=== PATIENT | male | born 1935 | race Caucasian/White ===

== ENCOUNTER 2016-05-09 17:47 | Inpatient (IN) | payer OTHER ==
[~2016-05-09] VITALS: Ht 172.7 cm; Wt 80.0 kg
[~2016-05-09 17:47] MED LIST: CHOL1TAB42 PO; FERR325T51 PO
[2016-05-09] MEDS ORDERED: LEVO50TA6 PO (18:29)
--- NOTE | 2016-05-09 18:38 | DIAGNOSTIC IMAGING REPORT ---
CHEST ONE VIEW PORTABLE CLINICAL HISTORY: Gastrointestinal hemorrhage COMPARISON STUDY: 04/21/2015 FINDINGS: The heart is enlarged. There is aortic tortuosity. There is no failure. There is no focal pulmonary consolidation. There is minor basilar atelectasis/consolidation.[ IMPRESSION: Mild cardiomegaly. No acute findings. Electronically signed by: Umang Roberson M.D. 05/09/2016 6:36 PM Dictated Date/Time: 05/09/2016 6:36 PM
[2016-05-09 19:14] LABS: INR 1.1 (0.9-1.1); PARTIAL THROMBOPLASTIN RATIO 1.2
[2016-05-09 19:20] LABS: BLOOD UREA NITROGEN 20 mg/dl (7-18); GLUCOSE 109 mg/dl (70-99)
[2016-05-09 19:21] LABS: ALT/SGPT 39 U/L (12-78); BUN/CREATININE RATIO 10.5 (10-20); CARBON DIOXIDE 23 mmol/L (21-32); CHLORIDE 111 mmol/L (98-107); POTASSIUM 3.7 mmol/L (3.5-5.1); SODIUM 146 mmol/L (136-145)
[2016-05-09 19:26] LABS: ALKALINE PHOSPHATASE 176 U/L (45-117); AST/SGOT 65 U/L (15-37)
[2016-05-09 19:52] LABS: BASO % 0.3 %; BASO ABS # 0.01 K/uL (0-0.2); COMPLETE YES; EOS % 5.4 %; HEMATOCRIT 23.1 % (42-52); IG% 0.3 %; LYMPH % 18.6 %; LYMPH ABS # 0.55 K/uL (1.2-3.4); MEAN CELL VOLUME 89.5 fL (80-100); MEAN CORPUSCULAR HEMOGLOBIN 28.7 pg (25-34); MEAN PLATELET VOLUME 11.5 fL (7.4-10.4); MONO % 6.8 %; NEUT % 68.6 %; PLATELET COUNT 68 K/uL (130-400); PLT ESTIMATE DECREASED; POLYCHROMASIA 1+; RED BLOOD COUNT 2.58 M/uL (4.7-6.1); WHITE BLOOD COUNT 2.95 K/uL (4.8-10.8)
[2016-05-09 20:49] VITALS: BP 155/80; PULSE 67; TEMP 36.7; O2SAT 96
[2016-05-09 21:10] VITALS: BP 184/103; PULSE 69; TEMP 36.9; O2SAT 96
[2016-05-09] MEDS ORDERED: SODIUM CHLORIDE 0.9% 1000ML 1,000 ML IV SCH (21:30)
[2016-05-09] MEDS ORDERED: ONDANSETRON INJ 2 MG/ML 2 ML VIAL IV PRN (21:30)
[2016-05-09] MEDS ORDERED: ACETAMINOPHEN 325 MG TAB PO PRN (21:30)
--- NOTE | 2016-05-09 21:38 | EMERGENCY ROOM VISIT NOTE ---
History Report prepared by Meghan: Mary Ho Under the Supervision of: Dr. Zhao Woo M.D. First contact with patient: 18:04 Chief Complaint: ABNORMAL LABS Stated Complaint: BLOOD LEVEL IS LOW History of Present Illness The patient is a 81 year old male who presents to the Emergency Room with complaints of sudden abnormal labs that were drawn today prior to arrival. The patient states that he had labs drawn today [facility] and was found to be anemic with a hemoglobin of 7. Per records, the patient has a history of an upper GI bleed in March of 2015, hypertension and hypothyroidism. Records indicate that the patient is normally runs chronically low. The patient states that he has been increasingly short of breath with exertion and fatigued. He additionally notes trouble urinating. The patient states that he has noticed his shortness of breath that began about two months ago. The patient's family notes that the patient last was seen by gastroenterology in November and had a colonoscopy. The family notes that the patient also has back pain due to his sciatica. Pt denies LOC, headache, fevers, chills, diaphoresis, hematemesis, visual changes, neck pain, chest pain, nausea, vomiting, abdominal pain, melena , hematochezia, urinary symptoms, numbness, weakness, lymphadenopathy, rash, or other complaints. Source of History: patient Onset: prior to arrival Position: other (global) Quality: other (abnormal labs) Timing: other (sudden) Associated Symptoms: + SOB (with exertion), + fatigue, + urinary symptoms ( trouble urinating) Review of Systems See HPI for pertinent positives and negatives. A total of ten systems were reviewed and were otherwise negative. Past Medical & Surgical Medical Problems: (1) Gastro-esophageal reflux disease without esophagitis (2) Hyperlipidemia (3) Hypertension (4) Liver disease (5) Symptomatic anemia Family History Patient reports no known family medical history. Social History Smoking Status: Former Smoker Alcohol Use: none Marital Status: Occupation Status: retired Current/Historical Medications Scheduled Allopurinol (Zyloprim), 100 MG PO DAILY Amlodipine (Norvasc), 2.5 MG PO DAILY Atorvastatin (Lipitor), 80 MG PO DAILY Carvedilol (Coreg), 0.5 TAB PO BID Ferrous Sulfate (Iron Supplement), 1 TAB PO BID Levothyroxine Sodium (Levothyroxine Sodium), 50 MCG PO QAM Magnesium Oxide (Mg Supplement (Magnesium Oxide), 1 TAB PO BID Omeprazole (Prilosec), 20 MG PO DAILY Sodium Bicarbonate (Sodium Bicarbonate), 1 TAB PO BID Tamsulosin Hcl (Flomax), 0.4 MG PO DAILY Allergies Coded Allergies: Lisinopril (Unverified Allergy, Unknown, UNKNOWN, 05/09/16) Physical Exam Vital Signs Date Time Temp Pulse Resp B/P Pulse Ox O2 Delivery O2 Flow Rate FiO2 05/09/16 21:10 36.9 69 18 184/103 96 05/09/16 20:49 36.7 67 18 155/80 96 05/09/16 20:01 94 18 143/83 97 Room Air 05/09/16 19:20 64 05/09/16 19:00 98 Room Air 05/09/16 17:59 37.0 70 20 117/72 96 Room Air Physical Exam GENERAL: Awake, alert, tired-appearing, in no distress. Mildly short of breath HENT: Normocephalic, atraumatic. Oropharynx unremarkable. EYES: Pale conjunctiva. Sclera non-icteric. NECK: Supple. No nuchal rigidity. FROM. No JVD. RESPIRATORY: Clear to auscultation. CARDIAC: Regular rate, normal rhythm. Extremities warm and well perfused. Pulses equal. ABDOMEN: Soft, non-distended. No tenderness to palpation. No rebound or guarding. No masses. RECTAL: Brown stool, heme positive. MUSCULOSKELETAL: Chest examination reveals no tenderness. The back is symmetrical on inspection without obvious abnormality. There is no CVA tenderness to palpation. No joint edema. LOWER EXTREMITIES: Calves are equal size bilaterally and non-tender. No edema. No discoloration. NEURO: Normal sensorium. No sensory or motor deficits noted. SKIN: No rash or jaundice noted. Medical Decision & Procedures ER Provider Diagnostic Interpretation: X-ray: Per my interpretation, radiologist review. CHEST ONE VIEW PORTABLE CLINICAL HISTORY: Gastrointestinal hemorrhage COMPARISON STUDY: 04/21/2015 FINDINGS: The heart is enlarged. There is aortic tortuosity. There is no failure. There is no focal pulmonary consolidation. There is minor basilar atelectasis/consolidation.[ IMPRESSION: Mild cardiomegaly. No acute findings. Electronically signed by: Umang Roberson M.D. 05/09/2016 6:36 PM Dictated Date/Time: 05/09/2016 6:36 PM Laboratory Results 05/09/16 18:50 Red Blood Count 2.58, Mean Corpuscular Volume 89.5, Mean Corpuscular Hemoglobin 28.7, Mean Corpuscular Hemoglobin Concent 32.0, Mean Platelet Volume 11.5, Neutrophils (%) (Auto) 68.6, Lymphocytes (%) (Auto) 18.6, Monocytes (%) (Auto) 6.8, Eosinophils (%) (Auto) 5.4, Basophils (%) (Auto) 0.3, Neutrophils # (Auto) 2.02, Lymphocytes # (Auto) 0.55, Monocytes # (Auto) 0.20, Eosinophils # (Auto) 0.16, Basophils # (Auto) 0.01 05/09/16 18:50 Test 05/09/16 18:50 White Blood Count 2.95 K/uL (4.8-10.8) Red Blood Count 2.58 M/uL (4.7-6.1) Hemoglobin 7.4 g/dL (14.0-18.0) Hematocrit 23.1 % (42-52) Mean Corpuscular Volume 89.5 fL (80-100) Mean Corpuscular Hemoglobin 28.7 pg (25-34) Mean Corpuscular Hemoglobin Concent 32.0 g/dl (32-36) Platelet Count 68 K/uL (130-400) Mean Platelet Volume 11.5 fL (7.4-10.4) Neutrophils (%) (Auto) 68.6 % Lymphocytes (%) (Auto) 18.6 % Monocytes (%) (Auto) 6.8 % Eosinophils (%) (Auto) 5.4 % Basophils (%) (Auto) 0.3 % Neutrophils # (Auto) 2.02 K/uL (1.4-6.5) Lymphocytes # (Auto) 0.55 K/uL (1.2-3.4) Monocytes # (Auto) 0.20 K/uL (0.11-0.59) Eosinophils # (Auto) 0.16 K/uL (0-0.5) Basophils # (Auto) 0.01 K/uL (0-0.2) RDW Standard Deviation 52.8 fL (36.4-46.3) RDW Coefficient of Variation 16.2 % (11.5-14.5) Immature Granulocyte % (Auto) 0.3 % Immature Granulocyte # (Auto) 0.01 K/uL (0.00-0.02) Platelet Estimate DECREASED Polychromasia 1+ Prothrombin Time 12.0 SECONDS (9.0-12.0) Prothromb Time International Ratio 1.1 (0.9-1.1) Activated Partial Thromboplast Time 31.6 SECONDS (21.0-31.0) Partial Thromboplastin Ratio 1.2 Anion Gap 12.0 mmol/L (3-11) Est Creatinine Clear Calc Drug Dose 33.7 ml/min Estimated GFR () 38.0 Estimated GFR (Non- 32.8 BUN/Creatinine Ratio 10.5 (10-20) Calcium Level 8.0 mg/dl (8.5-10.1) Total Bilirubin 0.7 mg/dl (0.2-1) Direct Bilirubin 0.2 mg/dl (0-0.2) Aspartate Amino Transf (AST/SGOT) 65 U/L (15-37) Alanine Aminotransferase (ALT/SGPT) 39 U/L (12-78) Alkaline Phosphatase 176 U/L (45-117) Troponin I < 0.015 ng/ml (0-0.045) Total Protein 6.9 gm/dl (6.4-8.2) Albumin 3.0 gm/dl (3.4-5.0) Lipase 202 U/L (73-393) Laboratory results reviewed by me ECG Indication: other (abnormal labs) Rate (beats per minute): 67 Rhythm: sinus rhythm Findings: 1st degree AV block, no acute ischemic change, prolonged QT, other ( LVH) ED Course 1803: The patient was evaluated in room A12B. A complete history and physical exam was performed by the medical student. 1849: The patient was evaluated in room A12B. A complete history and physical exam was performed. 2034: I reevaluated the patient and he is resting comfortably. I discussed the exam findings with him and his family and I discussed the treatment plan. He verbalized complete understanding and agreement. The patient will receive a unit of blood and will be evaluated for further treatment. 2041: I discussed the patients case with Devin Cortez. He is going to evaluate the patient for further treatment. Medical Decision Triage Nursing notes reviewed. The patient's presentation and history were concerning for symptomatic anemia with history of GI bleeding. Etiologies such as anemia, diverticulosis, AVM, coagulopathy, colitis, inflammatory bowel disease, malignancy,Mari-Green tear, esophagitis, peptic ulcer disease, variceal bleed, gastritis, as well as others were entertained. Patient was evaluated. He had no specific complaints other than feeling tired and short of breath with exertion. He had pale conjunctiva. The patient's rectal examination had brown stool that was Hemoccult positive. Record review indicates a long history of GI bleeding issues. The patient was typed and crossed. His CBC was done and confirmed his significant anemia with a hemoglobin of 7.4. Chemistry panel was unremarkable. The patient was consented for blood transfusion. The patient was given 2 units of packed red blood cells. Family was in agreement.I gave my usual and customary discussion regarding this issue. [facility] The patient was evaluated in the Emergency Room for further treatment. The chart was completed utilizing [employer] Speech voice recognition software. Grammatical errors, random word insertions, pronoun errors, and incomplete sentences are an occasional consequence of this system due to software limitations, ambient noise, and hardware issues. Any formal questions or concerns about the content, text, or information contained within the body of this dictation should be directly addressed to the physician for clarification. Consults Time Called: 2034 Consulting Physician: Devin Cortez Returned Call: 2041 I discussed the patients case with Devin Cortez. He is going to evaluate the patient for further treatment. Impression Primary Impression: Symptomatic anemia Additional Impression: GI bleed Critical Care I have personally spent greater than 30 minutes of critical care time in the direct management of this patient. This includes bedside care, interpretation of diagnostic studies, and testing, discussion with consultants, patient, and family members, and other required patient management activities. This 30 minutes is in excess of all separately billable procedures. Scribe Attestation The scribe's documentation has been prepared under my direction and personally reviewed by me in its entirety. I confirm that the note above accurately reflects all work, treatment, procedures, and medical decision making performed by me. Departure Information Dispostion Being Evaluated By Hospitalist Referrals Vilma Gooden M.D. (PCP)
[2016-05-09 21:40] VITALS: BP 171/86; PULSE 72; TEMP 36.8; O2SAT 96
[2016-05-09] MEDS ORDERED: PANTOprazole INJ 40 MG in SYRINGE 0 ML IV ONE (21:45)
[2016-05-09 21:58] LABS: URINE APPEARANCE CLEAR (CLEAR); URINE BILIRUBIN NEG (NEG); URINE COLOR YELLOW; URINE NITRITE NEG (NEG); URINE PH 6.5 (4.5-7.5); URINE SPECIFIC GRAVITY 1.013 (1.000-1.030); UROBILINOGEN NEG (NEG)
[2016-05-09 22:00] VITALS: BP 171/90; PULSE 68; TEMP 36.7; O2SAT 97
[2016-05-09 22:00] LABS: MANUAL MICROSCOPIC REQUIRED? NO; REVIEW REQ? NO
--- NOTE | 2016-05-09 22:24 | History and Physical ---
History & Physical Date & Time of Service: May 09, 2016 at 21:40 Chief Complaint: Blood Level Is Low Primary Care Physician: Vilma Gooden M.D. 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 Pt sees Dr. Gooden for primary care and Dr. Milian for GI. Pt had labs done at the [facility] today which showed Hg of 7 and was instructed to come to ER. Pt states lately he has felt dizzy while ambulating, POWELL, and fatigued, similar to when he was anemic in the past. No dizziness or SOB while at rest. Last week he was ill with vomiting and diarrhea which resolved over the weekend. He did not notice any hematemesis or coffee ground emesis. Now having BM once a day. Stools are black in color "for a long time." Family notes he is on an iron pill. No BPRPR. No fevers, chills, URI symptoms, cough, chest pain, abdominal pain, bloating, jaundice, confusion, urinary change, hematuria, epistaxis, gum bleeding. Daughter states last transfusion was in summer of 2015. Last colonoscopy 12/01/15 showed polyp, AVMs s/p thermal therapy and clipped, diverticulosis, and hemorrhoids. Past Medical/Surgical History Medical Problems: (1) Anemia Status: Chronic (2) BPH (benign prostatic hypertrophy) Status: Chronic (3) Cirrhosis Status: Chronic (4) CKD (chronic kidney disease), stage III Status: Chronic (5) Dyslipidemia Status: Chronic (6) Esophageal varices Permanent Comment: Mar 2015- small varices, mild erosive antral gastritis Status: Chronic (7) GERD (gastroesophageal reflux disease) Status: Chronic (8) History of non-ST elevation myocardial infarction (NSTEMI) Permanent Comment: in October 2010 secondary to severe anemia Status: Chronic (9) Hypertension Status: Chronic (10) Hypothyroidism Status: Chronic (11) Liver disease Status: Chronic (12) NAFLD (nonalcoholic fatty liver disease) Status: Chronic (13) Paroxysmal atrial fibrillation Status: Chronic (14) Thrombocytopenia Status: Chronic Surgical Problems: (1) H/O colonoscopy Permanent Comment: 2010- adenomatous polyps; 11/2016- polyp, AVM's treated with thermal therapy and clipped, diverticulosis, hemorrhoids Status: Chronic (2) H/O esophagogastroduodenoscopy Permanent Comment: Mar 2015- small varices, mild erosive antral gastritis Status: Chronic Family History FH: CAD (coronary artery disease) FATHER Social History Smoking Status: Former Smoker Marital Status: Housing status: lives alone Occupational Status: retired Immunizations History of Influenza Vaccine: No History of Tetanus Vaccine?: Unknown History of Pneumococcal: No History of Hepatitis B Vaccine: No Allergies Coded Allergies: Lisinopril (Unverified Allergy, Unknown, UNKNOWN, 05/09/16) Home Medications Scheduled Allopurinol (Zyloprim), 100 MG PO Q2D Amlodipine (Norvasc), 2.5 MG PO DAILY Atorvastatin (Lipitor), 40 MG PO HS Carvedilol (Coreg), 12.5 MG PO BID Ferrous Sulfate (Iron Supplement), 1 TAB PO BID Levothyroxine Sodium (Levothyroxine Sodium), 50 MCG PO QAM Magnesium Oxide (Mg Supplement (Magnesium Oxide), 1 TAB PO BID Omeprazole (Prilosec), 20 MG PO BID Sodium Bicarbonate (Sodium Bicarbonate), 1 TAB PO BID Tamsulosin Hcl (Flomax), 0.4 MG PO DAILY Review of Systems Ten point review of systems performed with pertinent positives and negatives noted in HPI. All other systems negative. Physical Exam Vital Signs Date Time Temp Pulse Resp B/P Pulse Ox O2 Delivery O2 Flow Rate FiO2 05/09/16 20:49 36.7 67 18 155/80 96 05/09/16 20:01 94 18 143/83 97 Room Air 05/09/16 19:20 64 05/09/16 19:00 98 Room Air 05/09/16 17:59 37.0 70 20 117/72 96 Room Air General Appearance: WD/WN, no apparent distress, + pertinent finding (alert cooperative elderly male, appears fatigued but comfortable, blood transfusing, daughters at bedside) Head: normocephalic, atraumatic Eyes: normal inspection, PERRL, EOMI ENT: hearing grossly normal, pharynx normal Neck: supple, trachea midline Respiratory/Chest: lungs clear, normal breath sounds, no respiratory distress, no accessory muscle use Cardiovascular: regular rate, rhythm, no murmur Abdomen/GI: normal bowel sounds, non tender, soft Extremities/Musculoskelatal: normal inspection, no calf tenderness, no pedal edema Neurologic/Psych: alert, normal mood/affect, oriented x 3, + pertinent finding (no gross focal deficit) Skin: normal color, warm/dry Diagnostics Laboratory Results Results Past 24 Hours Test 05/09/16 18:50 Range/Units White Blood Count 2.95 4.8-10.8 K/uL Red Blood Count 2.58 4.7-6.1 M/uL Hemoglobin 7.4 14.0-18.0 g/dL Hematocrit 23.1 42-52 % Mean Corpuscular Volume 89.5 80-100 fL Mean Corpuscular Hemoglobin 28.7 25-34 pg Mean Corpuscular Hemoglobin Concent 32.0 32-36 g/dl Platelet Count 68 130-400 K/uL Mean Platelet Volume 11.5 7.4-10.4 fL Neutrophils (%) (Auto) 68.6 % Lymphocytes (%) (Auto) 18.6 % Monocytes (%) (Auto) 6.8 % Eosinophils (%) (Auto) 5.4 % Basophils (%) (Auto) 0.3 % Neutrophils # (Auto) 2.02 1.4-6.5 K/uL Lymphocytes # (Auto) 0.55 1.2-3.4 K/uL Monocytes # (Auto) 0.20 0.11-0.59 K/uL Eosinophils # (Auto) 0.16 0-0.5 K/uL Basophils # (Auto) 0.01 0-0.2 K/uL RDW Standard Deviation 52.8 36.4-46.3 fL RDW Coefficient of Variation 16.2 11.5-14.5 % Immature Granulocyte % (Auto) 0.3 % Immature Granulocyte # (Auto) 0.01 0.00-0.02 K/uL Platelet Estimate DECREASED Polychromasia 1+ Prothrombin Time 12.0 9.0-12.0 SECONDS Prothromb Time International Ratio 1.1 0.9-1.1 Activated Partial Thromboplast Time 31.6 21.0-31.0 SECONDS Partial Thromboplastin Ratio 1.2 Sodium Level 146 136-145 mmol/L Potassium Level 3.7 3.5-5.1 mmol/L Chloride Level 111 98-107 mmol/L Carbon Dioxide Level 23 21-32 mmol/L Anion Gap 12.0 3-11 mmol/L Blood Urea Nitrogen 20 7-18 mg/dl Creatinine 1.90 0.60-1.40 mg/dl Est Creatinine Clear Calc Drug Dose 33.7 ml/min Estimated GFR () 38.0 Estimated GFR (Non- 32.8 BUN/Creatinine Ratio 10.5 10-20 Random Glucose 109 70-99 mg/dl Calcium Level 8.0 8.5-10.1 mg/dl Total Bilirubin 0.7 0.2-1 mg/dl Direct Bilirubin 0.2 0-0.2 mg/dl Aspartate Amino Transf (AST/SGOT) 65 15-37 U/L Alanine Aminotransferase (ALT/SGPT) 39 12-78 U/L Alkaline Phosphatase 176 45-117 U/L Troponin I < 0.015 0-0.045 ng/ml Total Protein 6.9 6.4-8.2 gm/dl Albumin 3.0 3.4-5.0 gm/dl Lipase 202 73-393 U/L Diagnostic Radiology CHEST ONE VIEW PORTABLE CLINICAL HISTORY: Gastrointestinal hemorrhage COMPARISON STUDY: 04/21/2015 FINDINGS: The heart is enlarged. There is aortic tortuosity. There is no failure. There is no focal pulmonary consolidation. There is minor basilar atelectasis/consolidation.[ IMPRESSION: Mild cardiomegaly. No acute findings. EKG sinus rhythm with 1st degree AV block, poor R wave progression, nonspecific T wave abnormality in anterior leads, in comparison to prior EKG the T wave inversion in anterior leads is new Impression Assessment and Plan SYMPTOMATIC ANEMIA Secondary to GI bleed Hemodynamically stable Transfuse 2 units pRBC Recheck H/H 4 hours after transfusion and CBC in am GI BLEED Heme positive brown stool per ER provider's exam History of esophageal varices, gastritis, intestinal AVM's Ice chips and sips -> NPO past midnight IV fluids at 100 mL/hour IV Protonix BID Consult GI CIRRHOSIS Due to NAFLD Complicated by varices CAD History of NSTEMI in October 2010 secondary to anemia Denies chest pain EKG- nonspecific abnormalities Initial troponin negative Trend serial cardiac enzymes Continue BB and statin Aspirin contraindicated HYPOTHYROIDISM On levothyroxine 50 mcg daily- family states TSH was high at [facility] today and they planned to increase to 75 mcg/ daily Check TSH in am and adjust as indicated CKD STAGE III Cr is 1.9 (baseline 1.7-1.8) Monitor renal function and avoid nephrotoxins PAROXYSMAL ATRIAL FIBRILLATION Rate controlled Continue beta nohemi Not on anticoagulation due to hx GIB/ anemia BPH Continue Flomax DVT PROPHYLAXIS SCD's due to GIB/ anemia/ thrombocytopenia CODE STATUS DNR per my discussion with patient and family DISPOSITION Admitted to telemetry Lives independently at home Follows with Dr. Gooden for primary care Patient seen in collaboration with Dr. Mckeon. Please see his addendum. ADDENDUM: This is a 81 year old male with PMH of liver cirrhosis secondary to GALEANO, anemia secondary to GI bleeding, including esophageal varices, gastritis, duodenal AVM, hx. of NSTEMI secondary to anemia, paroxysmal atrial fibrillation presents with dizziness/weakness/shortness of breath - was told to come to the ER by PCP due to his Hgb being down to 7.0 on outpatient labwork - he presented here and was receiving transfusion when I saw him and he was doing well. No acute distress, +weakness CTA b/l, no wheezing +S1, S2, RRR Symptomatic Anemia -->likely due to GI bleeding -->PPI BID -->transfuse 2 units PRBCs - check H/H four hours post-transfusion -->GI consultation for further input Hypothyroidism -->check TSH in AM -->adjust synthroid dose in AM after TSH drawn VTE Prophylaxis VTE Risk Assessment Done? Y/N: Yes Risk Level: Moderate
[2016-05-09 23:00] VITALS: BP 172/81; PULSE 61; TEMP 36.7; O2SAT 96
[2016-05-09 23:50] VITALS: BP 152/74; PULSE 67; TEMP 36.7; O2SAT 96
[2016-05-10] VITALS (13 sets, daily range): BP systolic 138–188; BP diastolic 73–88; PULSE 58–72; TEMP 36.3–36.9; O2SAT 94–98; Ht 172.7 cm; Wt 80.0 kg
[2016-05-10 03:11] LABS: HEMATOCRIT 27.1 % (42-52); MEAN CELL VOLUME 87.1 fL (80-100); MEAN CORPUSCULAR HEMOGLOBIN 28.3 pg (25-34); MEAN CORPUSCULAR HGB CONC 32.5 g/dl (32-36); MEAN PLATELET VOLUME 11.4 fL (7.4-10.4); PLATELET COUNT 65 K/uL (130-400); RED BLOOD COUNT 3.11 M/uL (4.7-6.1); WHITE BLOOD COUNT 3.27 K/uL (4.8-10.8)
[2016-05-10 03:30] LABS: BLOOD UREA NITROGEN 19 mg/dl (7-18); BUN/CREATININE RATIO 11.4 (10-20); CALCIUM 8.2 mg/dl (8.5-10.1); CARBON DIOXIDE 25 mmol/L (21-32); CHLORIDE 111 mmol/L (98-107); GLUCOSE 123 mg/dl (70-99); MAGNESIUM 1.8 mg/dl (1.8-2.4); POTASSIUM 3.7 mmol/L (3.5-5.1); SODIUM 145 mmol/L (136-145)
[2016-05-10 03:40] LABS: CKMB/CK RATIO 0.9 (0-3.0)
[2016-05-10] MEDS ORDERED: PNEUMOCOCCAL POLYSACCHARIDES 25 MCG/0.5 ML VIAL/SYR IM. ONE (04:00)
[2016-05-10] MEDS ORDERED: INFLUENZA ADMINISTRATION CHARGE ONE (04:00)
[2016-05-10] MEDS ORDERED: INFLUENZA VIRUS QUAD VACCINE 0.5 ML SYR IM. ONE (04:00)
[2016-05-10] MEDS ORDERED: PNEUMOCOCCAL ADMINISTRATION CHARGE ONE (04:00)
[2016-05-10] MEDS ORDERED: AMLODIPINE BESYLATE 5 MG TAB PO ONE (04:30)
[2016-05-10] MEDS ORDERED: LEVOTHYROXINE 50 MCG TAB PO SCH (07:00)
[2016-05-10] MEDS: AMLODIPINE BESYLATE 5 MG TAB PO SCH (07:16)
[2016-05-10] MEDS: CARVEDILOL 12.5 MG TAB PO SCH ×2 (07:17→20:41)
[2016-05-10] MEDS: SODIUM BICARBONATE 650 MG TAB PO SCH ×2 (07:17→20:42)
[2016-05-10] MEDS: PANTOprazole INJ 40 MG in SYRINGE 0 ML IV SCH ×2 (07:17→20:41)
[2016-05-10] MEDS: TAMSULOSIN HCL 0.4 MG CAP PO SCH (07:18)
[2016-05-10] MEDS: FERROUS SULFATE 325 MG TAB PO SCH ×2 (07:18→21:30)
--- NOTE | 2016-05-10 08:53 | Gastrointestinal Consultation ---
Gastrointestinal Consultation Date of Consultation: May 10, 2016 Consulting Physician: Dr. 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 He was symptomatic at the time, reporting fatigue, dizziness and POWELL. He reports intermittent dark stools, normally semi formed, occurring anywhere between 2-3 times daily for the past 3-4 months. He denies any abdominal cramping and any other associated symptoms with stooling. He denies fevers, chills, URI symptoms, chest pain, abdominal pain, bloating, jaundice, confusion, urinary change, BRBPR, bloody/coffee ground emesis. Patient states that he has been taking iron tablets since _ EGD 03/16/15: Grade I esophageal varices.Erosive gastropathy most likely from NSAID/ASA use. Normal examined duodenum. Colonoscopy 11/28/15: polyps, AVM, diverticulosis, hemorrhoid Past Medical/Surgical History Medical Problems: (1) Acute renal failure Status: Acute (2) GI bleed Status: Acute Family History FH: CAD (coronary artery disease) FATHER Social History Smoking Status: Former Smoker Alcohol Use: none Marital Status: Occupation Status: retired Allergies Coded Allergies: Lisinopril (Unverified Allergy, Unknown, UNKNOWN, 05/09/16) Current Medications Home Meds and Scripts Medications Dose Route/Sig Max Daily Dose Days Date Category Levothyroxine Sodium 50 Mcg Tab 50 Mcg PO QAM 90 05/09/16 Reported Norvasc (Amlodipine Besylate) 2.5 Mg Tab 2.5 Mg PO DAILY 05/09/16 Reported Prilosec (Omeprazole) 20 Mg Capcr 20 Mg PO BID 11/22/15 Reported Coreg (Carvedilol) 25 Mg Tab 12.5 Mg PO BID 11/22/15 Reported Lipitor (Atorvastatin Calcium) 80 Mg Tab 40 Mg PO HS 11/22/15 Reported Flomax (Tamsulosin Hcl) 0.4 Mg Cap 0.4 Mg PO DAILY 11/22/15 Reported Zyloprim (Allopurinol) 100 Mg Tab 100 Mg PO Q2D 11/22/15 Reported Magnesium Oxide (Magnesium Oxide (Mg Supplement) 400 Mg Tab 1 Tab PO BID 11/22/15 Reported Sodium Bicarbonate 650 Mg Tab 1 Tab PO BID 11/22/15 Reported Iron Supplement (Ferrous Sulfate) 325 Mg Tab 1 Tab PO BID 30 11/22/15 Reported Review of Systems Constitutional: No chills, No fever Respiratory: + shortness of breath, No cough Cardiac: No chest pain, No edema Abdomen: + GI bleeding (numerous dark stools x 3 months), No constipation, No diarrhea, No nausea, No pain, No vomiting Physical Exam Date Time Temp Pulse Resp B/P Pulse Ox O2 Delivery O2 Flow Rate FiO2 05/10/16 07:13 36.7 63 18 154/81 97 Room Air 05/10/16 04:00 Room Air 05/10/16 03:51 36.7 05/10/16 03:32 36.7 71 22 176/88 98 Room Air 05/10/16 03:13 Room Air 05/10/16 01:34 36.7 68 18 178/84 97 05/10/16 00:30 36.7 72 20 171/88 94 05/10/16 00:00 36.8 68 16 180/85 96 05/09/16 23:50 36.7 67 20 152/74 96 05/09/16 23:35 72 05/09/16 23:00 36.7 61 20 172/81 96 05/09/16 22:10 36.7 68 20 171/90 97 05/09/16 22:00 36.7 68 20 171/90 97 05/09/16 21:40 36.8 72 18 171/86 96 05/09/16 21:10 36.9 69 18 184/103 96 05/09/16 20:49 36.7 67 18 155/80 96 05/09/16 20:01 94 18 143/83 97 Room Air 05/09/16 19:20 64 05/09/16 19:00 98 Room Air 05/09/16 17:59 37.0 70 20 117/72 96 Room Air General Appearance: no apparent distress Eyes: PERRL ENT: hearing grossly normal Neck: supple, trachea midline Respiratory/Chest: chest non-tender, lungs clear, normal breath sounds, no respiratory distress, no accessory muscle use Cardiovascular: regular rate, rhythm, no edema, no gallop, no JVD, no murmur Abdomen: normal bowel sounds, non tender, soft, no organomegaly Neurologic/Psych: alert, normal mood/affect, oriented x 3 Skin: normal color, no jaundice, warm/dry, no rash Laboratory Results Last 24 Hours Test 05/09/16 18:50 05/09/16 21:51 05/10/16 02:52 05/10/16 06:00 White Blood Count 2.95 K/uL 3.27 K/uL Red Blood Count 2.58 M/uL 3.11 M/uL Hemoglobin 7.4 g/dL 8.8 g/dL Hematocrit 23.1 % 27.1 % Mean Corpuscular Volume 89.5 fL 87.1 fL Mean Corpuscular Hemoglobin 28.7 pg 28.3 pg Mean Corpuscular Hemoglobin Concent 32.0 g/dl 32.5 g/dl Platelet Count 68 K/uL 65 K/uL Mean Platelet Volume 11.5 fL 11.4 fL Neutrophils (%) (Auto) 68.6 % Lymphocytes (%) (Auto) 18.6 % Monocytes (%) (Auto) 6.8 % Eosinophils (%) (Auto) 5.4 % Basophils (%) (Auto) 0.3 % Neutrophils # (Auto) 2.02 K/uL Lymphocytes # (Auto) 0.55 K/uL Monocytes # (Auto) 0.20 K/uL Eosinophils # (Auto) 0.16 K/uL Basophils # (Auto) 0.01 K/uL RDW Standard Deviation 52.8 fL 51.8 fL RDW Coefficient of Variation 16.2 % 16.2 % Immature Granulocyte % (Auto) 0.3 % Immature Granulocyte # (Auto) 0.01 K/uL Platelet Estimate DECREASED Polychromasia 1+ Prothrombin Time 12.0 SECONDS Prothromb Time International Ratio 1.1 Activated Partial Thromboplast Time 31.6 SECONDS Partial Thromboplastin Ratio 1.2 Sodium Level 146 mmol/L 145 mmol/L Potassium Level 3.7 mmol/L 3.7 mmol/L Chloride Level 111 mmol/L 111 mmol/L Carbon Dioxide Level 23 mmol/L 25 mmol/L Anion Gap 12.0 mmol/L 9.0 mmol/L Blood Urea Nitrogen 20 mg/dl 19 mg/dl Creatinine 1.90 mg/dl 1.70 mg/dl Est Creatinine Clear Calc Drug Dose 33.7 ml/min 37.6 ml/min Estimated GFR () 38.0 43.5 Estimated GFR (Non- 32.8 37.5 BUN/Creatinine Ratio 10.5 11.4 Random Glucose 109 mg/dl 123 mg/dl Calcium Level 8.0 mg/dl 8.2 mg/dl Total Bilirubin 0.7 mg/dl Direct Bilirubin 0.2 mg/dl Aspartate Amino Transf (AST/SGOT) 65 U/L Alanine Aminotransferase (ALT/SGPT) 39 U/L Alkaline Phosphatase 176 U/L Troponin I < 0.015 ng/ml < 0.015 ng/ml Total Protein 6.9 gm/dl Albumin 3.0 gm/dl Lipase 202 U/L Urine Color YELLOW Urine Appearance CLEAR Urine pH 6.5 Urine Specific [place] 1.013 Urine Protein NEG Urine Glucose (UA) NEG Urine Ketones NEG Urine Occult Blood NEG Urine Nitrite NEG Urine Bilirubin NEG Urine Urobilinogen NEG Urine Leukocyte Esterase NEG Magnesium Level 1.8 mg/dl Total Creatine Kinase 105 U/L Creatine Kinase MB 0.9 ng/ml Creatine Kinase MB Ratio 0.9 Thyroid Stimulating Hormone (TSH) 6.020 uIu/ml Impression Patient is a 81 year old male who was admitted with symptomatic anemia and intermittent dark stools x 3 months. He has a hx of GI bleed and diagnosed varices on EGD. Rule out GI bleed Plan NPO EGD with [facility]
[2016-05-10] MEDS ORDERED: NON-FORMULARY MEDICATION (Omeprazole (Prilosec) 20 MG) PO SCH (09:00)
[2016-05-10 11:19] LABS: CKMB/CK RATIO 0.8 (0-3.0)
--- NOTE | 2016-05-10 12:59 | Anesthesiology Progress Note ---
Anesthesia Post Op Note Date & Time May 10, 2016 at 12:58 Vital Signs Pain Intensity: 0.0 Vital Signs Past 12 Hours Date Time Temp Pulse Resp B/P Pulse Ox O2 Delivery O2 Flow Rate FiO2 05/10/16 12:45 83 18 150/63 98 Room Air 05/10/16 12:30 83 18 106/54 97 Room Air 05/10/16 11:41 36.8 63 18 173/87 98 Room Air 05/10/16 11:13 36.8 68 18 138/78 98 Room Air 05/10/16 09:50 58 18 160/83 96 05/10/16 08:00 96 Room Air 05/10/16 07:13 36.7 63 18 154/81 97 Room Air 05/10/16 04:00 Room Air 05/10/16 03:51 36.7 05/10/16 03:32 36.7 71 22 176/88 98 Room Air 05/10/16 03:13 Room Air 05/10/16 01:34 36.7 68 18 178/84 97 Notes Mental Status: alert / awake / arousable, participated in evaluation Pt Amnestic to Procedure: Yes Nausea / Vomiting: adequately controlled Pain: adequately controlled Airway Patency, RR, SpO2: stable & adequate BP & HR: stable & adequate Hydration State: stable & adequate Anesthetic Complications: no major complications apparent
--- NOTE | 2016-05-10 13:31 | GI REPORT ---
Procedure Date: 05/10/2016 12:05 PM Procedure: Upper GI endoscopy Indications: Iron deficiency anemia Medicines: See the Anesthesia note for documentation of the administered medications Complications: No immediate complications. Estimated Blood Loss: Estimated blood loss: none. Procedure: Pre-Anesthesia Assessment: - ASA Grade Assessment: III - A patient with severe systemic disease. After obtaining informed consent, the endoscope was passed under direct vision. Throughout the procedure, the patient's blood pressure, pulse, and oxygen saturations were monitored continuously. The scope was introduced through the mouth, and advanced to the proximal jejunum. The upper GI endoscopy was accomplished without difficulty. The patient tolerated the procedure well. Findings: Grade II-III varices were found in the middle third of the esophagus and in the lower third of the esophagus,. No stigmata of recent bleeding were evident and red leroy signs were present. There was evidence of prior banding. There were no gastric varices. There was mild portal gastropathy in the body and fundus. There were mild stripes of erythema in the antrum, with a few nodular erosions. 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 A few lymphoceles were seen in the second portion of the duodenum. The duodenum was otherwise normal. Impression: - Non-bleeding grade III esophageal varices. Mild portal gastropathy. Mild erythema in antrum - suggestive of GAVE. Recommendation: - Discharge patient to floor. - He is currently on non-selective betablocker with a heart rate in the 50's. I would prefer to avoid the need for multiple procedures, and feel that banding may cause dysphagia and may worsen portal HTN gastropathy --> EVL not done. Wilma Milian M.D. Wilma Milian MD 05/10/2016 1:29:48 PM This report has been signed electronically. Note Initiated On: 05/10/2016 12:05 PM
[2016-05-10] MEDS ORDERED: LIDOCAINE HCL 2% 2 ML VIAL (20MG/ML) ONE (13:43)
[2016-05-10] MEDS ORDERED: PROPOFOL IV EMULSION 10 MG/ML 20 ML VIAL IV ONE (13:43)
[2016-05-10] MEDS ORDERED: D5NSS + 20MEQ KCL 1,000 ML IV SCH (16:00)
[2016-05-10] MEDS: HydrALAZINE HCL 20 MG/ML VIAL IV. PRN (16:05)
--- NOTE | 2016-05-10 18:35 | Progress Note ---
Internal Med Progress Note Date of Service: May 10, 2016. Provider Documentation: SUBJECTIVE: resting comfortably s/p egd no signs of active bleeding ants to eat no nausea or abdominal pain OBJECTIVE: Vital Signs-as noted below Exam: General-alert and oriented x 3 ENT-normal hearing Neck-no neck masses Lungs-cta b/l no wheezing or rhonchi Heart-s1 and s2 heard regular rate and rhythm, no murmurs Abdomen-soft bowel sounds present non tender no distension Extremities-no edema no erythema Neuro-alert and awake moves extremities Lab data as noted below. 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 Complicated by varices f/u as out patinet CAD History of NSTEMI in October 2010 secondary to anemia asymptomatic on BB and statin CE negative Aspirin contraindicated HTN o amlodipine and coreg elevated hydralazine prn HYPOTHYROIDISM On levothyroxine 50 mcg daily- family states TSH was high at [place] today and they planned to increase to 75 mcg/ daily Check TSH in am and adjust as indicated CKD STAGE III Cr is 1.9 (baseline 1.7-1.8) cr 1.7 today at baseline Monitor renal function and avoid nephrotoxins PAROXYSMAL ATRIAL FIBRILLATION Rate controlled on beta nohemi Not on anticoagulation due to hx GIB/ anemia BPH on Flomax DVT PROPHYLAXIS SCD's due to GIB/ anemia/ thrombocytopenia CODE STATUS DNR per h and p DISPOSITION monitor in telemetry ambulate in hallway Lives independently at home possible d/c in am if stable Follows with Dr. Gooden for primary care Vital Signs: Date Time Temp Pulse Resp B/P Pulse Ox O2 Delivery O2 Flow Rate FiO2 05/10/16 16:04 60 180/83 05/10/16 16:00 Room Air 05/10/16 15:12 36.3 60 20 188/81 97 Room Air 05/10/16 13:20 36.7 58 18 166/78 97 Room Air 178/81 05/10/16 13:00 81 18 141/71 98 Room Air 05/10/16 12:45 83 18 150/63 98 Room Air 05/10/16 12:30 83 18 106/54 97 Room Air 05/10/16 11:41 36.8 63 18 173/87 98 Room Air 05/10/16 11:13 36.8 68 18 138/78 98 Room Air 05/10/16 09:50 58 18 160/83 96 05/10/16 08:00 96 Room Air 05/10/16 07:13 36.7 63 18 154/81 97 Room Air 05/10/16 04:00 Room Air 05/10/16 03:51 36.7 05/10/16 03:32 36.7 71 22 176/88 98 Room Air 05/10/16 03:13 Room Air 05/10/16 01:34 36.7 68 18 178/84 97 05/10/16 00:30 36.7 72 20 171/88 94 05/10/16 00:00 36.8 68 16 180/85 96 05/09/16 23:50 36.7 67 20 152/74 96 05/09/16 23:35 72 05/09/16 23:00 36.7 61 20 172/81 96 05/09/16 22:10 36.7 68 20 171/90 97 05/09/16 22:00 36.7 68 20 171/90 97 05/09/16 21:40 36.8 72 18 171/86 96 05/09/16 21:10 36.9 69 18 184/103 96 05/09/16 20:49 36.7 67 18 155/80 96 05/09/16 20:01 94 18 143/83 97 Room Air 05/09/16 19:20 64 05/09/16 19:00 98 Room Air Lab Results: Results Past 24 Hours Test 05/09/16 18:50 05/09/16 21:51 05/10/16 02:52 05/10/16 08:55 Range/Units White Blood Count 2.95 3.27 4.8-10.8 K/uL Red Blood Count 2.58 3.11 4.7-6.1 M/uL Hemoglobin 7.4 8.8 14.0-18.0 g/dL Hematocrit 23.1 27.1 42-52 % Mean Corpuscular Volume 89.5 87.1 80-100 fL Mean Corpuscular Hemoglobin 28.7 28.3 25-34 pg Mean Corpuscular Hemoglobin Concent 32.0 32.5 32-36 g/dl Platelet Count 68 65 130-400 K/uL Mean Platelet Volume 11.5 11.4 7.4-10.4 fL Neutrophils (%) (Auto) 68.6 % Lymphocytes (%) (Auto) 18.6 % Monocytes (%) (Auto) 6.8 % Eosinophils (%) (Auto) 5.4 % Basophils (%) (Auto) 0.3 % Neutrophils # (Auto) 2.02 1.4-6.5 K/uL Lymphocytes # (Auto) 0.55 1.2-3.4 K/uL Monocytes # (Auto) 0.20 0.11-0.59 K/uL Eosinophils # (Auto) 0.16 0-0.5 K/uL Basophils # (Auto) 0.01 0-0.2 K/uL RDW Standard Deviation 52.8 51.8 36.4-46.3 fL RDW Coefficient of Variation 16.2 16.2 11.5-14.5 % Immature Granulocyte % (Auto) 0.3 % Immature Granulocyte # (Auto) 0.01 0.00-0.02 K/uL Platelet Estimate DECREASED Polychromasia 1+ Prothrombin Time 12.0 9.0-12.0 SECONDS Prothromb Time International Ratio 1.1 0.9-1.1 Activated Partial Thromboplast Time 31.6 21.0-31.0 SECONDS Partial Thromboplastin Ratio 1.2 Sodium Level 146 145 136-145 mmol/L Potassium Level 3.7 3.7 3.5-5.1 mmol/L Chloride Level 111 111 98-107 mmol/L Carbon Dioxide Level 23 25 21-32 mmol/L Anion Gap 12.0 9.0 3-11 mmol/L Blood Urea Nitrogen 20 19 7-18 mg/dl Creatinine 1.90 1.70 0.60-1.40 mg/dl Est Creatinine Clear Calc Drug Dose 33.7 37.6 ml/min Estimated GFR () 38.0 43.5 Estimated GFR (Non- 32.8 37.5 BUN/Creatinine Ratio 10.5 11.4 10-20 Random Glucose 109 123 70-99 mg/dl Calcium Level 8.0 8.2 8.5-10.1 mg/dl Total Bilirubin 0.7 0.2-1 mg/dl Direct Bilirubin 0.2 0-0.2 mg/dl Aspartate Amino Transf (AST/SGOT) 65 15-37 U/L Alanine Aminotransferase (ALT/SGPT) 39 12-78 U/L Alkaline Phosphatase 176 45-117 U/L Troponin I < 0.015 < 0.015 < 0.015 0-0.045 ng/ml Total Protein 6.9 6.4-8.2 gm/dl Albumin 3.0 3.4-5.0 gm/dl Lipase 202 73-393 U/L Urine Color YELLOW Urine Appearance CLEAR CLEAR Urine pH 6.5 4.5-7.5 Urine Specific [place] 1.013 1.000-1.030 Urine Protein NEG NEG Urine Glucose (UA) NEG NEG Urine Ketones NEG NEG Urine Occult Blood NEG NEG Urine Nitrite NEG NEG Urine Bilirubin NEG NEG Urine Urobilinogen NEG NEG Urine Leukocyte Esterase NEG NEG Magnesium Level 1.8 1.8-2.4 mg/dl Total Creatine Kinase 105 39-308 U/L Creatine Kinase MB 0.9 1.0 0.5-3.6 ng/ml Creatine Kinase MB Ratio 0.9 0-3.0 Thyroid Stimulating Hormone (TSH) 6.020 0.300-4.500 uIu/ml Test 05/10/16 10:30 05/10/16 14:51 Range/Units Total Creatine Kinase 97 39-308 U/L Creatine Kinase MB 0.8 0.5-3.6 ng/ml Creatine Kinase MB Ratio 0.8 0-3.0 Hemoglobin 8.9 14.0-18.0 g/dL Hematocrit 28.0 42-52 %
[2016-05-10] MEDS: ATORVASTATIN 40 MG TAB PO SCH (20:41)
[2016-05-10] MEDS: MAGNESIUM OXIDE 400 MG TAB PO SCH (21:30)
[2016-05-11] VITALS (15 sets, daily range): BP systolic 130–179; BP diastolic 71–85; PULSE 59–75; TEMP 36.6–37; O2SAT 94–97
[2016-05-11] MEDS: LEVOTHYROXINE 75 MCG TAB PO SCH (06:09)
[2016-05-11 06:21] LABS: HEMATOCRIT 26.2 % (42-52); MEAN CELL VOLUME 86.8 fL (80-100); MEAN CORPUSCULAR HEMOGLOBIN 27.5 pg (25-34); MEAN CORPUSCULAR HGB CONC 31.7 g/dl (32-36); RED BLOOD COUNT 3.02 M/uL (4.7-6.1); WHITE BLOOD COUNT 3.64 K/uL (4.8-10.8)
[2016-05-11 06:24] LABS: MEAN PLATELET VOLUME 11.1 fL (7.4-10.4); PLATELET COUNT 62 K/uL (130-400)
[2016-05-11 06:44] LABS: BASO % 0.5 %; BASO ABS # 0.02 K/uL (0-0.2); COMPLETE YES; IG% 0.3 %; LYMPH % 16.8 %; LYMPH ABS # 0.61 K/uL (1.2-3.4); MONO % 8.8 %; NEUT % 70.6 %; TEAR DROP CELLS 1+
[2016-05-11] MEDS: FERROUS SULFATE 325 MG TAB PO SCH ×2 (07:50→20:36)
[2016-05-11] MEDS: AMLODIPINE BESYLATE 5 MG TAB PO SCH (07:51)
[2016-05-11] MEDS: SODIUM BICARBONATE 650 MG TAB PO SCH ×2 (07:51→20:35)
[2016-05-11] MEDS: MAGNESIUM OXIDE 400 MG TAB PO SCH ×2 (07:51→20:34)
[2016-05-11] MEDS: TAMSULOSIN HCL 0.4 MG CAP PO SCH (07:51)
[2016-05-11] MEDS: CARVEDILOL 12.5 MG TAB PO SCH ×2 (07:52→20:36)
[2016-05-11] MEDS ORDERED: ALLOPURINOL 100 MG TAB PO SCH (09:00)
[2016-05-11] MEDS ORDERED: ACETAMINOPHEN 325 MG TAB PO SCH (11:00)
[2016-05-11] MEDS: PANTOprazole INJ 40 MG in SYRINGE 0 ML IV SCH (11:27)
[2016-05-11] MEDS ORDERED: FUROSEMIDE INJ 40 MG in SYRINGE 0 ML IV SCH (12:00)
[2016-05-11] MEDS: HydrALAZINE HCL 20 MG/ML VIAL IV. PRN (17:21)
--- NOTE | 2016-05-11 19:07 | Progress Note ---
Internal Med Progress Note Date of Service: May 11, 2016. Provider Documentation: SUBJECTIVE: resting comfortably s/p egd yesterday no signs of active bleeding tolerating diet no nausea or abdominal pain had bowel movement yesterday which was brown in color OBJECTIVE: Vital Signs-as noted below Exam: General-alert and oriented x 3 ENT-normal hearing Neck-no neck masses Lungs-cta b/l no wheezing or rhonchi Heart-s1 and s2 heard regular rate and rhythm, no murmurs Abdomen-soft bowel sounds present non tender no distension Extremities-no edema no erythema Neuro-alert and awake moves extremities Lab data as noted below. 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 Complicated by varices f/u as out patient CAD History of NSTEMI in October 2010 secondary to anemia asymptomatic on BB and statin CE negative Aspirin contraindicated HTN o amlodipine and coreg elevated hydralazine prn HYPOTHYROIDISM On levothyroxine 50 mcg daily- family states TSH was high at [place] today and they planned to increase to 75 mcg/ daily Check TSH in am and adjust as indicated CKD STAGE III Cr is 1.9 (baseline 1.7-1.8) cr 1.7 today at baseline Monitor renal function and avoid nephrotoxins PAROXYSMAL ATRIAL FIBRILLATION Rate controlled on beta nohemi Not on anticoagulation due to hx GIB/ anemia BPH on Flomax DVT PROPHYLAXIS SCD's due to GIB/ anemia/ thrombocytopenia CODE STATUS DNR per h and p DISPOSITION monitor in telemetry ambulate in hallway Lives independently at home possible d/c in am if stable Follows with Dr. Gooden for primary care Vital Signs: Date Time Temp Pulse Resp B/P Pulse Ox O2 Delivery O2 Flow Rate FiO2 05/11/16 16:30 166/74 05/11/16 16:00 96 Room Air 05/11/16 15:15 36.8 65 18 179/84 96 05/11/16 14:15 36.8 64 16 175/85 95 05/11/16 13:15 37.0 63 18 166/78 96 05/11/16 13:15 37.0 63 18 166/78 96 05/11/16 12:45 36.8 64 18 160/78 97 05/11/16 12:30 36.9 59 18 157/75 96 05/11/16 12:15 36.6 62 16 152/75 05/11/16 12:14 36.6 62 16 152/75 05/11/16 12:00 97 Room Air 05/11/16 11:39 36.6 66 16 170/80 97 Room Air 05/11/16 08:00 Room Air 05/11/16 07:56 36.6 68 18 161/81 97 Room Air 05/11/16 04:59 36.8 68 18 130/71 94 Room Air 05/11/16 04:00 Room Air 05/11/16 00:01 Room Air 05/10/16 23:05 36.9 66 18 155/74 95 Room Air 05/10/16 20:15 36.8 67 18 167/73 96 Room Air 05/10/16 20:00 Room Air Lab Results: Results Past 24 Hours Test 05/11/16 05:47 Range/Units White Blood Count 3.64 4.8-10.8 K/uL Red Blood Count 3.02 4.7-6.1 M/uL Hemoglobin 8.3 14.0-18.0 g/dL Hematocrit 26.2 42-52 % Mean Corpuscular Volume 86.8 80-100 fL Mean Corpuscular Hemoglobin 27.5 25-34 pg Mean Corpuscular Hemoglobin Concent 31.7 32-36 g/dl Platelet Count 62 130-400 K/uL Mean Platelet Volume 11.1 7.4-10.4 fL Neutrophils (%) (Auto) 70.6 % Lymphocytes (%) (Auto) 16.8 % Monocytes (%) (Auto) 8.8 % Eosinophils (%) (Auto) 3.0 % Basophils (%) (Auto) 0.5 % Neutrophils # (Auto) 2.57 1.4-6.5 K/uL Lymphocytes # (Auto) 0.61 1.2-3.4 K/uL Monocytes # (Auto) 0.32 0.11-0.59 K/uL Eosinophils # (Auto) 0.11 0-0.5 K/uL Basophils # (Auto) 0.02 0-0.2 K/uL RDW Standard Deviation 52.2 36.4-46.3 fL RDW Coefficient of Variation 16.2 11.5-14.5 % Immature Granulocyte % (Auto) 0.3 % Immature Granulocyte # (Auto) 0.01 0.00-0.02 K/uL Tear Drop Cells 1+
[2016-05-11] MEDS: ATORVASTATIN 40 MG TAB PO SCH (20:35)
[2016-05-11] MEDS: PANTOprazole SOD 40 MG TAB PO SCH (20:35)
[2016-05-12 03:56] VITALS: BP 127/70; PULSE 75; TEMP 36.7; O2SAT 97
[2016-05-12] MEDS: LEVOTHYROXINE 75 MCG TAB PO SCH (05:20)
[2016-05-12 06:48] LABS: HEMATOCRIT 31.7 % (42-52); MEAN CELL VOLUME 88.1 fL (80-100); MEAN CORPUSCULAR HEMOGLOBIN 28.3 pg (25-34); MEAN CORPUSCULAR HGB CONC 32.2 g/dl (32-36); WHITE BLOOD COUNT 4.38 K/uL (4.8-10.8)
[2016-05-12 07:22] LABS: BUN/CREATININE RATIO 12.1 (10-20); CALCIUM 8.5 mg/dl (8.5-10.1); CREATININE 1.9 mg/dl (0.60-1.40); POTASSIUM 3.6 mmol/L (3.5-5.1)
[2016-05-12 07:27] LABS: BASO % 0.5 %; BASO ABS # 0.02 K/uL (0-0.2); COMPLETE YES; IG% 0.2 %; LYMPH % 14.6 %; LYMPH ABS # 0.64 K/uL (1.2-3.4); MEAN PLATELET VOLUME 11.2 fL (7.4-10.4); MONO % 10.5 %; NEUT % 71.2 %; PLATELET COUNT 66 K/uL (130-400)
[2016-05-12 07:32] LABS: THYROID STIMULATING HORMONE 6.23 uIu/ml (0.300-4.500)
[2016-05-12 07:34] VITALS: BP 152/79; PULSE 63; TEMP 36.8; O2SAT 96
[2016-05-12] MEDS: TAMSULOSIN HCL 0.4 MG CAP PO SCH (08:34)
[2016-05-12] MEDS: MAGNESIUM OXIDE 400 MG TAB PO SCH (08:34)
[2016-05-12] MEDS: PANTOprazole SOD 40 MG TAB PO SCH (08:34)
[2016-05-12] MEDS: SODIUM BICARBONATE 650 MG TAB PO SCH (08:34)
[2016-05-12] MEDS: AMLODIPINE BESYLATE 5 MG TAB PO SCH (08:35)
[2016-05-12] MEDS: CARVEDILOL 12.5 MG TAB PO SCH (08:35)
[2016-05-12] MEDS: FERROUS SULFATE 325 MG TAB PO SCH (08:35)
--- NOTE | 2016-05-12 09:37 | Discharge Instructions ---
Discharge Instructions Admission Reason for Admission: Symptomatic Anemia Discharge Discharge Diagnosis / Problem: anemia Discharge Goals Goal(s): Decrease discomfort, Improve function Activity Recommendations Activity Limitations: resume your previous activity . Instructions / Follow-Up Instructions / Follow-Up FOLLOWUP WITH FAMILY DOCTOR Vilma Levy ON May AT 8:10AM. FOLLOWUP LABS PER FAMILY DOCTOR. Current Hospital Diet Patient's current hospital diet: Regular Diet, Low Sodium Diet (2gm Na) Discharge Diet Recommended Diet: Low Sodium Diet (2gm Na) Procedures Procedures Performed: EGD Pending Studies Studies pending at discharge: no Medical Emergencies . Who to Call and When: Medical Emergencies: If at any time you feel your situation is an emergency, please call 911 immediately. . Non-Emergent Contact Non-Emergency issues call your: Primary Care Provider . . "Provider Documentation" section prepared by Abhay Palencia. VTE Core Measure Inpt VTE Proph given/why not?: SCD's
[2016-05-12 10:44] VITALS: BP 152/79; PULSE 63; TEMP 36.8; O2SAT 96
--- NOTE | 2016-05-12 19:01 | Progress Note ---
Internal Med Progress Note Date of Service: May 12, 2016. Provider Documentation: SUBJECTIVE: resting comfortably normal bowel movement eating ok no sob or cough no nausea or abdominal pain ok to go home OBJECTIVE: Vital Signs-as noted below Exam: General-alert and oriented x 3 ENT-normal hearing Neck-no neck masses Lungs-cta b/l no wheezing or rhonchi Heart-s1 and s2 heard regular rate and rhythm, no murmurs Abdomen-soft bowel sounds present non tender no distension Extremities-no edema no erythema Neuro-alert and awake moves extremities Lab data as noted below. 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 Complicated by varices f/u as out patient CAD History of NSTEMI in October 2010 secondary to anemia asymptomatic on BB and statin CE negative Aspirin contraindicated HTN o amlodipine and coreg elevated hydralazine prn HYPOTHYROIDISM On levothyroxine 50 mcg daily- family states T[facility] was [facility] today and they planned to increase to 75 mcg/ daily Check TSH in am and adjust as indicated CKD STAGE III Cr is 1.9 (baseline 1.7-1.8) cr 1.9 today at baseline f/u with pcp PAROXYSMAL ATRIAL FIBRILLATION Rate controlled on beta nohemi Not on anticoagulation due to hx GIB/ anemia BPH on Flomax discharged home Vital Signs: Date Time Temp Pulse Resp B/P Pulse Ox O2 Delivery O2 Flow Rate FiO2 05/12/16 10:44 36.8 63 16 96 Room Air 05/12/16 08:00 Room Air 05/12/16 07:34 36.8 63 16 152/79 96 Room Air 05/12/16 04:00 Room Air 05/12/16 03:56 36.7 75 18 127/70 97 Room Air 05/12/16 00:01 Room Air 05/11/16 23:23 36.8 75 20 142/73 97 Room Air 05/11/16 20:00 Room Air 05/11/16 19:47 36.9 72 18 163/73 96 Room Air Lab Results: Results Past 24 Hours Test 05/12/16 06:33 Range/Units White Blood Count 4.38 4.8-10.8 K/uL Red Blood Count 3.60 4.7-6.1 M/uL Hemoglobin 10.2 14.0-18.0 g/dL Hematocrit 31.7 42-52 % Mean Corpuscular Volume 88.1 80-100 fL Mean Corpuscular Hemoglobin 28.3 25-34 pg Mean Corpuscular Hemoglobin Concent 32.2 32-36 g/dl Platelet Count 66 130-400 K/uL Mean Platelet Volume 11.2 7.4-10.4 fL Neutrophils (%) (Auto) 71.2 % Lymphocytes (%) (Auto) 14.6 % Monocytes (%) (Auto) 10.5 % Eosinophils (%) (Auto) 3.0 % Basophils (%) (Auto) 0.5 % Neutrophils # (Auto) 3.12 1.4-6.5 K/uL Lymphocytes # (Auto) 0.64 1.2-3.4 K/uL Monocytes # (Auto) 0.46 0.11-0.59 K/uL Eosinophils # (Auto) 0.13 0-0.5 K/uL Basophils # (Auto) 0.02 0-0.2 K/uL RDW Standard Deviation 51.2 36.4-46.3 fL RDW Coefficient of Variation 15.7 11.5-14.5 % Immature Granulocyte % (Auto) 0.2 % Immature Granulocyte # (Auto) 0.01 0.00-0.02 K/uL Sodium Level 143 136-145 mmol/L Potassium Level 3.6 3.5-5.1 mmol/L Chloride Level 108 98-107 mmol/L Carbon Dioxide Level 25 21-32 mmol/L Anion Gap 10.0 3-11 mmol/L Blood Urea Nitrogen 23 7-18 mg/dl Creatinine 1.90 0.60-1.40 mg/dl Est Creatinine Clear Calc Drug Dose 30.5 ml/min Estimated GFR () 38.0 Estimated GFR (Non- 32.8 BUN/Creatinine Ratio 12.1 10-20 Random Glucose 87 70-99 mg/dl Calcium Level 8.5 8.5-10.1 mg/dl Thyroid Stimulating Hormone (TSH) 6.230 0.300-4.500 uIu/ml Free Thyroxine 1.23 0.80-1.60 ng/dl
--- NOTE | 2016-05-12 19:03 | Discharge Summary ---
Discharge Summary Admission Date: May 09, 2016 at 20:59 Discharge Date: May 12, 2016 Discharge Disposition: Home Principal Diagnosis: anemia gi bleed? Secondary Diagnoses/Problems: (1) Anemia Status: Chronic (2) BPH (benign prostatic hypertrophy) Status: Chronic (3) Cirrhosis Status: Chronic (4) CKD (chronic kidney disease), stage III Status: Chronic (5) Dyslipidemia Status: Chronic (6) Esophageal varices Permanent Comment: Mar 2015- small varices, mild erosive antral gastritis Status: Chronic (7) GERD (gastroesophageal reflux disease) Status: Chronic (8) History of non-ST elevation myocardial infarction (NSTEMI) Permanent Comment: in October 2010 secondary to severe anemia Status: Chronic (9) Hypertension Status: Chronic (10) Hypothyroidism Status: Chronic (11) Liver disease Status: Chronic (12) NAFLD (nonalcoholic fatty liver disease) Status: Chronic (13) Paroxysmal atrial fibrillation Status: Chronic (14) Thrombocytopenia Status: Chronic Procedures: S/P EGD Consultations: GI Medication Reconciliation Continued Medications: Allopurinol (Zyloprim) 100 Mg Tab 100 MG PO Q2D, TAB Amlodipine (Norvasc) 2.5 Mg Tab 2.5 MG PO DAILY, TAB Atorvastatin (Lipitor) 80 Mg Tab 40 MG PO HS, TAB Carvedilol (Coreg) 25 Mg Tab 12.5 MG PO BID, TAB Ferrous Sulfate (Iron Supplement) 325 Mg Tab 1 TAB PO BID for 30 Days, #60 TAB 10 Refills Levothyroxine Sodium (Levothyroxine Sodium) 50 Mcg Tab 50 MCG PO QAM for 90 Days, #90 TAB 3 Refills Magnesium Oxide (Mg Supplement (Magnesium Oxide) 400 Mg Tab 1 TAB PO BID Omeprazole (Prilosec) 20 Mg Capcr 20 MG PO BID, CAP Sodium Bicarbonate (Sodium Bicarbonate) 650 Mg Tab 1 TAB PO BID Tamsulosin Hcl (Flomax) 0.4 Mg Cap 0.4 MG PO DAILY, CAP Admission Information HPI (per Admitting provider): This is a 81 y/o male with PMH of cirrhosis secondary to NAFLD complicated by nonbleeding varices, anemia, hx GI bleed, hx intestinal AVMs, anemia, history of NSTEMI in setting of severe anemia, PAF, and other problems listed below who was sent to the ED for abnormal hemoglobin on outpatient labs. Pt sees Dr. Gooden for primary care and Dr. Milian for GI. [facility] which showed Hg [facility] 7 and was instructed to come to ER. Pt states lately he has felt dizzy while ambulating, POWELL, and fatigued, similar to when he was anemic in the past. No dizziness or SOB while at rest. Last week he was ill with vomiting and diarrhea which resolved over the weekend. He did not notice any hematemesis or coffee ground emesis. Now having BM once a day. Stools are black in color "for a long time." Family notes he is on an iron pill. No BPRPR. No fevers, chills, URI symptoms, cough, chest pain, abdominal pain, bloating, jaundice, confusion, urinary change, hematuria, epistaxis, gum bleeding. Daughter states last transfusion was in summer. Last colonoscopy 12/01/15 showed polyp, AVMs s/p thermal therapy and clipped, diverticulosis, and hemorrhoids. Physical Exam (per Admitting): General Appearance: WD/WN, no apparent distress, + pertinent finding (alert cooperative elderly male, appears fatigued but comfortable, blood transfusing, daughters at bedside) Head: normocephalic, atraumatic Eyes: normal inspection, PERRL, EOMI ENT: hearing grossly normal, pharynx normal Neck: supple, trachea midline Respiratory/Chest: lungs clear, normal breath sounds, no respiratory distress, no accessory muscle use Cardiovascular: regular rate, rhythm, no murmur Abdomen/GI: normal bowel sounds, non tender, soft Extremities/Musculoskelatal: normal inspection, no calf tenderness, no pedal edema Neurologic/Psych: alert, normal mood/affect, oriented x 3, + pertinent finding (no gross focal deficit) Skin: normal color, warm/dry Physical Exam (per Admitting): General Appearance: WD/WN, no apparent distress, + pertinent finding (alert cooperative elderly male, appears fatigued but comfortable, blood transfusing, daughters at bedside) Head: normocephalic, atraumatic Eyes: normal inspection, PERRL, EOMI ENT: hearing grossly normal, pharynx normal Neck: supple, trachea midline Respiratory/Chest: lungs clear, normal breath sounds, no respiratory distress, no accessory muscle use Cardiovascular: regular rate, rhythm, no murmur Abdomen/GI: normal bowel sounds, non tender, soft Extremities/Musculoskelatal: normal inspection, no calf tenderness, no pedal edema Neurologic/Psych: alert, normal mood/affect, oriented x 3, + pertinent finding (no gross focal deficit) Skin: normal color, warm/dry Hospital Course SYMPTOMATIC ANEMIA Secondary to possible slow GI bleed Hemodynamically stable s/p two units of prbc transfusion s/p egd- grade 4 oesophageal varices but no active signs of bleeding continue Protonix started on diet and tolerating fine hb 8.3 05/11/16 s/p one more unit of prbc hb 10.2 today 05/12/16 CIRRHOSIS Due to NAFLD Complicated by varices f/u as out patient CAD History of NSTEMI in October 2010 secondary to anemia asymptomatic on BB and statin CE negative Aspirin contraindicated HTN o amlodipine and coreg elevated hydralazine prn HYPOTHYROIDISM On levothyroxine 50 mcg daily- family states TSH was high at [facility] today and they planned to increase to 75 mcg/ daily Check TSH in am and adjust as indicated CKD STAGE III Cr is 1.9 (baseline 1.7-1.8) cr 1.9 today at baseline f/u with pcp PAROXYSMAL ATRIAL FIBRILLATION Rate controlled on beta nohemi Not on anticoagulation due to hx GIB/ anemia BPH on Flomax discharged home Total time spent on discharge = 35MINUTES This includes examination of the patient, discharge planning, medication reconciliation, and communication with other providers. Discharge Instructions Please take this sheet to every appointment for the next month Discharge Instructions Admission Reason for Admission: Symptomatic Anemia Discharge Discharge Diagnosis / Problem: anemia Discharge Goals Goal(s): Decrease discomfort, Improve function Activity Recommendations Activity Limitations: resume your previous activity . Instructions / Follow-Up Instructions / Follow-Up FOLLOWUP WITH FAMILY DOCTOR Vilma Levy ON May AT 8:10AM. FOLLOWUP LABS PER FAMILY DOCTOR. Current Hospital Diet Patient's current hospital diet: Regular Diet, Low Sodium Diet (2gm Na) Discharge Diet Recommended Diet: Low Sodium Diet (2gm Na) Procedures Procedures Performed: EGD Pending Studies Studies pending at discharge: no Medical Emergencies . Who to Call and When: Medical Emergencies: If at any time you feel your situation is an emergency, please call 911 immediately. . Non-Emergent Contact Non-Emergency issues call your: Primary Care Provider . . "Provider Documentation" section prepared by Abhay P Palepu. VTE Core Measure Inpt VTE Proph given/why not?: SCD's
[2016-09-15] MEDS ORDERED: MAGN1TAB19 PO (11:54)
[2016-09-15] MEDS ORDERED: CARV25TA2 PO (11:54)
[2016-09-15] MEDS ORDERED: ATOR-26 PO (11:54)
[2016-09-15] MEDS ORDERED: ALLO100T PO (11:54)
[2016-09-15] MEDS ORDERED: SODI650T8 PO (11:54)
[2016-09-15] MEDS ORDERED: PRLSR20 PO (11:54)
[2016-09-15] MEDS ORDERED: TAMS0.4C38 PO (11:54)
[2016-09-15] MEDS ORDERED: AMLO2.5T PO (18:29)
[2016-09-23] MEDS ORDERED: TRAM-10 PO (13:53)
[2016-09-23] MEDS ORDERED: NRV5 PO (13:53)
[2016-10-03] MEDS ORDERED: HYDR-5688 PO (12:03)
[2016-10-03] MEDS ORDERED: ALBINS INH (12:03)
[2016-10-03] MEDS ORDERED: XFX550 PO (12:03)
[2017-01-29] MEDS ORDERED: AMLO2.5T PO (10:26)
[2017-01-29] MEDS ORDERED: FURO-85 PO (10:26)
[2017-01-29] MEDS ORDERED: CALC500C3 PO (10:26)
[2017-01-29] MEDS ORDERED: PRLSR20 PO (10:26)
== END 2016-05-12 12:25 | disposition home or self-care (01) | DRG 812 ==
LOC: ENRESERVTM → ENRESERVDT → C.EDB 17:48 → C.EDINP 20:59 → EDBEDREQ 21:46 → C.2T 05-10 13:49
PROVIDERS: ADMIT Family Medicine; ATTEND Internal Medicine
PROC: 0DJ08ZZ Inspection of Upper Intestinal Tract, Via Natural or Artificial Opening Endoscopic (ICD-10-PCS; principal; 2016-05-10 12:00)
DX: D64.9 Anemia, unspecified (principal); I85.00 Esophageal varices without bleeding; I48.0 Paroxysmal atrial fibrillation; N18.3 Chronic kidney disease, stage 3 (moderate); I25.10 Atherosclerotic heart disease of native coronary artery without angina pectoris; E03.9 Hypothyroidism, unspecified; D69.6 Thrombocytopenia, unspecified; N40.0 Benign prostatic hyperplasia without lower urinary tract symptoms; K74.60 Unspecified cirrhosis of liver; I25.2 Old myocardial infarction; Z66 Do not resuscitate; K21.9 Gastro-esophageal reflux disease without esophagitis; I12.9 Hypertensive chronic kidney disease with stage 1 through stage 4 chronic kidney disease, or unspecified chronic kidney disease; E78.5 Hyperlipidemia, unspecified; K29.70 Gastritis, unspecified, without bleeding; I44.0 Atrioventricular block, first degree; Z87.891 Personal history of nicotine dependence

== ENCOUNTER 2016-07-11 19:54 | Inpatient (IN) | payer OTHER ==
[2016-07-11] VITALS (7 sets, daily range): BP systolic 111–169; BP diastolic 63–84; PULSE 60–74; TEMP 36.6–37; O2SAT 96–99; Ht 172.7 cm; Wt 82.6 kg
[~2016-07-11] VITALS: Ht 172.7 cm; Wt 82.6 kg
[~2016-07-11 19:54] MED LIST changes: -CHOL1TAB42 PO; +LEVO50TA6 PO
[2016-07-11] MEDS ORDERED: SODIUM CHLORIDE 0.9% 1000ML 1,000 ML IV STA ×2 (20:17→20:18)
[2016-07-11] MEDS ORDERED: PANTOprazole INJ 80 MG in DEXTROSE 5% 100ML IV SCH (20:45)
[2016-07-11 20:57] LABS: INR 1.2 (0.9-1.1); PARTIAL THROMBOPLASTIN RATIO 1.1; PROTHROMBIN TIME (PATIENT) 12.6 SECONDS (9.0-12.0)
[2016-07-11] MEDS ORDERED: PANTOprazole INJ 40 MG in DEXTROSE 5% 100ML IV SCH (21:00)
[2016-07-11 21:07] LABS: HEMATOCRIT 20.9 % (42-52); MEAN CELL VOLUME 86.4 fL (80-100); MEAN CORPUSCULAR HEMOGLOBIN 28.1 pg (25-34); MEAN CORPUSCULAR HGB CONC 32.5 g/dl (32-36); PLATELET COUNT 84 K/uL (130-400); RED BLOOD COUNT 2.42 M/uL (4.7-6.1); WHITE BLOOD COUNT 5.06 K/uL (4.8-10.8)
[2016-07-11 21:08] LABS: BASO % 0.4 %; BASO ABS # 0.02 K/uL (0-0.2); COMPLETE YES; EOS % 2.6 %; HYPERSEGMENTED POLYS 1+; IG% 0.2 %; LYMPH % 13.4 %; LYMPH ABS # 0.68 K/uL (1.2-3.4); MONO % 6.1 %; NEUT % 77.3 %; POLYCHROMASIA 1+
[2016-07-11 21:10] LABS: BUN/CREATININE RATIO 27.4 (10-20); CALCIUM 8.3 mg/dl (8.5-10.1); CREATININE 1.7 mg/dl (0.60-1.40); POTASSIUM 3.9 mmol/L (3.5-5.1)
[2016-07-11 21:26] LABS: URINE APPEARANCE CLEAR (CLEAR); URINE BILIRUBIN NEG (NEG); URINE COLOR YELLOW; URINE NITRITE NEG (NEG); URINE SPECIFIC GRAVITY 1.016 (1.000-1.030); UROBILINOGEN NEG (NEG)
[2016-07-11 21:33] LABS: MANUAL MICROSCOPIC REQUIRED? NO; REVIEW REQ? NO
[2016-07-11] MEDS ORDERED: OCTREOTIDE IV BOLUS & DRIP IV STA (22:29)
[2016-07-11] MEDS ORDERED: ONDANSETRON INJ 2 MG/ML 2 ML VIAL IV PRN (22:30)
[2016-07-11] MEDS ORDERED: OCTREOTIDE ACETATE INJ 100 MCG in SYRINGE 9 ML IV STA (22:37)
--- NOTE | 2016-07-11 22:44 | History and Physical ---
History & Physical Date & Time of Service: Jul 11, 2016 at 22:25 Chief Complaint: Bright Red Stool Primary Care Physician: Vilma Gooden M.D. History of Present Illness Source: patient, family, clinic records, hospital records Patient seen and examined. 81 year old male with PMHx of GI bleed, AVMs, and esophageal varices, CKD stage 3, hypothyroidism, HTN, PAF, CARRIE, GALEANO cirrhosis and other problems listed below presents to the ED complaining of blood in the stool. x 3 days. History is somewhat unclear d/t forgetfulness but according to the patient's daughter he stated today that he was having 3 days of diarrhea with blood in it. There is inconsistencies of whether it was melena or bright red blood. Patient reports today he also had an episode of vomiting. He feels tired and a little SOB. He denies fevers, chills, URI symptoms, chest pain, nausea, dysuria, calf pain and edema. Patient had knee pain last week and has apparently been taking Advil for this. He is not on any other blood thinner or antiplatelets. He follows closely with Dr. Milian for a chronic GI bleed. workup has revealed esophageal varices and colon AVMs but no active bleeding has ever been seen. He is followed with monthly hgb checks and transfusions as needed. He was recently admitted in 05/21 and required 3 units PRBCs. EGD at that time was without overt bleeding. In the ED VS are stable, stool is heme positive. Hgb is 6.8. He received IVFs a protonix drip and has been typed and crossed for PRBCs. He will be admitted for further workup and treatment. Past Medical/Surgical History Medical Problems: (1) Anemia Status: Chronic (2) BPH (benign prostatic hypertrophy) Status: Chronic (3) Cirrhosis Status: Chronic (4) CKD (chronic kidney disease), stage III Status: Chronic (5) Dyslipidemia Status: Chronic (6) Esophageal varices Permanent Comment: Mar 2015- small varices, mild erosive antral gastritis Status: Chronic (7) GERD (gastroesophageal reflux disease) Status: Chronic (8) History of non-ST elevation myocardial infarction (NSTEMI) Permanent Comment: in October 2010 secondary to severe anemia Status: Chronic (9) Hypertension Status: Chronic (10) Hypothyroidism Status: Chronic (11) Liver disease Status: Chronic (12) NAFLD (nonalcoholic fatty liver disease) Status: Chronic (13) Paroxysmal atrial fibrillation Status: Chronic (14) Thrombocytopenia Status: Chronic Surgical Problems: (1) H/O colonoscopy Permanent Comment: 2010- adenomatous polyps; 11/2016- polyp, AVM's treated with thermal therapy and clipped, diverticulosis, hemorrhoids Status: Chronic (2) H/O esophagogastroduodenoscopy Permanent Comment: Mar 2015- small varices, mild erosive antral gastritis Status: Chronic Family History FH: CAD (coronary artery disease) FATHER Social History Smoking Status: Former Smoker Alcohol Use: none Marital Status: Housing status: lives alone Occupational Status: retired Immunizations History of Influenza Vaccine: No History of Tetanus Vaccine?: Unknown History of Pneumococcal: No History of Hepatitis B Vaccine: No Allergies Coded Allergies: Lisinopril (Verified Allergy, Unknown, UNKNOWN, 07/11/16) Home Medications Scheduled Allopurinol (Zyloprim), 100 MG PO Q2D Amlodipine (Norvasc), 2.5 MG PO DAILY Atorvastatin (Lipitor), 40 MG PO HS Carvedilol (Coreg), 12.5 MG PO DAILY AT NOON Ferrous Sulfate (Kp Ferrous Sulfate), 1 TAB PO BID Levothyroxine Sodium (Levothyroxine Sodium), 1 TAB PO QAM Magnesium Oxide (Mg Supplement (Magnesium Oxide), 1 TAB PO BID Omeprazole (Prilosec), 20 MG PO QAM Sodium Bicarbonate (Sodium Bicarbonate), 1 TAB PO DAILY AT NOON Tamsulosin Hcl (Flomax), 0.4 MG PO HS Review of Systems See above for pertinent positives & negatives. A total of 10 systems reviewed and were otherwise negative. Physical Exam Vital Signs Date Time Temp Pulse Resp B/P Pulse Ox O2 Delivery O2 Flow Rate FiO2 07/11/16 22:17 36.7 64 18 147/71 98 07/11/16 21:25 65 07/11/16 20:42 95 Room Air 07/11/16 19:58 36.5 61 20 91/53 96 Room Air General Appearance: + pertinent finding (Pleasant WD/WNn 81 year old male lying in bed in NAD with family at bedside ) Head: normocephalic, atraumatic Eyes: PERRL, EOMI, sclerae normal ENT: hearing grossly normal, pharynx normal Neck: supple, no JVD Respiratory/Chest: chest non-tender, lungs clear, normal breath sounds, no respiratory distress, no accessory muscle use Cardiovascular: regular rate, rhythm, no edema, no gallop, no JVD, no murmur, normal peripheral pulses Abdomen/GI: normal bowel sounds, non tender, soft Back: normal inspection, no muscle spasm Extremities/Musculoskelatal: no calf tenderness, normal capillary refill, no pedal edema, normal range of motion Neurologic/Psych: alert, oriented x 3, + pertinent finding (no focal deficts noted on gross exam ) Skin: normal color, warm/dry, no rash Lymphatic: no adenopathy Diagnostics Laboratory Results Results Past 24 Hours Test 07/11/16 20:32 07/11/16 21:10 Range/Units White Blood Count 5.06 4.8-10.8 K/uL Red Blood Count 2.42 4.7-6.1 M/uL Hemoglobin 6.8 14.0-18.0 g/dL Hematocrit 20.9 42-52 % Mean Corpuscular Volume 86.4 80-100 fL Mean Corpuscular Hemoglobin 28.1 25-34 pg Mean Corpuscular Hemoglobin Concent 32.5 32-36 g/dl Platelet Count 84 130-400 K/uL Mean Platelet Volume 10.0 7.4-10.4 fL Neutrophils (%) (Auto) 77.3 % Lymphocytes (%) (Auto) 13.4 % Monocytes (%) (Auto) 6.1 % Eosinophils (%) (Auto) 2.6 % Basophils (%) (Auto) 0.4 % Neutrophils # (Auto) 3.91 1.4-6.5 K/uL Lymphocytes # (Auto) 0.68 1.2-3.4 K/uL Monocytes # (Auto) 0.31 0.11-0.59 K/uL Eosinophils # (Auto) 0.13 0-0.5 K/uL Basophils # (Auto) 0.02 0-0.2 K/uL RDW Standard Deviation 56.5 36.4-46.3 fL RDW Coefficient of Variation 18.2 11.5-14.5 % Immature Granulocyte % (Auto) 0.2 % Immature Granulocyte # (Auto) 0.01 0.00-0.02 K/uL Hypersegmented Polys 1+ Polychromasia 1+ Prothrombin Time 12.6 9.0-12.0 SECONDS Prothromb Time International Ratio 1.2 0.9-1.1 Activated Partial Thromboplast Time 29.6 21.0-31.0 SECONDS Partial Thromboplastin Ratio 1.1 Sodium Level 144 136-145 mmol/L Potassium Level 3.9 3.5-5.1 mmol/L Chloride Level 111 98-107 mmol/L Carbon Dioxide Level 24 21-32 mmol/L Anion Gap 9.0 3-11 mmol/L Blood Urea Nitrogen 47 7-18 mg/dl Creatinine 1.70 0.60-1.40 mg/dl Est Creatinine Clear Calc Drug Dose 34.1 ml/min Estimated GFR () 43.5 Estimated GFR (Non- 37.5 BUN/Creatinine Ratio 27.4 10-20 Random Glucose 111 70-99 mg/dl Calcium Level 8.3 8.5-10.1 mg/dl Magnesium Level 2.0 1.8-2.4 mg/dl Total Bilirubin 1.0 0.2-1 mg/dl Direct Bilirubin 0.3 0-0.2 mg/dl Aspartate Amino Transf (AST/SGOT) 52 15-37 U/L Alanine Aminotransferase (ALT/SGPT) 27 12-78 U/L Alkaline Phosphatase 126 45-117 U/L Troponin I < 0.015 0-0.045 ng/ml Total Protein 6.9 6.4-8.2 gm/dl Albumin 2.9 3.4-5.0 gm/dl Lipase 92 73-393 U/L Urine Color YELLOW Urine Appearance CLEAR CLEAR Urine pH 5.0 4.5-7.5 Urine Specific [place] 1.016 1.000-1.030 Urine Protein NEG NEG Urine Glucose (UA) NEG NEG Urine Ketones NEG NEG Urine Occult Blood NEG NEG Urine Nitrite NEG NEG Urine Bilirubin NEG NEG Urine Urobilinogen NEG NEG Urine Leukocyte Esterase NEG NEG EKG 62 BPM Sinus Rhythm with 1st degree AV block, nonspecific ST and t wave changes , prolonged QTc 509 Impression Assessment and Plan 81 year old male with chronic GI bleed presents to the ED complaining of melena and BRBPR x 3 days GI BLEED -Admit to tele -upper versus lower GI bleed, reports melena and BRBPR has known esophageal varices and AVMs -Hgb 6.8 baseline 10, heme positive stool -Transfuse 2units PRBCs - consent on chart -Post transfusion H&H and then q6h, transfuse prn -Case discussed with Dr. Milian input appreciated -Protonix drip -Octreotide drip - Cefepime IV (cannot give CIpro due to prolonged QTc) -IVF hydration -NPO except meds -Check stool culture/c.diff -CBC, PRP, Mg daily PROLONGED QTc -check Mg -monitor in tele PAF -in SR -continue BB -not a candidate for anticoagulation d/t GI bleed CKD STAGE 3 -crea 1.7 which is near baseline -IVF hydration -avoid nephrotoxins -follow PRP HYPOTHYROIDISM -continue Synthroid CARRIE -continue iron supplementation GALEANO CIRRHOSIS CAD -H/O NSTEMI in setting of severe anemia -no chest pain -EKG unchanged, troponin negative -continue BB -monitor in tele HTN -stable -continue BB -hold amlodipine to avoid hypotension HLD -hold statin while npo BPH -continue Flomax DVT PROPHYLAXIS:SCDs RE: GI bleed CODE STATUS: LEVEL 5 DNR per my discussion with the patient DISPO:In my clinical judgment this beneficiary meets acute admission criteria, established by [facility], that includes being hospitalized through two midnights. Discharge planning eval Patient seen in collaboration with Dr. Zaidi ATTENDING ADDENDUM care coordinated with BURKE Tripp please refer to her notes for full details, I agree with her notes patient seen and examined, records reviewed by myself as well on exam, patient seen resting in bed, family at bedside states he feels somewhat improved compared to admission no abdominal pain, nausea on the time of my exam no other symptoms VS noted and reviewed oriented , not in distress, speaks in sentences with no effort nor accessory muscle use normal rate, regular rhythm, no murmurs clear breath sounds bilaterally non distended, soft, nontender no bipedal edema, erythema, warmth no neuro deficits Hg 6.8 Crea 1.7 ASSESSMENT/PLAN> 81 year old male with history of NAFLD with Esophageal Varices presenting with melena and Hg of 6.8 MELENA LIKELY UPPER GI BLEED ESOPHAGEAL VARICES, NAFLD - 2 units PRBC ordered repeat H&H - Protonix and Octreotide drip empiric Cefepime (cannot give Cipro as QTc is prolonged) - NPO until seen by GI DIARRHEA check stool cultures and C diff other diagnoses and plan of care as per BURKE Tripp's notes Manoj Zaidi MD VTE Prophylaxis VTE Risk Assessment Done? Y/N: Yes Risk Level: Moderate
[2016-07-11] MEDS ORDERED: OCTREOTIDE ACETATE INJ 500 MCG in NSS 100ML IV SCH (22:45)
[2016-07-11] MEDS ORDERED: DiphenhydrAMINE HCL 50 MG/ML VIAL ONE (22:53)
[2016-07-11] MEDS ORDERED: DiphenhydrAMINE HCL 50 MG/ML VIAL IV STA (22:58)
[2016-07-11] MEDS ORDERED: CEFEPIME CONSULT ACTIVE PRN ×2 (23:45)
[2016-07-12] VITALS (9 sets, daily range): BP systolic 149–163; BP diastolic 71–81; PULSE 56–67; TEMP 36.3–37; O2SAT 96–97
[2016-07-12] MEDS: SODIUM CHLORIDE 0.9% 1000ML 1,000 ML IV SCH ×2 (00:15→12:59)
--- NOTE | 2016-07-12 00:39 | EMERGENCY ROOM VISIT NOTE ---
History Report prepared by Meghan: Nona Abbasi Under the Supervision of: Dr. Baltazar Retana D.O. First contact with patient: 20:05 Chief Complaint: RECTAL BLEEDING Stated Complaint: BRIGHT RED STOOL Nursing Triage Summary: Patient was having a lot of left knee pain last week; taking advil for the pain. Patient has a history of a slow GI bleed that Dr. Milian is watching. Patient has had dark and bright red diarrhea for the last few days. History of Present Illness The patient is a 81 year old male who presents to the Emergency Room with complaints of persistent rectal bleeding that started two days ago. The patient states that he has been experiencing dark diarrhea with bright red blood throughout for the past two days. He states that he experiences 5 episodes of diarrhea a day. He is also experiencing back pain. The patient's daughter states that the stools looked similar to the stools that people experience from iron pills, which the patient is on. However, he reported bright red blood in the stools this morning. The patient denies any chest pain, shortness of breath , nausea, and vomiting. The patient denies any history of abdominal surgeries. The patient used to be on aspirin daily, but they stopped that. The patient's daughter states that his GI doctor thinks that the patient has AVMs in his intestine. He has received multiple endoscopes and colonoscopies. His most recent colonoscopy was in May. The patient is not on any blood thinners. The patient's daughter adds that the patient complained of an ache in the side of his knee last week that resolved. Source of History: patient, family (daughter) Onset: two days ago Position: other (rectum) Quality: other (rectal bleeding) Timing: other (persistent) Associated Symptoms: + back pain, No SOB, No chest pain, No nausea, No vomiting Review of Systems See HPI for pertinent positives & negatives. A total of 10 systems reviewed and were otherwise negative. Past Medical & Surgical Medical Problems: (1) Anemia (2) BPH (benign prostatic hypertrophy) (3) Cirrhosis (4) CKD (chronic kidney disease), stage III (5) Dyslipidemia (6) Esophageal varices (7) GERD (gastroesophageal reflux disease) (8) GI bleed (9) History of non-ST elevation myocardial infarction (NSTEMI) (10) Hypertension (11) Hypothyroidism (12) Liver disease (13) NAFLD (nonalcoholic fatty liver disease) (14) Paroxysmal atrial fibrillation (15) Symptomatic anemia (16) Thrombocytopenia Surgical Problems: (1) H/O colonoscopy (2) H/O esophagogastroduodenoscopy Family History FH: CAD (coronary artery disease) FATHER Social History Smoking Status: Unknown if Ever Smoked Alcohol Use: none Marital Status: Occupation Status: retired Current/Historical Medications Scheduled Allopurinol (Zyloprim), 100 MG PO Q2D Amlodipine (Norvasc), 2.5 MG PO DAILY Atorvastatin (Lipitor), 40 MG PO HS Carvedilol (Coreg), 12.5 MG PO DAILY AT NOON Ferrous Sulfate (Kp Ferrous Sulfate), 1 TAB PO BID Levothyroxine Sodium (Levothyroxine Sodium), 1 TAB PO QAM Magnesium Oxide (Mg Supplement (Magnesium Oxide), 1 TAB PO BID Omeprazole (Prilosec), 20 MG PO QAM Sodium Bicarbonate (Sodium Bicarbonate), 1 TAB PO DAILY AT NOON Tamsulosin Hcl (Flomax), 0.4 MG PO HS Allergies Coded Allergies: Lisinopril (Verified Allergy, Unknown, UNKNOWN, 07/11/16) Physical Exam Vital Signs Date Time Temp Pulse Resp B/P Pulse Ox O2 Delivery O2 Flow Rate FiO2 07/11/16 22:17 36.7 64 18 147/71 98 07/11/16 22:15 152/69 07/11/16 22:12 148/71 07/11/16 22:00 141/76 07/11/16 21:54 64 13 98 07/11/16 21:46 157/74 07/11/16 21:43 127/73 07/11/16 21:25 65 07/11/16 21:24 65 16 07/11/16 20:54 62 16 96 07/11/16 20:42 95 Room Air 07/11/16 20:39 129/74 07/11/16 19:58 36.5 61 20 91/53 96 Room Air Physical Exam GENERAL: alert, sitting up in bed, ill appearing, pale, lethargic, well nourished, no distress, non-toxic EYE EXAM: normal conjunctiva OROPHARYNX: no exudate, no erythema, lips, buccal mucosa, and tongue normal and mucous membranes are moist NECK: supple, no nuchal rigidity, no adenopathy, non-tender LUNGS: Clear to auscultation. Normal chest wall mechanics HEART: no murmurs, S1 normal and S2 normal ABDOMEN: abdomen soft, non-tender, normo-active bowel sounds, no masses, no rebound or guarding. BACK: Back is symmetrical on inspection and there is no deformity, no midline tenderness, no CVA tenderness. SKIN: no rashes and no bruising UPPER EXTREMITIES: upper extremities are grossly normal. LOWER EXTREMITIES: No pitting edema. RECTAL: No external hemorrhoids, heme positive stool. NEURO EXAM: Normal sensorium, cranial nerves II-XII grossly intact, normal speech, no gross weakness of arms, no gross weakness of legs. Medical Decision & Procedures Laboratory Results 07/11/16 20:32 Red Blood Count 2.42, Mean Corpuscular Volume 86.4, Mean Corpuscular Hemoglobin 28.1, Mean Corpuscular Hemoglobin Concent 32.5, Mean Platelet Volume 10.0, Neutrophils (%) (Auto) 77.3, Lymphocytes (%) (Auto) 13.4, Monocytes (%) (Auto) 6.1, Eosinophils (%) (Auto) 2.6, Basophils (%) (Auto) 0.4, Neutrophils # (Auto) 3.91, Lymphocytes # (Auto) 0.68, Monocytes # (Auto) 0.31, Eosinophils # (Auto) 0.13, Basophils # (Auto) 0.02 07/11/16 20:32 Test 07/11/16 20:32 07/11/16 21:10 White Blood Count 5.06 K/uL (4.8-10.8) Red Blood Count 2.42 M/uL (4.7-6.1) Hemoglobin 6.8 g/dL (14.0-18.0) Hematocrit 20.9 % (42-52) Mean Corpuscular Volume 86.4 fL (80-100) Mean Corpuscular Hemoglobin 28.1 pg (25-34) Mean Corpuscular Hemoglobin Concent 32.5 g/dl (32-36) Platelet Count 84 K/uL (130-400) Mean Platelet Volume 10.0 fL (7.4-10.4) Neutrophils (%) (Auto) 77.3 % Lymphocytes (%) (Auto) 13.4 % Monocytes (%) (Auto) 6.1 % Eosinophils (%) (Auto) 2.6 % Basophils (%) (Auto) 0.4 % Neutrophils # (Auto) 3.91 K/uL (1.4-6.5) Lymphocytes # (Auto) 0.68 K/uL (1.2-3.4) Monocytes # (Auto) 0.31 K/uL (0.11-0.59) Eosinophils # (Auto) 0.13 K/uL (0-0.5) Basophils # (Auto) 0.02 K/uL (0-0.2) RDW Standard Deviation 56.5 fL (36.4-46.3) RDW Coefficient of Variation 18.2 % (11.5-14.5) Immature Granulocyte % (Auto) 0.2 % Immature Granulocyte # (Auto) 0.01 K/uL (0.00-0.02) Hypersegmented Polys 1+ Polychromasia 1+ Prothrombin Time 12.6 SECONDS (9.0-12.0) Prothromb Time International Ratio 1.2 (0.9-1.1) Activated Partial Thromboplast Time 29.6 SECONDS (21.0-31.0) Partial Thromboplastin Ratio 1.1 Anion Gap 9.0 mmol/L (3-11) Est Creatinine Clear Calc Drug Dose 34.1 ml/min Estimated GFR () 43.5 Estimated GFR (Non- 37.5 BUN/Creatinine Ratio 27.4 (10-20) Calcium Level 8.3 mg/dl (8.5-10.1) Magnesium Level 2.0 mg/dl (1.8-2.4) Total Bilirubin 1.0 mg/dl (0.2-1) Direct Bilirubin 0.3 mg/dl (0-0.2) Aspartate Amino Transf (AST/SGOT) 52 U/L (15-37) Alanine Aminotransferase (ALT/SGPT) 27 U/L (12-78) Alkaline Phosphatase 126 U/L (45-117) Troponin I < 0.015 ng/ml (0-0.045) Total Protein 6.9 gm/dl (6.4-8.2) Albumin 2.9 gm/dl (3.4-5.0) Lipase 92 U/L (73-393) Urine Color YELLOW Urine Appearance CLEAR (CLEAR) Urine pH 5.0 (4.5-7.5) Urine Specific [place] 1.016 (1.000-1.030) Urine Protein NEG (NEG) Urine Glucose (UA) NEG (NEG) Urine Ketones NEG (NEG) Urine Nitrite NEG (NEG) Urine Bilirubin NEG (NEG) Urine Urobilinogen NEG (NEG) Urine Leukocyte Esterase NEG (NEG) Laboratory results per my review. Medications Administered Medications (Trade) Dose Ordered Sig/Med Route Start Time Stop Time Status Last Admin Dose Admin Sodium Chloride 1,000 ml @ 999 mls/hr Q1H1M STAT IV 07/11/16 20:17 07/11/16 21:17 DC 07/11/16 20:48 999 MLS/HR Pantoprazole Sodium 80 mg/ Dextrose 120 ml @ 480 mls/hr 2045 IV 07/11/16 20:45 07/11/16 20:59 DC 07/11/16 20:48 480 MLS/HR Pantoprazole Sodium/Dextrose (Protonix Inj/D5 100ml) 100 ml @ 20 mls/hr Q5H IV 07/11/16 21:00 07/12/16 01:59 07/11/16 20:48 20 MLS/HR ECG Indication: back/shoulder pain Rate (beats per minute): 62 Rhythm: sinus rhythm Findings: nonspecific-ST abn (Inferior), Q waves (Inferior), T-wave inversion ( Anterior) ED Course ED COURSE: Vital signs were reviewed and showed hypotension. The patients medical record was reviewed The above diagnostic studies were performed and reviewed. ED treatments and interventions as stated above. 2009: The patient was evaluated in room A2. A complete history and physical examination was performed. 2017: Ordered Sodium Chloride 1000 ml @ 999 mls/hr IV 2044: Ordered Pantoprazole Sodium 80 mg/Dextrose 120 ml @ 480 mls/hr IV 2054: I reassessed the patient. His blood pressure has come up into the 110s. 2099: Ordered Pantoprazole Sodium 40 mg/Dextrose 100 ml @ 20 mls/hr IV 2124: Upon reevaluation, the patient is resting comfortably. I discussed my findings with the patient and he understands and agrees with the treatment plan. Based on the patients age, coexisting illnesses, exam and lab findings the decision to treat as an inpatient was made. The patient remained stable while under my care. The patient will be evaluated for further management. 2133: I reviewed the patient's case with Unique Beltran. She will evaluate the patient for further management. 2257: The patient was receiving blood when his upper extremities became pruritic and erythematous. The patient has no respiratory complaints. The blood was stopped and Benadryl was given. Ordered Benadryl Inj 50 mg IV Medical Decision Differential diagnosis includes etiologies such as diverticulosis, AVM, coagulopathy, colitis, inflammatory bowel disease, malignancy, [place] tear, esophagitis, peptic ulcer disease, variceal bleed, gastritis, epistaxis, fissure, hemorrhoids, as well as others were entertained. Patient is a 81-year-old male who presents the ER for dark tarry stools which has been present for the past couple days. He does note feeling of diffuse weakness. He is pale and ill-appearing. Rectal is heme positive with melanotic stools. Hemoglobin was 6.8 down from 10. He was slightly tachycardic upon presentation. BMP shows creatinine 1.7. Lipase is unremarkable. IV was established and patient was given a bolus normal saline. Systolic blood pressure trended up from the 90s to 130s following a liter normal saline. Patient was typed and crossed initially. Following the result of his hemoglobin he was transfused. He is also given Protonix drip and bolus. Following the initiation of his initial transfusion he became itchy. He has mild erythema on his hands coming up to his arms. He had no respiratory or chest complaints. He was given 50 mg of Benadryl and blood was stopped. At this time he was are admitted to internal medicine but was still in the ER. He remained stable and shortly thereafter was taken to the floor. Consults Time Called: 2129 Consulting Physician: Unique Beltran Returned Call: 2133 I reviewed the patient's case with Unique Beltran. She will evaluate the patient for further management. Impression Primary Impression: GI bleed Additional Impression: Symptomatic anemia Scribe Attestation The scribe's documentation has been prepared under my direction and personally reviewed by me in its entirety. I confirm that the note above accurately reflects all work, treatment, procedures, and medical decision making performed by me. Departure Information Dispostion Being Evaluated By Hospitalist Referrals Vilma Gooden M.D. (PCP) Patient Instructions My [facility] Problem Qualifiers Primary Impression: GI bleed GI bleed type/associated pathology: unspecified gastrointestinal hemorrhage type Qualified Codes: K92.2 - Gastrointestinal hemorrhage, unspecified
[2016-07-12] MEDS ORDERED: CEFEPIME IV 2000 MG in DEXTROSE 5% 100ML IV SCH (01:00)
[2016-07-12] MEDS: PANTOprazole INJ 40 MG in DEXTROSE 5% 100ML IV SCH ×3 (01:22→10:47)
[2016-07-12 02:44] LABS: HEMATOCRIT 19.9 % (42-52)
[2016-07-12] MEDS: OCTREOTIDE ACETATE INJ 500 MCG in DEXTROSE 5% 100ML 100 ML IV SCH ×2 (04:20→14:38)
[2016-07-12] MEDS: LEVOTHYROXINE 75 MCG TAB PO SCH (06:12)
[2016-07-12] MEDS: MAGNESIUM OXIDE 400 MG TAB PO SCH ×2 (07:38→19:19)
[2016-07-12] MEDS: FERROUS SULFATE 325 MG TAB PO SCH ×2 (07:38→16:07)
[2016-07-12 08:21] LABS: HEMATOCRIT 23.1 % (42-52); MEAN CELL VOLUME 87.2 fL (80-100); MEAN CORPUSCULAR HEMOGLOBIN 28.7 pg (25-34); MEAN CORPUSCULAR HGB CONC 32.9 g/dl (32-36); RED BLOOD COUNT 2.65 M/uL (4.7-6.1); WHITE BLOOD COUNT 4.35 K/uL (4.8-10.8)
[2016-07-12 08:29] LABS: MEAN PLATELET VOLUME 9.6 fL (7.4-10.4); PLATELET COUNT 71 K/uL (130-400)
[2016-07-12 08:49] LABS: BUN/CREATININE RATIO 19.9 (10-20); CALCIUM 8.1 mg/dl (8.5-10.1); CREATININE 1.8 mg/dl (0.60-1.40); MAGNESIUM 2.1 mg/dl (1.8-2.4); POTASSIUM 3.9 mmol/L (3.5-5.1)
--- NOTE | 2016-07-12 10:59 | Gastrointestinal Consultation ---
Gastrointestinal Consultation Date of Consultation: Jul 12, 2016 Attending Physician: Gregory Vaughn Consulting Physician: Jeremías Shoemaker Reason for Consultation: Anemia History of Present Illness Patient is a 81 year old male w PMHx of NAFLD cirrhosis complicated by bleeding esophageal varices, GAVE, AVMs, CKD III, hypothyroidism, HTN, PAF, CARRIE, BPH, Dyslipidemia, hx of NSTEMI, hypothyroidism who presented to ED w c/o blood in stools. He is a poor historian, and confused, mostly oriented to self and time. Most of his hx was obtained from admission H&P and his daughter, Soila. Pt reports feeling tired and slightly SOB, also nausea, vomiting w dark emesis a few days ago. Soila also noted pt to be more confused/forgetful. She notes that pt had dark colored stools, somewhat like blood, not bright red. He denies any abd pain but stools are loose. He's been taking Advil at least 2 a day for knee pain. Upon eval in the ED, he was noted to be anemic w Hgb around 6.8 (baseline close to 10). His stools tested positive for heme. He had been transfused w 2U PRBC overnight w this AM's Hgb being 7.6. He's also been started on PPI bolus and gtt , Octreotide for possible esophageal varices bleed and Cefepime for SBP. He hasn 't had any more signs of GI bleed overnight. He's had a recent EGD on 05/10/[address] Milian during his recent admission for anemia - Grade II - III esophageal varices, GAVE. Varices not banded due to him being on beta nohemi w HR already in 50s, also the banding might possibly worsen his dysphagia. Last colonoscopy on 11/22/15 - TA polyp, AVM, diverticulosis, hemorrhoids. Past Medical/Surgical History Medical Problems: (1) Acute renal failure Status: Acute (2) GI bleed Status: Acute Past Medical History: See above Past Surgical History: None noted Family History FH: CAD (coronary artery disease) FATHER Social History Smoking Status: Unknown if Ever Smoked Alcohol Use: none Marital Status: Occupation Status: retired Allergies Coded Allergies: Lisinopril (Verified Allergy, Unknown, UNKNOWN, 07/11/16) Current Medications Home Meds and Scripts Medications Dose Route/Sig Max Daily Dose Days Date Category Levothyroxine Sodium 75 Mcg Tab 1 Tab PO QAM 90 07/11/16 Reported Kp Ferrous Sulfate (Ferrous Sulfate) 325 Mg Tab 1 Tab PO BID 30 07/11/16 Reported Norvasc (Amlodipine Besylate) 2.5 Mg Tab 2.5 Mg PO DAILY 05/09/16 Reported Prilosec (Omeprazole) 20 Mg Capcr 20 Mg PO QAM 11/22/15 Reported Coreg (Carvedilol) 25 Mg Tab 12.5 Mg PO DAILY AT NOON 11/22/15 Reported Lipitor (Atorvastatin Calcium) 80 Mg Tab 40 Mg PO HS 11/22/15 Reported Flomax (Tamsulosin Hcl) 0.4 Mg Cap 0.4 Mg PO HS 11/22/15 Reported Zyloprim (Allopurinol) 100 Mg Tab 100 Mg PO Q2D 11/22/15 Reported Magnesium Oxide (Magnesium Oxide (Mg Supplement) 400 Mg Tab 1 Tab PO BID 11/22/15 Reported Sodium Bicarbonate 650 Mg Tab 1 Tab PO DAILY AT NOON 11/22/15 Reported Review of Systems Constitutional: + fatigue, No chills, No fever Respiratory: + shortness of breath, No cough Cardiac: No chest pain Abdomen: + GI bleeding, + diarrhea, + nausea, + see HPI, + vomiting, No pain Physical Exam Date Time Temp Pulse Resp B/P Pulse Ox O2 Delivery O2 Flow Rate FiO2 07/12/16 08:00 Room Air 07/12/16 07:34 37.0 63 24 157/81 96 Room Air 07/12/16 06:15 36.7 56 20 163/71 96 07/12/16 05:14 36.7 63 20 158/80 96 07/12/16 04:14 37.0 62 20 162/76 96 07/12/16 04:00 Room Air 07/12/16 03:59 36.7 67 22 162/78 96 07/11/16 23:45 36.6 60 20 169/84 96 Room Air 07/11/16 23:30 74 16 146/96 99 07/11/16 22:54 36.6 74 20 111/82 98 07/11/16 22:45 36.6 67 16 134/63 97 07/11/16 22:30 144/77 07/11/16 22:30 37.0 70 16 144/77 99 07/11/16 22:28 139/68 07/11/16 22:26 139/68 07/11/16 22:25 37.0 62 16 139/68 99 07/11/16 22:24 64 18 98 07/11/16 22:20 37.0 64 16 152/69 99 07/11/16 22:17 36.7 64 18 147/71 98 07/11/16 22:15 152/69 07/11/16 22:12 148/71 07/11/16 22:00 141/76 07/11/16 21:54 64 13 98 07/11/16 21:46 157/74 07/11/16 21:43 127/73 07/11/16 21:25 65 07/11/16 21:24 65 16 07/11/16 20:54 62 16 96 07/11/16 20:42 95 Room Air 07/11/16 20:39 129/74 07/11/16 19:58 36.5 61 20 91/53 96 Room Air General Appearance: WD/WN, no apparent distress Eyes: normal inspection, PERRL, EOMI Neck: supple, no JVD, trachea midline Respiratory/Chest: no respiratory distress, no accessory muscle use, + decreased breath sounds Cardiovascular: regular rate, rhythm, no gallop, no murmur Abdomen: non tender, soft, + abnormal bowel sounds (hypoactive) Extremities: normal inspection, no pedal edema, no calf tenderness Neurologic/Psych: alert, normal mood/affect, + disoriented Skin: normal color, no jaundice, no rash Laboratory Results Last 24 Hours Test 07/11/16 20:32 07/11/16 21:10 07/12/16 01:30 07/12/16 02:20 White Blood Count 5.06 K/uL Red Blood Count 2.42 M/uL Hemoglobin 6.8 g/dL 6.5 g/dL Hematocrit 20.9 % 19.9 % Mean Corpuscular Volume 86.4 fL Mean Corpuscular Hemoglobin 28.1 pg Mean Corpuscular Hemoglobin Concent 32.5 g/dl Platelet Count 84 K/uL Mean Platelet Volume 10.0 fL Neutrophils (%) (Auto) 77.3 % Lymphocytes (%) (Auto) 13.4 % Monocytes (%) (Auto) 6.1 % Eosinophils (%) (Auto) 2.6 % Basophils (%) (Auto) 0.4 % Neutrophils # (Auto) 3.91 K/uL Lymphocytes # (Auto) 0.68 K/uL Monocytes # (Auto) 0.31 K/uL Eosinophils # (Auto) 0.13 K/uL Basophils # (Auto) 0.02 K/uL RDW Standard Deviation 56.5 fL RDW Coefficient of Variation 18.2 % Immature Granulocyte % (Auto) 0.2 % Immature Granulocyte # (Auto) 0.01 K/uL Hypersegmented Polys 1+ Polychromasia 1+ Prothrombin Time 12.6 SECONDS Prothromb Time International Ratio 1.2 Activated Partial Thromboplast Time 29.6 SECONDS Partial Thromboplastin Ratio 1.1 Sodium Level 144 mmol/L Potassium Level 3.9 mmol/L Chloride Level 111 mmol/L Carbon Dioxide Level 24 mmol/L Anion Gap 9.0 mmol/L Blood Urea Nitrogen 47 mg/dl Creatinine 1.70 mg/dl Est Creatinine Clear Calc Drug Dose 34.1 ml/min Estimated GFR () 43.5 Estimated GFR (Non- 37.5 BUN/Creatinine Ratio 27.4 Random Glucose 111 mg/dl Calcium Level 8.3 mg/dl Magnesium Level 2.0 mg/dl Total Bilirubin 1.0 mg/dl Direct Bilirubin 0.3 mg/dl Aspartate Amino Transf (AST/SGOT) 52 U/L Alanine Aminotransferase (ALT/SGPT) 27 U/L Alkaline Phosphatase 126 U/L Troponin I < 0.015 ng/ml Total Protein 6.9 gm/dl Albumin 2.9 gm/dl Lipase 92 U/L Urine Color YELLOW Urine Appearance CLEAR Urine pH 5.0 Urine Specific [place] 1.016 Urine Protein NEG Urine Glucose (UA) NEG Urine Ketones NEG Urine Occult Blood NEG NEG Urine Nitrite NEG Urine Bilirubin NEG Urine Urobilinogen NEG Urine Leukocyte Esterase NEG Test 07/12/16 08:10 White Blood Count 4.35 K/uL Red Blood Count 2.65 M/uL Hemoglobin 7.6 g/dL Hematocrit 23.1 % Mean Corpuscular Volume 87.2 fL Mean Corpuscular Hemoglobin 28.7 pg Mean Corpuscular Hemoglobin Concent 32.9 g/dl RDW Standard Deviation 57.2 fL RDW Coefficient of Variation 18.3 % Platelet Count 71 K/uL Mean Platelet Volume 9.6 fL Sodium Level 145 mmol/L Potassium Level 3.9 mmol/L Chloride Level 112 mmol/L Carbon Dioxide Level 19 mmol/L Anion Gap 14.0 mmol/L Blood Urea Nitrogen 36 mg/dl Creatinine 1.80 mg/dl Est Creatinine Clear Calc Drug Dose 32.2 ml/min Estimated GFR () 40.6 Estimated GFR (Non- 35.0 BUN/Creatinine Ratio 19.9 Random Glucose 96 mg/dl Calcium Level 8.1 mg/dl Magnesium Level 2.1 mg/dl Impression Patient is a 81 year old male w symptomatic anemia, reported to have loose dark stools which are heme positive, dark emesis. Hgb initially 6.8, treated w 2U PRBC transfusion, now 7.6. He has hx of NAFLD cirrhosis, w hx of esophageal varices bleeding s/p banding. Last EGD May 2016, GAVE, Grade II-III non bleeding esophageal varices. Last colonoscopy 11/2015 - AVM, polyps, diverticulosis, hemorrhoids. He's been taking Advil for knee pain for last few days. Plan - Keep NPO for EGD evaluation by Dr. Shoemaker this AM - Less likely has esophageal varices bleeding, if none can DC Octreotide, Cefepime - Keep PPI gtt, until EGD done. - Monitor H/H and transfuse prn - Avoid NSAIDs - Check stool cx and Cdiff for loose stools. ATTESTATION: I have performed a history and physical examination of this patient and reviewed the electronic record. Specifically, his EGD demonstrated gastric erosions that are the likely source of bleeding. Esophageal varices were also present. I have discussed the case with PHYLLIS Dumas. The above note reflects my findings, conclusions, and recommendations. Jeremías Shoemaker MD
--- NOTE | 2016-07-12 12:21 | GI REPORT ---
Procedure Date: 07/12/2016 11:44 AM Procedure: Upper GI endoscopy Indications: Acute post hemorrhagic anemia, Heme positive stool Medicines: Monitored Anesthesia Care Complications: No immediate complications. Estimated blood loss: None. Estimated Blood Loss: Estimated blood loss: none. Procedure: Pre-Anesthesia Assessment: - Prior to the procedure, a History and Physical was performed, and patient medications, allergies and sensitivities were reviewed. The patient's tolerance of previous anesthesia was reviewed. - ASA Grade Assessment: IV - A patient with severe systemic disease that is a constant threat to life. After obtaining informed consent, the endoscope was passed under direct vision. Throughout the procedure, the patient's blood pressure, pulse, and oxygen saturations were monitored continuously. The scope was introduced through the mouth, and advanced to the third part of duodenum. The upper GI endoscopy was accomplished with ease. The patient tolerated the procedure well. Findings: Grade II varices were found in the middle third of the esophagus and in the lower third of the esophagus. Multiple localized, small non-bleeding erosions were found in the gastric antrum. There were adherent fresh heme. The examined duodenum was normal. Impression: - Grade II esophageal varices. - Non-bleeding erosive gastropathy. - Normal examined duodenum. - No specimens collected. Recommendation: - Return patient to hospital st for ongoing care. Jeremías Shoemaker M.D. Jeremías Shoemaker MD 07/12/2016 12:20:27 PM This report has been signed electronically. Note Initiated On: 07/12/2016 11:44 AM I attest to the content of the Intraoperative Record and orders documented therein, exceptions below
--- NOTE | 2016-07-12 12:46 | Anesthesiology Progress Note ---
Anesthesia Post Op Note Date & Time Jul 12, 2016 at 12:47 Vital Signs Pain Intensity: 0 Vital Signs Past 12 Hours Date Time Temp Pulse Resp B/P Pulse Ox O2 Delivery O2 Flow Rate FiO2 07/12/16 12:45 67 16 175/81 95 Room Air 07/12/16 12:32 65 16 159/61 95 Room Air 07/12/16 12:17 60 16 121/60 97 Room Air 07/12/16 12:00 Room Air 07/12/16 11:48 36.9 61 20 149/72 96 Room Air 07/12/16 11:28 36.3 63 16 160/77 95 Room Air 07/12/16 11:15 37.0 63 24 157/81 96 Room Air 07/12/16 08:00 Room Air 07/12/16 07:34 37.0 63 24 157/81 96 Room Air 07/12/16 06:15 36.7 56 20 163/71 96 07/12/16 05:14 36.7 63 20 158/80 96 07/12/16 04:14 37.0 62 20 162/76 96 07/12/16 04:00 Room Air 07/12/16 03:59 36.7 67 22 162/78 96 Notes Mental Status: alert / awake / arousable, participated in evaluation Pt Amnestic to Procedure: Yes Nausea / Vomiting: adequately controlled Pain: adequately controlled Airway Patency, RR, SpO2: stable & adequate BP & HR: stable & adequate Hydration State: stable & adequate Anesthetic Complications: no major complications apparent
[2016-07-12] MEDS: SODIUM BICARBONATE 650 MG TAB PO SCH (12:58)
[2016-07-12] MEDS: CARVEDILOL 12.5 MG TAB PO SCH (12:58)
[2016-07-12 14:46] LABS: HEMATOCRIT 22.4 % (42-52)
--- NOTE | 2016-07-12 16:35 | Progress Note ---
Internal Med Progress Note Date of Service: Jul 12, 2016. Provider Documentation: SUBJECTIVE: Patient is lying in his bed in no apparent distress. Recently came back fro EGD. C/O Mild nausea but no vomiting. Denies any chest pain/pressure or SOB. OBJECTIVE: Vital Signs-as noted below Examination: General Appearance: Pleasant WD/WNn 81 year old male lying in bed in NAD with family at bedside. Head: normocephalic, atraumatic Eyes: PERRL, EOMI, sclerae normal ENT: hearing grossly normal, pharynx normal Neck: supple, no JVD Respiratory/Chest: chest non-tender, lungs clear, normal breath sounds, no respiratory distress, no accessory muscle use Cardiovascular: regular rate, rhythm, no edema, no gallop, no JVD, no murmur, normal peripheral pulses Abdomen/GI: normal bowel sounds, non tender, soft Back: normal inspection, no muscle spasm Extremities/Musculoskeletal: no calf tenderness, normal capillary refill, no pedal edema, normal range of motion Neurologic/Psych: alert, oriented x 3, no focal deficits noted on gross exam Skin: normal color, warm/dry, no rash Lymphatic: no adenopathy Lab data as noted below. ASSESSMENT & PLAN: EGD(07/12/2016) Findings: Grade II varices were found in the middle third of the esophagus and in the lower third of the esophagus. Multiple localized, small non-bleeding erosions were found in the gastric antrum. There were adherent fresh heme. The examined duodenum was normal. Impression: - Grade II esophageal varices. - Non-bleeding erosive gastropathy. - Normal examined duodenum. - No specimens collected. Recommendation: - Return patient to hospital st for ongoing care. GI Bleed: Clinically & hemodynamically stable now.has known history of Esophageal varices and AVMs. Admitted with Hgb 6.8 baseline 10, heme positive stool -Transfused 2units PRBCs -Monitoring H/H every 6 hourly -Reviewed GI consult. Thanks for input -Reviewed findings of EGD done today. -Continue Protonix -Started Liquid diet Prolonged QTc: Continue monitoring. -Avoid any agent which can affect QTc. -Check Mg Paroxysmal Atrial Fibrillation: In NSR and rate is controlled. -Continue B-nohemi -Not a candidate for anticoagulation d/t GI bleed CKD Stage III: Creatinine 1.7 which is near baseline -IVF hydration -Avoid nephrotoxins -Follow GFR Hypothyroidism: Continue Synthroid Iron Deficiency Anemia: Continue iron supplementation GALEANO Cirrhosis: Continue Coreg. CAD: History of STEMI. No acute cardiac symptoms now. -Troponin negative Hypertension: Stable. -Continue monitoring Hyperlipidemia: Holding Statin for now. History BPH: Continue Flomax DVT Prophylaxis:SCDs RE: GI bleed Code Status : Level 5 DNR per my discussion held at time of admission. Vital Signs: Date Time Temp Pulse Resp B/P Pulse Ox O2 Delivery O2 Flow Rate FiO2 07/12/16 15:38 Room Air 07/12/16 15:07 36.6 57 16 150/72 96 Room Air 07/12/16 12:45 67 16 175/81 95 Room Air 07/12/16 12:32 65 16 159/61 95 Room Air 07/12/16 12:17 60 16 121/60 97 Room Air 07/12/16 12:00 Room Air 07/12/16 11:48 36.9 61 20 149/72 96 Room Air 07/12/16 11:28 36.3 63 16 160/77 95 Room Air 07/12/16 11:15 37.0 63 24 157/81 96 Room Air 07/12/16 08:00 Room Air 07/12/16 07:34 37.0 63 24 157/81 96 Room Air 07/12/16 06:15 36.7 56 20 163/71 96 07/12/16 05:14 36.7 63 20 158/80 96 07/12/16 04:14 37.0 62 20 162/76 96 07/12/16 04:00 Room Air 07/12/16 03:59 36.7 67 22 162/78 96 07/11/16 23:45 36.6 60 20 169/84 96 Room Air 07/11/16 23:30 74 16 146/96 99 07/11/16 22:54 36.6 74 20 111/82 98 07/11/16 22:45 36.6 67 16 134/63 97 07/11/16 22:30 144/77 07/11/16 22:30 37.0 70 16 144/77 99 07/11/16 22:28 139/68 07/11/16 22:26 139/68 07/11/16 22:25 37.0 62 16 139/68 99 07/11/16 22:24 64 18 98 07/11/16 22:20 37.0 64 16 152/69 99 07/11/16 22:17 36.7 64 18 147/71 98 07/11/16 22:15 152/69 07/11/16 22:12 148/71 07/11/16 22:00 141/76 07/11/16 21:54 64 13 98 07/11/16 21:46 157/74 07/11/16 21:43 127/73 07/11/16 21:25 65 07/11/16 21:24 65 16 07/11/16 20:54 62 16 96 07/11/16 20:42 95 Room Air 07/11/16 20:39 129/74 07/11/16 19:58 36.5 61 20 91/53 96 Room Air Lab Results: Results Past 24 Hours Test 07/11/16 20:32 07/11/16 21:10 07/12/16 01:30 07/12/16 02:20 Range/Units White Blood Count 5.06 4.8-10.8 K/uL Red Blood Count 2.42 4.7-6.1 M/uL Hemoglobin 6.8 6.5 14.0-18.0 g/dL Hematocrit 20.9 19.9 42-52 % Mean Corpuscular Volume 86.4 80-100 fL Mean Corpuscular Hemoglobin 28.1 25-34 pg Mean Corpuscular Hemoglobin Concent 32.5 32-36 g/dl Platelet Count 84 130-400 K/uL Mean Platelet Volume 10.0 7.4-10.4 fL Neutrophils (%) (Auto) 77.3 % Lymphocytes (%) (Auto) 13.4 % Monocytes (%) (Auto) 6.1 % Eosinophils (%) (Auto) 2.6 % Basophils (%) (Auto) 0.4 % Neutrophils # (Auto) 3.91 1.4-6.5 K/uL Lymphocytes # (Auto) 0.68 1.2-3.4 K/uL Monocytes # (Auto) 0.31 0.11-0.59 K/uL Eosinophils # (Auto) 0.13 0-0.5 K/uL Basophils # (Auto) 0.02 0-0.2 K/uL RDW Standard Deviation 56.5 36.4-46.3 fL RDW Coefficient of Variation 18.2 11.5-14.5 % Immature Granulocyte % (Auto) 0.2 % Immature Granulocyte # (Auto) 0.01 0.00-0.02 K/uL Hypersegmented Polys 1+ Polychromasia 1+ Prothrombin Time 12.6 9.0-12.0 SECONDS Prothromb Time International Ratio 1.2 0.9-1.1 Activated Partial Thromboplast Time 29.6 21.0-31.0 SECONDS Partial Thromboplastin Ratio 1.1 Sodium Level 144 136-145 mmol/L Potassium Level 3.9 3.5-5.1 mmol/L Chloride Level 111 98-107 mmol/L Carbon Dioxide Level 24 21-32 mmol/L Anion Gap 9.0 3-11 mmol/L Blood Urea Nitrogen 47 7-18 mg/dl Creatinine 1.70 0.60-1.40 mg/dl Est Creatinine Clear Calc Drug Dose 34.1 ml/min Estimated GFR () 43.5 Estimated GFR (Non- 37.5 BUN/Creatinine Ratio 27.4 10-20 Random Glucose 111 70-99 mg/dl Calcium Level 8.3 8.5-10.1 mg/dl Magnesium Level 2.0 1.8-2.4 mg/dl Total Bilirubin 1.0 0.2-1 mg/dl Direct Bilirubin 0.3 0-0.2 mg/dl Aspartate Amino Transf (AST/SGOT) 52 15-37 U/L Alanine Aminotransferase (ALT/SGPT) 27 12-78 U/L Alkaline Phosphatase 126 45-117 U/L Troponin I < 0.015 0-0.045 ng/ml Total Protein 6.9 6.4-8.2 gm/dl Albumin 2.9 3.4-5.0 gm/dl Lipase 92 73-393 U/L Urine Color YELLOW Urine Appearance CLEAR CLEAR Urine pH 5.0 4.5-7.5 Urine Specific [place] 1.016 1.000-1.030 Urine Protein NEG NEG Urine Glucose (UA) NEG NEG Urine Ketones NEG NEG Urine Occult Blood NEG NEG NEG Urine Nitrite NEG NEG Urine Bilirubin NEG NEG Urine Urobilinogen NEG NEG Urine Leukocyte Esterase NEG NEG Test 07/12/16 08:10 07/12/16 14:34 Range/Units White Blood Count 4.35 4.8-10.8 K/uL Red Blood Count 2.65 4.7-6.1 M/uL Hemoglobin 7.6 7.2 14.0-18.0 g/dL Hematocrit 23.1 22.4 42-52 % Mean Corpuscular Volume 87.2 80-100 fL Mean Corpuscular Hemoglobin 28.7 25-34 pg Mean Corpuscular Hemoglobin Concent 32.9 32-36 g/dl RDW Standard Deviation 57.2 36.4-46.3 fL RDW Coefficient of Variation 18.3 11.5-14.5 % Platelet Count 71 130-400 K/uL Mean Platelet Volume 9.6 7.4-10.4 fL Sodium Level 145 136-145 mmol/L Potassium Level 3.9 3.5-5.1 mmol/L Chloride Level 112 98-107 mmol/L Carbon Dioxide Level 19 21-32 mmol/L Anion Gap 14.0 3-11 mmol/L Blood Urea Nitrogen 36 7-18 mg/dl Creatinine 1.80 0.60-1.40 mg/dl Est Creatinine Clear Calc Drug Dose 32.2 ml/min Estimated GFR () 40.6 Estimated GFR (Non- 35.0 BUN/Creatinine Ratio 19.9 10-20 Random Glucose 96 70-99 mg/dl Calcium Level 8.1 8.5-10.1 mg/dl Magnesium Level 2.1 1.8-2.4 mg/dl
[2016-07-12] MEDS: TAMSULOSIN HCL 0.4 MG CAP PO SCH (19:19)
[2016-07-12] MEDS: PANTOprazole INJ 40 MG in SYRINGE 0 ML IV SCH (19:20)
[2016-07-12 20:05] LABS: HEMATOCRIT 23.3 % (42-52)
[2016-07-13] VITALS (17 sets, daily range): BP systolic 126–175; BP diastolic 69–85; PULSE 61–68; TEMP 36.4–37; O2SAT 95–99
[2016-07-13] MEDS: SODIUM CHLORIDE 0.9% 1000ML 1,000 ML IV SCH (00:44)
[2016-07-13] MEDS: OCTREOTIDE ACETATE INJ 500 MCG in DEXTROSE 5% 100ML 100 ML IV SCH ×3 (00:44→22:38)
[2016-07-13] MEDS: LEVOTHYROXINE 75 MCG TAB PO SCH (06:20)
[2016-07-13 06:41] LABS: HEMATOCRIT 22.2 % (42-52); MEAN CELL VOLUME 85.7 fL (80-100); MEAN CORPUSCULAR HEMOGLOBIN 28.2 pg (25-34); MEAN CORPUSCULAR HGB CONC 32.9 g/dl (32-36); RED BLOOD COUNT 2.59 M/uL (4.7-6.1); WHITE BLOOD COUNT 3.39 K/uL (4.8-10.8)
[2016-07-13 06:43] LABS: MEAN PLATELET VOLUME 9.6 fL (7.4-10.4); PLATELET COUNT 69 K/uL (130-400)
[2016-07-13 06:48] LABS: INR 1.2 (0.9-1.1); PROTHROMBIN TIME (PATIENT) 12.9 SECONDS (9.0-12.0)
[2016-07-13 07:13] LABS: BUN/CREATININE RATIO 15.1 (10-20); CALCIUM 7.7 mg/dl (8.5-10.1); CREATININE 1.9 mg/dl (0.60-1.40); POTASSIUM 3.7 mmol/L (3.5-5.1)
[2016-07-13] MEDS: MAGNESIUM OXIDE 400 MG TAB PO SCH ×2 (07:42→20:26)
[2016-07-13] MEDS: PANTOprazole INJ 40 MG in SYRINGE 0 ML IV SCH ×2 (07:42→21:34)
[2016-07-13] MEDS: FERROUS SULFATE 325 MG TAB PO SCH ×2 (07:42→16:06)
[2016-07-13] MEDS ORDERED: ALLOPURINOL 100 MG TAB PO SCH (09:00)
[2016-07-13] MEDS ORDERED: IRON SUCROSE INJ 100 MG in SODIUM CHLORIDE 0.9% 100ML 100 ML IV SCH (10:00)
[2016-07-13] MEDS: SODIUM BICARBONATE 650 MG TAB PO SCH (12:00)
[2016-07-13] MEDS: CARVEDILOL 12.5 MG TAB PO SCH (12:00)
--- NOTE | 2016-07-13 15:19 | Progress Note ---
Progress Note Date of Service Jul 13, 2016. Progress Note No complaints today, events reviewed. Pt is comfortable. Abd soft. 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 - Would favor transfusion to goal hgb 8-9. D/w Dr. reagan. - D/c octreotide - OK for d/c home post x fusion -- thalia arrange for labs next week, and consider chronic periodic IV iron.
--- NOTE | 2016-07-13 15:53 | Progress Note ---
Internal Med Progress Note Date of Service: Jul 13, 2016. Provider Documentation: SUBJECTIVE: Patient is lying in his bed in no apparent distress. had EGD done on 2016. C/O Mild intermittent nausea but no vomiting. Denies any chest pain/pressure or SOB.Tolerating oral intake well so far. OBJECTIVE: Vital Signs-as noted below Examination: General Appearance: Pleasant WD/WNn 81 year old male lying in bed in NAD with family at bedside. Head: normocephalic, atraumatic Eyes: PERRL, EOMI, sclerae normal ENT: hearing grossly normal, pharynx normal Neck: supple, no JVD Respiratory/Chest: chest non-tender, lungs clear, normal breath sounds, no respiratory distress, no accessory muscle use Cardiovascular: regular rate, rhythm, no edema, no gallop, no JVD, no murmur, normal peripheral pulses Abdomen/GI: normal bowel sounds, non tender, soft Back: normal inspection, no muscle spasm Extremities/Musculoskeletal: no calf tenderness, normal capillary refill, no pedal edema, normal range of motion Neurologic/Psych: alert, oriented x 3, no focal deficits noted on gross exam Skin: normal color, warm/dry, no rash Lymphatic: no adenopathy Lab data as noted below. ASSESSMENT & PLAN: EGD(07/12/2016) Findings: Grade II varices were found in the middle third of the esophagus and in the lower third of the esophagus. Multiple localized, small non-bleeding erosions were found in the gastric antrum. There were adherent fresh heme. The examined duodenum was normal. Impression: - Grade II esophageal varices. - Non-bleeding erosive gastropathy. - Normal examined duodenum. - No specimens collected. Recommendation: - Return patient to hospital st for ongoing care. GI Bleed: Clinically & hemodynamically stable now.has known history of Esophageal varices and AVMs. Admitted with Hgb 6.8 baseline 10, heme positive stool -Will transfused 2units PRBCs -Reviewed GI consult. Thanks for input -Reviewed findings of EGD done on 07/12/2016. -Continue Protonix -Continue ADA diet. Prolonged QTc: Continue monitoring. -Avoid any agent which can affect QTc. -Check Mg Paroxysmal Atrial Fibrillation: In NSR and rate is controlled. -Continue B-nohemi -Not a candidate for anticoagulation d/t GI bleed CKD Stage III: Creatinine 1.7 which is near baseline -IVF hydration -Avoid nephrotoxins -Follow GFR Hypothyroidism: Continue Synthroid Iron Deficiency Anemia: Continue iron supplementation GALEANO Cirrhosis: Continue Coreg. CAD: History of STEMI. No acute cardiac symptoms now. -Troponin negative Hypertension: Stable. -Continue monitoring Hyperlipidemia: Holding Statin for now. History BPH: Continue Flomax DVT Prophylaxis:SCDs RE: GI bleed Code Status : Level 5 DNR per my discussion held at time of admission. Disposition: Potential discharge on 07/14/2016. Vital Signs: Date Time Temp Pulse Resp B/P Pulse Ox O2 Delivery O2 Flow Rate FiO2 07/13/16 15:22 36.4 67 18 126/69 98 Room Air 07/13/16 12:00 Room Air 07/13/16 11:48 37.0 63 16 166/77 96 Room Air 07/13/16 08:19 37.0 63 16 157/72 99 Room Air 07/13/16 08:00 Room Air 07/13/16 04:00 Room Air 07/13/16 03:48 36.7 68 18 152/81 95 Room Air 07/13/16 00:01 Room Air 07/13/16 00:00 36.6 64 18 166/78 95 Room Air 07/12/16 20:00 Room Air 07/12/16 19:18 36.3 57 20 159/71 97 Room Air Lab Results: Results Past 24 Hours Test 07/12/16 20:00 07/13/16 06:22 Range/Units Hemoglobin 7.6 7.3 14.0-18.0 g/dL Hematocrit 23.3 22.2 42-52 % White Blood Count 3.39 4.8-10.8 K/uL Red Blood Count 2.59 4.7-6.1 M/uL Mean Corpuscular Volume 85.7 80-100 fL Mean Corpuscular Hemoglobin 28.2 25-34 pg Mean Corpuscular Hemoglobin Concent 32.9 32-36 g/dl RDW Standard Deviation 55.8 36.4-46.3 fL RDW Coefficient of Variation 18.1 11.5-14.5 % Platelet Count 69 130-400 K/uL Mean Platelet Volume 9.6 7.4-10.4 fL Prothrombin Time 12.9 9.0-12.0 SECONDS Prothromb Time International Ratio 1.2 0.9-1.1 Sodium Level 143 136-145 mmol/L Potassium Level 3.7 3.5-5.1 mmol/L Chloride Level 109 98-107 mmol/L Carbon Dioxide Level 25 21-32 mmol/L Anion Gap 9.0 3-11 mmol/L Blood Urea Nitrogen 29 7-18 mg/dl Creatinine 1.90 0.60-1.40 mg/dl Est Creatinine Clear Calc Drug Dose 33.0 ml/min Estimated GFR () 38.0 Estimated GFR (Non- 32.8 BUN/Creatinine Ratio 15.1 10-20 Random Glucose 81 70-99 mg/dl Calcium Level 7.7 8.5-10.1 mg/dl Magnesium Level 2.0 1.8-2.4 mg/dl
[2016-07-13] MEDS ORDERED: NURSING VERBAL MED ORDER ONE (17:00)
[2016-07-13] MEDS: TAMSULOSIN HCL 0.4 MG CAP PO SCH (22:38)
[2016-07-14] VITALS: BP 174/79; PULSE 65; TEMP 36.8; O2SAT 95
[2016-07-14 00:45] VITALS: BP 178/85; PULSE 62; TEMP 36.7; O2SAT 97
[2016-07-14] MEDS: LEVOTHYROXINE 75 MCG TAB PO SCH (05:45)
[2016-07-14 06:45] LABS: HEMATOCRIT 26.1 % (42-52); MEAN CELL VOLUME 85.3 fL (80-100); MEAN CORPUSCULAR HEMOGLOBIN 28.4 pg (25-34); MEAN CORPUSCULAR HGB CONC 33.3 g/dl (32-36); RED BLOOD COUNT 3.06 M/uL (4.7-6.1); WHITE BLOOD COUNT 3.68 K/uL (4.8-10.8)
[2016-07-14 06:57] LABS: MEAN PLATELET VOLUME 9.2 fL (7.4-10.4); PLATELET COUNT 64 K/uL (130-400)
[2016-07-14 07:05] LABS: BASO % 0.3 %; BASO ABS # 0.01 K/uL (0-0.2); COMPLETE YES; EOS % 4.9 %; IG% 0.3 %; LYMPH % 17.7 %; LYMPH ABS # 0.65 K/uL (1.2-3.4); MONO % 8.2 %; NEUT % 68.6 %; POLYCHROMASIA 1+
[2016-07-14 07:15] LABS: BUN/CREATININE RATIO 15.9 (10-20); CALCIUM 7.7 mg/dl (8.5-10.1); CREATININE 1.6 mg/dl (0.60-1.40); POTASSIUM 3.6 mmol/L (3.5-5.1)
[2016-07-14 07:17] VITALS: BP 176/86; PULSE 60; TEMP 36.7; O2SAT 96
[2016-07-14] MEDS ORDERED: IRON SUCROSE INJ 100 MG in SODIUM CHLORIDE 0.9% 100ML 100 ML IV SCH (08:00)
[2016-07-14] MEDS: OCTREOTIDE ACETATE INJ 500 MCG in DEXTROSE 5% 100ML 100 ML IV SCH (08:21)
[2016-07-14] MEDS: MAGNESIUM OXIDE 400 MG TAB PO SCH (08:21)
[2016-07-14] MEDS: FERROUS SULFATE 325 MG TAB PO SCH (08:21)
[2016-07-14 09:15] VITALS: BP 157/74; PULSE 76; O2SAT 98
[2016-07-14] MEDS: PANTOprazole INJ 40 MG in SYRINGE 0 ML IV SCH (09:15)
--- NOTE | 2016-07-14 09:50 | Progress Note ---
Internal Med Progress Note Date of Service: Jul 14, 2016. Provider Documentation: SUBJECTIVE: Patient is lying in his bed in no apparent distress. had EGD done on 2016. Denies any nausea/vomiting or abdominal pain. Denies any chest pain/pressure or SOB.Tolerating oral intake well so far. OBJECTIVE: Vital Signs-as noted below Examination: General Appearance: Pleasant WD/WNn 81 year old male lying in bed in NAD with family at bedside. Head: normocephalic, atraumatic Eyes: PERRL, EOMI, sclerae normal ENT: hearing grossly normal, pharynx normal Neck: supple, no JVD Respiratory/Chest: chest non-tender, lungs clear, normal breath sounds, no respiratory distress, no accessory muscle use Cardiovascular: regular rate, rhythm, no edema, no gallop, no JVD, no murmur, normal peripheral pulses Abdomen/GI: normal bowel sounds, non tender, soft Back: normal inspection, no muscle spasm Extremities/Musculoskeletal: no calf tenderness, normal capillary refill, no pedal edema, normal range of motion Neurologic/Psych: alert, oriented x 3, no focal deficits noted on gross exam Skin: normal color, warm/dry, no rash Lymphatic: no adenopathy Lab data as noted below. ASSESSMENT & PLAN: EGD(07/12/2016) Findings: Grade II varices were found in the middle third of the esophagus and in the lower third of the esophagus. Multiple localized, small non-bleeding erosions were found in the gastric antrum. There were adherent fresh heme. The examined duodenum was normal. Impression: - Grade II esophageal varices. - Non-bleeding erosive gastropathy. - Normal examined duodenum. - No specimens collected. Recommendation: - Return patient to hospital st for ongoing care. GI Bleed: Clinically & hemodynamically stable now.has known history of Esophageal varices and AVMs. Admitted with Hgb 6.8 baseline 10, heme positive stool -Transfused total 4units PRBCs during hospitalization -Reviewed GI consult. Thanks for input -Reviewed findings of EGD done on 07/12/2016. -Continue Protonix -Continue ADA diet. Prolonged QTc: Continue monitoring. -Avoid any agent which can affect QTc. -Check Mg Paroxysmal Atrial Fibrillation: In NSR and rate is controlled. -Continue B-nohemi -Not a candidate for anticoagulation d/t GI bleed CKD Stage III: Creatinine 1.7 which is near baseline -IVF hydration -Avoid nephrotoxins -Follow GFR Hypothyroidism: Continue Synthroid Iron Deficiency Anemia: Continue iron supplementation GALEANO Cirrhosis: Continue Coreg. CAD: History of STEMI. No acute cardiac symptoms now. -Troponin negative Hypertension: Stable. -Continue monitoring Hyperlipidemia: Holding Statin for now. History BPH: Continue Flomax DVT Prophylaxis:SCDs RE: GI bleed Code Status : Level 5 DNR per my discussion held at time of admission. Disposition: Discharge home later today. Follow up with PCP within one week after discharge. Follow up with GI in 1-2 weeks as per their recommendations. Vital Signs: Date Time Temp Pulse Resp B/P Pulse Ox O2 Delivery O2 Flow Rate FiO2 07/14/16 09:15 76 98 07/14/16 07:17 36.7 60 22 176/86 96 Room Air 07/14/16 00:45 36.7 62 18 178/85 97 07/14/16 00:00 Room Air 07/14/16 00:00 36.8 65 18 174/79 95 07/13/16 23:30 36.6 63 18 172/84 96 07/13/16 23:00 36.8 63 18 175/85 96 07/13/16 22:56 36.8 61 18 165/81 96 Room Air 07/13/16 22:45 36.9 62 18 169/80 96 07/13/16 22:29 36.8 61 18 165/81 07/13/16 21:20 36.7 67 18 174/81 96 07/13/16 20:50 36.7 67 18 167/81 96 07/13/16 20:20 36.6 63 18 152/73 96 07/13/16 20:05 36.8 62 18 157/73 96 07/13/16 19:49 36.8 67 20 136/71 96 07/13/16 18:02 36.4 63 18 143/76 96 07/13/16 17:00 Room Air 07/13/16 16:35 36.4 67 18 98 07/13/16 16:00 Room Air 07/13/16 15:22 36.4 67 18 126/69 98 Room Air 07/13/16 12:00 Room Air 07/13/16 11:48 37.0 63 16 166/77 96 Room Air Lab Results: Results Past 24 Hours Test 07/14/16 06:32 Range/Units White Blood Count 3.68 4.8-10.8 K/uL Red Blood Count 3.06 4.7-6.1 M/uL Hemoglobin 8.7 14.0-18.0 g/dL Hematocrit 26.1 42-52 % Mean Corpuscular Volume 85.3 80-100 fL Mean Corpuscular Hemoglobin 28.4 25-34 pg Mean Corpuscular Hemoglobin Concent 33.3 32-36 g/dl Platelet Count 64 130-400 K/uL Mean Platelet Volume 9.2 7.4-10.4 fL Neutrophils (%) (Auto) 68.6 % Lymphocytes (%) (Auto) 17.7 % Monocytes (%) (Auto) 8.2 % Eosinophils (%) (Auto) 4.9 % Basophils (%) (Auto) 0.3 % Neutrophils # (Auto) 2.53 1.4-6.5 K/uL Lymphocytes # (Auto) 0.65 1.2-3.4 K/uL Monocytes # (Auto) 0.30 0.11-0.59 K/uL Eosinophils # (Auto) 0.18 0-0.5 K/uL Basophils # (Auto) 0.01 0-0.2 K/uL RDW Standard Deviation 52.8 36.4-46.3 fL RDW Coefficient of Variation 17.6 11.5-14.5 % Immature Granulocyte % (Auto) 0.3 % Immature Granulocyte # (Auto) 0.01 0.00-0.02 K/uL Polychromasia 1+ Sodium Level 142 136-145 mmol/L Potassium Level 3.6 3.5-5.1 mmol/L Chloride Level 108 98-107 mmol/L Carbon Dioxide Level 23 21-32 mmol/L Anion Gap 11.0 3-11 mmol/L Blood Urea Nitrogen 25 7-18 mg/dl Creatinine 1.60 0.60-1.40 mg/dl Est Creatinine Clear Calc Drug Dose 39.2 ml/min Estimated GFR () 46.8 Estimated GFR (Non- 40.4 BUN/Creatinine Ratio 15.9 10-20 Random Glucose 92 70-99 mg/dl Calcium Level 7.7 8.5-10.1 mg/dl
--- NOTE | 2016-07-14 09:55 | Discharge Instructions ---
Discharge Instructions Date of Service Jul 14, 2016. Admission Reason for Admission: Gi Bleed, Symptomatic Anemia Discharge Discharge Diagnosis / Problem: GI Bleed Discharge Goals Goal(s): Decrease discomfort, Improve function, Increase independence, Improve disease control, Improve nutritional status, Learn about illness, Diagnostic testing, Therapeutic intervention Activity Recommendations Activity Limitations: resume your previous activity ( Tolerated.) Lifting Limitations: no more than 5 pounds Exercise/Sports Limitations: as tolerated Shower/Bathe: no limitations Driving or Machine Use: No Driving . Instructions / Follow-Up Instructions / Follow-Up 1. Take all the mediations as directed. 2. Follow Salt and Fluid restriction 3. Avoid Fried, Spicy foods and caffeine products. Follow up with PCP within one week after discharge. Follow up with GI in 1-2 weeks as per their recommendations. Current Hospital Diet Patient's current hospital diet: AHA Diet (Heart Healthy) Discharge Diet Recommended Diet: AHA Diet (Heart Healthy) Fluid Restriction: 1800 ml (7 cups) Procedures Procedures Performed: EGD Pending Studies Studies pending at discharge: no Medical Emergencies . Who to Call and When: Medical Emergencies: If at any time you feel your situation is an emergency, please call 911 immediately. . Non-Emergent Contact Non-Emergency issues call your: Primary Care Provider, Cis Coordinator . . "Provider Documentation" section prepared by Gregory Vaughn. VTE Core Measure Inpt VTE Proph given/why not?: SCD's
--- NOTE | 2016-07-14 09:59 | Discharge Summary ---
Discharge Summary Date of Service Jul 14, 2016. Discharge Summary Admission Date: Jul 11, 2016 at 22:18 Discharge Date: Jul 14, 2016 Discharge Disposition: Home Principal Diagnosis: GI Bleed Melena Secondary Diagnoses/Problems: CKD Stage III Paroxysmal Atrial Fibrillation Iron Deficiency Anemia Hypothyroidism GALEANO Cirrhosis Hypertension History CAD Hyperlipidemia Procedures: EGD: Please see the findings below Vaccinations: NONE Consultations: Gastroenterology Pending Studies/Follow-Up: Follow up CBC in 3-5 days Medication Reconciliation Continued Medications: Allopurinol (Zyloprim) 100 Mg Tab 100 MG PO Q2D, TAB Amlodipine (Norvasc) 2.5 Mg Tab 2.5 MG PO DAILY, TAB Atorvastatin (Lipitor) 80 Mg Tab 40 MG PO HS, TAB Carvedilol (Coreg) 25 Mg Tab 12.5 MG PO DAILY AT NOON, TAB Ferrous Sulfate (Kp Ferrous Sulfate) 325 Mg Tab 1 TAB PO BID for 30 Days, #60 TAB 3 Refills Levothyroxine Sodium (Levothyroxine Sodium) 75 Mcg Tab 1 TAB PO QAM for 90 Days, #90 TAB 3 Refills Magnesium Oxide (Mg Supplement (Magnesium Oxide) 400 Mg Tab 1 TAB PO BID Omeprazole (Prilosec) 20 Mg Capcr 20 MG PO QAM, CAP Sodium Bicarbonate (Sodium Bicarbonate) 650 Mg Tab 1 TAB PO DAILY AT NOON Tamsulosin Hcl (Flomax) 0.4 Mg Cap 0.4 MG PO HS, CAP Admission Information HPI (per Admitting provider): Patient seen and examined. 81 year old male with PMHx of GI bleed, AVMs, and esophageal varices, CKD stage 3, hypothyroidism, HTN, PAF, CARRIE, GALEANO cirrhosis and other problems listed below presents to the ED complaining of blood in the stool. x 3 days. History is somewhat unclear d/t forgetfulness but according to the patient's daughter he stated today that he was having 3 days of diarrhea with blood in it. There is inconsistencies of whether it was melena or bright red blood. Patient reports today he also had an episode of vomiting. He feels tired and a little SOB. He denies fevers, chills, URI symptoms, chest pain, nausea, dysuria, calf pain and edema. Patient had knee pain last week and has apparently been taking Advil for this. He is not on any other blood thinner or antiplatelets. He follows closely with Dr. Milian for a chronic GI bleed. workup has revealed esophageal varices and colon AVMs but no active bleeding has ever been seen. He is followed with monthly hgb checks and transfusions as needed. He was recently admitted in 05/21 and required 3 units PRBCs. EGD at that time was without overt bleeding. In the ED VS are stable, stool is heme positive. Hgb is 6.8. He received IVFs a protonix drip and has been typed and crossed for PRBCs. He will be admitted for further workup and treatment. Physical Exam (per Admitting): General Appearance: + pertinent finding (Pleasant WD/WNn 81 year old male lying in bed in NAD with family at bedside ) Head: normocephalic, atraumatic Eyes: PERRL, EOMI, sclerae normal ENT: hearing grossly normal, pharynx normal Neck: supple, no JVD Respiratory/Chest: chest non-tender, lungs clear, normal breath sounds, no respiratory distress, no accessory muscle use Cardiovascular: regular rate, rhythm, no edema, no gallop, no JVD, no murmur , normal peripheral pulses Abdomen/GI: normal bowel sounds, non tender, soft Back: normal inspection, no muscle spasm Extremities/Musculoskelatal: no calf tenderness, normal capillary refill, no pedal edema, normal range of motion Neurologic/Psych: alert, oriented x 3, + pertinent finding (no focal deficts noted on gross exam ) Skin: normal color, warm/dry, no rash Lymphatic: no adenopathy Hospital Course EGD(07/12/2016) Findings: Grade II varices were found in the middle third of the esophagus and in the lower third of the esophagus. Multiple localized, small non-bleeding erosions were found in the gastric antrum. There were adherent fresh heme. The examined duodenum was normal. Impression: - Grade II esophageal varices. - Non-bleeding erosive gastropathy. - Normal examined duodenum. - No specimens collected. Recommendation: - Return patient to hospital st for ongoing care. GI Bleed: Clinically & hemodynamically stable now.has known history of Esophageal varices and AVMs. Admitted with Hgb 6.8 baseline 10, heme positive stool -Transfused total 4units PRBCs during hospitalization -Reviewed GI consult. Thanks for input -Reviewed findings of EGD done on 07/12/2016. -Continue Protonix -Continue ADA diet. Prolonged QTc: Continue monitoring. -Avoid any agent which can affect QTc. -Check Mg Paroxysmal Atrial Fibrillation: In NSR and rate is controlled. -Continue B-nohemi -Not a candidate for anticoagulation d/t GI bleed CKD Stage III: Creatinine 1.7 which is near baseline -IVF hydration -Avoid nephrotoxins -Follow GFR Hypothyroidism: Continue Synthroid Iron Deficiency Anemia: Continue iron supplementation GALEANO Cirrhosis: Continue Coreg. CAD: History of STEMI. No acute cardiac symptoms now. -Troponin negative Hypertension: Stable. -Continue monitoring Hyperlipidemia: Holding Statin for now. History BPH: Continue Flomax DVT Prophylaxis:SCDs RE: GI bleed Code Status : Level 5 DNR per my discussion held at time of admission. Disposition: Discharge home later today. Follow up with PCP within one week after discharge. Follow up with GI in 1-2 weeks as per their recommendations. Total time spent on discharge = 40 minutes. This includes examination of the patient, discharge planning, medication reconciliation, and communication with other providers. Discharge Instructions Discharge Goals Goal(s): Decrease discomfort, Improve function, Increase independence, Improve disease control, Improve nutritional status, Learn about illness, Diagnostic testing, Therapeutic intervention Activity Recommendations Activity Limitations: resume your previous activity ( Tolerated.) Lifting Limitations: no more than 5 pounds Exercise/Sports Limitations: as tolerated Shower/Bathe: no limitations Driving or Machine Use: No Driving . Instructions / Follow-Up Instructions / Follow-Up 1. Take all the mediations as directed. 2. Follow Salt and Fluid restriction 3. Avoid Fried, Spicy foods and caffeine products. Follow up with PCP within one week after discharge. Follow up with GI in 1-2 weeks as per their recommendations. Current Hospital Diet Patient's current hospital diet: AHA Diet (Heart Healthy) Additional Copies To Vilma Gooden M.D. Gaslightwala, Irphan E., M.D.
[2016-07-14 10:14] VITALS: BP 157/74; PULSE 76; TEMP 36.7; O2SAT 98
[2016-07-14] MEDS ORDERED: AMLODIPINE BESYLATE 5 MG TAB PO ONE (10:30)
[2016-07-14] MEDS: CARVEDILOL 12.5 MG TAB PO SCH (11:39)
[2016-07-14] MEDS: SODIUM BICARBONATE 650 MG TAB PO SCH (11:40)
[2016-09-15] MEDS ORDERED: ATOR-26 PO (11:54)
[2016-09-15] MEDS ORDERED: TAMS0.4C38 PO (11:54)
[2016-09-15] MEDS ORDERED: PRLSR20 PO (11:54)
[2016-09-15] MEDS ORDERED: ALLO100T PO (11:54)
[2016-09-15] MEDS ORDERED: SODI650T8 PO (11:54)
[2016-09-15] MEDS ORDERED: MAGN1TAB19 PO (11:54)
[2016-09-15] MEDS ORDERED: CARV25TA2 PO (11:54)
[2016-09-15] MEDS ORDERED: AMLO2.5T PO (18:29)
[2016-09-23] MEDS ORDERED: NRV5 PO (13:53)
[2016-09-23] MEDS ORDERED: TRAM-10 PO (13:53)
[2016-10-03] MEDS ORDERED: ALBINS INH (12:03)
[2016-10-03] MEDS ORDERED: XFX550 PO (12:03)
[2016-10-03] MEDS ORDERED: HYDR-5688 PO (12:03)
[2017-01-29] MEDS ORDERED: AMLO2.5T PO (10:26)
[2017-01-29] MEDS ORDERED: CALC500C3 PO (10:26)
[2017-01-29] MEDS ORDERED: PRLSR20 PO (10:26)
[2017-01-29] MEDS ORDERED: FURO-85 PO (10:26)
== END 2016-07-14 11:45 | disposition home or self-care (01) | DRG 379 ==
LOC: ENRESERVDT → ENRESERVTM → C.EDB 19:56 → C.2T 22:18 → C.MS4W 07-13 17:11
PROVIDERS: ADMIT Internal Medicine; ATTEND Emergency Medicine
PROC: 0DJ08ZZ Inspection of Upper Intestinal Tract, Via Natural or Artificial Opening Endoscopic (ICD-10-PCS; principal; 2016-07-12 11:23)
DX: K92.2 Gastrointestinal hemorrhage, unspecified (principal); I85.00 Esophageal varices without bleeding; N18.3 Chronic kidney disease, stage 3 (moderate); I12.9 Hypertensive chronic kidney disease with stage 1 through stage 4 chronic kidney disease, or unspecified chronic kidney disease; I48.0 Paroxysmal atrial fibrillation; D50.9 Iron deficiency anemia, unspecified; I25.10 Atherosclerotic heart disease of native coronary artery without angina pectoris; E78.5 Hyperlipidemia, unspecified; K74.69 Other cirrhosis of liver; Z66 Do not resuscitate; E03.9 Hypothyroidism, unspecified; I25.2 Old myocardial infarction; N40.0 Benign prostatic hyperplasia without lower urinary tract symptoms; K21.9 Gastro-esophageal reflux disease without esophagitis; K76.0 Fatty (change of) liver, not elsewhere classified; D69.6 Thrombocytopenia, unspecified; Z82.49 Family history of ischemic heart disease and other diseases of the circulatory system; Z79.899 Other long term (current) drug therapy; R19.7 Diarrhea, unspecified; Z87.891 Personal history of nicotine dependence

== ENCOUNTER 2016-08-27 10:06 | Inpatient (IN) | payer OTHER ==
[2016-08-27] VITALS (20 sets, daily range): BP systolic 136–166; BP diastolic 67–99; PULSE 64–98; TEMP 36.4–36.8; O2SAT 94–99; Ht 172.7 cm; Wt 73.3 kg
[~2016-08-27] VITALS: Ht 172.7 cm; Wt 73.3 kg
[2016-08-27] MEDS ORDERED: FAMOTIDINE 20MG/102 ML D5W IV STA (10:37)
[2016-08-27] MEDS ORDERED: PANTOprazole INJ 40 MG in SYRINGE 0 ML IV ONE (10:45)
--- NOTE | 2016-08-27 10:58 | EMERGENCY ROOM VISIT NOTE ---
History Report prepared by Meghan: Wilbert Coe Under the Supervision of: Dr. Jeremías Mcbride D.O. First contact with patient: 10:26 Chief Complaint: ABNORMAL LABS Stated Complaint: HEMOGLOBIN IS 6 History of Present Illness The patient is a 81 year old male who presents to the Emergency Room with complaints of persistent dark stools starting a few days ago. The patient started having persistent generalized weakness about a week ago. As per family member, the patient had diarrhea a few days ago. He had blood work last week which showed a hemoglobin of 8. He had blood work yesterday which showed hemoglobin of 6. His last blood transfusion was in July and he was discharged on July 14. The patient currently denies any pain. The patient denies fevers, chills, chest pain, shortness of breath, nausea, vomiting, abdominal pain, or any other complaints. Source of History: patient Onset: a few days ago Position: other (global) Symptom Intensity: No pain Quality: other (dark stools) Timing: other (persistent) Associated Symptoms: + weakness, No SOB, No abdominal pain, No chest pain, No chills, No fevers, No nausea, No vomiting Review of Systems See HPI for pertinent positives & negatives. A total of 10 systems reviewed and were otherwise negative. Past Medical & Surgical Medical Problems: (1) Anemia (2) BPH (benign prostatic hypertrophy) (3) Cirrhosis (4) CKD (chronic kidney disease), stage III (5) Dyslipidemia (6) Esophageal varices (7) GERD (gastroesophageal reflux disease) (8) History of non-ST elevation myocardial infarction (NSTEMI) (9) Hypertension (10) Hypothyroidism (11) Liver disease (12) NAFLD (nonalcoholic fatty liver disease) (13) Paroxysmal atrial fibrillation (14) Symptomatic anemia (15) Thrombocytopenia Surgical Problems: (1) H/O colonoscopy (2) H/O esophagogastroduodenoscopy Family History FH: CAD (coronary artery disease) FATHER Social History Smoking Status: Former Smoker Alcohol Use: none Marital Status: Occupation Status: retired Current/Historical Medications Scheduled Allopurinol (Zyloprim), 100 MG PO Q2D Amlodipine (Norvasc), 2.5 MG PO DAILY Atorvastatin (Lipitor), 40 MG PO HS Carvedilol (Coreg), 12.5 MG PO BID Ferrous Sulfate (Kp Ferrous Sulfate), 1 TAB PO BID Levothyroxine Sodium (Levothyroxine Sodium), 75 MCG PO QAM Magnesium Oxide (Mg Supplement (Magnesium Oxide), 400 TAB PO BID Omeprazole (Prilosec), 20 MG PO QAM Sodium Bicarbonate (Sodium Bicarbonate), 1 TAB PO DAILY AT NOON Tamsulosin Hcl (Flomax), 0.4 MG PO HS Allergies Coded Allergies: Lisinopril (Verified Allergy, Unknown, UNKNOWN, 07/11/16) Physical Exam Vital Signs Date Time Temp Pulse Resp B/P Pulse Ox O2 Delivery O2 Flow Rate FiO2 08/27/16 10:58 67 08/27/16 10:24 36.6 70 20 105/61 97 Room Air Physical Exam GENERAL: Patient is awake, alert, and in no acute distress. Patient is resting comfortably and showing no signs of anxiety EYES: The conjunctivae are clear. The pupils are round and reactive. EARS, NOSE, MOUTH AND THROAT: The nose is without any evidence of any deformity. Mucous membranes are moist tongue is midline NECK: The neck is nontender and supple. RESPIRATORY: Normal respiratory effort is noted there is no evidence of wheezing rhonchi or rales CARDIOVASCULAR: Regular rate and rhythm noted there no murmurs rubs or gallops normal S1 normal S2 GASTROINTESTINAL: The abdomen is soft. Bowel sounds are present in all quadrants. Abdomen is nontender. Rectal exam revealed melanotic stool which was strongly heme positive. MUSCULOSKELETAL/EXTREMITIES: There is no evidence of gross deformity full range of motion is noted in the hips and shoulders SKIN: There is no obvious evidence of any rash. There are no petechiae, pallor or cyanosis noted. Pedal edema bilaterally. NEUROLOGIC: Patient is awake alert and oriented x3 Medical Decision & Procedures ER Provider Diagnostic Interpretation: X-ray results as stated below per interpretation by me and the radiologist. CHEST ONE VIEW PORTABLE CLINICAL HISTORY: Pain, radiating to the abdomen. COMPARISON STUDY: 05/09/2016 FINDINGS: The heart remains mildly enlarged. There is no failure. There is no focal pulmonary consolidation. There are no pleural effusions.[ There is no free intraperitoneal air. IMPRESSION: Mild cardiomegaly. No acute findings. Electronically signed by: Umang Roberson M.D. 08/27/2016 11:50 AM Dictated Date/Time: 08/27/2016 11:50 AM Laboratory Results 08/27/16 10:58 Red Blood Count 2.24, Mean Corpuscular Volume 90.2, Mean Corpuscular Hemoglobin 28.1, Mean Corpuscular Hemoglobin Concent 31.2, Mean Platelet Volume 11.2, Neutrophils (%) (Auto) 69.2, Lymphocytes (%) (Auto) 20.1, Monocytes (%) (Auto) 6.9, Eosinophils (%) (Auto) 3.5, Basophils (%) (Auto) 0.3, Neutrophils # (Auto) 2.20, Lymphocytes # (Auto) 0.64, Monocytes # (Auto) 0.22, Eosinophils # (Auto) 0.11, Basophils # (Auto) 0.01 08/27/16 11:00 Test 08/27/16 10:58 08/27/16 11:00 08/27/16 11:04 White Blood Count 3.18 K/uL (4.8-10.8) Red Blood Count 2.24 M/uL (4.7-6.1) Hemoglobin 6.3 g/dL (14.0-18.0) Hematocrit 20.2 % (42-52) Mean Corpuscular Volume 90.2 fL (80-100) Mean Corpuscular Hemoglobin 28.1 pg (25-34) Mean Corpuscular Hemoglobin Concent 31.2 g/dl (32-36) Platelet Count 53 K/uL (130-400) Mean Platelet Volume 11.2 fL (7.4-10.4) Neutrophils (%) (Auto) 69.2 % Lymphocytes (%) (Auto) 20.1 % Monocytes (%) (Auto) 6.9 % Eosinophils (%) (Auto) 3.5 % Basophils (%) (Auto) 0.3 % Neutrophils # (Auto) 2.20 K/uL (1.4-6.5) Lymphocytes # (Auto) 0.64 K/uL (1.2-3.4) Monocytes # (Auto) 0.22 K/uL (0.11-0.59) Eosinophils # (Auto) 0.11 K/uL (0-0.5) Basophils # (Auto) 0.01 K/uL (0-0.2) RDW Standard Deviation 61.1 fL (36.4-46.3) RDW Coefficient of Variation 18.4 % (11.5-14.5) Immature Granulocyte % (Auto) 0.0 % Immature Granulocyte # (Auto) 0.00 K/uL (0.00-0.02) Platelet Estimate DECREASED Hypochromasia PRESENT Anisocytosis PRESENT Prothrombin Time 11.3 SECONDS (9.0-12.0) Prothromb Time International Ratio 1.1 (0.9-1.1) Activated Partial Thromboplast Time 28.0 SECONDS (21.0-31.0) Partial Thromboplastin Ratio 1.1 Anion Gap 6.0 mmol/L (3-11) Estimated GFR () 46.8 Estimated GFR (Non- 40.4 BUN/Creatinine Ratio 24.5 (10-20) Calcium Level 7.9 mg/dl (8.5-10.1) Magnesium Level 2.2 mg/dl (1.8-2.4) Total Bilirubin 0.7 mg/dl (0.2-1) Direct Bilirubin 0.2 mg/dl (0-0.2) Aspartate Amino Transf (AST/SGOT) 35 U/L (15-37) Alanine Aminotransferase (ALT/SGPT) 35 U/L (12-78) Alkaline Phosphatase 117 U/L (45-117) Total Protein 5.9 gm/dl (6.4-8.2) Albumin 2.6 gm/dl (3.4-5.0) Lipase 128 U/L (73-393) Urine Color YELLOW Urine Appearance CLEAR (CLEAR) Urine pH 6.0 (4.5-7.5) Urine Specific [place] 1.018 (1.000-1.030) Urine Protein NEG (NEG) Urine Glucose (UA) NEG (NEG) Urine Ketones NEG (NEG) Urine Occult Blood NEG (NEG) Urine Nitrite NEG (NEG) Urine Bilirubin NEG (NEG) Urine Urobilinogen NEG (NEG) Urine Leukocyte Esterase NEG (NEG) Laboratory results per my review. Medications Administered Medications (Trade) Dose Ordered Sig/Med Route Start Time Stop Time Status Last Admin Dose Admin Pantoprazole Sodium/Syringe (Protonix Inj/ Syringe) 10 ml @ 5 mls/min NOW ONCE IV 08/27/16 10:45 08/27/16 10:46 DC 08/27/16 11:25 5 MLS/MIN Famotidine (Pepcid 20mg/100 ml) 20 mg ONE STAT IV 08/27/16 10:37 08/27/16 10:38 DC 08/27/16 11:25 20 MG ED Course 1026: The patient was evaluated in room B08. A complete history and physical examination were performed. 1037: Famotidine 20 mg IV 1045: Pantoprazole Sodium 40 mg/Syringe 10 ml @ 5 mls/min IV 1048: Upon reevaluation, the patient is resting comfortably. I discussed results and treatment plan with the patient and her family. They verbalize agreement and understanding. I spoke with Ruby Monge PA-C of the [facility]. The patient will be evaluated for further management and care. 1059: The patient consented for blood. 1100: Benadryl Inj 25 mg IV Medical Decision Prior records/ancillary studies reviewed. Triage Nursing notes reviewed. Additional history obtained from the family. The patient's history was concerning for possible gastrointestinal bleeding. Differential diagnosis: Etiologies such as diverticulosis, AVM, coagulopathy, colitis, inflammatory bowel disease, malignancy, [place] tear, esophagitis, peptic ulcer disease , variceal bleed, gastritis, epistaxis, fissure, hemorrhoids, as well as others were entertained. The patient is a 81-year-old male who presented to the emergency department for an evaluation of anemia. The patient has a history of cryptic GI bleeding and has received intermittent blood transfusions in the past. He was in our facility recently last month for a similar complaint and at that time had an EGD which did not reveal a source of bleeding. The patient has been noticing generalized weakness. He also tells me today that he's been having melena per rectum. The patient's rectal exam revealed black stool which was strongly heme positive. The patient's had a drop in hemoglobin since the end of July. His hemoglobin today was significantly decreased. I discussed the patient's laboratory and radiographic studies with him and his family. I also discussed his case with the on-call [facility] hospitalist group. I ordered blood for the patient and also given Protonix and Zantac. He was reevaluated multiple times. He was also given Benadryl because his last blood transfusion was complicated with some urticarial reaction. Consults Time Called: 1036 Consulting Physician: Ruby Monge PA-C of the [facility] Returned Call: 1048 I spoke with Ruby Monge PA-C of the [facility] Group. Impression Primary Impression: Upper GI bleed Additional Impression: Severe anemia Scribe Attestation The scribe's documentation has been prepared under my direction and personally reviewed by me in its entirety. I confirm that the note above accurately reflects all work, treatment, procedures, and medical decision making performed by me. Departure Information Dispostion Being Evaluated By Hospitalist Referrals Vilma Gooden M.D. (PCP) Patient Instructions My [facility] Problem Qualifiers
[2016-08-27] MEDS ORDERED: DiphenhydrAMINE HCL 50 MG/ML VIAL IV STA (11:00)
[2016-08-27 11:20] LABS: URINE APPEARANCE CLEAR (CLEAR); URINE BILIRUBIN NEG (NEG); URINE COLOR YELLOW; URINE NITRITE NEG (NEG); URINE SPECIFIC GRAVITY 1.018 (1.000-1.030); UROBILINOGEN NEG (NEG)
[2016-08-27 11:21] LABS: MANUAL MICROSCOPIC REQUIRED? NO; REVIEW REQ? NO
[2016-08-27 11:22] LABS: HEMATOCRIT 20.2 % (42-52); MEAN CELL VOLUME 90.2 fL (80-100); MEAN CORPUSCULAR HEMOGLOBIN 28.1 pg (25-34); MEAN CORPUSCULAR HGB CONC 31.2 g/dl (32-36); MEAN PLATELET VOLUME 11.2 fL (7.4-10.4); PLATELET COUNT 53 K/uL (130-400); RED BLOOD COUNT 2.24 M/uL (4.7-6.1); WHITE BLOOD COUNT 3.18 K/uL (4.8-10.8)
[2016-08-27 11:31] LABS: INR 1.1 (0.9-1.1); PARTIAL THROMBOPLASTIN RATIO 1.1; PROTHROMBIN TIME (PATIENT) 11.3 SECONDS (9.0-12.0)
[2016-08-27 11:39] LABS: ANISOCYTOSIS PRESENT; BASO % 0.3 %; BASO ABS # 0.01 K/uL (0-0.2); COMPLETE YES; EOS % 3.5 %; HYPOCHROMIA PRESENT; LYMPH % 20.1 %; LYMPH ABS # 0.64 K/uL (1.2-3.4); MONO % 6.9 %; NEUT % 69.2 %; PLT ESTIMATE DECREASED
[2016-08-27 11:40] LABS: ALT/SGPT 35 U/L (12-78); AST/SGOT 35 U/L (15-37); BLOOD UREA NITROGEN 39 mg/dl (7-18); BUN/CREATININE RATIO 24.5 (10-20); CALCIUM 7.9 mg/dl (8.5-10.1); CARBON DIOXIDE 26 mmol/L (21-32); CHLORIDE 114 mmol/L (98-107); GLUCOSE 98 mg/dl (70-99); POTASSIUM 3.4 mmol/L (3.5-5.1); SODIUM 146 mmol/L (136-145)
[2016-08-27 11:43] LABS: ALKALINE PHOSPHATASE 117 U/L (45-117)
[2016-08-27] MEDS ORDERED: NITROGLYCERIN 0.4 MG SL PER TAB CHARGE SL PRN (11:45)
[2016-08-27] MEDS ORDERED: ACETAMINOPHEN 325 MG TAB PO PRN (11:45)
[2016-08-27] MEDS ORDERED: ONDANSETRON INJ 2 MG/ML 2 ML VIAL IV PRN (11:45)
--- NOTE | 2016-08-27 11:52 | DIAGNOSTIC IMAGING REPORT ---
CHEST ONE VIEW PORTABLE CLINICAL HISTORY: Pain, radiating to the abdomen. COMPARISON STUDY: 05/09/2016 FINDINGS: The heart remains mildly enlarged. There is no failure. There is no focal pulmonary consolidation. There are no pleural effusions.[ There is no free intraperitoneal air. IMPRESSION: Mild cardiomegaly. No acute findings. Electronically signed by: Umang Roberson M.D. 08/27/2016 11:50 AM Dictated Date/Time: 08/27/2016 11:50 AM
--- NOTE | 2016-08-27 11:59 | Progress Note ---
Progress Note Date of Service Aug 27, 2016. Progress Note Patient was seen and evaluated with GANGA Beltran. Patient comes in with dark tarry stools, generalized weakness. Had diarrhea 2 days ago and now better. No abdominal pain, fever, chills, nausea , vomiting. Chronic right knee pain + No changes in medications recently. Not taking NSAIDS. Exam: AAOX2, No distress, Pale + HEENT- Pallor + Neck- Supple Lungs- Clear, no wheezing, rhonchi, rales Heart-S1, S2 normal Abd- soft, non tender, non distended, bs present Labs Hb 6.3, WBC 3.18, Platelets 53, BMP pending- follow up A/P: 1. ACUTE ON CHRONIC ANEMIA (IRON DEFICIENCY), BLOOD LOSS: Patient is a known case of anemia with chronic GI blood loss with hx of GALEANO cirrhosis, Esophageal varices, Colon AVMs. Has required multiple blood transfusions outpatient and inpatient. Recent admission 07/19 for similar reason- was transfused 4 units PRBCS, Had EGD done=- Gd II varices were found in the middle third of the esophagus and in the lower third of the esophagus. Multiple localized, small non -bleeding erosions were found in the gastric antrum. There were adherent fresh heme. The examined duodenum was normal. -Presented with Hb 6.3, Diarrhea 2 days ago has resolved. FOBT +ve -Will transfuse 2 units PRBCs -Continue with Protonix BID -Consult GI if would want to do a colonoscopy (last one was in 11/2016). However , this is a chronic ongoing issue- need to have a better outpatient system so can get transfusions arranged for outpatient 2. 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 Hx of A fib -Stable, not on any anticoagulation due to GI Bleeding 4. CKD-3 5. Hx of CAD 6. GALEANO Cirrhosis 6. Hypertension 7. Hyperlipidemia 8. DVT prophylaxis- SCDS re gi bleeding 9. BPH- on flomax DNR/DNI per daughter/patient
--- NOTE | 2016-08-27 12:32 | History and Physical ---
History & Physical Date & Time of Service: Aug 27, 2016 at 11:50 Chief Complaint: Hemoglobin Is 6 Primary Care Physician: Vilma Gooden M.D. History of Present Illness Source: patient This is a 81 y/o male with PMHx of GALEANO Cirrhosis, Esophageal Varices, CKD stage 3, PAF, HTN, Dyslipidemia and other problems as outlined below who presents to the ED c/o recurrent melena for 1 week. Pt has a long history of iron deficiency anemia requiring periodic transfusions. Pt was admitted last month with a anemia/melena. EGD showed non-bleeding grade II esophageal varices. He received a total of 4 units pRBCs and was discharged home with GI followup ([facility]). Since discharge, patient was having intermittent black stools however for the past week his stool has been consistently black and tarry. Sxs are assoc with generalized weakness/fatigue and some diarrhea yesterday. Outpatient bloodwork done yesterday showed HgB 6.4 and patient was directed to the ED. Pt is not on any anticoagulation and he does not use NSAIDs. Pt denies fever/chills, diaphoresis, chest pain, palpitations, SOB, abd pain, N/V, bladder issues, LE edema ,calf pain, lightheadedness/dizziness. In the ED, vitals are stable. HgB 6.3. plt count 53. Pt is hemodynamically stable and will be admitted for further evaluation and treatment. Past Medical/Surgical History Medical Problems: (1) Anemia Status: Chronic (2) BPH (benign prostatic hypertrophy) Status: Chronic (3) Cirrhosis Status: Chronic (4) CKD (chronic kidney disease), stage III Status: Chronic (5) Dyslipidemia Status: Chronic (6) Esophageal varices Permanent Comment: Mar 2015- small varices, mild erosive antral gastritis Status: Chronic (7) GERD (gastroesophageal reflux disease) Status: Chronic (8) History of non-ST elevation myocardial infarction (NSTEMI) Permanent Comment: in October 2010 secondary to severe anemia Status: Chronic (9) Hypertension Status: Chronic (10) Hypothyroidism Status: Chronic (11) Liver disease Status: Chronic (12) NAFLD (nonalcoholic fatty liver disease) Status: Chronic (13) Paroxysmal atrial fibrillation Status: Chronic (14) Thrombocytopenia Status: Chronic Surgical Problems: (1) H/O colonoscopy Permanent Comment: 2010- adenomatous polyps; 11/2016- polyp, AVM's treated with thermal therapy and clipped, diverticulosis, hemorrhoids Status: Chronic (2) H/O esophagogastroduodenoscopy Permanent Comment: Mar 2015- small varices, mild erosive antral gastritis Status: Chronic Family History FH: CAD (coronary artery disease) FATHER Social History Smoking Status: Former Smoker Alcohol Use: none Drug Use: none Marital Status: Housing status: lives alone Occupational Status: retired Immunizations History of Influenza Vaccine: No History of Tetanus Vaccine?: Unknown History of Pneumococcal: No History of Hepatitis B Vaccine: No Allergies Coded Allergies: Lisinopril (Verified Allergy, Unknown, UNKNOWN, 07/11/16) Home Medications Scheduled Allopurinol (Zyloprim), 100 MG PO Q2D Amlodipine (Norvasc), 2.5 MG PO DAILY Atorvastatin (Lipitor), 40 MG PO HS Carvedilol (Coreg), 12.5 MG PO BID Ferrous Sulfate (Kp Ferrous Sulfate), 1 TAB PO BID Levothyroxine Sodium (Levothyroxine Sodium), 75 MCG PO QAM Magnesium Oxide (Mg Supplement (Magnesium Oxide), 400 TAB PO BID Omeprazole (Prilosec), 20 MG PO QAM Sodium Bicarbonate (Sodium Bicarbonate), 1 TAB PO DAILY AT NOON Tamsulosin Hcl (Flomax), 0.4 MG PO HS Review of Systems Constitutional: + fatigue, + weakness, No chills, No fever, No sweats Eyes: No worsening of vision ENT: No hearing loss Respiratory: No cough, No shortness of breath Cardiovascular: No chest pain, No claudication, No edema Abdomen: + GI bleeding, + diarrhea, No constipation, No nausea, No pain, No vomiting Musculoskeletal: No calf pain, No swelling Genitourinary - Male: No dysuria Neurologic: + weakness Psychiatric: No depression symptoms Endocrine: + fatigue Hematologic / Lymphatic: + abnormal bleeding/bruising (see above) Integumentary: No new/changing skin lesions Physical Exam Vital Signs Date Time Temp Pulse Resp B/P Pulse Ox O2 Delivery O2 Flow Rate FiO2 08/27/16 10:58 67 08/27/16 10:24 36.6 70 20 105/61 97 Room Air General Appearance: WD/WN, no apparent distress, + pertinent finding (Pt is laying in bed with daughter at bedside) Head: normocephalic, atraumatic Eyes: normal inspection ENT: hearing grossly normal Neck: supple Respiratory/Chest: chest non-tender, lungs clear, normal breath sounds, no respiratory distress Cardiovascular: regular rate, rhythm, no edema, no murmur Abdomen/GI: normal bowel sounds, non tender, soft Back: normal inspection Extremities/Musculoskelatal: normal inspection, no calf tenderness, no pedal edema Neurologic/Psych: alert, normal mood/affect, oriented x 3 Skin: + pallor Diagnostics Laboratory Results Results Past 24 Hours Test 08/27/16 10:58 08/27/16 11:00 08/27/16 11:04 08/27/16 11:46 Range/Units White Blood Count 3.18 4.8-10.8 K/uL Red Blood Count 2.24 4.7-6.1 M/uL Hemoglobin 6.3 14.0-18.0 g/dL Hematocrit 20.2 42-52 % Mean Corpuscular Volume 90.2 80-100 fL Mean Corpuscular Hemoglobin 28.1 25-34 pg Mean Corpuscular Hemoglobin Concent 31.2 32-36 g/dl Platelet Count 53 130-400 K/uL Mean Platelet Volume 11.2 7.4-10.4 fL Neutrophils (%) (Auto) 69.2 % Lymphocytes (%) (Auto) 20.1 % Monocytes (%) (Auto) 6.9 % Eosinophils (%) (Auto) 3.5 % Basophils (%) (Auto) 0.3 % Neutrophils # (Auto) 2.20 1.4-6.5 K/uL Lymphocytes # (Auto) 0.64 1.2-3.4 K/uL Monocytes # (Auto) 0.22 0.11-0.59 K/uL Eosinophils # (Auto) 0.11 0-0.5 K/uL Basophils # (Auto) 0.01 0-0.2 K/uL RDW Standard Deviation 61.1 36.4-46.3 fL RDW Coefficient of Variation 18.4 11.5-14.5 % Immature Granulocyte % (Auto) 0.0 % Immature Granulocyte # (Auto) 0.00 0.00-0.02 K/uL Platelet Estimate DECREASED Hypochromasia PRESENT Anisocytosis PRESENT Prothrombin Time 11.3 9.0-12.0 SECONDS Prothromb Time International Ratio 1.1 0.9-1.1 Activated Partial Thromboplast Time 28.0 21.0-31.0 SECONDS Partial Thromboplastin Ratio 1.1 Sodium Level 146 136-145 mmol/L Potassium Level 3.4 3.5-5.1 mmol/L Chloride Level 114 98-107 mmol/L Carbon Dioxide Level 26 21-32 mmol/L Anion Gap 6.0 3-11 mmol/L Blood Urea Nitrogen 39 7-18 mg/dl Creatinine 1.60 0.60-1.40 mg/dl Estimated GFR () 46.8 Estimated GFR (Non- 40.4 BUN/Creatinine Ratio 24.5 10-20 Random Glucose 98 70-99 mg/dl Calcium Level 7.9 8.5-10.1 mg/dl Total Bilirubin 0.7 0.2-1 mg/dl Direct Bilirubin 0.2 0-0.2 mg/dl Aspartate Amino Transf (AST/SGOT) 35 15-37 U/L Alanine Aminotransferase (ALT/SGPT) 35 12-78 U/L Alkaline Phosphatase 117 45-117 U/L Total Protein 5.9 6.4-8.2 gm/dl Albumin 2.6 3.4-5.0 gm/dl Lipase 128 73-393 U/L Urine Color YELLOW Urine Appearance CLEAR CLEAR Urine pH 6.0 4.5-7.5 Urine Specific [place] 1.018 1.000-1.030 Urine Protein NEG NEG Urine Glucose (UA) NEG NEG Urine Ketones NEG NEG Urine Occult Blood NEG NEG Urine Nitrite NEG NEG Urine Bilirubin NEG NEG Urine Urobilinogen NEG NEG Urine Leukocyte Esterase NEG NEG Impression Assessment and Plan ACUTE ON CHRONIC ANEMIA 2* UPPER GI BLEED pt presented with melena assoc with weakness and fatigue; ongoing issue-follows with GI ([facility]) -admit to telemetry -denies anticoagulation and NSAID use -FOBT is positive in ED -EGD 07/12/16 + non-bleeding grade II esophageal varices -Hgb currently 6.3; transfuse 2 units pRBCs now -continue to monitor with H&H q 8h and transfuse PRN -start Protonix drip -consult GI, Dr. Johnson-pending input -pt appears to be hemodynamically stable -continue to monitor closely PANCYTOPENIA -chronic; secondary to Cirrhosis -monitor HYPOKALEMIA -K+ 3.4; replete -monitor with daily prp CKD STAGE 3 -creatinine 1.6 (bl=1.8-2.0) -monitor with daily prp and avoid nephrotoxic agents when able PAF -NSR on monitor -cont BB -pt not a candidate for anticoagulation due to GI bleed -monitor HYPOTHYROIDISM -cont levothyroxine HTN -BP stable -cont amlodipine and carvedilol -monitor DYSLIPIDEMIA -cont statin DVT PROPHYLAXIS -SCDs only in setting of GI bleed CODE STATUS -DNR per discussion with patient upon admission DISPO Pt seen in collaboration with Dr Sams. Please see her addendum for further details. Thanks! -Of note: patient will be seen by Dr. Palencia starting tomorrow AM. VTE Prophylaxis VTE Risk Assessment Done? Y/N: Yes Risk Level: Moderate
[2016-08-27] MEDS ORDERED: POTASSIUM CHLORIDE 10 MEQ TABCR PO ONE (12:45)
[2016-08-27] MEDS ORDERED: PANTOprazole INJ 40 MG in SYRINGE 0 ML IV SCH (12:45)
[2016-08-27] MEDS ORDERED: PANTOprazole INJ 40 MG in DEXTROSE 5% 100ML IV SCH (13:00)
--- NOTE | 2016-08-27 15:52 | Gastrointestinal Consultation ---
Gastrointestinal Consultation Date of Consultation: Aug 27, 2016 Attending Physician: Dr. Mili Sams Consulting Physician: Dr. 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 Pt received 4u PRBCs during last admission but per daughter, has not required out patient transfusion since hospital discharge mid july. Pt admits to increasing weakness, denies CP/SOB. Daughter notes pt had recent bout of diarrhea over the weekend which was brown and then noted darkening BM yesterday. Bowels move several times per day. He does see intermitted melena as well but is also on oral iron. Denies N/V or hematemesis. Pt currently receiving 1st unit of blood at time of consultation. Pt appears weak, chronically ill, in NAD. Pt currently on protonix drip. 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 hx esophageal varices (grade 2) - currently on beta nohemi hx colonic AVMs, last colonoscopy 11/2015 CKD dyslipidemia GERD hx NSTEMI 2010 secondary to severe anemia HTN hypothyroidism Afib - no longer on anticoagulation Past Surgical History: hx colonoscopy and EGD Family History FH: CAD (coronary artery disease) FATHER Social History Smoking Status: Former Smoker Alcohol Use: none Drug Use: none Marital Status: Occupation Status: retired Allergies Coded Allergies: Lisinopril (Verified Allergy, Unknown, UNKNOWN, 07/11/16) Current Medications Home Meds and Scripts Medications Dose Route/Sig Max Daily Dose Days Date Category Dose Instructions Levothyroxine Sodium 75 Mcg Tab 75 Mcg PO QAM 90 07/11/16 Reported Kp Ferrous Sulfate (Ferrous Sulfate) 325 Mg Tab 1 Tab PO BID 30 07/11/16 Reported Norvasc (Amlodipine Besylate) 2.5 Mg Tab 2.5 Mg PO DAILY 05/09/16 Reported Prilosec (Omeprazole) 20 Mg Capcr 20 Mg PO QAM 11/22/15 Reported Coreg (Carvedilol) 25 Mg Tab 12.5 Mg PO BID 11/22/15 Reported NOON & EVENING Lipitor (Atorvastatin Calcium) 80 Mg Tab 40 Mg PO HS 11/22/15 Reported Flomax (Tamsulosin Hcl) 0.4 Mg Cap 0.4 Mg PO HS 11/22/15 Reported Zyloprim (Allopurinol) 100 Mg Tab 100 Mg PO Q2D 11/22/15 Reported Magnesium Oxide (Magnesium Oxide (Mg Supplement) 400 Mg Tab 400 Tab PO BID 11/22/15 Reported Sodium Bicarbonate 650 Mg Tab 1 Tab PO DAILY AT NOON 11/22/15 Reported Review of Systems Constitutional: + fatigue, + weakness, No chills Eyes: No problem reported ENT: No hearing loss, No problem reported Respiratory: No cough, No shortness of breath, No wheezing Cardiac: No chest pain, No edema Abdomen: + see HPI Musculoskeletal: + problem reported (notes being on allopurinol for hx of gout) Male : No dysuria Neuro: No memory loss Psych: No problem reported Heme: + see HPI Endo: No problem reported Skin: No rash Physical Exam Date Time Temp Pulse Resp B/P Pulse Ox O2 Delivery O2 Flow Rate FiO2 08/27/16 15:00 36.6 66 18 147/76 99 08/27/16 14:30 36.5 75 20 136/67 98 08/27/16 14:15 36.6 66 16 139/67 99 08/27/16 14:00 36.7 93 18 149/82 99 08/27/16 13:45 36.5 70 16 155/79 99 08/27/16 13:45 36.5 78 19 99 08/27/16 13:24 36.6 67 18 136/77 99 08/27/16 12:36 36.4 72 18 166/74 Room Air 99.0 08/27/16 12:33 36.4 72 18 166/74 99 Room Air 08/27/16 12:06 57 18 128/68 95 08/27/16 10:58 67 08/27/16 10:24 36.6 70 20 105/61 97 Room Air General Appearance: no apparent distress (appears weak and chronically ill) Eyes: PERRL ENT: hearing grossly normal Neck: supple Respiratory/Chest: lungs clear, normal breath sounds, no respiratory distress Cardiovascular: regular rate, rhythm Abdomen: normal bowel sounds, non tender, soft, no organomegaly Extremities: no pedal edema Neurologic/Psych: alert, normal mood/affect, oriented x 3 Skin: + pallor Laboratory Results Last 24 Hours Test 08/27/16 10:58 08/27/16 11:00 08/27/16 11:04 White Blood Count 3.18 K/uL Red Blood Count 2.24 M/uL Hemoglobin 6.3 g/dL Hematocrit 20.2 % Mean Corpuscular Volume 90.2 fL Mean Corpuscular Hemoglobin 28.1 pg Mean Corpuscular Hemoglobin Concent 31.2 g/dl Platelet Count 53 K/uL Mean Platelet Volume 11.2 fL Neutrophils (%) (Auto) 69.2 % Lymphocytes (%) (Auto) 20.1 % Monocytes (%) (Auto) 6.9 % Eosinophils (%) (Auto) 3.5 % Basophils (%) (Auto) 0.3 % Neutrophils # (Auto) 2.20 K/uL Lymphocytes # (Auto) 0.64 K/uL Monocytes # (Auto) 0.22 K/uL Eosinophils # (Auto) 0.11 K/uL Basophils # (Auto) 0.01 K/uL RDW Standard Deviation 61.1 fL RDW Coefficient of Variation 18.4 % Immature Granulocyte % (Auto) 0.0 % Immature Granulocyte # (Auto) 0.00 K/uL Platelet Estimate DECREASED Hypochromasia PRESENT Anisocytosis PRESENT Prothrombin Time 11.3 SECONDS Prothromb Time International Ratio 1.1 Activated Partial Thromboplast Time 28.0 SECONDS Partial Thromboplastin Ratio 1.1 Sodium Level 146 mmol/L Potassium Level 3.4 mmol/L Chloride Level 114 mmol/L Carbon Dioxide Level 26 mmol/L Anion Gap 6.0 mmol/L Blood Urea Nitrogen 39 mg/dl Creatinine 1.60 mg/dl Estimated GFR () 46.8 Estimated GFR (Non- 40.4 BUN/Creatinine Ratio 24.5 Random Glucose 98 mg/dl Calcium Level 7.9 mg/dl Magnesium Level 2.2 mg/dl Total Bilirubin 0.7 mg/dl Direct Bilirubin 0.2 mg/dl Aspartate Amino Transf (AST/SGOT) 35 U/L Alanine Aminotransferase (ALT/SGPT) 35 U/L Alkaline Phosphatase 117 U/L Total Protein 5.9 gm/dl Albumin 2.6 gm/dl Lipase 128 U/L Urine Color YELLOW Urine Appearance CLEAR Urine pH 6.0 Urine Specific [place] 1.018 Urine Protein NEG Urine Glucose (UA) NEG Urine Ketones NEG Urine Occult Blood NEG Urine Nitrite NEG Urine Bilirubin NEG Urine Urobilinogen NEG Urine Leukocyte Esterase NEG Impression Patient is a 81 year old male with cryptogenic cirrhosis likely secondary to NAFLD and hx of esophageal varices as well as multiple colonic AVMs admitted with recurrent melena and anemia Plan Pt seen in conjunction with Dr. Johnson. Daughter at bedside, pt's history and current events discussed Pt receiving 1st unit of blood at time of consult Continue protonix drip no stools reported today His recent EGD showed nonbleeding varices - doubt that repeating EGD will be of benefit; He remains on beta nohemi. He has known colonic AVMs with last colon less than one year ago. He will likely continue to have chronic slow blood loss with intermittent melena. GI recommendations are to transfuse PRBCs, follow clinically, consider IV iron infusions at regular intervals in hopes to lessen transfusion dependency he is on chronic allopurinol which is also associated with myelosuppression ( assess risk vs benefit) No NSAIDs will follow I performed a history and physical examination of the patient. I have discussed the patient's case, impression and plan with Audrey An PA-C on 08/27. Her note reflects my findings and plan. Allopurinol is not helping his anemia. Consider another agent. Transfuse as need be and follow H/H more closely as an out patient. Riccardo Johnson MD
[2016-08-27] MEDS: FERROUS SULFATE 325 MG TAB PO SCH (16:50)
[2016-08-27 19:09] LABS: HEMATOCRIT 23.1 % (42-52)
[2016-08-27] MEDS: PANTOprazole INJ 40 MG in SYRINGE 0 ML IV SCH (20:57)
[2016-08-27] MEDS: TAMSULOSIN HCL 0.4 MG CAP PO SCH (20:57)
[2016-08-27] MEDS: CARVEDILOL 12.5 MG TAB PO SCH (20:57)
[2016-08-27] MEDS: ATORVASTATIN 40 MG TAB PO SCH (20:57)
[2016-08-27] MEDS: MAGNESIUM OXIDE 400 MG TAB PO SCH (20:58)
[2016-08-28] VITALS (10 sets, daily range): BP systolic 131–174; BP diastolic 60–90; PULSE 59–70; TEMP 36.4–36.9; O2SAT 96–97
[2016-08-28 03:19] LABS: HEMATOCRIT 24.9 % (42-52); MEAN CELL VOLUME 89.2 fL (80-100); MEAN CORPUSCULAR HEMOGLOBIN 29.7 pg (25-34); MEAN CORPUSCULAR HGB CONC 33.3 g/dl (32-36); RED BLOOD COUNT 2.79 M/uL (4.7-6.1); WHITE BLOOD COUNT 2.57 K/uL (4.8-10.8)
[2016-08-28 03:36] LABS: BUN/CREATININE RATIO 16.6 (10-20); CALCIUM 7.6 mg/dl (8.5-10.1); CREATININE 1.8 mg/dl (0.60-1.40); POTASSIUM 3.9 mmol/L (3.5-5.1)
[2016-08-28 03:44] LABS: PLATELET COUNT 36 K/uL (130-400)
[2016-08-28] MEDS: LEVOTHYROXINE 75 MCG TAB PO SCH (05:29)
[2016-08-28] MEDS: MAGNESIUM OXIDE 400 MG TAB PO SCH ×2 (07:51→20:27)
[2016-08-28] MEDS: PANTOprazole INJ 40 MG in SYRINGE 0 ML IV SCH ×2 (07:51→20:26)
[2016-08-28] MEDS: FERROUS SULFATE 325 MG TAB PO SCH ×2 (07:52→17:12)
[2016-08-28] MEDS: CARVEDILOL 12.5 MG TAB PO SCH ×2 (07:52→20:26)
[2016-08-28] MEDS: AMLODIPINE BESYLATE 5 MG TAB PO SCH (07:52)
[2016-08-28] MEDS: SODIUM BICARBONATE 650 MG TAB PO SCH (07:53)
[2016-08-28] MEDS ORDERED: ALLOPURINOL 100 MG TAB PO SCH (09:00)
--- NOTE | 2016-08-28 12:22 | Gastroenterology Progress Note ---
Progress Note Date of Service: Aug 28, 2016 Subjective Pt evaluation today including: conversation w/ patient, physical exam, chart review, lab review 81yo with cirrhosis, varices and colonic AVMs admitted with worsening anemia and melena. Pt transfused 2u PRBCs, hgb responded accordingly from 6.3 to 8.3. Pt denies GI complaints. Does report one dark BM this morning. Pt on protonix drip, no new GI events overnight. Review of Systems Constitutional: No fever, No problem reported ENT: No hearing loss Respiratory: No cough, No shortness of breath Cardiac: No chest pain Abdomen: + see HPI, No nausea, No pain, No vomiting Neuro: No problem reported Psych: No depression symptoms Heme: + see HPI Skin: No rash Medications Current Inpatient Medications Medications (Trade) Dose Ordered Sig/Med Route Start Time Stop Time Status Last Admin Dose Admin Acetaminophen (Tylenol Tab) 650 mg Q4H PRN PO 08/27/16 11:45 09/26/16 11:44 08/27/16 12:46 650 MG Ondansetron HCl (Zofran Inj) 4 mg Q6H PRN IV 08/27/16 11:45 09/26/16 11:44 Nitroglycerin (Nitrostat Tab) 0.4 mg UD PRN SL 08/27/16 11:45 09/26/16 11:44 Allopurinol (Zyloprim Tab) 100 mg Q2D PO 08/28/16 09:00 09/27/16 08:59 08/28/16 07:51 100 MG Amlodipine Besylate (Norvasc Tab) 2.5 mg DAILY PO 08/28/16 09:00 09/27/16 08:59 08/28/16 07:52 2.5 MG Atorvastatin Calcium (Lipitor Tab) 40 mg HS PO 08/27/16 21:00 09/26/16 20:59 08/27/16 20:57 40 MG Carvedilol (Coreg Tab) 12.5 mg BID PO 08/27/16 21:00 09/26/16 20:59 08/28/16 07:52 12.5 MG Levothyroxine Sodium (Synthroid Tab) 75 mcg DAILYBB PO 08/28/16 06:00 09/27/16 05:59 08/28/16 05:29 75 MCG Sodium Bicarbonate (Sodium Bicarbonate Tab) 650 mg DAILY PO 08/28/16 09:00 09/27/16 08:59 08/28/16 07:53 650 MG Tamsulosin HCl (Flomax Cap) 0.4 mg HS PO 08/27/16 21:00 09/26/16 20:59 08/27/16 20:57 0.4 MG Ferrous Sulfate (Feosol Tab) 325 mg BIDM PO 08/27/16 16:45 09/26/16 16:44 08/28/16 07:52 325 MG Magnesium Oxide 400 mg 400 mg BID PO 08/27/16 21:00 09/26/16 20:59 08/28/16 07:51 400 MG Pantoprazole Sodium/Syringe (Protonix Inj/ Syringe) 10 ml @ 40 mls/min BID@0900,2100 IV 08/27/16 21:00 09/26/16 20:59 08/28/16 07:51 40 MLS/MIN Objective Vital Signs Date Time Temp Pulse Resp B/P Pulse Ox O2 Delivery O2 Flow Rate FiO2 08/28/16 07:45 Room Air 08/28/16 07:37 36.9 68 20 150/86 97 Room Air 174/82 08/28/16 04:02 96 Room Air 08/28/16 04:00 36.4 59 17 155/83 96 Room Air 08/28/16 00:45 36.7 66 20 160/82 96 08/28/16 00:39 36.8 65 18 158/85 96 08/27/16 23:59 95 Room Air 08/27/16 23:39 36.8 67 20 158/99 95 08/27/16 22:39 36.8 71 21 159/79 94 08/27/16 21:39 36.4 65 18 149/79 98 08/27/16 21:09 36.7 64 16 159/81 97 08/27/16 20:54 36.7 71 20 149/77 99 08/27/16 20:00 97 Room Air 08/27/16 18:06 36.6 66 20 148/76 97 08/27/16 17:12 36.4 71 20 146/74 98 Room Air 08/27/16 17:10 71 20 146/74 98 08/27/16 16:50 36.6 98 18 138/71 98 08/27/16 16:00 Room Air 08/27/16 15:48 36.6 66 16 138/71 99 08/27/16 15:00 36.6 66 18 147/76 99 08/27/16 14:30 36.5 75 20 136/67 98 08/27/16 14:15 36.6 66 16 139/67 99 08/27/16 14:00 36.7 93 18 149/82 99 08/27/16 13:45 36.5 70 16 155/79 99 08/27/16 13:45 36.5 78 19 99 08/27/16 13:24 36.6 67 18 136/77 99 08/27/16 12:36 36.4 72 18 166/74 Room Air 99.0 08/27/16 12:33 36.4 72 18 166/74 99 Room Air Physical Exam General Appearance: WD/WN, no apparent distress ENT: hearing grossly normal Neck: supple Respiratory/Chest: lungs clear Cardiovascular: regular rate, rhythm, no edema Abdomen: normal bowel sounds, non tender, soft Extremities: non-tender Neurologic/Psych: alert, normal mood/affect Skin: warm/dry Laboratory Results Last 24 Hours Test 08/27/16 18:55 08/28/16 03:05 Hemoglobin 7.4 g/dL 8.3 g/dL Hematocrit 23.1 % 24.9 % White Blood Count 2.57 K/uL Red Blood Count 2.79 M/uL Mean Corpuscular Volume 89.2 fL Mean Corpuscular Hemoglobin 29.7 pg Mean Corpuscular Hemoglobin Concent 33.3 g/dl RDW Standard Deviation 54.5 fL RDW Coefficient of Variation 16.7 % Platelet Count 36 K/uL Mean Platelet Volume 10.0 fL Sodium Level 145 mmol/L Potassium Level 3.9 mmol/L Chloride Level 114 mmol/L Carbon Dioxide Level 29 mmol/L Anion Gap 2.0 mmol/L Blood Urea Nitrogen 30 mg/dl Creatinine 1.80 mg/dl Est Creatinine Clear Calc Drug Dose 32.2 ml/min Estimated GFR () 40.6 Estimated GFR (Non- 35.0 BUN/Creatinine Ratio 16.6 Random Glucose 101 mg/dl Calcium Level 7.6 mg/dl Assessment and Plan 81yo with cirrhosis, hx of esophageal varices (nonbleeding on recent EGD) and multiple colonic AVMs s/p colonoscopy 11/2015. hgb stable post transfusion continue to monitor H/H, transfuse as necessary consider IV iron BID PPI arrange close out patient f/u for lab monitoring No plans for endoscopic intervention this admission unless sign of active bleeding I performed a history and physical examination of the patient. I have discussed the patient's case, impression and plan with Audrey An PA-C. Her note reflects my findings and plan. H/H stable. No need for endoscopy at this point. Riccardo Johnson MD
--- NOTE | 2016-08-28 16:58 | Progress Note ---
Internal Med Progress Note Date of Service: Aug 28, 2016. Provider Documentation: SUBJECTIVE: resting comfortably feeling fine no blood in stools eating fine no abdominal pain OBJECTIVE: Vital Signs-as noted below Exam: General-Alert and oriented ENT-hard of hearing Neck-no neck masses Lungs-cta b/l no wheezing or crackles Heart-s1 and s2 heard regular rate and rhythm no murmurs Abdomen-soft bowel sounds present non tender no distension Extremities-no edema no erythema Neuro-Alert and oriented moves extremities Lab data as noted below. ASSESSMENT & PLAN: ACUTE ON CHRONIC ANEMIA 2* UPPER GI BLEED pt presented with melena assoc with weakness and fatigue; ongoing issue-follows with GI ([facility]) Stool Hemoccult is positive in ED EGD 07/12/16 + non-bleeding grade II esophageal varices s/p colonoscopy 11/2015 and has multiple AVM's Presented with Hgb 6.3 s/p three units of prbc transfused hb 8.3 today no plan for intervention by GI unless active bleeding plan for iv venofer iv ppi bid f/u labs PANCYTOPENIA chronic; secondary to Cirrhosis will f/u labs HYPOKALEMIA replace. CKD STAGE 3 baseline Cr 1.8-2.0) cr 1.8 today f/u labs. PAF NSR on monitor on BB not a candidate for anticoagulation due to GI bleed will monitor HYPOTHYROIDISM ON levothyroxine HTN ON t amlodipine and carvedilol WILL monitor DYSLIPIDEMIA statin DVT PROPHYLAXIS SCDs only in setting of GI bleed CODE STATUS DNR per h and p DISPO To be determined Vital Signs: Date Time Temp Pulse Resp B/P Pulse Ox O2 Delivery O2 Flow Rate FiO2 08/28/16 15:40 36.4 70 18 148/75 97 Room Air 08/28/16 11:30 Room Air 08/28/16 10:40 36.4 60 20 131/60 97 Room Air 08/28/16 07:45 Room Air 08/28/16 07:37 36.9 68 20 150/86 97 Room Air 174/82 08/28/16 04:02 96 Room Air 08/28/16 04:00 36.4 59 17 155/83 96 Room Air 08/28/16 00:45 36.7 66 20 160/82 96 08/28/16 00:39 36.8 65 18 158/85 96 08/27/16 23:59 95 Room Air 08/27/16 23:39 36.8 67 20 158/99 95 08/27/16 22:39 36.8 71 21 159/79 94 08/27/16 21:39 36.4 65 18 149/79 98 08/27/16 21:09 36.7 64 16 159/81 97 08/27/16 20:54 36.7 71 20 149/77 99 08/27/16 20:00 97 Room Air 08/27/16 18:06 36.6 66 20 148/76 97 08/27/16 17:12 36.4 71 20 146/74 98 Room Air 08/27/16 17:10 71 20 146/74 98 08/27/16 16:50 36.6 98 18 138/71 98 Lab Results: Results Past 24 Hours Test 08/27/16 18:55 08/28/16 03:05 Range/Units Hemoglobin 7.4 8.3 14.0-18.0 g/dL Hematocrit 23.1 24.9 42-52 % White Blood Count 2.57 4.8-10.8 K/uL Red Blood Count 2.79 4.7-6.1 M/uL Mean Corpuscular Volume 89.2 80-100 fL Mean Corpuscular Hemoglobin 29.7 25-34 pg Mean Corpuscular Hemoglobin Concent 33.3 32-36 g/dl RDW Standard Deviation 54.5 36.4-46.3 fL RDW Coefficient of Variation 16.7 11.5-14.5 % Platelet Count 36 130-400 K/uL Mean Platelet Volume 10.0 7.4-10.4 fL Sodium Level 145 136-145 mmol/L Potassium Level 3.9 3.5-5.1 mmol/L Chloride Level 114 98-107 mmol/L Carbon Dioxide Level 29 21-32 mmol/L Anion Gap 2.0 3-11 mmol/L Blood Urea Nitrogen 30 7-18 mg/dl Creatinine 1.80 0.60-1.40 mg/dl Est Creatinine Clear Calc Drug Dose 32.2 ml/min Estimated GFR () 40.6 Estimated GFR (Non- 35.0 BUN/Creatinine Ratio 16.6 10-20 Random Glucose 101 70-99 mg/dl Calcium Level 7.6 8.5-10.1 mg/dl Microbiology Results 08/28/16 C.difficile Toxin B Gene (PCR) - Final, Complete No C. difficile toxin B gene detected 08/28/16 Shiga Toxin Test, Received Pending 08/28/16 Stool Culture, Received Pending
[2016-08-28] MEDS: IRON SUCROSE INJ 100 MG in SODIUM CHLORIDE 0.9% 100ML 100 ML IV SCH (17:11)
[2016-08-28] MEDS: ATORVASTATIN 40 MG TAB PO SCH (20:26)
[2016-08-28] MEDS: TAMSULOSIN HCL 0.4 MG CAP PO SCH (20:27)
[2016-08-29 04:07] VITALS: BP 147/78; PULSE 69; TEMP 36.6; O2SAT 96
[2016-08-29] MEDS: LEVOTHYROXINE 75 MCG TAB PO SCH (06:01)
[2016-08-29 07:49] VITALS: BP 140/83; PULSE 79; TEMP 36.8; O2SAT 95
[2016-08-29] MEDS: CARVEDILOL 12.5 MG TAB PO SCH (08:08)
[2016-08-29] MEDS: FERROUS SULFATE 325 MG TAB PO SCH ×2 (08:08→15:55)
[2016-08-29] MEDS: AMLODIPINE BESYLATE 5 MG TAB PO SCH (08:08)
[2016-08-29] MEDS: MAGNESIUM OXIDE 400 MG TAB PO SCH (08:08)
[2016-08-29] MEDS: PANTOprazole INJ 40 MG in SYRINGE 0 ML IV SCH (08:08)
[2016-08-29] MEDS: SODIUM BICARBONATE 650 MG TAB PO SCH (08:09)
[2016-08-29 08:26] LABS: HEMATOCRIT 28.2 % (42-52); MEAN CELL VOLUME 89.8 fL (80-100); MEAN CORPUSCULAR HEMOGLOBIN 29.3 pg (25-34); MEAN CORPUSCULAR HGB CONC 32.6 g/dl (32-36); RED BLOOD COUNT 3.14 M/uL (4.7-6.1); WHITE BLOOD COUNT 2.85 K/uL (4.8-10.8)
[2016-08-29 08:33] LABS: BASO % 0.7 %; BASO ABS # 0.02 K/uL (0-0.2); COMPLETE YES; EOS % 4.2 %; LYMPH % 24.9 %; LYMPH ABS # 0.71 K/uL (1.2-3.4); MEAN PLATELET VOLUME 10.8 fL (7.4-10.4); MONO % 5.6 %; NEUT % 64.6 %; PLATELET COUNT 44 K/uL (130-400)
[2016-08-29] MEDS: IRON SUCROSE INJ 100 MG in SODIUM CHLORIDE 0.9% 100ML 100 ML IV SCH (09:20)
[2016-08-29 10:36] VITALS: BP_SYST 143; BP_SYST 153; BP_DIAS 80; BP_DIAS 92; PULSE 70; TEMP 36.4; O2SAT 97
[2016-08-29 11:01] LABS: HYPERSEGMENTED POLYS 1+
--- NOTE | 2016-08-29 14:14 | Progress Note ---
Internal Med Progress Note Date of Service: Aug 29, 2016. Provider Documentation: SUBJECTIVE: resting comfortably eating fine no nausea or abdominal pain feeling good 'ok to go home OBJECTIVE: Vital Signs-as noted below Exam: General-Alert and oriented ENT-hard of hearing Neck-no neck masses Lungs-cta b/l no wheezing or crackles Heart-s1 and s2 heard regular rate and rhythm no murmurs Abdomen-soft bowel sounds present non tender no distension Extremities-no edema no erythema Neuro-Alert and oriented moves extremities Lab data as noted below. ASSESSMENT & PLAN: ACUTE ON CHRONIC ANEMIA 2* UPPER GI BLEED pt presented with melena assoc with weakness and fatigue; ongoing issue-follows with GI ([facility]) Stool Hemoccult is positive in ED EGD 07/12/16 + non-bleeding grade II esophageal varices s/p colonoscopy 11/2015 and has multiple AVM's Presented with Hgb 6.3 s/p three units of prbc transfused hb 9.2 today no plan for intervention by GI unless active bleeding plan for iv venofer iv ppi bid pt/ot PANCYTOPENIA chronic; secondary to Cirrhosis will f/u labs stable HYPOKALEMIA replace. CKD STAGE 3 baseline Cr 1.8-2.0) cr 1.8 today f/u labs. PAF NSR on monitor on BB not a candidate for anticoagulation due to GI bleed will monitor HYPOTHYROIDISM ON levothyroxine HTN ON t amlodipine and carvedilol WILL monitor DYSLIPIDEMIA statin DVT PROPHYLAXIS SCDs only in setting of GI bleed CODE STATUS DNR per h and p DISPO pt/ot possible d/c today Vital Signs: Date Time Temp Pulse Resp B/P Pulse Ox O2 Delivery O2 Flow Rate FiO2 08/29/16 12:00 Room Air 08/29/16 10:36 36.4 70 20 153/80 97 Room Air 08/29/16 08:00 Room Air 08/29/16 07:49 36.8 79 20 140/83 95 Room Air 08/29/16 04:07 36.6 69 18 147/78 96 Room Air 08/29/16 04:00 Room Air 08/28/16 23:59 Room Air 08/28/16 23:51 36.6 67 20 146/76 96 Room Air 08/28/16 20:00 Room Air 08/28/16 19:35 36.7 67 18 153/90 97 Room Air 08/28/16 16:00 97 Room Air 08/28/16 15:40 36.4 70 18 148/75 97 Room Air Lab Results: Results Past 24 Hours Test 08/29/16 08:07 Range/Units White Blood Count 2.85 4.8-10.8 K/uL Red Blood Count 3.14 4.7-6.1 M/uL Hemoglobin 9.2 14.0-18.0 g/dL Hematocrit 28.2 42-52 % Mean Corpuscular Volume 89.8 80-100 fL Mean Corpuscular Hemoglobin 29.3 25-34 pg Mean Corpuscular Hemoglobin Concent 32.6 32-36 g/dl Platelet Count 44 130-400 K/uL Mean Platelet Volume 10.8 7.4-10.4 fL Neutrophils (%) (Auto) 64.6 % Lymphocytes (%) (Auto) 24.9 % Monocytes (%) (Auto) 5.6 % Eosinophils (%) (Auto) 4.2 % Basophils (%) (Auto) 0.7 % Neutrophils # (Auto) 1.84 1.4-6.5 K/uL Lymphocytes # (Auto) 0.71 1.2-3.4 K/uL Monocytes # (Auto) 0.16 0.11-0.59 K/uL Eosinophils # (Auto) 0.12 0-0.5 K/uL Basophils # (Auto) 0.02 0-0.2 K/uL RDW Standard Deviation 55.1 36.4-46.3 fL RDW Coefficient of Variation 16.9 11.5-14.5 % Immature Granulocyte % (Auto) 0.0 % Immature Granulocyte # (Auto) 0.00 0.00-0.02 K/uL Hypersegmented Polys 1+
--- NOTE | 2016-08-29 15:00 | Discharge Instructions ---
Discharge Instructions Date of Service Aug 29, 2016. Admission Reason for Admission: Upper Gi Bleed Discharge Discharge Diagnosis / Problem: ANEMIA Discharge Goals Goal(s): Decrease discomfort, Improve function Activity Recommendations Activity Limitations: resume your previous activity . Instructions / Follow-Up Instructions / Follow-Up FOLLOWUP WITH FAMILY DOCTOR ON September AT 2:50PM LAB: CBC WEEKLY AND FOLLOW RESULTS WITH FAMILY DOCTOR. Current Hospital Diet Patient's current hospital diet: Regular Diet Discharge Diet Recommended Diet: AHA Diet (Heart Healthy) Pending Studies Studies pending at discharge: no Medical Emergencies . Who to Call and When: Medical Emergencies: If at any time you feel your situation is an emergency, please call 911 immediately. . Non-Emergent Contact Non-Emergency issues call your: Primary Care Provider . . "Provider Documentation" section prepared by Abhay Palencia. . VTE Core Measure Inpt VTE Proph given/why not?: SCD's
[2016-08-29 15:13] VITALS: BP 153/80; PULSE 70; TEMP 36.4; O2SAT 97
--- NOTE | 2016-08-29 17:58 | Discharge Summary ---
Discharge Summary Date of Service Aug 29, 2016. Discharge Summary Admission Date: Aug 27, 2016 at 11:42 Discharge Date: Aug 29, 2016 Discharge Disposition: Home with services Principal Diagnosis: ANEMIA GI BLEED Secondary Diagnoses/Problems: (1) Anemia Status: Chronic (2) BPH (benign prostatic hypertrophy) Status: Chronic (3) Cirrhosis Status: Chronic (4) CKD (chronic kidney disease), stage III Status: Chronic (5) Dyslipidemia Status: Chronic (6) Esophageal varices Permanent Comment: Mar 2015- small varices, mild erosive antral gastritis Status: Chronic (7) GERD (gastroesophageal reflux disease) Status: Chronic (8) History of non-ST elevation myocardial infarction (NSTEMI) Permanent Comment: in October 2010 secondary to severe anemia Status: Chronic (9) Hypertension Status: Chronic (10) Hypothyroidism Status: Chronic (11) Liver disease Status: Chronic (12) NAFLD (nonalcoholic fatty liver disease) Status: Chronic (13) Paroxysmal atrial fibrillation Status: Chronic (14) Thrombocytopenia Status: Chronic Procedures: CXR: Mild cardiomegaly. No acute findings. Consultations: GI Medication Reconciliation Continued Medications: Allopurinol (Zyloprim) 100 Mg Tab 100 MG PO Q2D, TAB Amlodipine (Norvasc) 2.5 Mg Tab 2.5 MG PO DAILY, TAB Atorvastatin (Lipitor) 80 Mg Tab 40 MG PO HS, TAB Carvedilol (Coreg) 25 Mg Tab 12.5 MG PO BID, TAB NOON & EVENING Ferrous Sulfate (Kp Ferrous Sulfate) 325 Mg Tab 1 TAB PO BID for 30 Days, #60 TAB 3 Refills Levothyroxine Sodium (Levothyroxine Sodium) 75 Mcg Tab 75 MCG PO QAM for 90 Days, #90 TAB 3 Refills Magnesium Oxide (Mg Supplement (Magnesium Oxide) 400 Mg Tab 400 TAB PO BID Omeprazole (Prilosec) 20 Mg Capcr 20 MG PO QAM, CAP Sodium Bicarbonate (Sodium Bicarbonate) 650 Mg Tab 1 TAB PO DAILY AT NOON Tamsulosin Hcl (Flomax) 0.4 Mg Cap 0.4 MG PO HS, CAP Admission Information HPI (per Admitting provider): This is a 81 y/o male with PMHx of GALEANO Cirrhosis, Esophageal Varices, CKD stage 3, PAF, HTN, Dyslipidemia and other problems as outlined below who presents to the ED c/o recurrent melena for 1 week. Pt has a long history of iron deficiency anemia requiring periodic transfusions. Pt was admitted last month with a anemia/melena. EGD showed non-bleeding grade II esophageal varices. He received a total of 4 units pRBCs and was discharged home with GI followup ([facility]). Since discharge, patient was having intermittent black stools however for the past week his stool has been consistently black and tarry. Sxs are assoc with generalized weakness/fatigue and some diarrhea yesterday. Outpatient bloodwork done yesterday showed HgB 6.4 and patient was directed to the ED. Pt is not on any anticoagulation and he does not use NSAIDs. Pt denies fever/chills, diaphoresis, chest pain, palpitations, SOB, abd pain, N/V, bladder issues, LE edema ,calf pain, lightheadedness/dizziness. In the ED, vitals are stable. HgB 6.3. plt count 53. Pt is hemodynamically stable and will be admitted for further evaluation and treatment. Physical Exam (per Admitting): General Appearance: WD/WN, no apparent distress, + pertinent finding (Pt is laying in bed with daughter at bedside) Head: normocephalic, atraumatic Eyes: normal inspection ENT: hearing grossly normal Neck: supple Respiratory/Chest: chest non-tender, lungs clear, normal breath sounds, no respiratory distress Cardiovascular: regular rate, rhythm, no edema, no murmur Abdomen/GI: normal bowel sounds, non tender, soft Back: normal inspection Extremities/Musculoskelatal: normal inspection, no calf tenderness, no pedal edema Neurologic/Psych: alert, normal mood/affect, oriented x 3 Skin: + pallor Hospital Course ACUTE ON CHRONIC ANEMIA 2* UPPER GI BLEED pt presented with melena assoc with weakness and fatigue; ongoing issue-follows with GI ([facility]) Stool Hemoccult is positive in ED EGD 07/12/16 + non-bleeding grade II esophageal varices s/p colonoscopy 11/2015 and has multiple AVM's Presented with Hgb 6.3 s/p three units of prbc transfused hb 9.2 today no plan for intervention by GI unless active bleeding plan for iv venofer iv ppi bid pt/ot PANCYTOPENIA chronic; secondary to Cirrhosis will f/u labs stable HYPOKALEMIA replace. CKD STAGE 3 baseline Cr 1.8-2.0) cr 1.8 today f/u labs. PAF NSR on monitor on BB not a candidate for anticoagulation due to GI bleed will monitor HYPOTHYROIDISM ON levothyroxine HTN ON t amlodipine and carvedilol WILL monitor DYSLIPIDEMIA statin DVT PROPHYLAXIS SCDs only in setting of GI bleed CODE STATUS DNR per h and p DISPO pt/ot possible d/c today Total time spent on discharge = 35MINUTES This includes examination of the patient, discharge planning, medication reconciliation, and communication with other providers. Discharge Instructions Discharge Instructions Date of Service Aug 29, 2016. Admission Reason for Admission: Upper Gi Bleed Discharge Discharge Diagnosis / Problem: ANEMIA Discharge Goals Goal(s): Decrease discomfort, Improve function Activity Recommendations Activity Limitations: resume your previous activity . Instructions / Follow-Up Instructions / Follow-Up FOLLOWUP WITH FAMILY DOCTOR ON September AT 2:50PM LAB: CBC WEEKLY AND FOLLOW RESULTS WITH FAMILY DOCTOR. Current Hospital Diet Patient's current hospital diet: Regular Diet Discharge Diet Recommended Diet: AHA Diet (Heart Healthy) Pending Studies Studies pending at discharge: no Medical Emergencies . Who to Call and When: Medical Emergencies: If at any time you feel your situation is an emergency, please call 911 immediately. . Non-Emergent Contact Non-Emergency issues call your: Primary Care Provider . . "Provider Documentation" section prepared by Abhay Palencia. . VTE Core Measure Inpt VTE Proph given/why not?: SCD's
[2016-09-15] MEDS ORDERED: CARV25TA2 PO (11:54)
[2016-09-15] MEDS ORDERED: SODI650T8 PO (11:54)
[2016-09-15] MEDS ORDERED: ALLO100T PO (11:54)
[2016-09-15] MEDS ORDERED: PRLSR20 PO (11:54)
[2016-09-15] MEDS ORDERED: TAMS0.4C38 PO (11:54)
[2016-09-15] MEDS ORDERED: MAGN1TAB19 PO (11:54)
[2016-09-15] MEDS ORDERED: ATOR-26 PO (11:54)
[2016-09-15] MEDS ORDERED: AMLO2.5T PO (18:29)
[2016-09-23] MEDS ORDERED: TRAM-10 PO (13:53)
[2016-09-23] MEDS ORDERED: NRV5 PO (13:53)
[2016-10-03] MEDS ORDERED: HYDR-5688 PO (12:03)
[2016-10-03] MEDS ORDERED: XFX550 PO (12:03)
[2016-10-03] MEDS ORDERED: ALBINS INH (12:03)
[2017-01-29] MEDS ORDERED: CALC500C3 PO (10:26)
[2017-01-29] MEDS ORDERED: PRLSR20 PO (10:26)
[2017-01-29] MEDS ORDERED: AMLO2.5T PO (10:26)
[2017-01-29] MEDS ORDERED: FURO-85 PO (10:26)
== END 2016-08-29 18:08 | disposition home health service (06) | DRG 378 ==
LOC: ENRESERVDT → ENRESERVTM → C.EDB 10:07 → C.2E 11:42
PROVIDERS: ADMIT Internal Medicine; ATTEND Internal Medicine
DX: K92.2 Gastrointestinal hemorrhage, unspecified (principal); D62 Acute posthemorrhagic anemia; D61.818 Other pancytopenia; I85.00 Esophageal varices without bleeding; Z66 Do not resuscitate; N40.0 Benign prostatic hyperplasia without lower urinary tract symptoms; I12.9 Hypertensive chronic kidney disease with stage 1 through stage 4 chronic kidney disease, or unspecified chronic kidney disease; N18.3 Chronic kidney disease, stage 3 (moderate); E78.5 Hyperlipidemia, unspecified; K21.9 Gastro-esophageal reflux disease without esophagitis; E03.9 Hypothyroidism, unspecified; I48.0 Paroxysmal atrial fibrillation; K75.81 Nonalcoholic steatohepatitis (NASH); E87.6 Hypokalemia; I25.2 Old myocardial infarction; Z87.891 Personal history of nicotine dependence

== ENCOUNTER 2016-09-15 21:15 | Inpatient (IN) | payer OTHER ==
[~2016-09-15] VITALS: Ht 175.3 cm; Wt 81.1 kg
[~2016-09-15 21:15] MED LIST changes: +ALLO100T PO; +AMLO2.5T PO; +ATOR-26 PO; +CARV25TA2 PO; -FERR325T51 PO; -LEVO50TA6 PO; +MAGN1TAB19 PO; +PRLSR20 PO; +SODI650T8 PO; +TAMS0.4C38 PO
[2016-09-15] MEDS ORDERED: LEVO75TA5 PO (21:18)
[2016-09-15] MEDS ORDERED: FERR1TAB13 PO (21:18)
--- NOTE | 2016-09-15 21:32 | EMERGENCY ROOM VISIT NOTE ---
History Report prepared by Meghan: Ej Trejo Under the Supervision of: Dr. Jeremías Mcbride D.O. First contact with patient: 21:16 Stated Complaint: POSS. STROKE History of Present Illness The patient is a 81 year old male who presents to the Emergency Room via emergency medical services with possible stroke symptoms. According to the patient, he fell while using the restroom last night. According to the EMS the family state that they found the patient today at 2000, 1.5 hours prior to arrival behaving unusually. They state that he was last seen well yesterday, but he notes to the family that he fell last night as well. He currently denies any chest pain or trouble breathing, black/bloody stool, abdominal pain, or blood in the urine. The patient has a history fo gastrointestinal bleeding. Source of History: patient, family, EMS Onset: noticed 1.5 hours [employer], last known well yesterday Position: other (Neuro) Quality: other (AMS ) Associated Symptoms: No SOB, No abdominal pain, No chest pain, No melena Review of Systems See HPI for pertinent positives & negatives. A total of 10 systems reviewed and were otherwise negative. Past Medical & Surgical Medical Problems: (1) Anemia (2) BPH (benign prostatic hypertrophy) (3) Cirrhosis (4) CKD (chronic kidney disease), stage III (5) Dyslipidemia (6) Esophageal varices (7) GERD (gastroesophageal reflux disease) (8) History of non-ST elevation myocardial infarction (NSTEMI) (9) Hypertension (10) Hypothyroidism (11) Liver disease (12) NAFLD (nonalcoholic fatty liver disease) (13) Paroxysmal atrial fibrillation (14) Symptomatic anemia (15) Thrombocytopenia Surgical Problems: (1) H/O colonoscopy (2) H/O esophagogastroduodenoscopy Family History FH: CAD (coronary artery disease) FATHER Social History Smoking Status: Former Smoker Alcohol Use: none Drug Use: none Marital Status: Occupation Status: retired Current/Historical Medications Scheduled Allopurinol (Zyloprim), 100 MG PO Q2D Amlodipine (Norvasc), 2.5 MG PO DAILY Atorvastatin (Lipitor), 40 MG PO HS Carvedilol (Coreg), 12.5 MG PO BID@1200,2100 Ferrous Sulfate (Kp Ferrous Sulfate), 1 TAB PO BID Levothyroxine Sodium (Levothyroxine Sodium), 75 MCG PO QAM Magnesium Oxide (Mg Supplement (Magnesium Oxide), 400 TAB PO BID Omeprazole (Prilosec), 20 MG PO QAM Prednisone (Prednisone), 10 MG PO TAPER UD Sodium Bicarbonate (Sodium Bicarbonate), 1 TAB PO DAILY AT NOON Tamsulosin Hcl (Flomax), 0.4 MG PO HS Allergies Coded Allergies: Lisinopril (Verified Allergy, Unknown, UNKNOWN, 07/11/16) Physical Exam Vital Signs Date Time Temp Pulse Resp B/P Pulse Ox O2 Delivery O2 Flow Rate FiO2 09/15/16 23:50 78 17 93 09/15/16 23:30 142/86 09/15/16 23:20 79 14 92 09/15/16 23:00 148/82 09/15/16 22:50 82 16 93 09/15/16 22:45 83 14 92 09/15/16 22:30 127/90 09/15/16 22:15 83 13 92 09/15/16 22:00 147/90 09/15/16 21:45 79 19 09/15/16 21:45 80 20 129/71 93 Room Air 09/15/16 21:25 85 09/15/16 21:15 100 Room Air 09/15/16 21:15 36.6 88 24 158/92 100 Room Air Physical Exam GENERAL: Patient is listless and uncomfortable appearing and in significant pain. EYES: The conjunctivae are clear. The pupils are round and reactive. EARS, NOSE, MOUTH AND THROAT: The nose is without any evidence of any deformity. Mucous membranes are dry, tongue is midline NECK: The neck is nontender and supple. RESPIRATORY: Shallow respirations noted, no tachypnea or conversational dyspnea noted. Normal respiratory effort is noted there is no evidence of wheezing rhonchi or rales CARDIOVASCULAR: Regular rate and rhythm noted there no murmurs rubs or gallops normal S1 normal S2 GASTROINTESTINAL: The abdomen is soft. Bowel sounds are present in all quadrants. Abdomen is nontender PELVIS: The Pelvis is stable. No tenderness to palpation is noted. BACK: No midline tenderness or or step-off noted range of motion in flexion extension as well as rotation no signs of muscle spasm noted. There is low lumbar tenderness to percussion. ROM appears to be significantly diminished secondary to pain. MUSCULOSKELETAL/EXTREMITIES: There is no evidence of gross deformity full range of motion is noted in the hips and shoulders. SKIN: There is no obvious evidence of any rash. There are no petechiae, pallor or cyanosis noted. Pedal edema bilaterally. NEUROLOGIC: Patient is awake alert and oriented to person, place, and situation. Strength is diminished but equal bilaterally. Medical Decision & Procedures ER Provider Diagnostic Interpretation: Radiology results as stated below per my review and radiologist interpretation: LUMBAR SPINE CT CT DOSE: HISTORY: Low back pain. fall TECHNIQUE: Multiaxial CT images of the lumbar spine were performed and reformatted in the sagittal and coronal plane without the use of contrast. COMPARISON: None. FINDINGS: There is a 2 cm gastrohepatic lymph node. Mild central canal narrowing within the lower lumbar spine due to disc bulges and ligamentum and facet hypertrophy. Mild to moderate facet degenerative changes seen within the lower lumbar spine. Moderate disc space narrowing at L2-L3 and severe disc space narrowing at L5-S1. There is mild compression fracture within the L1 vertebral body which involves both the superior and inferior endplates. There is 2 mm of retropulsion of the posterior cortex. No additional fractures within the lumbar spine. IMPRESSION: Age-indeterminate mild compression fracture at L1 which demonstrates 2 mm of retropulsion of the posterior cortex. No significant central canal narrowing. A 2 cm gastrohepatic lymph node which is considered pathologically enlarged. Follow-up nonemergent abdominal CT is recommended for further evaluation. Electronically signed by: Anthony Marcial M.D. 09/15/2016 10:02 PM Dictated Date/Time: 09/15/2016 9:[address]AST CT DOSE: HISTORY: EVALUATE ALTERED MENTAL STATUS/WEAKNESS TECHNIQUE: Multiaxial CT images of the head were performed without the use of intravenous contrast. Automated exposure control was utilized for this study. Comparison: None. Findings: The paranasal sinuses and mastoid air cells are clear. The calvarium and skull base are intact. There is no hematoma, midline shift, acute infarct. White matter hypodensity is nonspecific but suggestive of microvascular ischemic change. The ventricles and sulci demonstrate mild age-related involutional changes. There is a 2.6 cm suprasellar mass. This is slightly hyperdense. No hydrocephalus. Impression: No acute intracranial abnormality. Atrophy and microvascular ischemic changes. A 2.6 cm suprasellar mass. This favors a pituitary macroadenoma. A meningioma or less likely aneurysm could also have a similar appearance. Nonemergent brain/pituitary MRI is recommended for confirmation. Electronically signed by: Anthony Marcial M.D. 09/15/2016 9:48 PM Dictated Date/Time: 09/15/2016 9:43 PM CHEST ONE VIEW PORTABLE HISTORY: EVALUATE ALTERED MENTAL STATUS/WEAKNESS COMPARISON: Chest 08/27/2016. FINDINGS: No focal lung consolidations to suggest pneumonia. No evidence for pulmonary edema. The heart remains mildly enlarged. Tortuous thoracic aorta. No pleural effusions. No pneumothorax. IMPRESSION: Stable mild cardiomegaly. No acute process within the chest. Electronically signed by: Anthony Marcial M.D. 09/15/2016 10:39 PM Dictated Date/Time: 09/15/2016 10:[address] DOSE: 2902.43 mGy.cm HISTORY: Neck pain. fall TECHNIQUE: Multiaxial CT images of the cervical spine were performed and reformatted in the sagittal and coronal plane without the use of contrast. COMPARISON: None. FINDINGS: No fractures. No subluxation. Prevertebral soft tissues and the C1-C2 interval are intact. No pneumothorax. Moderate disc space narrowing at C5-C6 and C6-C7. IMPRESSION: No fractures within the cervical spine. Electronically signed by: Anthony Marcial M.D. 09/15/2016 9:54 PM Dictated Date/Time: 09/15/2016 9:48 PM Laboratory Results Test 09/15/16 20:45 09/15/16 21:50 Hypersegmented Polys 1+ Ovalocytes 2+ Prothrombin Time 12.7 SECONDS (9.0-12.0) Prothromb Time International Ratio 1.2 (0.9-1.1) Activated Partial Thromboplast Time 27.4 SECONDS (21.0-31.0) Partial Thromboplastin Ratio 1.1 Phosphorus Level 3.0 mg/dl (2.5-4.9) Total Bilirubin 3.0 mg/dl (0.2-1) Direct Bilirubin 0.4 mg/dl (0-0.2) Aspartate Amino Transf (AST/SGOT) 45 U/L (15-37) Alanine Aminotransferase (ALT/SGPT) 52 U/L (12-78) Alkaline Phosphatase 130 U/L (45-117) Total Creatine Kinase 68 U/L (39-308) Creatine Kinase MB 1.3 ng/ml (0.5-3.6) Creatine Kinase MB Ratio 1.9 (0-3.0) Troponin I < 0.015 ng/ml (0-0.045) Pro-B-Type Natriuretic Peptide 1896 pg/ml (0-1800) Total Protein 6.7 gm/dl (6.4-8.2) Albumin 3.4 gm/dl (3.4-5.0) Lipase 133 U/L (73-393) Thyroid Stimulating Hormone (TSH) 3.910 uIu/ml (0.300-4.500) Urine Color YELLOW Urine Appearance CLEAR (CLEAR) Urine pH 6.5 (4.5-7.5) Urine Specific Onward 1.018 (1.000-1.030) Urine Protein NEG (NEG) Urine Glucose (UA) NEG (NEG) Urine Ketones NEG (NEG) Urine Occult Blood NEG (NEG) Urine Nitrite NEG (NEG) Urine Bilirubin NEG (NEG) Urine Urobilinogen NEG (NEG) Urine Leukocyte Esterase NEG (NEG) Laboratory results per my review. Medications Administered Medications (Trade) Dose Ordered Sig/Med Route Start Time Stop Time Status Last Admin Dose Admin Morphine Sulfate (MoRPHine SULFATE INJ) 4 mg Q15M PRN IV 09/15/16 22:15 09/16/16 01:05 DC 09/15/16 22:11 4 MG Ondansetron HCl (Zofran Inj) 4 mg NOW STAT IV 09/15/16 22:03 09/15/16 22:05 DC 09/15/16 22:12 4 MG ECG Indication: altered mental status Rate (beats per minute): 86 Rhythm: sinus rhythm Findings: 1st degree AV block, no ectopy, other (LVH by voltage criteria) Comparison ECG Date: 07/27/2016 Change: no significant change ED Course 2116: The patient was evaluated in room B6. A complete history and physical examination were performed. 2202: Ordered Zofran 4 mg IV. 2214: Ordered Morphine Sulfate 4 mg IV. Medical Decision Differential diagnosis: Etiologies such as metabolic, infection, hypoglycemia, electrolyte abnormalities , cardiac sources, intracerebral event, toxicologic, neurologic, as well as others were entertained. Nursing notes reviewed. Additional history is obtained from the prehospital personnel. The patient is a 81-year-old male who presented to the emergency department by EMS. I was contacted by the EMS for a medical command call. They were unsure if the patient was suffering from a stroke however his last known well time was the day before. The patient was in bed when he was found. He related to his family that he had fallen through the night. The patient complained of back pain but his family states he has had chronic back pain in the past. The patient was felt to have a possible facial droop but on my exam the patient had no focal neurologic deficit or unilateral weakness. I discussed the patient's laboratory and radiographic studies with him and his family members. He was treated with IV pain medication in the emergency department. He did have very significant point tenderness on physical exam and on CAT scan had a compression fracture in the lumbar spine. The patient was also found have an abnormality on the CT the head although I do not feel this represents the reason for the patient's presentation today. It will require further radiographic studies however. The patient was reevaluated multiple times. I discussed his case with the on-call [facility] hospitalist group. They've agreed to evaluate the patient in the emergency department for further management and disposition. Consults Time Called: [id number] Consulting Physician: Dr. Slime Bingham Returned Call: [phone] I discussed the case with Dr. Slime Bingham, he will evaluate the patient for further treatment. Impression Primary Impression: Fall Additional Impressions: Lumbar compression fracture Low back pain Weakness Abnormal CT of the head Scribe Attestation The scribe's documentation has been prepared under my direction and personally reviewed by me in its entirety. I confirm that the note above accurately reflects all work, treatment, procedures, and medical decision making performed by me. Departure Information Dispostion Being Evaluated By Hospitalist Referrals Vlima Gooden M.D. (PCP) Problem Qualifiers Primary Impression: Fall Encounter type: initial encounter Qualified Codes: W19.XXXA - Unspecified fall, initial encounter Additional Impressions: Lumbar compression fracture Encounter type: initial encounter Fracture type: closed Qualified Codes: S32.000A - Wedge compression fracture of unspecified lumbar vertebra, initial encounter for closed fracture Low back pain Chronicity: acute Back pain laterality: midline Sciatica presence: without sciatica Qualified Codes: M54.5 - Low back pain
[2016-09-15 21:35] LABS: HEMATOCRIT 36.6 % (42-52); MEAN CELL VOLUME 90.1 fL (80-100); MEAN CORPUSCULAR HEMOGLOBIN 28.6 pg (25-34); MEAN CORPUSCULAR HGB CONC 31.7 g/dl (32-36); RED BLOOD COUNT 4.06 M/uL (4.7-6.1); WHITE BLOOD COUNT 13.93 K/uL (4.8-10.8)
[2016-09-15 21:45] LABS: INR 1.2 (0.9-1.1); PARTIAL THROMBOPLASTIN RATIO 1.1; PROTHROMBIN TIME (PATIENT) 12.7 SECONDS (9.0-12.0)
--- NOTE | 2016-09-15 21:50 | DIAGNOSTIC IMAGING REPORT ---
HEAD CT NONCONTRAST CT DOSE: HISTORY: EVALUATE ALTERED MENTAL STATUS/WEAKNESS TECHNIQUE: Multiaxial CT images of the head were performed without the use of intravenous contrast. Automated exposure control was utilized for this study. Comparison: None. Findings: The paranasal sinuses and mastoid air cells are clear. The calvarium and skull base are intact. There is no hematoma, midline shift, acute infarct. White matter hypodensity is nonspecific but suggestive of microvascular ischemic change. The ventricles and sulci demonstrate mild age-related involutional changes. There is a 2.6 cm suprasellar mass. This is slightly hyperdense. No hydrocephalus. Impression: No acute intracranial abnormality. Atrophy and microvascular ischemic changes. A 2.6 cm suprasellar mass. This favors a pituitary macroadenoma. A meningioma or less likely aneurysm could also have a similar appearance. Nonemergent brain/pituitary MRI is recommended for confirmation. Electronically signed by: Atnhony Marcial M.D. 09/15/2016 9:48 PM Dictated Date/Time: 09/15/2016 9:43 PM
--- NOTE | 2016-09-15 21:55 | DIAGNOSTIC IMAGING REPORT ---
CERVICAL SPINE CT CT DOSE: 2902.43 mGy.cm HISTORY: Neck pain. fall TECHNIQUE: Multiaxial CT images of the cervical spine were performed and reformatted in the sagittal and coronal plane without the use of contrast. COMPARISON: None. FINDINGS: No fractures. No subluxation. Prevertebral soft tissues and the C1-C2 interval are intact. No pneumothorax. Moderate disc space narrowing at C5-C6 and C6-C7. IMPRESSION: No fractures within the cervical spine. Electronically signed by: Anthony Marcial M.D. 09/15/2016 9:54 PM Dictated Date/Time: 09/15/2016 9:48 PM
[2016-09-15 21:58] LABS: ALT/SGPT 52 U/L (12-78); BLOOD UREA NITROGEN 41 mg/dl (7-18); BUN/CREATININE RATIO 31.8 (10-20); CARBON DIOXIDE 28 mmol/L (21-32); CHLORIDE 106 mmol/L (98-107); GLUCOSE 120 mg/dl (70-99); MAGNESIUM 2.2 mg/dl (1.8-2.4); POTASSIUM 3.5 mmol/L (3.5-5.1); SODIUM 143 mmol/L (136-145)
[2016-09-15] MEDS ORDERED: ONDANSETRON INJ 2 MG/ML 2 ML VIAL IV STA (22:03)
--- NOTE | 2016-09-15 22:03 | DIAGNOSTIC IMAGING REPORT ---
LUMBAR SPINE CT CT DOSE: HISTORY: Low back pain. fall TECHNIQUE: Multiaxial CT images of the lumbar spine were performed and reformatted in the sagittal and coronal plane without the use of contrast. COMPARISON: None. FINDINGS: There is a 2 cm gastrohepatic lymph node. Mild central canal narrowing within the lower lumbar spine due to disc bulges and ligamentum and facet hypertrophy. Mild to moderate facet degenerative changes seen within the lower lumbar spine. Moderate disc space narrowing at L2-L3 and severe disc space narrowing at L5-S1. There is mild compression fracture within the L1 vertebral body which involves both the superior and inferior endplates. There is 2 mm of retropulsion of the posterior cortex. No additional fractures within the lumbar spine. IMPRESSION: Age-indeterminate mild compression fracture at L1 which demonstrates 2 mm of retropulsion of the posterior cortex. No significant central canal narrowing. A 2 cm gastrohepatic lymph node which is considered pathologically enlarged. Follow-up nonemergent abdominal CT is recommended for further evaluation. Electronically signed by: Anthony Marcial M.D. 09/15/2016 10:02 PM Dictated Date/Time: 09/15/2016 9:54 PM
[2016-09-15 22:05] LABS: URINE APPEARANCE CLEAR (CLEAR); URINE BILIRUBIN NEG (NEG); URINE COLOR YELLOW; URINE NITRITE NEG (NEG); URINE PH 6.5 (4.5-7.5); URINE SPECIFIC GRAVITY 1.018 (1.000-1.030); UROBILINOGEN NEG (NEG)
[2016-09-15 22:07] LABS: ALKALINE PHOSPHATASE 130 U/L (45-117); AST/SGOT 45 U/L (15-37); CKMB/CK RATIO 1.9 (0-3.0)
[2016-09-15 22:08] LABS: MANUAL MICROSCOPIC REQUIRED? NO; REVIEW REQ? NO
[2016-09-15] MEDS ORDERED: MoRPHine SULFATE 4 MG/ML 1 ML CARP\\VIAL IV PRN (22:15)
[2016-09-15 22:30] LABS: CALCIUM 8.4 mg/dl (8.5-10.1)
--- NOTE | 2016-09-15 22:40 | DIAGNOSTIC IMAGING REPORT ---
CHEST ONE VIEW PORTABLE HISTORY: EVALUATE ALTERED MENTAL STATUS/WEAKNESS COMPARISON: Chest 08/27/2016. FINDINGS: No focal lung consolidations to suggest pneumonia. No evidence for pulmonary edema. The heart remains mildly enlarged. Tortuous thoracic aorta. No pleural effusions. No pneumothorax. IMPRESSION: Stable mild cardiomegaly. No acute process within the chest. Electronically signed by: Anthony Marcial M.D. 09/15/2016 10:39 PM Dictated Date/Time: 09/15/2016 10:38 PM
[2016-09-15] MEDS ORDERED: PRED10TA PO (22:42)
[2016-09-15 23:06] LABS: MEAN PLATELET VOLUME 11.5 fL (7.4-10.4); PLATELET COUNT 64 K/uL (130-400)
[2016-09-15 23:32] LABS: BASO % 0.1 %; BASO ABS # 0.01 K/uL (0-0.2); COMPLETE YES; EOS % 0.9 %; HYPERSEGMENTED POLYS 1+; IG% 0.4 %; LYMPH ABS # 0.84 K/uL (1.2-3.4); MONO % 6.6 %; OVALOCYTES 2+
[2016-09-16] VITALS (8 sets, daily range): BP systolic 147–190; BP diastolic 82–93; PULSE 59–84; TEMP 36.6–36.8; O2SAT 94–97; Ht 175.3 cm; Wt 81.1 kg
[2016-09-16] MEDS ORDERED: ALUMINUM/MAGNESIUM/SIMETH (MAALOX MAX) 30 ML UDC PO PRN
[2016-09-16] MEDS ORDERED: POLYETHYLENE (MIRALAX) 17 GM PACK PO PRN
--- NOTE | 2016-09-16 03:10 | HISTORY & PHYSICAL EXAMINATION ---
DATE OF ADMISSION: 09/15/2016 CHIEF COMPLAINT: Status post fall. HISTORY OF PRESENT ILLNESS: This 81-year-old male with past medical history significant for CAD, 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 The patient lives alone. Daughter is helping. He also has back problem and is following with [facility] and he was on prednisone taper, supposed to finish it in couple of days.He also has a right knee shot for chondrocalcinosis due to pyrophosphate crystals. He walks with the help of a walker and today in the bathroom had a mechanical fall and fell down and was brought to the hospital and was found to have compression fracture.Complaints of back pain. Denies any chest pain, no shortness of breath, no cough, no nausea, no vomiting. Has some dizziness. He has some vision problems. Normal bowel and bladder movements. Appetite is okay. Currently resting comfortably and hemodynamically stable. ALLERGIES: LISINOPRIL. PAST MEDICAL HISTORY: As mentioned above. PAST SURGICAL HISTORY: EGDs and colonoscopies. MEDICATIONS: The patient is on Tylenol 325 mg p.o. q. 6 hours p.r.n., omeprazole 20 mg p.o. daily, sodium bicarbonate 650 mg p.o. daily, levothyroxine 75 mcg p.o. daily, amlodipine 2.5 mg p.o. daily, ferrous sulfate 325 mg p.o. b.i.d., magnesium oxide 400 mg p.o. b.i.d., allopurinol 100 mg p.o. every other day, Flomax 0.4 mg p.o. daily, Coreg 12.5 mg p.o. b.i.d., prednisone taper, Lipitor 40 mg p.o. at bedtime. FAMILY HISTORY: Significant for mother and father had heart disease SOCIAL HISTORY: . Former smoker, quit in 1971. No alcohol use. No drug use. Currently lives alone. REVIEW OF SYSTEMS: As per HPI. Rest of review of systems negative. PHYSICAL EXAMINATION: GENERAL: The patient is old and frail, not in distress. VITAL SIGNS: Temperature 36.6, pulse 83, respiratory rate 14, blood pressure 127/90, oxygen 92% room air. HEENT: No pallor, no icterus. Pupils equal, round, and reactive to light. NECK: No JVD, no neck masses, no carotid bruits. CARDIOVASCULAR: S1, S2 heard, regular rate and rhythm, no murmur, no gallop. RESPIRATORY SYSTEM: Clear to auscultation bilaterally. No wheezing, no crackles. ABDOMEN: Soft. Bowel sounds present. Nontender. No distention. CENTRAL NERVOUS SYSTEM: Cranial nerves II through XII grossly intact. MUSCULOSKELETAL: Some spinal tenderness in the lumbar region. Straight leg raise test negative. LABORATORY DATA: WBC 13.9, hemoglobin 11.6, hematocrit was 36.6, platelets 64. Sodium 143, potassium 3.5, chloride 106, bicarbonate 28, BUN 41, creatinine 1.3, serum glucose 120, calcium 8.4, phosphorus 3, magnesium 2.2, total bilirubin 3, direct bilirubin 0.4, AST 45, ALT 52, alkaline phosphatase 130, total creatine kinase 68, troponin I less than 0.015. BNP 1896. TSH 3.9, lipase 133. PT 12.7, INR 1.2, PTT 27.4. Urinalysis negative. Lumbar spine CT shows age indeterminate mild compression fracture at L1, which demonstrated 2 mm of retropulsion of the posterior cortex, no significant central canal narrowing, a 2 cm gastrohepatic lymph node which is pathologically enlarged, follow up nonemergent abdominal CT is recommended for further evaluation. CT of the head, no acute intracranial abnormality, atrophic microvascular ischemic changes, a 2.6 cm suprasellar mass .This favours pituitary macroadenoma.A meningioma, or less likely aneurysm could have a similar appearance, nonemergent brain pituitary MRI is recommended for confirmation. Chest x-ray stable mild cardiomegaly. No acute process in the chest. Cervical spine CT, no fractures within cervical spine. ASSESSMENT AND PLAN: 1. A 81-year-old male who presents with fall and has a compression fracture in the L1 region. We will admit to medical floor. We will control the pain. PT, OT and orthotics consulted for further recommendations. 2. Gastrohepatic lymph node 2 cm on the lumbar spine CT, will get a CT of the abdomen and pelvis. 3. 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 We will get MRI of the head and follow on the results. 4. Chronic kidney disease, stage 3-IV, his creatinine is 1.3. The patient also has acidosis, on bicarbonate tablets and follows with nephrology as an outpatient. 5. Hypothyroidism. Continue Synthroid. 6. Hypertension, on amlodipine and Coreg. Follow the blood pressure in the hospital. 7. History of hyperlipidemia. Continue statin. 8. Gastroesophageal reflux disease, continue Prilosec. 9. History of liver cirrhosis thought to be secondary to fatty liver and history of portal hypertension and gastro enteropathy, has a history of chronic gastrointestinal bleeding thought from AVMs or enteropathy. Currently, hemoglobin stable on iron tablets, which we will continue. 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 We will follow the labs. 10. Prediabetes. We will follow the HbA1c levels, diabetic diet. 11. Benign prostatic hypertrophy, continue Flomax. 12. Gout, on allopurinol. 13. Deep venous thrombosis prophylaxis heparin subq. DISPOSITION: Monitor on the medical floor. PT, OT and social service to help with discharge planning. Code status DNR. MTDD
[2016-09-16] MEDS: LEVOTHYROXINE 75 MCG TAB PO SCH (05:37)
[2016-09-16 07:26] LABS: HEMATOCRIT 29.9 % (42-52); MEAN CELL VOLUME 89.8 fL (80-100); MEAN CORPUSCULAR HEMOGLOBIN 28.8 pg (25-34); MEAN CORPUSCULAR HGB CONC 32.1 g/dl (32-36); RED BLOOD COUNT 3.33 M/uL (4.7-6.1); WHITE BLOOD COUNT 8.17 K/uL (4.8-10.8)
[2016-09-16 07:47] LABS: MEAN PLATELET VOLUME 10.9 fL (7.4-10.4); PLATELET COUNT 36 K/uL (130-400)
[2016-09-16 08:05] LABS: BUN/CREATININE RATIO 30.2 (10-20); CALCIUM 7.7 mg/dl (8.5-10.1); CREATININE 1.3 mg/dl (0.60-1.40); MAGNESIUM 2.2 mg/dl (1.8-2.4); POTASSIUM 3.6 mmol/L (3.5-5.1)
[2016-09-16 08:57] LABS: COMPLETE YES; EOS % 0.5 %; IG% 0.1 %; LYMPH % 7.7 %; LYMPH ABS # 0.63 K/uL (1.2-3.4); MONO % 7.3 %; NEUT % 84.4 %
[2016-09-16] MEDS ORDERED: HEPARIN SOD 5000 UNIT/0.5 ML CARP SQ SCH ×2 (09:00)
[2016-09-16] MEDS ORDERED: FERROUS SULFATE 325 MG TAB PO SCH (09:00)
[2016-09-16] MEDS: AMLODIPINE BESYLATE 5 MG TAB PO SCH (09:24)
[2016-09-16] MEDS: SODIUM BICARBONATE 650 MG TAB PO SCH (09:25)
[2016-09-16] MEDS: FERROUS SULFATE 325 MG TAB PO SCH ×2 (09:25→18:15)
[2016-09-16] MEDS: PANTOprazole SOD 40 MG TAB PO SCH (09:25)
[2016-09-16] MEDS: MAGNESIUM OXIDE 400 MG TAB PO SCH ×2 (09:25→21:41)
[2016-09-16] MEDS: ALLOPURINOL 100 MG TAB PO SCH (09:25)
[2016-09-16] MEDS: ACETAMINOPHEN 325 MG TAB PO PRN (09:41)
[2016-09-16] MEDS: CARVEDILOL 12.5 MG TAB PO SCH ×2 (12:35→21:39)
--- NOTE | 2016-09-16 14:01 | ORTHOPEDIC CONSULTATION ---
DATE OF CONSULTATION: 09/16/2016 CHIEF COMPLAINT: Back pain. HISTORY OF PRESENT ILLNESS: This is a 81-year-old male who presents with onset of back pain. His significant medical history of includes liver cirrhosis secondary to alcoholic fatty liver. Portal hypertension, aFib, hypothyroidism, thrombocytopenia, chronic kidney disease, etc. He states that he lives with his daughter, but when getting up off the toilet yesterday he fell. He states he struck his back during the fall. Now presents to the hospital with evidence of compression fracture of L1. PHYSICAL EXAMINATION: GENERAL: He is alert and oriented. EXTREMITIES: He demonstrates excellent strength to testing lower extremities. Sensory is symmetric and intact. He is able to roll over for me without significant discomfort. I do not appreciate any abnormal skin markings. IMAGING: CAT scan does demonstrate multilevel spondylosis with a modest compression fracture of L1. ASSESSMENT: L1 compression fracture. PLAN: At this time, clearly he is a very poor surgical candidate, would like to avoid any anesthetic if possible. I will consult orthotics for a TLSO brace to be worn when he is out of bed and begins ambulation. Ultimately, he may be a candidate for [facility].
[2016-09-16] MEDS: MoRPHine SULFATE 4 MG/ML 1 ML CARP\\VIAL IV PRN ×3 (14:10→23:59)
--- NOTE | 2016-09-16 17:13 | DIAGNOSTIC IMAGING REPORT ---
CT SCAN OF THE ABDOMEN AND PELVIS WITHOUT IV CONTRAST CLINICAL HISTORY: Back pain. Lymphadenopathy. COMPARISON STUDY: Abdominal CT dated 10/18/2010. TECHNIQUE: CT scan of the abdomen and pelvis is performed from the lung bases to the proximal femora. Images are reviewed in the axial, sagittal, and coronal planes. IV contrast was not administered for this examination as per the referring clinician. Note that the examination was performed in significantly suboptimal fashion without oral and IV contrast. Automated dose control exposure was utilized. CT DOSE: 427.04 mGy.cm FINDINGS: Lung bases: The heart is enlarged and without pericardial effusion. There are coronary artery calcifications. There are small pleural effusions with bibasilar atelectasis. There is a small hiatal hernia. Paraesophageal varices are noted. Liver: The unenhanced liver is cirrhotic in morphology and heterogeneous in attenuation. There is no intrahepatic biliary ductal dilatation. There has been recanalization of the periumbilical vein. Gallbladder: Unremarkable. Spleen: The spleen is markedly enlarged, measuring 18.1 cm in length. Pancreas: The unenhanced pancreas is atrophic. Mild peripancreatic stranding and fluid is suggested. Adrenal glands: Unremarkable. Kidneys: The unenhanced kidneys are atrophic and without hydronephrosis. There are no renal calculi identified. A 1.6 cm exophytic cyst arises from the upper pole of the right kidney. Abdominal vasculature: The abdominal aorta is normal in course and caliber noting advanced atherosclerotic calcification. Bowel: The small bowel and colon are normal in course and caliber. There is moderate sigmoid diverticulosis without CT evidence of acute diverticulitis. The appendix is well-visualized and normal. Peritoneum: There is trace perihepatic ascites. There is trace free fluid in the pelvis. No intraperitoneal free air is seen. There is a fat and fluid containing umbilical hernia. Lymphadenopathy: None. Pelvic viscera: The prostate gland is enlarged, measuring 5.1 cm in transverse diameter. The bladder is normal as visualized. Skeletal structures: The skeletal structures are osteopenic. There is a severe an age indeterminant compression deformity of L1, new from 2010. Mild paravertebral edema is noted around L1. There is only minimal retropulsion of fragments with no significant acquired compromise of the central canal. Moderate lumbosacral spondylosis is observed. No lytic or blastic lesions are seen. IMPRESSION: 1. Suboptimal examination without oral and IV contrast. 2. Cirrhotic liver morphology with evidence of portal hypertension including marked splenomegaly, esophageal varices, and trace abdominopelvic ascites. 3. There is a severe and age indeterminant but acute appearing compression fracture of L1. Correlate for point tenderness at this site. 4. Mild peripancreatic stranding and trace fluid is suggested. This is nonspecific. Correlate clinically and with lipase levels for evidence of acute pancreatitis. 5. Cardiomegaly and small pleural effusions. 6. Moderate sigmoid diverticulosis without CT evidence of acute diverticulitis. 7. Additional findings as above. Electronically signed by: Edu Box M.D. 09/16/2016 5:12 PM Dictated Date/Time: 09/16/2016 5:01 PM
--- NOTE | 2016-09-16 17:41 | Progress Note ---
Medicine Progress Note Date & Time of Visit: September 16, 2016 at 17:15. Subjective Pt was seen and examined Lying in bed with no acute distress Pt said that he is having pain in his lower back he said that the pain med seems to help Denies any chest pain, palpitation and SOB Objective Last 8 Hrs Date Time Temp Pulse Resp B/P Pulse Ox O2 Delivery O2 Flow Rate FiO2 09/16/16 15:30 Room Air 09/16/16 15:29 36.8 59 18 174/86 97 Room Air 09/16/16 12:34 77 169/91 Physical Exam: General- No acute distress Head- atraumatic Eyes- PERRL, EOMI ENT- oropharynx clear Neck- supple, no JVD Lungs- clear to auscultation Heart- regular rhythm Abdomen- normal bowel sounds, soft Extremities- no calf tenderness Neuro- alert, oriented x 3; PERRL, EOMI Skin- warm & dry Laboratory Results: Last 24 Hours Test 09/15/16 20:45 09/15/16 21:50 09/16/16 06:55 09/16/16 08:05 White Blood Count 13.93 K/uL 8.17 K/uL Red Blood Count 4.06 M/uL 3.33 M/uL Hemoglobin 11.6 g/dL 9.6 g/dL Hematocrit 36.6 % 29.9 % Mean Corpuscular Volume 90.1 fL 89.8 fL Mean Corpuscular Hemoglobin 28.6 pg 28.8 pg Mean Corpuscular Hemoglobin Concent 31.7 g/dl 32.1 g/dl Platelet Count 64 K/uL 36 K/uL Mean Platelet Volume 11.5 fL 10.9 fL Neutrophils (%) (Auto) 86.0 % 84.4 % Lymphocytes (%) (Auto) 6.0 % 7.7 % Monocytes (%) (Auto) 6.6 % 7.3 % Eosinophils (%) (Auto) 0.9 % 0.5 % Basophils (%) (Auto) 0.1 % 0.0 % Neutrophils # (Auto) 11.97 K/uL 6.89 K/uL Lymphocytes # (Auto) 0.84 K/uL 0.63 K/uL Monocytes # (Auto) 0.92 K/uL 0.60 K/uL Eosinophils # (Auto) 0.13 K/uL 0.04 K/uL Basophils # (Auto) 0.01 K/uL 0.00 K/uL RDW Standard Deviation 56.9 fL 57.3 fL RDW Coefficient of Variation 17.4 % 17.4 % Immature Granulocyte % (Auto) 0.4 % 0.1 % Immature Granulocyte # (Auto) 0.06 K/uL 0.01 K/uL Hypersegmented Polys 1+ Ovalocytes 2+ Prothrombin Time 12.7 SECONDS Prothromb Time International Ratio 1.2 Activated Partial Thromboplast Time 27.4 SECONDS Partial Thromboplastin Ratio 1.1 Sodium Level 143 mmol/L 143 mmol/L Potassium Level 3.5 mmol/L 3.6 mmol/L Chloride Level 106 mmol/L 109 mmol/L Carbon Dioxide Level 28 mmol/L 27 mmol/L Anion Gap 9.0 mmol/L 7.0 mmol/L Blood Urea Nitrogen 41 mg/dl 39 mg/dl Creatinine 1.30 mg/dl 1.30 mg/dl Est Creatinine Clear Calc Drug Dose 46.1 ml/min 46.1 ml/min Estimated GFR () 60.1 60.1 Estimated GFR (Non- 51.9 51.9 BUN/Creatinine Ratio 31.8 30.2 Random Glucose 120 mg/dl 99 mg/dl Calcium Level 8.4 mg/dl 7.7 mg/dl Phosphorus Level 3.0 mg/dl Magnesium Level 2.2 mg/dl 2.2 mg/dl Total Bilirubin 3.0 mg/dl Direct Bilirubin 0.4 mg/dl Aspartate Amino Transf (AST/SGOT) 45 U/L Alanine Aminotransferase (ALT/SGPT) 52 U/L Alkaline Phosphatase 130 U/L Total Creatine Kinase 68 U/L Creatine Kinase MB 1.3 ng/ml Creatine Kinase MB Ratio 1.9 Troponin I < 0.015 ng/ml Pro-B-Type Natriuretic Peptide 1896 pg/ml Total Protein 6.7 gm/dl Albumin 3.4 gm/dl Lipase 133 U/L Thyroid Stimulating Hormone (TSH) 3.910 uIu/ml Urine Color YELLOW Urine Appearance CLEAR Urine pH 6.5 Urine Specific Tebbetts 1.018 Urine Protein NEG Urine Glucose (UA) NEG Urine Ketones NEG Urine Occult Blood NEG Urine Nitrite NEG Urine Bilirubin NEG Urine Urobilinogen NEG Urine Leukocyte Esterase NEG Red Blood Cell Morphology Unremarkable Bedside Glucose 96 mg/dl Test 09/16/16 12:54 5/15/17 16:59 Bedside Glucose 100 mg/dl 122 mg/dl Assessment & Plan Back Pain L1 Compression fracture due to fall CT showed Age-indeterminate mild compression fracture at L1 which demonstrates 2 mm of retropulsion of the posterior cortex Continue pain control Orthopedic consulted, No surgical intervention at this time because Pt is not a good surgical candidate Recommended TLSO brace to be worn when he is out of bed and begins ambulation Orthotic consulted pending Consider rehab Gastrohepatic lymph node Lumbar CT showed Gastrohepatic lymph nod [address] abd/pelvis pending Suprasellar Mass CT head showed 2.6 cm suprasellar mass. This favors a pituitary macroadenoma Asymptomatic MRI of the head pending CKD Creatine stable Hypothyroidism. Continue Synthroid Hypertension BP has been high Possible attribute to pain on amlodipine 2.5 mg and Coreg 12.5 mg BID Will increase amlodipine to 5 mg will start hydralazine PRN . Hyperlipidemia. Continue statin. GERD Continue Prilosec. 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 DVT px will d/c heparin subq due to drop on platelet Will do SCDs for now CODE STATUS FULL CODE Consultants: Orthopedic, Orthotic Current Inpatient Medications: Current Inpatient Medications Medications (Trade) Dose Ordered Sig/Med Route Start Time Stop Time Status Last Admin Dose Admin Acetaminophen (Tylenol Tab) 650 mg Q4H PRN PO 09/16/16 00:00 10/16/16 00:00 09/16/16 09:41 650 MG Al Hydrox/Mg Hydrox/Simethicone (Maalox Max Susp) 15 ml Q4H PRN PO 09/16/16 00:00 10/16/16 00:00 Magnesium Hydroxide (Milk Of Magnesia Susp) 30 ml Q6H PRN PO 09/16/16 00:00 10/16/16 00:00 Polyethylene (Miralax Powder Packet) 17 gm DAILY PRN PO 09/16/16 00:00 10/16/16 00:00 Ondansetron HCl (Zofran Inj) 4 mg Q6H PRN IV 09/16/16 00:00 10/16/16 00:00 Allopurinol (Zyloprim Tab) 100 mg Q2D PO 09/16/16 09:00 10/16/16 08:59 09/16/16 09:25 100 MG Amlodipine Besylate (Norvasc Tab) 2.5 mg DAILY PO 09/16/16 09:00 10/16/16 08:59 09/16/16 09:24 2.5 MG Atorvastatin Calcium (Lipitor Tab) 40 mg HS PO 09/16/16 21:00 10/16/16 20:59 Carvedilol (Coreg Tab) 12.5 mg BID@1200,2100 PO 09/16/16 12:00 10/16/16 11:59 09/16/16 12:35 12.5 MG Levothyroxine Sodium (Synthroid Tab) 75 mcg DAILYBB PO 09/16/16 06:00 10/16/16 05:59 09/16/16 05:37 75 MCG Prednisone (PredniSONE TAB) 10 mg Taper DAILY PO 09/16/16 09:00 09/19/16 08:59 09/16/16 09:24 10 MG Sodium Bicarbonate (Sodium Bicarbonate Tab) 650 mg DAILY PO 09/16/16 09:00 10/16/16 08:59 09/16/16 09:25 650 MG Tamsulosin HCl (Flomax Cap) 0.4 mg HS PO 09/16/16 21:00 10/16/16 20:59 Magnesium Oxide (Mag-Ox Tab) 400 mg BID PO 09/16/16 09:00 10/16/16 08:59 09/16/16 09:25 400 MG Pantoprazole Sodium (Protonix Tab) 40 mg QAM PO 09/16/16 09:00 10/16/16 08:59 09/16/16 09:25 40 MG Morphine Sulfate (MoRPHine SULFATE INJ) 3 mg Q3HWA PRN IV 09/16/16 00:00 09/30/16 00:00 09/16/16 14:10 3 MG Heparin Sodium (Porcine) (Heparin Sq 5000 Unit/0.5ml) 5,000 unit Q12 SQ 09/16/16 09:00 10/16/16 08:59 09/16/16 09:34 5,000 UNIT Ferrous Sulfate (Feosol Tab) 325 mg BID17 PO 09/16/16 09:00 10/16/16 08:59 09/16/16 09:25 325 MG
[2016-09-16] MEDS ORDERED: HydrALAZINE HCL 20 MG/ML VIAL IV. PRN (18:00)
[2016-09-16] MEDS: ONDANSETRON INJ 2 MG/ML 2 ML VIAL IV PRN (20:14)
[2016-09-16] MEDS: ATORVASTATIN 40 MG TAB PO SCH (21:40)
[2016-09-16] MEDS: TAMSULOSIN HCL 0.4 MG CAP PO SCH (21:40)
[2016-09-16] MEDS ORDERED: HydrALAZINE HCL 20 MG/ML VIAL IV. STA (22:41)
[2016-09-16] MEDS ORDERED: NURSING VERBAL MED ORDER ONE (22:45)
[2016-09-17] MEDS: ONDANSETRON INJ 2 MG/ML 2 ML VIAL IV PRN (01:45)
[2016-09-17] MEDS: LEVOTHYROXINE 75 MCG TAB PO SCH (05:45)
[2016-09-17] MEDS: MoRPHine SULFATE 4 MG/ML 1 ML CARP\\VIAL IV PRN (06:34)
[2016-09-17 07:09] VITALS: BP 157/79; PULSE 61; TEMP 36.6; O2SAT 94
[2016-09-17 07:14] LABS: HEMATOCRIT 33.1 % (42-52); MEAN CELL VOLUME 89.9 fL (80-100); MEAN CORPUSCULAR HEMOGLOBIN 27.4 pg (25-34); MEAN CORPUSCULAR HGB CONC 30.5 g/dl (32-36); RED BLOOD COUNT 3.68 M/uL (4.7-6.1); WHITE BLOOD COUNT 12.76 K/uL (4.8-10.8)
[2016-09-17 07:27] LABS: MEAN PLATELET VOLUME 10.7 fL (7.4-10.4); PLATELET COUNT 43 K/uL (130-400)
--- NOTE | 2016-09-17 07:34 | DIAGNOSTIC IMAGING REPORT ---
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 COMPARISON STUDY: Head CT 09/15/2016. FINDINGS: There is no hematoma, midline shift, or acute infarct. The paranasal sinuses are clear. The mastoid air cells are clear. The ventricles and sulci demonstrate mild age-related involutional changes. Scattered foci of T2 hyperintensity seen within the periventricular and subcortical white matter are nonspecific but suggestive of moderate microvascular ischemic changes. The major vascular flow voids at the skull base are well-maintained. There are few punctate old lacunar infarcts in the bilateral cerebellar hemispheres. Confirmation of a 2.4 x 2.4 x 2.3 cm suprasellar mass. This is slightly T2 hyperintense and T1 hypointense. This appears to extend into the right cavernous sinus. This abuts and displaces the undersurface of the optic chiasm. No hydrocephalus. No aneurysm. IMPRESSION: 1. No acute intracranial abnormality. 2. Confirmation of a 2.4 x 2.4 x 2.3 cm suprasellar mass. This favors a pituitary macroadenoma. No aneurysm. 3. Atrophy and microvascular ischemic changes are again noted. Electronically signed by: Anthony Marcial M.D. 09/17/2016 7:32 AM Dictated Date/Time: 09/17/2016 7:26 AM
[2016-09-17 07:37] LABS: BASO % 0.1 %; BASO ABS # 0.01 K/uL (0-0.2); COMPLETE YES; EOS % 0.6 %; IG% 0.4 %; LYMPH % 7.8 %; MONO % 4.8 %; NEUT % 86.3 %
[2016-09-17] MEDS: FERROUS SULFATE 325 MG TAB PO SCH ×2 (07:44→18:04)
[2016-09-17 07:45] LABS: BUN/CREATININE RATIO 27.7 (10-20); CALCIUM 8.2 mg/dl (8.5-10.1); CREATININE 1.5 mg/dl (0.60-1.40); MAGNESIUM 2.5 mg/dl (1.8-2.4); POTASSIUM 3.5 mmol/L (3.5-5.1)
[2016-09-17] MEDS: SODIUM BICARBONATE 650 MG TAB PO SCH (07:45)
[2016-09-17] MEDS: AMLODIPINE BESYLATE 5 MG TAB PO SCH (07:45)
[2016-09-17] MEDS: PANTOprazole SOD 40 MG TAB PO SCH (07:45)
[2016-09-17] MEDS: MAGNESIUM OXIDE 400 MG TAB PO SCH ×2 (07:47→21:34)
[2016-09-17 07:50] LABS: ESTIMATED AVERAGE GLUCOSE 94 mg/dl; HA1C FLAG Normal (Normal)
[2016-09-17] MEDS: CARVEDILOL 12.5 MG TAB PO SCH ×2 (12:07→21:33)
[2016-09-17 14:11] LABS: PROLACTIN 13.5 ng/mL
--- NOTE | 2016-09-17 14:41 | Progress Note ---
Internal Med Progress Note Date of Service: September 17, 2016. Provider Documentation: SUBJECTIVE: The patient was seen and examined in presence fo the Daughter OBJECTIVE: Vital Signs-as noted below Exam: General-No distress at rest Eyes-normal ENT-normal Neck-Supple Lungs-decreased breath sound bilaterally Heart-Regular,no murmur Abdomen-benign,no masses,bowel sound present Extremities-Trace edema bilaterally Neuro-AAOx3 Generally weak Lab data as noted below. 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 CKD Creatine stable Hypothyroidism. Continue Synthroid Hypertension BP has been high Possible attribute to pain On amlodipine 2.5 mg and Coreg 12.5 mg BID Increase amlodipine to 5 mg Start hydralazine PRN . Hyperlipidemia. Continue statin. GERD Continue Prilosec. 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 Stable otherwise BPH Continue Flomax labs. DVT px will d/c heparin subq due to drop on platelet Will do SCDs for now CODE STATUS FULL CODE Consultants: Orthopedic, Orthotic And Neurology Vital Signs: Date Time Temp Pulse Resp B/P Pulse Ox O2 Delivery O2 Flow Rate FiO2 09/17/16 16:15 94 Room Air 09/17/16 15:22 36.5 60 17 132/75 94 Room Air 09/17/16 07:40 Room Air 09/17/16 07:09 36.6 61 18 157/79 94 Room Air 09/16/16 23:55 Room Air 09/16/16 23:35 36.7 59 20 171/89 96 Room Air 09/16/16 21:38 63 190/90 09/16/16 21:35 59 187/88 Lab Results: Results Past 24 Hours Test 09/16/16 19:47 09/17/16 06:40 09/17/16 12:30 09/17/16 15:04 Range/Units Bedside Glucose 166 70-99 mg/dl White Blood Count 12.76 4.8-10.8 K/uL Red Blood Count 3.68 4.7-6.1 M/uL Hemoglobin 10.1 14.0-18.0 g/dL Hematocrit 33.1 42-52 % Mean Corpuscular Volume 89.9 80-100 fL Mean Corpuscular Hemoglobin 27.4 25-34 pg Mean Corpuscular Hemoglobin Concent 30.5 32-36 g/dl Platelet Count 43 130-400 K/uL Mean Platelet Volume 10.7 7.4-10.4 fL Neutrophils (%) (Auto) 86.3 % Lymphocytes (%) (Auto) 7.8 % Monocytes (%) (Auto) 4.8 % Eosinophils (%) (Auto) 0.6 % Basophils (%) (Auto) 0.1 % Neutrophils # (Auto) 11.01 1.4-6.5 K/uL Lymphocytes # (Auto) 1.00 1.2-3.4 K/uL Monocytes # (Auto) 0.61 0.11-0.59 K/uL Eosinophils # (Auto) 0.08 0-0.5 K/uL Basophils # (Auto) 0.01 0-0.2 K/uL RDW Standard Deviation 57.2 36.4-46.3 fL RDW Coefficient of Variation 17.5 11.5-14.5 % Immature Granulocyte % (Auto) 0.4 % Immature Granulocyte # (Auto) 0.05 0.00-0.02 K/uL Sodium Level 146 136-145 mmol/L Potassium Level 3.5 3.5-5.1 mmol/L Chloride Level 112 98-107 mmol/L Carbon Dioxide Level 26 21-32 mmol/L Anion Gap 8.0 3-11 mmol/L Blood Urea Nitrogen 42 7-18 mg/dl Creatinine 1.50 0.60-1.40 mg/dl Est Creatinine Clear Calc Drug Dose 40.0 ml/min Estimated GFR () 50.6 Estimated GFR (Non- 43.7 BUN/Creatinine Ratio 27.7 10-20 Random Glucose 96 70-99 mg/dl Estimated Average Glucose 94 mg/dl Hemoglobin A1c 4.9 4.5-5.6 % Calcium Level 8.2 8.5-10.1 mg/dl Magnesium Level 2.5 1.8-2.4 mg/dl Free Thyroxine 1.08 0.80-1.60 ng/dl Follicle Stimulating Hormone 3.26 IU/L Luteinizing Hormone 0.15 IU/L Prolactin 13.50 ng/mL Random Cortisol 27.24 mcg/dl Ammonia 70.0 11-32 umol/L
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
[2016-09-17 15:22] VITALS: BP 132/75; PULSE 60; TEMP 36.5; O2SAT 94
[2016-09-17 16:15] VITALS: O2SAT 94
[2016-09-17 21:31] VITALS: BP 166/86; PULSE 67
[2016-09-17] MEDS: TAMSULOSIN HCL 0.4 MG CAP PO SCH (21:33)
[2016-09-17] MEDS: ATORVASTATIN 40 MG TAB PO SCH (21:33)
[2016-09-17 22:52] VITALS: BP 148/81; PULSE 62; TEMP 36.6; O2SAT 95
[2016-09-18] MEDS: ACETAMINOPHEN 325 MG TAB PO PRN ×2 (05:47→23:28)
[2016-09-18] MEDS: LEVOTHYROXINE 75 MCG TAB PO SCH (05:47)
[2016-09-18 07:48] LABS: HEMATOCRIT 27.6 % (42-52); MEAN CELL VOLUME 90.8 fL (80-100); MEAN CORPUSCULAR HEMOGLOBIN 29.6 pg (25-34); MEAN CORPUSCULAR HGB CONC 32.6 g/dl (32-36); RED BLOOD COUNT 3.04 M/uL (4.7-6.1); WHITE BLOOD COUNT 7.08 K/uL (4.8-10.8)
[2016-09-18 07:56] LABS: MEAN PLATELET VOLUME 11.5 fL (7.4-10.4); PLATELET COUNT 32 K/uL (130-400)
[2016-09-18 07:58] VITALS: BP 163/84; PULSE 70; TEMP 36.6; O2SAT 95
[2016-09-18 08:11] LABS: BASO % 0.1 %; BASO ABS # 0.01 K/uL (0-0.2); COMPLETE YES; EOS % 1.6 %; LYMPH % 10.9 %; LYMPH ABS # 0.77 K/uL (1.2-3.4); MONO % 7.2 %; NEUT % 80.2 %
[2016-09-18 08:18] LABS: BUN/CREATININE RATIO 28.3 (10-20); CREATININE 1.6 mg/dl (0.60-1.40); MAGNESIUM 2.5 mg/dl (1.8-2.4); POTASSIUM 3.5 mmol/L (3.5-5.1)
[2016-09-18 08:34] LABS: CALCIUM 7.9 mg/dl (8.5-10.1)
[2016-09-18] MEDS: MAGNESIUM OXIDE 400 MG TAB PO SCH ×2 (08:41→20:42)
[2016-09-18] MEDS: PANTOprazole SOD 40 MG TAB PO SCH (08:48)
[2016-09-18] MEDS: FERROUS SULFATE 325 MG TAB PO SCH ×2 (08:48→18:12)
[2016-09-18] MEDS: ALLOPURINOL 100 MG TAB PO SCH (08:48)
[2016-09-18] MEDS: AMLODIPINE BESYLATE 5 MG TAB PO SCH (08:48)
[2016-09-18] MEDS: SODIUM BICARBONATE 650 MG TAB PO SCH (08:48)
[2016-09-18] MEDS: CARVEDILOL 12.5 MG TAB PO SCH ×2 (12:00→20:41)
[2016-09-18 12:37] VITALS: BP 136/72; PULSE 55
--- NOTE | 2016-09-18 14:15 | Progress Note ---
Internal Med Progress Note Date of Service: September 18, 2016. Provider Documentation: SUBJECTIVE: The patient was seen and examined in presence fo the Daughter Much better today OOB in a chair Denies any symptoms Going for PT OBJECTIVE: Vital Signs-as noted below Exam: General-No distress at rest Eyes-normal ENT-normal Neck-Supple Lungs-decreased breath sound bilaterally Heart-Regular,no murmur Abdomen-benign,no masses,bowel sound present Extremities-Trace edema bilaterally Neuro-AAOx3 Generally weak Lab data as noted below. ASSESSMENT & PLAN: Back Pain L1 Compression fracture due to fall CT showed Age-indeterminate mild compression fracture at L1 which demonstrates 2 mm of retropulsion of the posterior cortex Orthopedic consulted, No surgical intervention at this time because Pt is not a good surgical candidate Recommended TLSO brace to be worn when he is out of bed and begins ambulation Orthotic consulted pending Continue PT/OT Likely to need Rehab Getting PT with the brace ON and doing good Pituitary Macroadenoma CT head showed 2.6 cm suprasellar mass. This favors a pituitary macroadenoma MRI-confirmatory Asymptomatic -no specific [place] symptoms Neurology consulted Waiting for the test results So far those are negative Will need OP Ophthalmology and probably Neurosurgery appointment Gastrohepatic lymph node Lumbar CT showed Gastrohepatic lymph nod [address] abd/pelvis ::Cirrhotic liver morphology with evidence of portal hypertension including marked splenomegaly, esophageal varices, and trace abdominopelvic ascites. CKD Creatine stable Hypothyroidism. Continue Synthroid Hypertension BP has been high Possible attribute to pain On amlodipine 2.5 mg and Coreg 12.5 mg BID Increase amlodipine to 5 mg Start hydralazine PRN Stable now . Hyperlipidemia. Continue statin. GERD Continue Prilosec. 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 Stable otherwise BPH Continue Flomax labs. DVT px will d/c heparin subq due to drop on platelet Will do SCDs for now CODE STATUS FULL CODE Consultants: Orthopedic, Orthotic And Neurology Likely to discharge to a Rehab Facility Vital Signs: Date Time Temp Pulse Resp B/P Pulse Ox O2 Delivery O2 Flow Rate FiO2 09/18/16 12:37 55 136/72 09/18/16 07:58 36.6 70 16 163/84 95 Room Air 09/18/16 07:25 Room Air 09/17/16 23:20 Room Air 09/17/16 22:52 36.6 62 14 148/81 95 Room Air 09/17/16 21:31 67 166/86 09/17/16 16:15 94 Room Air 09/17/16 15:22 36.5 60 17 132/75 94 Room Air Lab Results: Results Past 24 Hours Test 09/17/16 15:04 09/18/16 07:39 Range/Units Ammonia 70.0 11-32 umol/L White Blood Count 7.08 4.8-10.8 K/uL Red Blood Count 3.04 4.7-6.1 M/uL Hemoglobin 9.0 14.0-18.0 g/dL Hematocrit 27.6 42-52 % Mean Corpuscular Volume 90.8 80-100 fL Mean Corpuscular Hemoglobin 29.6 25-34 pg Mean Corpuscular Hemoglobin Concent 32.6 32-36 g/dl Platelet Count 32 130-400 K/uL Mean Platelet Volume 11.5 7.4-10.4 fL Neutrophils (%) (Auto) 80.2 % Lymphocytes (%) (Auto) 10.9 % Monocytes (%) (Auto) 7.2 % Eosinophils (%) (Auto) 1.6 % Basophils (%) (Auto) 0.1 % Neutrophils # (Auto) 5.68 1.4-6.5 K/uL Lymphocytes # (Auto) 0.77 1.2-3.4 K/uL Monocytes # (Auto) 0.51 0.11-0.59 K/uL Eosinophils # (Auto) 0.11 0-0.5 K/uL Basophils # (Auto) 0.01 0-0.2 K/uL RDW Standard Deviation 58.1 36.4-46.3 fL RDW Coefficient of Variation 17.5 11.5-14.5 % Immature Granulocyte % (Auto) 0.0 % Immature Granulocyte # (Auto) 0.00 0.00-0.02 K/uL Sodium Level 141 136-145 mmol/L Potassium Level 3.5 3.5-5.1 mmol/L Chloride Level 107 98-107 mmol/L Carbon Dioxide Level 28 21-32 mmol/L Anion Gap 6.0 3-11 mmol/L Blood Urea Nitrogen 45 7-18 mg/dl Creatinine 1.60 0.60-1.40 mg/dl Est Creatinine Clear Calc Drug Dose 37.5 ml/min Estimated GFR () 46.8 Estimated GFR (Non- 40.4 BUN/Creatinine Ratio 28.3 10-20 Random Glucose 78 70-99 mg/dl Calcium Level 7.9 8.5-10.1 mg/dl Magnesium Level 2.5 1.8-2.4 mg/dl
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
[2016-09-18 15:18] VITALS: BP 150/81; PULSE 56; TEMP 37; O2SAT 95
[2016-09-18 16:00] VITALS: O2SAT 95
[2016-09-18 20:40] VITALS: BP 126/67; PULSE 63
[2016-09-18] MEDS: TAMSULOSIN HCL 0.4 MG CAP PO SCH (20:41)
[2016-09-18] MEDS: ATORVASTATIN 40 MG TAB PO SCH (20:41)
[2016-09-18 22:55] VITALS: BP 145/73; PULSE 56; TEMP 36.4; O2SAT 95
[2016-09-19] MEDS: LEVOTHYROXINE 75 MCG TAB PO SCH (05:24)
[2016-09-19 07:29] VITALS: BP 150/70; PULSE 57; TEMP 36.4; O2SAT 95
[2016-09-19] MEDS: ACETAMINOPHEN 325 MG TAB PO PRN ×2 (08:39→16:53)
[2016-09-19] MEDS: FERROUS SULFATE 325 MG TAB PO SCH ×2 (08:40→16:46)
[2016-09-19] MEDS: MAGNESIUM OXIDE 400 MG TAB PO SCH ×2 (08:40→21:54)
[2016-09-19] MEDS: PANTOprazole SOD 40 MG TAB PO SCH (08:40)
[2016-09-19] MEDS: SODIUM BICARBONATE 650 MG TAB PO SCH (08:40)
[2016-09-19] MEDS: AMLODIPINE BESYLATE 5 MG TAB PO SCH (08:40)
--- NOTE | 2016-09-19 11:39 | Progress Note ---
Internal Med Progress Note Date of Service: September 19, 2016. Provider Documentation: SUBJECTIVE: The patient was seen and examined in presence fo the Daughter Much better today OOB in a chair Denies any symptoms except some weakness Going for PT and doing reasonably well OBJECTIVE: Vital Signs-as noted below Exam: General-No distress at rest Genarally weak Eyes-normal ENT-normal Neck-Supple Lungs-decreased breath sound bilaterally Heart-Regular,no murmur Abdomen-benign,no masses,bowel sound present Extremities-Trace edema bilaterally Neuro-AAOx3 Generally weak No focal neuro deficit Lab data as noted below. 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 Continue Synthroid Hypertension BP has been high Possible attribute to pain On amlodipine 2.5 mg and Coreg 12.5 mg BID Increase amlodipine to 5 mg Start hydralazine PRN Stable now and improved . Hyperlipidemia. Continue statin. GERD Continue Prilosec. 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 Stable otherwise BPH Continue Flomax labs. DVT px will d/c heparin subq due to drop on platelet Will do SCDs for now CODE STATUS FULL CODE Consultants: Orthopedic, Orthotic And Neurology Likely to discharge to a Rehab Facility when a bed is available Vital Signs: Date Time Temp Pulse Resp B/P Pulse Ox O2 Delivery O2 Flow Rate FiO2 09/19/16 07:30 Room Air 09/19/16 07:29 36.4 57 16 150/70 95 Room Air 09/18/16 23:15 Room Air 09/18/16 22:55 36.4 56 18 145/73 95 Room Air 09/18/16 20:40 63 126/67 09/18/16 16:00 95 Room Air 09/18/16 15:18 37.0 56 16 150/81 95 Room Air 09/18/16 12:37 55 136/72
[2016-09-19] MEDS: CARVEDILOL 12.5 MG TAB PO SCH ×2 (12:00→21:55)
[2016-09-19 12:22] VITALS: BP 148/76; PULSE 63
[2016-09-19 12:23] VITALS: PULSE 59
[2016-09-19 15:13] VITALS: BP 143/70; PULSE 99; TEMP 36.4; O2SAT 98
[2016-09-19] MEDS: ATORVASTATIN 40 MG TAB PO SCH (21:54)
[2016-09-19 21:55] VITALS: BP 146/79; PULSE 102
[2016-09-19] MEDS: TAMSULOSIN HCL 0.4 MG CAP PO SCH (21:55)
[2016-09-19 22:59] VITALS: BP 133/74; PULSE 62; TEMP 36.7; O2SAT 94
[2016-09-20] MEDS: ACETAMINOPHEN 325 MG TAB PO PRN ×4 (00:47→21:38)
[2016-09-20] MEDS: LEVOTHYROXINE 75 MCG TAB PO SCH (05:47)
[2016-09-20 07:23] VITALS: BP_SYST 174; BP_SYST 184; BP_DIAS 85; BP_DIAS 93; PULSE 77; TEMP 36.3; O2SAT 96
[2016-09-20] MEDS: SODIUM BICARBONATE 650 MG TAB PO SCH (07:56)
[2016-09-20] MEDS: ALLOPURINOL 100 MG TAB PO SCH (07:56)
[2016-09-20] MEDS: AMLODIPINE BESYLATE 5 MG TAB PO SCH (07:56)
[2016-09-20] MEDS: PANTOprazole SOD 40 MG TAB PO SCH (07:56)
[2016-09-20] MEDS: MAGNESIUM OXIDE 400 MG TAB PO SCH ×2 (07:56→21:34)
[2016-09-20] MEDS: FERROUS SULFATE 325 MG TAB PO SCH ×2 (07:56→18:31)
[2016-09-20 11:43] VITALS: BP 134/75
[2016-09-20] MEDS: CARVEDILOL 12.5 MG TAB PO SCH ×2 (11:48→21:34)
[2016-09-20 15:11] VITALS: BP 136/73; PULSE 65; TEMP 36.4; O2SAT 94
--- NOTE | 2016-09-20 17:50 | Progress Note ---
Medicine Progress Note Date & Time of Visit: September 20, 2016 at 17:31. Subjective Pt was see and examined sitting in bed comfortable with no distress Pt said that the back brace helps, but it is not comfortable He said that he has been walking with PT denies any chest pain, palpitation and sob Objective Last 8 Hrs Date Time Temp Pulse Resp B/P Pulse Ox O2 Delivery O2 Flow Rate FiO2 09/20/16 16:05 Room Air 09/20/16 15:11 36.4 65 18 136/73 94 Room Air 09/20/16 11:43 134/75 Physical Exam: General- No acute distress Head- atraumatic Eyes- PERRL, EOMI ENT- oropharynx clear Neck- supple, no JVD Lungs- clear to auscultation Heart- regular rhythm Abdomen- normal bowel sounds, soft Extremities- no calf tenderness Neuro- alert, oriented x 3; PERRL, EOMI Skin- warm & dry Assessment & Plan Back Pain L1 Compression fracture due to fall CT showed Age-indeterminate mild compression fracture at L1 which demonstrates 2 mm of retropulsion of the posterior cortex Continue pain control Orthopedic consulted, No surgical intervention at this time because Pt is not a good surgical candidate Recommended TLSO brace to be worn when he is out of bed and begins ambulation Orthotic consulted Has been using the back brace, which helps Waiting for bed to go to [facility] for rehab Gastrohepatic lymph node Lumbar CT showed Gastrohepatic lymph nod [address] abd/pelvis showed 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 This favors a pituitary macroadenoma MRI of the head showed Confirmation of a 2.4 x 2.4 x 2.3 cm suprasellar mass. This favors a pituitary macroadenoma. Workup done for pituitary macroadenoma prolactin negative- no need for bromocriptine. (no need for medical management) Will need formal visual magdaleno by neuroophthalmology-[place] Will need OP Ophthalmology and Neurosurgery appointment Asymptomatic CKD Creatine stable Hypothyroidism. Continue Synthroid Hypertension BP stable Possible attribute to pain on amlodipine 5 mg and Coreg 12.5 mg BID Continue monitor BP Hyperlipidemia. Continue statin. GERD Continue Prilosec. Thrombocytopenia Mostly related to liver cirrhosis No signs of active bleeding continue monitor platelet Hx Liver Cirrhosis Stable BPH Continue Flomax labs. DVT px On SCDs due to thrombocytopenia CODE STATUS FULL CODE DISPOSITION Waiting for bed approval to transfer to [facility] for rehab. Consultants: Orthopedic Orthotic Neurology Current Inpatient Medications: Current Inpatient Medications Medications (Trade) Dose Ordered Sig/Med Route Start Time Stop Time Status Last Admin Dose Admin Acetaminophen (Tylenol Tab) 650 mg Q4H PRN PO 09/16/16 00:00 10/16/16 00:00 09/20/16 11:48 650 MG Al Hydrox/Mg Hydrox/Simethicone (Maalox Max Susp) 15 ml Q4H PRN PO 09/16/16 00:00 10/16/16 00:00 Magnesium Hydroxide (Milk Of Magnesia Susp) 30 ml Q6H PRN PO 09/16/16 00:00 10/16/16 00:00 Polyethylene (Miralax Powder Packet) 17 gm DAILY PRN PO 09/16/16 00:00 10/16/16 00:00 Ondansetron HCl (Zofran Inj) 4 mg Q6H PRN IV 09/16/16 00:00 10/16/16 00:00 09/17/16 01:45 4 MG Allopurinol (Zyloprim Tab) 100 mg Q2D PO 09/16/16 09:00 10/16/16 08:59 09/20/16 07:56 100 MG Atorvastatin Calcium (Lipitor Tab) 40 mg HS PO 09/16/16 21:00 10/16/16 20:59 09/19/16 21:54 40 MG Carvedilol (Coreg Tab) 12.5 mg BID@1200,2100 PO 09/16/16 12:00 10/16/16 11:59 09/20/16 11:48 12.5 MG Levothyroxine Sodium (Synthroid Tab) 75 mcg DAILYBB PO 09/16/16 06:00 10/16/16 05:59 09/20/16 05:47 75 MCG Sodium Bicarbonate (Sodium Bicarbonate Tab) 650 mg DAILY PO 09/16/16 09:00 10/16/16 08:59 09/20/16 07:56 650 MG Tamsulosin HCl (Flomax Cap) 0.4 mg HS PO 09/16/16 21:00 10/16/16 20:59 09/19/16 21:55 0.4 MG Magnesium Oxide (Mag-Ox Tab) 400 mg BID PO 09/16/16 09:00 10/16/16 08:59 09/20/16 07:56 400 MG Pantoprazole Sodium (Protonix Tab) 40 mg QAM PO 09/16/16 09:00 10/16/16 08:59 09/20/16 07:56 40 MG Morphine Sulfate (MoRPHine SULFATE INJ) 3 mg Q3HWA PRN IV 09/16/16 00:00 09/30/16 00:00 09/17/16 06:34 3 MG Ferrous Sulfate (Feosol Tab) 325 mg BID17 PO 09/16/16 09:00 10/16/16 08:59 09/20/16 07:56 325 MG Hydralazine HCl (HydrALAZINE INJ) 5 mg Q6 PRN IV. 09/16/16 18:00 10/16/16 17:59 09/16/16 21:39 5 MG Amlodipine Besylate (Norvasc Tab) 5 mg DAILY PO 09/18/16 09:00 10/18/16 08:59 09/20/16 07:56 5 MG
[2016-09-20] MEDS: TAMSULOSIN HCL 0.4 MG CAP PO SCH (21:34)
[2016-09-20] MEDS: ATORVASTATIN 40 MG TAB PO SCH (21:34)
[2016-09-20 23:05] VITALS: BP 142/79; PULSE 69; TEMP 36.4; O2SAT 93
[2016-09-21] MEDS: ACETAMINOPHEN 325 MG TAB PO PRN ×4 (02:52→21:00)
[2016-09-21] MEDS: LEVOTHYROXINE 75 MCG TAB PO SCH (05:34)
[2016-09-21 07:57] VITALS: BP 166/82; PULSE 62; TEMP 36.6; O2SAT 97
[2016-09-21 08:16] LABS: MEAN CELL VOLUME 89.7 fL (80-100); MEAN CORPUSCULAR HEMOGLOBIN 29.9 pg (25-34); MEAN CORPUSCULAR HGB CONC 33.3 g/dl (32-36); MEAN PLATELET VOLUME 11.5 fL (7.4-10.4); PLATELET COUNT 22 K/uL (130-400); PLT ESTIMATE SIGNIFIC DECREASED; RED BLOOD COUNT 3.01 M/uL (4.7-6.1); WHITE BLOOD COUNT 3.17 K/uL (4.8-10.8)
[2016-09-21 08:19] VITALS: O2SAT 97
[2016-09-21 08:19] LABS: BUN/CREATININE RATIO 21.4 (10-20); CREATININE 1.5 mg/dl (0.60-1.40); POTASSIUM 3.4 mmol/L (3.5-5.1)
[2016-09-21] MEDS: PANTOprazole SOD 40 MG TAB PO SCH (08:23)
[2016-09-21] MEDS: AMLODIPINE BESYLATE 5 MG TAB PO SCH (08:23)
[2016-09-21] MEDS: SODIUM BICARBONATE 650 MG TAB PO SCH (08:23)
[2016-09-21] MEDS: FERROUS SULFATE 325 MG TAB PO SCH ×2 (08:23→17:09)
[2016-09-21] MEDS: MAGNESIUM OXIDE 400 MG TAB PO SCH ×2 (08:24→21:00)
[2016-09-21 08:37] LABS: CALCIUM 7.8 mg/dl (8.5-10.1)
[2016-09-21] MEDS: CARVEDILOL 12.5 MG TAB PO SCH ×2 (11:44→21:00)
[2016-09-21 11:47] VITALS: BP 122/76
[2016-09-21] MEDS ORDERED: POTASSIUM CHLORIDE 20 MEQ TABCR PO ONE (12:00)
--- NOTE | 2016-09-21 14:18 | Progress Note ---
Medicine Progress Note Date & Time of Visit: September 21, 2016 at 14:11. Subjective Pt was seen and examined He just finished working with PT Daughter and other family members present Pt said that he feels fine He said that his only complaint is the back pain denies any chest pain, palpitation, dizziness, bowel or blader loss and SOB Objective Last 8 Hrs Date Time Temp Pulse Resp B/P Pulse Ox O2 Delivery O2 Flow Rate FiO2 09/21/16 11:47 122/76 09/21/16 08:19 97 Room Air 09/21/16 07:57 36.6 62 16 166/82 97 Room Air 09/21/16 07:15 Room Air Physical Exam: General- No acute distress, very pleasant Head- atraumatic Eyes- PERRL, EOMI ENT- oropharynx clear Neck- supple, no JVD Lungs- clear to auscultation Heart- regular rhythm Abdomen- normal bowel sounds, soft Extremities- no calf tenderness Neuro- alert, oriented x 3; PERRL, EOMI Skin- warm & dry Laboratory Results: Last 24 Hours Test 09/21/16 07:36 White Blood Count 3.17 K/uL Red Blood Count 3.01 M/uL Hemoglobin 9.0 g/dL Hematocrit 27.0 % Mean Corpuscular Volume 89.7 fL Mean Corpuscular Hemoglobin 29.9 pg Mean Corpuscular Hemoglobin Concent 33.3 g/dl RDW Standard Deviation 56.4 fL RDW Coefficient of Variation 17.1 % Platelet Count 22 K/uL Mean Platelet Volume 11.5 fL Platelet Estimate SIGNIFIC DECREASED Sodium Level 144 mmol/L Potassium Level 3.4 mmol/L Chloride Level 109 mmol/L Carbon Dioxide Level 27 mmol/L Anion Gap 8.0 mmol/L Blood Urea Nitrogen 32 mg/dl Creatinine 1.50 mg/dl Est Creatinine Clear Calc Drug Dose 40.0 ml/min Estimated GFR () 50.6 Estimated GFR (Non- 43.7 BUN/Creatinine Ratio 21.4 Random Glucose 84 mg/dl Calcium Level 7.8 mg/dl Assessment & Plan Back Pain L1 Compression fracture due to fall CT showed Age-indeterminate mild compression fracture at L1 which demonstrates 2 mm of retropulsion of the posterior cortex Continue pain control Orthopedic consulted, No surgical intervention at this time because Pt is not a good surgical candidate Recommended TLSO brace to be worn when he is out of bed and begins ambulation Orthotic consulted Has been using the back brace, which helps Continue PT with the back brace one Waiting for bed to go to [facility] for rehab Gastrohepatic lymph node Lumbar CT showed Gastrohepatic lymph nod [address] abd/pelvis showed 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 This favors a pituitary macroadenoma MRI of the head showed Confirmation of a 2.4 x 2.4 x 2.3 cm suprasellar mass. This favors a pituitary macroadenoma. Workup done for pituitary macroadenoma prolactin negative- no need for bromocriptine. (no need for medical management) Will need formal visual magdaleno by neuroophthalmology-[place] Will need Neuroendocrine and Neurosurgery appointment Asymptomatic CKD Creatine stable Hypothyroidism. Continue Synthroid Hypertension Possible attribute to pain on amlodipine 5 mg and Coreg 12.5 mg BID Continue monitor BP BP stable Hyperlipidemia. Continue statin. GERD Continue Prilosec. Thrombocytopenia Mostly related to liver cirrhosis No signs of active bleeding platelet 22 today will check peripheral smear, immature platelet continue monitor platelet Hx Liver Cirrhosis Stable BPH Continue Flomax Stable DVT px On SCDs due to thrombocytopenia CODE STATUS FULL CODE DISPOSITION Waiting for bed approval to transfer to [facility] for rehab. Consultants: Orthopedic Orthotic Neurology Current Inpatient Medications: Current Inpatient Medications Medications (Trade) Dose Ordered Sig/Med Route Start Time Stop Time Status Last Admin Dose Admin Acetaminophen (Tylenol Tab) 650 mg Q4H PRN PO 09/16/16 00:00 10/16/16 00:00 09/21/16 08:23 650 MG Al Hydrox/Mg Hydrox/Simethicone (Maalox Max Susp) 15 ml Q4H PRN PO 09/16/16 00:00 10/16/16 00:00 Magnesium Hydroxide (Milk Of Magnesia Susp) 30 ml Q6H PRN PO 09/16/16 00:00 10/16/16 00:00 Polyethylene (Miralax Powder Packet) 17 gm DAILY PRN PO 09/16/16 00:00 10/16/16 00:00 Ondansetron HCl (Zofran Inj) 4 mg Q6H PRN IV 09/16/16 00:00 10/16/16 00:00 09/17/16 01:45 4 MG Allopurinol (Zyloprim Tab) 100 mg Q2D PO 09/16/16 09:00 10/16/16 08:59 09/20/16 07:56 100 MG Atorvastatin Calcium (Lipitor Tab) 40 mg HS PO 09/16/16 21:00 10/16/16 20:59 09/20/16 21:34 40 MG Carvedilol (Coreg Tab) 12.5 mg BID@1200,2100 PO 09/16/16 12:00 10/16/16 11:59 09/21/16 11:44 12.5 MG Levothyroxine Sodium (Synthroid Tab) 75 mcg DAILYBB PO 09/16/16 06:00 10/16/16 05:59 09/21/16 05:34 75 MCG Sodium Bicarbonate (Sodium Bicarbonate Tab) 650 mg DAILY PO 09/16/16 09:00 10/16/16 08:59 09/21/16 08:23 650 MG Tamsulosin HCl (Flomax Cap) 0.4 mg HS PO 09/16/16 21:00 10/16/16 20:59 09/20/16 21:34 0.4 MG Magnesium Oxide (Mag-Ox Tab) 400 mg BID PO 09/16/16 09:00 10/16/16 08:59 09/21/16 08:24 400 MG Pantoprazole Sodium (Protonix Tab) 40 mg QAM PO 09/16/16 09:00 10/16/16 08:59 09/21/16 08:23 40 MG Morphine Sulfate (MoRPHine SULFATE INJ) 3 mg Q3HWA PRN IV 09/16/16 00:00 09/30/16 00:00 09/17/16 06:34 3 MG Ferrous Sulfate (Feosol Tab) 325 mg BID17 PO 09/16/16 09:00 10/16/16 08:59 09/21/16 08:23 325 MG Hydralazine HCl (HydrALAZINE INJ) 5 mg Q6 PRN IV. 09/16/16 18:00 10/16/16 17:59 09/16/16 21:39 5 MG Amlodipine Besylate (Norvasc Tab) 5 mg DAILY PO 09/18/16 09:00 10/18/16 08:59 09/21/16 08:23 5 MG
[2016-09-21 15:38] VITALS: BP 120/78; PULSE 64; TEMP 36.5; O2SAT 95
[2016-09-21] MEDS: ATORVASTATIN 40 MG TAB PO SCH (21:00)
[2016-09-21] MEDS: TAMSULOSIN HCL 0.4 MG CAP PO SCH (21:00)
[2016-09-21 23:00] VITALS: BP 122/75; PULSE 74; TEMP 36.3; O2SAT 96
[2016-09-22] VITALS (7 sets, daily range): BP systolic 131–178; BP diastolic 73–86; PULSE 63–69; TEMP 36.4–36.8; O2SAT 94–97
[2016-09-22] MEDS: ACETAMINOPHEN 325 MG TAB PO PRN ×4 (05:23→20:35)
[2016-09-22] MEDS: LEVOTHYROXINE 75 MCG TAB PO SCH (05:23)
[2016-09-22 06:05] LABS: PLATELET COUNT 23 K/uL (130-400)
[2016-09-22 06:06] LABS: HEMATOCRIT 27.1 % (42-52); MEAN CELL VOLUME 90.3 fL (80-100); MEAN CORPUSCULAR HEMOGLOBIN 29.3 pg (25-34); MEAN CORPUSCULAR HGB CONC 32.5 g/dl (32-36); WHITE BLOOD COUNT 3.43 K/uL (4.8-10.8)
[2016-09-22 06:31] LABS: BUN/CREATININE RATIO 18.7 (10-20); CALCIUM 7.6 mg/dl (8.5-10.1); CREATININE 1.5 mg/dl (0.60-1.40); POTASSIUM 3.6 mmol/L (3.5-5.1)
[2016-09-22] MEDS: FERROUS SULFATE 325 MG TAB PO SCH ×2 (08:46→17:46)
[2016-09-22] MEDS: MAGNESIUM OXIDE 400 MG TAB PO SCH ×2 (08:46→20:36)
[2016-09-22] MEDS: PANTOprazole SOD 40 MG TAB PO SCH (08:47)
[2016-09-22] MEDS: AMLODIPINE BESYLATE 5 MG TAB PO SCH (08:47)
[2016-09-22] MEDS: ALLOPURINOL 100 MG TAB PO SCH (08:48)
[2016-09-22] MEDS: SODIUM BICARBONATE 650 MG TAB PO SCH (08:48)
[2016-09-22] MEDS: MAGNESIUM HYDROXIDE SUSP 30 ML UDC PO PRN (08:52)
[2016-09-22] MEDS: CARVEDILOL 12.5 MG TAB PO SCH ×2 (12:26→20:35)
--- NOTE | 2016-09-22 17:56 | Progress Note ---
Medicine Progress Note Date & Time of Visit: September 22, 2016 at 17:53. Subjective Pt was seen and examined No acute distress continue to have back pain denies any chest pain, palpitation and sob Objective Last 8 Hrs Date Time Temp Pulse Resp B/P Pulse Ox O2 Delivery O2 Flow Rate FiO2 09/22/16 15:45 Room Air 09/22/16 15:12 36.6 63 16 135/73 97 Room Air 09/22/16 12:25 69 132/73 09/22/16 10:05 149/85 Physical Exam: General- No acute distress, very pleasant Head- atraumatic Eyes- PERRL, EOMI ENT- oropharynx clear Neck- supple, no JVD Lungs- clear to auscultation Heart- regular rhythm Abdomen- normal bowel sounds, soft Extremities- no calf tenderness Neuro- alert, oriented x 3; PERRL, EOMI Skin- warm & dry Laboratory Results: Last 24 Hours Test 09/22/16 05:43 White Blood Count 3.43 K/uL Red Blood Count 3.00 M/uL Hemoglobin 8.8 g/dL Hematocrit 27.1 % Mean Corpuscular Volume 90.3 fL Mean Corpuscular Hemoglobin 29.3 pg Mean Corpuscular Hemoglobin Concent 32.5 g/dl RDW Standard Deviation 57.2 fL RDW Coefficient of Variation 17.3 % Platelet Count 23 K/uL Immature Platelet Fraction 7.0 % Sodium Level 146 mmol/L Potassium Level 3.6 mmol/L Chloride Level 112 mmol/L Carbon Dioxide Level 28 mmol/L Anion Gap 6.0 mmol/L Blood Urea Nitrogen 28 mg/dl Creatinine 1.50 mg/dl Est Creatinine Clear Calc Drug Dose 40.0 ml/min Estimated GFR () 50.6 Estimated GFR (Non- 43.7 BUN/Creatinine Ratio 18.7 Random Glucose 83 mg/dl Calcium Level 7.6 mg/dl Assessment & Plan Back Pain L1 Compression fracture due to fall CT showed Age-indeterminate mild compression fracture at L1 which demonstrates 2 mm of retropulsion of the posterior cortex Continue pain control Orthopedic consulted, No surgical intervention at this time because Pt is not a good surgical candidate Recommended TLSO brace to be worn when he is out of bed and begins ambulation Orthotic consulted Has been using the back brace, which helps Continue PT with the back brace one Waiting for bed to go to [facility] for rehab Gastrohepatic lymph node Lumbar CT showed Gastrohepatic lymph nod [address] abd/pelvis showed 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 This favors a pituitary macroadenoma MRI of the head showed Confirmation of a 2.4 x 2.4 x 2.3 cm suprasellar mass. This favors a pituitary macroadenoma. Workup done for pituitary macroadenoma prolactin negative- no need for bromocriptine. (no need for medical management) Will need formal visual magdaleno by neuroophthalmology-[place] Will need Neuroendocrine and Neurosurgery appointment Asymptomatic CKD Creatine stable Hypothyroidism. Continue Synthroid Hypertension Possible attribute to pain on amlodipine 5 mg and Coreg 12.5 mg BID Continue monitor BP BP stable Hyperlipidemia. Continue statin. GERD Continue Prilosec. Thrombocytopenia Mostly related to liver cirrhosis No signs of active bleeding platelet 23 today continue monitor platelet hematology consulted case discussed with Dr. Sams Anemia Hbg 8.8 No active bleeding continue monitor CBC Hx Liver Cirrhosis Stable BPH Continue Flomax Stable DVT px On SCDs due to thrombocytopenia CODE STATUS FULL CODE DISPOSITION Waiting for bed approval to transfer to [facility] for rehab. Consultants: Orthopedic Orthotic Neurology Current Inpatient Medications: Current Inpatient Medications Medications (Trade) Dose Ordered Sig/Med Route Start Time Stop Time Status Last Admin Dose Admin Acetaminophen (Tylenol Tab) 650 mg Q4H PRN PO 09/16/16 00:00 10/16/16 00:00 09/22/16 14:49 650 MG Al Hydrox/Mg Hydrox/Simethicone (Maalox Max Susp) 15 ml Q4H PRN PO 09/16/16 00:00 10/16/16 00:00 Magnesium Hydroxide (Milk Of Magnesia Susp) 30 ml Q6H PRN PO 09/16/16 00:00 10/16/16 00:00 09/22/16 08:52 30 ML Polyethylene (Miralax Powder Packet) 17 gm DAILY PRN PO 09/16/16 00:00 10/16/16 00:00 Ondansetron HCl (Zofran Inj) 4 mg Q6H PRN IV 09/16/16 00:00 10/16/16 00:00 09/17/16 01:45 4 MG Allopurinol (Zyloprim Tab) 100 mg Q2D PO 09/16/16 09:00 10/16/16 08:59 09/22/16 08:48 100 MG Atorvastatin Calcium (Lipitor Tab) 40 mg HS PO 09/16/16 21:00 10/16/16 20:59 09/21/16 21:00 40 MG Carvedilol (Coreg Tab) 12.5 mg BID@1200,2100 PO 09/16/16 12:00 10/16/16 11:59 09/22/16 12:26 12.5 MG Levothyroxine Sodium (Synthroid Tab) 75 mcg DAILYBB PO 09/16/16 06:00 10/16/16 05:59 09/22/16 05:23 75 MCG Sodium Bicarbonate (Sodium Bicarbonate Tab) 650 mg DAILY PO 09/16/16 09:00 10/16/16 08:59 09/22/16 08:48 650 MG Tamsulosin HCl (Flomax Cap) 0.4 mg HS PO 09/16/16 21:00 10/16/16 20:59 09/21/16 21:00 0.4 MG Magnesium Oxide (Mag-Ox Tab) 400 mg BID PO 09/16/16 09:00 10/16/16 08:59 09/22/16 08:46 400 MG Pantoprazole Sodium (Protonix Tab) 40 mg QAM PO 09/16/16 09:00 10/16/16 08:59 09/22/16 08:47 40 MG Morphine Sulfate (MoRPHine SULFATE INJ) 3 mg Q3HWA PRN IV 09/16/16 00:00 09/30/16 00:00 09/17/16 06:34 3 MG Ferrous Sulfate (Feosol Tab) 325 mg BID17 PO 09/16/16 09:00 10/16/16 08:59 09/22/16 17:46 325 MG Hydralazine HCl (HydrALAZINE INJ) 5 mg Q6 PRN IV. 09/16/16 18:00 10/16/16 17:59 09/16/16 21:39 5 MG Amlodipine Besylate (Norvasc Tab) 5 mg DAILY PO 09/18/16 09:00 10/18/16 08:59 09/22/16 08:47 5 MG
[2016-09-22] MEDS: ATORVASTATIN 40 MG TAB PO SCH (20:36)
[2016-09-22] MEDS: TAMSULOSIN HCL 0.4 MG CAP PO SCH (20:36)
[2016-09-23] MEDS: ACETAMINOPHEN 325 MG TAB PO PRN ×3 (00:44→15:13)
[2016-09-23] MEDS: MAGNESIUM HYDROXIDE SUSP 30 ML UDC PO PRN (04:29)
[2016-09-23] MEDS: LEVOTHYROXINE 75 MCG TAB PO SCH (05:35)
[2016-09-23 06:25] LABS: HEMATOCRIT 26.8 % (42-52); MEAN CELL VOLUME 91.5 fL (80-100); MEAN CORPUSCULAR HGB CONC 31.7 g/dl (32-36); MEAN PLATELET VOLUME 12.4 fL (7.4-10.4); PLATELET COUNT 34 K/uL (130-400); RED BLOOD COUNT 2.93 M/uL (4.7-6.1)
[2016-09-23 07:03] VITALS: BP 151/84; PULSE 74; TEMP 36.5; O2SAT 94
[2016-09-23] MEDS: AMLODIPINE BESYLATE 5 MG TAB PO SCH (08:40)
[2016-09-23] MEDS: FERROUS SULFATE 325 MG TAB PO SCH (08:40)
[2016-09-23] MEDS: PANTOprazole SOD 40 MG TAB PO SCH (08:40)
[2016-09-23] MEDS: SODIUM BICARBONATE 650 MG TAB PO SCH (08:40)
[2016-09-23] MEDS: MAGNESIUM OXIDE 400 MG TAB PO SCH (08:40)
--- NOTE | 2016-09-23 13:43 | Progress Note ---
Medicine Progress Note Date & Time of Visit: September 23, 2016 at 13:34. Subjective Pt was seen and examined Lying in bed with no distress Pt said that he feels ok continue to have pain in his back that is improved with pain med denies any chest pain, palpitation and SOB Objective Last 8 Hrs Date Time Temp Pulse Resp B/P Pulse Ox O2 Delivery O2 Flow Rate FiO2 09/23/16 07:30 Room Air 09/23/16 07:03 36.5 74 16 151/84 94 Room Air Physical Exam: General- No acute distress, very pleasant Head- atraumatic Eyes- PERRL, EOMI ENT- oropharynx clear Neck- supple, no JVD Lungs- clear to auscultation Heart- regular rhythm Abdomen- normal bowel sounds, soft Extremities- no calf tenderness Neuro- alert, oriented x 3; PERRL, EOMI Skin- warm & dry Laboratory Results: Last 24 Hours Test 09/23/16 05:56 White Blood Count 6.20 K/uL Red Blood Count 2.93 M/uL Hemoglobin 8.5 g/dL Hematocrit 26.8 % Mean Corpuscular Volume 91.5 fL Mean Corpuscular Hemoglobin 29.0 pg Mean Corpuscular Hemoglobin Concent 31.7 g/dl RDW Standard Deviation 59.2 fL RDW Coefficient of Variation 17.7 % Platelet Count 34 K/uL Mean Platelet Volume 12.4 fL Assessment & Plan Back Pain L1 Compression fracture due to fall CT showed Age-indeterminate mild compression fracture at L1 which demonstrates 2 mm of retropulsion of the posterior cortex Continue pain control Orthopedic consulted, No surgical intervention at this time because Pt is not a good surgical candidate Recommended TLSO brace to be worn when he is out of bed and begins ambulation Orthotic consulted Has been using the back brace, which helps Continue PT with the back brace one Will go to [facility] today for rehab Gastrohepatic lymph node Lumbar CT showed Gastrohepatic lymph nod [address] abd/pelvis showed 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 This favors a pituitary macroadenoma MRI of the head showed Confirmation of a 2.4 x 2.4 x 2.3 cm suprasellar mass. This favors a pituitary macroadenoma. Workup done for pituitary macroadenoma prolactin negative- no need for bromocriptine. (no need for medical management) Will need formal visual magdaleno by neuroophthalmology-[place] Will need Neuroendocrine and Neurosurgery appointment Asymptomatic CKD Creatine stable Hypothyroidism. Continue Synthroid Hypertension Possible attribute to pain on amlodipine 5 mg and Coreg 12.5 mg BID Continue monitor BP BP stable Hyperlipidemia. Continue statin. GERD Continue Prilosec. Thrombocytopenia Mostly related to liver cirrhosis/splenomegaly No signs of active bleeding platelet trending up today 34 continue monitor platelet hematology consulted Case discussed today with Loli sharp PA-C Anemia Hbg 8.5 No active bleeding continue monitor CBC Hx Liver Cirrhosis Stable BPH Continue Flomax Stable DVT px On SCDs due to thrombocytopenia CODE STATUS FULL CODE DISPOSITION Will discharge today to [facility] for rehab. Consultants: Orthopedic Orthotic Neurology Current Inpatient Medications: Current Inpatient Medications Medications (Trade) Dose Ordered Sig/Med Route Start Time Stop Time Status Last Admin Dose Admin Acetaminophen (Tylenol Tab) 650 mg Q4H PRN PO 09/16/16 00:00 10/16/16 00:00 09/23/16 08:43 650 MG Al Hydrox/Mg Hydrox/Simethicone (Maalox Max Susp) 15 ml Q4H PRN PO 09/16/16 00:00 10/16/16 00:00 Magnesium Hydroxide (Milk Of Magnesia Susp) 30 ml Q6H PRN PO 09/16/16 00:00 10/16/16 00:00 09/23/16 04:29 30 ML Polyethylene (Miralax Powder Packet) 17 gm DAILY PRN PO 09/16/16 00:00 10/16/16 00:00 Ondansetron HCl (Zofran Inj) 4 mg Q6H PRN IV 09/16/16 00:00 10/16/16 00:00 09/17/16 01:45 4 MG Allopurinol (Zyloprim Tab) 100 mg Q2D PO 09/16/16 09:00 10/16/16 08:59 09/22/16 08:48 100 MG Atorvastatin Calcium (Lipitor Tab) 40 mg HS PO 09/16/16 21:00 10/16/16 20:59 09/22/16 20:36 40 MG Carvedilol (Coreg Tab) 12.5 mg BID@1200,2100 PO 09/16/16 12:00 10/16/16 11:59 09/22/16 20:35 12.5 MG Levothyroxine Sodium (Synthroid Tab) 75 mcg DAILYBB PO 09/16/16 06:00 10/16/16 05:59 09/23/16 05:35 75 MCG Sodium Bicarbonate (Sodium Bicarbonate Tab) 650 mg DAILY PO 09/16/16 09:00 10/16/16 08:59 09/23/16 08:40 650 MG Tamsulosin HCl (Flomax Cap) 0.4 mg HS PO 09/16/16 21:00 10/16/16 20:59 09/22/16 20:36 0.4 MG Magnesium Oxide (Mag-Ox Tab) 400 mg BID PO 09/16/16 09:00 10/16/16 08:59 09/23/16 08:40 400 MG Pantoprazole Sodium (Protonix Tab) 40 mg QAM PO 09/16/16 09:00 10/16/16 08:59 09/23/16 08:40 40 MG Morphine Sulfate (MoRPHine SULFATE INJ) 3 mg Q3HWA PRN IV 09/16/16 00:00 09/30/16 00:00 09/17/16 06:34 3 MG Ferrous Sulfate (Feosol Tab) 325 mg BID17 PO 09/16/16 09:00 10/16/16 08:59 09/23/16 08:40 325 MG Hydralazine HCl (HydrALAZINE INJ) 5 mg Q6 PRN IV. 09/16/16 18:00 10/16/16 17:59 09/16/16 21:39 5 MG Amlodipine Besylate (Norvasc Tab) 5 mg DAILY PO 09/18/16 09:00 10/18/16 08:59 09/23/16 08:40 5 MG
[2016-09-23] MEDS ORDERED: TRAM-10 PO (13:53)
[2016-09-23] MEDS ORDERED: NRV5 PO (13:53)
[2016-09-23 14:08] VITALS: BP 121/76; PULSE 74
[2016-09-23] MEDS: CARVEDILOL 12.5 MG TAB PO SCH (14:10)
--- NOTE | 2016-09-23 14:10 | Discharge Instructions ---
Discharge Instructions Date of Service September 23, 2016. Admission Reason for Admission: Fall, Lumbar Compression Fracture Discharge Discharge Diagnosis / Problem: L1 Compression fracture, Back Pain, Suprasellar Mass, Thrombocytopenia, CKD Discharge Goals Goal(s): Decrease discomfort, Improve function, Increase independence, Improve disease control Activity Recommendations Activity Limitations: resume your previous activity (gradually as tolerated) . Instructions / Follow-Up Instructions / Follow-Up Please follow up with your primary care provider once discharge from rehab Please schedule a follow up appointment with neurology once discharge from rehab [address], [place] [address] Please follow up with neuroophthalmology and Neurosurgery at [facility] once discharge from rehab (your physician or the neurology will arrange that for you) Check CBC in 1 week to monitor the platelet. Monitor blood pressure and titrate BP medications. TLSO brace to be worn when he is out of bed and begins ambulation Fall precaution Continue PT/OT Current Hospital Diet Patient's current hospital diet: AHA Diet (Heart Healthy), Diabetes Type 2 Diet Discharge Diet Recommended Diet: AHA Diet (Heart Healthy), Diabetes Type 2 Diet Pending Studies Studies pending at discharge: no Laboratory Results Hemoglobin A1c Test 09/17/16 06:40 Range/Units Estimated Average Glucose 94 mg/dl Hemoglobin A1c 4.9 4.5-5.6 % Medical Emergencies . Who to Call and When: Medical Emergencies: If at any time you feel your situation is an emergency, please call 911 immediately. . Non-Emergent Contact Non-Emergency issues call your: Primary Care Provider Call Non-Emergent contact if: you have any medication questions . . "Provider Documentation" section prepared by Nino Brantley. . VTE Core Measure Inpt VTE Proph given/why not?: SCD's [place] Drug Monitoring Program Search Results: patient reviewed within database, no issues identified
[2016-09-23 14:25] VITALS: BP 121/76; PULSE 74; TEMP 36.5; O2SAT 94
--- NOTE | 2016-09-23 16:21 | Medical Consult ---
Consultation Date of Consultation: September 23, 2016. Attending Physician: Nino Brantley M.D. Reason for Consultation: Acute on chronic thrombocytopenia History of Present Illness Mr. Villarreal is new to the consult Hematology service. His daughter came to the bedside toward the end of the visit was able to supplement history. He is admitted currently for compression fracture of his lumbar spine status post a fall. He is being treated conservatively with a brace and p.r.n. Tylenol. He is due to be discharged today to a rehabilitation facility. His thrombocytopenia has been chronic, but is acutely exacerbated during this hospitalization. 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 He follows closely with GI. Per his daughter, he has required a few PRBC transfusions more recently. The patient reports feeling overall fair. His pain is somewhat controlled ; he would like another Tylenol at the time of this visit for his back pain. He has not having chest pain, cough or dyspnea. He reports a good appetite and has not had bowel irregularity. He does have chronic intermittent melena from AVMs per GI, but no bright red blood per rectum. He denies hematuria. He has not had swollen glands or fevers. he has a few bruises on his extremities from this hospitalization, but no spontaneous bruising. He has not had epistaxis or gingival bleeding. Past Medical/Surgical History Medical Problems: (1) Abnormal CT of the head Status: Acute (2) Acute renal failure Status: Acute (3) Fall Status: Acute (4) GI bleed Status: Acute (5) Low back pain Status: Acute (6) Lumbar compression fracture Status: Acute (7) Severe anemia Status: Acute (8) Upper GI bleed Status: Acute (9) Weakness Status: Acute Family History FH: CAD (coronary artery disease) FATHER Social History Smoking Status: Former Smoker Drug Use: none Marital Status: Occupation Status: retired Allergies Coded Allergies: Lisinopril (Verified Allergy, Unknown, UNKNOWN, 09/25/16) Current Inpatient Medications Current Inpatient Medications Medications (Trade) Dose Ordered Sig/Med Route Start Time Stop Time Status Last Admin Dose Admin Acetaminophen (Tylenol Tab) 650 mg Q4H PRN PO 09/16/16 00:00 10/16/16 00:00 09/23/16 15:13 650 MG Al Hydrox/Mg Hydrox/Simethicone (Maalox Max Susp) 15 ml Q4H PRN PO 09/16/16 00:00 10/16/16 00:00 Magnesium Hydroxide (Milk Of Magnesia Susp) 30 ml Q6H PRN PO 09/16/16 00:00 10/16/16 00:00 09/23/16 04:29 30 ML Polyethylene (Miralax Powder Packet) 17 gm DAILY PRN PO 09/16/16 00:00 10/16/16 00:00 Ondansetron HCl (Zofran Inj) 4 mg Q6H PRN IV 09/16/16 00:00 10/16/16 00:00 09/17/16 01:45 4 MG Allopurinol (Zyloprim Tab) 100 mg Q2D PO 09/16/16 09:00 10/16/16 08:59 09/22/16 08:48 100 MG Atorvastatin Calcium (Lipitor Tab) 40 mg HS PO 09/16/16 21:00 10/16/16 20:59 09/22/16 20:36 40 MG Carvedilol (Coreg Tab) 12.5 mg BID@1200,2100 PO 09/16/16 12:00 10/16/16 11:59 09/23/16 14:10 12.5 MG Levothyroxine Sodium (Synthroid Tab) 75 mcg DAILYBB PO 09/16/16 06:00 10/16/16 05:59 09/23/16 05:35 75 MCG Sodium Bicarbonate (Sodium Bicarbonate Tab) 650 mg DAILY PO 09/16/16 09:00 10/16/16 08:59 09/23/16 08:40 650 MG Tamsulosin HCl (Flomax Cap) 0.4 mg HS PO 09/16/16 21:00 10/16/16 20:59 09/22/16 20:36 0.4 MG Magnesium Oxide (Mag-Ox Tab) 400 mg BID PO 09/16/16 09:00 10/16/16 08:59 09/23/16 08:40 400 MG Pantoprazole Sodium (Protonix Tab) 40 mg QAM PO 09/16/16 09:00 10/16/16 08:59 09/23/16 08:40 40 MG Morphine Sulfate (MoRPHine SULFATE INJ) 3 mg Q3HWA PRN IV 09/16/16 00:00 09/30/16 00:00 09/17/16 06:34 3 MG Ferrous Sulfate (Feosol Tab) 325 mg BID17 PO 09/16/16 09:00 10/16/16 08:59 09/23/16 08:40 325 MG Hydralazine HCl (HydrALAZINE INJ) 5 mg Q6 PRN IV. 09/16/16 18:00 10/16/16 17:59 09/16/16 21:39 5 MG Amlodipine Besylate (Norvasc Tab) 5 mg DAILY PO 09/18/16 09:00 10/18/16 08:59 09/23/16 08:40 5 MG Review of Systems Constitutional: No chills, No fever, No sweats ENT: + hearing loss Respiratory: No cough, No shortness of breath, No sputum Cardiovascular: No chest pain Abdomen: + GI bleeding, No constipation, No diarrhea, No nausea, No pain Genitourinary - Male: No hematuria Hematologic / Lymphatic: + abnormal bleeding/bruising, No clotting problems, No night sweats, No swollen lymph nodes Physical Exam Date Time Temp Pulse Resp B/P Pulse Ox O2 Delivery O2 Flow Rate FiO2 09/23/16 14:25 36.5 74 16 94 Room Air 09/23/16 14:08 74 121/76 09/23/16 07:30 Room Air 09/23/16 07:03 36.5 74 16 151/84 94 Room Air 09/22/16 23:10 Room Air 09/22/16 23:06 36.4 64 20 131/74 96 Room Air 09/22/16 20:33 63 143/76 General Appearance: WD/WN, no apparent distress Neck: supple, no adenopathy Respiratory/Chest: lungs clear, no respiratory distress, no accessory muscle use Cardiovascular: regular rate, rhythm, no edema Abdomen/GI: normal bowel sounds, non tender, soft, no organomegaly Extremities/Musculoskelatal: + pertinent finding (SCDs in place) Neurologic/Psych: alert, normal mood/affect, oriented x 3 Skin: normal color, warm/dry Laboratory Results 09/21/16 07:36 09/22/16 05:43 09/23/16 05:56 09/21/16 07:36 09/22/16 05:43 Test 09/21/16 07:36 09/22/16 05:43 09/23/16 05:56 Red Blood Count 3.01 M/uL (4.7-6.1) 3.00 M/uL (4.7-6.1) 2.93 M/uL (4.7-6.1) Mean Corpuscular Volume 89.7 fL (80-100) 90.3 fL (80-100) 91.5 fL (80-100) Mean Corpuscular Hemoglobin 29.9 pg (25-34) 29.3 pg (25-34) 29.0 pg (25-34) Mean Corpuscular Hemoglobin Concent 33.3 g/dl (32-36) 32.5 g/dl (32-36) 31.7 g/dl (32-36) RDW Standard Deviation 56.4 fL (36.4-46.3) 57.2 fL (36.4-46.3) 59.2 fL (36.4-46.3) RDW Coefficient of Variation 17.1 % (11.5-14.5) 17.3 % (11.5-14.5) 17.7 % (11.5-14.5) Mean Platelet Volume 11.5 fL (7.4-10.4) 12.4 fL (7.4-10.4) Platelet Estimate SIGNIFIC DECREASED Anion Gap 8.0 mmol/L (3-11) 6.0 mmol/L (3-11) Est Creatinine Clear Calc Drug Dose 40.0 ml/min 40.0 ml/min Estimated GFR () 50.6 50.6 Estimated GFR (Non- 43.7 43.7 BUN/Creatinine Ratio 21.4 (10-20) 18.7 (10-20) Calcium Level 7.8 mg/dl (8.5-10.1) 7.6 mg/dl (8.5-10.1) Immature Platelet Fraction 7.0 % (0.9-8.3) Peripheral Blood Smear Path Consult All imaging studies from this hospitalization reviewed. Initial lumbar CT noted a 2 cm hepatic gastric lymph node. A follow-up CT scan during this hospitalization is without lymphadenopathy. Cirrhotic liver and splenomegaly measuring 18.1 cm in length noted on unenhanced CT scan of the abdomen. Suprasellar mass in the 2 cm range with mass effect on the optic chiasm noted on brain MRI. Assessment & Plan 1. Acute exacerbation of chronic thrombocytopenia * Improved from yesterday, PLTs now in 30K range * Recommend close follow up of counts in rehab * Discussed with patient/daughter that it is likely from splenic sequestration, chronic liver disease, ?consumptive component from fracture * Discussed with patient/daughter that formal follow up could be arranged with hematology for chronic blood loss anemia, thrombocytopenia, but it was mutually decided that patient has close follow up with GI who has been managing blood loss anemia with PRBC, so at this time they will continue to follow with GI 2. 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 Leukopenia, mild- likely from splenic sequestration, resolved on day of discharge 4. Compression fracture of lumbar spine- management per hospitalist, orthopedics ; going to be discharged to rehab today 5. Suprasellar mass favoring pituitary macroadenoma- f/u with neuroendocrine and neuro ophthalmology I performed history and physical examination of the patient . I have discussed the patient's case, impression and plan with Loli Gloria PA-C. Her note reflects my findings and plan. Dr. Larry Sams Hem/Onc
[2016-09-24 14:22] LABS: ILGF1 Z SCORE MALE -2.6 SD (-2.0 - +2.0)
--- NOTE | 2016-09-25 00:59 | Discharge Summary ---
Discharge Summary Date of Service September 23, 2016. Discharge Summary Admission Date: September 15, 2016 at 23:58 Discharge Disposition: Rehab Principal Diagnosis: L1 Compression fracture Secondary Diagnoses/Problems: S/P FALL Back Pain Suprasellar Mass Thrombocytopenia CKD Gastrohepatic lymph node Hypothyroidism Hypertension Anemia Hx Liver disease BPH Procedures: 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 COMPARISON STUDY: Head CT 09/15/2016. FINDINGS: There is no hematoma, midline shift, or acute infarct. The paranasal sinuses are clear. The mastoid air cells are clear. The ventricles and sulci demonstrate mild age-related involutional changes. Scattered foci of T2 hyperintensity seen within the periventricular and subcortical white matter are nonspecific but suggestive of moderate microvascular ischemic changes. The major vascular flow voids at the skull base are well-maintained. There are few punctate old lacunar infarcts in the bilateral cerebellar hemispheres. Confirmation of a 2.4 x 2.4 x 2.3 cm suprasellar mass. This is slightly T2 hyperintense and T1 hypointense. This appears to extend into the right cavernous sinus. This abuts and displaces the undersurface of the optic chiasm. No hydrocephalus. No aneurysm. IMPRESSION: 1. No acute intracranial abnormality. 2. Confirmation of a 2.4 x 2.4 x 2.3 cm suprasellar mass. This favors a pituitary macroadenoma. No aneurysm. 3. Atrophy and microvascular ischemic changes are again noted. Electronically signed by: Anthony Marcial M.D. 09/17/2016 7:32 AM Dictated Date/Time: 09/17/2016 7:26 AM Patient Name: MARK CATHERINE Unit Number: [id number] Dictated: 09/16/161700 Transcribed: 09/16/161700 EV Printed Date/Time: [~ rep prt dt]/[~ rep prt tm] [~ rep ct labl] - [~ rep ct ivnm] [facility] Radiology [place] [address] Dictated: 09/16/161700 Transcribed: 09/16/161700 EV Printed Date/Time: [~ rep prt dt]/[~ rep prt tm] [~ rep ct labl] - [~ rep ct ivnm] CT SCAN OF THE ABDOMEN AND PELVIS WITHOUT IV CONTRAST CLINICAL HISTORY: Back pain. Lymphadenopathy. COMPARISON STUDY: Abdominal CT dated 10/18/2010. TECHNIQUE: CT scan of the abdomen and pelvis is performed from the lung bases to the proximal femora. Images are reviewed in the axial, sagittal, and coronal planes. IV contrast was not administered for this examination as per the referring clinician. Note that the examination was performed in significantly suboptimal fashion without oral and IV contrast. Automated dose control exposure was utilized. CT DOSE: 427.04 mGy.cm FINDINGS: Lung bases: The heart is enlarged and without pericardial effusion. There are coronary artery calcifications. There are small pleural effusions with bibasilar atelectasis. There is a small hiatal hernia. Paraesophageal varices are noted. Liver: The unenhanced liver is cirrhotic in morphology and heterogeneous in attenuation. There is no intrahepatic biliary ductal dilatation. There has been recanalization of the periumbilical vein. Gallbladder: Unremarkable. Spleen: The spleen is markedly enlarged, measuring 18.1 cm in length. Pancreas: The unenhanced pancreas is atrophic. Mild peripancreatic stranding and fluid is suggested. Adrenal glands: Unremarkable. Kidneys: The unenhanced kidneys are atrophic and without hydronephrosis. There are no renal calculi identified. A 1.6 cm exophytic cyst arises from the upper pole of the right kidney. Abdominal vasculature: The abdominal aorta is normal in course and caliber noting advanced atherosclerotic calcification. Bowel: The small bowel and colon are normal in course and caliber. There is moderate sigmoid diverticulosis without CT evidence of acute diverticulitis. The appendix is well-visualized and normal. Peritoneum: There is trace perihepatic ascites. There is trace free fluid in the pelvis. No intraperitoneal free air is seen. There is a fat and fluid containing umbilical hernia. Lymphadenopathy: None. Pelvic viscera: The prostate gland is enlarged, measuring 5.1 cm in transverse diameter. The bladder is normal as visualized. Skeletal structures: The skeletal structures are osteopenic. There is a severe an age indeterminant compression deformity of L1, new from 2010. Mild paravertebral edema is noted around L1. There is only minimal retropulsion of fragments with no significant acquired compromise of the central canal. Moderate lumbosacral spondylosis is observed. No lytic or blastic lesions are seen. IMPRESSION: 1. Suboptimal examination without oral and IV contrast. 2. Cirrhotic liver morphology with evidence of portal hypertension including marked splenomegaly, esophageal varices, and trace abdominopelvic ascites. 3. There is a severe and age indeterminant but acute appearing compression fracture of L1. Correlate for point tenderness at this site. 4. Mild peripancreatic stranding and trace fluid is suggested. This is nonspecific. Correlate clinically and with lipase levels for evidence of acute pancreatitis. 5. Cardiomegaly and small pleural effusions. 6. Moderate sigmoid diverticulosis without CT evidence of acute diverticulitis. 7. Additional findings as above. Electronically signed by: Edu Box M.D. 09/16/2016 5:12 PM Dictated Date/Time: 09/16/2016 5:01 PM The status of this report is Signed. Draft = Not yet reviewed or approved by Radiologist. Signed = Reviewed and approved by Radiologist. <AttendingPhy>Nino Brantley M.D.</AttendingPhy> <FamilyPhy>Vilma Gooden M.D.</FamilyPhy> <PrimaryPhy>Vilma Gooden M.D.</PrimaryPhy> <UnitNumber> [id number]</UnitNumber> <VisitNumber>[id number]</VisitNumber> <PatientName> MARK CATHERINE Faiza</PatientName> <DateOfBirth>1935</DateOfBirth> <Location> [facility]</Location> <ServiceDate>09/15/16</ServiceDate> <MNE>VANDANA</MNE> < OrderingPhy>Abhay Palencia MD</OrderingPhy> <OrderingPhyMNE>f rep ord dr wise </OrderingPhyMNE> <DictatingPhyMNE>f rep dict dr wise</DictatingPhyMNE> < CCListMNE>f rep ct frandy</CCListMNE> <AdmittingPhyMNE>f pt admit dr wise</ AdmittingPhyMNE> <AttendingPhyMNE>f pt attend dr wise</AttendingPhyMNE> <ConsultingPhyMNE>f pt consult dr wise</ConsultingPhyMNE> <FamilyPhyMNE>f pt fam dr wise</FamilyPhyMNE> <OtherPhyMNE>f pt other dr wise</OtherPhyMNE> < PrimaryPhyMNE>f pt prim care dr wise</PrimaryPhyMNE> <ReferringPhyMNE>f pt referring dr wise</ReferringPhyMNE> Consultations: Orthopedic Orthotic Neurology Medication Reconciliation New Medications: Tramadol (Ultram) 50 Mg Tab 25 MG PO Q12 PRN for Pain for 7 Days, #7 TAB Please hold for lethargy Amlodipine Besylate (Amlodipine Besylate) 5 Mg Tab 5 MG PO DAILY for 30 Days, #30 TAB Continued Medications: Allopurinol (Zyloprim) 100 Mg Tab 100 MG PO Q2D, TAB Atorvastatin (Lipitor) 80 Mg Tab 40 MG PO HS, TAB Carvedilol (Coreg) 25 Mg Tab 12.5 MG PO BID@1200,2100, TAB NOON & EVENING Ferrous Sulfate (Kp Ferrous Sulfate) 325 Mg Tab 1 TAB PO BID for 30 Days, #60 TAB 3 Refills Levothyroxine Sodium (Levothyroxine Sodium) 75 Mcg Tab 75 MCG PO QAM for 90 Days, #90 TAB 3 Refills Magnesium Oxide (Mg Supplement (Magnesium Oxide) 400 Mg Tab 400 TAB PO BID Omeprazole (Prilosec) 20 Mg Capcr 20 MG PO QAM, CAP Sodium Bicarbonate (Sodium Bicarbonate) 650 Mg Tab 1 TAB PO DAILY AT NOON Tamsulosin Hcl (Flomax) 0.4 Mg Cap 0.4 MG PO HS, CAP Discontinued Medications: Amlodipine (Norvasc) 2.5 Mg Tab 2.5 MG PO DAILY, TAB Prednisone (Prednisone) 10 Mg Tab 10 MG PO TAPER UD, TAB Admission Information HPI (per Admitting provider): HISTORY OF PRESENT ILLNESS: This 81-year-old male with past medical history significant for CAD, 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 The patient lives alone. Daughter is helping. He also has back problem and is following with [facility] and he was on prednisone taper, supposed to finish it in couple of days.He also has a right knee shot for chondrocalcinosis due to pyrophosphate crystals. He walks with the help of a walker and today in the bathroom had a mechanical fall and fell down and was brought to the hospital and was found to have compression fracture.Complaints of back pain. Denies any chest pain, no shortness of breath, no cough, no nausea, no vomiting. Has some dizziness. He has some vision problems. Normal bowel and bladder movements. Appetite is okay. Currently resting comfortably and hemodynamically stable. Physical Exam (per Admitting): GENERAL: The patient is old and frail, not in distress. VITAL SIGNS: Temperature 36.6, pulse 83, respiratory rate 14, blood pressure 127/90, oxygen 92% room air. HEENT: No pallor, no icterus. Pupils equal, round, and reactive to light. NECK: No JVD, no neck masses, no carotid bruits. CARDIOVASCULAR: S1, S2 heard, regular rate and rhythm, no murmur, no gallop. RESPIRATORY SYSTEM: Clear to auscultation bilaterally. No wheezing, no crackles. ABDOMEN: Soft. Bowel sounds present. Nontender. No distention. CENTRAL NERVOUS SYSTEM: Cranial nerves II through XII grossly intact. MUSCULOSKELETAL: Some spinal tenderness in the lumbar region. Straight leg raise test negative. Hospital Course Back Pain L1 Compression fracture due to fall CT showed Age-indeterminate mild compression fracture at L1 which demonstrates 2 mm of retropulsion of the posterior cortex Continue pain control Orthopedic consulted, No surgical intervention at this time because Pt is not a good surgical candidate Recommended TLSO brace to be worn when he is out of bed and begins ambulation Orthotic consulted Has been using the back brace, which helps Continue PT with the back brace one Will go to [facility] today for rehab Gastrohepatic lymph node Lumbar CT showed Gastrohepatic lymph nod [address] abd/pelvis showed 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 This favors a pituitary macroadenoma MRI of the head showed Confirmation of a 2.4 x 2.4 x 2.3 cm suprasellar mass. This favors a pituitary macroadenoma. Workup done for pituitary macroadenoma prolactin negative- no need for bromocriptine. (no need for medical management) Will need formal visual magdaleno by neuroophthalmology-[place] Will need Neuroendocrine and Neurosurgery appointment Asymptomatic CKD Creatine stable Hypothyroidism. Continue Synthroid Hypertension Possible attribute to pain on amlodipine 5 mg and Coreg 12.5 mg BID Continue monitor BP BP stable Hyperlipidemia. Continue statin. GERD Continue Prilosec. Thrombocytopenia Mostly related to liver cirrhosis/splenomegaly No signs of active bleeding platelet trending up today 34 continue monitor platelet hematology consulted Case discussed today with Loli sharp PA-C Anemia Hbg 8.5 No active bleeding continue monitor CBC Hx Liver Cirrhosis Stable BPH Continue Flomax Stable DVT px On SCDs due to thrombocytopenia CODE STATUS FULL CODE DISPOSITION Will discharge today to [facility] for rehab. Total time spent on discharge = 35 minutes This includes examination of the patient, discharge planning, medication reconciliation, and communication with other providers. Discharge Instructions Discharge Instructions Date of Service September 23, 2016. Admission Reason for Admission: Fall, Lumbar Compression Fracture Discharge Discharge Diagnosis / Problem: L1 Compression fracture, Back Pain, Suprasellar Mass, Thrombocytopenia, CKD Discharge Goals Goal(s): Decrease discomfort, Improve function, Increase independence, Improve disease control Activity Recommendations Activity Limitations: resume your previous activity (gradually as tolerated) . Instructions / Follow-Up Instructions / Follow-Up Please follow up with your primary care provider once discharge from rehab Please schedule a follow up appointment with neurology once discharge from rehab [address], [place] [address] Please follow up with neuroophthalmology and Neurosurgery at [place] once discharge from rehab (your physician or the neurology will arrange that for you) Check CBC in 1 week to monitor the platelet. Monitor blood pressure and titrate BP medications. TLSO brace to be worn when he is out of bed and begins ambulation Fall precaution Continue PT/OT Current Hospital Diet Patient's current hospital diet: AHA Diet (Heart Healthy), Diabetes Type 2 Diet Discharge Diet Recommended Diet: AHA Diet (Heart Healthy), Diabetes Type 2 Diet Pending Studies Studies pending at discharge: no Laboratory Results Hemoglobin A1c Test 09/17/16 06:40 Range/Units Estimated Average Glucose 94 mg/dl Hemoglobin A1c 4.9 4.5-5.6 % Medical Emergencies . Who to Call and When: Medical Emergencies: If at any time you feel your situation is an emergency, please call 911 immediately. . Non-Emergent Contact Non-Emergency issues call your: Primary Care Provider Call Non-Emergent contact if: you have any medication questions . . "Provider Documentation" section prepared by Nino Brantley. . VTE Core Measure Inpt VTE Proph given/why not?: SCD's [place] Drug Monitoring Program Search Results: patient reviewed within database, no issues identified Additional Copies To Vilma Gooden M.D.
[2016-10-03] MEDS ORDERED: HYDR-5688 PO (12:03)
[2016-10-03] MEDS ORDERED: XFX550 PO (12:03)
[2016-10-03] MEDS ORDERED: ALBINS INH (12:03)
[2017-01-29] MEDS ORDERED: CALC500C3 PO (10:26)
[2017-01-29] MEDS ORDERED: FURO-85 PO (10:26)
[2017-01-29] MEDS ORDERED: PRLSR20 PO (10:26)
[2017-01-29] MEDS ORDERED: AMLO2.5T PO (10:26)
== END 2016-09-23 16:14 | DRG 552 ==
LOC: ENRESERVTM → ENRESERVDT → EDBD 21:15 → C.EDB 21:16 → C.MSN 23:58
PROVIDERS: ADMIT Internal Medicine; ATTEND Internal Medicine
DX: S32.000A Wedge compression fracture of unspecified lumbar vertebra, initial encounter for closed fracture (principal); K76.6 Portal hypertension; N18.4 Chronic kidney disease, stage 4 (severe); R18.8 Other ascites; I85.00 Esophageal varices without bleeding; E87.2 Acidosis; W19.XXXA Unspecified fall, initial encounter; Y92.002 Bathroom of unspecified non-institutional (private) residence as the place of occurrence of the external cause; D69.6 Thrombocytopenia, unspecified; K21.9 Gastro-esophageal reflux disease without esophagitis; E03.9 Hypothyroidism, unspecified; E78.5 Hyperlipidemia, unspecified; K74.60 Unspecified cirrhosis of liver; N40.0 Benign prostatic hyperplasia without lower urinary tract symptoms; I25.2 Old myocardial infarction; I25.10 Atherosclerotic heart disease of native coronary artery without angina pectoris; I48.0 Paroxysmal atrial fibrillation; D50.0 Iron deficiency anemia secondary to blood loss (chronic); D72.819 Decreased white blood cell count, unspecified; R59.0 Localized enlarged lymph nodes; I12.9 Hypertensive chronic kidney disease with stage 1 through stage 4 chronic kidney disease, or unspecified chronic kidney disease; M10.9 Gout, unspecified; H91.90 Unspecified hearing loss, unspecified ear; I73.9 Peripheral vascular disease, unspecified; K70.0 Alcoholic fatty liver; D35.2 Benign neoplasm of pituitary gland; Q27.33 Arteriovenous malformation of digestive system vessel; Z87.891 Personal history of nicotine dependence; Z79.899 Other long term (current) drug therapy; Z79.52 Long term (current) use of systemic steroids

== ENCOUNTER 2016-09-25 14:37 | Inpatient (IN) | payer OTHER ==
[2016-09-25] VITALS (7 sets, daily range): BP systolic 138–152; BP diastolic 73–89; PULSE 62–76; TEMP 36.4–36.7; O2SAT 93–97; Ht 172.7 cm; Wt 81.2 kg
[~2016-09-25] VITALS: Ht 172.7 cm; Wt 81.2 kg
[~2016-09-25 14:37] MED LIST changes: -AMLO2.5T PO; +FERR1TAB13 PO; +LEVO75TA5 PO; +NRV5 PO; +TRAM-10 PO
[2016-09-25] MEDS ORDERED: SODIUM CHLORIDE 0.9% 1000ML 1,000 ML IV STA (15:31)
[2016-09-25 15:57] LABS: BUN/CREATININE RATIO 24.3 (10-20); CALCIUM 7.8 mg/dl (8.5-10.1); CREATININE 1.7 mg/dl (0.60-1.40); POTASSIUM 4.3 mmol/L (3.5-5.1)
--- NOTE | 2016-09-25 15:57 | DIAGNOSTIC IMAGING REPORT ---
SINGLE VIEW CHEST CLINICAL HISTORY: Generalized abdominal pain. FINDINGS: An AP, portable, upright chest radiograph is compared to study dated 09/15/2016. The examination is degraded by portable technique and patient rotation. The heart is enlarged and there is atherosclerotic calcification of the thoracic. There is mild pulmonary vascular congestion. The chronic interstitial thickening similar to previous. No airspace consolidation or large pleural effusion is identified. Atelectasis is noted at the left lung base. No pneumothorax is seen. The skeletal structures are osteopenic. The bony thorax is grossly intact. IMPRESSION: 1. Cardiomegaly with mild pulmonary vascular congestion. 2. No airspace consolidation or large pleural effusion is identified. Electronically signed by: Edu Box M.D. 09/25/2016 3:55 PM Dictated Date/Time: 09/25/2016 3:54 PM
[2016-09-25 15:58] LABS: INR 1.1 (0.9-1.1); PARTIAL THROMBOPLASTIN RATIO 1.1; PROTHROMBIN TIME (PATIENT) 11.5 SECONDS (9.0-12.0)
[2016-09-25] MEDS ORDERED: HYDR-5688 PO (16:00)
[2016-09-25] MEDS ORDERED: PANTOprazole INJ 40 MG in DEXTROSE 5% 100ML 100 ML IV ONE (16:15)
[2016-09-25] MEDS ORDERED: FAMOTIDINE IV INJ 20 MG in DEXTROSE 5% 100ML 100 ML IV ONE (16:15)
[2016-09-25 16:20] LABS: URINE APPEARANCE CLEAR (CLEAR); URINE BILIRUBIN NEG (NEG); URINE COLOR YELLOW; URINE NITRITE NEG (NEG); URINE PH 6.5 (4.5-7.5); URINE SPECIFIC GRAVITY 1.019 (1.000-1.030); UROBILINOGEN NEG (NEG)
[2016-09-25 16:25] LABS: MANUAL MICROSCOPIC REQUIRED? NO; REVIEW REQ? NO
[2016-09-25 16:25] LABS: HEMATOCRIT 25.8 % (42-52); MEAN CELL VOLUME 92.1 fL (80-100); MEAN CORPUSCULAR HEMOGLOBIN 29.6 pg (25-34); MEAN CORPUSCULAR HGB CONC 32.2 g/dl (32-36); MEAN PLATELET VOLUME 12.5 fL (7.4-10.4); PLATELET COUNT 31 K/uL (130-400); WHITE BLOOD COUNT 5.42 K/uL (4.8-10.8)
[2016-09-25 16:33] LABS: ANISOCYTOSIS PRESENT; BASO % 0.4 %; BASO ABS # 0.02 K/uL (0-0.2); COMPLETE YES; EOS % 3.7 %; IG% 0.2 %; LYMPH % 11.8 %; LYMPH ABS # 0.64 K/uL (1.2-3.4); MONO % 4.4 %; NEUT % 79.5 %; OVALOCYTES 1+
--- NOTE | 2016-09-25 16:43 | EMERGENCY ROOM VISIT NOTE ---
ED Visit Note First contact with patient: 15:10 The patient was seen and examined with Zhao Barlow. I agree with the history, physical and findings. Please see the note for disposition and details. Hgb stable. Blood typed and waiting. Internal medicine consulted.
[2016-09-25] MEDS ORDERED: OCTREOTIDE IV BOLUS & DRIP IV STA (20:12)
[2016-09-25] MEDS ORDERED: OCTREOTIDE ACETATE INJ 100 MCG in SYRINGE 9 ML IV ONE (20:45)
--- NOTE | 2016-09-25 20:51 | History and Physical ---
History & Physical Date & Time of Service: September 25, 2016 at ~ 17:45 . Chief Complaint: nausea, vomiting . Primary Care Physician: Vilma Gooden M.D. . History of Present Illness Source: patient, family, clinic records, hospital records 81 [address] male followed by Dr[address] Gooden. 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 Last EGD was performed on 07/12/16 and revealed grade II esophageal varices and nonbleeding erosive gastropathy. Last hospitalized 09/15/16 after a fall with L1 compression fracture. No signs of active GI bleeding during that hospital stay. Transferred to [facility] for skilled care on 09/15/16. 2 episodes of nausea and vomiting today with reported hematemesis. Patient unable to describe nature of emesis. Also had reported melena mixed with fresh blood per rectum. Sent to ED for evaluation. Hemodynamically stable since arrival to ED. No further episodes of nausea, vomiting, diarrhea. Denies abdominal pain. No nausea or vomiting. . Past Medical/Surgical History Chronic and Resolved Medical Problems: (1) Anemia Status: Chronic (2) BPH (benign prostatic hypertrophy) Status: Chronic (3) Cirrhosis Permanent Comment: nonalcoholic fatty liver disease Status: Chronic (4) CKD (chronic kidney disease), stage III Status: Chronic (5) Dyslipidemia Status: Chronic (6) Esophageal varices Permanent Comment: Mar 2015- small varices, mild erosive antral gastritis Status: Chronic (7) GERD (gastroesophageal reflux disease) Status: Chronic (8) History of non-ST elevation myocardial infarction (NSTEMI) Permanent Comment: in October 2010 secondary to severe anemia Status: Chronic (9) Hypertension Status: Chronic (10) Hypothyroidism Status: Chronic (11) Paroxysmal atrial fibrillation Status: Chronic (12) Thrombocytopenia Status: Chronic Surgical Problems: (1) H/O colonoscopy Permanent Comment: 2010- adenomatous polyps; 11/2016- polyp, AVM's treated with thermal therapy and clipped, diverticulosis, hemorrhoids Status: Chronic (2) H/O esophagogastroduodenoscopy Permanent Comment: Mar 2015- small varices, mild erosive antral gastritis Status: Chronic . Family History FATHER Coronary artery disease MOTHER Tuberculosis Social History Smoking Status: Former Smoker Alcohol Use: none Drug Use: none Marital Status: Housing status: lives alone Occupational Status: retired Immunizations History of Influenza Vaccine: No History of Tetanus Vaccine?: Unknown History of Pneumococcal: No History of Hepatitis B Vaccine: No Allergies Coded Allergies: Lisinopril (Verified Allergy, Unknown, UNKNOWN, 09/25/16) Home Medications Scheduled Allopurinol (Zyloprim), 100 MG PO Q2D Amlodipine Besylate (Amlodipine Besylate), 5 MG PO DAILY Atorvastatin (Lipitor), 40 MG PO HS Carvedilol (Coreg), 12.5 MG PO BID@1200,2100 Ferrous Sulfate (Kp Ferrous Sulfate), 1 TAB PO BID Levothyroxine Sodium (Levothyroxine Sodium), 75 MCG PO QAM Magnesium Oxide (Mg Supplement (Magnesium Oxide), 400 TAB PO BID Omeprazole (Prilosec), 20 MG PO QAM Sodium Bicarbonate (Sodium Bicarbonate), 1 TAB PO DAILY AT NOON Tamsulosin Hcl (Flomax), 0.4 MG PO HS Scheduled PRN Hydrocodone/Acetaminophen 5MG/325MG ([place] 5MG/325MG), 1 TABLET PO Q6H PRN for Pain Review of Systems Constitutional: No fever, No weight loss Eyes: No diplopia, No worsening of vision ENT: + hearing loss Respiratory: No cough, No shortness of breath Cardiovascular: + edema, No chest pain Abdomen: + problem reported (as noted in HPI) Musculoskeletal: + problem reported (low back pain) Genitourinary - Male: + urinary frequency, No dysuria, No hematuria Neurologic: + memory loss Endocrine: + fatigue Hematologic / Lymphatic: + abnormal bleeding/bruising Physical Exam Vital Signs Date Time Temp Pulse Resp B/P Pulse Ox O2 Delivery O2 Flow Rate FiO2 09/25/16 20:20 36.4 71 22 138/73 96 09/25/16 18:30 36.7 76 18 143/79 97 Room Air 09/25/16 17:50 61 18 120/71 96 Room Air 09/25/16 16:51 55 13 126/65 97 Room Air 09/25/16 16:22 57 11 111/58 97 Room Air 09/25/16 14:51 58 09/25/16 14:46 36.9 61 18 105/66 94 Room Air General Appearance: no apparent distress, + pertinent finding (appears to be chronically ill) Head: normocephalic, atraumatic Eyes: PERRL, EOMI, sclerae normal, + pertinent finding (conjunctivae pale) ENT: + pertinent finding (hard of hearing; upper dentures; lower dentition poor) Neck: supple, no adenopathy, thyroid normal, no JVD, trachea midline Respiratory/Chest: lungs clear, no respiratory distress, no accessory muscle use Cardiovascular: regular rate, rhythm, no gallop, no JVD, + systolic murmur (II/ sys murmur at base), + abnormal peripheral pulses (diminished pedal pulses), + pertinent finding (trace pretibial edema) Abdomen/GI: normal bowel sounds, non tender, soft, no pulsatile mass, + abnormal rectal exam (melena in rectal vault per ED provider), + pertinent finding (slightly distended) Extremities/Musculoskelatal: no calf tenderness, normal capillary refill, + pedal edema (trace) Neurologic/Psych: felt cutter II-XII nml as tested (PERRL, EOMI), + disoriented, + pertinent finding (somnolent, dysarthric, + asterixis) Skin: normal color, warm/dry, no rash Lymphatic: no adenopathy (cervical) Diagnostics Laboratory Results Results Past 24 Hours Test 09/25/16 14:50 09/25/16 15:30 Range/Units White Blood Count 5.42 4.8-10.8 K/uL Red Blood Count 2.80 4.7-6.1 M/uL Hemoglobin 8.3 14.0-18.0 g/dL Hematocrit 25.8 42-52 % Mean Corpuscular Volume 92.1 80-100 fL Mean Corpuscular Hemoglobin 29.6 25-34 pg Mean Corpuscular Hemoglobin Concent 32.2 32-36 g/dl Platelet Count 31 130-400 K/uL Mean Platelet Volume 12.5 7.4-10.4 fL Neutrophils (%) (Auto) 79.5 % Lymphocytes (%) (Auto) 11.8 % Monocytes (%) (Auto) 4.4 % Eosinophils (%) (Auto) 3.7 % Basophils (%) (Auto) 0.4 % Neutrophils # (Auto) 4.31 1.4-6.5 K/uL Lymphocytes # (Auto) 0.64 1.2-3.4 K/uL Monocytes # (Auto) 0.24 0.11-0.59 K/uL Eosinophils # (Auto) 0.20 0-0.5 K/uL Basophils # (Auto) 0.02 0-0.2 K/uL RDW Standard Deviation 60.5 36.4-46.3 fL RDW Coefficient of Variation 17.8 11.5-14.5 % Immature Granulocyte % (Auto) 0.2 % Immature Granulocyte # (Auto) 0.01 0.00-0.02 K/uL Anisocytosis PRESENT Ovalocytes 1+ Prothrombin Time 11.5 9.0-12.0 SECONDS Prothromb Time International Ratio 1.1 0.9-1.1 Activated Partial Thromboplast Time 27.8 21.0-31.0 SECONDS Partial Thromboplastin Ratio 1.1 Sodium Level 146 136-145 mmol/L Potassium Level 4.3 3.5-5.1 mmol/L Chloride Level 112 98-107 mmol/L Carbon Dioxide Level 28 21-32 mmol/L Anion Gap 6.0 3-11 mmol/L Blood Urea Nitrogen 41 7-18 mg/dl Creatinine 1.70 0.60-1.40 mg/dl Est Creatinine Clear Calc Drug Dose 34.1 ml/min Estimated GFR () 43.5 Estimated GFR (Non- 37.5 BUN/Creatinine Ratio 24.3 10-20 Random Glucose 124 70-99 mg/dl Calcium Level 7.8 8.5-10.1 mg/dl Total Bilirubin 1.1 0.2-1 mg/dl Direct Bilirubin 0.3 0-0.2 mg/dl Aspartate Amino Transf (AST/SGOT) 35 15-37 U/L Alanine Aminotransferase (ALT/SGPT) 32 12-78 U/L Alkaline Phosphatase 114 45-117 U/L Total Protein 5.7 6.4-8.2 gm/dl Albumin 2.7 3.4-5.0 gm/dl Urine Color YELLOW Urine Appearance CLEAR CLEAR Urine pH 6.5 4.5-7.5 Urine Specific [place] 1.019 1.000-1.030 Urine Protein NEG NEG Urine Glucose (UA) NEG NEG Urine Ketones NEG NEG Urine Occult Blood NEG NEG Urine Nitrite NEG NEG Urine Bilirubin NEG NEG Urine Urobilinogen NEG NEG Urine Leukocyte Esterase NEG NEG Diagnostic Radiology SINGLE VIEW CHEST IMPRESSION: 1. Cardiomegaly with mild pulmonary vascular congestion. 2. No airspace consolidation or large pleural effusion is identified. Electronically signed by: Edu Box M.D. 09/25/2016 3:55 PM Dictated Date/Time: 09/25/2016 3:54 PM . EKG EKG performed at 15:43 reviewed and demonstrated SB at 56 / minute, first degree AV block, QTC 484 msec, no acute ST or T-wave abnormalities. . 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 Also has esophageal varices and erosive gastropathy per EGD in July. Hgb 8.3 compared to 8.5 on 09/23. Plts 31,000. INR & PTT normal. Hemodynamically stable in ED. Transfuse 1 bag pheresed platelets. Monitor H/H q 6 hrs. Transfuse as necessary to maintain adequate Hgb; reasonable goal would be Hgb > 8 in light of comorbidities. IV pantoprazole, octreotide infusion, cefepime. GI consulted. ALTERED MENTAL STATUS Probably due to hepatic encephalopathy. Rx with lactulose. CIRRHOSIS Attributed to nonalcoholic fatty liver disease. Associated with portal hypertension / grade II esophageal varices. Ongoing management per GI. GERD Continue PPI. CORONARY ARTERY DISEASE No anginal symptoms. No acute EKG changes. Continue carvedilol with hold parameters. PAROXYSMAL ATRIAL FIBRILLATION Currently in sinus rhythm. Continue carvedilol with hold parameters. No anticoagulation due to chronic GI blood loss. HYPERTENSION Hold amlodipine in light of GI bleed. Continue carvedilol with hold parameters. Follow and titrate Rx. CKD III Serum creatinine 1.7, compared to recent baseline of 1.3 - 1.9. Follow. HYPOTHYROIDISM Recent TSH normal. Continue levothyroxine. PITUITARY ADENOMA Recent endocrine evaluation showed normal levels of ACTH, TSH, prolactin, and FSH; LH was low. ANEMIA Multifactorial- acute + chronic blood loss, anemia of chronic disease. THROMBOCYTOPENIA Due to cirrhosis. VTE PROPHYLAXIS No anticoagulants due to GI bleed. SCD's. Ambulate as able. RESUSCITATION STATUS Discussed with daughters. He has a living will. He would not like resuscitation attempted in the event of a cardiopulmonary arrest. Therefore, code status = "Level 5" (DNR). DISPOSITION Admit to Telemetry Unit. Expected return to [facility] for skilled care when medically stable for discharge. . Advanced Directives Existing Living Will: Yes Existing Power of Perch Mender: Yes VTE Prophylaxis VTE Risk Assessment Done? Y/N: Yes Risk Level: Moderate Given or contraindicated: SCD's
[2016-09-25] MEDS ORDERED: CARVEDILOL 25 MG TAB PO SCH (21:00)
[2016-09-25] MEDS ORDERED: PANTOprazole INJ 40 MG in DEXTROSE 5% 100ML IV SCH (21:00)
[2016-09-25] MEDS ORDERED: PANTOprazole INJ 40 MG in SYRINGE 0 ML IV SCH (21:00)
[2016-09-25] MEDS: CEFEPIME IV 2,000 MG in DEXTROSE 5% 100ML 100 ML IV SCH (21:04)
[2016-09-25] MEDS: OCTREOTIDE ACETATE INJ 500 MCG in NSS 100ML IV SCH (21:04)
[2016-09-25] MEDS: D5W AND 1/2NSS 1,000 ML IV SCH (21:04)
[2016-09-25] MEDS: MAGNESIUM OXIDE 400 MG TAB PO SCH (21:08)
[2016-09-25] MEDS: TAMSULOSIN HCL 0.4 MG CAP PO SCH (21:09)
[2016-09-25] MEDS: CARVEDILOL 12.5 MG TAB PO SCH (21:09)
[2016-09-25] MEDS: PANTOprazole INJ 40 MG in SYRINGE 0 ML IV SCH (21:24)
[2016-09-25 23:51] LABS: HEMATOCRIT 27.5 % (42-52); MEAN CELL VOLUME 89.9 fL (80-100); MEAN CORPUSCULAR HEMOGLOBIN 29.1 pg (25-34); MEAN CORPUSCULAR HGB CONC 32.4 g/dl (32-36); RED BLOOD COUNT 3.06 M/uL (4.7-6.1); WHITE BLOOD COUNT 5.13 K/uL (4.8-10.8)
[2016-09-25 23:54] LABS: MEAN PLATELET VOLUME 11.4 fL (7.4-10.4); PLATELET COUNT 36 K/uL (130-400)
[2016-09-26] VITALS (8 sets, daily range): BP systolic 124–166; BP diastolic 72–85; PULSE 65–81; TEMP 36.4–36.8; O2SAT 94–97
--- NOTE | 2016-09-26 01:33 | EMERGENCY ROOM VISIT NOTE ---
ED Visit Note First contact with patient: 15:10 Chief Complaint: Hematemesis. History of Present Illness: Mr. Villarreal is a 81-year-old white male who is brought into the ED via ambulance for hematemesis. Historically patient has a history of previous upper gastrointestinal bleeding and profound anemia. Patient reports he has been feeling fine of the last 2 days. Then this morning he vomited and nursing staff at [facility] noted 3 episodes of vomiting and they tested and it was heme positive. On my initial evaluation patient reports he is feeling fine. He was not experiencing any pain today. He was not expecting to vomit and was not nauseated before his episodes of vomiting. Patient denies fevers, chills, skin eruptions, dizziness, lightheadedness, upper respiratory tract symptoms, shortness of breath, chest pain, abdominal pain, back pain, nausea, diarrhea, urinary symptoms, hematuria, easy bruising. Review of Systems: As noted above in history of present illness. All body systems were reviewed and found to be negative as noted above. Past Medical History: (1) Anemia (2) BPH (benign prostatic hypertrophy) (3) Cirrhosis (4) CKD (chronic kidney disease), stage III (5) Dyslipidemia (6) Esophageal varices (7) GERD (gastroesophageal reflux disease) (8) History of non-ST elevation myocardial infarction (NSTEMI) (9) Hypertension (10) Hypothyroidism (11) Liver disease (12) NAFLD (nonalcoholic fatty liver disease) (13) Paroxysmal atrial fibrillation (14) Symptomatic anemia (15) Thrombocytopenia Surgical Problems: (1) H/O colonoscopy (2) H/O esophagogastroduodenoscopy Current Medications: Medications Dose Route/Sig Max Daily Dose Days Date Category Dose Instructions Ultram (Tramadol HCl) 50 Mg Tab 25 Mg PO Q12 PRN 7 09/23/16 Rx Please hold for lethargy Amlodipine Besylate 5 Mg Tab 5 Mg PO DAILY 30 09/23/16 Rx Levothyroxine Sodium 75 Mcg Tab 75 Mcg PO QAM 90 07/11/16 Reported Kp Ferrous Sulfate (Ferrous Sulfate) 325 Mg Tab 1 Tab PO BID 30 07/11/16 Reported Prilosec (Omeprazole) 20 Mg Capcr 20 Mg PO QAM 11/22/15 Reported Coreg (Carvedilol) 25 Mg Tab 12.5 Mg PO BID@1200,2100 11/22/15 Reported NOON & EVENING Lipitor (Atorvastatin Calcium) 80 Mg Tab 40 Mg PO HS 11/22/15 Reported Flomax (Tamsulosin Hcl) 0.4 Mg Cap 0.4 Mg PO HS 11/22/15 Reported Zyloprim (Allopurinol) 100 Mg Tab 100 Mg PO Q2D 11/22/15 Reported Magnesium Oxide (Magnesium Oxide (Mg Supplement) 400 Mg Tab 400 Tab PO BID 11/22/15 Reported Sodium Bicarbonate 650 Mg Tab 1 Tab PO DAILY AT NOON 11/22/15 Reported Allergies to Medications: Lisinopril. Social History: Patient is currently retired; he feels safe in his home environment; he denies tobacco and alcohol use. Physical Examination: Vital Signs: Date Time Temp Pulse Resp B/P Pulse Ox O2 Delivery O2 Flow Rate FiO2 09/25/16 17:50 61 18 120/71 96 Room Air 09/25/16 16:51 55 13 126/65 97 Room Air 09/25/16 16:22 57 11 111/58 97 Room Air 09/25/16 14:51 58 09/25/16 14:46 36.9 61 18 105/66 94 Room Air GENERAL: 81-year-old male in no acute distress, chronically ill-appearing, afebrile and hemodynamically stable. NEUROLOGICAL: Awake, alert and oriented to person, place and time. Answering questions appropriately and following commands. Good hand eye coordination. No focal motor or sensory deficits. SKIN: Cool, dry and pale. No soft tissue eruptions or trauma noted. HEENT: Atraumatic and normocephalic. PERRLA. Sclera white and conjunctiva pale. No drainage from naris. Oral cavity moist and pink. Pharynx is nonerythematous or edematous. Speech normal. No lymphadenopathy. Trachea midline. No jugular venous distention. BACK: No tenderness over the bony spine. No CVA tenderness. THORAX: Lungs sounds are clear to auscultation and equal bilaterally with symmetrical chest wall. No wheezing, rales or rhonchi. No crepitus, tenderness , subcutaneous air or deformities noted. HEART: Regular rate and rhythm. No gallops, rubs or murmurs are appreciated. ABDOMEN: Distended, soft and nontender. Decreased bowel sounds in all quadrants. No guarding, rigidity or organomegaly. RECTAL: No external tags or hemorrhoids. Normal rectal tone. No palpable rectal masses. Nontender prostrate. Melanotic stools testing heme positive. EXTREMITIES: Moves all extremities well on command and with purpose. All distal neurovascular statuses are intact and equal bilaterally. No calf tenderness or cords. ED Course: Patient is assessed as noted above. Laboratory Testing: Test 09/25/16 14:50 09/25/16 15:30 Range/Units White Blood Count 5.42 4.8-10.8 K/uL Red Blood Count 2.80 4.7-6.1 M/uL Hemoglobin 8.3 14.0-18.0 g/dL Hematocrit 25.8 42-52 % Mean Corpuscular Volume 92.1 80-100 fL Mean Corpuscular Hemoglobin 29.6 25-34 pg Mean Corpuscular Hemoglobin Concent 32.2 32-36 g/dl Platelet Count 31 130-400 K/uL Mean Platelet Volume 12.5 7.4-10.4 fL Neutrophils (%) (Auto) 79.5 % Lymphocytes (%) (Auto) 11.8 % Monocytes (%) (Auto) 4.4 % Eosinophils (%) (Auto) 3.7 % Basophils (%) (Auto) 0.4 % Neutrophils # (Auto) 4.31 1.4-6.5 K/uL Lymphocytes # (Auto) 0.64 1.2-3.4 K/uL Monocytes # (Auto) 0.24 0.11-0.59 K/uL Eosinophils # (Auto) 0.20 0-0.5 K/uL Basophils # (Auto) 0.02 0-0.2 K/uL RDW Standard Deviation 60.5 36.4-46.3 fL RDW Coefficient of Variation 17.8 11.5-14.5 % Immature Granulocyte % (Auto) 0.2 % Immature Granulocyte # (Auto) 0.01 0.00-0.02 K/uL Anisocytosis PRESENT Ovalocytes 1+ Prothrombin Time 11.5 9.0-12.0 SECONDS Prothromb Time International Ratio 1.1 0.9-1.1 Activated Partial Thromboplast Time 27.8 21.0-31.0 SECONDS Partial Thromboplastin Ratio 1.1 Sodium Level 146 136-145 mmol/L Potassium Level 4.3 3.5-5.1 mmol/L Chloride Level 112 98-107 mmol/L Carbon Dioxide Level 28 21-32 mmol/L Anion Gap 6.0 3-11 mmol/L Blood Urea Nitrogen 41 7-18 mg/dl Creatinine 1.70 0.60-1.40 mg/dl Est Creatinine Clear Calc Drug Dose 34.1 ml/min Estimated GFR () 43.5 Estimated GFR (Non- 37.5 BUN/Creatinine Ratio 24.3 10-20 Random Glucose 124 70-99 mg/dl Calcium Level 7.8 8.5-10.1 mg/dl Total Bilirubin 1.1 0.2-1 mg/dl Direct Bilirubin 0.3 0-0.2 mg/dl Aspartate Amino Transf (AST/SGOT) 35 15-37 U/L Alanine Aminotransferase (ALT/SGPT) 32 12-78 U/L Alkaline Phosphatase 114 45-117 U/L Total Protein 5.7 6.4-8.2 gm/dl Albumin 2.7 3.4-5.0 gm/dl Urine Color YELLOW Urine Appearance CLEAR CLEAR Urine pH 6.5 4.5-7.5 Urine Specific [place] 1.019 1.000-1.030 Urine Protein NEG NEG Urine Glucose (UA) NEG NEG Urine Ketones NEG NEG Urine Occult Blood NEG NEG Urine Nitrite NEG NEG Urine Bilirubin NEG NEG Urine Urobilinogen NEG NEG Urine Leukocyte Esterase NEG NEG Chest X-Ray: Was read by myself and the radiologist and shows no acute infiltrates or effusion. Cardiomegaly with atherosclerotic calcification and mild pulmonary vascular congestion. Atelectasis noted in the lung base on the left. No pneumothorax. Skeletal structures are osteopenic. Bony thorax grossly intact. Patient was typed and crossed for 4 units of blood. Patient was hydrated with normal saline and was given 20 mg of Pepcid IV and was started on a Protonix drip. Patient was reassessed multiple times during his stay in the emergency department Patient's case was reviewed with Dr. Woo; he independently assessed the patient we agreed on diagnostic approach, treatment, disposition and plan. I did speak to the family and they reported the patient was considered a DO NOT RESUSCITATE patient but does have the stipulation to accept blood products because of his ongoing GI bleeds. Patient's case was consulted with case management and Dr. Can, [facility] hospitalist, for observation/admission. Patient and family members were educated about today's findings. Clinical Impression: Upper gastrointestinal bleed. Decision-Making: Initially my differential diagnosis I considered many causes of upper gastrointestinal bleed, lower gastrointestinal bleed, rectal bleed and other causes of coagulopathic. Disposition and Plan: Patient be brought in the hospital for observation/ admission by Dr. Can; please see his notes and orders for final disposition and plan.
[2016-09-26] MEDS: LEVOTHYROXINE 75 MCG TAB PO SCH (06:06)
[2016-09-26] MEDS: OCTREOTIDE ACETATE INJ 500 MCG in NSS 100ML IV SCH ×2 (07:46→18:00)
[2016-09-26] MEDS: PANTOprazole INJ 40 MG in SYRINGE 0 ML IV SCH ×2 (07:47→20:41)
[2016-09-26] MEDS: D5W AND 1/2NSS 1,000 ML IV SCH ×2 (07:47→18:01)
[2016-09-26] MEDS: HYDROCODONE/ACETAMOPHEN 5/325MG TAB PO PRN ×2 (07:57→18:32)
[2016-09-26] MEDS: MAGNESIUM OXIDE 400 MG TAB PO SCH ×2 (07:58→20:44)
[2016-09-26] MEDS: CEFEPIME IV 2,000 MG in DEXTROSE 5% 100ML 100 ML IV SCH ×2 (08:55→20:52)
--- NOTE | 2016-09-26 09:11 | Clinical Documentation Query ---
CIERRA Beck : CLINICAL DOCUMENTATION QUERY Patient is a 81 year old male admitted for evaluation and treatment of a GI bleed. Noted also is hepatic encephalopathy, treated with lactulose. As appropriate, please clarify the acuity as suggested below as this directly and significantly impacts DRG assignment. In your clinical opinion is this patient being managed for: ( ) Acute hepatic encephalopathy ( ) Other explanation of clinical findings (Please Explain) ( ) Unable to determine (Please Define) ( ) Need to Discuss ( ) Not Agree The medical record reflects the following clinical findings, treatment, and risk factors. Clinical Indicators: As above Treatment: Lactulose orally Risk Factors: Nonalcoholic fatty liver disease Please clarify and document your clinical opinion in the progress notes and discharge summary. Terms such as "probable", "suspected", "likely", "questionable", "possible", or "still to be ruled out" are acceptable. IF IN AGREEMENT, YOU MUST DOCUMENT ABOVE DIAGNOSTIC STATEMENT IN DAILY PROGRESS NOTES AND DISCHARGE SUMMARY. This document is not part of the patient's record. Thank You, Sidney De Souza, RN [phone]
[2016-09-26 10:34] LABS: INR 1.1 (0.9-1.1); PARTIAL THROMBOPLASTIN RATIO 1.1; PROTHROMBIN TIME (PATIENT) 12.2 SECONDS (9.0-12.0)
[2016-09-26 10:41] LABS: HEMATOCRIT 26.1 % (42-52); MEAN CELL VOLUME 88.8 fL (80-100); MEAN CORPUSCULAR HEMOGLOBIN 28.9 pg (25-34); MEAN CORPUSCULAR HGB CONC 32.6 g/dl (32-36); MEAN PLATELET VOLUME 11.4 fL (7.4-10.4); PLATELET COUNT 30 K/uL (130-400); RED BLOOD COUNT 2.94 M/uL (4.7-6.1); WHITE BLOOD COUNT 3.99 K/uL (4.8-10.8)
[2016-09-26 10:51] LABS: BUN/CREATININE RATIO 19.4 (10-20); CREATININE 1.6 mg/dl (0.60-1.40); POTASSIUM 4.1 mmol/L (3.5-5.1)
[2016-09-26 10:54] LABS: ALB/GLOB RATIO 0.9 (0.9-2)
[2016-09-26 10:56] LABS: CALCIUM 7.9 mg/dl (8.5-10.1)
--- NOTE | 2016-09-26 11:19 | Gastrointestinal Consultation ---
Gastrointestinal Consultation Date of Consultation: September 26, 2016 Attending Physician: Nino Brantley Consulting Physician: Wilma Milian Reason for Consultation: GI bleed. 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 No more hematemesis since admission. On admission , his H/H was 8.9/27.5. Pls 36, he received 1U leukocyte reduced RBC and 1U plt overnight. Hgb up to 8.9 on recheck. PT/INR normal. He has CKD, Cr at baseline 1.6-1.7. He denies any abd pain, n/v, dark tarry stools. Overnight started on Protonix 40mg IV BID, Cefepime 2g Q12 hr, Octreotide. He is hemodynamically stable. Pt's last EGD was on 07/12/16: Grade II esophageal varices, w non bleeding erosive gastropathy. Last Colonoscopy on 12/01/2015: Multiple AVMs treated w thermal therapy, diverticulosis, hemorrhoids, transverse colon polyp. Past Medical/Surgical History Medical Problems: (1) Abnormal CT of the head Status: Acute (2) Acute renal failure Status: Acute (3) Fall Status: Acute (4) GI bleed Status: Acute (5) Low back pain Status: Acute (6) Lumbar compression fracture Status: Acute (7) Severe anemia Status: Acute (8) Upper GI bleed Status: Acute (9) Weakness Status: Acute Family History Coronary artery disease FATHER Tuberculosis MOTHER Social History Smoking Status: Former Smoker Alcohol Use: none Drug Use: none Marital Status: Housing Status: retirement Occupation Status: retired Allergies Coded Allergies: Lisinopril (Verified Allergy, Unknown, UNKNOWN, 09/25/16) Current Medications Home Meds and Scripts Medications Dose Route/Sig Max Daily Dose Days Date Category Dose Instructions [place] 5MG/325MG (Acetaminophen/Hydrocodone Bitart) Tab 1 Tablet PO Q6H PRN 09/25/16 Reported PRN PAIN Amlodipine Besylate 5 Mg Tab 5 Mg PO DAILY 30 09/23/16 Rx Levothyroxine Sodium 75 Mcg Tab 75 Mcg PO QAM 90 07/11/16 Reported Kp Ferrous Sulfate (Ferrous Sulfate) 325 Mg Tab 1 Tab PO BID 30 07/11/16 Reported Prilosec (Omeprazole) 20 Mg Capcr 20 Mg PO QAM 11/22/15 Reported Coreg (Carvedilol) 25 Mg Tab 12.5 Mg PO BID@1200,2100 11/22/15 Reported NOON & EVENING Lipitor (Atorvastatin Calcium) 80 Mg Tab 40 Mg PO HS 11/22/15 Reported Flomax (Tamsulosin Hcl) 0.4 Mg Cap 0.4 Mg PO HS 11/22/15 Reported Zyloprim (Allopurinol) 100 Mg Tab 100 Mg PO Q2D 11/22/15 Reported Magnesium Oxide (Magnesium Oxide (Mg Supplement) 400 Mg Tab 400 Tab PO BID 11/22/15 Reported Sodium Bicarbonate 650 Mg Tab 1 Tab PO DAILY AT NOON 11/22/15 Reported Review of Systems Constitutional: No chills, No fever Respiratory: No cough, No shortness of breath Cardiac: No chest pain, No edema Abdomen: + GI bleeding, + see HPI, No nausea, No pain, No vomiting Physical Exam Date Time Temp Pulse Resp B/P Pulse Ox O2 Delivery O2 Flow Rate FiO2 09/26/16 07:17 36.6 72 20 124/76 97 Room Air 166/79 09/26/16 04:00 Room Air 09/26/16 03:17 36.8 81 19 137/78 95 Room Air 09/26/16 00:03 36.5 66 20 154/81 94 Room Air 09/26/16 00:00 Room Air 09/25/16 22:45 36.5 65 18 144/82 93 Room Air 09/25/16 22:15 36.5 71 18 152/84 96 Room Air 09/25/16 22:00 36.6 64 16 142/89 97 09/25/16 21:00 36.5 67 18 144/82 97 09/25/16 20:35 36.5 62 18 140/78 96 09/25/16 20:20 36.4 71 22 138/73 96 09/25/16 20:00 Room Air 09/25/16 18:30 36.7 76 18 143/79 97 Room Air 09/25/16 17:50 61 18 120/71 96 Room Air 09/25/16 16:51 55 13 126/65 97 Room Air 09/25/16 16:22 57 11 111/58 97 Room Air 09/25/16 14:51 58 09/25/16 14:46 36.9 61 18 105/66 94 Room Air General Appearance: WD/WN, no apparent distress Eyes: normal inspection, PERRL, EOMI Neck: supple, no JVD, trachea midline Respiratory/Chest: normal breath sounds, no respiratory distress, no accessory muscle use Cardiovascular: regular rate, rhythm, no gallop, no murmur Abdomen: non tender, soft Extremities: normal inspection, no pedal edema, no calf tenderness Neurologic/Psych: alert, normal mood/affect, oriented x 3 Skin: normal color, no jaundice, no rash Laboratory Results Last 24 Hours Test 09/25/16 14:50 09/25/16 15:30 09/25/16 23:45 09/26/16 10:00 White Blood Count 5.42 K/uL 5.13 K/uL 3.99 K/uL Red Blood Count 2.80 M/uL 3.06 M/uL 2.94 M/uL Hemoglobin 8.3 g/dL 8.9 g/dL 8.5 g/dL Hematocrit 25.8 % 27.5 % 26.1 % Mean Corpuscular Volume 92.1 fL 89.9 fL 88.8 fL Mean Corpuscular Hemoglobin 29.6 pg 29.1 pg 28.9 pg Mean Corpuscular Hemoglobin Concent 32.2 g/dl 32.4 g/dl 32.6 g/dl Platelet Count 31 K/uL 36 K/uL 30 K/uL Mean Platelet Volume 12.5 fL 11.4 fL 11.4 fL Neutrophils (%) (Auto) 79.5 % Lymphocytes (%) (Auto) 11.8 % Monocytes (%) (Auto) 4.4 % Eosinophils (%) (Auto) 3.7 % Basophils (%) (Auto) 0.4 % Neutrophils # (Auto) 4.31 K/uL Lymphocytes # (Auto) 0.64 K/uL Monocytes # (Auto) 0.24 K/uL Eosinophils # (Auto) 0.20 K/uL Basophils # (Auto) 0.02 K/uL RDW Standard Deviation 60.5 fL 56.2 fL 55.2 fL RDW Coefficient of Variation 17.8 % 17.4 % 17.2 % Immature Granulocyte % (Auto) 0.2 % Immature Granulocyte # (Auto) 0.01 K/uL Anisocytosis PRESENT Ovalocytes 1+ Prothrombin Time 11.5 SECONDS 12.2 SECONDS Prothromb Time International Ratio 1.1 1.1 Activated Partial Thromboplast Time 27.8 SECONDS 28.7 SECONDS Partial Thromboplastin Ratio 1.1 1.1 Sodium Level 146 mmol/L 144 mmol/L Potassium Level 4.3 mmol/L 4.1 mmol/L Chloride Level 112 mmol/L 110 mmol/L Carbon Dioxide Level 28 mmol/L 25 mmol/L Anion Gap 6.0 mmol/L 9.0 mmol/L Blood Urea Nitrogen 41 mg/dl 31 mg/dl Creatinine 1.70 mg/dl 1.60 mg/dl Est Creatinine Clear Calc Drug Dose 34.1 ml/min 36.2 ml/min Estimated GFR () 43.5 46.8 Estimated GFR (Non- 37.5 40.4 BUN/Creatinine Ratio 24.3 19.4 Random Glucose 124 mg/dl 129 mg/dl Calcium Level 7.8 mg/dl 7.9 mg/dl Total Bilirubin 1.1 mg/dl 1.3 mg/dl Direct Bilirubin 0.3 mg/dl Aspartate Amino Transf (AST/SGOT) 35 U/L 36 U/L Alanine Aminotransferase (ALT/SGPT) 32 U/L 29 U/L Alkaline Phosphatase 114 U/L 103 U/L Total Protein 5.7 gm/dl 5.6 gm/dl Albumin 2.7 gm/dl 2.6 gm/dl Urine Color YELLOW Urine Appearance CLEAR Urine pH 6.5 Urine Specific [place] 1.019 Urine Protein NEG Urine Glucose (UA) NEG Urine Ketones NEG Urine Occult Blood NEG Urine Nitrite NEG Urine Bilirubin NEG Urine Urobilinogen NEG Urine Leukocyte Esterase NEG Globulin 3.0 gm/dl Albumin/Globulin Ratio 0.9 Impression Patient is a 81 year old male w hx of NAFLD cirrhosis, presented w hematemesis x 2 episodes prior to admission from [place]. H/H around baseline. He did receive 1U leukocyte reduced RBC, 1U Plt. His previous EGD w signs of Grade II esophageal varices, and gastric erosions. He also has colonic AVMs. Plan - NPO for EGD today by Dr. Milian. - Keep Protonix 40mg IV BID for now. - Less likely has esophageal varices bleed. - Monitor H/H and transfuse prn Attg addendum: I interviewed and examined pt, reviewed chart and labs. Pt admit with hematemesis, confusion. His BUN was stable, and Hgb appears close to baseline. On endoscopy, he had varices with red leroy signs but no obvious stigmata of recent hemorrhage. It seems most likely that he had a bleed from portal gastropathy, although I cannot entirely rule out a variceal bleed. Because of his h/o hematemesis and the presence of mod large varices, I did band his varices. Please continue octreotide and PPI gtt x 48 hours, and abx x 1 week. Clear liquids today, then full liquids tomorrow. He appears mildly encephalopathic - will begin xifaxan.
[2016-09-26] MEDS: SODIUM BICARBONATE 650 MG TAB PO SCH (12:00)
[2016-09-26] MEDS: CARVEDILOL 12.5 MG TAB PO SCH ×2 (12:00→20:43)
[2016-09-26] MEDS ORDERED: ATROPINE SULFATE 0.1 MG/ML 5ML SYR IV PRN (12:15)
[2016-09-26] MEDS ORDERED: EpHEDrine SULFATE INJ 50 MG/ML AMP IV PRN (12:15)
[2016-09-26] MEDS ORDERED: PROPOFOL IV EMULSION 10 MG/ML 20 ML VIAL IV ONE (12:26)
[2016-09-26] MEDS ORDERED: LIDOCAINE HCL 2% 2 ML VIAL (20MG/ML) ONE (12:26)
[2016-09-26] MEDS ORDERED: ETOMIDATE 2 MG/ML 20 ML VIAL IV ONE (12:26)
--- NOTE | 2016-09-26 12:44 | Progress Note ---
Medicine Progress Note Date & Time of Visit: September 26, 2016 at 12:03. Subjective Pt was seen and examined Lying in bed with no distress Pt said that he is having some tenderness in his back from the last weeks Pt said that since admitted, he haven't had any nausea and vomiting. No bleeding episodes Denies any chest pain, palpitation, dizziness and SOB Objective Last 8 Hrs Date Time Temp Pulse Resp B/P Pulse Ox O2 Delivery O2 Flow Rate FiO2 09/26/16 11:28 36.5 64 20 133/75 95 Room Air 09/26/16 11:19 36.6 72 20 166/79 97 Room Air 09/26/16 08:00 Room Air 09/26/16 07:17 36.6 72 20 124/76 97 Room Air 166/79 Physical Exam: General- No acute distress Head- atraumatic Eyes- PERRL, EOMI ENT- oropharynx clear Neck- supple, no JVD Lungs- No wheezing, no crackles Heart- regular rhythm; + systolic murmur Abdomen- normal bowel sounds, soft Extremities- + edema, no calf tenderness Neuro- alert but a little slow to respond, PERRL, EOMI; no facial palsy Skin- warm & dry Laboratory Results: Last 24 Hours Test 09/25/16 14:50 09/25/16 15:30 09/25/16 23:45 09/26/16 10:00 White Blood Count 5.42 K/uL 5.13 K/uL 3.99 K/uL Red Blood Count 2.80 M/uL 3.06 M/uL 2.94 M/uL Hemoglobin 8.3 g/dL 8.9 g/dL 8.5 g/dL Hematocrit 25.8 % 27.5 % 26.1 % Mean Corpuscular Volume 92.1 fL 89.9 fL 88.8 fL Mean Corpuscular Hemoglobin 29.6 pg 29.1 pg 28.9 pg Mean Corpuscular Hemoglobin Concent 32.2 g/dl 32.4 g/dl 32.6 g/dl Platelet Count 31 K/uL 36 K/uL 30 K/uL Mean Platelet Volume 12.5 fL 11.4 fL 11.4 fL Neutrophils (%) (Auto) 79.5 % Lymphocytes (%) (Auto) 11.8 % Monocytes (%) (Auto) 4.4 % Eosinophils (%) (Auto) 3.7 % Basophils (%) (Auto) 0.4 % Neutrophils # (Auto) 4.31 K/uL Lymphocytes # (Auto) 0.64 K/uL Monocytes # (Auto) 0.24 K/uL Eosinophils # (Auto) 0.20 K/uL Basophils # (Auto) 0.02 K/uL RDW Standard Deviation 60.5 fL 56.2 fL 55.2 fL RDW Coefficient of Variation 17.8 % 17.4 % 17.2 % Immature Granulocyte % (Auto) 0.2 % Immature Granulocyte # (Auto) 0.01 K/uL Anisocytosis PRESENT Ovalocytes 1+ Prothrombin Time 11.5 SECONDS 12.2 SECONDS Prothromb Time International Ratio 1.1 1.1 Activated Partial Thromboplast Time 27.8 SECONDS 28.7 SECONDS Partial Thromboplastin Ratio 1.1 1.1 Sodium Level 146 mmol/L 144 mmol/L Potassium Level 4.3 mmol/L 4.1 mmol/L Chloride Level 112 mmol/L 110 mmol/L Carbon Dioxide Level 28 mmol/L 25 mmol/L Anion Gap 6.0 mmol/L 9.0 mmol/L Blood Urea Nitrogen 41 mg/dl 31 mg/dl Creatinine 1.70 mg/dl 1.60 mg/dl Est Creatinine Clear Calc Drug Dose 34.1 ml/min 36.2 ml/min Estimated GFR () 43.5 46.8 Estimated GFR (Non- 37.5 40.4 BUN/Creatinine Ratio 24.3 19.4 Random Glucose 124 mg/dl 129 mg/dl Calcium Level 7.8 mg/dl 7.9 mg/dl Total Bilirubin 1.1 mg/dl 1.3 mg/dl Direct Bilirubin 0.3 mg/dl Aspartate Amino Transf (AST/SGOT) 35 U/L 36 U/L Alanine Aminotransferase (ALT/SGPT) 32 U/L 29 U/L Alkaline Phosphatase 114 U/L 103 U/L Total Protein 5.7 gm/dl 5.6 gm/dl Albumin 2.7 gm/dl 2.6 gm/dl Urine Color YELLOW Urine Appearance CLEAR Urine pH 6.5 Urine Specific [place] 1.019 Urine Protein NEG Urine Glucose (UA) NEG Urine Ketones NEG Urine Occult Blood NEG Urine Nitrite NEG Urine Bilirubin NEG Urine Urobilinogen NEG Urine Leukocyte Esterase NEG Globulin 3.0 gm/dl Albumin/Globulin Ratio 0.9 Date/Time Source Procedure Growth Status 09/26/16 06:00 Nasal MRSA DNA Surveillance Screen - Final Specimen Negative for MRSA by DNA Probe Complete Assessment & Plan GI BLEED Hx esophageal varices and erosive gastropathy per EGD in July. Hbg on admission 8.3 and Plt 31K Received 1 units platelet yesterday recent hgb 8.5 and platelet 30K No active bleeding noted Continue monitor H/H and transfuse if hgb <8 , monitor platelet level and transfuse platelet if develop any active bleeding or plt<10K GI on board Schedule for EGD today Keep NPO for now for the EGD On IV pantoprazole, octreotide infusion, cefepime. Clinically stable ALTERED MENTAL STATUS Probably due to hepatic encephalopathy. Continue lactulose. Check ammonia level CIRRHOSIS Portal hypertension / grade II esophageal varices. Due to nonalcoholic fatty liver disease Continue follow with Gastro GERD Continue PPI. CORONARY ARTERY DISEASE Asymptomatic EKG did not show any ischemic change Continue carvedilol with hold parameters. PAROXYSMAL ATRIAL FIBRILLATION Currently in sinus rhythm. Continue carvedilol with hold parameters. Not a candidate for anticoagulation due to chronic GI blood loss. HYPERTENSION BP stable Continue to hold amlodipine Continue carvedilol with hold parameters. CKD III Serum creatinine 1.7 on admission Creatine baseline between 1.3 - 1.9. creatine 1.6 this morning Avoid nephrotoxic agents Stable HYPOTHYROIDISM Continue levothyroxine. 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 SCD's. Ambulate as able. RESUSCITATION STATUS DNR He has a living will. DISPOSITION Admit to Telemetry Unit. Expected return to [facility] for skilled care when medically stable for discharge. . Consultants: Gastro Procedures: EGD Current Inpatient Medications: Current Inpatient Medications Medications (Trade) Dose Ordered Sig/Med Route Start Time Stop Time Status Last Admin Dose Admin Allopurinol (Zyloprim Tab) 100 mg Q2D@0900 PO 09/27/16 09:00 10/27/16 08:59 Acetaminophen/ Hydrocodone Bitart ([place] 5/325 Tab) 1 tab Q6H PRN PO 09/25/16 20:15 10/09/16 20:14 09/26/16 07:57 1 TAB Levothyroxine Sodium (Synthroid Tab) 75 mcg DAILYBB PO 09/26/16 06:00 10/26/16 05:59 09/26/16 06:06 75 MCG Sodium Bicarbonate (Sodium Bicarbonate Tab) 650 mg DAILY@1200 PO 09/26/16 12:00 10/26/16 11:59 Tamsulosin HCl (Flomax Cap) 0.4 mg HS PO 09/25/16 21:00 10/25/16 20:59 09/25/16 21:09 0.4 MG Magnesium Oxide 400 mg 400 mg BID PO 09/25/16 21:00 10/25/16 20:59 09/26/16 07:58 400 MG Cefepime HCl 2000 mg/Dextrose 112.5 ml @ 200 mls/hr Q12H IV 09/25/16 21:00 10/05/16 20:59 09/26/16 08:55 200 MLS/HR Octreotide Acetate/Sodium Chloride (Sandostatin Inj/ Nss 100ml) 105 ml @ 10 mls/hr [id number] IV 09/25/16 20:45 10/25/16 20:44 09/26/16 07:46 10 MLS/HR Carvedilol 12.5 mg 12.5 mg BID@1200,2100 PO 09/25/16 21:00 10/25/16 20:59 09/25/16 21:09 12.5 MG Dextrose/Sodium Chloride 1,000 ml @ 100 mls/hr Q10H IV 09/25/16 21:00 10/25/16 20:59 09/26/16 07:47 100 MLS/HR Pantoprazole Sodium/Syringe (Protonix Inj/ Syringe) 10 ml @ 5 mls/min BID@0900,2100 IV 09/25/16 21:00 10/25/16 20:59 09/26/16 07:47 5 MLS/MIN
--- NOTE | 2016-09-26 13:10 | GI REPORT ---
Procedure Date: 09/26/2016 12:44 PM Procedure: Upper GI endoscopy Indications: Hematemesis Medicines: See the Anesthesia note for documentation of the administered medications Complications: No immediate complications. Estimated Blood Loss: Estimated blood loss: none. Procedure: Pre-Anesthesia Assessment: - ASA Grade Assessment: IV - A patient with severe systemic disease that is a constant threat to life. After obtaining informed consent, the endoscope was passed under direct vision. Throughout the procedure, the patient's blood pressure, pulse, and oxygen saturations were monitored continuously. The Scope was introduced through the mouth, and advanced to the second part of duodenum. The upper GI endoscopy was accomplished without difficulty. The patient tolerated the procedure well. Findings: Grade II varices were found in the middle third of the esophagus and in the lower third of the esophagus. There were multiple columsn, with matting of varices. No stigmata of recent bleeding were evident and red leroy signs were present. Scarring from prior treatment was visible. Four bands were successfully placed. There was no bleeding during the procedure. The GE junction was at 40 cm. There was some debris in the stomach. There was no gastric varices. There was mild portal gastropathy, most prominent in fundus and cardia. The remainder of the stomach was normal. The duodenum was normal. Impression: - Non-bleeding grade II esophageal varices. There was no stigmata of recent bleeding, but because red leroy signs were present, the varices were banded. - Mild portal gastropathy. Recommendation: - Discharge patient to ICU. To Keller MD 09/26/2016 1:11:08 PM This report has been signed electronically. Note Initiated On: 09/26/2016 12:44 PM I attest to the content of the Intraoperative Record and orders documented therein, exceptions below
[2016-09-26] MEDS ORDERED: EpHEDrine SULFATE 50MG/5ML SYR ONE (13:13)
[2016-09-26] MEDS ORDERED: BENZOCAIN/TETRACA/BUTAM SPRAY 200 APPLN/20 GM SPRY ONE (13:13)
--- NOTE | 2016-09-26 13:18 | Anesthesiology Progress Note ---
Anesthesia Post Op Note Date & Time September 26, 2016 at 13:18 Vital Signs Pain Intensity: 0.0 Vital Signs Past 12 Hours Date Time Temp Pulse Resp B/P Pulse Ox O2 Delivery O2 Flow Rate FiO2 09/26/16 13:05 57 24 110/51 96 Room Air 09/26/16 11:28 36.5 64 20 133/75 95 Room Air 09/26/16 11:19 36.6 72 20 166/79 97 Room Air 09/26/16 08:00 Room Air 09/26/16 07:17 36.6 72 20 124/76 97 Room Air 166/79 09/26/16 04:00 Room Air 09/26/16 03:17 36.8 81 19 137/78 95 Room Air Notes Mental Status: alert / awake / arousable, participated in evaluation Pt Amnestic to Procedure: Yes Nausea / Vomiting: adequately controlled Pain: adequately controlled Airway Patency, RR, SpO2: stable & adequate BP & HR: stable & adequate Hydration State: stable & adequate Anesthetic Complications: no major complications apparent
[2016-09-26] MEDS: TAMSULOSIN HCL 0.4 MG CAP PO SCH (20:43)
[2016-09-26] MEDS: RIFAXIMIN TAB 550 MG TAB PO SCH (20:43)
[2016-09-27] VITALS (8 sets, daily range): BP systolic 118–152; BP diastolic 72–87; PULSE 68–81; TEMP 36.5–37.2; O2SAT 94–98
[2016-09-27] MEDS: D5W AND 1/2NSS 1,000 ML IV SCH ×2 (03:00→12:20)
[2016-09-27] MEDS: OCTREOTIDE ACETATE INJ 500 MCG in NSS 100ML IV SCH ×2 (04:15→14:04)
[2016-09-27] MEDS: LEVOTHYROXINE 75 MCG TAB PO SCH (06:02)
--- NOTE | 2016-09-27 07:58 | Clinical Documentation Query ---
Dr. [facility] : CLINICAL DOCUMENTATION QUERY Patient is a 81 year old male admitted for evaluation and treatment of a GI bleed. Noted also is hepatic encephalopathy, treated with lactulose. As appropriate, please clarify the acuity as suggested below as this directly and significantly impacts DRG assignment. In your clinical opinion is this patient being managed for: ( + ) Acute hepatic encephalopathy ( ) Other explanation of clinical findings (Please Explain) ( ) Unable to determine (Please Define) ( ) Need to Discuss ( ) Not Agree The medical record reflects the following clinical findings, treatment, and risk factors. Clinical Indicators: As above Treatment: Lactulose orally Risk Factors: Nonalcoholic fatty liver disease Please clarify and document your clinical opinion in the progress notes and discharge summary. Terms such as "probable", "suspected", "likely", "questionable", "possible", or "still to be ruled out" are acceptable. IF IN AGREEMENT, YOU MUST DOCUMENT ABOVE DIAGNOSTIC STATEMENT IN DAILY PROGRESS NOTES AND DISCHARGE SUMMARY. This document is not part of the patient's record. Thank You, Sidney De Souza, RN [phone]
[2016-09-27 08:16] LABS: HEMATOCRIT 24.3 % (42-52); MEAN CELL VOLUME 90.3 fL (80-100); MEAN CORPUSCULAR HEMOGLOBIN 29.7 pg (25-34); MEAN CORPUSCULAR HGB CONC 32.9 g/dl (32-36); MEAN PLATELET VOLUME 11.7 fL (7.4-10.4); PLATELET COUNT 29 K/uL (130-400); RED BLOOD COUNT 2.69 M/uL (4.7-6.1); WHITE BLOOD COUNT 4.66 K/uL (4.8-10.8)
[2016-09-27 08:19] LABS: BUN/CREATININE RATIO 15.5 (10-20); CREATININE 1.4 mg/dl (0.60-1.40); POTASSIUM 3.8 mmol/L (3.5-5.1)
[2016-09-27] MEDS: CEFEPIME IV 2,000 MG in DEXTROSE 5% 100ML 100 ML IV SCH (08:32)
[2016-09-27] MEDS: PANTOprazole INJ 40 MG in SYRINGE 0 ML IV SCH (08:32)
[2016-09-27] MEDS: MAGNESIUM OXIDE 400 MG TAB PO SCH ×2 (08:33→20:04)
[2016-09-27] MEDS: RIFAXIMIN TAB 550 MG TAB PO SCH ×2 (08:33→20:05)
[2016-09-27] MEDS: ALLOPURINOL 100 MG TAB PO SCH (08:33)
[2016-09-27 09:02] LABS: CALCIUM 7.4 mg/dl (8.5-10.1)
--- NOTE | 2016-09-27 12:18 | Gastroenterology Progress Note ---
Progress Note Date of Service: September 27, 2016 Subjective Pt evaluation today including: conversation w/ patient, physical exam, chart review, lab review, review of inpatient medication list Pt pleasant but disoriented. He reports having BM overnight but RN denies this on report. No BM output recorded. Hgb stable around 8. Pt denies any n/v, abd pain. Review of Systems Constitutional: No chills, No fever Respiratory: No cough, No shortness of breath Cardiac: No chest pain Abdomen: No nausea, No pain, No vomiting Medications Current Inpatient Medications Medications (Trade) Dose Ordered Sig/Med Route Start Time Stop Time Status Last Admin Dose Admin Allopurinol (Zyloprim Tab) 100 mg Q2D@0900 PO 09/27/16 09:00 10/27/16 08:59 09/27/16 08:33 100 MG Acetaminophen/ Hydrocodone Bitart ([place] 5/325 Tab) 1 tab Q6H PRN PO 09/25/16 20:15 10/09/16 20:14 09/26/16 18:32 1 TAB Levothyroxine Sodium (Synthroid Tab) 75 mcg DAILYBB PO 09/26/16 06:00 10/26/16 05:59 09/27/16 06:02 75 MCG Sodium Bicarbonate (Sodium Bicarbonate Tab) 650 mg DAILY@1200 PO 09/26/16 12:00 10/26/16 11:59 Tamsulosin HCl (Flomax Cap) 0.4 mg HS PO 09/25/16 21:00 10/25/16 20:59 09/26/16 20:43 0.4 MG Magnesium Oxide 400 mg 400 mg BID PO 09/25/16 21:00 10/25/16 20:59 09/27/16 08:33 400 MG Cefepime HCl 2000 mg/Dextrose 112.5 ml @ 200 mls/hr Q12H IV 09/25/16 21:00 10/05/16 20:59 09/27/16 08:32 200 MLS/HR Octreotide Acetate/Sodium Chloride (Sandostatin Inj/ Nss 100ml) 105 ml @ 10 mls/hr [id number] IV 09/25/16 20:45 10/25/16 20:44 09/27/16 04:15 10 MLS/HR Carvedilol 12.5 mg 12.5 mg BID@1200,2100 PO 09/25/16 21:00 10/25/16 20:59 09/26/16 20:43 12.5 MG Dextrose/Sodium Chloride 1,000 ml @ 100 mls/hr Q10H IV 09/25/16 21:00 10/25/16 20:59 09/27/16 03:00 100 MLS/HR Pantoprazole Sodium/Syringe (Protonix Inj/ Syringe) 10 ml @ 5 mls/min BID@0900,2100 IV 09/25/16 21:00 10/25/16 20:59 09/27/16 08:32 5 MLS/MIN Rifaximin (Xifaxan Tab) 550 mg BID PO 09/26/16 21:00 10/26/16 20:59 09/27/16 08:33 550 MG Objective Vital Signs Date Time Temp Pulse Resp B/P Pulse Ox O2 Delivery O2 Flow Rate FiO2 09/27/16 11:23 36.8 80 16 144/87 95 Room Air 09/27/16 08:00 Room Air 09/27/16 07:33 37.0 81 16 145/82 94 Room Air 09/27/16 04:00 Room Air 09/27/16 03:48 36.9 80 22 152/83 96 Room Air 09/27/16 00:41 36.5 79 22 118/72 95 Room Air 09/26/16 23:59 Room Air 09/26/16 20:02 36.4 72 16 141/72 97 Room Air 09/26/16 20:00 96 Nasal Cannula 09/26/16 20:00 Nasal Cannula 09/26/16 16:00 Nasal Cannula 09/26/16 15:37 36.6 68 16 158/85 96 Room Air 09/26/16 14:10 36.4 65 18 155/81 94 Room Air 09/26/16 13:35 68 20 126/64 95 Room Air 09/26/16 13:20 59 24 121/57 94 Room Air 09/26/16 13:05 57 24 110/51 96 Room Air Physical Exam General Appearance: WD/WN, no apparent distress Eyes: normal inspection, PERRL, EOMI Neck: supple, no JVD, trachea midline Respiratory/Chest: normal breath sounds, no respiratory distress, no accessory muscle use Cardiovascular: regular rate, rhythm, no gallop, no murmur Abdomen: normal bowel sounds, non tender, soft Extremities: normal inspection, no pedal edema, no calf tenderness Neurologic/Psych: alert, normal mood/affect, + disoriented Skin: normal color, no jaundice, no rash Laboratory Results Last 24 Hours Test 09/27/16 06:30 White Blood Count 4.66 K/uL Red Blood Count 2.69 M/uL Hemoglobin 8.0 g/dL Hematocrit 24.3 % Mean Corpuscular Volume 90.3 fL Mean Corpuscular Hemoglobin 29.7 pg Mean Corpuscular Hemoglobin Concent 32.9 g/dl RDW Standard Deviation 56.6 fL RDW Coefficient of Variation 17.4 % Platelet Count 29 K/uL Mean Platelet Volume 11.7 fL Sodium Level 139 mmol/L Potassium Level 3.8 mmol/L Chloride Level 108 mmol/L Carbon Dioxide Level 23 mmol/L Anion Gap 8.0 mmol/L Blood Urea Nitrogen 22 mg/dl Creatinine 1.40 mg/dl Est Creatinine Clear Calc Drug Dose 41.4 ml/min Estimated GFR () 55.0 Estimated GFR (Non- 47.5 BUN/Creatinine Ratio 15.5 Random Glucose 109 mg/dl Calcium Level 7.4 mg/dl Assessment and Plan Patient is a 81 year old male w hx of NAFLD cirrhosis, presented w hematemesis x 2 episodes prior to admission from [place]. H/H around baseline. He did receive 1U leukocyte reduced RBC, 1U Plt. His previous EGD w signs of Grade II esophageal varices, and gastric erosions. He also has colonic AVMs. EGD on 09/26/16 showed grade II esophageal varices w/o stigmata of bleeding but w red leroy sign thus banded. He also has mild portal gastropathy. H/H remained stable. No s/s of mo GI bleeding overnight. Plans - PPI gtt & Octreotide for 48hrs total, Cefepime IV or PO equivalent antibx for SBP prophylaxis x 1 week - Xifaxan 550mg BID - FL diet today - Monitor H/H and transfuse prn Attg addendum: I interviewed and examined pt, reviewed chart and labs. Pt wihtout further bleeding. He is disoriented. Plan as above.
[2016-09-27] MEDS: CARVEDILOL 12.5 MG TAB PO SCH ×2 (12:19→20:03)
[2016-09-27] MEDS: SODIUM BICARBONATE 650 MG TAB PO SCH (12:19)
--- NOTE | 2016-09-27 12:39 | Progress Note ---
Internal Med Progress Note Date of Service: September 27, 2016. Provider Documentation: SUBJECTIVE: The patient was seen and examined Generally weak but denies any symptoms No more abdominal pain,nausea and or vomiting NO SOB OBJECTIVE: Vital Signs-as noted below Exam: General-No distress at rest Eyes-normal ENT-normal Neck-supple Lungs-clear to auscultate bilaterally Heart-Regular,no mumur appreciated Abdomen-Mildly distended,no masses,bowel sound present Extremities-Trace edema bilaterally Neuro-Pleasantly confused Lab data as noted below. ASSESSMENT & PLAN: GI BLEED Admitted with questionable Hematemesis and possible rectal bleed Hx esophageal varices and erosive gastropathy per EGD in July. Received 1 units platelet yesterday Recent hgb 8.5 and platelet 30K No active bleeding noted GI input appreciated S/P EGD-type ii esophageal varices ,no active bleeding On IV pantoprazole, octreotide infusion, cefepime. Clinically stable Hepatic Encephalopathy ALTERED MENTAL STATUS Continue lactulose. Clinically a little better NONALCOHOLIC CIRRHOSIS Portal hypertension / grade II esophageal varices. Due to nonalcoholic fatty liver disease Continue follow with Gastro GERD Continue PPI. CORONARY ARTERY DISEASE Asymptomatic EKG did not show any ischemic change Continue carvedilol with hold parameters. PAROXYSMAL ATRIAL FIBRILLATION Currently in sinus rhythm. Continue carvedilol with hold parameters. Not a candidate for anticoagulation due to chronic GI blood loss. HYPERTENSION BP stable Continue to hold amlodipine Continue carvedilol with hold parameters. CKD III Serum creatinine 1.7 on admission Creatine baseline between 1.3 - 1.9. creatine 1.6 this morning Avoid nephrotoxic agent Serum creatinine normalized HYPOTHYROIDISM Continue levothyroxine. 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 SCD's. Ambulate as able. RESUSCITATION STATUS DNR He has a living will. DISPOSITION Admit to Telemetry Unit. [facility] when medically stable for discharge. . Consultants: Gastro Procedures: EGD Vital Signs: Date Time Temp Pulse Resp B/P Pulse Ox O2 Delivery O2 Flow Rate FiO2 09/27/16 11:23 36.8 80 16 144/87 95 Room Air 09/27/16 08:00 Room Air 09/27/16 07:33 37.0 81 16 145/82 94 Room Air 09/27/16 04:00 Room Air 09/27/16 03:48 36.9 80 22 152/83 96 Room Air 09/27/16 00:41 36.5 79 22 118/72 95 Room Air 09/26/16 23:59 Room Air 09/26/16 20:02 36.4 72 16 141/72 97 Room Air 09/26/16 20:00 96 Nasal Cannula 09/26/16 20:00 Nasal Cannula 09/26/16 16:00 Nasal Cannula 09/26/16 15:37 36.6 68 16 158/85 96 Room Air 09/26/16 14:10 36.4 65 18 155/81 94 Room Air 09/26/16 13:35 68 20 126/64 95 Room Air 09/26/16 13:20 59 24 121/57 94 Room Air 09/26/16 13:05 57 24 110/51 96 Room Air Lab Results: Results Past 24 Hours Test 09/27/16 06:30 Range/Units White Blood Count 4.66 4.8-10.8 K/uL Red Blood Count 2.69 4.7-6.1 M/uL Hemoglobin 8.0 14.0-18.0 g/dL Hematocrit 24.3 42-52 % Mean Corpuscular Volume 90.3 80-100 fL Mean Corpuscular Hemoglobin 29.7 25-34 pg Mean Corpuscular Hemoglobin Concent 32.9 32-36 g/dl RDW Standard Deviation 56.6 36.4-46.3 fL RDW Coefficient of Variation 17.4 11.5-14.5 % Platelet Count 29 130-400 K/uL Mean Platelet Volume 11.7 7.4-10.4 fL Sodium Level 139 136-145 mmol/L Potassium Level 3.8 3.5-5.1 mmol/L Chloride Level 108 98-107 mmol/L Carbon Dioxide Level 23 21-32 mmol/L Anion Gap 8.0 3-11 mmol/L Blood Urea Nitrogen 22 7-18 mg/dl Creatinine 1.40 0.60-1.40 mg/dl Est Creatinine Clear Calc Drug Dose 41.4 ml/min Estimated GFR () 55.0 Estimated GFR (Non- 47.5 BUN/Creatinine Ratio 15.5 10-20 Random Glucose 109 70-99 mg/dl Calcium Level 7.4 8.5-10.1 mg/dl
[2016-09-27] MEDS ORDERED: ALBUTEROL 0.083% NEBU SOLN 3 ML VIAL INH PRN (12:45)
[2016-09-27] MEDS: PANTOprazole INJ 40 MG in DEXTROSE 5% 100ML IV SCH ×3 (14:05→23:20)
[2016-09-27] MEDS: CIPROFLOXACIN 500 MG TAB PO SCH (20:04)
[2016-09-27] MEDS: TAMSULOSIN HCL 0.4 MG CAP PO SCH (20:05)
[2016-09-28] VITALS (18 sets, daily range): BP systolic 115–159; BP diastolic 69–94; PULSE 65–97; TEMP 36.5–37.3; O2SAT 93–98
[2016-09-28] MEDS: SODIUM CHLORIDE 0.9% IV SCH ×2 (01:36→12:25)
[2016-09-28] MEDS: OCTREOTIDE ACETATE IV SCH ×2 (01:36→12:25)
[2016-09-28] MEDS: PANTOprazole INJ 40 MG in DEXTROSE 5% 100ML IV SCH ×2 (04:14→09:59)
[2016-09-28] MEDS: LEVOTHYROXINE 75 MCG TAB PO SCH (05:25)
[2016-09-28] MEDS: RIFAXIMIN TAB 550 MG TAB PO SCH ×2 (07:30→21:09)
[2016-09-28] MEDS: MAGNESIUM OXIDE 400 MG TAB PO SCH ×2 (07:30→21:10)
[2016-09-28] MEDS: CIPROFLOXACIN 500 MG TAB PO SCH ×2 (07:30→21:09)
[2016-09-28 09:48] LABS: HEMATOCRIT 24.9 % (42-52); MEAN CELL VOLUME 89.9 fL (80-100); MEAN CORPUSCULAR HEMOGLOBIN 27.8 pg (25-34); MEAN CORPUSCULAR HGB CONC 30.9 g/dl (32-36); RED BLOOD COUNT 2.77 M/uL (4.7-6.1); WHITE BLOOD COUNT 4.36 K/uL (4.8-10.8)
[2016-09-28 09:49] LABS: MEAN PLATELET VOLUME 11.8 fL (7.4-10.4); PLATELET COUNT 36 K/uL (130-400)
[2016-09-28] MEDS: CARVEDILOL 12.5 MG TAB PO SCH ×2 (12:24→21:11)
[2016-09-28] MEDS: SODIUM BICARBONATE 650 MG TAB PO SCH (12:24)
--- NOTE | 2016-09-28 14:58 | Progress Note ---
Internal Med Progress Note Date of Service: September 28, 2016. Provider Documentation: SUBJECTIVE: The patient was seen and examined Generally weak but denies any symptoms No more abdominal pain,nausea and or vomiting Wants to have solid food No complaints OBJECTIVE: Vital Signs-as noted below Exam: General-No distress at rest Eyes-normal ENT-normal Neck-supple Lungs-clear to auscultate bilaterally Heart-Regular,no murmur appreciated Abdomen-Mildly distended,no masses,bowel sound present Extremities-Trace edema bilaterally Neuro-Pleasantly confused Lab data as noted below. ASSESSMENT & PLAN: GI BLEED Admitted with questionable Hematemesis and possible rectal bleed Hx esophageal varices and erosive gastropathy per EGD in July. Received 1 units platelet and 1 unit of PRBC No active bleeding noted GI input appreciated S/P EGD-type ii esophageal varices ,no active bleeding On IV pantoprazole, octreotide infusion, cefepime. Clinically stable but remains weak and lethargic Hb dropped to 7.7 again today will give 2 units of PRBC Hepatic Encephalopathy ALTERED MENTAL STATUS Continue lactulose. Clinically a little better No more confusion but very drowsy NONALCOHOLIC CIRRHOSIS Portal hypertension / grade II esophageal varices. Due to nonalcoholic fatty liver disease Continue follow with Gastro GERD Continue PPI. CORONARY ARTERY DISEASE Asymptomatic EKG did not show any ischemic change Continue carvedilol with hold parameters. PAROXYSMAL ATRIAL FIBRILLATION Currently in sinus rhythm. Continue carvedilol with hold parameters. Not a candidate for anticoagulation due to chronic GI blood loss. HYPERTENSION BP stable Continue to hold amlodipine Continue carvedilol with hold parameters. CKD III Serum creatinine 1.7 on admission Creatine baseline between 1.3 - 1.9. creatine 1.6 this morning Avoid nephrotoxic agent Serum creatinine normalized HYPOTHYROIDISM Continue levothyroxine. 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 SCD's. Ambulate as able. RESUSCITATION STATUS DNR He has a living will. DISPOSITION Admit to Telemetry Unit. Expected return to [facility] for skilled care when medically stable for discharge. . Consultants: Gastro Procedures: EGD Awaiting daughter to provide an update Vital Signs: Date Time Temp Pulse Resp B/P Pulse Ox O2 Delivery O2 Flow Rate FiO2 09/28/16 12:00 37.0 75 19 119/69 95 Room Air 09/28/16 12:00 96 Room Air 09/28/16 08:00 36.9 65 17 144/76 95 Room Air 09/28/16 08:00 96 Room Air 09/28/16 04:41 37.3 78 18 124/76 97 Room Air 09/28/16 04:00 96 Room Air 09/28/16 00:01 96 Room Air 09/27/16 23:42 37.0 68 18 120/75 96 Room Air 09/27/16 20:00 Room Air 09/27/16 19:40 36.9 76 20 145/74 97 Room Air 09/27/16 16:00 Room Air 09/27/16 15:47 37.2 72 22 131/77 98 Room Air Lab Results: Results Past 24 Hours Test 09/28/16 09:40 Range/Units White Blood Count 4.36 4.8-10.8 K/uL Red Blood Count 2.77 4.7-6.1 M/uL Hemoglobin 7.7 14.0-18.0 g/dL Hematocrit 24.9 42-52 % Mean Corpuscular Volume 89.9 80-100 fL Mean Corpuscular Hemoglobin 27.8 25-34 pg Mean Corpuscular Hemoglobin Concent 30.9 32-36 g/dl RDW Standard Deviation 56.7 36.4-46.3 fL RDW Coefficient of Variation 17.4 11.5-14.5 % Platelet Count 36 130-400 K/uL Mean Platelet Volume 11.8 7.4-10.4 fL
[2016-09-28] MEDS: TAMSULOSIN HCL 0.4 MG CAP PO SCH (21:09)
[2016-09-28] MEDS: PANTOprazole SOD 40 MG TAB PO SCH (21:10)
[2016-09-28] MEDS: HYDROCODONE/ACETAMOPHEN 5/325MG TAB PO PRN (23:53)
[2016-09-29] MEDS: LEVOTHYROXINE 75 MCG TAB PO SCH (05:50)
[2016-09-29 06:09] LABS: MEAN CELL VOLUME 89.1 fL (80-100); MEAN CORPUSCULAR HEMOGLOBIN 30.7 pg (25-34); MEAN CORPUSCULAR HGB CONC 34.4 g/dl (32-36); MEAN PLATELET VOLUME 11.9 fL (7.4-10.4); PLATELET COUNT 35 K/uL (130-400); RED BLOOD COUNT 3.03 M/uL (4.7-6.1); WHITE BLOOD COUNT 4.12 K/uL (4.8-10.8)
[2016-09-29 06:55] VITALS: BP 132/50; PULSE 60; TEMP 36.4; O2SAT 95
[2016-09-29 06:59] LABS: CALCIUM 7.6 mg/dl (8.5-10.1); CREATININE 1.6 mg/dl (0.60-1.40); MAGNESIUM 1.9 mg/dl (1.8-2.4); PHOSPHORUS 2.4 mg/dl (2.5-4.9); POTASSIUM 3.8 mmol/L (3.5-5.1)
[2016-09-29] MEDS: RIFAXIMIN TAB 550 MG TAB PO SCH ×2 (09:07→20:13)
[2016-09-29] MEDS: CIPROFLOXACIN 500 MG TAB PO SCH ×2 (09:07→20:12)
[2016-09-29] MEDS: ALLOPURINOL 100 MG TAB PO SCH (09:07)
[2016-09-29] MEDS: PANTOprazole SOD 40 MG TAB PO SCH ×2 (09:07→20:12)
[2016-09-29] MEDS: MAGNESIUM OXIDE 400 MG TAB PO SCH ×2 (09:07→20:11)
--- NOTE | 2016-09-29 11:22 | Progress Note ---
Internal Med Progress Note Date of Service: September 29, 2016. Provider Documentation: SUBJECTIVE: The patient was seen and examined Generally weak but denies any symptoms A little better today following 2 units of PRBC OBJECTIVE: Vital Signs-as noted below Exam: General-No distress at rest but weak Eyes-normal ENT-normal Neck-supple Lungs-clear to auscultate bilaterally Heart-Regular,no murmur appreciated Abdomen-Mildly distended,no masses,bowel sound present Extremities-Trace edema bilaterally Neuro-Pleasantly confused Lab data as noted below. ASSESSMENT & PLAN: GI BLEED Admitted with questionable Hematemesis and possible rectal bleed Hx esophageal varices and erosive gastropathy per EGD in July. Received 1 units platelet and 1 unit of PRBC No active bleeding noted GI input appreciated S/P EGD-type ii esophageal varices ,no active bleeding On IV pantoprazole, octreotide infusion, cefepime. Clinically stable but remains weak and lethargic Hb dropped to 7.7 again today 09/28/16 Received 2 units of PRBC on 09/28/16 Feels a little better Hepatic Encephalopathy ALTERED MENTAL STATUS Continue lactulose. Clinically a little better No more confusion but very lethargic NONALCOHOLIC CIRRHOSIS Portal hypertension / grade II esophageal varices. Due to nonalcoholic fatty liver disease Continue follow with Gastro Continue current medications GERD Continue PPI. CORONARY ARTERY DISEASE Asymptomatic EKG did not show any ischemic change Continue carvedilol with hold parameters. PAROXYSMAL ATRIAL FIBRILLATION Currently in sinus rhythm. Continue carvedilol with hold parameters. Not a candidate for anticoagulation due to chronic GI blood loss. HYPERTENSION BP stable Continue to hold amlodipine Continue carvedilol with hold parameters. CKD III Serum creatinine 1.7 on admission Creatine baseline between 1.3 - 1.9. creatine 1.6 this morning Avoid nephrotoxic agent Serum creatinine normalized HYPOTHYROIDISM Continue levothyroxine. 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 SCD's. Ambulate as able. RESUSCITATION STATUS DNR He has a living will. DISPOSITION Admit to Telemetry Unit. Expected return to [facility] for skilled care when medically stable for discharge. Daughter updated . Consultants: Gastro Procedures: EGD Vital Signs: Date Time Temp Pulse Resp B/P Pulse Ox O2 Delivery O2 Flow Rate FiO2 09/29/16 07:18 Room Air 09/29/16 06:55 36.4 60 16 132/50 95 Room Air 09/28/16 23:15 36.7 71 16 155/81 96 09/28/16 23:15 Room Air 09/28/16 22:15 36.7 78 18 159/89 95 09/28/16 21:45 36.5 69 18 135/80 98 09/28/16 21:15 36.5 75 18 132/78 95 09/28/16 21:11 79 150/83 09/28/16 21:00 36.5 97 18 150/83 96 09/28/16 21:00 36.5 97 18 150/83 96 09/28/16 20:41 36.7 75 18 146/94 95 09/28/16 20:00 36.7 76 18 150/89 95 09/28/16 20:00 36.7 76 18 150/89 95 09/28/16 19:00 36.9 75 18 128/79 93 09/28/16 18:30 36.6 74 18 115/70 95 09/28/16 17:55 36.6 69 18 134/72 95 09/28/16 17:15 Room Air 09/28/16 16:25 36.8 75 20 133/72 96 Room Air 09/28/16 16:00 96 Room Air 09/28/16 12:00 37.0 75 19 119/69 95 Room Air 09/28/16 12:00 96 Room Air Lab Results: Results Past 24 Hours Test 09/29/16 05:35 Range/Units White Blood Count 4.12 4.8-10.8 K/uL Red Blood Count 3.03 4.7-6.1 M/uL Hemoglobin 9.3 14.0-18.0 g/dL Hematocrit 27.0 42-52 % Mean Corpuscular Volume 89.1 80-100 fL Mean Corpuscular Hemoglobin 30.7 25-34 pg Mean Corpuscular Hemoglobin Concent 34.4 32-36 g/dl RDW Standard Deviation 55.1 36.4-46.3 fL RDW Coefficient of Variation 17.0 11.5-14.5 % Platelet Count 35 130-400 K/uL Mean Platelet Volume 11.9 7.4-10.4 fL Sodium Level 141 136-145 mmol/L Potassium Level 3.8 3.5-5.1 mmol/L Chloride Level 108 98-107 mmol/L Carbon Dioxide Level 25 21-32 mmol/L Anion Gap 8.0 3-11 mmol/L Blood Urea Nitrogen 26 7-18 mg/dl Creatinine 1.60 0.60-1.40 mg/dl Est Creatinine Clear Calc Drug Dose 36.2 ml/min Estimated GFR () 46.8 Estimated GFR (Non- 40.4 BUN/Creatinine Ratio 16.0 10-20 Random Glucose 97 70-99 mg/dl Calcium Level 7.6 8.5-10.1 mg/dl Phosphorus Level 2.4 2.5-4.9 mg/dl Magnesium Level 1.9 1.8-2.4 mg/dl
[2016-09-29 12:58] VITALS: BP 151/83; PULSE 80
[2016-09-29 14:58] VITALS: BP 135/72; PULSE 71; TEMP 36.9; O2SAT 95
[2016-09-29] MEDS: SODIUM BICARBONATE 650 MG TAB PO SCH (15:52)
[2016-09-29] MEDS: CARVEDILOL 12.5 MG TAB PO SCH ×2 (15:52→20:15)
[2016-09-29 16:00] VITALS: O2SAT 95
[2016-09-29] MEDS: TAMSULOSIN HCL 0.4 MG CAP PO SCH (20:13)
[2016-09-29 20:14] VITALS: BP 151/74; PULSE 72
[2016-09-29 22:47] VITALS: BP 139/76; PULSE 64; TEMP 36.7; O2SAT 94
[2016-09-30] MEDS: LEVOTHYROXINE 75 MCG TAB PO SCH (06:02)
[2016-09-30 07:08] VITALS: BP 159/76; PULSE 61; TEMP 36.4; O2SAT 96
[2016-09-30] MEDS: CIPROFLOXACIN 500 MG TAB PO SCH ×2 (08:33→21:09)
[2016-09-30] MEDS: PANTOprazole SOD 40 MG TAB PO SCH ×2 (08:33→21:09)
[2016-09-30] MEDS: MAGNESIUM OXIDE 400 MG TAB PO SCH ×2 (08:33→21:09)
[2016-09-30] MEDS: RIFAXIMIN TAB 550 MG TAB PO SCH ×2 (08:33→21:09)
--- NOTE | 2016-09-30 11:32 | Progress Note ---
Internal Med Progress Note Date of Service: September 30, 2016. Provider Documentation: SUBJECTIVE: The patient was seen and examined Generally weak but denies any symptoms Much better today Looks better today OBJECTIVE: Vital Signs-as noted below Exam: General-No distress at rest but weak Brighter today Eyes-normal ENT-normal Neck-supple Lungs-clear to auscultate bilaterally Heart-Regular,no murmur appreciated Abdomen-Mildly distended,no masses,bowel sound present Extremities-Trace edema bilaterally Neuro-Pleasantly confused Lab data as noted below. ASSESSMENT & PLAN: GI BLEED Admitted with questionable Hematemesis and possible rectal bleed Hx esophageal varices and erosive gastropathy per EGD in July. Received 1 units platelet and 1 unit of PRBC No active bleeding noted GI input appreciated S/P EGD-type ii esophageal varices ,no active bleeding On IV pantoprazole, octreotide infusion, cefepime. Clinically stable but remains weak and lethargic Hb dropped to 7.7 again today 09/28/16 Received 2 units of PRBC on 09/28/16 Feels a lot better today Hepatic Encephalopathy ALTERED MENTAL STATUS Continue lactulose. Clinically a little better No more confusion but very lethargic NONALCOHOLIC CIRRHOSIS Portal hypertension / grade II esophageal varices. Due to nonalcoholic fatty liver disease Continue follow with Gastro Continue current medications GERD Continue PPI. CORONARY ARTERY DISEASE Asymptomatic EKG did not show any ischemic change Continue carvedilol with hold parameters. PAROXYSMAL ATRIAL FIBRILLATION Currently in sinus rhythm. Continue carvedilol with hold parameters. Not a candidate for anticoagulation due to chronic GI blood loss. HYPERTENSION BP stable Continue to hold amlodipine Continue carvedilol with hold parameters. CKD III Serum creatinine 1.7 on admission Creatine baseline between 1.3 - 1.9. creatine 1.6 this morning Avoid nephrotoxic agent Serum creatinine normalized HYPOTHYROIDISM Continue levothyroxine. 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 SCD's. Ambulate as able. RESUSCITATION STATUS DNR He has a living will. DISPOSITION Admit to Telemetry Unit. Expected return to [facility] for skilled care when medically stable for discharge. Daughter updated Continue PT/OT -likely to be discharged tomorrow if stable . Consultants: Gastro Procedures: EGD Vital Signs: Date Time Temp Pulse Resp B/P Pulse Ox O2 Delivery O2 Flow Rate FiO2 09/30/16 07:10 Room Air 09/30/16 07:08 36.4 61 16 159/76 96 Room Air 09/29/16 22:47 36.7 64 16 139/76 94 Room Air 09/29/16 20:14 72 151/74 09/29/16 19:23 Room Air 09/29/16 16:00 95 Room Air 09/29/16 14:58 36.9 71 18 135/72 95 Room Air 09/29/16 12:58 80 151/83
[2016-09-30 12:21] VITALS: BP 126/76; PULSE 67
[2016-09-30] MEDS: CARVEDILOL 12.5 MG TAB PO SCH ×2 (12:23→21:09)
[2016-09-30] MEDS: SODIUM BICARBONATE 650 MG TAB PO SCH (12:23)
[2016-09-30] MEDS: HYDROCODONE/ACETAMOPHEN 5/325MG TAB PO PRN (13:12)
[2016-09-30 15:20] VITALS: BP 145/73; PULSE 71; TEMP 36.5; O2SAT 96
[2016-09-30 21:07] VITALS: BP 151/78; PULSE 64
[2016-09-30] MEDS: TAMSULOSIN HCL 0.4 MG CAP PO SCH (21:09)
[2016-09-30 23:05] VITALS: BP 154/84; PULSE 66; TEMP 36.6; O2SAT 94
[2016-10-01] VITALS (8 sets, daily range): BP systolic 128–169; BP diastolic 74–88; PULSE 62–93; TEMP 36.4–36.7; O2SAT 93–95
[2016-10-01] MEDS: LEVOTHYROXINE 75 MCG TAB PO SCH (05:23)
[2016-10-01 07:44] LABS: HEMATOCRIT 27.1 % (42-52); MEAN CORPUSCULAR HEMOGLOBIN 29.6 pg (25-34); MEAN CORPUSCULAR HGB CONC 32.8 g/dl (32-36); MEAN PLATELET VOLUME 10.7 fL (7.4-10.4); PLATELET COUNT 37 K/uL (130-400); RED BLOOD COUNT 3.01 M/uL (4.7-6.1); WHITE BLOOD COUNT 2.81 K/uL (4.8-10.8)
[2016-10-01 07:57] LABS: BUN/CREATININE RATIO 11.4 (10-20); CALCIUM 7.9 mg/dl (8.5-10.1); CREATININE 1.6 mg/dl (0.60-1.40); MAGNESIUM 1.8 mg/dl (1.8-2.4); PHOSPHORUS 2.7 mg/dl (2.5-4.9); POTASSIUM 3.8 mmol/L (3.5-5.1)
[2016-10-01] MEDS: CIPROFLOXACIN 500 MG TAB PO SCH ×2 (08:39→20:38)
[2016-10-01] MEDS: MAGNESIUM OXIDE 400 MG TAB PO SCH ×2 (08:39→20:38)
[2016-10-01] MEDS: ALLOPURINOL 100 MG TAB PO SCH (08:39)
[2016-10-01] MEDS: PANTOprazole SOD 40 MG TAB PO SCH ×2 (08:39→20:39)
[2016-10-01] MEDS: RIFAXIMIN TAB 550 MG TAB PO SCH ×2 (08:39→21:16)
[2016-10-01] MEDS: SODIUM BICARBONATE 650 MG TAB PO SCH (11:21)
[2016-10-01] MEDS: CARVEDILOL 12.5 MG TAB PO SCH ×2 (11:23→20:38)
--- NOTE | 2016-10-01 12:52 | Progress Note ---
Internal Med Progress Note Date of Service: October 01, 2016. Provider Documentation: SUBJECTIVE: The patient was seen and examined Looks much better Denies any complaints OBJECTIVE: Vital Signs-as noted below Exam: General-No distress at rest but weak Weakness seems lot better Eyes-normal ENT-normal Neck-supple Lungs-clear to auscultate bilaterally with decreased breath sound Heart-Regular,no murmur appreciated Abdomen-Mildly distended,no masses,bowel sound present Extremities-Trace edema bilaterally Neuro-Pleasantly confused Lab data as noted below. ASSESSMENT & PLAN: GI BLEED Admitted with questionable Hematemesis and possible rectal bleed Hx esophageal varices and erosive gastropathy per EGD in July. Received 1 units platelet and 1 unit of PRBC GI input appreciated S/P EGD-type ii esophageal varices ,no active bleeding Was on IV pantoprazole, octreotide infusion, cefepime. Clinically stable but remains weak and lethargic Hb dropped to 7.7 again today 09/28/16 Received 2 units of PRBC on 09/28/16 Has been on Ciprofloxacin as per GI Feels a lot better today Hb remains stable Ready to be discharged today Hepatic Encephalopathy ALTERED MENTAL STATUS Continue Refaxan Clinically a little better No more confusion but very lethargic NONALCOHOLIC CIRRHOSIS Portal hypertension / grade II esophageal varices. Due to nonalcoholic fatty liver disease Continue follow with Gastro Continue current medications GERD Continue PPI. CORONARY ARTERY DISEASE EKG did not show any ischemic change Continue carvedilol with hold parameters. DEnies any symptoms PAROXYSMAL ATRIAL FIBRILLATION Currently in sinus rhythm. Continue carvedilol with hold parameters. Not a candidate for anticoagulation due to chronic GI blood loss. Remains in SR and rate controlled HYPERTENSION BP stable Continue to hold amlodipine Continue carvedilol with hold parameters. CKD III Serum creatinine 1.7 on admission Creatine baseline between 1.3 - 1.9. creatine 1.6 this morning Avoid nephrotoxic agent Serum creatinine normalized HYPOTHYROIDISM Continue levothyroxine. 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 SCD's. Ambulate as able. RESUSCITATION STATUS DNR He has a living will. DISPOSITION Admit to Telemetry Unit. Expected return to [facility] for skilled care when medically stable for discharge. Daughter updated Continue PT/OT -likely to be discharged tomorrow if stable . Consultants: Gastro Procedures: EGD Vital Signs: Date Time Temp Pulse Resp B/P Pulse Ox O2 Delivery O2 Flow Rate FiO2 10/01/16 11:52 36.4 92 16 128/74 94 Room Air 10/01/16 11:22 93 145/88 10/01/16 08:11 95 Room Air 10/01/16 07:53 36.4 66 16 161/74 95 Room Air 10/01/16 07:30 Room Air 10/01/16 00:25 Room Air 09/30/16 23:05 36.6 66 18 154/84 94 Room Air 09/30/16 21:07 64 151/78 09/30/16 16:00 Room Air 09/30/16 15:20 36.5 71 18 145/73 96 Room Air Lab Results: Results Past 24 Hours Test 10/01/16 06:50 Range/Units White Blood Count 2.81 4.8-10.8 K/uL Red Blood Count 3.01 4.7-6.1 M/uL Hemoglobin 8.9 14.0-18.0 g/dL Hematocrit 27.1 42-52 % Mean Corpuscular Volume 90.0 80-100 fL Mean Corpuscular Hemoglobin 29.6 25-34 pg Mean Corpuscular Hemoglobin Concent 32.8 32-36 g/dl RDW Standard Deviation 55.8 36.4-46.3 fL RDW Coefficient of Variation 17.0 11.5-14.5 % Platelet Count 37 130-400 K/uL Mean Platelet Volume 10.7 7.4-10.4 fL Sodium Level 141 136-145 mmol/L Potassium Level 3.8 3.5-5.1 mmol/L Chloride Level 108 98-107 mmol/L Carbon Dioxide Level 26 21-32 mmol/L Anion Gap 7.0 3-11 mmol/L Blood Urea Nitrogen 18 7-18 mg/dl Creatinine 1.60 0.60-1.40 mg/dl Est Creatinine Clear Calc Drug Dose 36.2 ml/min Estimated GFR () 46.8 Estimated GFR (Non- 40.4 BUN/Creatinine Ratio 11.4 10-20 Random Glucose 83 70-99 mg/dl Calcium Level 7.9 8.5-10.1 mg/dl Phosphorus Level 2.7 2.5-4.9 mg/dl Magnesium Level 1.8 1.8-2.4 mg/dl
[2016-10-01] MEDS: TAMSULOSIN HCL 0.4 MG CAP PO SCH (20:38)
[2016-10-02] VITALS (7 sets, daily range): BP systolic 108–162; BP diastolic 64–82; PULSE 62–85; TEMP 36.3–36.9; O2SAT 94–96
[2016-10-02] MEDS: LEVOTHYROXINE 75 MCG TAB PO SCH (05:57)
[2016-10-02] MEDS: PANTOprazole SOD 40 MG TAB PO SCH ×2 (08:02→20:29)
[2016-10-02] MEDS: CIPROFLOXACIN 500 MG TAB PO SCH ×2 (08:02→20:29)
[2016-10-02] MEDS: MAGNESIUM OXIDE 400 MG TAB PO SCH ×2 (08:03→20:29)
[2016-10-02] MEDS: RIFAXIMIN TAB 550 MG TAB PO SCH ×2 (08:03→20:29)
[2016-10-02] MEDS: HYDROCODONE/ACETAMOPHEN 5/325MG TAB PO PRN (08:06)
--- NOTE | 2016-10-02 12:05 | Progress Note ---
Internal Med Progress Note Date of Service: October 02, 2016. Provider Documentation: SUBJECTIVE: The patient was seen and examined Looks much better Denies any complaints Ready to be discharged OBJECTIVE: Vital Signs-as noted below Exam: General-No distress at rest but weak Weakness seems lot better Eyes-normal ENT-normal Neck-supple Lungs-clear to auscultate bilaterally with decreased breath sound Heart-Regular,no murmur appreciated Abdomen-Mildly distended,no masses,bowel sound present Extremities-Trace edema bilaterally Neuro-Pleasantly confused Lab data as noted below. ASSESSMENT & PLAN: GI BLEED Admitted with questionable Hematemesis and possible rectal bleed Hx esophageal varices and erosive gastropathy per EGD in July. Received 1 units platelet and 1 unit of PRBC GI input appreciated S/P EGD-type ii esophageal varices ,no active bleeding Was on IV pantoprazole, octreotide infusion, cefepime. Clinically stable but remains weak and lethargic Hb dropped to 7.7 again today 09/28/16 Received 2 units of PRBC on 09/28/16 Has been on Ciprofloxacin as per GI Feels a lot better today Hb remains stable and no more bleeding Ready to be discharged Hepatic Encephalopathy ALTERED MENTAL STATUS Continue Refaxan Clinically a little better No more confusion but very lethargic Continue current treatment as per GI NONALCOHOLIC CIRRHOSIS Portal hypertension / grade II esophageal varices. Due to nonalcoholic fatty liver disease Continue follow with Gastro Continue current medications GERD Continue PPI. CORONARY ARTERY DISEASE EKG did not show any ischemic change Continue carvedilol with hold parameters. DEnies any symptoms PAROXYSMAL ATRIAL FIBRILLATION Currently in sinus rhythm. Continue carvedilol with hold parameters. Not a candidate for anticoagulation due to chronic GI blood loss. Remains in SR and rate controlled HYPERTENSION BP stable Continue to hold amlodipine Continue carvedilol with hold parameters. CKD III Serum creatinine 1.7 on admission Creatine baseline between 1.3 - 1.9. creatine 1.6 this morning Avoid nephrotoxic agent Serum creatinine normalized HYPOTHYROIDISM Continue levothyroxine. 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 SCD's. Ambulate as able. RESUSCITATION STATUS DNR He has a living will. DISPOSITION Admit to Telemetry Unit. Expected return to [facility] for skilled care when medically stable for discharge. Daughter updated Continue PT/OT -likely to be discharged tomorrow if stable . Consultants: Gastro Procedures: EGD Likely to be discharged to [facility] when accepted Vital Signs: Date Time Temp Pulse Resp B/P Pulse Ox O2 Delivery O2 Flow Rate FiO2 10/02/16 11:56 36.6 82 14 108/64 95 Room Air 10/02/16 07:45 Room Air 10/02/16 07:40 36.4 72 14 152/82 94 Room Air 10/01/16 23:59 Room Air 10/01/16 22:45 36.6 62 18 157/77 93 Room Air 10/01/16 22:34 157/77 10/01/16 16:26 36.7 66 18 169/84 95 Room Air 10/01/16 16:06 94 Room Air
[2016-10-02] MEDS: SODIUM BICARBONATE 650 MG TAB PO SCH (12:07)
[2016-10-02] MEDS: CARVEDILOL 12.5 MG TAB PO SCH ×2 (12:07→20:28)
[2016-10-02 19:17] LABS: BUN/CREATININE RATIO 12.2 (10-20); CALCIUM 7.5 mg/dl (8.5-10.1); CREATININE 1.7 mg/dl (0.60-1.40); POTASSIUM 4.3 mmol/L (3.5-5.1)
[2016-10-02] MEDS: TAMSULOSIN HCL 0.4 MG CAP PO SCH (20:29)
[2016-10-03 05:40] LABS: HEMATOCRIT 27.7 % (42-52); MEAN CELL VOLUME 89.6 fL (80-100); MEAN CORPUSCULAR HEMOGLOBIN 29.8 pg (25-34); MEAN CORPUSCULAR HGB CONC 33.2 g/dl (32-36); RED BLOOD COUNT 3.09 M/uL (4.7-6.1); WHITE BLOOD COUNT 2.61 K/uL (4.8-10.8)
[2016-10-03 05:42] LABS: MEAN PLATELET VOLUME 10.9 fL (7.4-10.4); PLATELET COUNT 32 K/uL (130-400)
[2016-10-03] MEDS: LEVOTHYROXINE 75 MCG TAB PO SCH (06:04)
[2016-10-03 06:05] LABS: CALCIUM 7.8 mg/dl (8.5-10.1); CREATININE 1.5 mg/dl (0.60-1.40); POTASSIUM 3.9 mmol/L (3.5-5.1)
[2016-10-03 07:39] VITALS: BP 172/84; PULSE 70; TEMP 36.7; O2SAT 96
[2016-10-03] MEDS: ALLOPURINOL 100 MG TAB PO SCH (08:37)
[2016-10-03] MEDS: CIPROFLOXACIN 500 MG TAB PO SCH (08:37)
[2016-10-03] MEDS: MAGNESIUM OXIDE 400 MG TAB PO SCH (08:37)
[2016-10-03] MEDS: RIFAXIMIN TAB 550 MG TAB PO SCH (08:37)
[2016-10-03] MEDS: PANTOprazole SOD 40 MG TAB PO SCH (08:37)
[2016-10-03] MEDS: CARVEDILOL 12.5 MG TAB PO SCH (08:37)
[2016-10-03 09:24] VITALS: O2SAT 96
--- NOTE | 2016-10-03 11:59 | Progress Note ---
Internal Med Progress Note Date of Service: Oct 03, 2016. Provider Documentation: SUBJECTIVE: The patient was seen and examined Looks much better and wants to go to [facility] today Denies any complaints No problem with urine output OBJECTIVE: Vital Signs-as noted below Exam: General-No distress at rest but weak Weakness seems lot better Eyes-normal ENT-normal Neck-supple Lungs-clear to auscultate bilaterally with decreased breath sound Heart-Regular,no murmur appreciated Abdomen-Mildly distended,no masses,bowel sound present Extremities-Trace edema bilaterally Neuro-Pleasantly confused Lab data as noted below. ASSESSMENT & PLAN: GI BLEED Admitted with questionable Hematemesis and possible rectal bleed Hx esophageal varices and erosive gastropathy per EGD in July. Received 1 units platelet and 1 unit of PRBC GI input appreciated S/P EGD-type ii esophageal varices ,no active bleeding Was on IV pantoprazole, octreotide infusion, cefepime. Clinically stable but remains weak and lethargic Hb dropped to 7.7 again today 09/28/16 Received 2 units of PRBC on 09/28/16 Has been on Ciprofloxacin as per GI -will stop today 10/03/16 Feels a lot better today abnd wants to leave the hospital today Hb remains stable and no more bleeding Hb >9 today and stable for the last few days Hepatic Encephalopathy ALTERED MENTAL STATUS Continue Refaxan Clinically a little better No more confusion but very lethargic Continue current treatment as per GI Back Pain (note from previous admission) L1 Compression fracture due to fall CT showed Age-indeterminate mild compression fracture at L1 which demonstrates 2 mm of retropulsion of the posterior cortex Orthopedic consulted, No surgical intervention at this time because Pt is not a good surgical candidate Recommended TLSO brace to be worn when he is out of bed and begins ambulation Orthotic consulted Continue PT/OT-has the brace NONALCOHOLIC CIRRHOSIS Portal hypertension / grade II esophageal varices. Due to nonalcoholic fatty liver disease Continue follow with Gastro Continue current medications GERD Continue PPI. CORONARY ARTERY DISEASE EKG did not show any ischemic change Continue carvedilol with hold parameters. DEnies any symptoms PAROXYSMAL ATRIAL FIBRILLATION Currently in sinus rhythm. Continue carvedilol with hold parameters. Not a candidate for anticoagulation due to chronic GI blood loss. Remains in SR and rate controlled HYPERTENSION BP stable Continue to hold amlodipine Continue carvedilol with hold parameters. CKD III Serum creatinine 1.7 on admission Creatine baseline between 1.3 - 1.9. creatine 1.6 this morning Avoid nephrotoxic agent Serum creatinine normalized HYPOTHYROIDISM Continue levothyroxine. 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 SCD's. Ambulate as able. RESUSCITATION STATUS DNR He has a living will. DISPOSITION Admit to Telemetry Unit. Expected return to [facility] for skilled care when medically stable for discharge. Daughter updated Continue PT/OT -likely to be discharged tomorrow if stable . Consultants: Gastro Procedures: EGD Likely to be discharged to [facility] when accepted Will discharge today Vital Signs: Date Time Temp Pulse Resp B/P (MAP) Pulse Ox O2 Delivery O2 Flow Rate FiO2 10/03/16 09:24 96 Room Air 10/03/16 07:39 36.7 70 14 172/84 (113) 96 Room Air 10/02/16 23:05 36.9 76 18 156/79 (104) 96 Room Air 10/02/16 20:25 85 162/75 (104) 10/02/16 19:30 Room Air 10/02/16 16:00 96 Room Air 10/02/16 14:55 36.3 62 18 121/71 (88) 96 Room Air 10/02/16 14:16 95 Room Air Lab Results: Results Past 24 Hours Test 10/02/16 18:43 10/03/16 05:30 Range/Units Sodium Level 138 141 136-145 mmol/L Potassium Level 4.3 3.9 3.5-5.1 mmol/L Chloride Level 104 107 98-107 mmol/L Carbon Dioxide Level 28 27 21-32 mmol/L Anion Gap 6.0 7.0 3-11 mmol/L Blood Urea Nitrogen 21 20 7-18 mg/dl Creatinine 1.70 1.50 0.60-1.40 mg/dl Est Creatinine Clear Calc Drug Dose 34.1 38.6 ml/min Estimated GFR () 43.5 50.6 Estimated GFR (Non- 37.5 43.7 BUN/Creatinine Ratio 12.2 13.0 10-20 Random Glucose 121 83 70-99 mg/dl Calcium Level 7.5 7.8 8.5-10.1 mg/dl White Blood Count 2.61 4.8-10.8 K/uL Red Blood Count 3.09 4.7-6.1 M/uL Hemoglobin 9.2 14.0-18.0 g/dL Hematocrit 27.7 42-52 % Mean Corpuscular Volume 89.6 80-100 fL Mean Corpuscular Hemoglobin 29.8 25-34 pg Mean Corpuscular Hemoglobin Concent 33.2 32-36 g/dl RDW Standard Deviation 54.8 36.4-46.3 fL RDW Coefficient of Variation 16.7 11.5-14.5 % Platelet Count 32 130-400 K/uL Mean Platelet Volume 10.9 7.4-10.4 fL
[2016-10-03] MEDS ORDERED: ALBINS INH (12:03)
[2016-10-03] MEDS ORDERED: XFX550 PO (12:03)
[2016-10-03] MEDS ORDERED: HYDR-5688 PO (12:03)
--- NOTE | 2016-10-03 12:09 | Discharge Instructions ---
Discharge Instructions Date of Service Oct 03, 2016. Admission Reason for Admission: Gi Bleed Discharge Discharge Diagnosis / Problem: GI bleed-resolved, S/P 3 units of PRBC and 1 unit of platelet,Cirrhosis Discharge Goals Goal(s): Prevent Disease Progression Activity Recommendations Activity Level: Assistance Required Therapies: Physical Therapy, Occupational Therapy . Additional Information Patient informed of condition: Yes Advance Directives: No DNR: Yes Level of Care: Skilled Communicable Disease: No Prognosis: Stable Oxygen at (LPM): 2 liter/min via NC as needed Allen Catheter: No Instructions / Follow-Up Instructions / Follow-Up As per Roxanne lopez provider,Please keep appointment with Neurosurgery at [facility] Diet Patient's current hospital diet: AHA Diet (Heart Healthy) Discharge Diet Recommended Diet: AHA Diet (Heart Healthy) Fluid Restriction: 1500 ml (6 cups) Procedures Procedures Performed: EGD WITH BANDING Pending Studies Studies pending at discharge: no Laboratory Results Hemoglobin A1c Test 09/17/16 06:40 Range/Units Estimated Average Glucose 94 mg/dl Hemoglobin A1c 4.9 4.5-5.6 % Medical Emergencies . Who to Call and When: Medical Emergencies: If at any time you feel your situation is an emergency, please call 911 immediately. . Non-Emergent Contact Non-Emergency issues call your: Primary Care Provider . Past History Medical & Surgical History: (1) History of non-ST elevation myocardial infarction (NSTEMI) (2) Hypertension (3) Paroxysmal atrial fibrillation (4) Hypothyroidism (5) Thrombocytopenia (6) CKD (chronic kidney disease), stage III (7) Cirrhosis (8) Esophageal varices (9) GERD (gastroesophageal reflux disease) (10) GI bleed (11) H/O colonoscopy (12) H/O esophagogastroduodenoscopy (13) History of esophagogastroduodenoscopy (EGD) . "Provider Documentation" section prepared by August Thompson. . Core Measure Problem Core Measures: None
[2016-10-03] MEDS: SODIUM BICARBONATE 650 MG TAB PO SCH (12:26)
[2016-10-03] MEDS: HYDROCODONE/ACETAMOPHEN 5/325MG TAB PO PRN (12:52)
[2016-10-03 13:35] VITALS: BP 172/84; PULSE 70; TEMP 36.7; O2SAT 96
[2016-10-03 15:57] VITALS: BP 142/80; PULSE 72; TEMP 36.3; O2SAT 96
--- NOTE | 2016-10-04 12:58 | Discharge Summary ---
Discharge Summary Date of Service Oct 04, 2016. Discharge Summary Admission Date: September 25, 2016 at 17:51 Discharge Date: Oct 03, 2016 Principal Diagnosis: GI bleed-resolved, S/P 3 units of PRBC and 1 unit of platelet,Cirrhosis Secondary Diagnoses/Problems: Please see H&P and Hospital Progress note Procedures: EGD Consultations: Gastro Medication Reconciliation New Medications: Albuterol Sulf (Albuterol Sulfate) 2.5 Mg/3 Ml Nebu 2.5 MG INH Q6R PRN for Breathing for 10 Days, #30 Rifaximin (Xifaxan) 550 Mg Tab 550 MG PO BID for 30 Days, #60 TAB Continued Medications: Allopurinol (Zyloprim) 100 Mg Tab 100 MG PO Q2D, TAB Amlodipine Besylate (Amlodipine Besylate) 5 Mg Tab 5 MG PO DAILY for 30 Days, #30 TAB Atorvastatin (Lipitor) 80 Mg Tab 40 MG PO HS, TAB Carvedilol (Coreg) 25 Mg Tab 12.5 MG PO BID@1200,2100, TAB NOON & EVENING Ferrous Sulfate (Kp Ferrous Sulfate) 325 Mg Tab 1 TAB PO BID for 30 Days, #60 TAB 3 Refills Hydrocodone/Acetaminophen 5MG/325MG ([place] 5MG/325MG) Tab 1 TABLET PO Q6H PRN for Pain for 10 Days, #20 TAB (This prescription has been renewed) PRN PAIN Levothyroxine Sodium (Levothyroxine Sodium) 75 Mcg Tab 75 MCG PO QAM for 90 Days, #90 TAB 3 Refills Magnesium Oxide (Mg Supplement (Magnesium Oxide) 400 Mg Tab 400 TAB PO BID Omeprazole (Prilosec) 20 Mg Capcr 20 MG PO QAM, CAP Sodium Bicarbonate (Sodium Bicarbonate) 650 Mg Tab 1 TAB PO DAILY AT NOON Tamsulosin Hcl (Flomax) 0.4 Mg Cap 0.4 MG PO HS, CAP Admission Information HPI (per Admitting provider): 81 YO male followed by Dr. Gooden. 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 Last EGD was performed on 07/12/16 and revealed grade II esophageal varices and nonbleeding erosive gastropathy. Last hospitalized 09/15/16 after a fall with L1 compression fracture. No signs of active GI bleeding during that hospital stay. Transferred to [facility] for skilled care on 09/15/16. 2 episodes of nausea and vomiting today with reported hematemesis. Patient unable to describe nature of emesis. Also had reported melena mixed with fresh blood per rectum. Sent to ED for evaluation. Hemodynamically stable since arrival to ED. No further episodes of nausea, vomiting, diarrhea. Denies abdominal pain. No nausea or vomiting. Past Medical/Surgical History Chronic and Resolved Medical Problems: (1) Anemia Status: Chronic (2) BPH (benign prostatic hypertrophy) Status: Chronic (3) Cirrhosis Permanent Comment: nonalcoholic fatty liver disease Status: Chronic (4) CKD (chronic kidney disease), stage III Status: Chronic (5) Dyslipidemia Status: Chronic (6) Esophageal varices Permanent Comment: Mar 2015- small varices, mild erosive antral gastritis Status: Chronic (7) GERD (gastroesophageal reflux disease) Status: Chronic (8) History of non-ST elevation myocardial infarction (NSTEMI) Permanent Comment: in October 2010 secondary to severe anemia Status: Chronic (9) Hypertension Status: Chronic (10) Hypothyroidism Status: Chronic (11) Paroxysmal atrial fibrillation Status: Chronic (12) Thrombocytopenia Status: Chronic Surgical Problems: (1) H/O colonoscopy Permanent Comment: 2010- adenomatous polyps; 11/2016- polyp, AVM's treated with thermal therapy and clipped, diverticulosis, hemorrhoids Status: Chronic (2) H/O esophagogastroduodenoscopy Permanent Comment: Mar 2015- small varices, mild erosive antral gastritis Status: Chronic . Family History FATHER Coronary artery disease MOTHER Tuberculosis Social History Smoking Status: Former Smoker Alcohol Use: none Drug Use: none Marital Status: Housing status: lives alone Occupational Status: retired Immunizations History of Influenza Vaccine: No History of Tetanus Vaccine?: Unknown History of Pneumococcal: No History of Hepatitis B Vaccine: No Allergies Coded Allergies: Lisinopril (Verified Allergy, Unknown, UNKNOWN, 09/25/16) Home Medications Scheduled Allopurinol (Zyloprim), 100 MG PO Q2D Amlodipine Besylate (Amlodipine Besylate), 5 MG PO DAILY Atorvastatin (Lipitor), 40 MG PO HS Carvedilol (Coreg), 12.5 MG PO BID@1200,2100 Ferrous Sulfate (Kp Ferrous Sulfate), 1 TAB PO BID Levothyroxine Sodium (Levothyroxine Sodium), 75 MCG PO QAM Magnesium Oxide (Mg Supplement (Magnesium Oxide), 400 TAB PO BID Omeprazole (Prilosec), 20 MG PO QAM Sodium Bicarbonate (Sodium Bicarbonate), 1 TAB PO DAILY AT NOON Tamsulosin Hcl (Flomax), 0.4 MG PO HS Scheduled PRN Hydrocodone/Acetaminophen 5MG/325MG ([place] 5MG/325MG), 1 TABLET PO Q6H PRN for Pain Review of Systems Constitutional: No fever, No weight loss Eyes: No diplopia, No worsening of vision ENT: + hearing loss Respiratory: No cough, No shortness of breath Cardiovascular: + edema, No chest pain Abdomen: + problem reported (as noted in HPI) Musculoskeletal: + problem reported (low back pain) Genitourinary - Male: + urinary frequency, No dysuria, No hematuria Neurologic: + memory loss Endocrine: + fatigue Hematologic / Lymphatic: + abnormal bleeding/bruising Physical Exam Vital Signs Date Time Temp Pulse Resp B/P Pulse Ox O2 Delivery O2 Flow Rate FiO2 09/25/16 20:20 36.4 71 22 138/73 96 09/25/16 18:30 36.7 76 18 143/79 97 Room Air 09/25/16 17:50 61 18 120/71 96 Room Air 09/25/16 16:51 55 13 126/65 97 Room Air 09/25/16 16:22 57 11 111/58 97 Room Air 09/25/16 14:51 58 09/25/16 14:46 36.9 61 18 105/66 94 Room Air General Appearance: no apparent distress, + pertinent finding (appears to be chronically ill) Head: normocephalic, atraumatic Eyes: PERRL, EOMI, sclerae normal, + pertinent finding (conjunctivae pale) ENT: + pertinent finding (hard of hearing; upper dentures; lower dentition poor) Neck: supple, no adenopathy, thyroid normal, no JVD, trachea midline Respiratory/Chest: lungs clear, no respiratory distress, no accessory muscle use Cardiovascular: regular rate, rhythm, no gallop, no JVD, + systolic murmur (II/ sys murmur at base), + abnormal peripheral pulses (diminished pedal pulses), + pertinent finding (trace pretibial edema) Abdomen/GI: normal bowel sounds, non tender, soft, no pulsatile mass, + abnormal rectal exam (melena in rectal vault per ED provider), + pertinent finding (slightly distended) Extremities/Musculoskelatal: no calf tenderness, normal capillary refill, + pedal edema (trace) Neurologic/Psych: biological engineer II-XII nml as tested (PERRL, EOMI), + disoriented, + pertinent finding (somnolent, dysarthric, + asterixis) Skin: normal color, warm/dry, no rash Lymphatic: no adenopathy (cervical) Diagnostics Laboratory Results Results Past 24 Hours Test 09/25/16 14:50 09/25/16 15:30 Range/Units White Blood Count 5.42 4.8-10.8 K/uL Red Blood Count 2.80 4.7-6.1 M/uL Hemoglobin 8.3 14.0-18.0 g/dL Hematocrit 25.8 42-52 % Mean Corpuscular Volume 92.1 80-100 fL Mean Corpuscular Hemoglobin 29.6 25-34 pg Mean Corpuscular Hemoglobin Concent 32.2 32-36 g/dl Platelet Count 31 130-400 K/uL Mean Platelet Volume 12.5 7.4-10.4 fL Neutrophils (%) (Auto) 79.5 % Lymphocytes (%) (Auto) 11.8 % Monocytes (%) (Auto) 4.4 % Eosinophils (%) (Auto) 3.7 % Basophils (%) (Auto) 0.4 % Neutrophils # (Auto) 4.31 1.4-6.5 K/uL Lymphocytes # (Auto) 0.64 1.2-3.4 K/uL Monocytes # (Auto) 0.24 0.11-0.59 K/uL Eosinophils # (Auto) 0.20 0-0.5 K/uL Basophils # (Auto) 0.02 0-0.2 K/uL RDW Standard Deviation 60.5 36.4-46.3 fL RDW Coefficient of Variation 17.8 11.5-14.5 % Immature Granulocyte % (Auto) 0.2 % Immature Granulocyte # (Auto) 0.01 0.00-0.02 K/uL Anisocytosis PRESENT Ovalocytes 1+ Prothrombin Time 11.5 9.0-12.0 SECONDS Prothromb Time International Ratio 1.1 0.9-1.1 Activated Partial Thromboplast Time 27.8 21.0-31.0 SECONDS Partial Thromboplastin Ratio 1.1 Sodium Level 146 136-145 mmol/L Potassium Level 4.3 3.5-5.1 mmol/L Chloride Level 112 98-107 mmol/L Carbon Dioxide Level 28 21-32 mmol/L Anion Gap 6.0 3-11 mmol/L Blood Urea Nitrogen 41 7-18 mg/dl Creatinine 1.70 0.60-1.40 mg/dl Est Creatinine Clear Calc Drug Dose 34.1 ml/min Estimated GFR () 43.5 Estimated GFR (Non- 37.5 BUN/Creatinine Ratio 24.3 10-20 Random Glucose 124 70-99 mg/dl Calcium Level 7.8 8.5-10.1 mg/dl Total Bilirubin 1.1 0.2-1 mg/dl Direct Bilirubin 0.3 0-0.2 mg/dl Aspartate Amino Transf (AST/SGOT) 35 15-37 U/L Alanine Aminotransferase (ALT/SGPT) 32 12-78 U/L Alkaline Phosphatase 114 45-117 U/L Total Protein 5.7 6.4-8.2 gm/dl Albumin 2.7 3.4-5.0 gm/dl Urine Color YELLOW Urine Appearance CLEAR CLEAR Urine pH 6.5 4.5-7.5 Urine Specific [place] 1.019 1.000-1.030 Urine Protein NEG NEG Urine Glucose (UA) NEG NEG Urine Ketones NEG NEG Urine Occult Blood NEG NEG Urine Nitrite NEG NEG Urine Bilirubin NEG NEG Urine Urobilinogen NEG NEG Urine Leukocyte Esterase NEG NEG Diagnostic Radiology SINGLE VIEW CHEST IMPRESSION: 1. Cardiomegaly with mild pulmonary vascular congestion. 2. No airspace consolidation or large pleural effusion is identified. Electronically signed by: Edu Box M.D. 09/25/2016 3:55 PM Dictated Date/Time: 09/25/2016 3:54 PM . EKG EKG performed at 15:43 reviewed and demonstrated SB at 56 / minute, first degree AV block, QTC 484 msec, no acute ST or T-wave abnormalities. . 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 Also has esophageal varices and erosive gastropathy per EGD in July. Hgb 8.3 compared to 8.5 on 09/23. Plts 31,000. INR & PTT normal. Hemodynamically stable in ED. Transfuse 1 bag pheresed platelets. Monitor H/H q 6 hrs. Transfuse as necessary to maintain adequate Hgb; reasonable goal would be Hgb > 8 in light of comorbidities. IV pantoprazole, octreotide infusion, cefepime. GI consulted. ALTERED MENTAL STATUS Probably due to hepatic encephalopathy. Rx with lactulose. CIRRHOSIS Attributed to nonalcoholic fatty liver disease. Associated with portal hypertension / grade II esophageal varices. Ongoing management per GI. GERD Continue PPI. CORONARY ARTERY DISEASE No anginal symptoms. No acute EKG changes. Continue carvedilol with hold parameters. PAROXYSMAL ATRIAL FIBRILLATION Currently in sinus rhythm. Continue carvedilol with hold parameters. No anticoagulation due to chronic GI blood loss. HYPERTENSION Hold amlodipine in light of GI bleed. Continue carvedilol with hold parameters. Follow and titrate Rx. CKD III Serum creatinine 1.7, compared to recent baseline of 1.3 - 1.9. Follow. HYPOTHYROIDISM Recent TSH normal. Continue levothyroxine. PITUITARY ADENOMA Recent endocrine evaluation showed normal levels of ACTH, TSH, prolactin, and FSH; LH was low. ANEMIA Multifactorial- acute + chronic blood loss, anemia of chronic disease. THROMBOCYTOPENIA Due to cirrhosis. VTE PROPHYLAXIS No anticoagulants due to GI bleed. SCD's. Ambulate as able. RESUSCITATION STATUS Discussed with daughters. He has a living will. He would not like resuscitation attempted in the event of a cardiopulmonary arrest. Therefore, code status = "Level 5" (DNR). DISPOSITION Admit to Telemetry Unit. Expected return to [facility] for skilled care when medically stable for discharge. . Advanced Directives Existing Living Will: Yes Existing Power of Presetter Operator: Yes VTE Prophylaxis VTE Risk Assessment Done? Y/N: Yes Risk Level: Moderate Given or contraindicated: SCD's <Electronically signed by Zhao Can M.D.> . Physical Exam (per Admitting): General Appearance: no apparent distress, + pertinent finding (appears to be chronically ill) Head: normocephalic, atraumatic Eyes: PERRL, EOMI, sclerae normal, + pertinent finding (conjunctivae pale) ENT: + pertinent finding (hard of hearing; upper dentures; lower dentition poor) Neck: supple, no adenopathy, thyroid normal, no JVD, trachea midline Respiratory/Chest: lungs clear, no respiratory distress, no accessory muscle use Cardiovascular: regular rate, rhythm, no gallop, no JVD, + systolic murmur ( II/ sys murmur at base), + abnormal peripheral pulses (diminished pedal pulses ), + pertinent finding (trace pretibial edema) Abdomen/GI: normal bowel sounds, non tender, soft, no pulsatile mass, + abnormal rectal exam (melena in rectal vault per ED provider), + pertinent finding (slightly distended) Extremities/Musculoskelatal: no calf tenderness, normal capillary refill, + pedal edema (trace) Neurologic/Psych: 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 Received 1 units platelet and 1 unit of PRBC GI input appreciated S/P EGD-type ii esophageal varices ,no active bleeding Was on IV pantoprazole, octreotide infusion, cefepime. Clinically stable but remains weak and lethargic Hb dropped to 7.7 again today 09/28/16 Received 2 units of PRBC on 09/28/16 Has been on Ciprofloxacin as per GI -will stop today 10/03/16 Feels a lot better today abnd wants to leave the hospital today Hb remains stable and no more bleeding Hb >9 today and stable for the last few days Hepatic Encephalopathy ALTERED MENTAL STATUS Continue Refaxan Clinically a little better No more confusion but very lethargic Continue current treatment as per GI Back Pain (note from previous admission) L1 Compression fracture due to fall CT showed Age-indeterminate mild compression fracture at L1 which demonstrates 2 mm of retropulsion of the posterior cortex Orthopedic consulted, No surgical intervention at this time because Pt is not a good surgical candidate Recommended TLSO brace to be worn when he is out of bed and begins ambulation Orthotic consulted Continue PT/OT-has the brace NONALCOHOLIC CIRRHOSIS Portal hypertension / grade II esophageal varices. Due to nonalcoholic fatty liver disease Continue follow with Gastro Continue current medications GERD Continue PPI. CORONARY ARTERY DISEASE EKG did not show any ischemic change Continue carvedilol with hold parameters. DEnies any symptoms PAROXYSMAL ATRIAL FIBRILLATION Currently in sinus rhythm. Continue carvedilol with hold parameters. Not a candidate for anticoagulation due to chronic GI blood loss. Remains in SR and rate controlled HYPERTENSION BP stable Continue to hold amlodipine Continue carvedilol with hold parameters. CKD III Serum creatinine 1.7 on admission Creatine baseline between 1.3 - 1.9. creatine 1.6 this morning Avoid nephrotoxic agent Serum creatinine normalized HYPOTHYROIDISM Continue levothyroxine. 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 (no need for medical management) Will need formal visual magdaleno by neuroophthalmology-[place] Will need Neuroendocrine and Neurosurgery appointment in [place] Asymptomatic now ANEMIA due to chronic disease and chronic GI bleed Hb dropped to 7.5 on 09/28/16 Received a total of 3 units of PRBC THROMBOCYTOPENIA Related to liver cirrhosis/splenomegaly Received 1 unit platelet yesterday continue monitor platelet-36 on 09/28/16 VTE PROPHYLAXIS No anticoagulants due to GI bleed. SCD's. Ambulate as able. RESUSCITATION STATUS DNR He has a living will. DISPOSITION Admit to Telemetry Unit. Expected return to [facility] for skilled care when medically stable for discharge. Daughter updated Continue PT/OT -likely to be discharged tomorrow if stable . Consultants: Gastro Procedures: EGD Likely to be discharged to [facility] when accepted Will discharge today Total time spent on discharge = 35 minutes This includes examination of the patient, discharge planning, medication reconciliation, and communication with other providers. Discharge Instructions Date of Service Oct 03, 2016. Admission Reason for Admission: Gi Bleed Discharge Discharge Diagnosis / Problem: GI bleed-resolved, S/P 3 units of PRBC and 1 unit of platelet,Cirrhosis Discharge Goals Goal(s): Prevent Disease Progression Activity Recommendations Activity Level: Assistance Required Therapies: Physical Therapy, Occupational Therapy . Additional Information Patient informed of condition: Yes Advance Directives: No DNR: Yes Level of Care: Skilled Communicable Disease: No Prognosis: Stable Oxygen at (LPM): 2 liter/min via NC as needed Allen Catheter: No Instructions / Follow-Up Instructions / Follow-Up As per [facility] provider,Please keep appointment with Neurosurgery at [place] Current Hospital Diet Patient's current hospital diet: AHA Diet (Heart Healthy) Discharge Diet Recommended Diet: AHA Diet (Heart Healthy) Fluid Restriction: 1500 ml (6 cups) Procedures Procedures Performed: EGD WITH BANDING Pending Studies Studies pending at discharge: no Laboratory Results Hemoglobin A1c Test 09/17/16 06:40 Range/Units Estimated Average Glucose 94 mg/dl Hemoglobin A1c 4.9 4.5-5.6 % Medical Emergencies . Who to Call and When: Medical Emergencies: If at any time you feel your situation is an emergency, please call 911 immediately. . Non-Emergent Contact Non-Emergency issues call your: Primary Care Provider . Past History Medical & Surgical History: (1) History of non-ST elevation myocardial infarction (NSTEMI) (2) Hypertension (3) Paroxysmal atrial fibrillation (4) Hypothyroidism (5) Thrombocytopenia (6) CKD (chronic kidney disease), stage III (7) Cirrhosis (8) Esophageal varices (9) GERD (gastroesophageal reflux disease) (10) GI bleed (11) H/O colonoscopy (12) H/O esophagogastroduodenoscopy (13) History of esophagogastroduodenoscopy (EGD) . "Provider Documentation" section prepared by August Thompson. . Core Measure Problem Core Measures: None <Electronically signed by August Thompson M.D.> Signed: 10/03/16 1200 Additional Copies To Vilma Gooden M.D.
--- NOTE | 2016-10-07 11:13 | EDITING REQUIRED CODING QUERY ---
CODING QUERY To promote full compliance with coding requirements relating to patient care, provider participation is requested in all cases of professional fee coder uncertainty. Please assist us with the question(s) below: Coding Question(s): Patient with history of hematemesis. History of esophageal varices & AVM's/colonic. Esophageal banding of varices done with EGD noting "red whale signs". Please document, if known or suspected, the etiology of the bleed if known. Thank you! Ayush Conklin [facility] Physician's Response(s): Suspected Upper GI bleeding but no active bleeding site noted on EGD Principal Diagnosis: "_that condition established after study, to be chiefly responsible for occasioning the admission of the patient to the hospital for care." Co-Existing Principal Diagnosis: "_when two or more diagnoses equally meet the criteria for principal diagnosis as determined by the circumstances of admission, diagnostic work up, and/or therapy provided, and the Alphabetic Index, Tabular List, or another coding guideline does not provide sequencing direction, any one of the diagnoses may be sequenced first." "When the physician has documented what appears to be a current diagnosis in the body of the record, but has not included the diagnosis in the final diagnostic statement, the physician should be asked whether the diagnosis should be added." (Source Coding Clinic 2 QTR90. p3-4)
[2017-01-29] MEDS ORDERED: AMLO2.5T PO (10:26)
[2017-01-29] MEDS ORDERED: FURO-85 PO (10:26)
[2017-01-29] MEDS ORDERED: PRLSR20 PO (10:26)
[2017-01-29] MEDS ORDERED: CALC500C3 PO (10:26)
== END 2016-10-03 16:10 | DRG 378 ==
LOC: ENRESERVTM → ENRESERVDT → EDBD 14:37 → C.EDA 14:38 → C.2T 17:51 → C.MSN 09-28 17:02
PROVIDERS: ADMIT Hospitalist; ATTEND Internal Medicine
PROC: 06L34CZ Occlusion of Esophageal Vein with Extraluminal Device, Percutaneous Endoscopic Approach (ICD-10-PCS; principal; 2016-09-26 11:24)
DX: K92.2 Gastrointestinal hemorrhage, unspecified (principal); K76.6 Portal hypertension; D62 Acute posthemorrhagic anemia; I85.10 Secondary esophageal varices without bleeding; K72.90 Hepatic failure, unspecified without coma; K74.69 Other cirrhosis of liver; N18.3 Chronic kidney disease, stage 3 (moderate); E78.5 Hyperlipidemia, unspecified; N40.0 Benign prostatic hyperplasia without lower urinary tract symptoms; I25.2 Old myocardial infarction; E03.9 Hypothyroidism, unspecified; I48.0 Paroxysmal atrial fibrillation; I12.9 Hypertensive chronic kidney disease with stage 1 through stage 4 chronic kidney disease, or unspecified chronic kidney disease; D35.2 Benign neoplasm of pituitary gland; D69.59 Other secondary thrombocytopenia; Q27.33 Arteriovenous malformation of digestive system vessel; K31.89 Other diseases of stomach and duodenum

== ENCOUNTER 2017-01-19 15:02 | Emergency (ER) | payer OTHER ==
[~2017-01-19] VITALS: Ht 172.7 cm; Wt 84.0 kg
[~2017-01-19 15:02] MED LIST changes: +ALBINS INH; +HYDR-5688 PO; -TRAM-10 PO; +XFX550 PO
[2017-01-19 15:06] VITALS: TEMP 36.4; Ht 172.7 cm; Wt 84.0 kg
[2017-01-19] MEDS ORDERED: SODIUM CHLORIDE 0.9% 1000ML 250 ML IV STA (15:24)
[2017-01-19] MEDS ORDERED: MoRPHine SULFATE 2 MG/ML CARP IV STA (15:24)
[2017-01-19] MEDS ORDERED: ONDANSETRON INJ 2 MG/ML 2 ML VIAL IV STA (15:24)
[2017-01-19] MEDS ORDERED: SODIUM CHLORIDE 0.9% 1000ML 1,000 ML IV STA (15:24)
[2017-01-19] MEDS ORDERED: POTA10TA30 PO (15:39)
[2017-01-19 16:03] LABS: BUN/CREATININE RATIO 15.5 (10-20); CALCIUM 8.5 mg/dl (8.5-10.1); CREATININE 1.4 mg/dl (0.60-1.40); POTASSIUM 4.2 mmol/L (3.5-5.1)
[2017-01-19 16:05] LABS: MEAN CELL VOLUME 89.2 fL (80-100); MEAN CORPUSCULAR HEMOGLOBIN 28.3 pg (25-34); MEAN CORPUSCULAR HGB CONC 31.8 g/dl (32-36); MEAN PLATELET VOLUME 10.1 fL (7.4-10.4); PLATELET COUNT 49 K/uL (130-400); RED BLOOD COUNT 3.14 M/uL (4.7-6.1); WHITE BLOOD COUNT 3.25 K/uL (4.8-10.8)
[2017-01-19 16:06] LABS: BASO % 0.6 %; BASO ABS # 0.02 K/uL (0-0.2); COMPLETE YES; EOS % 6.2 %; HYPOCHROMIA PRESENT; LYMPH % 15.1 %; LYMPH ABS # 0.49 K/uL (1.2-3.4); MONO % 9.8 %; NEUT % 68.3 %; PLT ESTIMATE DECREASED
[2017-01-19 16:07] LABS: INR 1.1 (0.9-1.1); PARTIAL THROMBOPLASTIN RATIO 1.2; PROTHROMBIN TIME (PATIENT) 12.2 SECONDS (9.0-12.0)
--- NOTE | 2017-01-19 16:12 | DIAGNOSTIC IMAGING REPORT ---
ABD/PELVIS NO IV OR ORAL CONT CLINICAL HISTORY: 82 years-old Male presenting with eval for hernia, abdominal pain, concern for appendicitis. TECHNIQUE: Multidetector CT of the abdomen and pelvis was performed without the use of intravenous contrast. IV contrast: None. A dose lowering technique was used consistent with the principles of ALARA (as low as reasonably achievable). COMPARISON: 09/16/2016. CT DOSE (mGy.cm): The estimated cumulative dose is 536.85 mGy.cm. FINDINGS: Boxcar Weigher topogram: Unremarkable. Lung bases: Minimal dependent changes likely atelectasis. Multichamber enlargement of the heart. Aortic valve and coronary artery calcification. The intraventricular blood pool is less dense than adjacent myocardium suggesting anemia. Trace pericardial effusion. No pleural effusion. Tortuous descending thoracic aorta. Liver: Cirrhotic morphology of the liver. Small hypodensity in the left hepatic lobe unchanged from prior and likely hepatic cyst. Normal density. Biliary: No gross biliary ductal dilatation allowing for noncontrast technique. Normal gallbladder. Pancreas: Moderate parenchymal atrophy. Spleen: Enlarged measuring nearly 16 cm in maximal sagittal dimension. Adrenal glands: Normal. Kidneys and ureters: Parenchymal calcification noted in the right kidney. No hydronephrosis. No nephrolithiasis. Normal ureters. Bladder: Incompletely evaluated secondary to underdistention. Pelvic organs: Prostate enlargement likely secondary to benign prostatic hyperplasia. Bowel: Diverticulosis of the sigmoid colon. Appendix not visualized, possibly absent. No inflammatory changes in the right lower quadrant. No bowel obstruction. Prominent paraesophageal/esophageal varices. Perigastric varices also noted. Peritoneal cavity: Trace perihepatic ascites. Vasculature: Atherosclerosis of the normal caliber abdominal aorta. Lymph nodes: No enlarged lymph nodes in the abdomen or pelvis. Abdominal wall: Fluid and small bowel containing umbilical hernia. No evidence of complete obstruction. Musculoskeletal: Degenerative changes of the spine. Previously noted compression fracture of L1 with retropulsion of fracture fragments into the spinal canal as on prior exam. Stable to slight interval worsening of the compression deformity and retropulsion. No new compression fracture. Severe osteopenia. IMPRESSION: 1. Fluid and small bowel containing umbilical hernia. No evidence of bowel obstruction. 2. Cirrhosis with portal hypertension evidenced by splenomegaly and varices. 3. No inflammatory changes in the right lower quadrant to suggest appendicitis, although the appendix is not visualized. Correlate for history of appendectomy. 4. Stable slight interval worsening of the L1 compression deformity with retropulsion of fracture fragments. No new compression fracture. 5. Severe osteopenia. Electronically signed by: Souleymane Nelson M.D. 01/19/2017 4:11 PM Dictated Date/Time: 01/19/2017 4:00 PM
--- NOTE | 2017-01-19 17:02 | EMERGENCY ROOM VISIT NOTE ---
History Report prepared by Meghan: Pavan Tovar Under the Supervision of: Dr. Sidney Chaney M.D. First contact with patient: 15:11 Chief Complaint: ABDOMINAL PAIN Stated Complaint: PAINS IN ABD History of Present Illness The patient is a 82 year old male who presents to the Emergency Room with complaints of persistent RLQ abdominal pain beginning this morning. He has a history of non-alcoholic cirrhosis of the liver and GI bleed. He has a history of an umbilical hernia, but states that it has been present for many years. The patient's daughter states that the patient's hernia appears a bit larger than normal. The patient also complains of nausea. He denies any black or bloody stool, fever, chills, chest pain, SOB, new back pain, or vomiting. His last normal bowel movement was today. The patient is on chronic Flagyl for hepatic encephalopathy and started this treatment last week. He is not on any blood thinners. Source of History: patient Onset: This morning Position: abdomen (RLQ) Timing: other (persistent) Associated Symptoms: + nausea, No fevers, No chills, No chest pain, No SOB, No vomiting, No back pain (new), No melena, No hematochezia Review of Systems See HPI for pertinent positives & negatives. A total of 10 systems reviewed and were otherwise negative. Past Medical & Surgical Medical Problems: (1) Anemia (2) BPH (benign prostatic hypertrophy) (3) Cirrhosis (4) CKD (chronic kidney disease), stage III (5) Dyslipidemia (6) Esophageal varices (7) GERD (gastroesophageal reflux disease) (8) History of non-ST elevation myocardial infarction (NSTEMI) (9) Hypertension (10) Hypothyroidism (11) Paroxysmal atrial fibrillation (12) Thrombocytopenia Surgical Problems: (1) H/O colonoscopy (2) H/O esophagogastroduodenoscopy (3) History of esophagogastroduodenoscopy (EGD) Old medical records were reviewed. Nurse's notes were reviewed and I agree with. Family History Coronary artery disease FATHER Tuberculosis MOTHER Social History Smoking Status: Never Smoker Alcohol Use: none Drug Use: none Marital Status: Housing Status: fdc Occupation Status: retired Current/Historical Medications Scheduled Allopurinol (Zyloprim), 100 MG PO Q2D Amlodipine Besylate (Amlodipine Besylate), 5 MG PO DAILY Atorvastatin (Lipitor), 40 MG PO HS Carvedilol (Coreg), 12.5 MG PO BID@1200,2100 Ferrous Sulfate (Kp Ferrous Sulfate), 1 TAB PO BID Levothyroxine Sodium (Levothyroxine Sodium), 75 MCG PO QAM Magnesium Oxide (Mg Supplement (Magnesium Oxide), 400 TAB PO BID Omeprazole (Prilosec), 20 MG PO QAM Potassium Chloride (Potassium Chloride Cr), 20 MEQ PO DAILY Rifaximin (Xifaxan), 550 MG PO BID Tamsulosin Hcl (Flomax), 0.4 MG PO HS Scheduled PRN Albuterol Sulf (Albuterol Sulfate), 2.5 MG INH Q6R PRN for Breathing Hydrocodone/Acetaminophen 5MG/325MG (Bandy 5MG/325MG), 1 TABLET PO Q6H PRN for Pain Allergies Coded Allergies: Lisinopril (Verified Allergy, Unknown, UNKNOWN, 01/19/17) Physical Exam Vital Signs Date Time Temp Pulse Resp B/P (MAP) Pulse Ox O2 Delivery O2 Flow Rate FiO2 01/19/17 18:45 74 22 121/72 98 01/19/17 17:04 69 22 117/62 01/19/17 15:06 36.4 72 18 120/61 97 Room Air Physical Exam General: Well developed well nourished in no acute distress, breathing comfortably on room air. Normal speech HEENT: Normal cephalic atraumatic. Pupils are equal round and reactive to light. Extraocular movements are intact. Oropharynx is pink with moist mucous membranes. No swelling of the mouth lips or tongue. Neck: Supple with a midline trachea. No meningeal signs or stiffness, no JVD or bruits. No Stridor. Chest: Clear to auscultation bilaterally. No wheezes or rhonchi. No increased work of breathing. Heart: regular rate and rhythm. Abdomen: Nondistended without rebound guarding or rigidity. Central umbical hernia that has some bluish discoloration. No redness or warmth. Mildly tender, but complains of more RLQ abdominal pain. Extremities: No cyanosis clubbing or edema. No calf tenderness or assymetry Spine/Back. Non tender to palpation. No CVA tenderness Skin: Good turgor without rashes. Neurologic exam: Cranial nerves two through 12 are intact. Motor and sensation are intact and symmetrical throughout. Medical Decision & Procedures ER Provider Diagnostic Interpretation: CT results as stated below per my review and radiologist interpretation: ABD/PELVIS NO IV OR ORAL CONT FINDINGS: Child Care Leader topogram: Unremarkable. Lung bases: Minimal dependent changes likely atelectasis. Multichamber enlargement of the heart. Aortic valve and coronary artery calcification. The intraventricular blood pool is less dense than adjacent myocardium suggesting anemia. Trace pericardial effusion. No pleural effusion. Tortuous descending thoracic aorta. Liver: Cirrhotic morphology of the liver. Small hypodensity in the left hepatic lobe unchanged from prior and likely hepatic cyst. Normal density. Biliary: No gross biliary ductal dilatation allowing for noncontrast technique. Normal gallbladder. Pancreas: Moderate parenchymal atrophy. Spleen: Enlarged measuring nearly 16 cm in maximal sagittal dimension. Adrenal glands: Normal. Kidneys and ureters: Parenchymal calcification noted in the right kidney. No hydronephrosis. No nephrolithiasis. Normal ureters. Bladder: Incompletely evaluated secondary to underdistention. Pelvic organs: Prostate enlargement likely secondary to benign prostatic hyperplasia. Bowel: Diverticulosis of the sigmoid colon. Appendix not visualized, possibly absent. No inflammatory changes in the right lower quadrant. No bowel obstruction. Prominent paraesophageal/esophageal varices. Perigastric varices also noted. Peritoneal cavity: Trace perihepatic ascites. Vasculature: Atherosclerosis of the normal caliber abdominal aorta. Lymph nodes: No enlarged lymph nodes in the abdomen or pelvis. Abdominal wall: Fluid and small bowel containing umbilical hernia. No evidence of complete obstruction. Musculoskeletal: Degenerative changes of the spine. Previously noted compression fracture of L1 with retropulsion of fracture fragments into the spinal canal as on prior exam. Stable to slight interval worsening of the compression deformity and retropulsion. No new compression fracture. Severe osteopenia. IMPRESSION: 1. Fluid and small bowel containing umbilical hernia. No evidence of bowel obstruction. 2. Cirrhosis with portal hypertension evidenced by splenomegaly and varices. 3. No inflammatory changes in the right lower quadrant to suggest appendicitis, although the appendix is not visualized. Correlate for history of appendectomy. 4. Stable slight interval worsening of the L1 compression deformity with retropulsion of fracture fragments. No new compression fracture. 5. Severe osteopenia. Electronically signed by: Souleymane Nelson M.D. Laboratory Results 01/19/17 15:30 Red Blood Count 3.14, Mean Corpuscular Volume 89.2, Mean Corpuscular Hemoglobin 28.3, Mean Corpuscular Hemoglobin Concent 31.8, Mean Platelet Volume 10.1, Neutrophils (%) (Auto) 68.3, Lymphocytes (%) (Auto) 15.1, Monocytes (%) (Auto) 9.8, Eosinophils (%) (Auto) 6.2, Basophils (%) (Auto) 0.6, Neutrophils # (Auto) 2.22, Lymphocytes # (Auto) 0.49, Monocytes # (Auto) 0.32, Eosinophils # (Auto) 0.20, Basophils # (Auto) 0.02 01/19/17 15:30 Test 01/19/17 15:30 01/19/17 17:17 White Blood Count 3.25 K/uL (4.8-10.8) Red Blood Count 3.14 M/uL (4.7-6.1) Hemoglobin 8.9 g/dL (14.0-18.0) Hematocrit 28.0 % (42-52) Mean Corpuscular Volume 89.2 fL (80-100) Mean Corpuscular Hemoglobin 28.3 pg (25-34) Mean Corpuscular Hemoglobin Concent 31.8 g/dl (32-36) Platelet Count 49 K/uL (130-400) Mean Platelet Volume 10.1 fL (7.4-10.4) Neutrophils (%) (Auto) 68.3 % Lymphocytes (%) (Auto) 15.1 % Monocytes (%) (Auto) 9.8 % Eosinophils (%) (Auto) 6.2 % Basophils (%) (Auto) 0.6 % Neutrophils # (Auto) 2.22 K/uL (1.4-6.5) Lymphocytes # (Auto) 0.49 K/uL (1.2-3.4) Monocytes # (Auto) 0.32 K/uL (0.11-0.59) Eosinophils # (Auto) 0.20 K/uL (0-0.5) Basophils # (Auto) 0.02 K/uL (0-0.2) RDW Standard Deviation 55.1 fL (36.4-46.3) RDW Coefficient of Variation 17.0 % (11.5-14.5) Immature Granulocyte % (Auto) 0.0 % Immature Granulocyte # (Auto) 0.00 K/uL (0.00-0.02) Platelet Estimate DECREASED Hypochromasia PRESENT Prothrombin Time 12.2 SECONDS (9.0-12.0) Prothromb Time International Ratio 1.1 (0.9-1.1) Activated Partial Thromboplast Time 32.4 SECONDS (21.0-31.0) Partial Thromboplastin Ratio 1.2 Anion Gap 7.0 mmol/L (3-11) Est Creatinine Clear Calc Drug Dose 44.4 ml/min Estimated GFR () 54.6 Estimated GFR (Non- 47.1 BUN/Creatinine Ratio 15.5 (10-20) Calcium Level 8.5 mg/dl (8.5-10.1) Total Bilirubin 0.9 mg/dl (0.2-1) Direct Bilirubin 0.2 mg/dl (0-0.2) Aspartate Amino Transf (AST/SGOT) 33 U/L (15-37) Alanine Aminotransferase (ALT/SGPT) 19 U/L (12-78) Alkaline Phosphatase 140 U/L (45-117) Total Protein 6.8 gm/dl (6.4-8.2) Albumin 3.4 gm/dl (3.4-5.0) Lipase 107 U/L (73-393) Urine Color YELLOW Urine Appearance CLEAR (CLEAR) Urine pH 5.0 (4.5-7.5) Urine Specific [place] 1.018 (1.000-1.030) Urine Protein NEG (NEG) Urine Glucose (UA) NEG (NEG) Urine Ketones NEG (NEG) Urine Occult Blood NEG (NEG) Urine Nitrite NEG (NEG) Urine Bilirubin NEG (NEG) Urine Urobilinogen NEG (NEG) Urine Leukocyte Esterase NEG (NEG) Laboratory studies as stated above per my review. Medications Administered Medications (Trade) Dose Ordered Sig/Med Route Start Time Stop Time Status Last Admin Dose Admin Sodium Chloride 250 ml @ 999 mls/hr Q16M STAT IV 01/19/17 15:24 01/19/17 15:39 DC 01/19/17 15:57 999 MLS/HR Sodium Chloride 1,000 ml @ 100 mls/hr Q10H STAT IV 01/19/17 15:24 01/19/17 18:59 DC 01/19/17 15:24 100 MLS/HR Ondansetron HCl (Zofran Inj) 4 mg NOW STAT IV 01/19/17 15:24 01/19/17 15:27 DC 01/19/17 15:57 4 MG Morphine Sulfate (MoRPHine SULFATE INJ) 2 mg NOW STAT IV 01/19/17 15:24 01/19/17 15:27 DC 01/19/17 15:58 2 MG ED Course 1512: Past medical records reviewed. The patient was evaluated in room C7, and a complete history and physical examination were performed. 1524: Ordered Morphine Sulfate 2 mg IV, Zofran Inj 4 mg IV, Sodium Chloride 1000 ml @ 100 mls/hr IV, Sodium Chloride 250 ml @ 999 mls/hr IV. 1643: I reassessed the patient. He is resting comfortably. I discussed the results and treatment plan with the patient. He verbalized agreement of the treatment plan. The patient will be evaluated for further management. 1815: I discussed the patient's case with Dr. Manzanares. He feels that the patient does not require any emergent surgeries. He feels that the patient is safe for discharge. 1830: Upon reevaluation, the patient appears comfortably. I discussed the results and treatment plan with him. He verbalized agreement of the treatment plan. The patient was discharged home. Medical Decision Differentials include, but are not limited to; incarcerated hernia, appendicitis , colitis, UTI, and electrolyte or metabolic abnormality. This patient comes in as described above. He is placed room C7 is evidence of right sided abdominal pain on exam there is an umbilical hernia does seem to be swollen but not red or warm. Is mildly tender. The patient and family are not sure if this is change compared to baseline. IV access established and blood work was obtained he was given IV morphine and Zofran was feeling a lot better. I did a CAT scan there is a hernia without any definite signs of obstruction. He does have some constipation other chronic findings. He is baseline pancytopenic without any change compared to previous. He has no significant electrolyte or metabolic abnormalities. He has no symptoms to suggest GI bleed or variceal problems. I did consult Dr. Manzanares, the surgeon, who came and saw the patient. He says of the hernia can be reduced but it pops right back out he does not feel the patient needs acute surgical intervention but can wear a pelvic binder that he are he has at home and return if: increasing pain, worsening of symptoms ,any new problems or concerns. Ultimately if the patient does need this repaired he will likely need to go to a tertiary care center as he has a very complicated medical history with his liver cirrhosis and pancytopenia. The patient's family desire to go home and I think this is reasonable and he is doing well. I educated them on what to look out for which would be increasing pain and redness or warmth, fever or chills or any new problems concerns. He already has an appointment with his gastrointestinal specialist on Friday which I told him to keep. Family was happy with the plan. He was discharged home and will return if any new problems or concerns. Medication Reconcilliation Current Medication List: was personally reviewed by me Blood Pressure Screening Patient's blood pressure: Normal blood pressure Blood pressure disposition: Did not require urgent referral Consults Time Called: 1640 Consulting Physician: Dr. Manzanares -General Surgery Returned Call: 1643 Discussed the patient's case. The patient will be evaluated for further management. 1814: I discussed the patient's case. He feels that the patient is safe for discharge. Impression Primary Impression: Abdominal pain Additional Impressions: Umbilical hernia Pancytopenia Scribe Attestation The scribe's documentation has been prepared under my direction and personally reviewed by me in its entirety. I confirm that the note above accurately reflects all work, treatment, procedures, and medical decision making performed by me. Departure Information Dispostion Home / Self-Care Referrals Vilma Gooden M.D. (PCP) Forms HOME CARE DOCUMENTATION FORM, IMPORTANT VISIT INFORMATION Patient Instructions My [facility] Where I've Been Additional Instructions Rest Use your about abdominal binder and avoid straining Ensure your bowels are moving and use stool softener if needed Keep an eye on your hernia and return if: increasing pain or redness or swelling , fever or chills or vomiting, discoloration, increased in size, any new problems or concerns Keep your appointment with Dr. Milian for recheck on Friday Problem Qualifiers
[2017-01-19 17:30] LABS: URINE APPEARANCE CLEAR (CLEAR); URINE BILIRUBIN NEG (NEG); URINE COLOR YELLOW; URINE NITRITE NEG (NEG); URINE SPECIFIC GRAVITY 1.018 (1.000-1.030); UROBILINOGEN NEG (NEG)
[2017-01-19 17:37] LABS: MANUAL MICROSCOPIC REQUIRED? NO; REVIEW REQ? NO
[2017-01-19 18:45] VITALS: BP 121/72; PULSE 74; O2SAT 98
--- NOTE | 2017-01-19 18:49 | Medical Consult ---
Consultation Date of Consultation: Jan 19, 2017. Attending Physician: Reason for Consultation: umbilical hernia, abdominal pain History of Present Illness 82 year old male with multiple medical problems including cirrhosis presented to ED with abdominal pain. Started this morning. Some nausea, but no vomiting. Mostly in RLQ. Passed gas this morning, felt constipated. Workup unremarkable except for umbilical hernia with knuckle of bowel in it but no evidence of ischemia or obstruction. 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 Family and patient are unaware if hernia looks any different. Past Medical/Surgical History Medical Problems: (1) Abdominal pain Status: Acute (2) Abnormal CT of the head Status: Acute (3) Acute renal failure Status: Acute (4) Fall Status: Acute (5) GI bleed Status: Acute (6) Low back pain Status: Acute (7) Lumbar compression fracture Status: Acute (8) Pancytopenia Status: Acute (9) Severe anemia Status: Acute (10) Umbilical hernia Status: Acute (11) Upper GI bleed Status: Acute (12) Weakness Status: Acute Family History Coronary artery disease FATHER Tuberculosis MOTHER Social History Smoking Status: Never Smoker Drug Use: none Marital Status: Housing Status: residential Occupation Status: retired Allergies Coded Allergies: Lisinopril (Verified Allergy, Unknown, UNKNOWN, 01/19/17) Current Inpatient Medications Current Inpatient Medications Medications (Trade) Dose Ordered Sig/Med Route Start Time Stop Time Status Last Admin Dose Admin Sodium Chloride 1,000 ml @ 100 mls/hr Q10H STAT IV 01/19/17 15:24 01/20/17 01:23 01/19/17 15:24 100 MLS/HR Review of Systems Constitutional: No fever, No chills, No sweats, No weight loss, No weakness, No fatigue, No problem reported Eyes: No worsening of vision, No eye pain, No redness, No discharge, No diplopia, No problem reported ENT: No hearing loss, No unusual epistaxis, No nasal symptoms, No sore throat, No tinnitus, No dental problems, No trouble swallowing, No problem reported Respiratory: No cough, No sputum, No wheezing, No shortness of breath, No dyspnea on exertion, No dyspnea at rest, No hemoptysis, No problem reported Cardiovascular: No chest pain, No orthopnea, No PND, No edema, No claudication , No palpitations, No problem reported Abdomen: + pain, + nausea, + constipation Musculoskeletal: No joint pain, No muscle pain, No swelling, No calf pain, No problem reported Neurologic: No memory loss, No paralysis, No weakness, No numbness/tingling, No vertigo, No balance problems, No problem reported Psychiatric: No depression symptoms, No anhedonism, No anxiety, No insomnia, No substance abuse, No problem reported Endocrine: No fatigue, No excessive thirst, No excessive urination, No problem reported Hematologic / Lymphatic: No abnormal bleeding/bruising, No clotting problems, No swollen lymph nodes, No night sweats, No problem reported Integumentary: No rash, No itch, No new/changing skin lesions, No color change , No bleeding, No problem reported Allergic / Immunologic: No environmental allergies, No seasonal allergies, No pet sensitivities, No food allergies, No hives, No frequent infections, No poor healing, No prolonged convalescence, No problem reported Physical Exam Date Time Temp Pulse Resp B/P (MAP) Pulse Ox O2 Delivery O2 Flow Rate FiO2 01/19/17 17:04 69 22 117/62 01/19/17 15:06 36.4 72 18 120/61 97 Room Air General Appearance: no apparent distress Head: normocephalic, atraumatic Eyes: normal inspection, PERRL ENT: normal ENT inspection, hearing grossly normal Neck: supple, no adenopathy Respiratory/Chest: chest non-tender, lungs clear, no respiratory distress Cardiovascular: regular rate, rhythm, normal peripheral pulses Abdomen/GI: soft, + tenderness, + hernia (reducible, mildly tender umbilical hernia. Purpuric appearance likely secondary to mild caput medusa. 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 TECHNIQUE: Multidetector CT of the abdomen and pelvis was performed without the use of intravenous contrast. IV contrast: None. A dose lowering technique was used consistent with the principles of ALARA (as low as reasonably achievable). COMPARISON: 09/16/2016. CT DOSE (mGy.cm): The estimated cumulative dose is 536.85 mGy.cm. FINDINGS: Dividend Clerk topogram: Unremarkable. Lung bases: Minimal dependent changes likely atelectasis. Multichamber enlargement of the heart. Aortic valve and coronary artery calcification. The intraventricular blood pool is less dense than adjacent myocardium suggesting anemia. Trace pericardial effusion. No pleural effusion. Tortuous descending thoracic aorta. Liver: Cirrhotic morphology of the liver. Small hypodensity in the left hepatic lobe unchanged from prior and likely hepatic cyst. Normal density. Biliary: No gross biliary ductal dilatation allowing for noncontrast technique. Normal gallbladder. Pancreas: Moderate parenchymal atrophy. Spleen: Enlarged measuring nearly 16 cm in maximal sagittal dimension. Adrenal glands: Normal. Kidneys and ureters: Parenchymal calcification noted in the right kidney. No hydronephrosis. No nephrolithiasis. Normal ureters. Bladder: Incompletely evaluated secondary to underdistention. Pelvic organs: Prostate enlargement likely secondary to benign prostatic hyperplasia. Bowel: Diverticulosis of the sigmoid colon. Appendix not visualized, possibly absent. No inflammatory changes in the right lower quadrant. No bowel obstruction. Prominent paraesophageal/esophageal varices. Perigastric varices also noted. Peritoneal cavity: Trace perihepatic ascites. Vasculature: Atherosclerosis of the normal caliber abdominal aorta. Lymph nodes: No enlarged lymph nodes in the abdomen or pelvis. Abdominal wall: Fluid and small bowel containing umbilical hernia. No evidence of complete obstruction. Musculoskeletal: Degenerative changes of the spine. Previously noted compression fracture of L1 with retropulsion of fracture fragments into the spinal canal as on prior exam. Stable to slight interval worsening of the compression deformity and retropulsion. No new compression fracture. Severe osteopenia. IMPRESSION: 1. Fluid and small bowel containing umbilical hernia. No evidence of bowel obstruction. 2. Cirrhosis with portal hypertension evidenced by splenomegaly and varices. 3. No inflammatory changes in the right lower quadrant to suggest appendicitis, although the appendix is not visualized. Correlate for history of appendectomy. 4. Stable slight interval worsening of the L1 compression deformity with retropulsion of fracture fragments. No new compression fracture. 5. Severe osteopenia. Last 24 Hours Test 01/19/17 15:30 01/19/17 17:17 White Blood Count 3.25 K/uL Red Blood Count 3.14 M/uL Hemoglobin 8.9 g/dL Hematocrit 28.0 % Mean Corpuscular Volume 89.2 fL Mean Corpuscular Hemoglobin 28.3 pg Mean Corpuscular Hemoglobin Concent 31.8 g/dl Platelet Count 49 K/uL Mean Platelet Volume 10.1 fL Neutrophils (%) (Auto) 68.3 % Lymphocytes (%) (Auto) 15.1 % Monocytes (%) (Auto) 9.8 % Eosinophils (%) (Auto) 6.2 % Basophils (%) (Auto) 0.6 % Neutrophils # (Auto) 2.22 K/uL Lymphocytes # (Auto) 0.49 K/uL Monocytes # (Auto) 0.32 K/uL Eosinophils # (Auto) 0.20 K/uL Basophils # (Auto) 0.02 K/uL RDW Standard Deviation 55.1 fL RDW Coefficient of Variation 17.0 % Immature Granulocyte % (Auto) 0.0 % Immature Granulocyte # (Auto) 0.00 K/uL Platelet Estimate DECREASED Hypochromasia PRESENT Prothrombin Time 12.2 SECONDS Prothromb Time International Ratio 1.1 Activated Partial Thromboplast Time 32.4 SECONDS Partial Thromboplastin Ratio 1.2 Sodium Level 141 mmol/L Potassium Level 4.2 mmol/L Chloride Level 108 mmol/L Carbon Dioxide Level 26 mmol/L Anion Gap 7.0 mmol/L Blood Urea Nitrogen 22 mg/dl Creatinine 1.40 mg/dl Est Creatinine Clear Calc Drug Dose 44.4 ml/min Estimated GFR () 54.6 Estimated GFR (Non- 47.1 BUN/Creatinine Ratio 15.5 Random Glucose 105 mg/dl Calcium Level 8.5 mg/dl Total Bilirubin 0.9 mg/dl Direct Bilirubin 0.2 mg/dl Aspartate Amino Transf (AST/SGOT) 33 U/L Alanine Aminotransferase (ALT/SGPT) 19 U/L Alkaline Phosphatase 140 U/L Total Protein 6.8 gm/dl Albumin 3.4 gm/dl Lipase 107 U/L Urine Color YELLOW Urine Appearance CLEAR Urine pH 5.0 Urine Specific [place] 1.018 Urine Protein NEG Urine Glucose (UA) NEG Urine Ketones NEG Urine Occult Blood NEG Urine Nitrite NEG Urine Bilirubin NEG Urine Urobilinogen NEG Urine Leukocyte Esterase NEG Assessment & Plan 82 year old male with cirrhosis, pancytopenia, and umbilical hernia presented with abdominal pain. His umbilical hernia is easily reducible though it is slightly tender to palpation. There was a knuckle of bowel in it but no evidence of obstruction. He is a Child's B cirrhotic which can carry a 30% perioperative morbidity and mortality. He also has pancytopenia and portal hypertension with recanalization of his umbilical vein on CT. If he would need either emergent repair of his umbilical hernia, I would recommend it be performed at a tertiary center. For now it easily reduces and may or may not represent the cause of his abdominal pain. I educated the patient and his family about his hernia and instructed them how to reduce it. Recommend an abdominal binder. Educated on signs and symptoms of strangulation and bowel obstruction no emergent surgical intervention indicated call with questions or concerns, dispo per ED return precautions given Dimas Manzanares, DO
[2017-01-29] MEDS ORDERED: AMLO2.5T PO (10:26)
[2017-01-29] MEDS ORDERED: PRLSR20 PO (10:26)
[2017-01-29] MEDS ORDERED: FURO-85 PO (10:26)
[2017-01-29] MEDS ORDERED: CALC500C3 PO (10:26)
== END 2017-01-19 18:46 | disposition home or self-care (01) ==
LOC: C.EDB 15:03 → C.EDC 18:46
DX: R10.31 Right lower quadrant pain (principal); K42.9 Umbilical hernia without obstruction or gangrene; D61.818 Other pancytopenia; K74.60 Unspecified cirrhosis of liver; K72.90 Hepatic failure, unspecified without coma; I12.9 Hypertensive chronic kidney disease with stage 1 through stage 4 chronic kidney disease, or unspecified chronic kidney disease; N18.3 Chronic kidney disease, stage 3 (moderate); E78.5 Hyperlipidemia, unspecified; K76.6 Portal hypertension; E03.9 Hypothyroidism, unspecified; K21.9 Gastro-esophageal reflux disease without esophagitis; N40.0 Benign prostatic hyperplasia without lower urinary tract symptoms; I25.2 Old myocardial infarction; Z98.890 Other specified postprocedural states; Z83.1 Family history of other infectious and parasitic diseases; Z82.49 Family history of ischemic heart disease and other diseases of the circulatory system; Z79.899 Other long term (current) drug therapy

== ENCOUNTER 2017-03-17 14:31 | Inpatient (IN) | payer OTHER ==
[~2017-03-17] VITALS: Ht 172.7 cm; Wt 79.9 kg
[~2017-03-17 14:31] MED LIST changes: -ALBINS INH; +AMLO2.5T PO; +CALC500C3 PO; +FURO-85 PO; -NRV5 PO; +POTA10TA30 PO; -SODI650T8 PO
[2017-03-17] MEDS ORDERED: ONDANSETRON INJ 2 MG/ML 2 ML VIAL IV STA (14:47)
[2017-03-17] MEDS ORDERED: SODIUM CHLORIDE 0.9% 1000ML 500 ML IV STA (14:47)
[2017-03-17] MEDS ORDERED: PANTOprazole INJ 80 MG in DEXTROSE 5% 100ML IV ONE (15:00)
[2017-03-17] MEDS ORDERED: HYDR-3983 PO (15:08)
--- NOTE | 2017-03-17 15:14 | EMERGENCY ROOM VISIT NOTE ---
History Report prepared by Meghan: Pavan Tovar Under the Supervision of: Dr. Edu Borges M.D. First contact with patient: 14:45 Chief Complaint: GI ASSESSMENT Stated Complaint: NAUSEA,SLOW BLEED IN GI History of Present Illness The patient is a 82 year old male who presents to the Emergency Room with complaints of intermittent dark colored stool beginning today. Per daughter, the patient has been experiencing generalized weakness recently. He has a history of a persistent GI bleed with an unidentified source. He has a history of anemia due to his GI bleed. The patient had his hemoglobin checked four days ago and it was found to be above 10. He also complains of intermittent nausea and dry heaves over the past few days. He denies fevers, chills, diarrhea, LOC, or SOB. The patient is not on any blood thinners. He denies recent falls. Source of History: patient Onset: Today Quality: other (dark colored stool) Timing: intermittent Associated Symptoms: + nausea (intermittent), No LOC, No fevers, No chills, No SOB Note: Additional symptoms: dry heaves. Review of Systems See HPI for pertinent positives & negatives. A total of 10 systems reviewed and were otherwise negative. Past Medical & Surgical Medical Problems: (1) Anemia (2) BPH (benign prostatic hypertrophy) (3) Cirrhosis (4) CKD (chronic kidney disease), stage III (5) Dyslipidemia (6) Esophageal varices (7) GERD (gastroesophageal reflux disease) (8) History of non-ST elevation myocardial infarction (NSTEMI) (9) Hypertension (10) Hypothyroidism (11) Paroxysmal atrial fibrillation (12) Thrombocytopenia Surgical Problems: (1) H/O colonoscopy (2) H/O esophagogastroduodenoscopy (3) History of esophagogastroduodenoscopy (EGD) Family History Coronary artery disease FATHER Tuberculosis MOTHER Social History Smoking Status: Former Smoker Alcohol Use: none Drug Use: none Marital Status: Housing Status: [facility] Occupation Status: retired Current/Historical Medications Scheduled Allopurinol (Zyloprim), 100 MG PO DAILY Amlodipine (Norvasc), 2.5 MG PO DAILY Atorvastatin (Lipitor), 40 MG PO HS Calcium Carbonate (Tums), 2 TAB PO HS Carvedilol (Coreg), 12.5 MG PO BID@1200,2100 Ferrous Sulfate (Kp Ferrous Sulfate), 1 TAB PO BID Furosemide (Lasix), 20 MG PO Q2D Levothyroxine Sodium (Levothyroxine Sodium), 75 MCG PO QAM Magnesium Oxide (Mg Supplement (Magnesium Oxide), 400 TAB PO QPM Omeprazole (Prilosec), 40 MG PO DAILY Potassium Chloride (Potassium Chloride Cr), 20 MEQ PO DAILY Rifaximin (Xifaxan), 550 MG PO BID Tamsulosin Hcl (Flomax), 0.4 MG PO HS Scheduled PRN Hydrocodone/Acetaminophen 7.5MG/325MG ([place] 7.5MG/325MG), 1 TAB PO TID PRN for Pain Allergies Coded Allergies: Lisinopril (Verified Allergy, Unknown, UNKNOWN, 03/17/17) Physical Exam Vital Signs Date Time Temp Pulse Resp B/P (MAP) Pulse Ox O2 Delivery O2 Flow Rate FiO2 03/17/17 15:31 84 16 03/17/17 15:23 162/86 03/17/17 15:16 67 23 03/17/17 15:13 74 03/17/17 15:00 93 Room Air 03/17/17 14:33 36.7 77 19 177/88 98 Room Air Physical Exam GENERAL: Patient is in no acute distress. HEENT: No acute trauma, normocephalic atraumatic, mucous membranes moist, no nasal congestion, no scleral icterus. NECK: No stridor, no adenopathy, no meningismus, trachea is midline. LUNGS: Clear to auscultation bilaterally, no wheeze, no rhonchi, breath sounds equal. HEART: Irregular rhythm with a normal rate. Subtle systolic murmur. ABDOMEN: Soft, nontender, bowel sounds positive, no hernias, no peritonitis. RECTAL: Heme positive, black stool. EXTREMITIES: No cyanosis, full range of motion of all the joints without pain or difficulty, no signs for acute trauma. Mild bilateral pedal edema. NEUROLOGIC: Oriented x 3, no acute motor or sensory deficits, no focal weakness. SKIN: No rash, no jaundice, no diaphoresis. Pale. Medical Decision & Procedures ER Provider Diagnostic Interpretation: X-ray results as stated below per interpretation by me and the radiologist: CHEST ONE VIEW PORTABLE FINDINGS: Cardiac silhouette is again enlarged. There is atherosclerosis of the aorta. Opacity of the right upper mediastinum appears unchanged suggesting vascular pedicle. There is no pneumothorax, pleural effusion or focal airspace consolidation. Minimal linear subsegmental left basilar atelectasis or scarring. Bones of the chest are grossly intact. There are degenerative changes of the shoulders and spine. IMPRESSION: Cardiomegaly without acute cardiopulmonary process. The above report was generated using voice recognition software. It may contain grammatical, syntax or spelling errors. Electronically signed by: Stanislav Caceres M.D. 03/17/2017 3:24 PM Laboratory Results 03/17/17 15:05 Red Blood Count 3.19, Mean Corpuscular Volume 87.8, Mean Corpuscular Hemoglobin 27.6, Mean Corpuscular Hemoglobin Concent 31.4, Mean Platelet Volume 11.1, Neutrophils (%) (Auto) 72.1, Lymphocytes (%) (Auto) 15.5, Monocytes (%) (Auto) 7.4, Eosinophils (%) (Auto) 3.7, Basophils (%) (Auto) 0.9, Neutrophils # (Auto) 3.31, Lymphocytes # (Auto) 0.71, Monocytes # (Auto) 0.34, Eosinophils # (Auto) 0.17, Basophils # (Auto) 0.04 03/17/17 15:05 Test 03/17/17 15:05 03/17/17 15:30 White Blood Count 4.59 K/uL (4.8-10.8) Red Blood Count 3.19 M/uL (4.7-6.1) Hemoglobin 8.8 g/dL (14.0-18.0) Hematocrit 28.0 % (42-52) Mean Corpuscular Volume 87.8 fL (80-100) Mean Corpuscular Hemoglobin 27.6 pg (25-34) Mean Corpuscular Hemoglobin Concent 31.4 g/dl (32-36) Platelet Count 41 K/uL (130-400) Mean Platelet Volume 11.1 fL (7.4-10.4) Neutrophils (%) (Auto) 72.1 % Lymphocytes (%) (Auto) 15.5 % Monocytes (%) (Auto) 7.4 % Eosinophils (%) (Auto) 3.7 % Basophils (%) (Auto) 0.9 % Neutrophils # (Auto) 3.31 K/uL (1.4-6.5) Lymphocytes # (Auto) 0.71 K/uL (1.2-3.4) Monocytes # (Auto) 0.34 K/uL (0.11-0.59) Eosinophils # (Auto) 0.17 K/uL (0-0.5) Basophils # (Auto) 0.04 K/uL (0-0.2) RDW Standard Deviation 51.9 fL (36.4-46.3) RDW Coefficient of Variation 16.2 % (11.5-14.5) Immature Granulocyte % (Auto) 0.4 % Immature Granulocyte # (Auto) 0.02 K/uL (0.00-0.02) Hypersegmented Polys 1+ Hypochromasia PRESENT Prothrombin Time 12.1 SECONDS (9.0-12.0) Prothromb Time International Ratio 1.1 (0.9-1.1) Activated Partial Thromboplast Time 29.9 SECONDS (21.0-31.0) Partial Thromboplastin Ratio 1.2 Anion Gap 10.0 mmol/L (3-11) Est Creatinine Clear Calc Drug Dose 40.7 ml/min Estimated GFR () 54.6 Estimated GFR (Non- 47.1 BUN/Creatinine Ratio 24.5 (10-20) Calcium Level 8.3 mg/dl (8.5-10.1) Magnesium Level 2.1 mg/dl (1.8-2.4) Total Bilirubin 1.0 mg/dl (0.2-1) Aspartate Amino Transf (AST/SGOT) 36 U/L (15-37) Alanine Aminotransferase (ALT/SGPT) 22 U/L (12-78) Alkaline Phosphatase 140 U/L (45-117) Troponin I < 0.015 ng/ml (0-0.045) Total Protein 6.9 gm/dl (6.4-8.2) Albumin 3.4 gm/dl (3.4-5.0) Globulin 3.5 gm/dl (2.5-4.0) Albumin/Globulin Ratio 1.0 (0.9-2) Lipase 80 U/L (73-393) Thyroid Stimulating Hormone (TSH) 2.990 uIu/ml (0.300-4.500) Free Thyroxine 1.09 ng/dl (0.80-1.60) Urine Color YELLOW Urine Appearance CLEAR (CLEAR) Urine pH 7.5 (4.5-7.5) Urine Specific [place] 1.018 (1.000-1.030) Urine Protein NEG (NEG) Urine Glucose (UA) NEG (NEG) Urine Ketones NEG (NEG) Urine Occult Blood NEG (NEG) Urine Nitrite NEG (NEG) Urine Bilirubin NEG (NEG) Urine Urobilinogen NEG (NEG) Urine Leukocyte Esterase NEG (NEG) Laboratory results reviewed by me. Medications Administered Medications (Trade) Dose Ordered Sig/Med Route Start Time Stop Time Status Last Admin Dose Admin Sodium Chloride 500 ml @ 999 mls/hr Q31M STAT IV 03/17/17 14:47 03/17/17 15:17 DC 03/17/17 15:09 999 MLS/HR Ondansetron HCl (Zofran Inj) 4 mg NOW STAT IV 03/17/17 14:47 03/17/17 14:50 DC 03/17/17 15:09 4 MG Pantoprazole Sodium (Protonix IV Bolus/Drip) 1 ea NOW STAT IV 03/17/17 14:53 03/17/17 14:54 DC 03/17/17 14:53 1 EA Pantoprazole Sodium 80 mg/ Dextrose 120 ml @ 480 mls/hr TODAY@1500 ONCE IV 03/17/17 15:00 03/17/17 15:14 DC 03/17/17 15:23 480 MLS/HR Pantoprazole Sodium 40 mg/ Dextrose 100 ml @ 20 mls/hr Q5H IV 03/17/17 15:15 03/17/17 20:14 03/17/17 15:23 20 MLS/HR ECG Indication: nausea Rate (beats per minute): 75 Rhythm: atrial fibrillation Findings: no acute ischemic change, no ectopy ED Course 1445: The patient was evaluated in room B2. A complete history and physical exam was performed. 1447: Ordered Zofran Inj 4 mg IV, Sodium Chloride 500 ml @ 999 mls/hr IV, Protonix IV Bolus/Drip IV. 1500: Ordered Pantoprazole Sodium 80 mg/Dextrose 120 mL @ 480 mL/hr IV. 1614: Upon reexamination the patient is resting comfortably. I discussed results and treatment plan with the patient. He verbalizes agreement and understanding. The patient will be evaluated for further management. Medical Decision The patient is a 82 year old male who presents to the ED with complaints of dark colored stools. Differential diagnoses considered include upper GI bleed, lower GI bleed, anemia, electrolyte imbalance, dehydration, infection and UTI. There is no leukocytosis, in fact, the white count is slightly low. Platelet count is low but this appears baseline looking back at previous testing. The patient is anemic with a hemoglobin of 8.8. No significant electrolyte abnormality, kidney failure or hepatitis. No coagulopathy. Urinalysis does not show infection. Chest film does not show pneumonia or CHF. EKG shows A. fib, no acute ischemia. Cardiac enzyme testing times one is not consistent with acute cardiac injury. Patient appears to be in a euthyroid state. On my exam, his stool was black and heme positive. The patient received IV saline, IV Zofran. He was given IV Protonix as a bolus and then placed on a Protonix drip. I do think admission/observation is warranted. I suspect his hemoglobin will drop below 8 once he is properly hydrated. He appears to be suffering from a GI bleed, likely an upper GI bleed with the color of the stool. This explains his weakness and fatigue. I did speak to the patient and case management. The on-call hospitalist was consulted. Medication Reconcilliation Current Medication List: was personally reviewed by me Blood Pressure Screening Patient's blood pressure: Elevated blood pressure Blood pressure disposition: Referred to PCP Consults Time Called: 1610 Consulting Physician: Carmen Tony Returned Call: 1613 Discussed the patient's case. The patient will be evaluated for further management. Impression Primary Impression: GI bleed Additional Impressions: Anemia Weakness Scribe Attestation The scribe's documentation has been prepared under my direction and personally reviewed by me in its entirety. I confirm that the note above accurately reflects all work, treatment, procedures, and medical decision making performed by me. Departure Information Dispostion Being Evaluated By Hospitalist Referrals Marilynn Al D.O. (PCP) Patient Instructions My [facility] Problem Qualifiers
[2017-03-17] MEDS ORDERED: PANTOprazole INJ 40 MG in DEXTROSE 5% 100ML IV SCH (15:15)
--- NOTE | 2017-03-17 15:25 | DIAGNOSTIC IMAGING REPORT ---
CHEST ONE VIEW PORTABLE HISTORY: 82 years-old Male EVALUATE GI BLEED acute GI bleed COMPARISON: Chest radiograph 09/25/2016 TECHNIQUE: Portable upright AP view the chest FINDINGS: Cardiac silhouette is again enlarged. There is atherosclerosis of the aorta. Opacity of the right upper mediastinum appears unchanged suggesting vascular pedicle. There is no pneumothorax, pleural effusion or focal airspace consolidation. Minimal linear subsegmental left basilar atelectasis or scarring. Bones of the chest are grossly intact. There are degenerative changes of the shoulders and spine. IMPRESSION: Cardiomegaly without acute cardiopulmonary process. The above report was generated using voice recognition software. It may contain grammatical, syntax or spelling errors. Electronically signed by: Stanislav Caceres M.D. 03/17/2017 3:24 PM Dictated Date/Time: 03/17/2017 3:22 PM
[2017-03-17 15:46] LABS: MEAN CELL VOLUME 87.8 fL (80-100); MEAN CORPUSCULAR HEMOGLOBIN 27.6 pg (25-34); MEAN CORPUSCULAR HGB CONC 31.4 g/dl (32-36); MEAN PLATELET VOLUME 11.1 fL (7.4-10.4); PLATELET COUNT 41 K/uL (130-400); RED BLOOD COUNT 3.19 M/uL (4.7-6.1); WHITE BLOOD COUNT 4.59 K/uL (4.8-10.8)
[2017-03-17 15:54] LABS: URINE APPEARANCE CLEAR (CLEAR); URINE BILIRUBIN NEG (NEG); URINE COLOR YELLOW; URINE NITRITE NEG (NEG); URINE PH 7.5 (4.5-7.5); URINE SPECIFIC GRAVITY 1.018 (1.000-1.030); UROBILINOGEN NEG (NEG); ZZUR CULT IF INDIC CLEAN CATCH NO
[2017-03-17 15:57] LABS: ALT/SGPT 22 U/L (12-78); AST/SGOT 36 U/L (15-37); BLOOD UREA NITROGEN 34 mg/dl (7-18); BUN/CREATININE RATIO 24.5 (10-20); CALCIUM 8.3 mg/dl (8.5-10.1); CARBON DIOXIDE 26 mmol/L (21-32); CHLORIDE 108 mmol/L (98-107); GLUCOSE 102 mg/dl (70-99); INR 1.1 (0.9-1.1); MAGNESIUM 2.1 mg/dl (1.8-2.4); PARTIAL THROMBOPLASTIN RATIO 1.2; POTASSIUM 3.9 mmol/L (3.5-5.1); PROTHROMBIN TIME (PATIENT) 12.1 SECONDS (9.0-12.0); SODIUM 143 mmol/L (136-145)
[2017-03-17 15:58] LABS: MANUAL MICROSCOPIC REQUIRED? NO; REVIEW REQ? NO
[2017-03-17 16:04] LABS: ALKALINE PHOSPHATASE 140 U/L (45-117)
[2017-03-17 16:10] LABS: BASO % 0.9 %; BASO ABS # 0.04 K/uL (0-0.2); COMPLETE YES; EOS % 3.7 %; HYPERSEGMENTED POLYS 1+; HYPOCHROMIA PRESENT; IG% 0.4 %; LYMPH % 15.5 %; LYMPH ABS # 0.71 K/uL (1.2-3.4); MONO % 7.4 %; NEUT % 72.1 %
[2017-03-17] MEDS ORDERED: ONDANSETRON INJ 2 MG/ML 2 ML VIAL IV PRN (17:30)
[2017-03-17] MEDS ORDERED: FLM4 PO (17:42)
[2017-03-17] MEDS ORDERED: SODIUM CHLORIDE 0.9% 1000ML 1,000 ML IV SCH (17:45)
[2017-03-17 18:28] VITALS: BP 165/84; PULSE 80; TEMP 36.8; O2SAT 97; Ht 172.7 cm; Wt 79.9 kg
--- NOTE | 2017-03-17 18:44 | History and Physical ---
History & Physical Date & Time of Service: Mar 17, 2017 at 18:13 Chief Complaint: Nausea,Slow Bleed In Gi Primary Care Physician: Marilynn Al D.O. 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 Per patient , he started to feel weak and nauseated over the weekend with associated bouts of dry heaving/vomiting small amounts of bile. He also endorses intermittent episodes of black tarry stool over the past few days. The patient's daughter, who serves as patient's main care provider, states that she was only notified of a black stool starting today. Denies any bright red blood. Follows with Dr. Milian and has a history of chronic anemia 2/2 a persistent GI bleed. Per chart review, anemia is 2/2 AVM bleeding but portal enteropathy cannot be ruled out. Was admitted in May, July and September of this year for anemia requiring transfusion. EGDs have shown non-bleeding varices. In October, patient was admitted for hematemesis and anemia and underwent variceal banding for prophylaxis. Last colonoscopy was 2015 and showed advanced adenoma (first discovered in 2010) without significant growth. Has a history of chronic anemia and with a varying hgb between 6.4-10.2 in the past year. Most recent hgb was 10.2 four days ago. Today, hgb is down to 8.5. Denies lightheadedness, visual changes, syncope, LOC, CP, SOB, abd pain, dysuria , diarrhea. Had a fall 3 weeks ago while ambulating with walker, but denies hitting his head or any LOC. Patient is not on blood thinners. 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 Status: Chronic (4) CKD (chronic kidney disease), stage III Status: Chronic (5) Dyslipidemia Status: Chronic (6) Esophageal varices Permanent Comment: Mar 2015- small varices, mild erosive antral gastritis Status: Chronic (7) GERD (gastroesophageal reflux disease) Status: Chronic (8) History of non-ST elevation myocardial infarction (NSTEMI) Permanent Comment: in October 2010 secondary to severe anemia Status: Chronic (9) Hypertension Status: Chronic (10) Hypothyroidism Status: Chronic (11) Paroxysmal atrial fibrillation Status: Chronic (12) Thrombocytopenia Status: Chronic Surgical Problems: (1) H/O colonoscopy Permanent Comment: 2010- adenomatous polyps; 11/2016- polyp, AVM's treated with thermal therapy and clipped, diverticulosis, hemorrhoids Status: Chronic (2) H/O esophagogastroduodenoscopy Permanent Comment: Mar 2015- small varices, mild erosive antral gastritis Status: Chronic Family History Coronary artery disease FATHER Tuberculosis MOTHER Social History Smoking Status: Former Smoker Drug Use: none Marital Status: Housing status: lives alone Occupational Status: retired Immunizations History of Influenza Vaccine: No History of Tetanus Vaccine?: Unknown History of Pneumococcal: No History of Hepatitis B Vaccine: No Allergies Coded Allergies: Lisinopril (Verified Allergy, Unknown, UNKNOWN, 03/17/17) Home Medications Scheduled Allopurinol (Zyloprim), 100 MG PO DAILY Amlodipine (Norvasc), 2.5 MG PO BID Atorvastatin (Lipitor), 40 MG PO HS Calcium Carbonate (Tums), 2 TAB PO HS Carvedilol (Coreg), 12.5 MG PO BID@1200,2100 Ferrous Sulfate (Kp Ferrous Sulfate), 1 TAB PO BID Furosemide (Lasix), 20 MG PO Q2D Levothyroxine Sodium (Levothyroxine Sodium), 75 MCG PO QAM Magnesium Oxide (Mg Supplement (Magnesium Oxide), 400 TAB PO QPM Omeprazole (Prilosec), 40 MG PO DAILY Potassium Chloride (Potassium Chloride Cr), 20 MEQ PO DAILY Rifaximin (Xifaxan), 550 MG PO BID Tamsulosin Hcl (Flomax), 0.4 MG PO HS Scheduled PRN Hydrocodone/Acetaminophen 7.5MG/325MG ([place] 7.5MG/325MG), 1 TAB PO Q6H PRN for Pain Review of Systems Ten systems reviewed and negative except as noted in the HPI. Physical Exam Vital Signs Date Time Temp Pulse Resp B/P (MAP) Pulse Ox O2 Delivery O2 Flow Rate FiO2 03/17/17 17:41 65 16 03/17/17 17:26 72 16 03/17/17 17:11 79 16 03/17/17 17:06 76 23 03/17/17 17:01 161/92 03/17/17 16:01 154/92 03/17/17 15:51 84 19 03/17/17 15:36 75 16 03/17/17 15:31 84 16 03/17/17 15:23 162/86 03/17/17 15:16 67 23 03/17/17 15:13 74 03/17/17 15:00 93 Room Air 03/17/17 14:33 36.7 77 19 177/88 98 Room Air General Appearance: no apparent distress Head: normocephalic, atraumatic Eyes: normal inspection, PERRL, sclerae normal (Conjunctival pallor ) ENT: normal ENT inspection, hearing grossly normal, pharynx normal (Dry mucous membranes ) Neck: supple, thyroid normal, trachea midline Respiratory/Chest: chest non-tender, lungs clear, normal breath sounds, no respiratory distress, no accessory muscle use Cardiovascular: no murmur, normal peripheral pulses, + irregularly irregular Abdomen/GI: normal bowel sounds, non tender, soft, no organomegaly Back: normal inspection Extremities/Musculoskelatal: normal inspection, no calf tenderness, no pedal edema, + swelling (Trace pretibial and ankle ) Neurologic/Psych: digital coordinator II-XII nml as tested, no motor/sensory deficits, alert, normal mood/affect, oriented x 3 Skin: warm/dry, no rash, + pallor Diagnostics Laboratory Results Results Past 24 Hours Test 03/17/17 15:05 03/17/17 15:30 Range/Units White Blood Count 4.59 4.8-10.8 K/uL Red Blood Count 3.19 4.7-6.1 M/uL Hemoglobin 8.8 14.0-18.0 g/dL Hematocrit 28.0 42-52 % Mean Corpuscular Volume 87.8 80-100 fL Mean Corpuscular Hemoglobin 27.6 25-34 pg Mean Corpuscular Hemoglobin Concent 31.4 32-36 g/dl Platelet Count 41 130-400 K/uL Mean Platelet Volume 11.1 7.4-10.4 fL Neutrophils (%) (Auto) 72.1 % Lymphocytes (%) (Auto) 15.5 % Monocytes (%) (Auto) 7.4 % Eosinophils (%) (Auto) 3.7 % Basophils (%) (Auto) 0.9 % Neutrophils # (Auto) 3.31 1.4-6.5 K/uL Lymphocytes # (Auto) 0.71 1.2-3.4 K/uL Monocytes # (Auto) 0.34 0.11-0.59 K/uL Eosinophils # (Auto) 0.17 0-0.5 K/uL Basophils # (Auto) 0.04 0-0.2 K/uL RDW Standard Deviation 51.9 36.4-46.3 fL RDW Coefficient of Variation 16.2 11.5-14.5 % Immature Granulocyte % (Auto) 0.4 % Immature Granulocyte # (Auto) 0.02 0.00-0.02 K/uL Hypersegmented Polys 1+ Hypochromasia PRESENT Prothrombin Time 12.1 9.0-12.0 SECONDS Prothromb Time International Ratio 1.1 0.9-1.1 Activated Partial Thromboplast Time 29.9 21.0-31.0 SECONDS Partial Thromboplastin Ratio 1.2 Sodium Level 143 136-145 mmol/L Potassium Level 3.9 3.5-5.1 mmol/L Chloride Level 108 98-107 mmol/L Carbon Dioxide Level 26 21-32 mmol/L Anion Gap 10.0 3-11 mmol/L Blood Urea Nitrogen 34 7-18 mg/dl Creatinine 1.40 0.60-1.40 mg/dl Est Creatinine Clear Calc Drug Dose 40.7 ml/min Estimated GFR () 54.6 Estimated GFR (Non- 47.1 BUN/Creatinine Ratio 24.5 10-20 Random Glucose 102 70-99 mg/dl Calcium Level 8.3 8.5-10.1 mg/dl Magnesium Level 2.1 1.8-2.4 mg/dl Total Bilirubin 1.0 0.2-1 mg/dl Aspartate Amino Transf (AST/SGOT) 36 15-37 U/L Alanine Aminotransferase (ALT/SGPT) 22 12-78 U/L Alkaline Phosphatase 140 45-117 U/L Troponin I < 0.015 0-0.045 ng/ml Total Protein 6.9 6.4-8.2 gm/dl Albumin 3.4 3.4-5.0 gm/dl Globulin 3.5 2.5-4.0 gm/dl Albumin/Globulin Ratio 1.0 0.9-2 Lipase 80 73-393 U/L Thyroid Stimulating Hormone (TSH) 2.990 0.300-4.500 uIu/ml Free Thyroxine 1.09 0.80-1.60 ng/dl Urine Color YELLOW Urine Appearance CLEAR CLEAR Urine pH 7.5 4.5-7.5 Urine Specific [place] 1.018 1.000-1.030 Urine Protein NEG NEG Urine Glucose (UA) NEG NEG Urine Ketones NEG NEG Urine Occult Blood NEG NEG Urine Nitrite NEG NEG Urine Bilirubin NEG NEG Urine Urobilinogen NEG NEG Urine Leukocyte Esterase NEG NEG CXR normal EKG Atrial fibrillation at 75 bpm Prolonged QT Impression Assessment and Plan This is a 82yo M with a PMH of 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 Persistent GI bleed, likely upper: -+ Melena, fatigue -Likely 2/2 AVM bleeding, h/o varices s/p banding in October 2016 -4 admissions in the past year related to anemia; transfused during all -Denies any hematemesis today. Intermittent black stools for 1-3 days -Hgb decreased from 10.2 on 03/03 to 8.8 today -Type and screen for transfusion if it becomes necessary -Trend H & H -PPI bolus and drip -Octreotide drip in setting of varices, portal HTN -Maintenance IVF -Clears, NPO after midnight -GI consulted Cirrhosis 2/2 NAFLD: -No hepatic encephalopathy, ascites -Continue home dose rifaximin Generalized weakness: -2/2 chronic anemia, persistent bleed -Endorses a recent fall -PT/OT eval Paroxysmal A Fib: -H/o A fib -Initial EKG with A fib at 75 bpm -Cont home dose Coreg -No anticoagulation in the setting of GI bleed Anemia of chronic disease: -2/2 cirrhosis, CKD -Hgb fluctuates between 6.4-10.2 in 2017 -Currently 8.8 -Type and screened -Transfuse if <8 HTN: -Stable -Continue home dose amlodipine, coreg, lasix (q2d, scheduled for tomorrow) CKD III: -Cr is close to baseline at 1.3 -Avoid nephrotoxic agents -Maintenance IVF CAD: -H/o NSTEMI in the setting of blood loss -Stable, no CP or ischemic change on EKG -Aspirin has been d/c'd in the setting of persistent bleed -Contine statin Thrombocytopenia: -2/2 cirrhosis -SCDs for DVT ppx -Monitor Hypothyroidism: -TSH, free T4 wnl -Continue home dose levothyroxine Chronic back pain: -Worsened lately 2/2 compression of L1 -Continue home dose hydrocodone 7.5-325mg q6H DVT Ppx: SCDs Code status: DNR per advanced directive and discussed with family PCP: Mikaela Dispo: SW consulted to help with discharge placement due to patient >80yo, living alone. Patient seen in collaboration with Dr. Mckeon. Please see addendum. Level of Care Telemetry Resuscitation Status DO NOT RESUSCITATE VTE Prophylaxis VTE Risk Assessment Done? Y/N: Yes Risk Level: Moderate Given or contraindicated: SCD's, Contraindicated Social Service Consult >80 yr.& Lives Alone
[2017-03-17] MEDS ORDERED: IV FLUIDS COMPLETED PRN (18:45)
[2017-03-17] MEDS ORDERED: OCTREOTIDE IV BOLUS & DRIP IV STA (18:59)
[2017-03-17] MEDS ORDERED: OCTREOTIDE ACETATE INJ 100 MCG in SYR 9 ML PHA PREPARED IV SCH (19:30)
--- NOTE | 2017-03-17 19:31 | History and Physical ---
History & Physical Date of Service Mar 17, 2017. History & Physical This is an 82 year old male with a PMH of liver cirrhosis, portal hypertension, hx. of varices and upper GI bleed, hx. of banding, thrombocytopenia, CKD stage 3 , hx. of NSTEMI/CAD, paroxysmal A. fib - presents with dark stool/melena. Stated that he had weakness, nausea/vomiting - developed dark stools this morning. Denies chest pain/shortness breath. Has had bleeding in the past, including multiple EGDs and had some banding of esophageal varices in the past. Currently, he has no symptoms besides weakness. Hgb stable, hemodynamically stable VITALS: Last Vital Signs Documentation Date Time Temp Pulse Resp B/P (MAP) Pulse Ox O2 Delivery O2 Flow Rate FiO2 03/17/17 18:28 36.8 80 20 165/84 97 Room Air GEN: no distress, +weakness, has difficulty recalling history; possible underlying dementia HEENT: NC/AT CVS: +S1, S2, RRR LUNGS: CTA b/l, no wheezing ABD: soft, NT/ND EXT: no pedal edema NEURO: no focal deficits noted UGIB Hx. of Liver Cirrhosis, Portal HTN, Varices melena, likely UGIB monitor in tele started on PPI drip, will add Sandostatin drip due to history of varices/portal HTN/liver cirrhosis trend H/H, monitor vitals IVFs + clears NPO after midnight consulted GI for further evaluation, possible EGD continue Rifaximin Chronic Thrombocytopenia monitor platelets CKD stage 3 creatinine is close to his baseline gentle hydration and avoid nephrotoxic agents when able Paroxysmal A. Fib not an anticoag candidate currently in NSR continue Coreg CAD Hx. of STEMI due to blood loss continue statin, Coreg DVT ppx SCDs DNR
[2017-03-17] MEDS: OCTREOTIDE ACETATE INJ 500 MCG in NSS 100ML IV SCH (19:53)
[2017-03-17 20:08] VITALS: BP 167/82; PULSE 71; TEMP 36.7; O2SAT 97
[2017-03-17] MEDS: PANTOprazole INJ 40 MG in DEXTROSE 5% 100ML IV SCH (20:21)
[2017-03-17] MEDS: CALCIUM CARBONATE 500 MG CHEWABLE PO SCH (20:24)
[2017-03-17] MEDS: MAGNESIUM OXIDE 400 MG TAB PO SCH (20:30)
[2017-03-17] MEDS: TAMSULOSIN HCL 0.4 MG CAP PO SCH (20:31)
[2017-03-17] MEDS: CARVEDILOL 12.5 MG TAB PO SCH (20:31)
[2017-03-17] MEDS: ATORVASTATIN 40 MG TAB PO SCH (20:31)
[2017-03-17] MEDS: RIFAXIMIN TAB 550 MG TAB PO SCH (20:32)
[2017-03-17] MEDS: AMLODIPINE BESYLATE 5 MG TAB PO SCH (20:34)
[2017-03-17] MEDS ORDERED: FERROUS SULFATE 325 MG TAB PO SCH (21:00)
[2017-03-17] MEDS: FERROUS SULFATE 325 MG TAB PO SCH (21:27)
[2017-03-17] MEDS: HYDROCODONE/ACETAMINOPHEN 7.5/325MG TAB PO PRN (21:54)
[2017-03-17] MEDS ORDERED: INFLUENZA ADMINISTRATION CHARGE ONE (22:45)
[2017-03-17] MEDS ORDERED: INFLUENZA VACCINE HIGH DOSE 65+ 0.5 ML SYR IM. ONE (22:45)
[2017-03-17 23:08] LABS: HEMATOCRIT 27.5 % (42-52)
[2017-03-17 23:39] VITALS: BP 147/78; PULSE 79; TEMP 36.5; O2SAT 96
[2017-03-18] VITALS (7 sets, daily range): BP systolic 147–161; BP diastolic 72–86; PULSE 59–90; TEMP 36.5–36.8; O2SAT 95–98
[2017-03-18] MEDS: PANTOprazole INJ 40 MG in DEXTROSE 5% 100ML IV SCH ×2 (02:56→07:43)
[2017-03-18] MEDS: HYDROCODONE/ACETAMINOPHEN 7.5/325MG TAB PO PRN ×2 (02:57→15:15)
[2017-03-18] MEDS: OCTREOTIDE ACETATE INJ 500 MCG in NSS 100ML IV SCH (05:19)
[2017-03-18] MEDS: LEVOTHYROXINE 75 MCG TAB PO SCH ×2 (05:48→10:07)
[2017-03-18 07:10] LABS: HEMATOCRIT 25.5 % (42-52); MEAN CELL VOLUME 87.6 fL (80-100); MEAN CORPUSCULAR HEMOGLOBIN 28.2 pg (25-34); MEAN CORPUSCULAR HGB CONC 32.2 g/dl (32-36); RED BLOOD COUNT 2.91 M/uL (4.7-6.1); WHITE BLOOD COUNT 3.26 K/uL (4.8-10.8)
[2017-03-18 07:20] LABS: INR 1.2 (0.9-1.1); PROTHROMBIN TIME (PATIENT) 12.6 SECONDS (9.0-12.0)
[2017-03-18 07:29] LABS: PLATELET COUNT 35 K/uL (130-400)
[2017-03-18 07:31] LABS: PLT ESTIMATE SIGNIFIC DECREASED
[2017-03-18 07:46] LABS: BUN/CREATININE RATIO 16.9 (10-20); CALCIUM 7.9 mg/dl (8.5-10.1); CREATININE 1.36 mg/dl (0.60-1.40); POTASSIUM 3.7 mmol/L (3.5-5.1)
[2017-03-18 07:49] LABS: ALB/GLOB RATIO 0.9 (0.9-2)
[2017-03-18] MEDS ORDERED: FUROSEMIDE 20 MG TAB PO SCH (09:00)
[2017-03-18] MEDS ORDERED: NON-FORMULARY MEDICATION (Omeprazole (Prilosec) 40 MG) PO SCH (09:00)
[2017-03-18] MEDS: FERROUS SULFATE 325 MG TAB PO SCH ×2 (10:05→19:56)
[2017-03-18] MEDS: AMLODIPINE BESYLATE 5 MG TAB PO SCH ×2 (10:05→19:55)
[2017-03-18] MEDS: RIFAXIMIN TAB 550 MG TAB PO SCH ×2 (10:06→19:54)
[2017-03-18] MEDS: POTASSIUM CHLORIDE 20 MEQ TABCR PO SCH (10:07)
[2017-03-18] MEDS: ALLOPURINOL 100 MG TAB PO SCH (10:07)
[2017-03-18 11:06] LABS: HEMATOCRIT 26.5 % (42-52)
--- NOTE | 2017-03-18 11:10 | Gastrointestinal Consultation ---
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 Pt reports over the last few months had hx of falls, but denies any head trauma or LOC. A week ago he started to notice black loose stools but no bright red blood or clots. Also denies any associated dizziness, CP, SOB, abd pain. + mild nausea but no vomiting. Upon eval she was noted to have hgb of 8.5. Baseline between 6-10. Plt 35. INR 1.2. He is not on any blood thinners. He's been on Ferrous Sulfate 325mg BID. Pt has hx esophageal varices, portal gastropathy, colonic AVMs. 3 EGDs since May, last one done in 09/2016 when he was admitted for hematochezia. At that time he was found to have Grade II esophageal varices w red leroy signs but no stigmata of bleeding. The varices were banded. + portal gastropathy as well. He' s been on Carvedilol 12.5mg BID. Last colonoscopy 11/2015 w AVMs noted, APC'd and clipped, diverticulosis. He also has hx of adenomatous polyps in 2010. In 2010 VCE ordered but not done. Since admitted pt had received PPI bolus and gtt, and started on Octreotide. He didn't have any BMs, Hgb stable overnight around 8. Current abd exam benign for fluid wave/ascites, abd pain. Past Medical/Surgical History Medical Problems: (1) Abdominal pain Status: Acute (2) Abnormal CT of the head Status: Acute (3) Acute renal failure Status: Acute (4) Anemia Status: Chronic (5) Fall Status: Acute (6) GI bleed Status: Acute (7) GI bleed Status: Acute (8) Low back pain Status: Acute (9) Lumbar compression fracture Status: Acute (10) Pancytopenia Status: Acute (11) Severe anemia Status: Acute (12) Umbilical hernia Status: Acute (13) Upper GI bleed Status: Acute (14) Weakness Status: Acute (15) Weakness Status: Acute Past Medical History: As above, BPH, dyslipidemia, NSTEMI in 2011. Past Surgical History: EGDs and colonoscopies Family History Coronary artery disease FATHER Tuberculosis MOTHER Social History Smoking Status: Former Smoker Alcohol Use: none Drug Use: none Marital Status: Housing Status: skilled nursing Occupation Status: retired Allergies Coded Allergies: Lisinopril (Verified Allergy, Unknown, UNKNOWN, 03/17/17) Current Medications Home Meds and Scripts Medications Dose Route/Sig Max Daily Dose Days Date Category Dose Instructions [place] 7.5MG/325MG (Acetaminophen/Hydrocodone Bitart) Tab 1 Tab PO Q6H PRN 03/17/17 Reported PRN PAIN Tums (Calcium Carbonate) 500 Mg Chew 2 Tab PO HS 01/29/17 Reported Lasix (Furosemide) 20 Mg Tab 20 Mg PO Q2D 90 01/29/17 Reported Prilosec (Omeprazole) 20 Mg Capcr 40 Mg PO DAILY 01/29/17 Reported Norvasc (Amlodipine Besylate) 2.5 Mg Tab 2.5 Mg PO BID 01/29/17 Reported Potassium Chloride Cr (Potassium Chloride) 10 Meq Tab 20 Meq PO DAILY 01/19/17 Reported Xifaxan (Rifaximin) 550 Mg Tab 550 Mg PO BID 30 10/03/16 Rx Levothyroxine Sodium 75 Mcg Tab 75 Mcg PO QAM 90 07/11/16 Reported Kp Ferrous Sulfate (Ferrous Sulfate) 325 Mg Tab 1 Tab PO BID 30 07/11/16 Reported Coreg (Carvedilol) 25 Mg Tab 12.5 Mg PO BID@1200,2100 11/22/15 Reported NOON & EVENING Lipitor (Atorvastatin Calcium) 80 Mg Tab 40 Mg PO HS 11/22/15 Reported Flomax (Tamsulosin Hcl) 0.4 Mg Cap 0.4 Mg PO HS 11/22/15 Reported Zyloprim (Allopurinol) 100 Mg Tab 100 Mg PO DAILY 11/22/15 Reported Magnesium Oxide (Magnesium Oxide (Mg Supplement) 400 Mg Tab 400 Tab PO QPM 11/22/15 Reported Review of Systems Constitutional: + weakness, No fever, No chills Respiratory: No cough, No shortness of breath Cardiac: No chest pain Abdomen: + see HPI, No pain, No nausea, No vomiting Skin: No rash, No itch Physical Exam Date Time Temp Pulse Resp B/P (MAP) Pulse Ox O2 Delivery O2 Flow Rate FiO2 03/18/17 08:00 Room Air 03/18/17 07:56 36.7 90 18 160/86 (110) 96 Room Air 03/18/17 03:45 Room Air 03/18/17 03:08 36.6 69 16 151/80 (103) 97 Room Air 03/18/17 00:00 Room Air 03/17/17 23:39 36.5 79 20 147/78 (101) 96 Room Air 03/17/17 20:08 36.7 71 16 167/82 (110) 97 Room Air 03/17/17 20:00 Room Air 03/17/17 18:28 36.8 80 20 165/84 97 Room Air 03/17/17 17:41 65 16 03/17/17 17:26 72 16 03/17/17 17:11 79 16 03/17/17 17:06 76 23 03/17/17 17:01 161/92 03/17/17 16:01 154/92 03/17/17 15:51 84 19 03/17/17 15:36 75 16 03/17/17 15:31 84 16 03/17/17 15:23 162/86 03/17/17 15:16 67 23 03/17/17 15:13 74 03/17/17 15:00 93 Room Air 03/17/17 14:33 36.7 77 19 177/88 98 Room Air General Appearance: WD/WN, no apparent distress Eyes: normal inspection, PERRL, EOMI Neck: supple, no JVD, trachea midline Respiratory/Chest: no respiratory distress, no accessory muscle use, + decreased breath sounds Cardiovascular: regular rate, rhythm, no gallop, no murmur Abdomen: normal bowel sounds, non tender, soft Extremities: normal inspection, no pedal edema, no calf tenderness Neurologic/Psych: alert, normal mood/affect, oriented x 3 Skin: normal color, no jaundice, no rash Laboratory Results Last 24 Hours Test 03/17/17 15:05 03/17/17 15:30 03/17/17 22:55 03/18/17 06:51 White Blood Count 4.59 K/uL 3.26 K/uL Red Blood Count 3.19 M/uL 2.91 M/uL Hemoglobin 8.8 g/dL 8.9 g/dL 8.2 g/dL Hematocrit 28.0 % 27.5 % 25.5 % Mean Corpuscular Volume 87.8 fL 87.6 fL Mean Corpuscular Hemoglobin 27.6 pg 28.2 pg Mean Corpuscular Hemoglobin Concent 31.4 g/dl 32.2 g/dl Platelet Count 41 K/uL 35 K/uL Mean Platelet Volume 11.1 fL 11.0 fL Neutrophils (%) (Auto) 72.1 % Lymphocytes (%) (Auto) 15.5 % Monocytes (%) (Auto) 7.4 % Eosinophils (%) (Auto) 3.7 % Basophils (%) (Auto) 0.9 % Neutrophils # (Auto) 3.31 K/uL Lymphocytes # (Auto) 0.71 K/uL Monocytes # (Auto) 0.34 K/uL Eosinophils # (Auto) 0.17 K/uL Basophils # (Auto) 0.04 K/uL RDW Standard Deviation 51.9 fL 52.1 fL RDW Coefficient of Variation 16.2 % 16.2 % Immature Granulocyte % (Auto) 0.4 % Immature Granulocyte # (Auto) 0.02 K/uL Hypersegmented Polys 1+ Hypochromasia PRESENT Prothrombin Time 12.1 SECONDS 12.6 SECONDS Prothromb Time International Ratio 1.1 1.2 Activated Partial Thromboplast Time 29.9 SECONDS Partial Thromboplastin Ratio 1.2 Sodium Level 143 mmol/L 141 mmol/L Potassium Level 3.9 mmol/L 3.7 mmol/L Chloride Level 108 mmol/L 106 mmol/L Carbon Dioxide Level 26 mmol/L 25 mmol/L Anion Gap 10.0 mmol/L 10.0 mmol/L Blood Urea Nitrogen 34 mg/dl 23 mg/dl Creatinine 1.40 mg/dl 1.36 mg/dl Est Creatinine Clear Calc Drug Dose 40.7 ml/min 41.9 ml/min Estimated GFR () 54.6 56.6 Estimated GFR (Non- 47.1 48.8 BUN/Creatinine Ratio 24.5 16.9 Random Glucose 102 mg/dl 110 mg/dl Calcium Level 8.3 mg/dl 7.9 mg/dl Magnesium Level 2.1 mg/dl Total Bilirubin 1.0 mg/dl 1.1 mg/dl Aspartate Amino Transf (AST/SGOT) 36 U/L 35 U/L Alanine Aminotransferase (ALT/SGPT) 22 U/L 22 U/L Alkaline Phosphatase 140 U/L 109 U/L Troponin I < 0.015 ng/ml Total Protein 6.9 gm/dl 6.3 gm/dl Albumin 3.4 gm/dl 3.0 gm/dl Globulin 3.5 gm/dl 3.3 gm/dl Albumin/Globulin Ratio 1.0 0.9 Lipase 80 U/L Thyroid Stimulating Hormone (TSH) 2.990 uIu/ml Free Thyroxine 1.09 ng/dl Urine Color YELLOW Urine Appearance CLEAR Urine pH 7.5 Urine Specific [place] 1.018 Urine Protein NEG Urine Glucose (UA) NEG Urine Ketones NEG Urine Occult Blood NEG Urine Nitrite NEG Urine Bilirubin NEG Urine Urobilinogen NEG Urine Leukocyte Esterase NEG Platelet Estimate SIGNIFIC DECREASED Test 03/18/17 10:35 Impression Patient is a 82 year old male w NAFLD cirrhosis (MELD 13), who presented w black stools, anemia Hgb of 8. He has hx of chronic anemia and GI bleeding related to esophageal varices, portal gastropathy, colonic AVMs. He had 3 EGDs this year, last one done in September showed Grade II varices, + red leroy no stigmata of bleeding - these were banded. Last colonoscopy in 2015, AVMs APC'd and clipped. His Hgb stayed stable since last night, no signs of melena, hematemesis. Also hemodynamically stable. Given these and also previously banded varices, on beta blockers, less likely having an episode of variceal bleed. Anemia multifactorial from CKD, cirrhosis, portal gastropathy, possible colonic and ? small bowel AVMs. Plan - DC Octreotide and PPI gtt; Continue Protonix 40mg IV BID - Continue Lactulose, Carvedilol, Lasix for now. - CL diet. - Monitor H/H and transfuse prn. - Discussed w Dr. Johnson - no plans of EGD eval at this time, unless anemia worsen and also having mo s/s of GI bleeding. Would consider repeat EGD and Colonoscopy in outpt setting, and possible VCE as well. Will continue to follow pt - He should f/u w Heme/Onc (seen by Dr. Sams in 2010) to discuss blood transfusions on prn basis and also Venofer IV. Continue Ferrous Sulfate for now. I have personally seen and examined patient with PHYLLIS Dumas. Her note reflects my exam and findings. I agree with her impression and plan. No signs of high grade active bleeding. Most likely from portal gastropathy not varices. Riccardo Johnson M.D.
[2017-03-18] MEDS: CARVEDILOL 12.5 MG TAB PO SCH ×2 (12:00→19:57)
[2017-03-18] MEDS: TAMSULOSIN HCL 0.4 MG CAP PO SCH (19:52)
[2017-03-18] MEDS: PANTOprazole INJ 40 MG in SYRINGE 0 ML IV SCH (19:53)
[2017-03-18] MEDS: MAGNESIUM OXIDE 400 MG TAB PO SCH (19:53)
[2017-03-18] MEDS: CALCIUM CARBONATE 500 MG CHEWABLE PO SCH (19:54)
[2017-03-18] MEDS: ATORVASTATIN 40 MG TAB PO SCH (19:57)
--- NOTE | 2017-03-18 20:02 | Progress Note ---
Medicine Progress Note Date & Time of Visit: Mar 18, 2017 at ~ 19:00 . Subjective No abdominal pain, nausea, vomiting. No further dark stools. No chest pain. No cough or SOB. . Objective Last 8 Hrs Date Time Temp Pulse Resp B/P (MAP) Pulse Ox O2 Delivery O2 Flow Rate FiO2 03/18/17 19:21 36.5 59 17 147/78 (101) 97 Room Air 03/18/17 16:00 Room Air 03/18/17 15:09 36.8 71 18 154/81 (105) 98 Room Air Physical Exam: General- no distress Neck- no JVD Lungs-clear Heart- RRR, no gallop Abdomen- + BS, soft, nontender Extremities- no pretibial edema or calf tenderness Neuro- alert . Laboratory Results: Last 24 Hours Test 03/17/17 22:55 03/18/17 06:51 03/18/17 10:54 Hemoglobin 8.9 g/dL 8.2 g/dL 8.4 g/dL Hematocrit 27.5 % 25.5 % 26.5 % White Blood Count 3.26 K/uL Red Blood Count 2.91 M/uL Mean Corpuscular Volume 87.6 fL Mean Corpuscular Hemoglobin 28.2 pg Mean Corpuscular Hemoglobin Concent 32.2 g/dl RDW Standard Deviation 52.1 fL RDW Coefficient of Variation 16.2 % Platelet Count 35 K/uL Mean Platelet Volume 11.0 fL Platelet Estimate SIGNIFIC DECREASED Prothrombin Time 12.6 SECONDS Prothromb Time International Ratio 1.2 Sodium Level 141 mmol/L Potassium Level 3.7 mmol/L Chloride Level 106 mmol/L Carbon Dioxide Level 25 mmol/L Anion Gap 10.0 mmol/L Blood Urea Nitrogen 23 mg/dl Creatinine 1.36 mg/dl Est Creatinine Clear Calc Drug Dose 41.9 ml/min Estimated GFR () 56.6 Estimated GFR (Non- 48.8 BUN/Creatinine Ratio 16.9 Random Glucose 110 mg/dl Calcium Level 7.9 mg/dl Total Bilirubin 1.1 mg/dl Aspartate Amino Transf (AST/SGOT) 35 U/L Alanine Aminotransferase (ALT/SGPT) 22 U/L Alkaline Phosphatase 109 U/L Total Protein 6.3 gm/dl Albumin 3.0 gm/dl Globulin 3.3 gm/dl Albumin/Globulin Ratio 0.9 Assessment & Plan GI BLEED History of chronic 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 Also has esophageal varices and erosive gastropathy per previous EGD. Apparent melena at home. Stools black, heme + in ED. Hgb 8.8 on admission. Plts 41,000. INR & PTT normal. Hemodynamically stable. Hgb this morning 8.2. Melena resolving. Seen by GI. No need for repeat endoscopic evaluation at this time. CIRRHOSIS Attributed to nonalcoholic fatty liver disease. Associated with portal hypertension / grade II esophageal varices. Ongoing management per GI. GERD Continue PPI. CORONARY ARTERY DISEASE No anginal symptoms. No acute EKG changes. Continue carvedilol with hold parameters. PAROXYSMAL ATRIAL FIBRILLATION Currently in sinus rhythm. Continue carvedilol with hold parameters. No anticoagulation due to chronic GI blood loss. HYPERTENSION BP's stable. Continue amlodipine and carvedilol. Follow and titrate Rx. CKD III Serum creatinine 1.36, compared to recent baseline of 1.3 - 1.9. Follow. HYPOTHYROIDISM Continue levothyroxine. ANEMIA Multifactorial- acute + chronic blood loss, anemia of chronic disease. THROMBOCYTOPENIA Due to cirrhosis. VTE PROPHYLAXIS No anticoagulants due to GI bleed. SCD's. Ambulate as able. DISPOSITION Expected discharge to home. Internal Medicine follow-up with Dr. Al. Daughter given update by phone. . Current Inpatient Medications: Current Inpatient Medications Medications (Trade) Dose Ordered Sig/Med Route Start Time Stop Time Status Last Admin Dose Admin Ondansetron HCl (Zofran Inj) 4 mg Q6H PRN IV 03/17/17 17:30 04/16/17 17:29 Allopurinol (Zyloprim Tab) 100 mg DAILY PO 03/18/17 09:00 04/17/17 08:59 03/18/17 10:07 100 MG Amlodipine Besylate (Norvasc Tab) 2.5 mg BID PO 03/17/17 21:00 04/16/17 20:59 03/18/17 19:55 2.5 MG Atorvastatin Calcium (Lipitor Tab) 40 mg HS PO 03/17/17 21:00 04/16/17 20:59 03/18/17 19:57 40 MG Calcium Carbonate (Tums Chew Tab) 1,000 mg HS PO 03/17/17 21:00 04/16/17 20:59 03/18/17 19:54 1,000 MG Carvedilol (Coreg Tab) 12.5 mg BID@1200,2100 PO 03/17/17 21:00 04/16/17 20:59 03/18/17 12:00 12.5 MG Furosemide (Lasix Tab) 20 mg Q2D PO 03/18/17 09:00 04/17/17 08:59 03/18/17 10:07 20 MG Acetaminophen/ Hydrocodone Bitart ([place] 7.5/325 Tab) 1 tab Q6H PRN PO 03/17/17 17:45 03/31/17 17:44 03/18/17 15:15 1 TAB Levothyroxine Sodium (Synthroid Tab) 75 mcg DAILYBB PO 03/17/17 06:00 04/16/17 05:59 03/18/17 10:07 75 MCG Rifaximin (Xifaxan Tab) 550 mg BID PO 03/17/17 21:00 04/16/17 20:59 03/18/17 19:54 550 MG Tamsulosin HCl (Flomax Cap) 0.4 mg HS PO 03/17/17 21:00 04/16/17 20:59 03/18/17 19:52 0.4 MG Magnesium Oxide (Mag-Ox Tab) 400 mg QPM PO 03/17/17 21:00 04/16/17 20:59 03/18/17 19:53 400 MG Potassium Chloride (Klor-Con Tab) 20 meq DAILY PO 03/18/17 09:00 04/17/17 08:59 03/18/17 10:07 20 MEQ Miscellaneous (Iv Fluids Completed) 1 ea PRN PRN N/A 03/17/17 18:45 03/17/18 18:44 Ferrous Sulfate (Feosol Tab) 325 mg BID PO 03/17/17 21:00 04/16/17 20:59 03/18/17 19:56 325 MG Pantoprazole Sodium 40 mg/ Syringe 10 ml @ 5 mls/min DAILY@,21 IV 03/18/17 21:00 04/17/17 20:59 03/18/17 19:53 5 MLS/MIN
[2017-03-19] MEDS: HYDROCODONE/ACETAMINOPHEN 7.5/325MG TAB PO PRN (03:27)
[2017-03-19 03:57] VITALS: BP 154/80; PULSE 72; TEMP 36.8; O2SAT 99
[2017-03-19 05:49] LABS: MEAN CELL VOLUME 86.8 fL (80-100); MEAN CORPUSCULAR HEMOGLOBIN 27.8 pg (25-34); MEAN CORPUSCULAR HGB CONC 32.1 g/dl (32-36); RED BLOOD COUNT 3.34 M/uL (4.7-6.1); WHITE BLOOD COUNT 4.17 K/uL (4.8-10.8)
[2017-03-19 05:54] LABS: MEAN PLATELET VOLUME 10.6 fL (7.4-10.4); PLATELET COUNT 40 K/uL (130-400)
[2017-03-19] MEDS: LEVOTHYROXINE 75 MCG TAB PO SCH (06:01)
[2017-03-19 06:17] LABS: BUN/CREATININE RATIO 15.2 (10-20); CALCIUM 8.3 mg/dl (8.5-10.1); CREATININE 1.65 mg/dl (0.60-1.40); POTASSIUM 3.7 mmol/L (3.5-5.1)
[2017-03-19 06:22] LABS: FERRITIN 84.1 ng/ml (8.0-388.0)
[2017-03-19 07:45] VITALS: BP 148/82; PULSE 79; TEMP 36.4; O2SAT 95
[2017-03-19] MEDS: PANTOprazole INJ 40 MG in SYRINGE 0 ML IV SCH (08:28)
[2017-03-19] MEDS: ALLOPURINOL 100 MG TAB PO SCH (08:28)
[2017-03-19] MEDS: RIFAXIMIN TAB 550 MG TAB PO SCH (08:28)
[2017-03-19] MEDS: FERROUS SULFATE 325 MG TAB PO SCH (08:28)
[2017-03-19] MEDS: POTASSIUM CHLORIDE 20 MEQ TABCR PO SCH (08:29)
[2017-03-19] MEDS: AMLODIPINE BESYLATE 5 MG TAB PO SCH (08:29)
--- NOTE | 2017-03-19 08:54 | Gastroenterology Progress Note ---
Progress Note Date of Service: Mar 19, 2017 Subjective Pt evaluation today including: conversation w/ patient, physical exam, chart review, lab review, review of inpatient medication list Pt feels well, denies any n/v, abd pain. He is eating AHA diet. No more black stools. Hgb up to 9.3, Cr 1.6 Review of Systems Constitutional: No fever, No chills Respiratory: No cough, No shortness of breath Cardiac: No chest pain Abdomen: No pain, No nausea, No vomiting Medications Current Inpatient Medications Medications (Trade) Dose Ordered Sig/Med Route Start Time Stop Time Status Last Admin Dose Admin Ondansetron HCl (Zofran Inj) 4 mg Q6H PRN IV 03/17/17 17:30 04/16/17 17:29 Allopurinol (Zyloprim Tab) 100 mg DAILY PO 03/18/17 09:00 04/17/17 08:59 03/19/17 08:28 100 MG Amlodipine Besylate (Norvasc Tab) 2.5 mg BID PO 03/17/17 21:00 04/16/17 20:59 03/19/17 08:29 2.5 MG Atorvastatin Calcium (Lipitor Tab) 40 mg HS PO 03/17/17 21:00 04/16/17 20:59 03/18/17 19:57 40 MG Calcium Carbonate (Tums Chew Tab) 1,000 mg HS PO 03/17/17 21:00 04/16/17 20:59 03/18/17 19:54 1,000 MG Carvedilol (Coreg Tab) 12.5 mg BID@1200,2100 PO 03/17/17 21:00 04/16/17 20:59 03/18/17 12:00 12.5 MG Furosemide (Lasix Tab) 20 mg Q2D PO 03/18/17 09:00 04/17/17 08:59 03/18/17 10:07 20 MG Acetaminophen/ Hydrocodone Bitart ([place] 7.5/325 Tab) 1 tab Q6H PRN PO 03/17/17 17:45 03/31/17 17:44 03/19/17 03:27 1 TAB Levothyroxine Sodium (Synthroid Tab) 75 mcg DAILYBB PO 03/17/17 06:00 04/16/17 05:59 11/15/17 06:01 75 MCG Rifaximin (Xifaxan Tab) 550 mg BID PO 03/17/17 21:00 04/16/17 20:59 03/19/17 08:28 550 MG Tamsulosin HCl (Flomax Cap) 0.4 mg HS PO 03/17/17 21:00 04/16/17 20:59 03/18/17 19:52 0.4 MG Magnesium Oxide (Mag-Ox Tab) 400 mg QPM PO 03/17/17 21:00 04/16/17 20:59 03/18/17 19:53 400 MG Potassium Chloride (Klor-Con Tab) 20 meq DAILY PO 03/18/17 09:00 04/17/17 08:59 03/19/17 08:29 20 MEQ Miscellaneous (Iv Fluids Completed) 1 ea PRN PRN N/A 03/17/17 18:45 03/17/18 18:44 Ferrous Sulfate (Feosol Tab) 325 mg BID PO 03/17/17 21:00 04/16/17 20:59 03/19/17 08:28 325 MG Pantoprazole Sodium 40 mg/ Syringe 10 ml @ 5 mls/min DAILY@ IV 03/18/17 21:00 04/17/17 20:59 03/19/17 08:28 5 MLS/MIN Objective Vital Signs Date Time Temp Pulse Resp B/P (MAP) Pulse Ox O2 Delivery O2 Flow Rate FiO2 03/19/17 07:45 36.4 79 18 148/82 (104) 95 Room Air 03/19/17 07:30 Room Air 03/19/17 04:00 Room Air 03/19/17 03:57 36.8 72 17 154/80 (104) 99 Room Air 03/19/17 00:00 Room Air 03/18/17 23:55 36.7 71 19 161/72 (101) 95 Room Air 03/18/17 20:00 Room Air 03/18/17 19:31 98 Room Air 03/18/17 19:21 36.5 59 17 147/78 (101) 97 Room Air 03/18/17 16:00 Room Air 03/18/17 15:09 36.8 71 18 154/81 (105) 98 Room Air 03/18/17 12:00 Room Air 03/18/17 11:35 36.5 63 18 147/81 (103) 97 Room Air Physical Exam General Appearance: WD/WN, no apparent distress Eyes: normal inspection, PERRL, EOMI Neck: supple, no JVD, trachea midline Respiratory/Chest: normal breath sounds, no respiratory distress, no accessory muscle use Cardiovascular: regular rate, rhythm, no gallop, no murmur Abdomen: normal bowel sounds, non tender, soft Extremities: normal inspection, no pedal edema, no calf tenderness Neurologic/Psych: alert, normal mood/affect, oriented x 3 Skin: normal color, no jaundice, no rash Laboratory Results Last 24 Hours Test 03/18/17 10:54 03/19/17 05:33 Hemoglobin 8.4 g/dL 9.3 g/dL Hematocrit 26.5 % 29.0 % White Blood Count 4.17 K/uL Red Blood Count 3.34 M/uL Mean Corpuscular Volume 86.8 fL Mean Corpuscular Hemoglobin 27.8 pg Mean Corpuscular Hemoglobin Concent 32.1 g/dl RDW Standard Deviation 51.0 fL RDW Coefficient of Variation 16.1 % Platelet Count 40 K/uL Mean Platelet Volume 10.6 fL Sodium Level 140 mmol/L Potassium Level 3.7 mmol/L Chloride Level 105 mmol/L Carbon Dioxide Level 27 mmol/L Anion Gap 8.0 mmol/L Blood Urea Nitrogen 25 mg/dl Creatinine 1.65 mg/dl Est Creatinine Clear Calc Drug Dose 34.5 ml/min Estimated GFR () 44.8 Estimated GFR (Non- 38.6 BUN/Creatinine Ratio 15.2 Random Glucose 110 mg/dl Calcium Level 8.3 mg/dl Iron Level 52 mcg/dl Total Iron Binding Capacity 267 mcg/dl Transferrin 213 mg/dl Transferrin % Saturation 17 % Ferritin 84.1 ng/ml Assessment and Plan Patient is a 82 year old male w NAFLD cirrhosis (MELD 13), who presented w black stools, anemia Hgb of 8. He has hx of chronic anemia and GI bleeding related to esophageal varices, portal gastropathy, colonic AVMs. He had 3 EGDs this year, last one done in September showed Grade II varices, + red leroy no stigmata of bleeding - these were banded. Last colonoscopy in 2015, AVMs APC'd and clipped. His Hgb stayed stable since last night, no signs of melena, hematemesis. Also hemodynamically stable. Given these and also previously banded varices, on beta blockers, less likely having an episode of variceal bleed. Anemia multifactorial from CKD, cirrhosis, portal gastropathy, possible colonic and ? small bowel AVMs. No more black stools, Hgb up to 9 today. Denies any abd pain, n/v. Tolerating regular consistency diet. Plans - Protonix 40mg PO BID - Continue Lactulose, Carvedilol. Will hold Lasix given bump in Cr, and no ascites/edema. Monitor Cr and restart to home dose once normalized. - AHA, 2g Na diet. - Monitor H/H and transfuse prn. - Discussed w Dr. Johnson - no plans of EGD eval at this time, unless anemia worsen and also having mo s/s of GI bleeding. Would consider repeat EGD and Colonoscopy in outpt setting, and possible VCE as well. Will continue to follow pt - He should f/u w Heme/Onc (seen by Dr. Sams in 2010) to discuss blood transfusions on prn basis and also Venofer IV. Continue Ferrous Sulfate for now. - No contraindication for DC from GI standpoint I performed a history and physical examination of the patient. I have discussed the patient's case, impression and plan with PHYLLIS Dumas. Her note reflects my findings and plan. No signs of bleeding. PPI BID indefinitely. Riccardo Johnson MD
[2017-03-19 11:02] VITALS: BP 137/70; PULSE 71; TEMP 36.5; O2SAT 98
[2017-03-19] MEDS: CARVEDILOL 12.5 MG TAB PO SCH (11:36)
[2017-03-19 15:01] VITALS: BP 126/80; PULSE 65; TEMP 36.6; O2SAT 95
--- NOTE | 2017-03-19 16:57 | Progress Note ---
Medicine Progress Note Date & Time of Visit: Mar 19, 2017 at 16:57. Objective Last 8 Hrs Date Time Temp Pulse Resp B/P (MAP) Pulse Ox O2 Delivery O2 Flow Rate FiO2 03/19/17 15:28 Room Air 03/19/17 15:01 36.6 65 18 126/80 (95) 95 Room Air 03/19/17 11:08 Room Air 03/19/17 11:02 36.5 71 18 137/70 (92) 98 Room Air Physical Exam: General- no distress Neck- no JVD Lungs-clear Heart- RRR, no gallop Abdomen- + BS, soft, nontender Extremities- no pretibial edema or calf tenderness Neuro- alert . Laboratory Results: Last 24 Hours Test 03/19/17 05:33 White Blood Count 4.17 K/uL Red Blood Count 3.34 M/uL Hemoglobin 9.3 g/dL Hematocrit 29.0 % Mean Corpuscular Volume 86.8 fL Mean Corpuscular Hemoglobin 27.8 pg Mean Corpuscular Hemoglobin Concent 32.1 g/dl RDW Standard Deviation 51.0 fL RDW Coefficient of Variation 16.1 % Platelet Count 40 K/uL Mean Platelet Volume 10.6 fL Sodium Level 140 mmol/L Potassium Level 3.7 mmol/L Chloride Level 105 mmol/L Carbon Dioxide Level 27 mmol/L Anion Gap 8.0 mmol/L Blood Urea Nitrogen 25 mg/dl Creatinine 1.65 mg/dl Est Creatinine Clear Calc Drug Dose 34.5 ml/min Estimated GFR () 44.8 Estimated GFR (Non- 38.6 BUN/Creatinine Ratio 15.2 Random Glucose 110 mg/dl Calcium Level 8.3 mg/dl Iron Level 52 mcg/dl Total Iron Binding Capacity 267 mcg/dl Transferrin 213 mg/dl Transferrin % Saturation 17 % Ferritin 84.1 ng/ml Assessment & Plan GI BLEED History of chronic 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 Also has esophageal varices and erosive gastropathy per previous EGD. Apparent melena at home. Stools black, heme + in ED. Hgb 8.8 on admission. Plts 41,000. INR & PTT normal. Hemodynamically stable. Hgb this morning 8.2. Melena resolving. Seen by GI. No need for repeat endoscopic evaluation at this time. CIRRHOSIS Attributed to nonalcoholic fatty liver disease. Associated with portal hypertension / grade II esophageal varices. Ongoing management per GI. GERD Continue PPI. CORONARY ARTERY DISEASE No anginal symptoms. No acute EKG changes. Continue carvedilol with hold parameters. PAROXYSMAL ATRIAL FIBRILLATION Currently in sinus rhythm. Continue carvedilol with hold parameters. No anticoagulation due to chronic GI blood loss. HYPERTENSION BP's stable. Continue amlodipine and carvedilol. Follow and titrate Rx. CKD III Serum creatinine 1.36, compared to recent baseline of 1.3 - 1.9. Follow. HYPOTHYROIDISM Continue levothyroxine. ANEMIA Multifactorial- acute + chronic blood loss, anemia of chronic disease. THROMBOCYTOPENIA Due to cirrhosis. VTE PROPHYLAXIS No anticoagulants due to GI bleed. SCD's. Ambulate as able. DISPOSITION Expected discharge to home. Internal Medicine follow-up with Dr. Al. Daughter given update by phone. . Current Inpatient Medications: Current Inpatient Medications Medications (Trade) Dose Ordered Sig/Med Route Start Time Stop Time Status Last Admin Dose Admin Ondansetron HCl (Zofran Inj) 4 mg Q6H PRN IV 03/17/17 17:30 04/16/17 17:29 Allopurinol (Zyloprim Tab) 100 mg DAILY PO 03/18/17 09:00 04/17/17 08:59 03/19/17 08:28 100 MG Amlodipine Besylate (Norvasc Tab) 2.5 mg BID PO 03/17/17 21:00 04/16/17 20:59 03/19/17 08:29 2.5 MG Atorvastatin Calcium (Lipitor Tab) 40 mg HS PO 03/17/17 21:00 04/16/17 20:59 03/18/17 19:57 40 MG Calcium Carbonate (Tums Chew Tab) 1,000 mg HS PO 03/17/17 21:00 04/16/17 20:59 03/18/17 19:54 1,000 MG Carvedilol (Coreg Tab) 12.5 mg BID@1200,2100 PO 03/17/17 21:00 04/16/17 20:59 03/19/17 11:36 12.5 MG Furosemide (Lasix Tab) 20 mg Q2D PO 03/18/17 09:00 04/17/17 08:59 03/18/17 10:07 20 MG Acetaminophen/ Hydrocodone Bitart ([place] 7.5/325 Tab) 1 tab Q6H PRN PO 03/17/17 17:45 03/31/17 17:44 03/19/17 03:27 1 TAB Levothyroxine Sodium (Synthroid Tab) 75 mcg DAILYBB PO 03/17/17 06:00 04/16/17 05:59 03/19/17 06:01 75 MCG Rifaximin (Xifaxan Tab) 550 mg BID PO 03/17/17 21:00 04/16/17 20:59 03/19/17 08:28 550 MG Tamsulosin HCl (Flomax Cap) 0.4 mg HS PO 03/17/17 21:00 04/16/17 20:59 03/18/17 19:52 0.4 MG Magnesium Oxide (Mag-Ox Tab) 400 mg QPM PO 03/17/17 21:00 04/16/17 20:59 03/18/17 19:53 400 MG Potassium Chloride (Klor-Con Tab) 20 meq DAILY PO 03/18/17 09:00 04/17/17 08:59 03/19/17 08:29 20 MEQ Miscellaneous (Iv Fluids Completed) 1 ea PRN PRN N/A 03/17/17 18:45 03/17/18 18:44 Ferrous Sulfate (Feosol Tab) 325 mg BID PO 03/17/17 21:00 04/16/17 20:59 03/19/17 08:28 325 MG Pantoprazole Sodium 40 mg/ Syringe 10 ml @ 5 mls/min DAILY@,21 IV 03/18/17 21:00 04/17/17 20:59 03/19/17 08:28 5 MLS/MIN
--- NOTE | 2017-03-19 17:05 | Discharge Instructions ---
Discharge Instructions Date of Service Mar 19, 2017. Admission Reason for Admission: blood in stool, anemia . Discharge Discharge Diagnosis / Problem: blood in stool, anemia Discharge Goals Goal(s): Improve disease control Activity Recommendations Activity Limitations: resume your previous activity . Instructions / Follow-Up Instructions / Follow-Up APPOINTMENTS: PRIMARY CARE 03/24/2017 3:00 PM Pancho Bustamante MD (covering for Dr. Al) Internal Medicine [facility] HEMATOLOGY 04/01/2017 1:45 PM Skinny Boudreaux MD [facility] GASTROENTEROLOGY 04/08/2017 3:40 PM Wilma Milian MD [facility] OTHER INSTRUCTIONS: No medication changes. Seek medical attention if you have: * temperature above 101 * chest pain or trouble breathing * abdominal pain, nausea, vomiting * diarrhea, dark stools or bloody stools * any unanswered questions or concerns Call 911 if symptoms are severe. Call if you have any questions or problems. My cell # is [phone]. You can also reach a [facility] hospitalist on duty at [facility] 24 hours a day by calling [phone]. Please take good care of yourself. Zhao Can . Current Hospital Diet Patient's current hospital diet: AHA Diet (Heart Healthy) Discharge Diet Recommended Diet: AHA Diet (Heart Healthy) Pending Studies Studies pending at discharge: no Laboratory Results Last 24 Hours Test 03/19/17 05:33 White Blood Count 4.17 K/uL Red Blood Count 3.34 M/uL Hemoglobin 9.3 g/dL Hematocrit 29.0 % Mean Corpuscular Volume 86.8 fL Mean Corpuscular Hemoglobin 27.8 pg Mean Corpuscular Hemoglobin Concent 32.1 g/dl RDW Standard Deviation 51.0 fL RDW Coefficient of Variation 16.1 % Platelet Count 40 K/uL Mean Platelet Volume 10.6 fL Sodium Level 140 mmol/L Potassium Level 3.7 mmol/L Chloride Level 105 mmol/L Carbon Dioxide Level 27 mmol/L Anion Gap 8.0 mmol/L Blood Urea Nitrogen 25 mg/dl Creatinine 1.65 mg/dl Est Creatinine Clear Calc Drug Dose 34.5 ml/min Estimated GFR () 44.8 Estimated GFR (Non- 38.6 BUN/Creatinine Ratio 15.2 Random Glucose 110 mg/dl Calcium Level 8.3 mg/dl Iron Level 52 mcg/dl Total Iron Binding Capacity 267 mcg/dl Transferrin 213 mg/dl Transferrin % Saturation 17 % Ferritin 84.1 ng/ml Medical Emergencies . Who to Call and When: Medical Emergencies: If at any time you feel your situation is an emergency, please call 911 immediately. . Non-Emergent Contact Non-Emergency issues call your: Primary Care Provider, Marine Driller, Hospital Doctor . . "Provider Documentation" section prepared by Zhao Can. . VTE Core Measure Inpt VTE Proph given/why not?: SCD's, Contraindicated [place] Drug Monitoring Program Search Results: patient reviewed within database, no issues identified
[2017-03-19 17:08] VITALS: BP 126/80; PULSE 65; TEMP 36.6; O2SAT 95
== END 2017-03-19 18:00 | disposition home health service (06) | DRG 379 ==
LOC: C.EDB 14:32 → C.2T 17:28 → ENRESERV 17:39 → OBSVTOIN 19:00
PROVIDERS: ADMIT Family Medicine; ATTEND Hospitalist
DX: K92.2 Gastrointestinal hemorrhage, unspecified (principal); N40.0 Benign prostatic hyperplasia without lower urinary tract symptoms; N18.3 Chronic kidney disease, stage 3 (moderate); Z66 Do not resuscitate; E78.5 Hyperlipidemia, unspecified; K21.9 Gastro-esophageal reflux disease without esophagitis; I12.9 Hypertensive chronic kidney disease with stage 1 through stage 4 chronic kidney disease, or unspecified chronic kidney disease; E03.9 Hypothyroidism, unspecified; I48.0 Paroxysmal atrial fibrillation; D63.1 Anemia in chronic kidney disease; D69.6 Thrombocytopenia, unspecified; K74.69 Other cirrhosis of liver; I25.10 Atherosclerotic heart disease of native coronary artery without angina pectoris; Z87.891 Personal history of nicotine dependence

== ENCOUNTER 2017-04-05 16:32 | Inpatient (IN) | payer OTHER ==
[~2017-04-05] VITALS: Ht 172.7 cm; Wt 83.2 kg
[~2017-04-05 16:32] MED LIST changes: +HYDR-3983 PO; -HYDR-5688 PO
[2017-04-05] MEDS ORDERED: SODIUM CHLORIDE 0.9% 1000ML 500 ML IV STA (16:43)
--- NOTE | 2017-04-05 16:53 | EMERGENCY ROOM VISIT NOTE ---
History Report prepared by Meghan: German Rosenbaum Under the Supervision of: Dr. Edu Borges M.D. First contact with patient: 16:39 Chief Complaint: OTHER COMPLAINT Stated Complaint: AFIB LOW HEMOGLOBIN History of Present Illness The patient is an 82 year old male who presents to the Emergency Room with complaints of an episode of low hemoglobin and atrial fibrillation beginning a few days ago. Per daughter, the patient had his blood test done yesterday, where his hemoglobin level was 7.5. She notes that the patient had a doctor's appointment today and was also told that he was experiencing atrial fibrillation. She reports that the combination of both of these symptoms prompted them to come to the emergency department today. The patient also complains of constant lower back pain, for which he is on pain management, a cough, and worsening SOB. He denies any fever, vomiting, or change to his stool. Per daughter, the patient has a history of intermittent atrial fibrillation. Source of History: patient, family Onset: a few days ago Position: other (global) Symptom Intensity: Quality: other (low hemoglobin levesl and atrial fibrillation) Timing: other (an episode) Associated Symptoms: + cough, + chest pain, + SOB (worsening), No fevers, No vomiting Note: He denies any changes to his stool Review of Systems See HPI for pertinent positives & negatives. A total of 10 systems reviewed and were otherwise negative. Past Medical & Surgical Medical Problems: (1) Anemia (2) Atrial fibrillation (3) BPH (benign prostatic hypertrophy) (4) Cirrhosis (5) CKD (chronic kidney disease), stage III (6) Dyslipidemia (7) Esophageal varices (8) GERD (gastroesophageal reflux disease) (9) History of non-ST elevation myocardial infarction (NSTEMI) (10) Hypertension (11) Hypothyroidism (12) Paroxysmal atrial fibrillation (13) Thrombocytopenia Surgical Problems: (1) H/O colonoscopy (2) H/O esophagogastroduodenoscopy (3) History of esophagogastroduodenoscopy (EGD) Family History Coronary artery disease FATHER Tuberculosis MOTHER Social History Smoking Status: Former Smoker Alcohol Use: none Drug Use: none Marital Status: Housing Status: detention Occupation Status: retired Current/Historical Medications Scheduled Allopurinol (Zyloprim), 100 MG PO DAILY Amlodipine (Norvasc), 2.5 MG PO DAILY Atorvastatin (Lipitor), 40 MG PO HS Calcium Carbonate (Tums), 2 TAB PO HS Carvedilol (Coreg), 12.5 MG PO BID@1200,2100 Ferrous Sulfate (Kp Ferrous Sulfate), 1 TAB PO BID Furosemide (Lasix), 20 MG PO Q2D Levothyroxine Sodium (Levothyroxine Sodium), 75 MCG PO QAM Magnesium Oxide (Mg Supplement (Magnesium Oxide), 400 TAB PO QPM Omeprazole (Prilosec), 40 MG PO DAILY Potassium Chloride (Potassium Chloride Cr), 20 MEQ PO DAILY Rifaximin (Xifaxan), 550 MG PO BID Tamsulosin Hcl (Flomax), 0.4 MG PO HS Scheduled PRN Hydrocodone/Acetaminophen 7.5MG/325MG ([place] 7.5MG/325MG), 1 TAB PO Q6H PRN for Pain Allergies Coded Allergies: Lisinopril (Verified Allergy, Unknown, UNKNOWN, 04/05/17) Physical Exam Vital Signs Date Time Temp Pulse Resp B/P (MAP) Pulse Ox O2 Delivery O2 Flow Rate FiO2 04/05/17 18:13 78 154/82 84 147/93 106 123/74 04/05/17 18:13 78 23 154/82 04/05/17 17:46 94 Room Air 04/05/17 17:35 87 04/05/17 16:36 36.4 81 20 127/71 95 Room Air Physical Exam GENERAL: Patient is in no acute distress. HEENT: No acute trauma, normocephalic atraumatic, mucous membranes moist, no nasal congestion, no scleral icterus. NECK: No stridor, no adenopathy, no meningismus, trachea is midline. LUNGS: Clear to auscultation bilaterally, no wheeze, no rhonchi, breath sounds equal. HEART: Irregular rhythm, normal rate, no murmurs. ABDOMEN: Soft, nontender, bowel sounds positive, no hernias, no peritonitis. EXTREMITIES: No cyanosis, full range of motion of all the joints without pain or difficulty, no signs for acute trauma. Mild bilateral pedal edema. NEUROLOGIC: Oriented x 3, no acute motor or sensory deficits, no focal weakness. SKIN: No rash, no jaundice, no diaphoresis. Pale. RECTAL: Dark stool, moderately heme positive. Medical Decision & Procedures ER Provider Diagnostic Interpretation: Radiology results as stated below per my review and radiologist interpretation: CHEST ONE VIEW PORTABLE FINDINGS: Cardiac silhouette is moderately enlarged, unchanged. Pulmonary vascular congestion. Opacity of the right upper mediastinum appears unchanged suggesting a possible vascular pedicle. Medial lung apices are secured by the patient's chin. There is no pneumothorax, pleural effusion, focal airspace consolidation or overt pulmonary edema. Mild subsegmental bibasilar atelectasis redemonstrated. Bones of the chest are grossly intact. IMPRESSION: Cardiomegaly without acute cardiopulmonary process. The above report was generated using voice recognition software. It may contain grammatical, syntax or spelling errors. Electronically signed by: Stanislav Caceres M.D. 04/05/2017 5:08 PM Laboratory Results 04/05/17 17:15 Red Blood Count 2.94, Mean Corpuscular Volume 91.5, Mean Corpuscular Hemoglobin 27.9, Mean Corpuscular Hemoglobin Concent 30.5, Mean Platelet Volume 10.7, Neutrophils (%) (Auto) 68.9, Lymphocytes (%) (Auto) 12.5, Monocytes (%) (Auto) 15.5, Eosinophils (%) (Auto) 2.2, Basophils (%) (Auto) 0.9, Neutrophils # (Auto ) 1.60, Lymphocytes # (Auto) 0.29, Monocytes # (Auto) 0.36, Eosinophils # (Auto ) 0.05, Basophils # (Auto) 0.02 04/05/17 17:15 Test 04/05/17 17:15 White Blood Count 2.32 K/uL (4.8-10.8) Red Blood Count 2.94 M/uL (4.7-6.1) Hemoglobin 8.2 g/dL (14.0-18.0) Hematocrit 26.9 % (42-52) Mean Corpuscular Volume 91.5 fL (80-100) Mean Corpuscular Hemoglobin 27.9 pg (25-34) Mean Corpuscular Hemoglobin Concent 30.5 g/dl (32-36) Platelet Count 43 K/uL (130-400) Mean Platelet Volume 10.7 fL (7.4-10.4) Neutrophils (%) (Auto) 68.9 % Lymphocytes (%) (Auto) 12.5 % Monocytes (%) (Auto) 15.5 % Eosinophils (%) (Auto) 2.2 % Basophils (%) (Auto) 0.9 % Neutrophils # (Auto) 1.60 K/uL (1.4-6.5) Lymphocytes # (Auto) 0.29 K/uL (1.2-3.4) Monocytes # (Auto) 0.36 K/uL (0.11-0.59) Eosinophils # (Auto) 0.05 K/uL (0-0.5) Basophils # (Auto) 0.02 K/uL (0-0.2) RDW Standard Deviation 61.8 fL (36.4-46.3) RDW Coefficient of Variation 18.4 % (11.5-14.5) Immature Granulocyte % (Auto) 0.0 % Immature Granulocyte # (Auto) 0.00 K/uL (0.00-0.02) Anisocytosis PRESENT Prothrombin Time 12.5 SECONDS (9.0-12.0) Prothromb Time International Ratio 1.2 (0.9-1.1) Activated Partial Thromboplast Time 31.2 SECONDS (21.0-31.0) Partial Thromboplastin Ratio 1.2 Anion Gap 5.0 mmol/L (3-11) Est Creatinine Clear Calc Drug Dose 38.9 ml/min Estimated GFR () 46.8 Estimated GFR (Non- 40.4 BUN/Creatinine Ratio 12.4 (10-20) Calcium Level 8.3 mg/dl (8.5-10.1) Magnesium Level 1.8 mg/dl (1.8-2.4) Total Bilirubin 1.2 mg/dl (0.2-1) Aspartate Amino Transf (AST/SGOT) 50 U/L (15-37) Alanine Aminotransferase (ALT/SGPT) 25 U/L (12-78) Alkaline Phosphatase 127 U/L (45-117) Troponin I < 0.015 ng/ml (0-0.045) Total Protein 7.3 gm/dl (6.4-8.2) Albumin 3.3 gm/dl (3.4-5.0) Globulin 4.0 gm/dl (2.5-4.0) Albumin/Globulin Ratio 0.8 (0.9-2) Lipase 69 U/L (73-393) Thyroid Stimulating Hormone (TSH) 4.770 uIu/ml (0.300-4.500) Free Thyroxine 1.16 ng/dl (0.80-1.60) Laboratory results reviewed by me. Medications Administered Medications (Trade) Dose Ordered Sig/Med Route Start Time Stop Time Status Last Admin Dose Admin Sodium Chloride 500 ml @ 999 mls/hr Q31M STAT IV 04/05/17 16:43 04/05/17 17:13 DC 04/05/17 17:49 999 MLS/HR ECG Indication: other (atrial fibrillation) Rate (beats per minute): 80 Rhythm: atrial fibrillation Findings: no acute ischemic change, no ectopy ED Course 1640: The patient was evaluated in room C11. A complete history and physical exam was performed. 1643: Sodium Chloride 500 ml @ 999 mls/hr IV 181: The patient's orthostatic vital signs are positive, heart rate increased with standing. 181: I reevaluated and updated the patient and his daughter. 182: Upon reexamination the patient is stable. I discussed results and treatment plan with the patient. He verbalizes agreement and understanding. I spoke with Dr. Hanley - HospitalistDevin. We discussed the patient's results and findings. The patient will be evaluated for further management. 1843: Hydrocodone Bitart/Acetaminophen 1 tab PO Medical Decision Differential diagnoses include: A fib / A flutter, SVT, [place], thyroid disorder, anemia, GI bleed, electrolyte imbalance, infection, and pneumonia. The patient has a pancytopenia, this is typical for him. Hemoglobin is 8.2-his value was over 9 a few weeks ago. Renal panel testing suggests some dehydration /renal insufficiency. No significant electrolyte abnormality requiring correction. There were a few very subtle liver enzyme elevations. No concerning coagulopathy. Thyroid testing suggests the use of thyroid medication. EKG shows A. fib which is rate controlled, no acute ischemia. Chest film does not show pneumonia or CHF. Cardiac enzyme testing times one and is not consistent with acute cardiac injury. Orthostatic vital signs are positive. The patient received IV saline for hydration. He was given an oral [place] for his back pain-he takes this chronically. The patient presents with some shortness of breath and weakness. He does have heme positive stool, his hemoglobin has dropped since his last hospital stay, he is now in atrial fibrillation and does seem orthostatic. I think all of these findings have led to his complaints. I suspect his hemoglobin will drop below 8 once he is properly hydrated. I talked to the patient and case management. The on-call hospitalist was consulted. Medication Reconcilliation Current Medication List: was personally reviewed by me Blood Pressure Screening Patient's blood pressure: Elevated blood pressure Blood pressure disposition: Elevated BP felt to be situational Consults Time Called: 1823 Consulting Physician: Dr. Hanley - Devin Bingham Returned Call: [phone] Discussed the patient's case. The patient will be evaluated for further management. Impression Primary Impression: SOB (shortness of breath) Additional Impressions: Weakness Anemia Atrial fibrillation Dehydration Heme positive stool Scribe Attestation The scribe's documentation has been prepared under my direction and personally reviewed by me in its entirety. I confirm that the note above accurately reflects all work, treatment, procedures, and medical decision making performed by me. Departure Information Dispostion Being Evaluated By Hospitalist Referrals No Doctor, Assigned (PCP) Patient Instructions My [facility] Problem Qualifiers
--- NOTE | 2017-04-05 17:09 | DIAGNOSTIC IMAGING REPORT ---
CHEST ONE VIEW PORTABLE HISTORY: 82 years-old Male EVALUATE GI BLEED acute gastrointestinal hemorrhage. COMPARISON: Chest radiograph 03/17/2017 TECHNIQUE: Portable AP view of the chest FINDINGS: Cardiac silhouette is moderately enlarged, unchanged. Pulmonary vascular congestion. Opacity of the right upper mediastinum appears unchanged suggesting a possible vascular pedicle. Medial lung apices are secured by the patient's chin. There is no pneumothorax, pleural effusion, focal airspace consolidation or overt pulmonary edema. Mild subsegmental bibasilar atelectasis redemonstrated. Bones of the chest are grossly intact. IMPRESSION: Cardiomegaly without acute cardiopulmonary process. The above report was generated using voice recognition software. It may contain grammatical, syntax or spelling errors. Electronically signed by: Stanislav Caceres M.D. 04/05/2017 5:08 PM Dictated Date/Time: 04/05/2017 5:06 PM
[2017-04-05 17:36] LABS: HEMATOCRIT 26.9 % (42-52); MEAN CELL VOLUME 91.5 fL (80-100); MEAN CORPUSCULAR HEMOGLOBIN 27.9 pg (25-34); MEAN CORPUSCULAR HGB CONC 30.5 g/dl (32-36); RED BLOOD COUNT 2.94 M/uL (4.7-6.1); WHITE BLOOD COUNT 2.32 K/uL (4.8-10.8)
[2017-04-05 17:43] LABS: INR 1.2 (0.9-1.1); PARTIAL THROMBOPLASTIN RATIO 1.2; PROTHROMBIN TIME (PATIENT) 12.5 SECONDS (9.0-12.0)
[2017-04-05 17:44] LABS: MEAN PLATELET VOLUME 10.7 fL (7.4-10.4); PLATELET COUNT 43 K/uL (130-400)
[2017-04-05 17:55] LABS: ANISOCYTOSIS PRESENT; BASO % 0.9 %; BASO ABS # 0.02 K/uL (0-0.2); COMPLETE YES; EOS % 2.2 %; LYMPH % 12.5 %; LYMPH ABS # 0.29 K/uL (1.2-3.4); MONO % 15.5 %; NEUT % 68.9 %
[2017-04-05 17:56] LABS: ALT/SGPT 25 U/L (12-78); AST/SGOT 50 U/L (15-37); BLOOD UREA NITROGEN 20 mg/dl (7-18); BUN/CREATININE RATIO 12.4 (10-20); CALCIUM 8.3 mg/dl (8.5-10.1); CARBON DIOXIDE 24 mmol/L (21-32); CHLORIDE 105 mmol/L (98-107); CREATININE 1.59 mg/dl (0.60-1.40); GLUCOSE 86 mg/dl (70-99); MAGNESIUM 1.8 mg/dl (1.8-2.4); POTASSIUM 4.4 mmol/L (3.5-5.1); SODIUM 134 mmol/L (136-145)
[2017-04-05 18:05] LABS: ALB/GLOB RATIO 0.8 (0.9-2); ALKALINE PHOSPHATASE 127 U/L (45-117)
[2017-04-05] MEDS ORDERED: HYDROCODONE/ACETAMINOPHEN 7.5/325MG TAB PO STA (18:43)
[2017-04-05] MEDS ORDERED: HYDR-5688 PO ×2 (20:23)
[2017-04-05] MEDS ORDERED: POTA-65 PO (20:26)
[2017-04-05] MEDS ORDERED: ONDANSETRON INJ 2 MG/ML 2 ML VIAL IV PRN (20:30)
[2017-04-05] MEDS ORDERED: POLYETHYLENE (MIRALAX) 17 GM PACK PO PRN (20:45)
[2017-04-05] MEDS ORDERED: SODIUM CHLORIDE 0.9% 500ML 500 ML IV SCH (20:45)
[2017-04-05 20:46] VITALS: BP 151/75; PULSE 92; TEMP 36.3; O2SAT 96; Ht 172.7 cm; Wt 83.2 kg
--- NOTE | 2017-04-05 20:52 | History and Physical ---
History & Physical Date & Time of Service: Apr 05, 2017 at 20:27 Chief Complaint: Afib Low Hemoglobin Primary Care Physician: Marilynn Al D.O. History of Present Illness Source: patient, family, clinic records, hospital records 82 yoM with chronic GI bleeding from presumed AVM presents on recommendation from PCP office to go to ER as Hb fell somewhat. Atrial fibrillation was also noted in the clinic which is paroxysmal for him. He was said to initially be feeling poorly, however, in speaking with him he says he actually feels great and denies any SOB, palpitations, chest pain or other symptom at this time. He does have some chronic back pain and reports that he is just getting over a cold he has had for the past 2-3 days he contracted from his daughter. He reports a dry cough that is not persistent as a symptom and denies sore throat, fevers, chills. He also denies any blood per rectum and states that on his last admission, which was also for concerns regarding a drop in Hb, he was having more black tarry stools, he denies having any of that now. He denies any lightheadedness with standing but was orthostatic positive in the ER tonight. He was given some IVF for this. His stool was not black but was heme positive per ER physician. Regarding cirrhosis he denies any abdominal pain or swelling and only has chronic trace swelling around his ankles, no recent weight gain. He ambulates with a walker at baseline and lives alone. Daughter is at bedside with him. 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 Status: Chronic (4) CKD (chronic kidney disease), stage III Status: Chronic (5) Dyslipidemia Status: Chronic (6) Esophageal varices Permanent Comment: Mar 2015- small varices, mild erosive antral gastritis Status: Chronic (7) GERD (gastroesophageal reflux disease) Status: Chronic (8) History of non-ST elevation myocardial infarction (NSTEMI) Permanent Comment: in October 2010 secondary to severe anemia Status: Chronic (9) Hypertension Status: Chronic (10) Hypothyroidism Status: Chronic (11) Paroxysmal atrial fibrillation Status: Chronic (12) Thrombocytopenia Status: Chronic Surgical Problems: (1) H/O colonoscopy Permanent Comment: 2010- adenomatous polyps; 11/2016- polyp, AVM's treated with thermal therapy and clipped, diverticulosis, hemorrhoids Status: Chronic (2) H/O esophagogastroduodenoscopy Permanent Comment: Mar 2015- small varices, mild erosive antral gastritis Status: Chronic Family History Coronary artery disease FATHER Tuberculosis MOTHER Social History Smoking Status: Former Smoker Smokeless Tobacco Use: No Alcohol Use: none Drug Use: none Marital Status: Housing status: lives alone Occupational Status: retired Immunizations History of Influenza Vaccine: Yes Influenza Vaccine Date: Mar 24, 2017 History of Tetanus Vaccine?: Unknown History of Pneumococcal: Yes Pneumococcal Date: Jul 25, 2015 History of Hepatitis B Vaccine: No Multi-Drug Resistant Organisms History of MDRO: No Allergies Coded Allergies: Lisinopril (Verified Allergy, Unknown, UNKNOWN, 04/05/17) Home Medications Scheduled Allopurinol (Zyloprim), 100 MG PO DAILY Amlodipine (Norvasc), 2.5 MG PO DAILY Atorvastatin (Lipitor), 40 MG PO HS Calcium Carbonate (Tums), 2 TAB PO HS Carvedilol (Coreg), 12.5 MG PO BID@1200,2100 Ferrous Sulfate (Kp Ferrous Sulfate), 1 TAB PO BID Furosemide (Lasix), 20 MG PO Q2D Hydrocodone/Acetaminophen 5MG/325MG ([place] 5MG/325MG), 1 TAB PO TID Levothyroxine Sodium (Levothyroxine Sodium), 75 MCG PO QAM Magnesium Oxide (Mg Supplement (Magnesium Oxide), 400 TAB PO QPM Omeprazole (Prilosec), 40 MG PO DAILY Potassium Chloride (Potassium Chloride ER), 20 MEQ PO DAILY Rifaximin (Xifaxan), 550 MG PO BID Tamsulosin Hcl (Flomax), 0.4 MG PO HS Scheduled PRN Hydrocodone/Acetaminophen 5MG/325MG ([place] 5MG/325MG), 1 TABLET PO Q6H PRN for breakthrough pain Review of Systems At least ten systems were reviewed and negative except as indicated in HPi above. Physical Exam Vital Signs Date Time Temp Pulse Resp B/P (MAP) Pulse Ox O2 Delivery O2 Flow Rate FiO2 04/05/17 20:03 80 18 148/79 97 04/05/17 19:13 79 18 150/69 92 Room Air 04/05/17 18:13 78 154/82 84 147/93 106 123/74 04/05/17 18:13 78 23 154/82 04/05/17 17:46 94 Room Air 04/05/17 17:35 87 04/05/17 16:36 36.4 81 20 127/71 95 Room Air General Appearance: WD/WN, no apparent distress Head: normocephalic, atraumatic Eyes: normal inspection, PERRL, sclerae normal ENT: hearing grossly normal, pharynx normal Neck: supple, no JVD, trachea midline Respiratory/Chest: lungs clear, normal breath sounds, no respiratory distress, no accessory muscle use Cardiovascular: regular rate, rhythm, no edema, no gallop, no murmur, normal peripheral pulses Abdomen/GI: normal bowel sounds, non tender, soft Back: normal inspection Extremities/Musculoskelatal: normal inspection, normal range of motion Neurologic/Psych: chart clerk II-XII nml as tested, no motor/sensory deficits, alert, normal mood/affect, oriented x 3 Skin: normal color, warm/dry, no rash Diagnostics Laboratory Results 04/05/17 17:15 Red Blood Count 2.94, Mean Corpuscular Volume 91.5, Mean Corpuscular Hemoglobin 27.9, Mean Corpuscular Hemoglobin Concent 30.5, Mean Platelet Volume 10.7, Neutrophils (%) (Auto) 68.9, Lymphocytes (%) (Auto) 12.5, Monocytes (%) (Auto) 15.5, Eosinophils (%) (Auto) 2.2, Basophils (%) (Auto) 0.9, Neutrophils # (Auto ) 1.60, Lymphocytes # (Auto) 0.29, Monocytes # (Auto) 0.36, Eosinophils # (Auto ) 0.05, Basophils # (Auto) 0.02 04/05/17 17:15 Test 04/05/17 17:15 White Blood Count 2.32 K/uL (4.8-10.8) Red Blood Count 2.94 M/uL (4.7-6.1) Hemoglobin 8.2 g/dL (14.0-18.0) Hematocrit 26.9 % (42-52) Mean Corpuscular Volume 91.5 fL (80-100) Mean Corpuscular Hemoglobin 27.9 pg (25-34) Mean Corpuscular Hemoglobin Concent 30.5 g/dl (32-36) Platelet Count 43 K/uL (130-400) Mean Platelet Volume 10.7 fL (7.4-10.4) Neutrophils (%) (Auto) 68.9 % Lymphocytes (%) (Auto) 12.5 % Monocytes (%) (Auto) 15.5 % Eosinophils (%) (Auto) 2.2 % Basophils (%) (Auto) 0.9 % Neutrophils # (Auto) 1.60 K/uL (1.4-6.5) Lymphocytes # (Auto) 0.29 K/uL (1.2-3.4) Monocytes # (Auto) 0.36 K/uL (0.11-0.59) Eosinophils # (Auto) 0.05 K/uL (0-0.5) Basophils # (Auto) 0.02 K/uL (0-0.2) RDW Standard Deviation 61.8 fL (36.4-46.3) RDW Coefficient of Variation 18.4 % (11.5-14.5) Immature Granulocyte % (Auto) 0.0 % Immature Granulocyte # (Auto) 0.00 K/uL (0.00-0.02) Anisocytosis PRESENT Prothrombin Time 12.5 SECONDS (9.0-12.0) Prothromb Time International Ratio 1.2 (0.9-1.1) Activated Partial Thromboplast Time 31.2 SECONDS (21.0-31.0) Partial Thromboplastin Ratio 1.2 Anion Gap 5.0 mmol/L (3-11) Est Creatinine Clear Calc Drug Dose 38.9 ml/min Estimated GFR () 46.8 Estimated GFR (Non- 40.4 BUN/Creatinine Ratio 12.4 (10-20) Calcium Level 8.3 mg/dl (8.5-10.1) Magnesium Level 1.8 mg/dl (1.8-2.4) Total Bilirubin 1.2 mg/dl (0.2-1) Aspartate Amino Transf (AST/SGOT) 50 U/L (15-37) Alanine Aminotransferase (ALT/SGPT) 25 U/L (12-78) Alkaline Phosphatase 127 U/L (45-117) Troponin I < 0.015 ng/ml (0-0.045) Total Protein 7.3 gm/dl (6.4-8.2) Albumin 3.3 gm/dl (3.4-5.0) Globulin 4.0 gm/dl (2.5-4.0) Albumin/Globulin Ratio 0.8 (0.9-2) Lipase 69 U/L (73-393) Thyroid Stimulating Hormone (TSH) 4.770 uIu/ml (0.300-4.500) Free Thyroxine 1.16 ng/dl (0.80-1.60) Results Past 24 Hours Test 04/05/17 17:15 Range/Units White Blood Count 2.32 4.8-10.8 K/uL Red Blood Count 2.94 4.7-6.1 M/uL Hemoglobin 8.2 14.0-18.0 g/dL Hematocrit 26.9 42-52 % Mean Corpuscular Volume 91.5 80-100 fL Mean Corpuscular Hemoglobin 27.9 25-34 pg Mean Corpuscular Hemoglobin Concent 30.5 32-36 g/dl Platelet Count 43 130-400 K/uL Mean Platelet Volume 10.7 7.4-10.4 fL Neutrophils (%) (Auto) 68.9 % Lymphocytes (%) (Auto) 12.5 % Monocytes (%) (Auto) 15.5 % Eosinophils (%) (Auto) 2.2 % Basophils (%) (Auto) 0.9 % Neutrophils # (Auto) 1.60 1.4-6.5 K/uL Lymphocytes # (Auto) 0.29 1.2-3.4 K/uL Monocytes # (Auto) 0.36 0.11-0.59 K/uL Eosinophils # (Auto) 0.05 0-0.5 K/uL Basophils # (Auto) 0.02 0-0.2 K/uL RDW Standard Deviation 61.8 36.4-46.3 fL RDW Coefficient of Variation 18.4 11.5-14.5 % Immature Granulocyte % (Auto) 0.0 % Immature Granulocyte # (Auto) 0.00 0.00-0.02 K/uL Anisocytosis PRESENT Prothrombin Time 12.5 9.0-12.0 SECONDS Prothromb Time International Ratio 1.2 0.9-1.1 Activated Partial Thromboplast Time 31.2 21.0-31.0 SECONDS Partial Thromboplastin Ratio 1.2 Sodium Level 134 136-145 mmol/L Potassium Level 4.4 3.5-5.1 mmol/L Chloride Level 105 98-107 mmol/L Carbon Dioxide Level 24 21-32 mmol/L Anion Gap 5.0 3-11 mmol/L Blood Urea Nitrogen 20 7-18 mg/dl Creatinine 1.59 0.60-1.40 mg/dl Est Creatinine Clear Calc Drug Dose 38.9 ml/min Estimated GFR () 46.8 Estimated GFR (Non- 40.4 BUN/Creatinine Ratio 12.4 10-20 Random Glucose 86 70-99 mg/dl Calcium Level 8.3 8.5-10.1 mg/dl Magnesium Level 1.8 1.8-2.4 mg/dl Total Bilirubin 1.2 0.2-1 mg/dl Aspartate Amino Transf (AST/SGOT) 50 15-37 U/L Alanine Aminotransferase (ALT/SGPT) 25 12-78 U/L Alkaline Phosphatase 127 45-117 U/L Troponin I < 0.015 0-0.045 ng/ml Total Protein 7.3 6.4-8.2 gm/dl Albumin 3.3 3.4-5.0 gm/dl Globulin 4.0 2.5-4.0 gm/dl Albumin/Globulin Ratio 0.8 0.9-2 Lipase 69 73-393 U/L Thyroid Stimulating Hormone (TSH) 4.770 0.300-4.500 uIu/ml Free Thyroxine 1.16 0.80-1.60 ng/dl Diagnostic Radiology CHEST ONE VIEW PORTABLE HISTORY: 82 years-old Male EVALUATE GI BLEED acute gastrointestinal hemorrhage. COMPARISON: Chest radiograph 03/17/2017 TECHNIQUE: Portable AP view of the chest FINDINGS: Cardiac silhouette is moderately enlarged, unchanged. Pulmonary vascular congestion. Opacity of the right upper mediastinum appears unchanged suggesting a possible vascular pedicle. Medial lung apices are secured by the patient's chin. There is no pneumothorax, pleural effusion, focal airspace consolidation or overt pulmonary edema. Mild subsegmental bibasilar atelectasis redemonstrated. Bones of the chest are grossly intact. IMPRESSION: Cardiomegaly without acute cardiopulmonary process. EKG afib 80, no ST changes Impression Assessment and Plan 82 yo M with chronic GI bleeding and recent Hb loss, now orthostatic and close to transfusion threshold. 1. Chronic anemia-multiple sources of anemia including chronic disease and chronic occult bleeding from presumed AVM. Hb ws last 10.8 on 03/13/17 and dropped to 7.5 on 04/04. Today he is 8.2/27. He was given 500 mls in the ER, will give him another 500 mls now and hold his Lasix. Will repeat H/H in am and consider transfusing. Will watch for any blood per rectum. Orthostatics qshift. GI was consulted. 2. ANDRE-creat 1.6 with baseline 1.3. Holding diuretics and gave some fluids. Repeat PRP in am. 3. Cirrhosis 2/2 NAFLD-compensated. Normal mentation, asymptomatic. Chronic thrombocytopenia as a result. Cont Rifaximin BID 4. Hypothyroidism-cont synthroid at home dose 5. PAF-in atrial fib right now poss 2/2 recent URI. He is asymptomatic at this time. Anticoagulation contraindicated in setting of chronic bleeding and thrombocytopenia. Rate control with Coreg. 6. HTN-cont home meds (Norvasc 2.5 QD, Coreg 6.25 BID) 7. BPH-cont tamsulosin DVT proph-SCDs, otherwise contraindicated. DNR-discussed with patient and daughter on admission. Dispo-med/surg Jessica Hanley DO [facility] Level of Care Med/Surg Resuscitation Status DO NOT RESUSCITATE VTE Prophylaxis VTE Risk Assessment Done? Y/N: Yes Risk Level: Moderate Given or contraindicated: SCD's, Contraindicated
[2017-04-05] MEDS: HYDROCODONE/ACETAMOPHEN 5/325MG TAB PO SCH (21:00)
[2017-04-05 21:09] VITALS: BP_SYST 136; BP_SYST 142; BP_SYST 159; BP_DIAS 67; BP_DIAS 69; BP_DIAS 76; PULSE 80; PULSE 92; PULSE 93
[2017-04-05] MEDS: RIFAXIMIN TAB 550 MG TAB PO SCH (21:17)
[2017-04-05] MEDS: PANTOprazole INJ 40 MG in SYRINGE 0 ML IV SCH (21:17)
[2017-04-05] MEDS: MAGNESIUM OXIDE 400 MG TAB PO SCH (21:17)
[2017-04-05] MEDS: TAMSULOSIN HCL 0.4 MG CAP PO SCH (21:17)
[2017-04-05] MEDS: CALCIUM CARBONATE 500 MG CHEWABLE PO SCH (21:17)
[2017-04-05] MEDS: CARVEDILOL 12.5 MG TAB PO SCH (21:18)
[2017-04-05] MEDS: ATORVASTATIN 40 MG TAB PO SCH (21:18)
[2017-04-05 22:22] VITALS: BP 138/78; PULSE 80; TEMP 37.5; O2SAT 90
[2017-04-06] VITALS (11 sets, daily range): BP systolic 129–156; BP diastolic 65–86; PULSE 51–87; TEMP 36.4–37; O2SAT 90–96
[2017-04-06] MEDS: HYDROCODONE/ACETAMOPHEN 5/325MG TAB PO PRN ×2 (00:29→07:22)
[2017-04-06] MEDS: LEVOTHYROXINE 75 MCG TAB PO SCH (05:59)
[2017-04-06 09:53] LABS: CALCIUM 8.1 mg/dl (8.5-10.1); CREATININE 1.52 mg/dl (0.60-1.40); MAGNESIUM 1.8 mg/dl (1.8-2.4)
[2017-04-06] MEDS: RIFAXIMIN TAB 550 MG TAB PO SCH ×2 (10:20→21:11)
[2017-04-06] MEDS: AMLODIPINE BESYLATE 5 MG TAB PO SCH (10:20)
[2017-04-06] MEDS: POTASSIUM CHLORIDE 20 MEQ TABCR PO SCH (10:20)
[2017-04-06] MEDS: ALLOPURINOL 100 MG TAB PO SCH (10:20)
[2017-04-06] MEDS: FERROUS SULFATE 325 MG TAB PO SCH (10:20)
[2017-04-06] MEDS: PANTOprazole INJ 40 MG in SYRINGE 0 ML IV SCH (10:21)
--- NOTE | 2017-04-06 12:22 | Gastrointestinal Consultation ---
Gastrointestinal Consultation Date of Consultation: Apr 06, 2017 Attending Physician: Christina Cisneros M.D Consulting Physician: Manoj Zaidi M.D Reason for Consultation: Anemia History of Present Illness This 82 year old male with medical comorbids of NAFLD Cirrhosis (MELD=12), A-fib , Chronic anemia, CKD, chronic thrombocytopenia, HTN, CAD, hypothyroidism, chronic back pain, sent to ED from PMDs office for A-Fib and low Hgb. The patient was admitted 2 weeks ago to the hospital with dark stool but no overt GI bleed, he was seen by GI and planned for elective endoscopic work up. 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 This time he denies any hematemesis ior melena and his stool is light brown. He actually feels fine and denies any symptoms. He denies nausea, vomiting, diarrhea or constipation, no rectal bleeding, fever or jaundice. Past Medical/Surgical History Medical Problems: (1) Abdominal pain Status: Acute (2) Abnormal CT of the head Status: Acute (3) Acute renal failure Status: Acute (4) Anemia Status: Chronic (5) Dehydration Status: Acute (6) Fall Status: Acute (7) GI bleed Status: Acute (8) Heme positive stool Status: Acute (9) Low back pain Status: Acute (10) Lumbar compression fracture Status: Acute (11) Pancytopenia Status: Acute (12) Severe anemia Status: Acute (13) SOB (shortness of breath) Status: Acute (14) Umbilical hernia Status: Acute (15) Upper GI bleed Status: Acute (16) Weakness Status: Acute (17) Weakness Status: Acute (18) Weakness Status: Acute Past Medical History: As stated above. Past Surgical History: None Family History Coronary artery disease FATHER Tuberculosis MOTHER Social History Smoking Status: Former Smoker Alcohol Use: none Drug Use: none Marital Status: Housing Status: shelter Occupation Status: retired Allergies Coded Allergies: Lisinopril (Verified Allergy, Unknown, UNKNOWN, 04/05/17) Current Medications Home Meds and Scripts Medications Dose Route/Sig Max Daily Dose Days Date Category Dose Instructions Potassium Chloride ER (Potassium Chloride) 20 Meq Tab 20 Meq PO DAILY 04/05/17 Reported [place] 5MG/325MG (Acetaminophen/Hydrocodone Bitart) Tab 1 Tablet PO Q6H PRN 04/05/17 Reported [place] 5MG/325MG (Acetaminophen/Hydrocodone Bitart) Tab 1 Tab PO TID 04/05/17 Reported Tums (Calcium Carbonate) 500 Mg Chew 2 Tab PO HS 01/29/17 Reported Lasix (Furosemide) 20 Mg Tab 20 Mg PO Q2D 90 01/29/17 Reported Prilosec (Omeprazole) 20 Mg Capcr 40 Mg PO DAILY 01/29/17 Reported Norvasc (Amlodipine Besylate) 2.5 Mg Tab 2.5 Mg PO DAILY 01/29/17 Reported Xifaxan (Rifaximin) 550 Mg Tab 550 Mg PO BID 30 10/03/16 Rx Levothyroxine Sodium 75 Mcg Tab 75 Mcg PO QAM 90 07/11/16 Reported Kp Ferrous Sulfate (Ferrous Sulfate) 325 Mg Tab 1 Tab PO BID 30 07/11/16 Reported Coreg (Carvedilol) 25 Mg Tab 12.5 Mg PO BID@1200,2100 11/22/15 Reported NOON & EVENING Lipitor (Atorvastatin Calcium) 80 Mg Tab 40 Mg PO HS 11/22/15 Reported Flomax (Tamsulosin Hcl) 0.4 Mg Cap 0.4 Mg PO HS 11/22/15 Reported Zyloprim (Allopurinol) 100 Mg Tab 100 Mg PO DAILY 11/22/15 Reported Magnesium Oxide (Magnesium Oxide (Mg Supplement) 400 Mg Tab 400 Tab PO QPM 11/22/15 Reported Review of Systems Constitutional: No fever, No chills Eyes: No worsening of vision, No eye pain ENT: No hearing loss, No unusual epistaxis Respiratory: No cough, No sputum Cardiac: + palpitations, No chest pain, No orthopnea Abdomen: No pain, No nausea, No vomiting, No diarrhea, No GI bleeding Male : No dysuria, No urinary frequency Neuro: No paralysis, No weakness Endo: No fatigue Skin: No rash, No itch Physical Exam Date Time Temp Pulse Resp B/P (MAP) Pulse Ox O2 Delivery O2 Flow Rate FiO2 04/06/17 11:03 96 Room Air 04/06/17 07:25 36.4 74 20 151/80 (103) 95 Room Air 04/06/17 05:02 36.6 87 18 150/81 (104) 93 Room Air 04/06/17 00:15 96 Room Air 12/2/17 22:22 37.5 80 19 138/78 (98) 90 Room Air 04/05/17 21:09 80 159/69 (99) 92 136/76 (96) 93 142/67 (92) 04/05/17 20:46 36.3 92 20 151/75 96 Room Air 04/05/17 20:03 80 18 148/79 97 04/05/17 19:13 79 18 150/69 92 Room Air 04/05/17 18:13 78 154/82 84 147/93 106 123/74 04/05/17 18:13 78 23 154/82 04/05/17 17:46 94 Room Air 04/05/17 17:35 87 04/05/17 16:36 36.4 81 20 127/71 95 Room Air General Appearance: WD/WN, no apparent distress Eyes: PERRL ENT: normal ENT inspection Neck: supple, trachea midline Respiratory/Chest: lungs clear, normal breath sounds Cardiovascular: regular rate, rhythm, no edema Abdomen: normal bowel sounds, non tender, soft Neurologic/Psych: alert, oriented x 3 Laboratory Results Last 24 Hours Test 04/05/17 17:15 04/06/17 04:44 04/06/17 09:02 White Blood Count 2.32 K/uL Red Blood Count 2.94 M/uL Hemoglobin 8.2 g/dL Hematocrit 26.9 % Mean Corpuscular Volume 91.5 fL Mean Corpuscular Hemoglobin 27.9 pg Mean Corpuscular Hemoglobin Concent 30.5 g/dl Platelet Count 43 K/uL Mean Platelet Volume 10.7 fL Neutrophils (%) (Auto) 68.9 % Lymphocytes (%) (Auto) 12.5 % Monocytes (%) (Auto) 15.5 % Eosinophils (%) (Auto) 2.2 % Basophils (%) (Auto) 0.9 % Neutrophils # (Auto) 1.60 K/uL Lymphocytes # (Auto) 0.29 K/uL Monocytes # (Auto) 0.36 K/uL Eosinophils # (Auto) 0.05 K/uL Basophils # (Auto) 0.02 K/uL RDW Standard Deviation 61.8 fL RDW Coefficient of Variation 18.4 % Immature Granulocyte % (Auto) 0.0 % Immature Granulocyte # (Auto) 0.00 K/uL Anisocytosis PRESENT Prothrombin Time 12.5 SECONDS Prothromb Time International Ratio 1.2 Activated Partial Thromboplast Time 31.2 SECONDS Partial Thromboplastin Ratio 1.2 Sodium Level 134 mmol/L 137 mmol/L Potassium Level 4.4 mmol/L 4.0 mmol/L Chloride Level 105 mmol/L 104 mmol/L Carbon Dioxide Level 24 mmol/L 24 mmol/L Anion Gap 5.0 mmol/L 9.0 mmol/L Blood Urea Nitrogen 20 mg/dl 18 mg/dl Creatinine 1.59 mg/dl 1.52 mg/dl Est Creatinine Clear Calc Drug Dose 38.9 ml/min 40.7 ml/min Estimated GFR () 46.8 49.4 Estimated GFR (Non- 40.4 42.7 BUN/Creatinine Ratio 12.4 12.0 Random Glucose 86 mg/dl 97 mg/dl Calcium Level 8.3 mg/dl 8.1 mg/dl Magnesium Level 1.8 mg/dl 1.8 mg/dl Total Bilirubin 1.2 mg/dl Aspartate Amino Transf (AST/SGOT) 50 U/L Alanine Aminotransferase (ALT/SGPT) 25 U/L Alkaline Phosphatase 127 U/L Troponin I < 0.015 ng/ml Total Protein 7.3 gm/dl Albumin 3.3 gm/dl Globulin 4.0 gm/dl Albumin/Globulin Ratio 0.8 Lipase 69 U/L Thyroid Stimulating Hormone (TSH) 4.770 uIu/ml Free Thyroxine 1.16 ng/dl Impression Patient is a 82 year old male with Liver cirrhosis due to GALEANO, has portal HTN with prior episodes of GI bleeding, found with multiple colonic AVMs that were treated in 2016 and esophageal varices s/p Banding, last was in 09/2016. Was admitted 2 weeks ago for black stool but no drop in H/H hence was treated conservatively. Now he was sent from PMDs office for anemia with AFIB but found with stable H/H at baseline. No overt ongoing GI bleeding. His anemia is multifactorial, chronic but stable at the same level for many years and in conjunction with pancytopenia is likely related to hypersplenesim. Also he has portal hypertensive gastropathy. He does not have overt GI bleeding to suggest GI blood loss. He will need and EGD to complete the varices eradication and VCE/ repeat colonoscopy to evaluate for AVMs but this can be done electively. I explained this to the patient and he wants his endoscopic procedures to be done electively by . Plan Monitor H/H. Continue home meds. Monitor kidney function. Iron supplementation. Urgent endoscopic intervention if any evidence of overt GI bleeding, otherwise will plan electively. PO PPI. Diuretics once kidney function recovers. HCC surveillance as previously scheduled.
[2017-04-06 12:33] LABS: HEMATOCRIT 24.7 % (42-52); MEAN CELL VOLUME 91.1 fL (80-100); MEAN CORPUSCULAR HEMOGLOBIN 28.4 pg (25-34); MEAN CORPUSCULAR HGB CONC 31.2 g/dl (32-36); RED BLOOD COUNT 2.71 M/uL (4.7-6.1); WHITE BLOOD COUNT 2.32 K/uL (4.8-10.8)
[2017-04-06 12:44] LABS: MEAN PLATELET VOLUME 10.7 fL (7.4-10.4); PLATELET COUNT 44 K/uL (130-400)
[2017-04-06] MEDS: CARVEDILOL 12.5 MG TAB PO SCH ×2 (13:02→21:10)
[2017-04-06] MEDS: HYDROCODONE/ACETAMOPHEN 5/325MG TAB PO SCH ×2 (13:03→21:10)
[2017-04-06] MEDS ORDERED: IRON SUCROSE INJ 100 MG in SODIUM CHLORIDE 0.9% 100ML 100 ML IV ONE (15:30)
--- NOTE | 2017-04-06 18:41 | Progress Note ---
Internal Med Progress Note Date of Service: Apr 06, 2017. Provider Documentation: SUBJECTIVE: no episode of GI bleed, no hematemesis or melena tolerating diet well OBJECTIVE: Vital Signs-as noted below Exam: General-elderly male, no sign of distress ENT-moist oral mucosa Neck-no JVD, trachea midline Lungs-cTA Heart-regular S1/s2 Abdomen-soft Extremities-no edema Neuro-no focal deficit Lab data as noted below. ASSESSMENT & PLAN: CHRONIC ANEMIA with concern for possible GI bleed chronic occult bleeding from presumed AVM. Hb ws last 10.8 on 03/13/17 and dropped to 7.5 on 04/04. presented with HB 8.2-> 7.7 today no evidence of active GI bleed appreciate input form GI no Endoscopic procedure will be done as Pt and Daughter wants to hold of EGD which may not provide benefit in this setting ordered for IV iron infusion by GI diet ordered pt will be followed closely with GI as out pt ANDRE ON CKD STAGE 3 given IV fluids diuretics kept on hold will be resumed on discharge GALEANO CIRRHOSIS compensated. Normal mentation, asymptomatic. Cont Rifaximin BID CHRONIC THROMBOCYTOPENIA : due to above avoid antiplatelets PAROXYSMAL AFIB rate controlled with Coreg Anticoagulation contraindicated in setting of chronic bleeding and thrombocytopenia. DVT PROPHYLAXIS Scd and uziel pharmacological anticoagulation contraindicated in setting of chronic anemia and thrombocytopenia. DISPOSITION expected to be discharged home when medically stable PT/OT eval prior to discharge Vital Signs: Date Time Temp Pulse Resp B/P (MAP) Pulse Ox O2 Delivery O2 Flow Rate FiO2 04/06/17 19:24 36.8 65 18 129/70 (89) 92 Room Air 04/06/17 16:29 96 Room Air 04/06/17 15:26 37.0 68 18 129/74 (92) 94 Room Air 04/06/17 13:09 76 156/80 (105) 04/06/17 11:03 96 Room Air 04/06/17 07:25 36.4 74 20 151/80 (103) 95 Room Air 04/06/17 05:02 36.6 87 18 150/81 (104) 93 Room Air 04/06/17 00:15 96 Room Air 04/05/17 22:22 37.5 80 19 138/78 (98) 90 Room Air 04/05/17 21:09 80 159/69 (99) 92 136/76 (96) 93 142/67 (92) Lab Results: Results Past 24 Hours Test 04/06/17 09:02 04/06/17 12:17 Range/Units Sodium Level 137 136-145 mmol/L Potassium Level 4.0 3.5-5.1 mmol/L Chloride Level 104 98-107 mmol/L Carbon Dioxide Level 24 21-32 mmol/L Anion Gap 9.0 3-11 mmol/L Blood Urea Nitrogen 18 7-18 mg/dl Creatinine 1.52 0.60-1.40 mg/dl Est Creatinine Clear Calc Drug Dose 40.7 ml/min Estimated GFR () 49.4 Estimated GFR (Non- 42.7 BUN/Creatinine Ratio 12.0 10-20 Random Glucose 97 70-99 mg/dl Calcium Level 8.1 8.5-10.1 mg/dl Magnesium Level 1.8 1.8-2.4 mg/dl White Blood Count 2.32 4.8-10.8 K/uL Red Blood Count 2.71 4.7-6.1 M/uL Hemoglobin 7.7 14.0-18.0 g/dL Hematocrit 24.7 42-52 % Mean Corpuscular Volume 91.1 80-100 fL Mean Corpuscular Hemoglobin 28.4 25-34 pg Mean Corpuscular Hemoglobin Concent 31.2 32-36 g/dl RDW Standard Deviation 62.4 36.4-46.3 fL RDW Coefficient of Variation 18.8 11.5-14.5 % Platelet Count 44 130-400 K/uL Mean Platelet Volume 10.7 7.4-10.4 fL
[2017-04-06] MEDS: PANTOprazole SOD 40 MG TAB PO SCH (21:10)
[2017-04-06] MEDS: TAMSULOSIN HCL 0.4 MG CAP PO SCH (21:11)
[2017-04-06] MEDS: MAGNESIUM OXIDE 400 MG TAB PO SCH (21:11)
[2017-04-06] MEDS: ATORVASTATIN 40 MG TAB PO SCH (21:11)
[2017-04-06] MEDS: CALCIUM CARBONATE 500 MG CHEWABLE PO SCH (21:12)
[2017-04-07] VITALS: O2SAT 96
[2017-04-07] MEDS: HYDROCODONE/ACETAMOPHEN 5/325MG TAB PO PRN (00:01)
[2017-04-07] MEDS: LEVOTHYROXINE 75 MCG TAB PO SCH (06:14)
[2017-04-07 07:14] VITALS: BP 130/72; PULSE 64; TEMP 36.6; O2SAT 94
[2017-04-07 07:26] LABS: HEMATOCRIT 24.1 % (42-52); MEAN CELL VOLUME 90.9 fL (80-100); MEAN CORPUSCULAR HEMOGLOBIN 28.7 pg (25-34); MEAN CORPUSCULAR HGB CONC 31.5 g/dl (32-36); RED BLOOD COUNT 2.65 M/uL (4.7-6.1); WHITE BLOOD COUNT 1.85 K/uL (4.8-10.8)
[2017-04-07 07:51] LABS: CALCIUM 7.8 mg/dl (8.5-10.1); CREATININE 1.55 mg/dl (0.60-1.40); POTASSIUM 4.1 mmol/L (3.5-5.1)
[2017-04-07 07:56] LABS: MEAN PLATELET VOLUME 10.4 fL (7.4-10.4); PLATELET COUNT 41 K/uL (130-400)
[2017-04-07 08:11] VITALS: O2SAT 96
[2017-04-07] MEDS: ALLOPURINOL 100 MG TAB PO SCH (08:45)
[2017-04-07] MEDS: RIFAXIMIN TAB 550 MG TAB PO SCH (08:45)
[2017-04-07] MEDS: PANTOprazole SOD 40 MG TAB PO SCH (08:46)
[2017-04-07] MEDS: AMLODIPINE BESYLATE 5 MG TAB PO SCH (08:46)
[2017-04-07] MEDS: FERROUS SULFATE 325 MG TAB PO SCH (08:46)
[2017-04-07] MEDS: POTASSIUM CHLORIDE 20 MEQ TABCR PO SCH (08:46)
[2017-04-07] MEDS: HYDROCODONE/ACETAMOPHEN 5/325MG TAB PO SCH ×2 (08:47→12:42)
--- NOTE | 2017-04-07 09:30 | Gastroenterology Progress Note ---
Progress Note Date of Service: Apr 07, 2017 Subjective Pt evaluation today including: conversation w/ patient, physical exam, lab review Pt seen and evaluated, chart reviewed. No acute events overnight. No signs of GI bleed. Count stable. History of AVMs. Brown stools, no melena. Tolerated breakfast this AM. Diagnosis: GALEANO, MELD 12 Decompensations: Ascites: none HE: on Xifaxan Varices: yes, s/p banding in September Screenings: Immunizations: status unknown RUQ US: due EGD: due in 2017 Review of Systems Constitutional: No fever, No chills Respiratory: No cough, No shortness of breath Cardiac: No chest pain Abdomen: No pain, No nausea, No vomiting, No diarrhea Medications Current Inpatient Medications Medications (Trade) Dose Ordered Sig/Med Route Start Time Stop Time Status Last Admin Dose Admin Polyethylene (Miralax Powder Packet) 17 gm DAILY PRN PO 04/05/17 20:45 05/05/17 20:44 Ondansetron HCl (Zofran Inj) 4 mg Q6H PRN IV 04/05/17 20:30 05/05/17 20:29 Allopurinol (Zyloprim Tab) 100 mg DAILY PO 04/06/17 09:00 05/06/17 08:59 04/07/17 08:45 100 MG Amlodipine Besylate (Norvasc Tab) 2.5 mg DAILY PO 04/06/17 09:00 05/06/17 08:59 04/07/17 08:46 2.5 MG Atorvastatin Calcium (Lipitor Tab) 40 mg HS PO 04/05/17 21:00 05/05/17 20:59 04/06/17 21:11 40 MG Calcium Carbonate (Tums Chew Tab) 1,000 mg HS PO 04/05/17 21:00 05/05/17 20:59 04/06/17 21:12 1,000 MG Carvedilol (Coreg Tab) 12.5 mg BID@1200,2100 PO 04/05/17 21:00 05/05/17 20:59 04/06/17 21:10 12.5 MG Acetaminophen/ Hydrocodone Bitart ([place] 5/325 Tab) 1 tab TID PO 04/05/17 21:00 04/19/17 20:59 04/07/17 08:47 1 TAB Acetaminophen/ Hydrocodone Bitart ([place] 5/325 Tab) 1 tab Q6H PRN PO 04/05/17 20:30 04/19/17 20:29 04/07/17 00:01 1 TAB Levothyroxine Sodium (Synthroid Tab) 75 mcg DAILYBB PO 04/06/17 06:30 05/06/17 06:29 04/07/17 06:14 75 MCG Rifaximin (Xifaxan Tab) 550 mg BID PO 04/05/17 21:00 05/05/17 20:59 04/07/17 08:45 550 MG Tamsulosin HCl (Flomax Cap) 0.4 mg HS PO 04/05/17 21:00 05/05/17 20:59 04/06/17 21:11 0.4 MG Ferrous Sulfate (Feosol Tab) 325 mg QAM PO 04/06/17 09:00 05/06/17 08:59 04/07/17 08:46 325 MG Magnesium Oxide (Mag-Ox Tab) 400 mg HS PO 04/05/17 21:00 05/05/17 20:59 04/06/17 21:11 400 MG Potassium Chloride (Klor-Con Tab) 20 meq QAM PO 04/06/17 09:00 05/06/17 08:59 04/07/17 08:46 20 MEQ Pantoprazole Sodium (Protonix Tab) 40 mg BID PO 04/06/17 21:00 05/06/17 20:59 04/07/17 08:46 40 MG Objective Vital Signs Date Time Temp Pulse Resp B/P (MAP) Pulse Ox O2 Delivery O2 Flow Rate FiO2 04/07/17 08:11 96 Room Air 04/07/17 07:14 36.6 64 18 130/72 (91) 94 Room Air 04/07/17 00:00 96 Room Air 04/06/17 23:05 37.0 51 17 132/65 (87) 90 Room Air 04/06/17 21:09 69 155/86 (109) 04/06/17 20:00 96 Room Air 04/06/17 19:24 36.8 65 18 129/70 (89) 92 Room Air 04/06/17 16:29 96 Room Air 04/06/17 15:26 37.0 68 18 129/74 (92) 94 Room Air 04/06/17 13:09 76 156/80 (105) 04/06/17 11:03 96 Room Air Physical Exam General Appearance: no apparent distress Eyes: PERRL ENT: hearing grossly normal Neck: supple Respiratory/Chest: lungs clear, normal breath sounds Cardiovascular: regular rate, rhythm Abdomen: normal bowel sounds, non tender, soft, no organomegaly Neurologic/Psych: alert, normal mood/affect, oriented x 3 Skin: normal color Laboratory Results Last 24 Hours Test 04/06/17 12:17 04/07/17 06:45 White Blood Count 2.32 K/uL 1.85 K/uL Red Blood Count 2.71 M/uL 2.65 M/uL Hemoglobin 7.7 g/dL 7.6 g/dL Hematocrit 24.7 % 24.1 % Mean Corpuscular Volume 91.1 fL 90.9 fL Mean Corpuscular Hemoglobin 28.4 pg 28.7 pg Mean Corpuscular Hemoglobin Concent 31.2 g/dl 31.5 g/dl RDW Standard Deviation 62.4 fL 61.4 fL RDW Coefficient of Variation 18.8 % 18.2 % Platelet Count 44 K/uL 41 K/uL Mean Platelet Volume 10.7 fL 10.4 fL Sodium Level 136 mmol/L Potassium Level 4.1 mmol/L Chloride Level 104 mmol/L Carbon Dioxide Level 25 mmol/L Anion Gap 7.0 mmol/L Blood Urea Nitrogen 19 mg/dl Creatinine 1.55 mg/dl Est Creatinine Clear Calc Drug Dose 40.0 ml/min Estimated GFR () 48.3 Estimated GFR (Non- 41.7 BUN/Creatinine Ratio 12.0 Random Glucose 84 mg/dl Calcium Level 7.8 mg/dl Assessment and Plan 82 year old male w/ GALEANO cirrhosis, has portal HTN with prior episodes of GI bleeding, 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 Was admitted 2 weeks ago for black stool but no drop in H/H hence was treated conservatively. Now he was sent from PCP office for anemia with AFIB but found with stable H/H at baseline. No overt ongoing GI bleeding. 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 Also he has portal hypertensive gastropathy. He does not have overt GI bleeding to suggest GI blood loss. He will need and EGD to complete the varices eradication and VCE/ repeat colonoscopy to evaluate for AVMs but this can be done electively. I explained this to the patient and he wants his endoscopic procedures to be done electively by . Monitor H/H Lasix on hold Continue other home meds Monitor kidney function Youth Counselor 04/07/17: 1.55 Youth Counselor 03/21/17: 1.65 Iron supplementation PO PPI HCC surveillance as previously scheduled Outpatient EGD/Colonoscopy +/- VCE Close outpatient GI follow up GI to sign off. No contraindication to discharge. I saw and evaluated the patient. He has a history of cirrhosis and is followed by Dr. Milian as an outpatient. He was referred to Hospital due to a low blood count which appears to be at his baseline. At this time there does not appear to be evidence of gastrointestinal bleeding as there is no evidence of melena or hematochezia or bloody emesis Recommendations Low-sodium diet Continue outpatient medications Follow-up with Dr. Milian as scheduled
[2017-04-07] MEDS: CARVEDILOL 12.5 MG TAB PO SCH (12:42)
--- NOTE | 2017-04-07 14:55 | Discharge Instructions ---
Discharge Instructions Date of Service Apr 07, 2017. Admission Reason for Admission: Symptomatic Anemia Discharge Discharge Diagnosis / Problem: CHRONIC ANEMIA /CIRRHOSIS OF LIVER Discharge Goals Goal(s): Decrease discomfort, Increase independence, Improve disease control, Therapeutic intervention Activity Recommendations Activity Limitations: as noted below ( TOLERATED ) . Instructions / Follow-Up Instructions / Follow-Up HOSPITAL FOLLOW UP 04/09/2017 2:40 PM Heber Vargas MD Internal Medicine [facility] GASTROENTEROLOGY FOLLOW UP 04/08/2017 3:40 PM Wilma Milian MD Gastroenterology, [facility] LAB WORK : COMPLETE BLOOD COUNT ON Friday04/09/17 Current Hospital Diet Patient's current hospital diet: Low Sodium Diet (2gm Na) Discharge Diet Recommended Diet: Low Sodium Diet (2gm Na) Pending Studies Studies pending at discharge: yes List of pending studies: LAB WORK : COMPLETE BLOOD COUNT ON Friday04/09/17 Medical Emergencies . Who to Call and When: Medical Emergencies: If at any time you feel your situation is an emergency, please call 911 immediately. . Non-Emergent Contact Non-Emergency issues call your: Primary Care Provider . . "Provider Documentation" section prepared by Jennifer Gallardo. . VTE Core Measure Inpt VTE Proph given/why not?: SCD's, Contraindicated
[2017-04-07 14:58] VITALS: BP 108/64; PULSE 67; TEMP 36.6; O2SAT 94
[2017-04-07 18:20] VITALS: BP 108/64; PULSE 67; TEMP 36.6; O2SAT 94
--- NOTE | 2017-04-09 16:59 | Discharge Summary ---
Discharge Summary Date of Service Apr 09, 2017. Discharge Summary Admission Date: Apr 05, 2017 at 19:22 Discharge Date: Apr 07, 2017 Discharge Disposition: Home with services Principal Diagnosis: CHRONIC ANEMIA /CIRRHOSIS OF LIVER Procedures: CHEST ONE VIEW PORTABLE HISTORY: 82 years-old Male EVALUATE GI BLEED acute gastrointestinal hemorrhage. COMPARISON: Chest radiograph 03/17/2017 TECHNIQUE: Portable AP view of the chest FINDINGS: Cardiac silhouette is moderately enlarged, unchanged. Pulmonary vascular congestion. Opacity of the right upper mediastinum appears unchanged suggesting a possible vascular pedicle. Medial lung apices are secured by the patient's chin. There is no pneumothorax, pleural effusion, focal airspace consolidation or overt pulmonary edema. Mild subsegmental bibasilar atelectasis redemonstrated. Bones of the chest are grossly intact. IMPRESSION: Cardiomegaly without acute cardiopulmonary process. Consultations: NILA GI Medication Reconciliation Continued Medications: Allopurinol (Zyloprim) 100 Mg Tab 100 MG PO DAILY, TAB Amlodipine (Norvasc) 2.5 Mg Tab 2.5 MG PO DAILY, TAB Atorvastatin (Lipitor) 80 Mg Tab 40 MG PO HS, TAB Calcium Carbonate (Tums) 500 Mg Chew 2 TAB PO HS Carvedilol (Coreg) 25 Mg Tab 12.5 MG PO BID@1200,2100, TAB NOON & EVENING Ferrous Sulfate (Kp Ferrous Sulfate) 325 Mg Tab 1 TAB PO BID for 30 Days, #60 TAB 3 Refills Furosemide (Lasix) 20 Mg Tab 20 MG PO Q2D for 90 Days, TAB 1 Refill Hydrocodone/Acetaminophen 5MG/325MG ([place] 5MG/325MG) Tab 1 TAB PO TID Hydrocodone/Acetaminophen 5MG/325MG ([place] 5MG/325MG) Tab 1 TABLET PO Q6H PRN for breakthrough pain Levothyroxine Sodium (Levothyroxine Sodium) 75 Mcg Tab 75 MCG PO QAM for 90 Days, #90 TAB 3 Refills Magnesium Oxide (Mg Supplement (Magnesium Oxide) 400 Mg Tab 400 TAB PO QPM Omeprazole (Prilosec) 20 Mg Capcr 40 MG PO DAILY, CAP Potassium Chloride (Potassium Chloride ER) 20 Meq Tab 20 MEQ PO DAILY Rifaximin (Xifaxan) 550 Mg Tab 550 MG PO BID for 30 Days, #60 TAB Tamsulosin Hcl (Flomax) 0.4 Mg Cap 0.4 MG PO HS, CAP Admission Information HPI (per Admitting provider): 82 yoM with chronic GI bleeding from presumed AVM presents on recommendation from PCP office to go to ER as Hb fell somewhat. Atrial fibrillation was also noted in the clinic which is paroxysmal for him. He was said to initially be feeling poorly, however, in speaking with him he says he actually feels great and denies any SOB, palpitations, chest pain or other symptom at this time. He does have some chronic back pain and reports that he is just getting over a cold he has had for the past 2-3 days he contracted from his daughter. He reports a dry cough that is not persistent as a symptom and denies sore throat, fevers, chills. He also denies any blood per rectum and states that on his last admission, which was also for concerns regarding a drop in Hb, he was having more black tarry stools, he denies having any of that now. He denies any lightheadedness with standing but was orthostatic positive in the ER tonight. He was given some IVF for this. His stool was not black but was heme positive per ER physician. Regarding cirrhosis he denies any abdominal pain or swelling and only has chronic trace swelling around his ankles, no recent weight gain. He ambulates with a walker at baseline and lives alone. Daughter is at bedside with him. Physical Exam (per Admitting): General Appearance: WD/WN, no apparent distress Head: normocephalic, atraumatic Eyes: normal inspection, PERRL, sclerae normal ENT: hearing grossly normal, pharynx normal Neck: supple, no JVD, trachea midline Respiratory/Chest: lungs clear, normal breath sounds, no respiratory distress, no accessory muscle use Cardiovascular: regular rate, rhythm, no edema, no gallop, no murmur, normal peripheral pulses Abdomen/GI: normal bowel sounds, non tender, soft Back: normal inspection Extremities/Musculoskelatal: normal inspection, normal range of motion Neurologic/Psych: quantitative consultant II-XII nml as tested, no motor/sensory deficits, alert , normal mood/affect, oriented x 3 Skin: normal color, warm/dry, no rash Hospital Course CHRONIC ANEMIA with concern for possible GI bleed chronic occult bleeding from presumed AVM. Hb ws last 10.8 on 03/13/17 and dropped to 7.5 on 04/04. presented with HB 8.2-> 7.7-7.6 no evidence of active GI bleed appreciate input form GI no Endoscopic procedure will be done as Pt and Daughter wants to hold of EGD which may not provide benefit in this setting given IV iron infusion by GI no further episode of GI bleed tolerating diet well improvement of weakness and POWELL stable to be discharged home today has GI appointment scheduled on 04/08/17 pt is given lab script for out pt CBC check will benefit with intermittent iv iron infusion ANDRE ON CKD STAGE 3 improved cr at baseline resume Lasix on discharge GALEANO CIRRHOSIS compensated. Normal mentation, asymptomatic. Cont Rifaximin BID CHRONIC THROMBOCYTOPENIA : due to above avoid antiplatelets PAROXYSMAL AFIB rate controlled with Coreg Anticoagulation contraindicated in setting of chronic bleeding and thrombocytopenia. DVT PROPHYLAXIS Scd and uziel pharmacological anticoagulation contraindicated in setting of chronic anemia and thrombocytopenia. DISPOSITION stable to be discharged home today daughters given update at bedside Total time spent on discharge = 35 min This includes examination of the patient, discharge planning, medication reconciliation, and communication with other providers. Discharge Instructions Discharge Instructions Date of Service Apr 07, 2017. Admission Reason for Admission: Symptomatic Anemia Discharge Discharge Diagnosis / Problem: CHRONIC ANEMIA /CIRRHOSIS OF LIVER Discharge Goals Goal(s): Decrease discomfort, Increase independence, Improve disease control, Therapeutic intervention Activity Recommendations Activity Limitations: as noted below ( TOLERATED ) . Instructions / Follow-Up Instructions / Follow-Up HOSPITAL FOLLOW UP 04/09/2017 2:40 PM Heber Vargas MD Internal Medicine [facility] GASTROENTEROLOGY FOLLOW UP 04/08/2017 3:40 PM Wilma Milian MD Gastroenterology, [facility] LAB WORK : COMPLETE BLOOD COUNT ON Friday04/09/17 Current Hospital Diet Patient's current hospital diet: Low Sodium Diet (2gm Na) Discharge Diet Recommended Diet: Low Sodium Diet (2gm Na) Pending Studies Studies pending at discharge: yes List of pending studies: LAB WORK : COMPLETE BLOOD COUNT ON Friday04/09/17 Medical Emergencies . Who to Call and When: Medical Emergencies: If at any time you feel your situation is an emergency, please call 911 immediately. . Non-Emergent Contact Non-Emergency issues call your: Primary Care Provider . . "Provider Documentation" section prepared by Jennifer Gallardo. . VTE Core Measure Inpt VTE Proph given/why not?: SCD's, Contraindicated Additional Copies To Wilma Milian M.D. Maxin, Charles W., M.D.
== END 2017-04-07 19:39 | disposition home health service (06) | DRG 378 ==
LOC: C.EDB 16:34 → C.MS2W 19:22 → ENRESERV 19:45
PROVIDERS: ADMIT Hospitalist; ATTEND Hospitalist
DX: K55.21 Angiodysplasia of colon with hemorrhage (principal); N17.9 Acute kidney failure, unspecified; D50.0 Iron deficiency anemia secondary to blood loss (chronic); D63.8 Anemia in other chronic diseases classified elsewhere; E86.0 Dehydration; I95.1 Orthostatic hypotension; D73.1 Hypersplenism; D69.59 Other secondary thrombocytopenia; I48.0 Paroxysmal atrial fibrillation; K74.60 Unspecified cirrhosis of liver; K75.81 Nonalcoholic steatohepatitis (NASH); K31.89 Other diseases of stomach and duodenum; I12.9 Hypertensive chronic kidney disease with stage 1 through stage 4 chronic kidney disease, or unspecified chronic kidney disease; N18.3 Chronic kidney disease, stage 3 (moderate); E03.9 Hypothyroidism, unspecified; N40.0 Benign prostatic hyperplasia without lower urinary tract symptoms; I25.10 Atherosclerotic heart disease of native coronary artery without angina pectoris; G89.29 Other chronic pain; M54.9 Dorsalgia, unspecified; I25.2 Old myocardial infarction; Z66 Do not resuscitate; Z87.891 Personal history of nicotine dependence; Z79.2 Long term (current) use of antibiotics; Z79.891 Long term (current) use of opiate analgesic; Z79.899 Other long term (current) drug therapy

== ENCOUNTER 2018-07-12 18:32 | Inpatient (IN) ==
[2018-07-12 19:18] LABS: Albumin Level 2.4 gm/dl (3.4-5.0); BUN Creatinine Ratio 24.2 (10-20); Calcium 7.5 mg/dl (8.5-10.1); Creatinine Clr Calc Pharmacy 27.2 ml/min; Est GFR (African American) 30.2; Est GFR (Non-African American) 26.1; Magnesium 2.1 mg/dl (1.8-2.4); Potassium 3.7 mmol/L (3.5-5.1)
--- NOTE | 2018-07-12 19:19 | XRay Report ---
XR pelvis 1-2V routine CLINICAL HISTORY: fall trauma. Pain. COMPARISON: None. DISCUSSION: The bones and joint spaces appear intact. There is no evidence of fracture, dislocation o r bony disease. There is no evidence for soft tissue swelling. IMPRESSION: Negative study. Mild degenerative change is present The above report was generated using voice recognition software. It may contain grammatical, syntax or spelling errors. Electronically signed by: Moi Eng M.D. 07/12/2018 7:17 PM
--- NOTE | 2018-07-12 19:20 | XRay Report ---
XR chest 1V portable CLINICAL HISTORY: weakness dyspnea COMPARISON STUDY: 04/05/2017 FINDINGS: Mild stable cardiomegaly. Tortuous thoracic aorta. Lungs are clear. Minimal platelike bibas ilar atelectasis. IMPRESSION: No acute process. The above report was generated using voice recognition software. It may contain grammatical, syntax or spelling errors. Electronically signed by: Moi Eng M.D. 07/12/2018 7:18 PM
[2018-07-12 19:24] LABS: INR 1.2 (0.9-1.1); Prothrombin Time 12.1 Seconds (9.0-12.0)
[2018-07-12 19:39] LABS: Hematocrit (blood only) 20.2 % (42-52); Hemoglobin 6.5 g/dL (14.0-18.0); Mean Corpuscular Hgb Conc 32.2 g/dL (32-36); Mean Corpuscular Volume 91.8 fL (80-100); Mean Platelet Volume 11.6 fL (7.4-10.4); Platelet Count 44 K/uL (130-400); RDW Coefficient of Variation 18.4 % (11.5-14.5); RDW Standard Deviation 59.8 fL (36.4-46.3); White Blood Count 5.63 K/uL (4.8-10.8)
--- NOTE | 2018-07-12 19:41 | CT Scan Report ---
CT head/brain wo con CT DOSE: 964.97 mGy.cm HISTORY: Trauma. Mental status change. weakness, fall TECHNIQUE: Multiaxial CT images of the head were performed without the use of intravenous contrast. A dose lowering technique was utilized adhering to the principles of ALARA. Comparison: 09/15/2016 Findings: The paranasal sinuses and mastoid air cells are clear. Unchanging sellar mass. Maximum dime nsion is approximately 2.4 x 2.5 cm. This is unchanged. Mild age-related atrophy and chronic small vessel change. No evidence for acute intracranial hemorrha ge. Impression: No acute intracranial abnormality. Known and stable sellar mass. The above report was generated using voice recognition software. It may contain grammatical, syntax or spelling errors. Electronically signed by: Moi Eng M.D. 07/12/2018 7:39 PM
--- NOTE | 2018-07-12 19:42 | CT Scan Report ---
CT cervical spine wo con CT DOSE: HISTORY: Trauma. Pain. fall TECHNIQUE: Multiaxial CT images of the cervical spine were performed and reformatted in the sagittal and coronal plane without the use of contrast. A dose lowering technique was utilized adhering to th e principles of ALARA. COMPARISON: None. FINDINGS: No fractures. No subluxation. Prevertebral soft tissues and the C1-C2 interval are intact. No pneumothorax. Generalized degenerative change. Osteopenia. IMPRESSION: No fractures within the cervical spine. Degenerative change. Osteopenia. The above report was generated using voice recognition software. It may contain grammatical, syntax or spelling errors. Electronically signed by: Moi Eng M.D. 07/12/2018 7:41 PM
[2018-07-12 19:51] LABS: Basophils # (auto) 0.02 K/uL (0-0.2); Basophils % (auto) 0.4 %; Eosinophils # (auto) 0.13 K/uL (0-0.5); Eosinophils % (auto) 2.3 %; Immature Granulocytes # (auto) 0.01 K/uL (0.00-0.02); Immature Granulocytes % (auto) 0.2 %; Lymphocytes # (auto) 0.78 K/uL (1.2-3.4); Lymphocytes % (auto) 13.9 %; Monocytes # (auto) 0.41 K/uL (0.11-0.59); Monocytes % (auto) 7.3 %; Neutrophils # (auto) 4.28 K/uL (1.4-6.5); Neutrophils % (auto) 75.9 %; Ovalocytes 1+; Platelet Estimate Decreased (Normal)
[2018-07-12 19:52] LABS: Albumin Globulin Ratio 0.9 (0.9-2); Bilirubin,Total 0.8 mg/dl (0.2-1); Globulin 2.8 gm/dl (2.5-4.0); Total Protein 5.2 gm/dl (6.4-8.2); Troponin I 0.073 ng/ml (0-0.045)
[2018-07-12] MEDS ORDERED: PANTOprazole 40 MG in SYRINGE 0 ML IV ONE (20:00)
[2018-07-12] MEDS ORDERED: SODIUM CHLORIDE 0.9% 250 ML IV PRN ×2 (20:01→21:49)
--- NOTE | 2018-07-12 21:27 | History & Physical Report ---
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 -Recurrent bleed, thought to be 2/2 AVM bleeding, h/o varices s/p banding in October 2016 -Multiple past admissions requiring blood transfusion -Hgb of 6.5 currently (baseline ~8) -Type and crossed for 2u prbcs -Will receive 40mg IV Lasix in between doses -Trend H & H -PPI bolus and drip -Keep NPO for now -GI consulted (3) Elevated troponin: Troponin elevated to 0.073 initially -H/o NSTEMI in setting of anemia -No CP or ischemic change on EKG , so likely due to demand ischemia -Aspirin has been d/c'd in the setting of persistent bleed -Trend troponin -Contine statin (4) Fluid retention: Has also been having mild to moderate fluid retention, multifactorial in etiology, for which he follows with cardiolgy -Currently taking 20mg Lasix daily with Metolazone 2.5mg tab as directed by PCP -Given 40mg IV Lasix in between prbc units -Hold home lasix and metolazone, in setting of ANDRE -Reassess volume status tomorrow (5) Acute kidney injury superimposed on chronic kidney disease: Cr elevated at 2.27 (baseline 1.5) -In setting of third spacing of fluid -Was given 40mg IV Lasix tonight -Reassess volume status tomorrow -BMP (6) Cirrhosis: No hepatic encephalopathy, ascites -Continue home dose rifaximin (7) Atrial fibrillation: Perisisent A fib, anticoagulation contraindicated due to coagulopathy, thrombocytopenia -Initial EKG with A fib -Cont home dose Coreg (8) 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 Platelets at 44 (baseline) -Continue to monitor -SCDs for ppx (9) BPH (benign prostatic hypertrophy): Continue tamsulosin (10) Hypothyroidism: Continue levothyroxine DVT Ppx: SCDs Code status: DNR per advanced directive and discussed with family PCP: Mikaela Dispo: Admitted to telemetry. 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 Patient's hemoglobin was low at 7 last week, so GI provider arranged for 1 unit PRBC transfusion at [facility]. Since then, daughter has noted that patient seems more weak, tired and has been having frequent dark colored stool. Denies any bright red blood. Follows with Dr. Milian and has a history of chronic anemia 2/2 a persistent GI bleed. 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 Has been admitted multiple times in the past due to symptomatic anemia requiring transfusion. EGD from July 2016 showed non-bleeding esophageal varices and + portal gastropathy as well. Last colonoscopy from November 2015 with AVMs noted as well as diverticulosis. Has also been having mild to moderate fluid retention, multifactorial in etiology, for which he follows with cardiolgy. There have been recent adjustments to diuretics and currently taking 20mg Lasix daily with Metolazone 2.5mg tab as directed by PCP. Also with sodium restriction diet. Patient endorses generalized weakness and fatigue. Denies fever, chills, lightheadedness, headache, confusion, chest pain, palpitation, shortness of breath, nausea, vomiting, abdominal pain, dysuria or constipation. Allergies Allergy/AdvReac Type Severity Reaction Status Date / Time lisinopril Allergy Unknown Unknown Verified 07/12/18 19:59 Home Medications Home Medications Medication Instructions Recorded Confirmed Type allopurinol 100 mg PO Q2D 04/27/18 07/12/18 History atorvastatin 40 mg PO HS 04/27/18 07/12/18 History calcium carbonate [Tums] 2,000 mg PO HS 04/27/18 07/12/18 History carvedilol 25 mg PO BID 04/27/18 07/12/18 History ferrous sulfate 325 mg PO DAILY 04/27/18 07/12/18 History furosemide 20 mg PO DAILY 04/27/18 07/12/18 History hydralazine 25 mg PO TID 04/27/18 07/12/18 History isosorbide mononitrate 30 mg PO QAM 04/27/18 07/12/18 History levothyroxine 75 mcg PO QAM 04/27/18 07/12/18 History magnesium oxide 400 mg PO QPM 04/27/18 07/12/18 History metolazone 2.5 mg PO DAILY PRN 04/27/18 07/12/18 History omeprazole 40 mg PO HS 04/27/18 07/12/18 History ondansetron HCl 4 mg PO HS 04/27/18 07/12/18 History oxycodone 5 mg PO TID PRN 04/27/18 07/12/18 History potassium chloride 20 meq PO QPM 04/27/18 07/12/18 History rifaximin 550 mg PO BID 04/27/18 07/12/18 History tamsulosin 0.4 mg PO QPM 04/27/18 07/12/18 History Past Med/Surg History Medical History Hypertension (Chronic) History of non-ST elevation myocardial infarction (NSTEMI) (Chronic) "in October 2010 secondary to severe anemia" Paroxysmal atrial fibrillation (Chronic) Hypothyroidism (Chronic) BPH (benign prostatic hypertrophy) (Chronic) Thrombocytopenia (Chronic) Anemia (Chronic) CKD (chronic kidney disease), stage III (Chronic) Atrial fibrillation (Chronic) Cirrhosis (Chronic) "nonalcoholic fatty liver disease" Dyslipidemia (Chronic) Esophageal varices (Chronic) "Mar 2015- small varices, mild erosive antral gastritis" GERD (gastroesophageal reflux disease) (Chronic) GI bleed (Resolved) Epistaxis (Inactive) Surgical History H/O colonoscopy (Chronic) "2010- adenomatous polyps; 11/2016- polyp, AVM's treated with thermal therapy and clipped, diverticulo sis, hemorrhoids" H/O esophagogastroduodenoscopy (Chronic) "Mar 2015- small varices, mild erosive antral gastritis" History of esophagogastroduodenoscopy (EGD) (Resolved) "07/12/1617 grade II esophageal varices, erosive gastropathy" Family History Father Heart disease Mother Tuberculosis Social History Preferred Language: Portuguese Communication Ability: Effective Applied Statistician Required: No Beliefs That Will Affect Care: None marital status: / Current Living Situation: Alone current occupational status: retired Other Information That Helps Us Care for You: No Feels Safe at Home: Yes Safety Concerns: Feels Safe At This Time Smoking Status: Former smoker Hx Alcohol Use: No Hx Substance Use: No Review of Systems All systems reviewed & are unremarkable except as noted in HPI & below Physical Exam Vital Signs (Past 24 Hours): Last Vital Signs Temp 36.8 C 07/12/18 18:40 Pulse 66 07/12/18 19:51 Resp 18 07/12/18 19:51 BP 99/51 L 07/12/18 19:50 Pulse Ox 96 07/12/18 19:51 Physical Exam: General Appearance: WD/WN, no apparent distress, pale Head: normocephalic, atraumatic Eyes: normal inspection, PERRL, EOMI ENT: hearing grossly normal, pharynx normal (moist mucous membranes) Neck: supple, + JVD, no adenopathy Respiratory/Chest: lungs clear to auscultation with coarse bibasilar breath sounds. No wheezes or rhonci. No respiratory distress or accessory muscle use Cardiovascular: regular rate, rhythm, no murmur, normal peripheral pulses, 2-3+ bilateral pitting lower extremity edema to thighs Abdomen/GI: normal bowel sounds, soft, non-tender to palpation Extremities/Musculoskelatal: normal inspection, no calf tenderness, normal capillary refill Neurologic/Psych: alert, normal mood/affect, oriented x 3 Skin: normal color, warm/dry, pale Results & Data Laboratory Results Short CBC 07/12/18 Range/Units 18:00 WBC 5.63 (4.8-10.8) K/uL Hgb 6.5 L* (14.0-18.0) g/dL Hct 20.2 L* (42-52) % Plt Count 44 L (130-400) K/uL BMP 07/12/18 18:00 Sodium 144 Potassium 3.7 Chloride 109 H Carbon Dioxide 26 BUN 55 H Creatinine 2.27 H Glucose 113 H Calcium 7.5 L Cardiac Enzymes 07/12/18 Range/Units 18:00 Troponin I 0.073 H* (0-0.045) ng/ml Liver Function 07/12/18 Range/Units 18:00 Total Bilirubin 0.8 (0.2-1) mg/dl AST 34 (15-37) U/L ALT 21 (12-78) U/L Alkaline Phosphatase 79 (45-117) U/L Albumin 2.4 L (3.4-5.0) gm/dl Diagnostic Findings CT head: Impression: No acute intracranial abnormality. Known and stable sellar mass. CT cervical spine: IMPRESSION: No fractures within the cervical spine. Degenerative change. Osteopenia. CXR: IMPRESSION: No acute process. Pelvis XR: IMPRESSION: Negative study. Mild degenerative change is present ECG Rhythm: atrial fibrillation Code Status & VTE Plan Code Status DNR Supervising Physician Co-Signing Physician Notes Care coordinated with Carmen Cuevas PA-C. Agree with able note. Patient seen and examined. Please refer to her notes for full details. Vital signs reviewed. Physical exam: General exam: Alert and oriented. Not in acute distress. CVS: S1 and S2 heard, regular rate and rhythm, no murmurs. RS: Clear to auscultation, no wheezing or crackles. ABD: Soft, bowel sounds present, nontender, no distention. SETTER HELPER: Nonfocal. EXT: No edema, no erythema. Labs: Reviewed. Assessment and plan: GI Bleed Anemia Hb 6.5 hemeoccult positive in ER to receive 2 units prbc ppi drip hx of GI bleed in he past with several scopes - no clear source possible bleeding from AVM's Last week hb 7.2 and received one unit prbc prior to that did ok for about one and half year Ambulatory dysfunction pt/ot Liver cirrhosis home meds will monitor volume status closely ANDRE Rceived a dose of iv lasix with prbc holding home diuretics to restart based on am labs Other diagnosis and plan of care as per Carmen Cuevas PA-C. Abhay matthew MD.
--- NOTE | 2018-07-12 21:55 | Emergency Department Note ---
Entered by Leslee Ducnan acting as a scribe for History of Present Illness General Chief complaint: Weakness Stated complaint: ILLNESSM WEAKNESS, CONFUSION Source: patient and family Mode of arrival: EMS Limitations: no limitations History of Present Illness Provider complaint: Weakness Onset (ago): day(s) 1 Pain Consistency: + other (worsening) Quality: + other (weakness) Relieved By: + none Associated symptoms: + other (Additional symptoms: constipation. Denies: head pain, arm/leg symptoms, cold symptoms, hematochezia); no confusion and no fev er/chills The patient is an 83 year old male with a history of hypertension, NSTEMI, par oxysmal atrial fibrillation, hypothyroidism, BPH, thrombocytopenia, anemia, GERD, CKD, cirrhosis, esophageal varices, and dyslipidemia who presents to the Emergency Room with complaints of worsening weakness starting yesterday following a fall. The patient reports that he hit his head during his fall but has no head pain or symptoms in his arms and legs. He states that he sometimes feels as though he "gets ahead of himself," which, when combined with his weakness, causes him to fall. He complains that he "can't do anything" secondary to his weakness, including going to the bathroom. Per family, the patient has fallen 3 other times recently and has been able to get himself up afterward each time. The family reports that the patient's last transfusion was 3 days ago. They note that the patient usually feels better following transfusion but that this did not seem to be the case this time. They add that his pain medications caused him to become constipated. When the patient passed a bowel movement, they claim that his stool appeared black, although the patient states that his stool is normally dark and appeared normal to him. The patient denies any confusion, and his family further denies any cold symptoms, fevers, and hematochezia. Per family, the patient has been taking his medication as prescribed and has only had a recent change in his water pill. Home Medications Home Medications Medication Instructions Recorded Confirmed Type allopurinol 100 mg PO Q2D 04/27/18 07/12/18 History atorvastatin 40 mg PO HS 04/27/18 07/12/18 History calcium carbonate [Tums] 2,000 mg PO HS 04/27/18 07/12/18 History carvedilol 25 mg PO BID 04/27/18 07/12/18 History ferrous sulfate 325 mg PO DAILY 04/27/18 07/12/18 History furosemide 20 mg PO DAILY 04/27/18 07/12/18 History hydralazine 25 mg PO TID 04/27/18 07/12/18 History isosorbide mononitrate 30 mg PO QAM 04/27/18 07/12/18 History levothyroxine 75 mcg PO QAM 04/27/18 07/12/18 History magnesium oxide 400 mg PO QPM 04/27/18 07/12/18 History metolazone 2.5 mg PO DAILY PRN 04/27/18 07/12/18 History omeprazole 40 mg PO HS 04/27/18 07/12/18 History ondansetron HCl 4 mg PO HS 04/27/18 07/12/18 History oxycodone 5 mg PO TID PRN 04/27/18 07/12/18 History potassium chloride 20 meq PO QPM 04/27/18 07/12/18 History rifaximin 550 mg PO BID 04/27/18 07/12/18 History tamsulosin 0.4 mg PO QPM 04/27/18 07/12/18 History Allergies Allergy/AdvReac Type Severity Reaction Status Date / Time lisinopril Allergy Unknown Unknown Verified 07/12/18 19:59 Past Med/Surg History Medical History Hypertension (Chronic) History of non-ST elevation myocardial infarction (NSTEMI) (Chronic) "in October 2010 secondary to severe anemia" Paroxysmal atrial fibrillation (Chronic) Hypothyroidism (Chronic) BPH (benign prostatic hypertrophy) (Chronic) Thrombocytopenia (Chronic) Anemia (Chronic) CKD (chronic kidney disease), stage III (Chronic) Atrial fibrillation (Chronic) Cirrhosis (Chronic) "nonalcoholic fatty liver disease" Dyslipidemia (Chronic) Esophageal varices (Chronic) "Mar 2015- small varices, mild erosive antral gastritis" GERD (gastroesophageal reflux disease) (Chronic) GI bleed (Resolved) Epistaxis (Inactive) Surgical History H/O colonoscopy (Chronic) "2010- adenomatous polyps; 11/2016- polyp, AVM's treated with thermal therapy and clipped, diverticulosis, hemorrhoids" H/O esophagogastroduodenoscopy (Chronic) "Mar 2015- small varices, mild erosive antral gastritis" History of esophagogastroduodenoscopy (EGD) (Resolved) "07/12/1617 grade II esophageal varices, erosive gastropathy" Family History Father Heart disease Mother Tuberculosis Social History Preferred Language: German Communication Ability: Effective Senior Technical Analyst Required: No Beliefs That Will Affect Care: None marital status: / Current Living Situation: Alone current occupational status: retired Other Information That Helps Us Care for You: No Feels Safe at Home: Yes Safety Concerns: Feels Safe At This Time Smoking Status: Former smoker Hx Alcohol Use: No Hx Substance Use: No Review of Systems See HPI for pertinent positives & negatives. and A total of 10 systems reviewed and were otherwise negative Physical Exam Vital Signs Vital Signs - 24 hr 07/12/18 18:40 07/12/18 19:50 07/12/18 19:51 Temperature 36.8 C Temperature Source Oral Sepsis Recent Fever Within 48 Hours No Sepsis New/Unexplained Change in Mental Status No Sepsis Action Taken by Nursing No Action Required Pulse Rate 64 66 Pulse Rate [Apical] 66 Respiratory Rate 18 18 18 Respiratory Effort / Characteristics Respiratory Depth Respiratory Pattern Blood Pressure 110/58 L Blood Pressure [Right Arm] 99/51 L Blood Pressure Mean 75 Blood Pressure Mean [Right Arm] 67 Pulse Oximetry 98 96 96 Oxygen Delivery Method Room Air 07/12/18 20:46 07/12/18 21:01 07/12/18 21:15 Temperature 36.9 C 36.8 C Temperature Source Oral Oral Sepsis Recent Fever Within 48 Hours Sepsis New/Unexplained Change in Mental Status Sepsis Action Taken by Nursing Pulse Rate 70 76 Pulse Rate [Apical] Respiratory Rate 19 23 Respiratory Effort / Characteristics Non-Labored Spontaneous Respiratory Depth Normal Respiratory Pattern Regular Blood Pressure 103/71 123/60 Blood Pressure [Right Arm] Blood Pressure Mean 81 81 Blood Pressure Mean [Right Arm] Pulse Oximetry 98 98 Oxygen Delivery Method Room Air GENERAL: Awake, alert, weak, fatigued-appearing, in no distress HENT: Normocephalic, atraumatic. EYES: Normal conjunctiva. Sclera non-icteric. PERRL. Extraocular motions intact. NECK: Supple. No nuchal rigidity. RESPIRATORY: Clear to auscultation. Normal respiratory effort. CARDIAC: Normal rate. Normal rhythm. Extremities warm and well perfused. GI: Soft. No tenderness to palpation. No rebound or guarding. No masses. Mild distention. RECTAL: Hemoccult positive. Melanotic stool MUSCULOSKELETAL: Atraumatic. Chest examination reveals no tenderness. There is no CVA tenderness to palpation. LOWER EXTREMITIES: Calves are equal size bilaterally and non-tender. 2+ bilateral edema NEURO: Normal sensorium. No sensory or motor deficits noted. No facial droop. No asterixis. SKIN: Warm and dry. No rash or jaundice noted. Course 184: Past medical records reviewed. The patient was evaluated in room C10, and a complete history and physical examination were performed. 2000: I reviewed the patient's case with Dr. Palencia - HospitalistDevin. Dr. Palencia will evaluate the patient for further management. Administered Medications Discontinued Medications Pantoprazole Sodium 40 mg/ (Syringe) 10 mls @ 5 mls/min IV NOW ONE Stop: 07/12/18 20:01 Last Admin: 07/12/18 20:26 Dose: 5 mls/min Documented by: [id number] Medical Decision Making Differential Diagnosis Differential diagnosis includes but is not limited to dehydration, stroke, anemia, hypoglycemia, hyponatremia, hypernatremia, urinary tract infection, pneumonia, bronchitis, sepsis, gastroenteritis, additional abdominal pathology, metabolic abnormalities and infections. Medical Records Attestation: I reviewed the patient's medical records. Home Medications Current Medication List: was personally reviewed by me Laboratory Data Attestation: I reviewed the patient's lab results. Result diagrams: 07/12/18 18:00 07/12/18 18:00 Lab Results 07/12/18 07/12/18 07/12/18 Range/Units 18:00 18:00 18:00 WBC 5.63 (4.8-10.8) K/uL RBC 2.20 L (4.7-6.1) M/uL Hgb 6.5 L* (14.0-18.0) g/dL Hct 20.2 L* (42-52) % MCV 91.8 (80-100) fL MCH 29.5 (25-34) pg MCHC 32.2 (32-36) g/dL RDW Std Deviation 59.8 H (36.4-46.3) fL RDW Coeff of Erick 18.4 H (11.5-14.5) % Plt Count 44 L (130-400) K/uL MPV 11.6 H (7.4-10.4) fL Immature Gran % (Auto) 0.2 % Neut % (Auto) 75.9 % Lymph % (Auto) 13.9 % Allen % (Auto) 7.3 % Eos % (Auto) 2.3 % Baso % (Auto) 0.4 % Immature Gran # (Auto) 0.01 (0.00-0.02) K/uL Neut # (Auto) 4.28 (1.4-6.5) K/uL Lymph # (Auto) 0.78 L (1.2-3.4) K/uL Allen # (Auto) 0.41 (0.11-0.59) K/uL Eos # (Auto) 0.13 (0-0.5) K/uL Baso # (Auto) 0.02 (0-0.2) K/uL Platelet Estimate Decreased (Normal) Ovalocytes 1+ PT 12.1 H (9.0-12.0) Seconds INR 1.2 H (0.9-1.1) Sodium 144 (136-145) mmol/L Potassium 3.7 (3.5-5.1) mmol/L Chloride 109 H (98-107) mmol/L Carbon Dioxide 26 (21-32) mmol/L Anion Gap 8.0 (3-11) BUN 55 H (7-18) mg/dl Creatinine 2.27 H (0.6-1.4) mg/dl Est Cr Clr Drug Dosing 27.2 ml/min Est GFR ( Amer) 30.2 Est GFR (Non-Af Amer) 26.1 BUN/Creatinine Ratio 24.2 H (10-20) Glucose 113 H (70-99) mg/dl Calcium 7.5 L (8.5-10.1) mg/dl Magnesium 2.1 (1.8-2.4) mg/dl Total Bilirubin 0.8 (0.2-1) mg/dl AST 34 (15-37) U/L ALT 21 (12-78) U/L Alkaline Phosphatase 79 (45-117) U/L Ammonia (11-32) umol/L Troponin I 0.073 H* (0-0.045) ng/ml Total Protein 5.2 L (6.4-8.2) gm/dl Albumin 2.4 L (3.4-5.0) gm/dl Globulin 2.8 (2.5-4.0) gm/dl Albumin/Globulin Ratio 0.9 (0.9-2) TSH 3.570 (0.300-4.500) uIu/ml Blood Type Antibody Screen Crossmatch 07/12/18 07/12/18 Range/Units 19:13 19:13 WBC (4.8-10.8) K/uL RBC (4.7-6.1) M/uL Hgb (14.0-18.0) g/dL Hct (42-52) % MCV (80-100) fL MCH (25-34) pg MCHC (32-36) g/dL RDW Std Deviation (36.4-46.3) fL RDW Coeff of Erick (11.5-14.5) % Plt Count (130-400) K/uL MPV (7.4-10.4) fL Immature Gran % (Auto) % Neut % (Auto) % Lymph % (Auto) % Allen % (Auto) % Eos % (Auto) % Baso % (Auto) % Immature Gran # (Auto) (0.00-0.02) K/uL Neut # (Auto) (1.4-6.5) K/uL Lymph # (Auto) (1.2-3.4) K/uL Allen # (Auto) (0.11-0.59) K/uL Eos # (Auto) (0-0.5) K/uL Baso # (Auto) (0-0.2) K/uL Platelet Estimate (Normal) Ovalocytes PT (9.0-12.0) Seconds INR (0.9-1.1) Sodium (136-145) mmol/L Potassium (3.5-5.1) mmol/L Chloride (98-107) mmol/L Carbon Dioxide (21-32) mmol/L Anion Gap (3-11) BUN (7-18) mg/dl Creatinine (0.6-1.4) mg/dl Est Cr Clr Drug Dosing ml/min Est GFR ( Amer) Est GFR (Non-Af Amer) BUN/Creatinine Ratio (10-20) Glucose (70-99) mg/dl Calcium (8.5-10.1) mg/dl Magnesium (1.8-2.4) mg/dl Total Bilirubin (0.2-1) mg/dl AST (15-37) U/L ALT (12-78) U/L Alkaline Phosphatase (45-117) U/L Ammonia 35.7 H (11-32) umol/L Troponin I (0-0.045) ng/ml Total Protein (6.4-8.2) gm/dl Albumin (3.4-5.0) gm/dl Globulin (2.5-4.0) gm/dl Albumin/Globulin Ratio (0.9-2) TSH (0.300-4.500) uIu/ml Blood Type O Positive Antibody Screen NEGATIVE Crossmatch See Detail Imaging Data Radiologist's Impression: Radiology results as stated below per my review and the radiologist's interpretation: XR chest 1V portable CLINICAL HISTORY: weakness dyspnea COMPARISON STUDY: 04/05/2017 FINDINGS: Mild stable cardiomegaly. Tortuous thoracic aorta. Lungs are clear. Minimal platelike bibasilar atelectasis. IMPRESSION: No acute process. The above report was generated using voice recognition software. It may contain grammatical, syntax or spelling errors. Electronically signed by: Moi Eng M.D. 07/12/2018 7:18 PM XR pelvis 1-2V routine CLINICAL HISTORY: fall trauma. Pain. COMPARISON: None. DISCUSSION: The bones and joint spaces appear intact. There is no evidence of fracture, dislocation or bony disease. There is no evidence for soft tissue swelling. IMPRESSION: Negative study. Mild degenerative change is present The above report was generated using voice recognition software. It may contain grammatical, syntax or spelling errors. Electronically signed by: Moi Eng M.D. 07/12/2018 7:[address] cervical spine wo con CT DOSE: HISTORY: Trauma. Pain. fall TECHNIQUE: Multiaxial CT images of the cervical spine were performed and reformatted in the sagittal and coronal plane without the use of contrast. A dose lowering technique was utilized adhering to the principles of ALARA. COMPARISON: None. FINDINGS: No fractures. No subluxation. Prevertebral soft tissues and the C1-C2 interval are intact. No pneumothorax. Generalized degenerative change. Osteopenia. IMPRESSION: No fractures within the cervical spine. Degenerative change. Osteopenia. The above report was generated using voice recognition software. It may contain grammatical, syntax or spelling errors. Electronically signed by: Moi Eng M.D. 07/12/2018 7:[address] head/brain wo con CT DOSE: 964.97 mGy.cm HISTORY: Trauma. Mental status change. weakness, fall TECHNIQUE: Multiaxial CT images of the head were performed without the use of intravenous contrast. A dose lowering technique was utilized adhering to the principles of ALARA. Comparison: 09/15/2016 Findings: The paranasal sinuses and mastoid air cells are clear. Unchanging sellar mass. Maximum dimension is approximately 2.4 x 2.5 cm. This is unchanged. Mild age-related atrophy and chronic small vessel change. No evidence for acute intracranial hemorrhage. Impression: No acute intracranial abnormality. Known and stable sellar mass. The above report was generated using voice recognition software. It may contain grammatical, syntax or spelling errors. Electronically signed by: Moi Eng M.D. 07/12/2018 7:39 PM ECG Data Attestation: I personally reviewed and interpreted this ECG as follows: Indication: weakness Rate (beats per minute): 75 Rhythm: atrial fibrillation Findings: + other (nonspecific T wave changes); no ST depression and no ST elevation Comparison ECG Date: from (04/05/17) Change: no significant change Blood Pressure Blood Pressure Findings: Normal blood pressure MDM Narrative 83-year-old gentleman with a history of CKD, paroxysmal atrial fibrillation, hypertension, cardiac disease, GERD, cirrhosis, chronic GI bleed recently seen transfusion several days ago presenting with weakness today. Brought in by EMS complaining of weakness and tiredness with 4 falls this weekend. Patient complains of generalized weakness and fatigue. Denies significant confusion. Denies melanotic or bloody stools. On exam however he has melanotic stools are Hemoccult positive. Denies significant pain. Did strike his head and CT the head and cervical spine was completed x-rays of the chest and pelvis completed. No evidence of other significant trauma. Imaging is negative for acute traumatic pathology. Patient states that he did not get much of an improvement of symptoms after the transfusion this past week. No infectious symptomatologies reported. From outpatient labs over the last month it appears the patient has a new acute kidney injury with some hypocalcemia. Patient has been having adjustments made to his diuretic regimen. Acute anemia is noted lower than his pre-transfusion value last week. Slight troponin elevation likely demand from his acute blood loss anemia. Hemoccult positive. Give some Protonix but lower suspicion this an upper GI bleed. Has had prior workup without specific findings. Benign abdomen. Will defer additional imaging at this time. Family consented for blood transfusion and this was ordered. Discussed with the hospitalist for admission. Did not give aspirin due to the GI bleed. Impression & Plan Acute blood loss anemia, GI bleed, Non-ST elevated myocardial infarction (non- STEMI), Weakness, Falls Critical Care Time I have personally spent greater than 45 minutes of critical care time in the direct management of this patient. This includes bedside care, interpretation of diagnostic studies, and testing, discussion with consultants, patient, and family members, and other required patient management activities. This 45 minutes is in excess of all separately billable procedures. Critical Care Time: Yes Total Critical Care Time: 45 Discharge Plan Visit Data *Final* Discharge Date/Time: 07/12/18 21:22 Chief Complaint: Weakness Stated Complaint: ILLNESSM WEAKNESS, CONFUSION ED Provider: El Fernández Discharge Problem: Acute blood loss anemia, GI bleed, Non-ST elevated myocardial infarction (non- STEMI), Weakness, Falls Patient Disposition: Admitted As Inpatient Discharge Instructions Interventions: ED Discharge Assessment Last Done: 07/12/18 21:22 Discharge Problem: GI bleed Qualifiers: GI bleed type/associated pathology: unspecified gastrointestinal hemorrhage type Qualified Code(s): K92.2 - Gastrointestinal hemorrhage, unspecified Falls Qualifiers: Encounter type: initial encounter Qualified Code(s): W19.XXXA - Unspecified fall, initial encounter The scribe's documentation has been prepared under my direction and personally reviewed by me in its entirety. I confirm that the note above accurately reflects all work, treatment, procedures, and medical decision making performed by me.
[2018-07-12] MEDS ORDERED: FUROSEMIDE 40 MG in SYRINGE 0 ML IV SCH (22:00)
[2018-07-12] MEDS: OXYCODONE HCL IR 5 MG TAB (IMMEDIATE RELEASE) PO PRN (22:14)
[2018-07-12] MEDS: PANTOprazole 40 MG in DEXTROSE 5% 100 ML IV SCH (22:14)
[2018-07-12] MEDS: ONDANSETRON 4 MG TAB PO SCH (22:14)
[2018-07-12] MEDS: RIFAXIMIN 550 MG TABLET PO SCH (22:14)
[2018-07-12] MEDS: TAMSULOSIN HCL 0.4 MG CAP PO SCH (22:15)
[2018-07-12] MEDS: POTASSIUM CHLORIDE 20 MEQ TABCR PO SCH (22:15)
[2018-07-12] MEDS: MAGNESIUM OXIDE 400 MG TAB PO SCH (22:15)
[2018-07-12] MEDS: CALCIUM CARBONATE 500 MG CHEWABLE TAB PO SCH (22:16)
[2018-07-12] MEDS: ATORVASTATIN 40 MG TAB PO SCH (22:16)
[2018-07-12] MEDS: CARVEDILOL 25 MG TAB PO SCH (22:17)
[2018-07-13 00:20] LABS: Appearance Urine Clear (Clear); Bilirubin Urine Negative (Negative); Blood Urine Negative (Negative); Color Urine Yellow; Glucose Urine UA Negative (Negative); Ketones Urine Negative (Negative); Leukocyte Esterase Urine Negative (Negative); Nitrite Urine Negative (Negative); Protein Urine Negative (Negative); Urobilinogen Urine Negative (Negative)
[2018-07-13] MEDS: PANTOprazole 40 MG in DEXTROSE 5% 100 ML IV SCH ×5 (04:25→23:28)
[2018-07-13] MEDS: LEVOTHYROXINE SODIUM 75 MCG TABLET PO SCH (06:06)
[2018-07-13 06:11] LABS: Hematocrit (blood only) 23.5 % (42-52); Hemoglobin 7.6 g/dL (14.0-18.0); Mean Corpuscular Hgb Conc 32.3 g/dL (32-36); Mean Corpuscular Volume 88.7 fL (80-100); RDW Coefficient of Variation 17.5 % (11.5-14.5); RDW Standard Deviation 54.1 fL (36.4-46.3); Red Blood Count 2.65 M/uL (4.7-6.1); White Blood Count 4.31 K/uL (4.8-10.8)
[2018-07-13 06:28] LABS: Mean Platelet Volume 11.9 fL (7.4-10.4); Platelet Count 44 K/uL (130-400)
[2018-07-13 06:32] LABS: INR 1.2 (0.9-1.1); Partial Thromboplastin Ratio 1.1; Partial Thromboplastin Time 28.6 Seconds (21.0-31.0); Prothrombin Time 12.6 Seconds (9.0-12.0)
[2018-07-13 06:44] LABS: Albumin Level 2.4 gm/dl (3.4-5.0); BUN Creatinine Ratio 22.4 (10-20); Calcium 7.2 mg/dl (8.5-10.1); Creatinine Clr Calc Pharmacy 28.1 ml/min; Est GFR (African American) 32.1; Est GFR (Non-African American) 27.7; Potassium 3.7 mmol/L (3.5-5.1)
[2018-07-13 07:03] LABS: Albumin Globulin Ratio 0.9 (0.9-2); Bilirubin,Total 1.2 mg/dl (0.2-1); Globulin 2.6 gm/dl (2.5-4.0); Troponin I 0.059 ng/ml (0-0.045)
[2018-07-13] MEDS: ISOSORBIDE MONO EXTENDED REL 30 MG TABCR PO SCH (09:00)
[2018-07-13] MEDS: CARVEDILOL 25 MG TAB PO SCH ×2 (09:00→20:12)
[2018-07-13] MEDS: FERROUS SULFATE 325 MG TAB PO SCH (09:00)
[2018-07-13] MEDS: RIFAXIMIN 550 MG TABLET PO SCH ×2 (09:01→20:13)
[2018-07-13] MEDS: OXYCODONE HCL IR 5 MG TAB (IMMEDIATE RELEASE) PO PRN ×2 (09:04→20:11)
--- NOTE | 2018-07-13 10:32 | Gastrointestinal Consultation ---
Date of Consultation July 13, 2018 Assessment & Plan (1) GI bleed: Continue PPI drip. Keep NPO for now. Patient has not had any BMs yet today. Hgb stable post transfusion. Will d/w attending regarding EGD due to hx of esophageal varices. Present on Admission?: Yes (2) Cirrhosis: Present on Admission?: Yes (3) Esophageal varices: Supervising Physician Co-Signing Physician Notes I have personally seen and examined the patient with Natalie Valdovinos PA-C. Her note reflects my exam and findings. I agree with her impression and plan. There is no sign of active bleeding ( no BM). Most c/w chronic low grade GI bleeding from obscure source. No indication for endoscopy. Discussed with daughter Soila as well who agrees with conservative care. If H/H stays stable, primary service can advance diet as tolerates. Riccardo Johnson M.D. History of Present Illness Attending Physician: Santo Hi DO 83 year old male with a hx of cryptogenic cirrhosis, NAFLD, esophageal varices, multiple colonic AVMs, Afib, CKD and HTN, admitted with a 3 day hx of very dark stools. Found to have a Hgb of 6.5 with an elevated BUN. Hgb typically runs between 7-9 but was just over 11 most recently. He denies any abdominal pain, n/v, heartburn. Bowels moving about every other day. Last BM was yesterday mid- afternoon. Last EGD was in 2017 with banding of esophageal varices. Prior colonoscopy in 2016 showed multiple colonic AVMs, s/p APC of 12 separate sites. He is on a PPI drip currently and has received 2 units of blood. Hgb today is 7.6. Blood work shows mildly elevated troponin x 3 - ? secondary to demand ischemia - prior hx NSTEMI. Allergies Allergy/AdvReac Type Severity Reaction Status Date / Time lisinopril Allergy Unknown Unknown Verified 07/12/18 19:59 Home Medications Home Medications Medication Instructions Recorded Confirmed Type allopurinol 100 mg PO Q2D 04/27/18 07/12/18 History atorvastatin 40 mg PO HS 04/27/18 07/12/18 History calcium carbonate [Tums] 2,000 mg PO HS 04/27/18 07/12/18 History carvedilol 25 mg PO BID 04/27/18 07/12/18 History ferrous sulfate 325 mg PO DAILY 04/27/18 07/12/18 History furosemide 20 mg PO DAILY 04/27/18 07/12/18 History hydralazine 25 mg PO TID 04/27/18 07/12/18 History isosorbide mononitrate 30 mg PO QAM 04/27/18 07/12/18 History levothyroxine 75 mcg PO QAM 04/27/18 07/12/18 History magnesium oxide 400 mg PO QPM 04/27/18 07/12/18 History metolazone 2.5 mg PO DAILY PRN 04/27/18 07/12/18 History omeprazole 40 mg PO HS 04/27/18 07/12/18 History ondansetron HCl 4 mg PO HS 04/27/18 07/12/18 History oxycodone 5 mg PO TID PRN 04/27/18 07/12/18 History potassium chloride 20 meq PO QPM 04/27/18 07/12/18 History rifaximin 550 mg PO BID 04/27/18 07/12/18 History tamsulosin 0.4 mg PO QPM 04/27/18 07/12/18 History Patient History Medical History Hypertension (Chronic) History of non-ST elevation myocardial infarction (NSTEMI) (Chronic) "in October 2010 secondary to severe anemia" Paroxysmal atrial fibrillation (Chronic) Hypothyroidism (Chronic) BPH (benign prostatic hypertrophy) (Chronic) Thrombocytopenia (Chronic) Anemia (Chronic) CKD (chronic kidney disease), stage III (Chronic) Atrial fibrillation (Chronic) Cirrhosis (Chronic) "nonalcoholic fatty liver disease" Dyslipidemia (Chronic) Esophageal varices (Chronic) "Mar 2015- small varices, mild erosive antral gastritis" GERD (gastroesophageal reflux disease) (Chronic) GI bleed (Resolved) Epistaxis (Inactive) Surgical History H/O colonoscopy (Chronic) "2010- adenomatous polyps; 11/2016- polyp, AVM's treated with thermal therapy and clipped, diverticulosis, hemorrhoids" H/O esophagogastroduodenoscopy (Chronic) "Mar 2015- small varices, mild erosive antral gastritis" History of esophagogastroduodenoscopy (EGD) (Resolved) "07/12/1617 grade II esophageal varices, erosive gastropathy" Family History Father Heart disease Mother Tuberculosis Social History Communication Ability: Effective Beliefs That Will Affect Care: None marital status: / Current Living Situation: Alone current occupational status: retired Other Information That Helps Us Care for You: No Feels Safe at Home: Yes Safety Concerns: Feels Safe At This Time Smoking Status: Former smoker Hx Alcohol Use: No Hx Substance Use: No Review of Systems Constitutional: no fever, no chills, no fatigue and no weight loss Eyes: no eye pain and no worsening vision Ear, Nose, Mouth, Throat: no ear pain, no hearing loss, no nasal congestion and no sore throat Respiratory: no cough, no chest congestion and no wheezing Cardiovascular: + dyspnea on exertion; no chest pain Gastrointestinal: as per Subjective / HPI Musculoskeletal: no joint pain Integumentary: no rash and no pruritus Neurologic: no tingling, no numbness and no dizziness Psychiatric: no suicidal ideation and no confusion Endocrine: no cold intolerance and no heat intolerance Hematologic / Lymphatic: no easy bleeding and no easy bruising Allergy / Immunological: no problem reported Physical Exam Vital Signs (Past 24 Hours): Last Vital Signs Temp 36.7 C 07/13/18 07:11 Pulse 67 07/13/18 07:11 Resp 18 07/13/18 07:11 BP 132/67 07/13/18 07:11 Pulse Ox 96 07/13/18 07:11 Constitutional: WD/WN, vitals as above no acute distress Eyes: + anicteric sclerae ENMT: external ear and nose normal, oropharynx normal Neck: normal visual inspection Respiratory: normal respiratory effort, lungs clear to auscultation Cardiovascular: Rate/Rhythm: regular rate and regular rhythm Heart Sounds: no murmur Extremities: + edema (trace -1+ BLE) Gastrointestinal (Abdomen): normal bowel sounds, soft, nontender, no hepatosplenomegaly Musculoskeletal: Head/Neck/Chest: normocephalic and head atraumatic Skin: no rashes, warm and dry Neurologic: moves all extremities; no focal motor deficits Psychiatric: Orientation: alert and oriented x 3 Results & Data Laboratory Results Laboratory Results - last 48 hr 07/12/18 07/12/18 07/12/18 18:00 18:00 18:00 WBC 5.63 RBC 2.20 L Hgb 6.5 L* Hct 20.2 L* MCV 91.8 MCH 29.5 MCHC 32.2 RDW Std Deviation 59.8 H RDW Coeff of Erick 18.4 H Plt Count 44 L MPV 11.6 H Immature Gran % (Auto) 0.2 Neut % (Auto) 75.9 Lymph % (Auto) 13.9 [place] % (Auto) 7.3 Eos % (Auto) 2.3 Baso % (Auto) 0.4 Immature Gran # (Auto) 0.01 Neut # (Auto) 4.28 Lymph # (Auto) 0.78 L [place] # (Auto) 0.41 Eos # (Auto) 0.13 Baso # (Auto) 0.02 Platelet Estimate Decreased Ovalocytes 1+ PT 12.1 H INR 1.2 H APTT PTT Ratio Sodium 144 Potassium 3.7 Chloride 109 H Carbon Dioxide 26 Anion Gap 8.0 BUN 55 H Creatinine 2.27 H Est Cr Clr Drug Dosing 27.2 Est GFR ( Amer) 30.2 Est GFR (Non-Af Amer) 26.1 BUN/Creatinine Ratio 24.2 H Glucose 113 H Calcium 7.5 L Magnesium 2.1 Total Bilirubin 0.8 AST 34 ALT 21 Alkaline Phosphatase 79 Ammonia Troponin I 0.073 H* Total Protein 5.2 L Albumin 2.4 L Globulin 2.8 Albumin/Globulin Ratio 0.9 TSH 3.570 Urine Color Urine Appearance Urine pH Ur Specific [place] Urine Protein Urine Glucose (UA) Urine Ketones Urine Blood Urine Nitrite Urine Bilirubin Urine Urobilinogen Ur Leukocyte Esterase Blood Type Antibody Screen Crossmatch 07/12/18 07/12/18 07/13/18 19:13 19:13 00:06 WBC RBC Hgb Hct MCV MCH MCHC RDW Std Deviation RDW Coeff of Erick Plt Count MPV Immature Gran % (Auto) Neut % (Auto) Lymph % (Auto) [place] % (Auto) Eos % (Auto) Baso % (Auto) Immature Gran # (Auto) Neut # (Auto) Lymph # (Auto) [place] # (Auto) Eos # (Auto) Baso # (Auto) Platelet Estimate Ovalocytes PT INR APTT PTT Ratio Sodium Potassium Chloride Carbon Dioxide Anion Gap BUN Creatinine Est Cr Clr Drug Dosing Est GFR ( Amer) Est GFR (Non-Af Amer) BUN/Creatinine Ratio Glucose Calcium Magnesium Total Bilirubin AST ALT Alkaline Phosphatase Ammonia 35.7 H Troponin I Total Protein Albumin Globulin Albumin/Globulin Ratio TSH Urine Color Yellow Urine Appearance Clear Urine pH 7.0 Ur Specific [place] 1.010 Urine Protein Negative Urine Glucose (UA) Negative Urine Ketones Negative Urine Blood Negative Urine Nitrite Negative Urine Bilirubin Negative Urine Urobilinogen Negative Ur Leukocyte Esterase Negative Blood Type O Positive Antibody Screen NEGATIVE Crossmatch See Detail 07/13/18 07/13/18 07/13/18 00:16 05:24 05:24 WBC 4.31 L RBC 2.65 L Hgb 7.6 L Hct 23.5 L MCV 88.7 MCH 28.7 MCHC 32.3 RDW Std Deviation 54.1 H RDW Coeff of Erick 17.5 H Plt Count 44 L MPV 11.9 H Immature Gran % (Auto) Neut % (Auto) Lymph % (Auto) [place] % (Auto) Eos % (Auto) Baso % (Auto) Immature Gran # (Auto) Neut # (Auto) Lymph # (Auto) [place] # (Auto) Eos # (Auto) Baso # (Auto) Platelet Estimate Ovalocytes PT 12.6 H INR 1.2 H APTT 28.6 PTT Ratio 1.1 Sodium Potassium Chloride Carbon Dioxide Anion Gap BUN Creatinine Est Cr Clr Drug Dosing Est GFR ( Amer) Est GFR (Non-Af Amer) BUN/Creatinine Ratio Glucose Calcium Magnesium Total Bilirubin AST ALT Alkaline Phosphatase Ammonia Troponin I 0.076 H* Total Protein Albumin Globulin Albumin/Globulin Ratio TSH Urine Color Urine Appearance Urine pH Ur Specific [place] Urine Protein Urine Glucose (UA) Urine Ketones Urine Blood Urine Nitrite Urine Bilirubin Urine Urobilinogen Ur Leukocyte Esterase Blood Type Antibody Screen Crossmatch 07/13/18 05:24 WBC RBC Hgb Hct MCV MCH MCHC RDW Std Deviation RDW Coeff of Erick Plt Count MPV Immature Gran % (Auto) Neut % (Auto) Lymph % (Auto) [place] % (Auto) Eos % (Auto) Baso % (Auto) Immature Gran # (Auto) Neut # (Auto) Lymph # (Auto) [place] # (Auto) Eos # (Auto) Baso # (Auto) Platelet Estimate Ovalocytes PT INR APTT PTT Ratio Sodium 145 Potassium 3.7 Chloride 111 H Carbon Dioxide 27 Anion Gap 8.0 BUN 48 H Creatinine 2.16 H Est Cr Clr Drug Dosing 28.1 Est GFR ( Amer) 32.1 Est GFR (Non-Af Amer) 27.7 BUN/Creatinine Ratio 22.4 H Glucose 100 H Calcium 7.2 L Magnesium Total Bilirubin 1.2 H AST 32 ALT 19 Alkaline Phosphatase 76 Ammonia Troponin I 0.059 H* Total Protein 5.0 L Albumin 2.4 L Globulin 2.6 Albumin/Globulin Ratio 0.9 TSH Urine Color Urine Appearance Urine pH Ur Specific [place] Urine Protein Urine Glucose (UA) Urine Ketones Urine Blood Urine Nitrite Urine Bilirubin Urine Urobilinogen Ur Leukocyte Esterase Blood Type Antibody Screen Crossmatch (1) GI bleed GI bleed type/associated pathology: unspecified gastrointestinal hemorrhage type Qualified Code(s): K92.2 - Gastrointestinal hemorrhage, unspecified
--- NOTE | 2018-07-13 11:28 | Hospitalist Progress Note ---
Date of Service July 13, 2018 Assessment & Plan (1) Symptomatic anemia: (2) GI bleed: This is a 83yo M with a PMH of cirrhosis 2/2 NAFLD, chronic anemia, persistent A Fib, CKD III, thrombocytopenia, HTN, CAD, hypothyroidism and chronic back pain who presents with dark colored stool and generalized weakness x 3 days. -Recurrent bleed, thought to be 2/2 AVM bleeding, h/o varices s/p banding in October 2016 -Multiple past admissions requiring blood transfusion -Hgb of 6.5 currently (baseline ~8), transfused to 7.6 -Trend H & H -PPI drip -Keep NPO for now -GI on case (3) Elevated troponin: Troponin elevated to 0.073 initially, trending down -h/o NSTEMI in setting of anemia -No CP or ischemic change on EKG , so likely due to demand ischemia -Aspirin has been d/c'd in the setting of persistent bleed -Contine statin (4) Fluid retention: Has also been having mild to moderate fluid retention, multifactorial in etiology, for which he follows with cardiolgy -Currently taking 20mg Lasix daily with Metolazone 2.5mg tab as directed by PCP -Given 40mg IV Lasix in between prbc units -Hold home lasix and metolazone, in setting of ANDRE (5) Acute kidney injury superimposed on chronic kidney disease: Cr elevated at 2.27 (baseline 1.5) -In setting of third spacing of fluid -Was given 40mg IV Lasix (6) Cirrhosis: No hepatic encephalopathy, ascites -Continue home dose rifaximin (7) Atrial fibrillation: Perisisent A fib, anticoagulation contraindicated due to coagulopathy, thrombocytopenia -Initial EKG with A fib -Cont home dose Coreg (8) 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 Platelets at 44 (baseline) -Continue to monitor -SCDs for ppx (9) BPH (benign prostatic hypertrophy): Continue tamsulosin (10) Hypothyroidism: Continue levothyroxine DVT Ppx: SCDs Code status: DNR per advanced directive and discussed with family PCP: Marilynn Al D.O. Dispo: Admitted to telemetry. Discharge planning ordered (patient is >80 and lives alone) Subjective This is a 83yo M with a PMH of cirrhosis 2/2 NAFLD, chronic anemia, persistent A Fib, CKD III, thrombocytopenia, HTN, CAD, hypothyroidism and chronic back pain who presents with dark colored stool and generalized weakness x 3 days. Patient's hemoglobin was low at 7 last week, so GI provider arranged for 1 unit PRBC transfusion at [facility]. Since then, daughter has noted that patient seems more weak, tired and has been having frequent dark colored stool. Denies any bright red blood. Follows with Dr. Milian and has a history of chronic anemia 2/2 a persistent GI bleed. 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 Has been admitted multiple times in the past due to symptomatic anemia requiring transfusion. EGD from July 2016 showed non-bleeding esophageal varices and + portal gastropathy as well. Last colonoscopy from November 2015 with AVMs noted as well as diverticulosis. Has also been having mild to moderate fluid retention, multifactorial in etiology, for which he follows with cardiolgy. There have been recent adjustments to diuretics and currently taking 20mg Lasix daily with Metolazone 2.5mg tab as directed by PCP. Also with sodium restriction diet. Patient endorses generalized weakness and fatigue. Denies fever, chills, lightheadedness, headache, confusion, chest pain, palpitation, shortness of breath, nausea, vomiting, abdominal pain, dysuria or constipation. ROS-No Headache, No Visual Changes, No Nausea, No Vomiting, No Fever, No Chills, No Neck Pain or Stiffness, No Chest Pain, No Palpitations, No SOB, No POWELL, No Cough, No Sputum, No Wheezing, No Abdominal Pain, No Diarrhea, No Hematemesis, No Hemoptysis, No Unexpected Weight Loss, No Flank pain, No Melena, No Hematochezia, No Frequency, No Urgency, No Burning, No Hematuria, No Rashes, No Diaphoresis. Appetite is Normal Physical Exam Gen-AAO x 3, NAD, Afebrile, [place], Obese Head-NCAT, EOMI, PERRLA, Anicteric Sclera, No Posterior Pharyngeal Erythema Neck-Supple, No JVD, No Thyromegaly, No Masses, No LAD, No Bruits Lungs-Clear to Auscultation Bilaterally, No Rales, No Rhonchi, No Wheezing, No Crepitus Chest-No S4, +S1, +S2, No S3, No Murmurs, No Rubs, No Gallops, No Ectopy Abdomen-Soft, Obese, Bowel Sounds Present, Non Tender, Non Distended, No Hepatomegaly, No Splenomegaly, No Palpable Masses, No Rebound, No Rigidity, No Guarding Musculoskeletal-Full Range of Motion Bilaterally, No CVAT Extremities-No Cyanosis, No Clubbing, No Edema Nuero-Cranial Nerves II-XII grossly intact, Motor WNL, DTRs WNL, Strength WNL, Non Focal Psych-Normal Mood Physical Exam Vital Signs (Past 24 Hours): Last Vital Signs Temp 36.5 C 07/13/18 11:17 Pulse 67 07/13/18 11:17 Resp 16 07/13/18 11:17 BP 106/54 L 07/13/18 11:17 Pulse Ox 95 07/13/18 11:17 Results & Data Laboratory Results Reviewed
[2018-07-13 11:59] LABS: Hematocrit (blood only) 21.9 % (42-52); Hemoglobin 7.1 g/dL (14.0-18.0)
[2018-07-13 19:19] LABS: Hematocrit (blood only) 23.4 % (42-52); Hemoglobin 7.7 g/dL (14.0-18.0)
[2018-07-13] MEDS: MAGNESIUM OXIDE 400 MG TAB PO SCH (20:12)
[2018-07-13] MEDS: ATORVASTATIN 40 MG TAB PO SCH (20:12)
[2018-07-13] MEDS: POTASSIUM CHLORIDE 20 MEQ TABCR PO SCH (20:13)
[2018-07-13] MEDS: TAMSULOSIN HCL 0.4 MG CAP PO SCH (20:13)
[2018-07-13] MEDS: ONDANSETRON 4 MG TAB PO SCH (20:13)
[2018-07-13] MEDS: CALCIUM CARBONATE 500 MG CHEWABLE TAB PO SCH (20:15)
[2018-07-14 03:18] LABS: Hematocrit (blood only) 22.6 % (42-52); Hemoglobin 7.4 g/dL (14.0-18.0); Mean Corpuscular Hgb Conc 32.7 g/dL (32-36); Mean Corpuscular Volume 89.7 fL (80-100); RDW Coefficient of Variation 17.7 % (11.5-14.5); Red Blood Count 2.52 M/uL (4.7-6.1); White Blood Count 3.24 K/uL (4.8-10.8)
[2018-07-14 03:23] LABS: Mean Platelet Volume 11.5 fL (7.4-10.4); Platelet Count 36 K/uL (130-400)
[2018-07-14 03:35] LABS: Albumin Level 2.1 gm/dl (3.4-5.0); BUN Creatinine Ratio 20.1 (10-20); Calcium 6.9 mg/dl (8.5-10.1); Est GFR (African American) 35.2; Est GFR (Non-African American) 30.4; Potassium 3.4 mmol/L (3.5-5.1)
[2018-07-14 03:38] LABS: Albumin Globulin Ratio 0.8 (0.9-2); Bilirubin,Total 1.1 mg/dl (0.2-1); Globulin 2.5 gm/dl (2.5-4.0); INR 1.3 (0.9-1.1); Partial Thromboplastin Ratio 1.1; Partial Thromboplastin Time 29.6 Seconds (21.0-31.0); Prothrombin Time 13.2 Seconds (9.0-12.0); Total Protein 4.6 gm/dl (6.4-8.2)
[2018-07-14] MEDS: PANTOprazole 40 MG in DEXTROSE 5% 100 ML IV SCH ×2 (03:58→09:10)
[2018-07-14] MEDS: LEVOTHYROXINE SODIUM 75 MCG TABLET PO SCH (05:35)
[2018-07-14] MEDS: ALLOPURINOL 100 MG TAB PO SCH (09:11)
[2018-07-14] MEDS: RIFAXIMIN 550 MG TABLET PO SCH ×2 (09:11→20:52)
[2018-07-14] MEDS: CARVEDILOL 25 MG TAB PO SCH ×2 (09:11→20:52)
[2018-07-14] MEDS: FERROUS SULFATE 325 MG TAB PO SCH ×2 (09:11→13:01)
[2018-07-14] MEDS: ISOSORBIDE MONO EXTENDED REL 30 MG TABCR PO SCH (09:11)
[2018-07-14] MEDS ORDERED: HALOPERIDOL 1 MG TAB PO PRN (09:33)
--- NOTE | 2018-07-14 09:41 | Hospitalist Progress Note ---
Date of Service July 14, 2018 Assessment & Plan (1) Symptomatic anemia: (2) GI bleed: This is a 83yo M with a PMH of cirrhosis 2/2 NAFLD, chronic anemia, persistent A Fib, CKD III, thrombocytopenia, HTN, CAD, hypothyroidism and chronic back pain who presents with dark colored stool and generalized weakness x 3 days. -Recurrent bleed, thought to be 2/2 AVM bleeding, h/o varices s/p banding in October 2016 -Multiple past admissions requiring blood transfusion -Hgb of 6.5 currently (baseline ~8), transfused to 7.6, now 7.4 -Trend H & H -DC PPI drip -Feed PT -GI on case, +BM (3) Elevated troponin: Troponin elevated to 0.073 initially, trending down -h/o NSTEMI in setting of anemia -No CP or ischemic change on EKG , so likely due to demand ischemia -Aspirin has been d/c'd in the setting of persistent bleed -Contine statin (4) Fluid retention: Has also been having mild to moderate fluid retention, multifactorial in etiology, for which he follows with cardiolgy -Currently taking 20mg Lasix daily with Metolazone 2.5mg tab as directed by PCP -Given 40mg IV Lasix in between prbc units -Hold home lasix and metolazone, in setting of ANDRE (5) Acute kidney injury superimposed on chronic kidney disease: Cr elevated at 2.27 (baseline 1.5) Cr 2.o (6) Cirrhosis: No hepatic encephalopathy, ascites -Continue home dose rifaximin (7) Atrial fibrillation: Perisisent A fib, anticoagulation contraindicated due to coagulopathy, thrombocytopenia -Initial EKG with A fib -Cont home dose Coreg (8) 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 Platelets at 44 (baseline) -Continue to monitor -SCDs for ppx (9) BPH (benign prostatic hypertrophy): Continue tamsulosin (10) Hypothyroidism: Continue levothyroxine, Low dose Haldol, DC tele DVT Ppx: SCDs Code status: DNR per advanced directive and discussed with family PCP: Marilynn Al D.O. Dispo: Discharge planning ordered (patient is >80 and lives alone) Subjective This is a 83yo M with a PMH of cirrhosis 2/2 NAFLD, chronic anemia, persistent A Fib, CKD III, thrombocytopenia, HTN, CAD, hypothyroidism and chronic back pain who presents with dark colored stool and generalized weakness x 3 days. Patient's hemoglobin was low at 7 last week, so GI provider arranged for 1 unit PRBC transfusion at [facility]. Since then, daughter has noted that patient seems more weak, tired and has been having frequent dark colored stool. Denies any bright red blood. Follows with Dr. Milian and has a history of chronic anemia 2/2 a persistent GI bleed. 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 Has been admitted multiple times in the past due to symptomatic anemia requiring transfusion. EGD from July 2016 showed non-bleeding esophageal varices and + portal gastropathy as well. Last colonoscopy from November 2015 with AVMs noted as well as diverticulosis. Has also been having mild to moderate fluid retention, multifactorial in etiology, for which he follows with cardiolgy. There have been recent adjustments to diuretics and currently taking 20mg Lasix daily with Metolazone 2.5mg tab as directed by PCP. Also with sodium restriction diet. Patient endorses generalized weakness and fatigue. Denies fever, chills, lightheadedness, headache, confusion, chest pain, palpitation, shortness of breath, nausea, vomiting, abdominal pain, dysuria or constipation. Called to see patient after I saw him this am. He wants to leave, I told him his Hb is too low and he said you have no right to keep me here, He said he wanted his daughter called. ROS-No Headache, No Visual Changes, No Nausea, No Vomiting, No Fever, No Chills, No Neck Pain or Stiffness, No Chest Pain, No Palpitations, No SOB, No POWELL, No Cough, No Sputum, No Wheezing, No Abdominal Pain, No Diarrhea, No Hematemesis, No Hemoptysis, No Unexpected Weight Loss, No Flank pain, No Melena, No Hematochezia, No Frequency, No Urgency, No Burning, No Hematuria, No Rashes, No Diaphoresis. Appetite is Normal Physical Exam Gen-AAO x 3, NAD, Afebrile, [place], Obese, Upset Head-NCAT, EOMI, PERRLA, Anicteric Sclera, No Posterior Pharyngeal Erythema Neck-Supple, No JVD, No Thyromegaly, No Masses, No LAD, No Bruits Lungs-Clear to Auscultation Bilaterally, No Rales, No Rhonchi, No Wheezing, No Crepitus Chest-No S4, +S1, +S2, No S3, No Murmurs, No Rubs, No Gallops, No Ectopy Abdomen-Soft, Obese, Bowel Sounds Present, Non Tender, Non Distended, No Hepatomegaly, No Splenomegaly, No Palpable Masses, No Rebound, No Rigidity, No Guarding Musculoskeletal-Full Range of Motion Bilaterally, No CVAT Extremities-No Cyanosis, No Clubbing, No Edema Nuero-Cranial Nerves II-XII grossly intact, Motor WNL, DTRs WNL, Strength WNL, Non Focal Psych-Agitated Physical Exam Vital Signs (Past 24 Hours): Last Vital Signs Temp 36.4 C L 07/14/18 06:56 Pulse 69 07/14/18 06:56 Resp 16 07/14/18 06:56 BP 127/71 07/14/18 06:56 Pulse Ox 96 07/14/18 06:56 Results & Data Laboratory Results Current Diagnoses Anemia, unspecified (07/12/18) Thrombocytopenia, unspecified (07/12/18) Hypothyroidism, unspecified (07/12/18) Unspecified atrial fibrillation (07/12/18) Esophageal varices without bleeding (07/12/18) Unspecified cirrhosis of liver (07/12/18) Gastrointestinal hemorrhage, unspecified (07/12/18) Acute kidney failure, unspecified (07/12/18) Chronic kidney disease, unspecified (07/12/18) Benign prostatic hyperplasia without lower urinary tract symptoms (07/12/18) Edema, unspecified (07/12/18) Abnormal levels of other serum enzymes (07/12/18) Allergies lisinopril Allergy (Unknown, Verified 07/12/18 19:59) Unknown Height/Weight/Isolation Height 5 ft 8 in Weight 81 kg Chemistry 07/12/18 07/13/18 07/14/18 18:00 05:24 03:06 Sodium 144 145 143 Potassium 3.7 3.7 3.4 L Chloride 109 H 111 H 111 H Carbon Dioxide 26 27 26 Anion Gap 8.0 8.0 6.0 BUN 55 H 48 H 40 H Creatinine 2.27 H 2.16 H 2.00 H Glucose 113 H 100 H 85 Urinalysis 07/13/18 00:06 Urine Color Yellow Urine Appearance Clear Urine pH 7.0 Ur Specific [place] 1.010 Urine Protein Negative Urine Glucose (UA) Negative Urine Ketones Negative Urine Blood Negative Urine Nitrite Negative Urine Bilirubin Negative
[2018-07-14] MEDS ORDERED: metOLazone 2.5 MG TABLET PO PRN (11:28)
[2018-07-14] MEDS: PANTOprazole 40 MG TAB PO SCH ×2 (13:01→20:52)
--- NOTE | 2018-07-14 13:36 | Progress Note ---
Date of Service July 14, 2018 Assessment & Plan (1) Noncompliance with treatment: Requested to see patient for acting out against nursing. I am unable to completely asses the patient due to his refusal to participate. I cannot say whether he is disoriented (nursing reports he got all orientation questions correct this AM) or reality based, but clearly showing poor judgment about treatment including his refusal to talk with me. Nursing reports that he has a history of similar behaviors in the past. I have asked his attending if he wants to me to attempt again tomorrow or whether he has another question he wants me to attend to from a psychiatric point of view. I await his response. Subjective Attempted to see the patient this AM for consult requested to see patient for poor insight and acting out against RN's. The patient was lying in bed on his rt side with his eyes closed. He was alert and initially responded to my questions about his identity, but refused to open his eyes. He then refused to provide any information in response to questions pertaining to orientation, anxiety, or treatment. He says that he doesn't need transfusions, and that he didn't want to accept any treatment until he saw his daughter. His nurse had attempted, but at first had no success. He said that his mood is "terrible" because he isn't able to see his daughter. I again attempt orientation questions and he clearly says he will not cooperative with anything I want because I will not produce his daughter for his. Physical Exam Vital Signs (Past 24 Hours): Last Vital Signs Temp 36.6 C 07/14/18 11:20 Pulse 69 07/14/18 06:56 Resp 18 07/14/18 11:20 BP 126/69 07/14/18 11:20 Pulse Ox 67 L 07/14/18 11:20 Psychiatric: Orientation: alert; + uncooperative Apperance: appropriately dressed Motor Behavior: no abnormal motor movements Speech: normal rate/rhythm/volume of speech (irritable) Affect: + flat affect Mood: + irritable mood ("terrible") Thought Process: + perseveration (about seeing daughter) Insight: + impaired insight Judgement: + impaired judgement
[2018-07-14] MEDS: ACETAMINOPHEN 325 MG TAB PO PRN ×2 (14:13→18:57)
--- NOTE | 2018-07-14 14:30 | Gastroenterology Progress Note ---
Date of Service July 14, 2018 Assessment & Plan (1) GI bleed: Will check NH3 level - would suggest starting lactulose if elevated. If NH3 is normal, would consider looking for a possible infectious source causing AMS. Continue xifaxan BID as current. Labs continue to be stable otherwise. Mon itor HGB. Continue oral PPI. Monitor and correct electrolytes. No plans at this time for endoscopic evaluation. (2) Cirrhosis: (3) Esophageal varices: Supervising Physician Co-Signing Physician Notes I have personally seen and examined the patient with Natalie Valdovinos PA-C. Her note reflects my exam and findings. I agree with her impression and plan. He put several pills into his bed and seems to be having some change in mental status either related to sun downing or encephalopathy. Check ammonia level and if elevated add lactulose. Supervise his pill taking. Discussed with daughter as well at bedside. Riccardo Johnson M.D. Subjective Attempted to see the patient this morning, however he was combative and argumentative with the nurses, and he refused to speak with me. Rounded later with physician and he appears somewhat lethargic, not as angry, but still not very willing to discuss his symptoms. He has a hx of cirrhosis and according to the nurse, several pills were found in his bed earlier today, so he may have missed a dose or two of his xifaxan, causing HE. Labs show a stable Hgb of 7.4. Mild hypokalemia of 3.4. ROS: Unable to obtain as patient not cooperative. Physical Exam Vital Signs (Past 24 Hours): Last Vital Signs Temp 36.6 C 07/14/18 11:20 Pulse 69 07/14/18 06:56 Resp 18 07/14/18 11:20 BP 126/69 07/14/18 11:20 Pulse Ox 67 L 07/14/18 11:20 Constitutional: Patient would not cooperate for physical examination Results & Data Laboratory Results Laboratory Results - last 24 hr 07/13/18 07/14/18 07/14/18 19:10 03:06 03:06 WBC 3.24 L RBC 2.52 L Hgb 7.7 L 7.4 L Hct 23.4 L 22.6 L MCV 89.7 MCH 29.4 MCHC 32.7 RDW Std Deviation 56.0 H RDW Coeff of Erick 17.7 H Plt Count 36 L MPV 11.5 H PT 13.2 H INR 1.3 H APTT 29.6 PTT Ratio 1.1 Sodium Potassium Chloride Carbon Dioxide Anion Gap BUN Creatinine Est Cr Clr Drug Dosing Est GFR ( Amer) Est GFR (Non-Af Amer) BUN/Creatinine Ratio Glucose Calcium Total Bilirubin AST ALT Alkaline Phosphatase Total Protein Albumin Globulin Albumin/Globulin Ratio 07/14/18 03:06 WBC RBC Hgb Hct MCV MCH MCHC RDW Std Deviation RDW Coeff of Erick Plt Count MPV PT INR APTT PTT Ratio Sodium 143 Potassium 3.4 L Chloride 111 H Carbon Dioxide 26 Anion Gap 6.0 BUN 40 H Creatinine 2.00 H Est Cr Clr Drug Dosing 28.0 Est GFR ( Amer) 35.2 Est GFR (Non-Af Amer) 30.4 BUN/Creatinine Ratio 20.1 H Glucose 85 Calcium 6.9 L Total Bilirubin 1.1 H AST 34 ALT 18 Alkaline Phosphatase 74 Total Protein 4.6 L Albumin 2.1 L Globulin 2.5 Albumin/Globulin Ratio 0.8 L (1) GI bleed GI bleed type/associated pathology: unspecified gastrointestinal hemorrhage type Qualified Code(s): K92.2 - Gastrointestinal hemorrhage, unspecified
[2018-07-14] MEDS: CALCIUM CARBONATE 500 MG CHEWABLE TAB PO SCH ×2 (20:51→21:00)
[2018-07-14] MEDS: TAMSULOSIN HCL 0.4 MG CAP PO SCH (20:52)
[2018-07-14] MEDS: MAGNESIUM OXIDE 400 MG TAB PO SCH (20:52)
[2018-07-14] MEDS: POTASSIUM CHLORIDE 20 MEQ TABCR PO SCH (20:52)
[2018-07-14] MEDS: ATORVASTATIN 40 MG TAB PO SCH (20:52)
[2018-07-14] MEDS ORDERED: OLANZapine 10 MG/2.1 ML SDV IM PRN (20:57)
[2018-07-15] MEDS: ACETAMINOPHEN 325 MG TAB PO PRN ×2 (01:07→08:36)
[2018-07-15] MEDS: LEVOTHYROXINE SODIUM 75 MCG TABLET PO SCH (06:01)
[2018-07-15] MEDS: CARVEDILOL 25 MG TAB PO SCH ×2 (08:36→22:01)
[2018-07-15] MEDS: ISOSORBIDE MONO EXTENDED REL 30 MG TABCR PO SCH (08:36)
[2018-07-15] MEDS: RIFAXIMIN 550 MG TABLET PO SCH ×2 (08:37→22:04)
[2018-07-15] MEDS: FERROUS SULFATE 325 MG TAB PO SCH (08:37)
[2018-07-15] MEDS: PANTOprazole 40 MG TAB PO SCH ×2 (08:37→22:03)
[2018-07-15] MEDS: FUROSEMIDE 20 MG TAB PO SCH (08:37)
[2018-07-15 08:51] LABS: Hematocrit (blood only) 25.4 % (42-52); Hemoglobin 8.3 g/dL (14.0-18.0); Mean Corpuscular Hgb Conc 32.7 g/dL (32-36); Mean Corpuscular Volume 90.4 fL (80-100); RDW Coefficient of Variation 17.7 % (11.5-14.5); RDW Standard Deviation 58.2 fL (36.4-46.3); Red Blood Count 2.81 M/uL (4.7-6.1); White Blood Count 2.64 K/uL (4.8-10.8)
[2018-07-15 09:00] LABS: Platelet Count 34 K/uL (130-400)
[2018-07-15 09:26] LABS: BUN Creatinine Ratio 15.4 (10-20); Calcium 7.4 mg/dl (8.5-10.1); Creatinine Clr Calc Pharmacy 29.3 ml/min; Est GFR (African American) 37.2; Est GFR (Non-African American) 32.1; Potassium 3.4 mmol/L (3.5-5.1)
[2018-07-15] MEDS: LACTULOSE SYRUP 30 GM/45 ML UDP PO SCH ×2 (10:11→21:58)
--- NOTE | 2018-07-15 12:41 | Gastroenterology Progress Note ---
Date of Service July 15, 2018 Assessment & Plan (1) Esophageal varices: (2) Cirrhosis: (3) GI bleed: Pt is a 83 year old male with a hx of cryptogenic cirrhosis, NAFLD, esophageal varices, multiple colonic AVMs, Afib, CKD and HTN, admitted with suspected anemia and melena. Hgb was 7.6 on presentation, increasing up to 8s since given 3U PRBC transfusions. Per RN report no signs of melena or N/V. He is currently confused, and uncooperative w exam. ? pills found on bed thus not sure if taking Xifaxan or not. NH3 normal. He is had 2 BMs yesterday. AMS workup - negative CT head; normal UA and unremarkable CXR. - Would check blood cx to complete infection workup which may cause confusion in cirrhotics. - Add Lactulose 30g BID, continue Xifaxan 550mg BID - Continue Protonix 40mg BID - Will follow along. - I attempted to reach his daughter but went straight to message "voicemail not set up". Supervising Physician Co-Signing Physician Notes I have personally seen and examined the patient with PHYLLIS Dumas. Her note reflects my exam and findings. I agree with her impression and plan. Mental status improved. Ammonia normal. Riccardo Johnson M.D. Subjective Pt was awake, holding and pressing remote. However as I walked in and introduced myself he said "you should be ", then closed his eyes. Would not answer any questions or follow any commands for the rest of my visit. I attempted to call his daughter (Soila) - went to automatic message that said voicemail isn't set up. Physical Exam Vital Signs (Past 24 Hours): Last Vital Signs Temp 36.7 C 07/15/18 07:58 Pulse 72 07/15/18 07:58 Resp 20 07/15/18 07:58 BP 166/88 H 07/15/18 07:58 Pulse Ox 95 07/15/18 07:58 Constitutional: WD/WN, vitals as above well groomed, cooperative and comfortable Eyes: PERRL, conjunctivae normal, anicteric sclerae ENMT: external ear and nose normal, oropharynx normal Respiratory: normal respiratory effort, lungs clear to auscultation Cardiovascular: RRR, no murmur, no edema Gastrointestinal (Abdomen): normal bowel sounds, soft, nontender, no hepatosplenomegaly Skin: no rashes, warm and dry no jaundice Neurologic: Motor/Sensory: + asterixis Psychiatric: See "subjective" section above. Lymphatic: no lymphedema (1) GI bleed GI bleed type/associated pathology: unspecified gastrointestinal hemorrhage type Qualified Code(s): K92.2 - Gastrointestinal hemorrhage, unspecified
--- NOTE | 2018-07-15 21:43 | Hospitalist Progress Note ---
Date of Service July 15, 2018 Assessment & Plan (1) Symptomatic anemia: (2) GI bleed: Recurrent bleed, thought to be 2/2 AVM bleeding, h/o varices s/p banding in October 2016 Multiple past admissions requiring blood transfusion Hgb of 6.5 currently (baseline ~8), transfused to 7.6, now 7.4 Received 2 units PRBC during this hospital course Hemoglobin 8.3 today GI on board Continue PPI BID Monitor H/h (3) Elevated troponin: Mostly due to demand ischemia Troponin elevated to 0.073 initially, trending down -h/o NSTEMI in setting of anemia -No CP or ischemic change on EKG -Aspirin has been d/c'd in the setting of persistent bleed -Continue statin and carvedilol (4) Fluid retention: -Has also been having mild to moderate fluid retention, multifactorial in etiology, for which he follows with cardiolgy -Currently taking 20mg Lasix daily with Metolazone 2.5mg tab as directed by PCP - lasix and metolazone resumed -Monitor BMP (5) Acute kidney injury superimposed on chronic kidney disease: Cr elevated at 2.27 (baseline 1.5) Cr 1.9 Monitor BMP (6) Cirrhosis: No hepatic encephalopathy, ascites -Continue home dose rifaximin and lactulose - GI on board (7) Atrial fibrillation: Perisisent A fib, anticoagulation contraindicated due to coagulopathy, thrombocytopenia -Initial EKG with A fib -Cont home dose Coreg (8) 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 Platelets stable -Continue to monitor -SCDs for ppx (9) BPH (benign prostatic hypertrophy): Continue tamsulosin (10) Hypothyroidism: Continue levothyroxine, Low dose Haldol, DC tele DVT Ppx: SCDs Due to GI bleed Code status: DNR Dispo: Waiting for placement Subjective Pt was seen and examined Sitting in bed with no distress Pt said that he feels fine Denies any chest pain, palpitation, dizziness and SOB Physical Exam Vital Signs (Past 24 Hours): Last Vital Signs Temp 36.3 C L 07/15/18 14:51 Pulse 65 07/15/18 14:51 Resp 16 07/15/18 14:51 BP 109/68 07/15/18 14:51 Pulse Ox 97 07/15/18 14:51 Physical Exam: General- No acute distress Head- atraumatic Eyes- PERRL, EOMI, ENT- oropharynx clear Neck- supple, no JVD Lungs- clear to auscultation Heart- regular rhythm Abdomen- normal bowel sounds, soft, nontender Extremities- no calf tenderness Neuro- alert, oriented, PERRL, EOMI; no facial palsy; no dysarthria Skin- warm & dry
[2018-07-15] MEDS: POTASSIUM CHLORIDE 20 MEQ TABCR PO SCH (22:01)
[2018-07-15] MEDS: TAMSULOSIN HCL 0.4 MG CAP PO SCH (22:01)
[2018-07-15] MEDS: ATORVASTATIN 40 MG TAB PO SCH (22:02)
[2018-07-15] MEDS: MAGNESIUM OXIDE 400 MG TAB PO SCH (22:03)
[2018-07-15] MEDS: CALCIUM CARBONATE 500 MG CHEWABLE TAB PO SCH (22:04)
[2018-07-16] MEDS: LEVOTHYROXINE SODIUM 75 MCG TABLET PO SCH (06:10)
[2018-07-16 09:26] LABS: BUN Creatinine Ratio 14.3 (10-20); Calcium 7.6 mg/dl (8.5-10.1); Est GFR (African American) 35.2; Est GFR (Non-African American) 30.4; Potassium 3.4 mmol/L (3.5-5.1)
[2018-07-16] MEDS: PANTOprazole 40 MG TAB PO SCH ×2 (09:51→20:04)
[2018-07-16] MEDS: CARVEDILOL 25 MG TAB PO SCH ×2 (09:51→20:03)
[2018-07-16] MEDS: ALLOPURINOL 100 MG TAB PO SCH (09:51)
[2018-07-16] MEDS: ISOSORBIDE MONO EXTENDED REL 30 MG TABCR PO SCH (09:52)
[2018-07-16] MEDS: FUROSEMIDE 20 MG TAB PO SCH (09:52)
[2018-07-16] MEDS: FERROUS SULFATE 325 MG TAB PO SCH (09:52)
[2018-07-16] MEDS: RIFAXIMIN 550 MG TABLET PO SCH ×2 (09:52→20:00)
[2018-07-16 10:25] LABS: Hematocrit (blood only) 25.3 % (42-52); Hemoglobin 8.3 g/dL (14.0-18.0); Mean Corpuscular Hgb Conc 32.8 g/dL (32-36); Mean Corpuscular Volume 90.4 fL (80-100); Mean Platelet Volume 12.6 fL (7.4-10.4); Platelet Count 38 K/uL (130-400); RDW Coefficient of Variation 17.5 % (11.5-14.5); RDW Standard Deviation 57.5 fL (36.4-46.3); White Blood Count 3.92 K/uL (4.8-10.8)
[2018-07-16] MEDS ORDERED: POTASSIUM CHLORIDE 20 MEQ TABCR PO ONE (11:30)
[2018-07-16] MEDS: LACTULOSE SYRUP 30 GM/45 ML UDP PO SCH (11:43)
--- NOTE | 2018-07-16 11:45 | Gastroenterology Progress Note ---
Date of Service July 16, 2018 Assessment & Plan (1) Esophageal varices: (2) Cirrhosis: (3) GI bleed: Pt is a 83 year old male with a hx of cryptogenic cirrhosis, NAFLD, esophageal varices, multiple colonic AVMs, Afib, CKD and HTN, admitted with suspected anemia and melena. Hgb was 7.6 on presentation, increasing up to 8s since given 3U PRBC transfusions. Per RN report no signs of melena or N/V. AMS workup - negative CT head; normal UA and unremarkable CXR. ? pills found on bed thus not sure if taking Xifaxan or not. NH3 normal. Yesterday Lactulose added. Mental status significantly improved. Though he reports diarrhea through the night w some rectal bleeding. H/H stable. - Decrease Lactulose to 15g BID (titrate for goal BM 3-5x a day), continue Xifaxan 550mg BID - Continue Protonix 40mg BID - GI to sign off; call if new questions/concerns arise. Supervising Physician Co-Signing Physician Notes I have personally seen and examined the patient with PHYLLIS Dumas. Her note reflects my exam and findings. I agree with her impression and plan. Still struggling with "weird thoughts". At this point would work up for FITNESS DIRECTOR or Psych issues. Discussed with daughter at bedside as well. Riccardo Johnson M.D. Subjective Pt awake, oriented mostly to place and self. Very pleasant, answering questions appropriately. He is c/o several bouts of diarrhea overnight, w some rectal bleeding due to frequent BM. H/H stable. Denies any abd pain, n/v. Physical Exam Vital Signs (Past 24 Hours): Last Vital Signs Temp 36.8 C 07/16/18 07:13 Pulse 78 07/16/18 09:47 Resp 14 07/16/18 07:13 BP 113/76 07/16/18 09:47 Pulse Ox 97 07/16/18 07:13 Constitutional: WD/WN, vitals as above well groomed, cooperative and comfortable Eyes: PERRL, conjunctivae normal, anicteric sclerae ENMT: external ear and nose normal, oropharynx normal Respiratory: normal respiratory effort, lungs clear to auscultation Cardiovascular: RRR, no murmur, no edema Gastrointestinal (Abdomen): normal bowel sounds, soft, nontender, no hepatosplenomegaly Skin: no rashes, warm and dry no jaundice Neurologic: Motor/Sensory: no asterixis Psychiatric: Orientation: alert, oriented to person, oriented to place and cooperative Lymphatic: no lymphedema Results & Data Laboratory Results Laboratory Results - last 48 hr 07/14/18 07/15/18 07/15/18 14:17 08:25 08:25 WBC 2.64 L RBC 2.81 L Hgb 8.3 L Hct 25.4 L MCV 90.4 MCH 29.5 MCHC 32.7 RDW Std Deviation 58.2 H RDW Coeff of Erick 17.7 H Plt Count 34 L MPV 11.0 H Sodium 144 Potassium 3.4 L Chloride 113 H Carbon Dioxide 25 Anion Gap 6.0 BUN 30 H Creatinine 1.91 H Est Cr Clr Drug Dosing 29.3 Est GFR ( Amer) 37.2 Est GFR (Non-Af Amer) 32.1 BUN/Creatinine Ratio 15.4 Glucose 87 Calcium 7.4 L Ammonia 27.0 07/16/18 07/16/18 08:22 08:25 WBC 3.92 L RBC 2.80 L Hgb 8.3 L Hct 25.3 L MCV 90.4 MCH 29.6 MCHC 32.8 RDW Std Deviation 57.5 H RDW Coeff of Erick 17.5 H Plt Count 38 L MPV 12.6 H Sodium 147 H Potassium 3.4 L Chloride 117 H Carbon Dioxide 23 Anion Gap 7.0 BUN 29 H Creatinine 2.00 H Est Cr Clr Drug Dosing 28.0 Est GFR ( Amer) 35.2 Est GFR (Non-Af Amer) 30.4 BUN/Creatinine Ratio 14.3 Glucose 95 Calcium 7.6 L Ammonia (1) GI bleed GI bleed type/associated pathology: unspecified gastrointestinal hemorrhage type Qualified Code(s): K92.2 - Gastrointestinal hemorrhage, unspecified
[2018-07-16] MEDS: LACTULOSE SYRUP 10 GM/15 ML BTL 473 ML PO SCH ×2 (13:07→20:24)
[2018-07-16] MEDS: MAGNESIUM OXIDE 400 MG TAB PO SCH (20:00)
[2018-07-16] MEDS: TAMSULOSIN HCL 0.4 MG CAP PO SCH (20:00)
[2018-07-16] MEDS: CALCIUM CARBONATE 500 MG CHEWABLE TAB PO SCH (20:01)
[2018-07-16] MEDS: POTASSIUM CHLORIDE 20 MEQ TABCR PO SCH (20:02)
[2018-07-16] MEDS: ATORVASTATIN 40 MG TAB PO SCH (20:03)
[2018-07-16] MEDS ORDERED: LACTULOSE SYRUP 10 GM/15 ML BTL 473 ML PO SCH (21:00)
[2018-07-16] MEDS: ACETAMINOPHEN 325 MG TAB PO PRN (21:36)
--- NOTE | 2018-07-16 22:16 | Hospitalist Progress Note ---
Date of Service July 16, 2018 Assessment & Plan (1) Symptomatic anemia: (2) GI bleed: Recurrent bleed, thought to be 2/2 AVM bleeding, h/o varices s/p banding in October 2016 Multiple past admissions requiring blood transfusion Hgb of 6.5 currently (baseline ~8), transfused to 7.6, now 7.4 Received 2 units PRBC during this hospital course Hemoglobin 8.3 today (stable) GI on board Continue PPI BID Monitor H/h (3) Confusion: Mostly due to delirium back to baseline Daughter does not want to take him home because pt lives alone and does not have 24hr care Insurance denies any inpt placement Recommend Home with home health Daughter said that pt has suicidal thoughts (Did not mention that until today because she would like him to stay in the psych unit) Will consult psych She said that she would take him right back to the hospital because pt cannot care for himself until she finds placement for him (4) Elevated troponin: Mostly due to demand ischemia Troponin elevated to 0.073 initially, trending down -h/o NSTEMI in setting of anemia -No CP or ischemic change on EKG -Aspirin has been d/c'd in the setting of persistent bleed -Continue statin and carvedilol (5) Fluid retention: -Has also been having mild to moderate fluid retention, multifactorial in etiology, for which he follows with cardiolgy -Currently taking 20mg Lasix daily with Metolazone 2.5mg tab as directed by PCP - lasix and metolazone resumed -Monitor BMP (6) Acute kidney injury superimposed on chronic kidney disease: Cr elevated at 2.27 (baseline 1.5) Cr 1.9 Monitor BMP (7) Cirrhosis: No hepatic encephalopathy, ascites -Continue home dose rifaximin and lactulose - GI on board (8) Atrial fibrillation: Perisisent A fib, anticoagulation contraindicated due to coagulopathy, thrombocytopenia -Initial EKG with A fib -Cont home dose Coreg (9) 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 Platelets stable -Continue to monitor -SCDs for ppx (10) BPH (benign prostatic hypertrophy): Continue tamsulosin (11) Hypothyroidism: Continue levothyroxine, Low dose Haldol, DC tele DVT Ppx: SCDs Due to GI bleed Code status: DNR Dispo: Will discharge home with home health Ins denies inpatient placement Subjective Pt was seen and examined Sitting in chair with no distress Pt feels much better today He is very calm and back to his baseline Insurance denies any SNF or rehab for placement Peer to peer done, he does not meet criteria for placement Spoke to daughter and she does not feels comfort to take him home Daughter request for patient to be seen by psych to consider inpatient therapy made it clear that pt will not meet inpatient criteria for psych for intermittent confusion I explained to daughter that confusion mostly related to delirium and liver dx I told the nurse that only reason that she will meet inpatient criteria if pt is having any suicidal thought Daughter said that pt is hearing voices and having suicidal thoughts (never mentioned that before after she found out if pt is suicidal she might qualify for inpt psych therapy) Daughter does not want to take him home since pt lives alone She said that she would take him right back to the hospital because pt cannot care for himself now until she finds placement for him Physical Exam Vital Signs (Past 24 Hours): Last Vital Signs Temp 36.2 C L 07/16/18 15:19 Pulse 70 07/16/18 19:59 Resp 16 07/16/18 15:19 BP 117/69 07/16/18 19:59 Pulse Ox 98 07/16/18 15:19 Physical Exam: General- No acute distress Head- atraumatic Eyes- PERRL, EOMI, ENT- oropharynx clear Neck- supple, no JVD Lungs- clear to auscultation Heart- regular rhythm; no murmur Abdomen- normal bowel sounds, soft, nontender Extremities- no calf tenderness Neuro- alert, oriented x 3; PERRL, EOMI; no facial palsy; no dysarthria Skin- warm & dry
[2018-07-17] MEDS: LEVOTHYROXINE SODIUM 75 MCG TABLET PO SCH (06:20)
[2018-07-17 07:51] LABS: Hematocrit (blood only) 23.6 % (42-52); Hemoglobin 7.6 g/dL (14.0-18.0); Mean Corpuscular Hgb Conc 32.2 g/dL (32-36); Mean Corpuscular Volume 90.1 fL (80-100); RDW Coefficient of Variation 17.4 % (11.5-14.5); RDW Standard Deviation 57.7 fL (36.4-46.3); Red Blood Count 2.62 M/uL (4.7-6.1); White Blood Count 3.23 K/uL (4.8-10.8)
[2018-07-17 08:18] LABS: Mean Platelet Volume 10.8 fL (7.4-10.4); Platelet Count 33 K/uL (130-400); Platelet Estimate SIGNIFIC DECREASED (Normal)
[2018-07-17 08:20] LABS: BUN Creatinine Ratio 13.6 (10-20); Calcium 7.4 mg/dl (8.5-10.1); Creatinine Clr Calc Pharmacy 28.3 ml/min; Est GFR (African American) 35.7; Est GFR (Non-African American) 30.8; Potassium 3.6 mmol/L (3.5-5.1)
[2018-07-17] MEDS: PANTOprazole 40 MG TAB PO SCH (08:39)
[2018-07-17] MEDS: LACTULOSE SYRUP 10 GM/15 ML BTL 473 ML PO SCH (08:39)
[2018-07-17] MEDS: RIFAXIMIN 550 MG TABLET PO SCH (08:39)
[2018-07-17] MEDS: ISOSORBIDE MONO EXTENDED REL 30 MG TABCR PO SCH (08:40)
[2018-07-17] MEDS: FUROSEMIDE 20 MG TAB PO SCH (08:40)
[2018-07-17] MEDS: CARVEDILOL 25 MG TAB PO SCH (08:40)
[2018-07-17] MEDS: FERROUS SULFATE 325 MG TAB PO SCH (08:40)
[2018-07-17] MEDS: ACETAMINOPHEN 325 MG TAB PO PRN (15:08)
--- NOTE | 2018-07-17 15:57 | Psychiatric Progress Note ---
Date of Service July 17, 2018 Impression / Recommendations (1) Noncompliance with treatment: Pt initially evaluated on 07/14/18 to address his behavior toward staff at admission. He was unwilling to participate at that time, but today is remorseful for his behavior and apologizes stating "now I'm a little more myself again." Given noncompliance with treatment and interview on 07/14/18 - we were unable to offer constructive recommendations to address behavior and requested contact with any further questions or concerns. Re-assessment was requested given reports of suicidal comments by daughter. Upon interview, patient is denying SI or any intent to take active steps to harm himself. He states he is waiting for natural , but has come to terms with the idea of passing. Pt states he has not struggled with suicidality previously and has not plan or intent to end his life. Given significant improvement in behavior, and lack of safety or psychiatric concerns, there seems to be no criteria to recommend more intensive psychiatric treatment. Would not recommend inpatient psychiatric hospitalization. Dr. Skinny Banks was directly involved in review and discussion of the patient's case and participated in medical decision making regarding treatment recommendations. Interval History Identifying Information 83-year-old male admitted medically for dark stool and generalized weakness. Psychiatric service initially consulted on 07/14/18 to assess for "poor insight and acting out against RNs." Evaluation attempt was completed by PHYLLIS Conley on 07/14/18. Pt was uncooperative with assessment at that time. Given lack of willingness to participate in evaluation, no constructive recommendations could be made. Since then, these behaviors have resolved. We are asked to re- evaluate today to address reports from daughter that patient has verbalized suicidal statements. Information is gathered from the patient, who is cooperative with assessment. Chief Complaint "I'm feeling a lot better. In some pain today because I keep having to get up and walk to the bathroom". Review of Systems Notes Constitutional: reports weakness Cardiovascular: denied Respiratory: denied Gastrointestinal: denied Neurological: reports back pain Psychiatric: denies symptoms other than stated above Total of at least 10 systems reviewed, pertinent positives as above and in HPI. Subjective Subjective Patient was seen & assessed and interval progress reviewed with psychiatric liaison. Reviewed request from attending physician that patient be re-evaluated for suicidality, per reports from daughter. Pt was seen today to assess risk factors which may interfere with current plan of transfer back to his residence upon medical clearance. We had received reports from patient's daughter that s he was concerned about statements made by the patient, suggesting a desire to . Pt was agreeable with participating in a conversation regarding these thoughts. He does admit to being in pain and states he is troubled by being so far away from his daughter while he is in the hospital. We discussed any concerns he may have regarding going home, with hopeful transfer to the assisted living area of [facility]. Pt states, "I feel great about this, I just want to be close to my daughter and grandchildren." He denies symptoms of anxiety or depression at this time. He initiates the conversation regarding suicidality and states, "they asked if I was suicidal, I said 'I am, but I'm not. I asked the good Lord to take me." Pt states he has not intention to harm himself and no plan he has considered. He denies any suicidal thoughts prior to admission and states, "I'm not anywhere near considering to hurt myself." He continues to verbalize desire to be strong enough to return home. Pt denies other safety or psychiatric concerns which would warrant more intensive psychiatric treatment. Physical Exam Psychiatric Orientation: alert, oriented x 3 and cooperative Apperance: appropriately dressed (in hospital gown covered with sweater, well- trimmed hair and roberts) and appropriately groomed Eye Contact: good eye contact Motor Behavior: no abnormal motor movements (observed while sitting next to bed) Speech: normal rate/rhythm/volume of speech Affect: + tearful affect (when talking about daughter and grandchildren) appears dulled, but not overtly depressed "a lot better" Thought Process: goal directed thought process, linear/logical thought process and clear/coherent thought process Thought Content: reality based without delusions Suicidal Thoughts: denies suicidal thoughts Homicidal Thoughts: denies homicidal thoughts Hallucinations: no auditory hallucinations and no visual hallucinations Cognition: recent memory grossly intact, attention grossly intact and language grossly intact Estimated Intelligence: consistent with education level Insight: good insight Judgement: good judgement Vital Signs (Past 24 Hours) Last Vital Signs Temp 36.4 C L 07/17/18 15:07 Pulse 64 07/17/18 15:07 Resp 16 07/17/18 15:07 BP 100/55 L 07/17/18 15:07 Pulse Ox 98 07/17/18 15:07 Results & Data Laboratory Results Laboratory Results - last 24 hr 07/17/18 07/17/18 07:38 07:38 WBC 3.23 L RBC 2.62 L Hgb 7.6 L Hct 23.6 L MCV 90.1 MCH 29.0 MCHC 32.2 RDW Std Deviation 57.7 H RDW Coeff of Erick 17.4 H Plt Count 33 L MPV 10.8 H Platelet Estimate SIGNIFIC DECREASED Sodium 147 H Potassium 3.6 Chloride 117 H Carbon Dioxide 24 Anion Gap 6.0 BUN 27 H Creatinine 1.98 H Est Cr Clr Drug Dosing 28.3 Est GFR ( Amer) 35.7 Est GFR (Non-Af Amer) 30.8 BUN/Creatinine Ratio 13.6 Glucose 81 Calcium 7.4 L Current Inpatient Medications Current Inpatient Medications: Current Inpatient Medications Acetaminophen (Tylenol) 650 mg PO Q4H PRN PRN Reason: Pain or Fever Stop: 08/11/18 21:48 Last Admin: 07/17/18 15:08 Dose: 650 mg Documented by: Allopurinol (Zyloprim) 100 mg PO Q2D@0900 [facility] Stop: 08/13/18 08:59 Last Admin: 07/16/18 09:51 Dose: 100 mg Documented by: Atorvastatin Calcium (Lipitor) 40 mg PO [facility] Stop: 08/11/18 22:59 Last Admin: 07/16/18 20:03 Dose: 40 mg Documented by: Calcium Carbonate (Tums) 2,000 mg PO HS [facility] Stop: 08/11/18 22:59 Last Admin: 07/16/18 20:01 Dose: 2,000 mg Documented by: Carvedilol (Coreg) 25 mg PO BID [facility] Stop: 08/11/18 22:59 Last Admin: 07/17/18 08:40 Dose: 25 mg Documented by: Ferrous Sulfate (Feosol) 325 mg PO DAILY [facility] Stop: 08/12/18 08:59 Last Admin: 07/17/18 08:40 Dose: 325 mg Documented by: Furosemide (Lasix) 20 mg PO DAILY [facility] Stop: 08/14/18 08:59 Last Admin: 07/17/18 08:40 Dose: 20 mg Documented by: Haloperidol (Haldol) 1 mg PO Q8H PRN PRN Reason: Agitation Stop: 08/13/18 09:32 Hydralazine HCl (Apresoline) 25 mg PO TID [facility] Stop: 08/11/18 22:59 Last Admin: 07/17/18 15:08 Dose: Not Given Documented by: Isosorbide Mononitrate (Imdur Extended Rel) 30 mg PO QAM [facility] Stop: 08/12/18 08:59 Last Admin: 07/17/18 08:40 Dose: 30 mg Documented by: Lactulose (Chronulac) 15 gm PO BID [facility] Stop: 08/15/18 11:59 Last Admin: 07/17/18 08:39 Dose: 15 gm Documented by: Levothyroxine Sodium (Synthroid) 75 mcg PO DAILYBB [facility] Stop: 08/12/18 06:29 Last Admin: 07/17/18 06:20 Dose: Not Given Documented by: Magnesium Oxide (Mag-Ox) 400 mg PO QPM [facility] Stop: 08/11/18 22:59 Last Admin: 07/16/18 20:00 Dose: 400 mg Documented by: Metolazone (Zaroxolyn) 2.5 mg PO DAILY PRN PRN Reason: Fluid Retention Stop: 08/13/18 11:27 Olanzapine (Zyprexa) 2.5 mg IM Q4H PRN PRN Reason: Anxiety/Agitation Stop: 08/13/18 20:56 Oxycodone HCl (Roxicodone Immediate Rel) 5 mg PO TID PRN PRN Reason: Pain Stop: 07/26/18 21:48 Last Admin: 07/13/18 20:11 Dose: 5 mg Documented by: Pantoprazole Sodium (Protonix) 40 mg PO BID [facility] Stop: 08/13/18 11:29 Last Admin: 07/17/18 08:39 Dose: 40 mg Documented by: Potassium Chloride (Klor-Con M20) 20 meq PO QPM [facility] Stop: 08/11/18 22:59 Last Admin: 07/16/18 20:02 Dose: 20 meq Documented by: Rifaximin (Xifaxan) 550 mg PO BID [facility] Stop: 08/11/18 22:59 Last Admin: 07/17/18 08:39 Dose: 550 mg Documented by: Tamsulosin HCl (Flomax) 0.4 mg PO QPM [facility] Stop: 08/11/18 22:59 Last Admin: 07/16/18 20:00 Dose: 0.4 mg Documented by: CPT Code CPT Code 92386
[2018-07-17 16:06] LABS: Hematocrit (blood only) 25.7 % (42-52); Hemoglobin 8.3 g/dL (14.0-18.0)
--- NOTE | 2018-07-17 18:10 | Hospitalist Progress Note ---
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, h/o varices s/p banding in October 2016 Multiple past admissions requiring blood transfusion Hgb of 6.5 currently (baseline ~8), transfused to 7.6, now 7.4 Received 2 units PRBC during this hospital course repeat Hemoglobin 8.3 today (stable) GI on board Continue PPI BID Monitor H/h (3) Confusion: Mostly due to delirium back to baseline Daughter does not want to take him home because pt lives alone and does not have 24hr care Insurance denies any inpt placement Recommend Home with home health Daughter said that pt has suicidal thoughts (Did not mention that until today because she would like him to stay in the psych unit) She said that she would take him right back to the hospital because pt cannot care for himself until she finds placement for him Psych on board, no indication for inpatient psych treatment Stable (4) Elevated troponin: Mostly due to demand ischemia Troponin elevated to 0.073 initially, trending down -h/o NSTEMI in setting of anemia -No CP or ischemic change on EKG -Aspirin has been d/c'd in the setting of persistent bleed -Continue statin and carvedilol (5) Fluid retention: -Has also been having mild to moderate fluid retention, multifactorial in etiology, for which he follows with cardiolgy -Currently taking 20mg Lasix daily with Metolazone 2.5mg tab as directed by PCP - lasix and metolazone resumed -Monitor BMP (6) Acute kidney injury superimposed on chronic kidney disease: Cr elevated at 2.27 (baseline 1.5) Cr 1.9 Monitor BMP (7) Cirrhosis: No hepatic encephalopathy, ascites -Continue home dose rifaximin and lactulose - Discussed with daughter that pt will need the lactulose to help him to have BM (Goal to have 3 to 5 BM daily) - GI on board (8) Atrial fibrillation: Perisisent A fib, anticoagulation contraindicated due to coagulopathy, thrombocytopenia -Initial EKG with A fib -Cont home dose Coreg (9) 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 Platelets stable -Continue to monitor -SCDs for ppx (10) BPH (benign prostatic hypertrophy): Continue tamsulosin (11) Hypothyroidism: Continue levothyroxine, Low dose Haldol, DC tele DVT Ppx: SCDs Due to GI bleed Code status: DNR Dispo: Discharge home with home health today Insurance denies inpatient placement Subjective Pt was seen and examined Sitting in chair with no distress Pt said that he feels fine Spoke to daughter and updated her that pt is stable to discharge No inpatient psych therapy Pt would like to go back to his appt Denies any chest pain, palpitation, dizziness and SOB Physical Exam Vital Signs (Past 24 Hours): Last Vital Signs Temp 36.4 C L 07/17/18 15:07 Pulse 64 07/17/18 15:07 Resp 16 07/17/18 15:07 BP 100/55 L 07/17/18 15:07 Pulse Ox 98 07/17/18 15:07 Physical Exam: General- No acute distress Head- atraumatic Eyes- PERRL, EOMI, ENT- oropharynx clear Neck- supple, no JVD Lungs- clear to auscultation Heart- regular rhythm; no murmur Abdomen- normal bowel sounds, soft, nontender Extremities- no calf tenderness Neuro- alert, oriented x 3; PERRL, EOMI; no facial palsy; no dysarthria Skin- warm & dry
--- NOTE | 2018-07-19 13:40 | Discharge Summary ---
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 Patient's hemoglobin was low at 7 last week, so GI provider arranged for 1 unit PRBC transfusion at [facility]. Since then, daughter has noted that patient seems more weak, tired and has been having frequent dark colored stool. Denies any bright red blood. Follows with Dr. Milian and has a history of chronic anemia 2/2 a persistent GI bleed. 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 Has been admitted multiple times in the past due to symptomatic anemia requiring transfusion. EGD from July 2016 showed non-bleeding esophageal varices and + portal gastropathy as well. Last colonoscopy from November 2015 with AVMs noted as well as diverticulosis. Has also been having mild to moderate fluid retention, multifactorial in etiology, for which he follows with cardiolgy. There have been recent adjustments to diuretics and currently taking 20mg Lasix daily with Metolazone 2.5mg tab as directed by PCP. Also with sodium restriction diet. Patient endorses generalized weakness and fatigue. Denies fever, chills, lightheadedness, headache, confusion, chest pain, palpitation, shortness of breath, nausea, vomiting, abdominal pain, dysuria or constipation. Discharge Data Consultations 07/12/18 20:00 ED Decision to Admit Stat 07/12/18 21:49 Consult Case Management - Discharge Planning Routine 07/13/18 08:00 Consult Gastroenterology Routine 07/14/18 09:32 Consult Psychiatry Routine
--- NOTE | 2018-07-20 08:25 | Discharge Summary ---
Date of Service July 17, 2018 Admission HPI Per Admitting Provider This is a 83yo M with a PMH of cirrhosis 2/2 NAFLD, chronic anemia, persistent A Fib, CKD III, thrombocytopenia, HTN, CAD, hypothyroidism and chronic back pain who presents with dark colored stool and generalized weakness x 3 days. Patient's hemoglobin was low at 7 last week, so GI provider arranged for 1 unit PRBC transfusion at [facility]. Since then, daughter has noted that patient seems more weak, tired and has been having frequent dark colored stool. Denies any bright red blood. Follows with Dr. Milian and has a history of chronic anemia 2/2 a persistent GI bleed. 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 Has been admitted multiple times in the past due to symptomatic anemia requiring transfusion. EGD from July 2016 showed non-bleeding esophageal varices and + portal gastropathy as well. Last colonoscopy from November 2015 with AVMs noted as well as diverticulosis. Has also been having mild to moderate fluid retention, multifactorial in etiology, for which he follows with cardiolgy. There have been recent adjustments to diuretics and currently taking 20mg Lasix daily with Metolazone 2.5mg tab as directed by PCP. Also with sodium restriction diet. Patient endorses generalized weakness and fatigue. Denies fever, chills, lightheadedness, headache, confusion, chest pain, palpitation, shortness of breath, nausea, vomiting, abdominal pain, dysuria or constipation. Admission Exam Per Admitting Provider General Appearance: WD/WN, no apparent distress, pale Head: normocephalic, atraumatic Eyes: normal inspection, PERRL, EOMI ENT: hearing grossly normal, pharynx normal (moist mucous membranes) Neck: supple, + JVD, no adenopathy Respiratory/Chest: lungs clear to auscultation with coarse bibasilar breath sounds. No wheezes or rhonci. No respiratory distress or accessory muscle use Cardiovascular: regular rate, rhythm, no murmur, normal peripheral pulses, 2-3+ bilateral pitting lower extremity edema to thighs Abdomen/GI: normal bowel sounds, soft, non-tender to palpation Extremities/Musculoskelatal: normal inspection, no calf tenderness, normal capillary refill Neurologic/Psych: alert, normal mood/affect, oriented x 3 Skin: normal color, warm/dry, pale Principal Diagnosis GI bleeding Cirrhosis Acute kidney injury superimposed on chronic kidney disease: Discharge Exam General- No acute distress Head- atraumatic Eyes- PERRL, EOMI, ENT- oropharynx clear Neck- supple, no JVD Lungs- clear to auscultation Heart- regular rhythm; no murmur Abdomen- normal bowel sounds, soft, nontender Extremities- no calf tenderness Neuro- alert, oriented x 3; PERRL, EOMI; no facial palsy; no dysarthria Skin- warm & dry Discharge Data Allergies Allergy/AdvReac Type Severity Reaction Status Date / Time lisinopril Allergy Unknown Unknown Verified 07/12/18 19:59 Consultations 07/12/18 20:00 ED Decision to Admit Stat 07/12/18 21:49 Consult Case Management - Discharge Planning Routine 07/13/18 08:00 Consult Gastroenterology Routine 07/14/18 09:32 Consult Psychiatry Routine Ordered Studies 07/12/18 18:58 CT cervical spine wo con Stat CT head/brain wo con Stat XR chest 1V portable CLINICAL HISTORY: weakness dyspnea COMPARISON STUDY: 04/05/2017 FINDINGS: Mild stable cardiomegaly. Tortuous thoracic aorta. Lungs are clear. Minimal platelike bibasilar atelectasis. IMPRESSION: No acute process. The above report was generated using voice recognition software. It may contain grammatical, syntax or spelling errors. Electronically signed by: Moi Eng M.D. 07/12/2018 7:18 PM Dictated: 07/12/181917 Transcribed: 07/12/181917 XR pelvis 1-2V routine CLINICAL HISTORY: fall trauma. Pain. COMPARISON: None. DISCUSSION: The bones and joint spaces appear intact. There is no evidence of fracture, dislocation or bony disease. There is no evidence for soft tissue swelling. IMPRESSION: Negative study. Mild degenerative change is present The above report was generated using voice recognition software. It may contain grammatical, syntax or spelling errors. Electronically signed by: Moi Eng M.D. 07/12/2018 7:17 PM Dictated: 07/12/181916 Transcribed: 07/12/181916 Hospital Course (1) Symptomatic anemia: (2) GI bleed: Recurrent bleed, thought to be 2/2 AVM bleeding, h/o varices s/p banding in October 2016 Multiple past admissions requiring blood transfusion Hgb of 6.5 currently (baseline ~8), transfused to 7.6, now 7.4 Received 2 units PRBC during this hospital course repeat Hemoglobin 8.3 today (stable) GI on board Continue PPI BID Monitor H/h CT head/brain wo con CT DOSE: 964.97 mGy.cm HISTORY: Trauma. Mental status change. weakness, fall TECHNIQUE: Multiaxial CT images of the head were performed without the use of intravenous contrast. A dose lowering technique was utilized adhering to the principles of ALARA. Comparison: 09/15/2016 Findings: The paranasal sinuses and mastoid air cells are clear. Unchanging sellar mass. Maximum dimension is approximately 2.4 x 2.5 cm. This is unchanged. Mild age-related atrophy and chronic small vessel change. No evidence for acute intracranial hemorrhage. Impression: No acute intracranial abnormality. Known and stable sellar mass. The above report was generated using voice recognition software. It may contain grammatical, syntax or spelling errors. Electronically signed by: Moi Eng M.D. 07/12/2018 7:39 PM Dictated: 07/12/181936 CT cervical spine wo con CT DOSE: HISTORY: Trauma. Pain. fall TECHNIQUE: Multiaxial CT images of the cervical spine were performed and reformatted in the sagittal and coronal plane without the use of contrast. A dose lowering technique was utilized adhering to the principles of ALARA. COMPARISON: None. FINDINGS: No fractures. No subluxation. Prevertebral soft tissues and the C1-C2 interval are intact. No pneumothorax. Generalized degenerative change. Osteo penia. IMPRESSION: No fractures within the cervical spine. Degenerative change. Osteopenia. The above report was generated using voice recognition software. It may contain grammatical, syntax or spelling errors. Electronically signed by: Moi Eng M.D. 07/12/2018 7:41 PM Dictated: 07/12/181938 Transcribed: 07/12/181938 (3) Confusion: Mostly due to delirium back to baseline Daughter does not want to take him home because pt lives alone and does not have 24hr care Insurance denies any inpt placement Recommend Home with home health Daughter said that pt has suicidal thoughts (Did not mention that until today because she would like him to stay in the psych unit) She said that she would take him right back to the hospital because pt cannot care for himself until she finds placement for him Psych on board, no indication for inpatient psych treatment Stable (4) Elevated troponin: Mostly due to demand ischemia Troponin elevated to 0.073 initially, trending down -h/o NSTEMI in setting of anemia -No CP or ischemic change on EKG -Aspirin has been d/c'd in the setting of persistent bleed -Continue statin and carvedilol (5) Fluid retention: -Has also been having mild to moderate fluid retention, multifactorial in etiology, for which he follows with cardiolgy -Currently taking 20mg Lasix daily with Metolazone 2.5mg tab as directed by PCP - lasix and metolazone resumed -Monitor BMP (6) Acute kidney injury superimposed on chronic kidney disease: Cr elevated at 2.27 (baseline 1.5) Cr 1.9 Monitor BMP (7) Cirrhosis: No hepatic encephalopathy, ascites -Continue home dose rifaximin and lactulose - Discussed with daughter that pt will need the lactulose to help him to have BM (Goal to have 3 to 5 BM daily) - GI on board (8) Atrial fibrillation: Perisisent A fib, anticoagulation contraindicated due to coagulopathy, thrombocytopenia -Initial EKG with A fib -Cont home dose Coreg (9) 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 Platelets stable -Continue to monitor -SCDs for ppx (10) BPH (benign prostatic hypertrophy): Continue tamsulosin (11) Hypothyroidism: Continue levothyroxine, Low dose Haldol, DC tele DVT Ppx: SCDs Due to GI bleed Code status: DNR Dispo: Discharge home with home health today Insurance denies inpatient placement Total Time Total Time Spent Total Time Spent (In Minutes): 35 minutes Total Time Includes: Examination of the Patient, Discharge Planning, Medication Reconciliation, Communication With Other Providers and Other Discharge Plan Discharge Items Patient Disposition: Home - Home Health Services Reason For Visit: SYMPTOMATIC ANEMIA Discharge Diagnosis: GI bleeding Cirrhosis Acute kidney injury superimposed on chronic kidney disease: Discharge Goals: Decrease discomfort Activity: Resume your previous activity Activity Comment: as tolerated Non-emergency contact: Primary Care Provider and Mobile Phone Salesperson Call non-emergency contact if: you have any medication questions Follow-up/Referrals: Marilynn Al DO [Primary Care Provider] - Diet: Heart Healthy and Low Sodium (2gm) Addtl Provider Instructions: Follow up with your primary care provider Follow up with Gatroenterology Check CBC in 1 week to monitor hemoglobin Check BMP in 1 week to monitor creatinine and electrolytes Fall precaution Continue physical therapy Continue Lactulose (titrate for goal to have 3-5 bowel movement daily Prescriptions: New lactulose 20 gram/30 mL Solution 15 ml PO BID 30 Days Qty: 600 RF: 0 Continued metolazone 2.5 mg Tablet 2.5 mg PO DAILY PRN (Reason: Fluid Retention) RF: 0 atorvastatin 40 mg Tablet 40 mg PO HS RF: 0 carvedilol 25 mg Tablet 25 mg PO BID RF: 0 ondansetron HCl 4 mg Tablet 4 mg PO HS PRN (Reason: Nausea) RF: 0 isosorbide mononitrate 30 mg Tablet Extended Release 24 Hr 30 mg PO QAM RF: 0 hydralazine 25 mg Tablet 25 mg PO TID RF: 0 allopurinol 100 mg Tablet 100 mg PO Q2D RF: 0 levothyroxine 75 mcg Tablet 75 mcg PO QAM RF: 0 potassium chloride 20 mEq Tablet,Er Particles/Crystals 20 meq PO DAILY RF: 0 tamsulosin 0.4 mg Capsule 0.4 mg PO QPM RF: 0 ferrous sulfate 325 mg (65 mg iron) Tablet 325 mg PO DAILY RF: 0 calcium carbonate [Tums] 200 mg calcium (500 mg) Tablet,Chewable 2,000 mg PO HS RF: 0 furosemide 20 mg Tablet 20 mg PO DAILY RF: 0 oxycodone 5 mg Tablet 5 mg PO TID PRN (Reason: Pain) RF: 0 rifaximin 550 mg Tablet 550 mg PO BID RF: 0 magnesium oxide 400 mg magnesium Tablet 400 mg PO QPM RF: 0 Discontinued omeprazole 40 mg Capsule,Delayed Release(Dr/Ec) 40 mg PO HS RF: 0 No Action omeprazole 40 mg capsule,delayed release(DR/EC) 40 mg PO QPM RF: 0 Stand-Alone Forms: [facility] Discharge Orders: Discharge Order (Routine); Ordered 07/17/18 Ordered By: Nino Brantley Admission Data Admit Date/Time: 07/12/18 20:53 Attending Provider: Nino Brantley Admit Provider: Abhay Palencia Primary Care Provider: Marilynn Al Other Providers: Abhay Palencia ; Riccardo Johnson ; Alethea Jimenes ; [place] Service: Medical Other Interventions: Discharge Summary Assessment (RN) Last Done: 07/17/18 18:39 DC Date/Time DO NOT enter until pt leaves facility: 07/17/18 19:30
== END 2018-07-17 19:30 | disposition home health service (06) | DRG 300 ==
LOC: ED 18:32 → SUATTDRO 20:53 → 2S 20:53 → 3N 07-14 11:09

== ENCOUNTER 2018-07-19 18:27 | Observation (INO) ==
[2018-07-19] MEDS ORDERED: PANTOprazole 80 MG in DEXTROSE 5% 100 ML IV STA (18:51)
[2018-07-19] MEDS ORDERED: SODIUM CHLORIDE 0.9% 500 ML IV SCH (19:00)
--- NOTE | 2018-07-19 19:06 | Emergency Department Note ---
Entered by Alexander Coon acting as a scribe for History of Present Illness General Chief complaint: GI Assessment Stated complaint: GI BLEED Time Seen by Provider: 07/19/18 18:39 Source: patient History of Present Illness Provider complaint: GI assessment Onset (ago): hour(s) (This afternoon) Location: buttocks Radiation: non-radiation Severity: similar to prior episodes Pain Consistency: + intermittent Relieved By: + none Associated symptoms: + other (No dizziness, no abdominal pain); no shortness of breath The patient is an 83 year old male who presents to the Emergency Room with complaints of intermittent episodes of black and tarry stool that occurred this afternoon. Per the patient's daughter, he moved his bowels this morning and it was normal. Later in the day he started complaining of rectal pain because he is moving his bowels a lot since being hospitalized and given lactulose. Around this time is when the melena started. The patient was just discharged from here 2 days ago for a GI bleed. During his stay he did have a blood transfusion and his bleeding was thought to be secondary to an AVM. The patient is not on any blood thinners and his hemoglobin is typically around 8. Since the transfusion he has not had any falls and he denies any abdominal pain, shortness of breath, or dizziness. Per the patient's daughter, he has been scoped by Dr. Milian multiple times and he cannot find the bleed. Home Medications Home Medications Medication Instructions Recorded Confirmed Type allopurinol 100 mg PO Q2D 04/27/18 07/19/18 History atorvastatin 40 mg PO HS 04/27/18 07/19/18 History calcium carbonate [Tums] 2,000 mg PO HS 04/27/18 07/19/18 History carvedilol 25 mg PO BID 04/27/18 07/19/18 History ferrous sulfate 325 mg PO DAILY 04/27/18 07/19/18 History furosemide 20 mg PO DAILY 04/27/18 07/19/18 History hydralazine 25 mg PO TID 04/27/18 07/19/18 History isosorbide mononitrate 30 mg PO QAM 04/27/18 07/19/18 History levothyroxine 75 mcg PO QAM 04/27/18 07/19/18 History magnesium oxide 400 mg PO QPM 04/27/18 07/19/18 History metolazone 2.5 mg PO DAILY PRN 04/27/18 07/19/18 History ondansetron HCl 4 mg PO HS PRN 04/27/18 07/19/18 History oxycodone 5 mg PO TID PRN 04/27/18 07/19/18 History potassium chloride 20 meq PO DAILY 04/27/18 07/19/18 History rifaximin 550 mg PO BID 04/27/18 07/19/18 History tamsulosin 0.4 mg PO QPM 04/27/18 07/19/18 History lactulose 15 ml PO BID 30 Days #600 ml 07/17/18 07/19/18 Rx omeprazole 40 mg PO QPM 07/19/18 07/19/18 History Allergies Allergy/AdvReac Type Severity Reaction Status Date / Time lisinopril Allergy Unknown Unknown Verified 07/12/18 19:59 Past Med/Surg History Medical History Hypertension (Chronic) History of non-ST elevation myocardial infarction (NSTEMI) (Chronic) "in October 2010 secondary to severe anemia" Paroxysmal atrial fibrillation (Chronic) Hypothyroidism (Chronic) BPH (benign prostatic hypertrophy) (Chronic) Thrombocytopenia (Chronic) Anemia (Chronic) CKD (chronic kidney disease), stage III (Chronic) Atrial fibrillation (Chronic) Cirrhosis (Chronic) "nonalcoholic fatty liver disease" Dyslipidemia (Chronic) Esophageal varices (Chronic) "Mar 2015- small varices, mild erosive antral gastritis" GERD (gastroesophageal reflux disease) (Chronic) GI bleed (Resolved) Epistaxis (Inactive) Surgical History H/O colonoscopy (Chronic) "2010- adenomatous polyps; 11/2016- polyp, AVM's treated with thermal therapy and clipped, diverticulosis, hemorrhoids" H/O esophagogastroduodenoscopy (Chronic) "Mar 2015- small varices, mild erosive antral gastritis" History of esophagogastroduodenoscopy (EGD) (Resolved) "07/12/1617 grade II esophageal varices, erosive gastropathy" Family History Father Heart disease Mother Tuberculosis Social History Preferred Language: Ken[place] Beliefs That Will Affect Care: None marital status: / Current Living Situation: Alone current occupational status: retired Feels Safe at Home: Yes Smoking Status: Former smoker Hx Alcohol Use: No Hx Substance Use: No Review of Systems See HPI for pertinent positives & negatives. and A total of 10 systems reviewed and were otherwise negative Physical Exam Vital Signs Vital Signs - 24 hr 07/19/18 18:33 07/19/18 18:51 07/19/18 19:27 Temperature 36.5 C Temperature Source Oral Sepsis Recent Fever Within 48 Hours No Sepsis Action Taken by Nursing No Action Required Pulse Rate 79 Pulse Rate [Left Finger] 72 Pulse Rhythm [Left Finger] Regular Pulse Strength [Left Finger] Normal Respiratory Rate 20 18 Respiratory Effort / Characteristics Non-Labored Spontaneous Non-Labored Respiratory Depth Normal Normal Respiratory Pattern Regular Regular Blood Pressure 93/56 L Blood Pressure [Right Arm] 103/56 L Blood Pressure Mean 68 Blood Pressure Mean [Right Arm] 71 Blood Pressure Position [Right Arm] Sitting Pulse Oximetry 99 Oxygen Delivery Method Room Air Room Air 07/19/18 20:00 Temperature Temperature Source Sepsis Recent Fever Within 48 Hours Sepsis Action Taken by Nursing Pulse Rate Pulse Rate [Left Finger] 68 Pulse Rhythm [Left Finger] Regular Pulse Strength [Left Finger] Normal Respiratory Rate 18 Respiratory Effort / Characteristics Non-Labored Respiratory Depth Normal Respiratory Pattern Regular Blood Pressure Blood Pressure [Right Arm] 110/67 Blood Pressure Mean Blood Pressure Mean [Right Arm] 81 Blood Pressure Position [Right Arm] Lying Pulse Oximetry 98 Oxygen Delivery Method Room Air GENERAL: Patient is in no acute distress. HEENT: No acute trauma, normocephalic atraumatic, mucous membranes moist, no nasal congestion, no scleral icterus. NECK: No stridor, no adenopathy, no meningismus, trachea is midline. LUNGS: Clear to auscultation bilaterally, no wheeze, no rhonchi, breath sounds equal. HEART: Irregular rhythm with a normal rate and no murmur. ABDOMEN: Soft, nontender, bowel sounds positive, no hernias, no peritonitis. RECTAL: Black stool, heme positive. EXTREMITIES: No cyanosis or edema, full range of motion of all the joints without pain or difficulty, no signs for acute trauma. NEUROLOGIC: Oriented x 3, no acute motor or sensory deficits, no focal weakness. SKIN: Pale with no rash, no jaundice, no diaphoresis. Course 1844: Past medical records reviewed. The patient was evaluated in room C06, and a complete history and physical examination were performed. 1929: I reevaluated and updated the patient on his lab results. I also discussed the treatment plan with him and his family and they all agree to admission for observation. The [facility] hospitalist was wyatt. 1947: I spoke to Dr. Slime Bingham about the patient's case and he is going to accept him for further evaluation. Consultations Consultation #1: I spoke to Dr. Slime Bingham about the patient's case and he is going to accept him for further evaluation. Time: 19:48 Administered Medications Discontinued Medications Pantoprazole Sodium 80 mg/ (Dextrose) 100 mls @ 400 mls/hr IV ONE STA Stop: 07/19/18 19:05 Last Admin: 07/19/18 19:12 Dose: 400 mls/hr Documented by: [id number] Sodium Chloride (Nss) 500 mls @ 999 mls/hr IV .Q31M DOE Stop: 07/19/18 19:30 Last Admin: 07/19/18 19:13 Dose: 999 mls/hr Documented by: [id number] Medical Decision Making Differential Diagnosis Differential Diagnoses: Upper GI bleed, lower GI bleed, varices, ulcer, anemia, cardiac ischemia, dysrhythmia, and coagulopathy, amongst others. Medical Records Attestation: I reviewed the patient's medical records. Home Medications Current Medication List: was personally reviewed by me Laboratory Data Attestation: I reviewed the patient's lab results. Result diagrams: 07/19/18 18:45 07/19/18 18:45 Lab Results 07/19/18 07/19/18 07/19/18 Range/Units 18:45 18:45 18:45 WBC 8.14 (4.8-10.8) K/uL RBC 2.71 L (4.7-6.1) M/uL Hgb 7.7 L (14.0-18.0) g/dL Hct 24.1 L (42-52) % MCV 88.9 (80-100) fL MCH 28.4 (25-34) pg MCHC 32.0 (32-36) g/dL RDW Std Deviation 56.0 H (36.4-46.3) fL RDW Coeff of Erick 17.1 H (11.5-14.5) % Plt Count 63 L (130-400) K/uL MPV 12.4 H (7.4-10.4) fL Immature Gran % (Auto) 0.2 % Neut % (Auto) 74.9 % Lymph % (Auto) 11.9 % Bleckley % (Auto) 9.5 % Eos % (Auto) 3.4 % Baso % (Auto) 0.1 % Immature Gran # (Auto) 0.02 (0.00-0.02) K/uL Neut # (Auto) 6.09 (1.4-6.5) K/uL Lymph # (Auto) 0.97 L (1.2-3.4) K/uL Bleckley # (Auto) 0.77 H (0.11-0.59) K/uL Eos # (Auto) 0.28 (0-0.5) K/uL Baso # (Auto) 0.01 (0-0.2) K/uL RBC Morphology Unremarkable PT 13.5 H (9.0-12.0) Seconds INR 1.3 H (0.9-1.1) APTT 27.3 (21.0-31.0) Seconds PTT Ratio 1.0 Sodium 144 (136-145) mmol/L Potassium 4.1 (3.5-5.1) mmol/L Chloride 112 H (98-107) mmol/L Carbon Dioxide 25 (21-32) mmol/L Anion Gap 7.0 (3-11) BUN 46 H (7-18) mg/dl Creatinine 1.94 H (0.6-1.4) mg/dl Est Cr Clr Drug Dosing 31.4 ml/min Est GFR ( Amer) 36.6 Est GFR (Non-Af Amer) 31.5 BUN/Creatinine Ratio 23.7 H (10-20) Glucose 98 (70-99) mg/dl Calcium 7.2 L (8.5-10.1) mg/dl Magnesium 1.9 (1.8-2.4) mg/dl Total Bilirubin 0.8 (0.2-1) mg/dl AST 29 (15-37) U/L ALT 24 (12-78) U/L Alkaline Phosphatase 85 (45-117) U/L Troponin I 0.030 (0-0.045) ng/ml Total Protein 5.2 L (6.4-8.2) gm/dl Albumin 2.3 L (3.4-5.0) gm/dl Globulin 2.9 (2.5-4.0) gm/dl Albumin/Globulin Ratio 0.8 L (0.9-2) Lipase 159 (73-393) U/L Imaging Data Radiologist's Impression: Radiology results as stated below per my review and the radiologist's interpretation: XR chest 1V portable CLINICAL HISTORY: gi bleed COMPARISON STUDY: 07/12/2018 FINDINGS: The heart remains enlarged. There is no failure. There is no focal pulmonary consolidation. There are no pleural effusions. There is no free intraperitoneal air.[ IMPRESSION: No active disease in the chest. Electronically signed by: Umang Roberson M.D. 07/19/2018 7:30 PM ECG Data Attestation: I personally reviewed and interpreted this ECG as follows: Indication: other (GI bleed) Rate (beats per minute): 75 Rhythm: atrial fibrillation Findings: + nonspecific-ST abn; no PVC and no ST elevation Blood Pressure Blood Pressure Findings: Low blood pressure Blood Pressure Disposition: further management by hospitalist [facility] Narrative There is no leukocytosis. Hemoglobin is low and slightly lower than when he left the hospital 2 days ago. Value today is 7.7. Platelet count is low at 63, he has a history of the same. INR was not significantly elevated, value was 1.3. Creatinine was elevated at 1.9, this is baseline for him. BUN has risen slightly. No evidence for pancreatitis. No evidence for hepatitis. EKG shows A. fib, no acute ischemia. Cardiac enzyme testing x1 is not consistent with acute cardiac injury. Chest film does not show pneumonia, free air or pneumothorax. On exam, the patient was not toxic or febrile. He did have a slightly low blood pressure however, he carries a history of the same. His stool was heme positive and black in color. Patient received IV saline, 500 cc. He was given a bolus of IV Protonix. Patient presents with potential recurrent GI bleeding. I do think he deserves a hospital stay to see if he is bleeding again or if this is residual melena from his last admission. His hemoglobin needs to be trended. His stools need to be followed. I spoke to the patient and his family, I talked with case management. The on- call hospitalist was consulted. Impression & Plan GI bleed, Anemia, Black stool Discharge Plan Visit Data Chief Complaint: GI Assessment Stated Complaint: GI BLEED ED Provider: Edu Borges Discharge Problem: GI bleed, Anemia, Black stool Patient Disposition: Being Evaluated by Hospitalist Forms Stand Alone Forms: My [facility] Prescriptions Prescriptions: No Action metolazone 2.5 mg Tablet 2.5 mg PO DAILY PRN (Reason: Fluid Retention) RF: 0 atorvastatin 40 mg Tablet 40 mg PO HS RF: 0 carvedilol 25 mg Tablet 25 mg PO BID RF: 0 ondansetron HCl 4 mg Tablet 4 mg PO HS PRN (Reason: Nausea) RF: 0 isosorbide mononitrate 30 mg Tablet Extended Release 24 Hr 30 mg PO QAM RF: 0 hydralazine 25 mg Tablet 25 mg PO TID RF: 0 allopurinol 100 mg Tablet 100 mg PO Q2D RF: 0 levothyroxine 75 mcg Tablet 75 mcg PO QAM RF: 0 potassium chloride 20 mEq Tablet,Er Particles/Crystals 20 meq PO DAILY RF: 0 tamsulosin 0.4 mg Capsule 0.4 mg PO QPM RF: 0 ferrous sulfate 325 mg (65 mg iron) Tablet 325 mg PO DAILY RF: 0 calcium carbonate [Tums] 200 mg calcium (500 mg) Tablet,Chewable 2,000 mg PO HS RF: 0 furosemide 20 mg Tablet 20 mg PO DAILY RF: 0 oxycodone 5 mg Tablet 5 mg PO TID PRN (Reason: Pain) RF: 0 rifaximin 550 mg Tablet 550 mg PO BID RF: 0 magnesium oxide 400 mg magnesium Tablet 400 mg PO QPM RF: 0 omeprazole 40 mg capsule,delayed release(DR/EC) 40 mg PO QPM RF: 0 lactulose 20 gram/30 mL Solution 15 ml PO BID 30 Days Qty: 600 RF: 0 Referrals Referrals: Marilynn Al DO [Primary Care Provider] - Discharge Problem: GI bleed Qualifiers: GI bleed type/associated pathology: melena Qualified Code(s): K92.1 - Melena Anemia Qualifiers: Anemia type: unspecified type Qualified Code(s): D64.9 - Anemia, unspecified The scribe's documentation has been prepared under my direction and personally reviewed by me in its entirety. I confirm that the note above accurately reflects all work, treatment, procedures, and medical decision making performed by me.
[2018-07-19 19:14] LABS: INR 1.3 (0.9-1.1); Partial Thromboplastin Time 27.3 Seconds (21.0-31.0); Prothrombin Time 13.5 Seconds (9.0-12.0)
[2018-07-19 19:19] LABS: Hematocrit (blood only) 24.1 % (42-52); Hemoglobin 7.7 g/dL (14.0-18.0); Mean Corpuscular Volume 88.9 fL (80-100); Mean Platelet Volume 12.4 fL (7.4-10.4); Platelet Count 63 K/uL (130-400); RDW Coefficient of Variation 17.1 % (11.5-14.5); Red Blood Count 2.71 M/uL (4.7-6.1); White Blood Count 8.14 K/uL (4.8-10.8)
[2018-07-19 19:22] LABS: Albumin Level 2.3 gm/dl (3.4-5.0); BUN Creatinine Ratio 23.7 (10-20); Calcium 7.2 mg/dl (8.5-10.1); Creatinine Clr Calc Pharmacy 31.4 ml/min; Est GFR (African American) 36.6; Est GFR (Non-African American) 31.5; Magnesium 1.9 mg/dl (1.8-2.4); Potassium 4.1 mmol/L (3.5-5.1)
[2018-07-19 19:27] LABS: Albumin Globulin Ratio 0.8 (0.9-2); Basophils # (auto) 0.01 K/uL (0-0.2); Basophils % (auto) 0.1 %; Bilirubin,Total 0.8 mg/dl (0.2-1); Eosinophils # (auto) 0.28 K/uL (0-0.5); Eosinophils % (auto) 3.4 %; Globulin 2.9 gm/dl (2.5-4.0); Immature Granulocytes # (auto) 0.02 K/uL (0.00-0.02); Immature Granulocytes % (auto) 0.2 %; Lymphocytes # (auto) 0.97 K/uL (1.2-3.4); Lymphocytes % (auto) 11.9 %; Monocytes # (auto) 0.77 K/uL (0.11-0.59); Monocytes % (auto) 9.5 %; Neutrophils # (auto) 6.09 K/uL (1.4-6.5); Neutrophils % (auto) 74.9 %; RBC Morphology Unremarkable; Total Protein 5.2 gm/dl (6.4-8.2); Troponin I 0.03 ng/ml (0-0.045)
--- NOTE | 2018-07-19 19:32 | XRay Report ---
XR chest 1V portable CLINICAL HISTORY: gi bleed COMPARISON STUDY: 07/12/2018 FINDINGS: The heart remains enlarged. There is no failure. There is no focal pulmonary consolidation. There are no pleural effusions. There is no free intraperitoneal air.[ IMPRESSION: No active disease in the chest. Electronically signed by: Umang Roberson M.D. 07/19/2018 7:30 PM
[2018-07-19] MEDS ORDERED: metOLazone 2.5 MG TABLET PO PRN (22:22)
[2018-07-19] MEDS ORDERED: ACETAMINOPHEN 325 MG TAB PO STA (22:22)
[2018-07-19] MEDS ORDERED: ONDANSETRON 4 MG TAB PO PRN (22:22)
[2018-07-19] MEDS ORDERED: ALLOPURINOL 100 MG TAB PO SCH (22:22)
[2018-07-19] MEDS ORDERED: OXYCODONE HCL IR 5 MG TAB (IMMEDIATE RELEASE) PO PRN (22:22)
[2018-07-19] MEDS ORDERED: SODIUM CHLORIDE 0.9% 250 ML IV PRN (22:22)
[2018-07-19] MEDS ORDERED: ONDANSETRON INJ 2 MG/ML 2 ML VIAL IV PRN (22:22)
[2018-07-19] MEDS ORDERED: NITROGLYCERIN SL 0.4 MG/TAB TAB SL PRN (22:22)
[2018-07-19 22:54] LABS: Hematocrit (blood only) 23.1 % (42-52); Hemoglobin 7.5 g/dL (14.0-18.0)
[2018-07-19] MEDS ORDERED: FUROSEMIDE 20 MG in SYRINGE 0 ML IV ONE (23:00)
[2018-07-19 23:15] LABS: BUN Creatinine Ratio 24.6 (10-20); Calcium 7.1 mg/dl (8.5-10.1); Creatinine Clr Calc Pharmacy 33.1 ml/min; Est GFR (Non-African American) 33.6; Potassium 3.8 mmol/L (3.5-5.1)
[2018-07-19] MEDS: PANTOprazole 40 MG in DEXTROSE 5% 100 ML IV SCH (23:34)
[2018-07-19] MEDS: RIFAXIMIN 550 MG TABLET PO SCH (23:34)
--- NOTE | 2018-07-20 03:46 | History and Physical Report ---
DATE OF ADMISSION: 07/19/2018 CHIEF COMPLAINT: GI bleed. 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 The patient was recently in the hospital, admitted on 07/12/2018 and discharged on 07/17/2018 with the symptomatic anemia, at that time hemoglobin was 6.5, received 3 units PRBCs and hemoglobin was 8.3 on discharge. Seen by GI. No intervention was done as patient was stabilized and because of history of AVMs in the past and got discharged. The patient is on waiting list for personal retirement. Currently, getting home health. Lives alone. Daughter checks on him. The patient has been doing okay until today afternoon. Today morning, he had a couple of bowel movements, which were normal. Appetite is not that great, but he was eating okay, ambulating okay with walker and in the afternoon he called his daughter and said he was feeling weak and tired and he has some black tarry stools again and questions of some blood in the stools, so he was brought into the hospital. His hemoglobin is 7.7. Currently, resting comfortably and hemodynamically stable. Denies any abdominal pain. No nausea, no vomiting, no chest pain, no shortness of breath. No cough, no headache, no blurred vision. No difficulty swallowing. He has some swelling in the legs. No rash. The patient does not want to take lactulose because it is causing a lot of diarrhea. Denies any burning micturition. ALLERGIES: LISINOPRIL. PAST MEDICAL HISTORY: As mentioned above. PAST SURGICAL HISTORY: Colonoscopies, EGDs showing grade 2 esophageal varices and erosive gastropathy. MEDICATIONS: The patient is on Tums 500 mg 4 tablets at bedtime, Lasix 20 mg p.o. daily, potassium chloride 20 mEq p.o. daily, Zofran 4 mg p.o. at bedtime p.r.n., metolazone 2.5 mg daily as needed, oxycodone 5 mg t.i.d. p.r.n., Flomax 0.4 mg p.o. daily, hydralazine 25 mg p.o. t.i.d., Coreg 25 mg p.o. b.i.d., Imdur 30 mg p.o. daily, ferrous sulfate 325 mg p.o. daily, oxygen 2 liters while ambulating, omeprazole 40 mg p.o. daily, rifaximin 550 mg p.o. b.i.d., levothyroxine 75 mcg p.o. daily, magnesium oxide 400 mg p.o. daily, atorvastatin 80 mg p.o. daily, allopurinol 100 mg p.o. daily, lactulose 50 mg p.o. b.i.d. FAMILY HISTORY: Significant for mother had TB. Father had heart disease. Brother had pneumonia. SOCIAL HISTORY: Lives alone. Quit smoking in 1971. No alcohol. No drug use. REVIEW OF SYMPTOMS: As per HPI. Rest of review of systems negative. PHYSICAL EXAMINATION: GENERAL: The patient is old and frail, not in acute distress. VITAL SIGNS: Temperature 36.5, pulse 68, respiratory rate 18, blood pressure 110/67, oxygen 98% room air. HEENT: No pallor, no icterus. Pupils equal, round, and react to light. NECK: No JVD, no neck mass. No carotid bruit. CARDIOVASCULAR: S1, S2 heard, regular rate and rhythm, no murmur, no gallop. RESPIRATORY SYSTEM: Normal AP diameter. No accessory muscle use. No wheezing, no crackles. ABDOMEN: Soft, bowel sounds present, nontender. No distention. CENTRAL NERVOUS SYSTEM: Cranial nerves II-XII grossly intact. Nonfocal. EXTREMITIES: Pedal edema present, no erythema seen. LABORATORIES: WBC 8.14, hemoglobin 7.7, hematocrit 24.1, platelets 63. PT 13.5, INR 1.3, aPTT 27.3. Sodium 144, potassium 4.1, chloride 112, CO2 of 35, BUN 46, creatinine 1.94, serum glucose 98, calcium 7.2, magnesium 1.9, total bilirubin 0.8, AST 29, ALT 24, alkaline phosphatase 85, troponin-I 0.03, lipase 159. Chest x-ray: No active disease in the chest. ASSESSMENT AND PLAN: This is an 83-year-old male who presents with again black stools and anemia. 1. Gastrointestinal bleed, acute blood loss anemia, his hemoglobin is 7.7. Patient has recurrent GI bleeds. Had multiple scopes in the past thought to be from arteriovenous malformations, recently in the hospital and discharged couple of days ago. He was seen by GI but no intervention was done. Hemoglobin stabilized with 3 units of PRBCs. Discharge hemoglobin was 8.3, currently it is 7.7, he had some black tarry stools again today. We will transfer 2 units of PRBCs. H and H q. 8 hours, start on Protonix drip, n.p.o., gentle fluids and consult GI in the a.m. for further recommendations, observe in tele floor. 2. History of liver cirrhosis. Continue his Lasix and Zaroxolyn as needed and patient was started on lactulose last admission, patient is declining to take it. Currently, no encephalopathy. We will monitor. 3. Benign prostatic hyperplasia. Continue Flomax . 4. History of atrial fibrillation, not on anticoagulation because of thrombocytopenia and GI bleed. Rate control with Coreg. 5. Thrombocytopenia most likely from liver disease. We will follow the labs. 6. History of hypertension. Continue hydralazine, Coreg, Imdur. We will monitor the blood pressure. 7. History of heart failure secondary to valvular heart disease. continuing home diuretics for now.Monitor for volume overload as on gentle fluids. 8. Acute kidney injury (stage III), baseline creatinine 1.5, creatinine 1.9. We will follow the labs. 9. Hyperlipidemia, continue statin. 10. Hypothyroidism, continue Synthroid. 11. Coronary artery disease, continue Coreg and statin. 12.. Deep venous thrombosis prophylaxis, we will keep on sequential compression devices. 13. Disposition: Closely monitor on the tele floor. Level 1, full code. Social service to help with discharge planning. [facility]
[2018-07-20] MEDS: SODIUM CHLORIDE 0.9% 1000ML 1,000 ML IV SCH ×2 (04:00→18:58)
[2018-07-20] MEDS: PANTOprazole 40 MG in DEXTROSE 5% 100 ML IV SCH ×5 (04:15→23:36)
[2018-07-20 06:02] LABS: Hematocrit (blood only) 25.7 % (42-52); Hemoglobin 8.8 g/dL (14.0-18.0); Mean Corpuscular Hgb Conc 34.2 g/dL (32-36); Mean Corpuscular Volume 87.4 fL (80-100); Mean Platelet Volume 12.4 fL (7.4-10.4); Platelet Count 32 K/uL (130-400); RDW Coefficient of Variation 16.3 % (11.5-14.5); RDW Standard Deviation 52.1 fL (36.4-46.3); Red Blood Count 2.94 M/uL (4.7-6.1); White Blood Count 4.04 K/uL (4.8-10.8)
[2018-07-20 06:03] LABS: Basophils # (auto) 0.01 K/uL (0-0.2); Basophils % (auto) 0.2 %; Eosinophils # (auto) 0.17 K/uL (0-0.5); Eosinophils % (auto) 4.2 %; Giant Platelets 1+; Immature Granulocytes # (auto) 0.01 K/uL (0.00-0.02); Immature Granulocytes % (auto) 0.2 %; Lymphocytes # (auto) 0.72 K/uL (1.2-3.4); Lymphocytes % (auto) 17.8 %; Monocytes # (auto) 0.29 K/uL (0.11-0.59); Monocytes % (auto) 7.2 %; Neutrophils # (auto) 2.84 K/uL (1.4-6.5); Neutrophils % (auto) 70.4 %; Polychromasia 1+
[2018-07-20] MEDS: LEVOTHYROXINE SODIUM 75 MCG TABLET PO SCH (06:10)
[2018-07-20] MEDS: RIFAXIMIN 550 MG TABLET PO SCH ×2 (08:36→20:46)
[2018-07-20] MEDS: FERROUS SULFATE 325 MG TAB PO SCH (08:36)
[2018-07-20] MEDS: POTASSIUM CHLORIDE 20 MEQ TABCR PO SCH (08:37)
[2018-07-20] MEDS: ALLOPURINOL 100 MG TAB PO SCH (08:37)
[2018-07-20] MEDS: CARVEDILOL 25 MG TAB PO SCH ×2 (08:37→20:44)
[2018-07-20] MEDS: FUROSEMIDE 20 MG TAB PO SCH (08:38)
[2018-07-20] MEDS: ISOSORBIDE MONO EXTENDED REL 30 MG TABCR PO SCH (08:38)
--- NOTE | 2018-07-20 09:15 | Gastrointestinal Consultation ---
Date of Consultation July 20, 2018 Assessment & Plan (1) GI bleed: 83 year old male with history of cirrhosis, previous banded varices in 2017, portal htn gastropathy, colonic AVM who presents with weakness, continued dark tarry stools. He has not had any hematemesis, coffee ground emesis and his vitals have remained stable during course of admission. Upon entering his room this AM he did pass a moderate amount of melena - repeat H&H pending. - NPO - IV PPI bolus and drip - IV octreotide bolus and drip - IV ABX for SBP prophylaxis - EGD today - Trend H&H - Monitor and document all bowels - Transfuse PRN per primary service - consider PLTs - Will tiger text the primary service to discuss - Continued OP GI care for cirrhosis, will need HCC screening w/ imaging and AFP Thank you for allowing us to participate in the care of this patient. Please call with any acute changes, questions or concerns. Please see addendum below with additional recommendation from my supervising physician. Present on Admission?: Yes Supervising Physician Co-Signing Physician Notes Attending attestation I have seen, examined this patient, and agree with the findings and above by our mid-level provider PHYLLIS Carrion. -Case discussed with patient, daughter, as well as Dr. Milian, patient's primary outpatient mortgage closer whom he knows quite well. He was admitted with a dark stool similar last week however this time he is not confused. This is a chronic problem for him and he is on multiple admissions for a number of years with this, including multiple endoscopies for similar presentations. The patient his daughter nor Dr. Milian want to proceed with any invasive procedures. They only desire and recommend supportive care including no interventional procedures such as endoscopy. We had tentatively planned and placed him on the schedule when patient refused to come down for the EGD we will readdresed these issues. -Patient certainly had a clinical decline over last year due to his other chronic issues as well as his end-stage liver disease, discussed with Dr. Milian as well as daughter and they are interested in hospice services which we will help facilitate and discuss with the primary hospitalist service. -Otherwise well inpatient and I would support him with blood products as needed, IV infusions including Protonix as well as octreotide given the fact that he is not acutely ongoing with a GI bleed right now this is certainly a chronic issue agree with the family's desired approach. Please call with any questions or concerns. History of Present Illness Reason for Consultation: melena, anemia Requesting Physician: Karon Attending Physician: Nino Brantley MD History of Present Illness 83 year old male w/ suspected GALEANO cirrhosis, esophageal varices, multiple colonic AVMs, Afib, CKD and HTN who presents as a readmission for continued melena, weakness. Pt was seen and evaluated, chart reviewed. No family at bedside. Upon entering pt room, he had had a moderate episode of melena. No BRB was appreciated in the stool. Repeat vitals were obtained and stable w/ BP 128/78 and pulse 75. The patient was OOB in chair upon re-entering the room. He endorses continued melena. Notes this has been persistent x 1 week. No BRBPR. No nausea, vomiting. No abd pain. No fever, chills, CP, SOB. EGD 2017: grade 2 varices which were banded and portal htn gastropathy Colonoscoopy 2016: polyp, AVMs, diverticuloiss, hemorrhiods Diagnosis: suspected GALEANO cirrhosis Decompensations Varices: banded in 2017 not on BB Portal HTN gastropathy: not on BB Ascites: none HE: none, pt stopped Lactulose Screenings Varices: due HCC: due MELD: UTD Immunizations: unknown to me Allergies Allergy/AdvReac Type Severity Reaction Status Date / Time lisinopril Allergy Unknown Unknown Verified 07/12/18 19:59 Home Medications Home Medications Medication Instructions Recorded Confirmed Type allopurinol 100 mg PO Q2D 04/27/18 07/19/18 History atorvastatin 40 mg PO HS 04/27/18 07/19/18 History calcium carbonate [Tums] 2,000 mg PO HS 04/27/18 07/19/18 History carvedilol 25 mg PO BID 04/27/18 07/19/18 History ferrous sulfate 325 mg PO DAILY 04/27/18 07/19/18 History furosemide 20 mg PO DAILY 04/27/18 07/19/18 History hydralazine 25 mg PO TID 04/27/18 07/19/18 History isosorbide mononitrate 30 mg PO QAM 04/27/18 07/19/18 History levothyroxine 75 mcg PO QAM 04/27/18 07/19/18 History magnesium oxide 400 mg PO QPM 04/27/18 07/19/18 History metolazone 2.5 mg PO DAILY PRN 04/27/18 07/19/18 History ondansetron HCl 4 mg PO HS PRN 04/27/18 07/19/18 History oxycodone 5 mg PO TID PRN 04/27/18 07/19/18 History potassium chloride 20 meq PO DAILY 04/27/18 07/19/18 History rifaximin 550 mg PO BID 04/27/18 07/19/18 History tamsulosin 0.4 mg PO QPM 04/27/18 07/19/18 History lactulose 15 ml PO BID 30 Days #600 ml 07/17/18 07/19/18 Rx omeprazole 40 mg PO QPM 07/19/18 07/19/18 History Patient History Medical History Hypertension (Chronic) History of non-ST elevation myocardial infarction (NSTEMI) (Chronic) "in October 2010 secondary to severe anemia" Paroxysmal atrial fibrillation (Chronic) Hypothyroidism (Chronic) BPH (benign prostatic hypertrophy) (Chronic) Thrombocytopenia (Chronic) Anemia (Chronic) CKD (chronic kidney disease), stage III (Chronic) Atrial fibrillation (Chronic) Cirrhosis (Chronic) "nonalcoholic fatty liver disease" Dyslipidemia (Chronic) Esophageal varices (Chronic) "Mar 2015- small varices, mild erosive antral gastritis" GERD (gastroesophageal reflux disease) (Chronic) GI bleed (Resolved) Epistaxis (Inactive) Surgical History H/O colonoscopy (Chronic) "2010- adenomatous polyps; 11/2016- polyp, AVM's treated with thermal therapy and clipped, diverticulosis, hemorrhoids" H/O esophagogastroduodenoscopy (Chronic) "Mar 2015- small varices, mild erosive antral gastritis" History of esophagogastroduodenoscopy (EGD) (Resolved) "07/12/1617 grade II esophageal varices, erosive gastropathy" Family History Father Heart disease Mother Tuberculosis Social History (Reviewed 07/19/18 @ 18:58 by Alexander Villarreal Communication Ability: Effective Beliefs That Will Affect Care: None marital status: / Current Living Situation: Alone Current Living Situation Comment: [facility] current occupational status: retired Feels Safe at Home: Yes Safety Concerns: Feels Safe At This Time Smoking Status: Former smoker Hx Alcohol Use: No Hx Substance Use: No Review of Systems Constitutional: + weakness; no fever and no body aches Respiratory: no cough, no dyspnea and no pain on inspiration Cardiovascular: no chest pain, no radiating jaw, neck or arm pain, no dyspnea on exertion and no palpitations Gastrointestinal: + melena; no abdominal pain, no belching, no early satiety, no heartburn, no nausea, no vomiting, no hematemesis, no dysphagia, no excessive flatulence and no blood in stools Physical Exam Vital Signs (Past 24 Hours): Last Vital Signs Temp 36.8 C 07/20/18 07:10 Pulse 75 07/20/18 08:32 Resp 17 07/20/18 07:10 BP 128/78 07/20/18 08:32 Pulse Ox 97 07/20/18 07:10 Constitutional: well nourished, cooperative and comfortable; + not well developed and no acute distress Respiratory: no respiratory distress and does not use accessory muscles Auscultation: lungs clear to auscultation bilaterally; no crackles and no wheezes Cardiovascular: Rate/Rhythm: regular rate and regular rhythm Heart Sounds: normal S1 and normal S2; no click, no murmur and no cardiac rub Gastrointestinal (Abdomen): normal bowel sounds, soft, nontender, no hepatosplenomegaly Results & Data Laboratory Results 07/20/18 07/20/18 07/19/18 Range/Units 05:19 05:19 22:40 WBC 4.04 L (4.8-10.8) K/uL RBC 2.94 L (4.7-6.1) M/uL Hgb 8.8 L 7.5 L (14.0-18.0) g/dL Hct 25.7 L 23.1 L (42-52) % MCV 87.4 (80-100) fL MCH 29.9 (25-34) pg MCHC 34.2 (32-36) g/dL RDW Std Deviation 52.1 H (36.4-46.3) fL RDW Coeff of Erick 16.3 H (11.5-14.5) % Plt Count 32 L (130-400) K/uL MPV 12.4 H (7.4-10.4) fL Immature Gran % (Auto) 0.2 % Neut % (Auto) 70.4 % Lymph % (Auto) 17.8 % [place] % (Auto) 7.2 % Eos % (Auto) 4.2 % Baso % (Auto) 0.2 % Immature Gran # (Auto) 0.01 (0.00-0.02) K/uL Neut # (Auto) 2.84 (1.4-6.5) K/uL Lymph # (Auto) 0.72 L (1.2-3.4) K/uL [place] # (Auto) 0.29 (0.11-0.59) K/uL Eos # (Auto) 0.17 (0-0.5) K/uL Baso # (Auto) 0.01 (0-0.2) K/uL Giant Platelets 1+ RBC Morphology Polychromasia 1+ PT (9.0-12.0) Seconds INR (0.9-1.1) APTT (21.0-31.0) Seconds PTT Ratio Sodium (136-145) mmol/L Potassium (3.5-5.1) mmol/L Chloride (98-107) mmol/L Carbon Dioxide (21-32) mmol/L Anion Gap (3-11) BUN (7-18) mg/dl Creatinine (0.6-1.4) mg/dl Est Cr Clr Drug Dosing ml/min Est GFR ( Amer) Est GFR (Non-Af Amer) BUN/Creatinine Ratio (10-20) Glucose (70-99) mg/dl Calcium (8.5-10.1) mg/dl Magnesium 1.8 (1.8-2.4) mg/dl Total Bilirubin (0.2-1) mg/dl AST (15-37) U/L ALT (12-78) U/L Alkaline Phosphatase (45-117) U/L Troponin I (0-0.045) ng/ml Total Protein (6.4-8.2) gm/dl Albumin (3.4-5.0) gm/dl Globulin (2.5-4.0) gm/dl Albumin/Globulin Ratio (0.9-2) Lipase (73-393) U/L Blood Type Antibody Screen Crossmatch 07/19/18 07/19/18 07/19/18 Range/Units 22:40 19:45 18:45 WBC (4.8-10.8) K/uL RBC (4.7-6.1) M/uL Hgb (14.0-18.0) g/dL Hct (42-52) % MCV (80-100) fL MCH (25-34) pg MCHC (32-36) g/dL RDW Std Deviation (36.4-46.3) fL RDW Coeff of Erick (11.5-14.5) % Plt Count (130-400) K/uL MPV (7.4-10.4) fL Immature Gran % (Auto) % Neut % (Auto) % Lymph % (Auto) % [place] % (Auto) % Eos % (Auto) % Baso % (Auto) % Immature Gran # (Auto) (0.00-0.02) K/uL Neut # (Auto) (1.4-6.5) K/uL Lymph # (Auto) (1.2-3.4) K/uL [place] # (Auto) (0.11-0.59) K/uL Eos # (Auto) (0-0.5) K/uL Baso # (Auto) (0-0.2) K/uL Giant Platelets RBC Morphology Polychromasia PT (9.0-12.0) Seconds INR (0.9-1.1) APTT (21.0-31.0) Seconds PTT Ratio Sodium 143 144 (136-145) mmol/L Potassium 3.8 4.1 (3.5-5.1) mmol/L Chloride 113 H 112 H (98-107) mmol/L Carbon Dioxide 22 25 (21-32) mmol/L Anion Gap 9.0 7.0 (3-11) BUN 45 H 46 H (7-18) mg/dl Creatinine 1.84 H 1.94 H (0.6-1.4) mg/dl Est Cr Clr Drug Dosing 33.1 31.4 ml/min Est GFR ( Amer) 39.0 36.6 Est GFR (Non-Af Amer) 33.6 31.5 BUN/Creatinine Ratio 24.6 H 23.7 H (10-20) Glucose 86 98 (70-99) mg/dl Calcium 7.1 L 7.2 L (8.5-10.1) mg/dl Magnesium 1.9 (1.8-2.4) mg/dl Total Bilirubin 0.8 (0.2-1) mg/dl AST 29 (15-37) U/L ALT 24 (12-78) U/L Alkaline Phosphatase 85 (45-117) U/L Troponin I 0.030 (0-0.045) ng/ml Total Protein 5.2 L (6.4-8.2) gm/dl Albumin 2.3 L (3.4-5.0) gm/dl Globulin 2.9 (2.5-4.0) gm/dl Albumin/Globulin Ratio 0.8 L (0.9-2) Lipase 159 (73-393) U/L Blood Type O Positive Antibody Screen NEGATIVE Crossmatch See Detail 07/19/18 07/19/18 Range/Units 18:45 18:45 WBC 8.14 (4.8-10.8) K/uL RBC 2.71 L (4.7-6.1) M/uL Hgb 7.7 L (14.0-18.0) g/dL Hct 24.1 L (42-52) % MCV 88.9 (80-100) fL MCH 28.4 (25-34) pg MCHC 32.0 (32-36) g/dL RDW Std Deviation 56.0 H (36.4-46.3) fL RDW Coeff of Erick 17.1 H (11.5-14.5) % Plt Count 63 L (130-400) K/uL MPV 12.4 H (7.4-10.4) fL Immature Gran % (Auto) 0.2 % Neut % (Auto) 74.9 % Lymph % (Auto) 11.9 % [place] % (Auto) 9.5 % Eos % (Auto) 3.4 % Baso % (Auto) 0.1 % Immature Gran # (Auto) 0.02 (0.00-0.02) K/uL Neut # (Auto) 6.09 (1.4-6.5) K/uL Lymph # (Auto) 0.97 L (1.2-3.4) K/uL [place] # (Auto) 0.77 H (0.11-0.59) K/uL Eos # (Auto) 0.28 (0-0.5) K/uL Baso # (Auto) 0.01 (0-0.2) K/uL Giant Platelets RBC Morphology Unremarkable Polychromasia PT 13.5 H (9.0-12.0) Seconds INR 1.3 H (0.9-1.1) APTT 27.3 (21.0-31.0) Seconds PTT Ratio 1.0 Sodium (136-145) mmol/L Potassium (3.5-5.1) mmol/L Chloride (98-107) mmol/L Carbon Dioxide (21-32) mmol/L Anion Gap (3-11) BUN (7-18) mg/dl Creatinine (0.6-1.4) mg/dl Est Cr Clr Drug Dosing ml/min Est GFR ( Amer) Est GFR (Non-Af Amer) BUN/Creatinine Ratio (10-20) Glucose (70-99) mg/dl Calcium (8.5-10.1) mg/dl Magnesium (1.8-2.4) mg/dl Total Bilirubin (0.2-1) mg/dl AST (15-37) U/L ALT (12-78) U/L Alkaline Phosphatase (45-117) U/L Troponin I (0-0.045) ng/ml Total Protein (6.4-8.2) gm/dl Albumin (3.4-5.0) gm/dl Globulin (2.5-4.0) gm/dl Albumin/Globulin Ratio (0.9-2) Lipase (73-393) U/L Blood Type Antibody Screen Crossmatch (1) GI bleed GI bleed type/associated pathology: melena Qualified Code(s): K92.1 - Melena
[2018-07-20] MEDS ORDERED: SODIUM CHLORIDE 0.9% 250 ML IV PRN (09:55)
[2018-07-20] MEDS ORDERED: OCTREOTIDE ACETATE 100 MCG/ML VIAL SQ STA (10:19)
[2018-07-20] MEDS: OCTREOTIDE ACETATE 500 MCG in 0.9 % SODIUM CHLORIDE 100 ML IV SCH ×2 (11:20→21:53)
[2018-07-20 14:34] LABS: Hemoglobin 9.5 g/dL (14.0-18.0)
--- NOTE | 2018-07-20 16:34 | Palliative Care Consultation ---
Date of Consultation July 20, 2018 Assessment & Plan (1) Palliative care encounter: Patient is an 83-year-old male with a history of GALEANO, esophageal varices- status post banding, anemia, thrombocytopenia, hypertension, HLD, paroxysmal A. fib, hypothyroid, and BPH who was recently discharged from the hospital on 07/17. Patient had been home for 2 days when later in the day he complained of rectal pain, melena, and increased weakness and return to the ER. Patient's hemoglobin on 315 at the time of discharge was 8.3, and the ER was 7.7 patient was admitted for GI bleeding-received transfusion of 2 units of packed cells and 1 unit of platelets-his posttransfusion hemoglobin is 9.5. Patient reports increased rectal pain when he takes lactulose-patient's ammonia level during his last admission was 35.7-reduced to 27 after lactulose. Patient would prefer to allow his ammonia level to rise then continue his lactulose-understands that will be increased confusion. Discussed at length with patient and daughter what his wishes are regarding his current treatment. Patient states if he can take the lactulose without pain he is willing to do so-however he is been having significant severe pain whenever he takes it. Patient's CODE STATUS is DNR- completed POLST form with patient and daughter. Patient would want limited interventions, no artificial feedings. Patient is anxious to return back to his apartment at [facility] as he is feeling better. Discussed several scenarios as far as further decline in his condition-including requiring frequent transfusions-at some point may become futile, as well as elevated ammonia levels if he continues to refuse lactulose which would lead to increased confusion and eventually his demise. Discussion clarified patient's wishes for his daughter. Discussed hospice referral so things could be in place if his condition would decline rapidly. Patient would not want to be in hospice at this time if he is doing well-but is excepting of hospice if his condition would rapidly decline or be at the point where frequent transfusions would no longer be helpful. Daughter would like information regarding hospice agencies and possible referral so that hospice care when needed could easily be put in place. Patient named his daughter, Soila, as his medical POA-her phone number is [phone] -GALEANO-can follow ammonia levels, if patient becomes more confused can attempt to give lactulose to decrease ammonia levels if needed. If severe pain with treatment of the ammonia level patient would rather be kept comfortable and go under hospice care. POLST form completed -GI bleeding-patient would like to return home as soon as possible if hemoglobin is stable. Patient would want further transfusions of blood and platelets if needed-understanding that at some point if they become frequent they would be futile and is okay with a hospice referral at that time -Weakness-improved after transfusion -Anemia/thrombocytopenia-patient agreeable to further transfusions -Coagulopathy-patient's admission INR is 1.3-discussed bleeding tendencies with continued liver failure -patient excepting of a hospice referral if condition worsens Will continue to follow and assist with medical decision making with patient and daughter. (2) Cirrhosis: (3) GI bleed: Status post transfusion of 2 units packed cells and 1 unit of platelets- posttransfusion hemoglobin 9.5 Follow hemoglobin levels GI bleed type/associated pathology: melena Qualified Code(s): K92.1 - Melena (4) Weakness: Generalized weakness-improved after transfusion (5) Anemia: Due to GI bleeding-patient agreeable to further transfusions as needed Anemia type: unspecified type Qualified Code(s): D64.9 - Anemia, unspecified (6) Coagulopathy: INR 1.3-may be contributing to the amount of GI bleeding Due to GALEANO History of Present Illness Reason for Consultation: Address goals of care Requesting Physician: Dr Brantley Attending Physician: Nino Brantley MD History of Present Illness Patient is an 83-year-old male with a history of GALEANO, esophageal varices-status post banding, anemia, thrombocytopenia, hypertension, HLD, paroxysmal A. fib, hypothyroid, and BPH who was recently discharged from the hospital on 07/17. Patient had been home for 2 days when later in the day he complained of rectal pain, melena, and increased weakness and return to the ER. Patient's hemoglobin on 315 at the time of discharge was 8.3, and the ER was 7.7 patient was admitted for GI bleeding-received transfusion of 2 units of packed cells and 1 unit of platelets-his posttransfusion hemoglobin is 9.5. Patient reports increased rectal pain when he takes lactulose-patient's ammonia level during his last admission was 35.7-reduced to 27 after lactulose. Patient would prefer to allow his ammonia level to rise then continue his lactulose-understands that will be increased confusion. Discussed at length with patient and daughter what his wishes are regarding his current treatment. Patient states if he can take the lactulose without pain he is willing to do so-however he is been having significant severe pain whenever he takes it. Patient's CODE STATUS is DNR- completed POLST form with patient and daughter. Patient would want limited interventions, no artificial feedings. Patient is anxious to return back to his apartment at [facility] as he is feeling better. Discussed several scenarios as far as further decline in his condition-including requiring frequent transfusions-at some point may become futile, as well as elevated ammonia levels if he continues to refuse lactulose which would lead to increased confusion and eventually his demise. Discussion clarified patient's wishes for his daughter. Discussed hospice referral so things could be in place if his condition would decline rapidly. Patient would not want to be in hospice at this time if he is doing well-but is excepting of hospice if his condition would rapidly decline or be at the point where frequent transfusions would no longer be helpful. Daughter would like information regarding hospice agencies and possible referral so that hospice care when needed could easily be put in place. Patient named his daughter, Soila, as his medical POA-her phone number is [phone] Allergies Allergy/AdvReac Type Severity Reaction Status Date / Time lisinopril Allergy Unknown Unknown Verified 07/12/18 19:59 Home Medications Home Medications Medication Instructions Recorded Confirmed Type allopurinol 100 mg PO Q2D 04/27/18 07/19/18 History atorvastatin 40 mg PO HS 04/27/18 07/19/18 History calcium carbonate [Tums] 2,000 mg PO HS 04/27/18 07/19/18 History carvedilol 25 mg PO BID 04/27/18 07/19/18 History ferrous sulfate 325 mg PO DAILY 04/27/18 07/19/18 History furosemide 20 mg PO DAILY 04/27/18 07/19/18 History hydralazine 25 mg PO TID 04/27/18 07/19/18 History isosorbide mononitrate 30 mg PO QAM 04/27/18 07/19/18 History levothyroxine 75 mcg PO QAM 04/27/18 07/19/18 History magnesium oxide 400 mg PO QPM 04/27/18 07/19/18 History metolazone 2.5 mg PO DAILY PRN 04/27/18 07/19/18 History ondansetron HCl 4 mg PO HS PRN 04/27/18 07/19/18 History oxycodone 5 mg PO TID PRN 04/27/18 07/19/18 History potassium chloride 20 meq PO DAILY 04/27/18 07/19/18 History rifaximin 550 mg PO BID 04/27/18 07/19/18 History tamsulosin 0.4 mg PO QPM 04/27/18 07/19/18 History lactulose 15 ml PO BID 30 Days #600 ml 07/17/18 07/19/18 Rx omeprazole 40 mg PO QPM 07/19/18 07/19/18 History Patient History Medical History Hypertension (Chronic) History of non-ST elevation myocardial infarction (NSTEMI) (Chronic) "in October 2010 secondary to severe anemia" Paroxysmal atrial fibrillation (Chronic) Hypothyroidism (Chronic) BPH (benign prostatic hypertrophy) (Chronic) Thrombocytopenia (Chronic) Anemia (Chronic) CKD (chronic kidney disease), stage III (Chronic) Atrial fibrillation (Chronic) Cirrhosis (Chronic) "nonalcoholic fatty liver disease" Dyslipidemia (Chronic) Esophageal varices (Chronic) "Mar 2015- small varices, mild erosive antral gastritis" GERD (gastroesophageal reflux disease) (Chronic) GI bleed (Resolved) Epistaxis (Inactive) Surgical History H/O colonoscopy (Chronic) "2010- adenomatous polyps; 11/2016- polyp, AVM's treated with thermal therapy and clipped, diverticulosis, hemorrhoids" H/O esophagogastroduodenoscopy (Chronic) "Mar 2015- small varices, mild erosive antral gastritis" History of esophagogastroduodenoscopy (EGD) (Resolved) "07/12/1617 grade II esophageal varices, erosive gastropathy" Family History Father Heart disease Mother Tuberculosis Social History Communication Ability: Effective Beliefs That Will Affect Care: None marital status: / Current Living Situation: Alone Current Living Situation Comment: [facility] current occupational status: retired Feels Safe at Home: Yes Safety Concerns: Feels Safe At This Time Smoking Status: Former smoker Hx Alcohol Use: No Hx Substance Use: No Review of Systems Patient denies fever, chills, chest pain, increased shortness of breath, or current abdominal pain. Patient does report positive rectal pain with lactulose, reports weakness has improved after transfusion Physical Exam Vital Signs (Past 24 Hours): Last Vital Signs Temp 36.6 C 07/20/18 15:01 Pulse 73 07/20/18 15:01 Resp 19 07/20/18 15:01 BP 121/67 07/20/18 15:01 Pulse Ox 97 07/20/18 15:01 Physical Exam: PE: No acute distress-sitting up in a chair, daughter at bedside HEENT: EOMI, mild hard of hearing Respiratory: Lungs clear, respirations unlabored CV: Regular rate, positive lower extremity edema Abdomen: Soft, nontender to palpation Extremities: Full range of motion, generalized weakness Neuro: Alert and oriented, positive memory deficits Psych: Appropriate Time Spent Attending Total time spent 90 minutes with greater than 50% of the time spent at bedside discussing patient's current clinical condition as well as delineating patient's wishes and goals of care. Also completed POLST form - copy made and scanned into chart, original given to daughter to place in a visible place in pt's apt.
[2018-07-20] MEDS: ACETAMINOPHEN 325 MG TAB PO PRN (17:07)
--- NOTE | 2018-07-20 20:03 | Hospitalist Progress Note ---
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, h/o varices s/p banding in October 2016 Multiple past admissions requiring blood transfusion Hgb on admission 7.7 Received 2 units PRBC Most recent Hemoglobin 9.5today (stable) GI on board Was plan to get EGD done today Daughter and pt don't want to procced with any intervention procedure Continue IV octreotide and PPI drip Daughter would like to do consservative management Daughter requested to speak to palliative care Palliative care consulted Continue monitor CBC Chronic kidney disease stage 3 Seems to be new baseline btw 1.8 to 1.9 Avoid nephrotoxic agents Monitor BMP Cirrhosis: Continue home dose rifaximin Pt does not want to take the lactulose (causing him to have abdominal pain and multiples BMs) Advised daughter in the last admission if pt does not take the lactulose, his ammonia level will be elevated leading to encephalopathy Atrial fibrillation: Pesistent A fib Rate controlled with Coreg Not on anticoagulation due to coagulopathy, thrombocytopenia Continue coreg 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 Platelets 30 today Platelet transfusion was given today as per GI because pt was planning to get EGD done that was cancelled by family Continue monitor CBC BPH (benign prostatic hypertrophy): Continue tamsulosin Hypothyroidism: Continue levothyroxine DVT px on SCDs CODE status DNR Subjective Pt was seen and examined Lying in bed with no distress Pt said that she feels tired and trying to get some rest Denies any chest pain, palpitation and SOB Physical Exam Vital Signs (Past 24 Hours): Last Vital Signs Temp 36.6 C 07/20/18 18:59 Pulse 78 07/20/18 18:59 Resp 18 07/20/18 18:59 BP 124/68 07/20/18 18:59 Pulse Ox 98 07/20/18 18:59 Physical Exam: General- No acute distress Head- atraumatic Eyes- PERRL, EOMI, ENT- oropharynx clear Neck- supple, no JVD Lungs- clear to auscultation Heart- regular rhythm; no murmur Abdomen- normal bowel sounds, soft, nontender Extremities- no calf tenderness Neuro- alert, oriented x 3; PERRL, EOMI; no facial palsy; no dysarthria Skin- warm & dry (1) GI bleed GI bleed type/associated pathology: melena Qualified Code(s): K92.1 - Melena
[2018-07-20] MEDS: TAMSULOSIN HCL 0.4 MG CAP PO SCH (20:44)
[2018-07-20] MEDS: MAGNESIUM OXIDE 400 MG TAB PO SCH (20:45)
[2018-07-20] MEDS: CALCIUM CARBONATE 500 MG CHEWABLE TAB PO SCH (20:45)
[2018-07-20] MEDS: ATORVASTATIN 40 MG TAB PO SCH (20:47)
[2018-07-21] MEDS: ACETAMINOPHEN 325 MG TAB PO PRN (00:04)
[2018-07-21] MEDS: PANTOprazole 40 MG in DEXTROSE 5% 100 ML IV SCH ×3 (04:13→15:22)
[2018-07-21] MEDS: OCTREOTIDE ACETATE 500 MCG in 0.9 % SODIUM CHLORIDE 100 ML IV SCH ×2 (06:14→19:02)
[2018-07-21] MEDS: LEVOTHYROXINE SODIUM 75 MCG TABLET PO SCH (06:19)
[2018-07-21 07:22] LABS: Hematocrit (blood only) 26.1 % (42-52); Hemoglobin 8.4 g/dL (14.0-18.0); Mean Corpuscular Hgb Conc 32.2 g/dL (32-36); Mean Platelet Volume 11.6 fL (7.4-10.4); Platelet Count 49 K/uL (130-400); RDW Coefficient of Variation 16.7 % (11.5-14.5); RDW Standard Deviation 52.9 fL (36.4-46.3); White Blood Count 3.82 K/uL (4.8-10.8)
[2018-07-21] MEDS: FUROSEMIDE 20 MG TAB PO SCH (09:42)
[2018-07-21] MEDS: FERROUS SULFATE 325 MG TAB PO SCH (09:43)
[2018-07-21] MEDS: CARVEDILOL 25 MG TAB PO SCH ×2 (09:44→21:11)
[2018-07-21] MEDS: POTASSIUM CHLORIDE 20 MEQ TABCR PO SCH (09:44)
[2018-07-21] MEDS: RIFAXIMIN 550 MG TABLET PO SCH ×2 (09:45→21:11)
[2018-07-21] MEDS ORDERED: BISACODYL 5 MG TABEC PO ONE (09:54)
[2018-07-21] MEDS: ISOSORBIDE MONO EXTENDED REL 30 MG TABCR PO SCH (10:01)
--- NOTE | 2018-07-21 11:49 | Hospitalist Progress Note ---
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, h/o varices s/p banding in October 2016 Multiple past admissions requiring blood transfusion Hgb on admission 7.7 Received 2 units PRBC during hospital course Most recent Hemoglobin 8.5 today GI on board Was plan to get EGD done, but was cancelled Daughter and pt did not want to proceed with any intervention procedure Continue IV octreotide and PPI Daughter would like to do conservative management Daughter requested to speak to palliative care Palliative care on board Will check H/H later and if stable will discharge home Will need to get weekly transfusion, will need to get it arrange with [facility] by PCP Chronic kidney disease stage 3 Seems to be new baseline btw 1.8 to 1.9 Avoid nephrotoxic agents Monitor BMP Cirrhosis: Continue home dose rifaximin Pt does not want to take the lactulose (causing him to have abdominal pain and multiples BMs) Advised daughter in the last admission if pt does not take the lactulose, his ammonia level will be elevated leading to encephalopathy Atrial fibrillation: Pesistent A fib Rate controlled with Coreg Not on anticoagulation due to coagulopathy, thrombocytopenia Continue coreg Shingles Rash with dermatone pattern Starting on Valacyclovir BID 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 Platelets 49 today Platelet transfusion was given yesterday as per GI because pt was planning to get EGD done that was cancelled by family Continue monitor CBC BPH (benign prostatic hypertrophy): Continue tamsulosin Hypothyroidism: Continue levothyroxine DVT px on SCDs CODE status DNR Dispostion waiting for placement to discharge Subjective Pt was seen and examined Sitting in chair with no distress Pt said that he slept well last night He would like to go home today He had a dark BM as per nurse Denies any chest pain, palpitation, dizziness and SOB Physical Exam Vital Signs (Past 24 Hours): Last Vital Signs Temp 36.6 C 07/21/18 07:05 Pulse 73 07/21/18 07:05 Resp 17 07/21/18 07:05 BP 135/68 07/21/18 07:05 Pulse Ox 96 07/21/18 07:05 Physical Exam: General- No acute distress Head- atraumatic Eyes- PERRL, EOMI, ENT- oropharynx clear Neck- supple, no JVD Lungs- clear to auscultation Heart- regular rhythm; no murmur Abdomen- normal bowel sounds, soft, nontender Extremities- no calf tenderness Neuro- alert, oriented x 3; PERRL, EOMI; no facial palsy; no dysarthria Skin- warm & dry (1) GI bleed GI bleed type/associated pathology: melena Qualified Code(s): K92.1 - Melena
[2018-07-21 15:05] LABS: Hematocrit (blood only) 29.5 % (42-52); Hemoglobin 9.7 g/dL (14.0-18.0)
[2018-07-21] MEDS: SODIUM CHLORIDE 0.9% 1000ML 1,000 ML IV SCH (15:19)
--- NOTE | 2018-07-21 16:04 | Palliative Care Progress Note ---
Date of Service July 21, 2018 Assessment & Plan (1) Palliative care encounter: Patient is an 83-year-old male with a history of GALEANO, esophageal varices- status post banding, anemia, thrombocytopenia, hypertension, HLD, paroxysmal A. fib, hypothyroid, and BPH who was recently discharged from the hospital on 07/17. Patient had been home for 2 days when later in the day he complained of rectal pain, melena, and increased weakness and return to the ER. Patient's hemoglobin on 07/17 (at the time of discharge) was 8.3, and the ER was 7.7 patient was admitted for GI bleeding-received transfusion of 2 units of packed cells and 1 unit of platelets-his posttransfusion hemoglobin is 9.5. Patient reports increased rectal pain when he takes lactulose-patient's ammonia level during his last admission was 35.7-reduced to 27 after lactulose. Patient would prefer to allow his ammonia level to rise then continue his lactulose-understands that will be increased confusion. Had a discussion yesterday with patient and daughter regarding his wishes for further treatment. Patient states if he can take the lactulose without pain he is willing to do so-however he is been having significant severe pain whenever he takes it. Patient's CODE STATUS is DNR- completed POLST form yesterday with patient and daughter. Patient would want limited interventions, no artificial feedings. Patient is anxious to return back to his apartment at [facility] as he is feeling better. Discussion clarified patient's wishes for his daughter. Discussed hospice referral so things could be in place if his condition would decline rapidly. Patient would not want to be in hospice at this time if he is doing well-but is excepting of hospice if his condition would rapidly decline or be at the point where frequent transfusions would no longer be helpful. Daughter would like information regarding hospice agencies and possible referral so that hospice care when needed could easily be put in place -left message today for case management. Patient named his daughter, Soila, as his medical POA-her phone number is [phone]. Was unable to reach daughter today regarding the new finding of shingles-do not know if she is aware. Patient is hopeful that this will not delay his discharge for any significant length of time. Patient's hemoglobin has been stable at 9.7, platelet count 49K. -GALEANO-can follow ammonia levels, if patient becomes more confused can attempt to give lactulose to decrease ammonia levels if needed. If severe pain with treatment of the ammonia level patient would rather be kept comfortable and go under hospice care. POLST form completed -GI bleeding-patient would like to return home as soon as possible if hemoglobin is stable. Patient would want further transfusions of blood and platelets if needed-understanding that at some point if they become frequent they would be futile and is okay with a hospice referral at that time -Weakness-improved after transfusion -Anemia/thrombocytopenia-patient agreeable to further transfusions -Coagulopathy-patient's admission INR is 1.3-discussed bleeding tendencies with continued liver failure -patient excepting of a hospice referral if condition worsens -New rash, left flank-consistent with shingles-plan is to start Valtrex Will continue to follow and assist with medical decision making with patient and daughter. (2) Cirrhosis: (3) GI bleed: Status post transfusion of 2 units packed cells and 1 unit of platelets- posttransfusion hemoglobin 9.5, hemoglobin this afternoon 9.7 Follow hemoglobin levels (4) Weakness: Generalized weakness-improved after transfusion (5) Anemia: Due to GI bleeding-patient agreeable to further transfusions as needed (6) Coagulopathy: INR 1.3-may be contributing to the amount of GI bleeding Due to GALEANO Subjective Patient is awake and alert, sitting in a chair at the bedside. Patient appears slightly more confused than on exam yesterday, however his daughter is not present and this may be contributing. Nursing reports patient started with a rash along the left flank consistent with shingles-he is on contact precautions. Patient's hemoglobin has remained stable at 9.7. Patient reports several bowel movements are light brown in color, no more melena. Left message for case management to provide daughter with information regarding transition to hospice should his condition declined. Review of Systems Patient denies fever, chills, chest pain, increased shortness of breath, or abdominal pain. He does note some slight itching on his left flank, no pain. Physical Exam Vital Signs (Past 24 Hours): Last Vital Signs Temp 36.5 C 07/21/18 15:46 Pulse 72 07/21/18 15:46 Resp 18 07/21/18 15:46 BP 127/76 07/21/18 15:46 Pulse Ox 98 03/19/19 15:46 Physical Exam: PE: NAD HEENT: EOMI, mild YOCHA DEHE CV: Rate controlled, no increased edema Abdomen: Soft, nontender Skin: Macular rash left flank consistent with shingles-no blistering, no pain Neuro: Appears slightly more confused than yesterday Time Spent Attending Total time spent 35 minutes with greater than 50% of the time spent at bedside answering patient's questions regarding his discharge home as well as his suspected shingles. (1) GI bleed GI bleed type/associated pathology: melena Qualified Code(s): K92.1 - Melena (2) Anemia Anemia type: unspecified type Qualified Code(s): D64.9 - Anemia, unspecified
[2018-07-21] MEDS ORDERED: Nursing to Pharmacy Communication ONE (17:14)
[2018-07-21] MEDS: PANTOprazole 40 MG in SYRINGE 0 ML IV SCH (21:10)
[2018-07-21] MEDS: TAMSULOSIN HCL 0.4 MG CAP PO SCH (21:11)
[2018-07-21] MEDS: MAGNESIUM OXIDE 400 MG TAB PO SCH (21:11)
[2018-07-21] MEDS: CALCIUM CARBONATE 500 MG CHEWABLE TAB PO SCH (21:11)
[2018-07-21] MEDS: ATORVASTATIN 40 MG TAB PO SCH (21:11)
[2018-07-22] MEDS: LEVOTHYROXINE SODIUM 75 MCG TABLET PO SCH (05:16)
[2018-07-22] MEDS: OCTREOTIDE ACETATE 500 MCG in 0.9 % SODIUM CHLORIDE 100 ML IV SCH ×2 (05:17→13:38)
[2018-07-22 07:31] VITALS: BP 152/83; PULSE 20; TEMP 98.4; O2SAT 98
[2018-07-22] MEDS: FERROUS SULFATE 325 MG TAB PO SCH (07:34)
[2018-07-22] MEDS: CARVEDILOL 25 MG TAB PO SCH (07:34)
[2018-07-22] MEDS: ISOSORBIDE MONO EXTENDED REL 30 MG TABCR PO SCH (07:35)
[2018-07-22] MEDS: FUROSEMIDE 20 MG TAB PO SCH (07:35)
[2018-07-22] MEDS: POTASSIUM CHLORIDE 20 MEQ TABCR PO SCH (07:35)
[2018-07-22] MEDS: ALLOPURINOL 100 MG TAB PO SCH (07:35)
[2018-07-22] MEDS: RIFAXIMIN 550 MG TABLET PO SCH (07:35)
[2018-07-22] MEDS: PANTOprazole 40 MG in SYRINGE 0 ML IV SCH (08:41)
[2018-07-22 09:48] LABS: Hematocrit (blood only) 29.3 % (42-52); Hemoglobin 9.6 g/dL (14.0-18.0); Mean Corpuscular Hgb Conc 32.8 g/dL (32-36); Mean Corpuscular Volume 89.6 fL (80-100); RDW Coefficient of Variation 16.7 % (11.5-14.5); Red Blood Count 3.27 M/uL (4.7-6.1)
[2018-07-22] MEDS ORDERED: VALACYCLOVIR HCL 500 MG TABLET PO SCH (10:00)
[2018-07-22 10:25] LABS: Mean Platelet Volume 11.9 fL (7.4-10.4); Platelet Count 57 K/uL (130-400)
[2018-07-22 10:26] LABS: Platelet Estimate Decreased (Normal)
--- NOTE | 2018-07-22 15:08 | Hospitalist Progress Note ---
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, h/o varices s/p banding in October 2016 Multiple past admissions requiring blood transfusion Hgb on admission 7.7 Received 2 units PRBC during hospital course Most recent Hemoglobin 8.5 today GI on board Was plan to get EGD done, but was cancelled Daughter and pt did not want to proceed with any intervention procedure Continue IV octreotide and PPI Daughter would like to do conservative management Daughter requested to speak to palliative care Palliative care on board Will check H/H later and if stable will discharge home Will need to get weekly transfusion, will need to get it arrange with [facility] by PCP 07/22 Clinically stable Hbg today 9.6 Pt and daughter declined EGD or intervention procedure Monitor H/H weekly and transfuse if needed Pt can get transfusion as an outpatient with [facility] (PCP can arrange for that) Chronic kidney disease stage 3 Seems to be new baseline btw 1.8 to 1.9 Avoid nephrotoxic agents Monitor BMP Cirrhosis: Continue home dose rifaximin Pt does not want to take the lactulose (causing him to have abdominal pain and multiples BMs) Advised daughter in the last admission if pt does not take the lactulose, his ammonia level will be elevated leading to encephalopathy Atrial fibrillation: Pesistent A fib Rate controlled with Coreg Not on anticoagulation due to coagulopathy, thrombocytopenia Continue coreg Shingles Rash with dermatone pattern Continue Valacyclovir BID 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 Platelets 57 today Platelet transfusion was given yesterday as per GI because pt was planning to get EGD done that was cancelled by family Continue monitor CBC BPH (benign prostatic hypertrophy): Continue tamsulosin Hypothyroidism: Continue levothyroxine DVT px on SCDs CODE status DNR Dispostion Discharge home with home health services Check CBC with 1 week Subjective Pt was seen and examined Walking to the bathroom with assistance with the nursing staff Pt said that he feels fine Insurance denies SNF Denies any chest pain, palpitation, dizziness and SOB Physical Exam Vital Signs (Past 24 Hours): Last Vital Signs Temp 36.9 C 07/22/18 13:26 Pulse 20 L 07/22/18 13:26 Resp 18 07/22/18 13:26 BP 152/83 H 07/22/18 13:26 Pulse Ox 98 07/22/18 13:26 Physical Exam: General- No acute distress Head- atraumatic Eyes- PERRL, EOMI, ENT- oropharynx clear Neck- supple, no JVD Lungs- clear to auscultation Heart- regular rhythm; no murmur Abdomen- normal bowel sounds, soft, nontender Extremities- no calf tenderness Neuro- alert, oriented x 3; PERRL, EOMI; no facial palsy; no dysarthria Skin- warm & dry, rash located Left upper lateral area of his back (1) GI bleed GI bleed type/associated pathology: melena Qualified Code(s): K92.1 - Melena
--- NOTE | 2018-07-22 22:46 | Discharge Summary ---
Date of Service July 22, 2018 Admission HPI Per Admitting Provider CHIEF COMPLAINT: GI bleed. 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 The patient was recently in the hospital, admitted on 07/12/2018 and discharged on 07/17/2018 with the symptomatic anemia, at that time hemoglobin was 6.5, received 3 units PRBCs and hemoglobin was 8.3 on discharge. Seen by GI. No intervention was done as patient was stabilized and because of history of AVMs in the past and got discharged. The patient is on [facility] list for [facility]. Currently, getting home health. Lives alone. Daughter checks on him. The patient has been doing okay until today afternoon. Today morning, he had a couple of bowel movements, which were normal. Appetite is not that great, but he was eating okay, ambulating okay with walker and in the afternoon he called his daughter and said he was feeling weak and tired and he has some black tarry stools again and questions of some blood in the stools, so he was brought into the hospital. His hemoglobin is 7.7. Currently, resting comfortably and hemodynamically stable. Denies any abdominal pain. No nausea, no vomiting, no chest pain, no shortness of breath. No cough, no headache, no blurred vision. No difficulty swallowing. He has some swelling in the legs. No rash. The patient does not want to take lactulose because it is causing a lot of diarrhea. Denies any burning micturition. Admission Exam Per Admitting Provider GENERAL: The patient is old and frail, not in acute distress. VITAL SIGNS: Temperature 36.5, pulse 68, respiratory rate 18, blood pressure 110/67, oxygen 98% room air. HEENT: No pallor, no icterus. Pupils equal, round, and react to light. NECK: No JVD, no neck mass. No carotid bruit. CARDIOVASCULAR: S1, S2 heard, regular rate and rhythm, no murmur, no gallop. RESPIRATORY SYSTEM: Normal AP diameter. No accessory muscle use. No wheezing, no crackles. ABDOMEN: Soft, bowel sounds present, nontender. No distention. CENTRAL NERVOUS SYSTEM: Cranial nerves II-XII grossly intact. Nonfocal. EXTREMITIES: Pedal edema present, no erythema seen. Principal Diagnosis GI bleed Chronic kidney disease stage 3 Thrombocytopenia Afib Hypothyroidism Discharge Exam General- No acute distress Head- atraumatic Eyes- PERRL, EOMI, ENT- oropharynx clear Neck- supple, no JVD Lungs- clear to auscultation Heart- regular rhythm; no murmur Abdomen- normal bowel sounds, soft, nontender Extremities- no calf tenderness Neuro- alert, oriented x 3; PERRL, EOMI; no facial palsy; no dysarthria Skin- warm & dry, rash located Left upper lateral area of his back Discharge Data Allergies Allergy/AdvReac Type Severity Reaction Status Date / Time lisinopril Allergy Unknown Unknown Verified 07/12/18 19:59 Consultations 07/19/18 19:56 ED Decision to Admit Stat 07/19/18 22:22 Consult Case Management - Discharge Planning Routine 07/20/18 08:00 Consult Gastroenterology Routine 07/20/18 11:47 Consult Palliative Care Routine Procedures Performed Operation Date: 07/20/18 09:15 <No data on this case meets the specified criteria> Ordered Studies XR chest 1V portable CLINICAL HISTORY: gi bleed COMPARISON STUDY: 07/12/2018 FINDINGS: The heart remains enlarged. There is no failure. There is no focal pulmonary consolidation. There are no pleural effusions. There is no free intraperitoneal air.[ IMPRESSION: No active disease in the chest. Electronically signed by: Umang Roberson M.D. 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, h/o varices s/p banding in October 2016 Multiple past admissions requiring blood transfusion Hgb on admission 7.7 Received 2 units PRBC during hospital course Most recent Hemoglobin 8.5 today GI on board Was plan to get EGD done, but was cancelled Daughter and pt did not want to proceed with any intervention procedure Continue IV octreotide and PPI Daughter would like to do conservative management Daughter requested to speak to palliative care Palliative care on board Will check H/H later and if stable will discharge home Will need to get weekly transfusion, will need to get it arrange with [facility] by PCP 07/22 Clinically stable Hbg today 9.6 Pt and daughter declined EGD or intervention procedure Monitor H/H weekly and transfuse if needed Pt can get transfusion as an outpatient with [facility] (PCP can arrange for that) Chronic kidney disease stage 3 Seems to be new baseline btw 1.8 to 1.9 Avoid nephrotoxic agents Monitor BMP Cirrhosis: Continue home dose rifaximin Pt does not want to take the lactulose (causing him to have abdominal pain and multiples BMs) Advised daughter in the last admission if pt does not take the lactulose, his ammonia level will be elevated leading to encephalopathy Atrial fibrillation: Pesistent A fib Rate controlled with Coreg Not on anticoagulation due to coagulopathy, thrombocytopenia Continue coreg Shingles Rash with dermatone pattern Continue Valacyclovir BID 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 Platelets 57 today Platelet transfusion was given yesterday as per GI because pt was planning to get EGD done that was cancelled by family Continue monitor CBC BPH (benign prostatic hypertrophy): Continue tamsulosin Hypothyroidism: Continue levothyroxine DVT px on SCDs CODE status DNR Dispostion Discharge home with home health services Check CBC with 1 week Total Time Total Time Spent Total Time Spent (In Minutes): 35 minutes Total Time Includes: Examination of the Patient, Discharge Planning, Medication Reconciliation, Communication With Other Providers and Other Discharge Plan Discharge Items Patient Disposition: Home - Home Health Services Reason For Visit: GI BLEED Discharge Diagnosis: GI bleed Chronic kidney disease stage 3 Thrombocytopenia Afib Hypothyroidism Discharge Goals: Decrease discomfort, Improve disease control, Improve function and Increase independence Activity: Resume your previous activity Activity Comment: As tolerated Non-emergency contact: Primary Care Provider Call non-emergency contact if: you have any medication questions Follow-up/Referrals: Marilynn Al DO [Primary Care Provider] - Diet: Heart Healthy Addtl Provider Instructions: Follow up with your primary care provider Follow up with Gatroenterology Check CBC in 1 week to monitor hemoglobin (your physician can arrange for blood transfusion to be given in the [facility]) Check BMP in 1 week to monitor creatinine and electrolytes Fall precaution Continue physical therapy and occupational therapy Complete the course of the valacyclovir for the shingles Prescriptions: New valacyclovir 500 mg Tablet 1,000 mg PO BID 6 Days Qty: 24 RF: 0 omeprazole 40 mg capsule,delayed release(DR/EC) 40 mg PO BID 30 Days Qty: 60 RF: 0 Continued metolazone 2.5 mg Tablet 2.5 mg PO DAILY PRN (Reason: Fluid Retention) RF: 0 atorvastatin 40 mg Tablet 40 mg PO HS RF: 0 carvedilol 25 mg Tablet 25 mg PO BID RF: 0 ondansetron HCl 4 mg Tablet 4 mg PO HS PRN (Reason: Nausea) RF: 0 isosorbide mononitrate 30 mg Tablet Extended Release 24 Hr 30 mg PO QAM RF: 0 hydralazine 25 mg Tablet 25 mg PO TID RF: 0 allopurinol 100 mg Tablet 100 mg PO Q2D RF: 0 levothyroxine 75 mcg Tablet 75 mcg PO QAM RF: 0 potassium chloride 20 mEq Tablet,Er Particles/Crystals 20 meq PO DAILY RF: 0 tamsulosin 0.4 mg Capsule 0.4 mg PO QPM RF: 0 ferrous sulfate 325 mg (65 mg iron) Tablet 325 mg PO DAILY RF: 0 calcium carbonate [Tums] 200 mg calcium (500 mg) Tablet,Chewable 2,000 mg PO HS RF: 0 furosemide 20 mg Tablet 20 mg PO DAILY RF: 0 oxycodone 5 mg Tablet 5 mg PO TID PRN (Reason: Pain) RF: 0 rifaximin 550 mg Tablet 550 mg PO BID RF: 0 magnesium oxide 400 mg magnesium Tablet 400 mg PO QPM RF: 0 lactulose 20 gram/30 mL Solution 15 ml PO BID 30 Days Qty: 600 RF: 0 Stand-Alone Forms: [facility] Discharge Orders: Discharge Order (Routine); Ordered 07/22/18 Ordered By: Nino Brantley Admission Data Admit Date/Time: 07/19/18 22:00 Attending Provider: Nino Brantley Admit Provider: Abhay Palencia Primary Care Provider: Marilynn Al Other Providers: Abhay Palencia ; Sukumar Escudero ; Blessing Santos ; Paula Valdovinos ; Medhat Alvarez ; Stefan Richter ; Wilma Milian ; Audrey An ; Jeremías Shoemaker ; Riccardo Johnson ; Camille Boykin ; Maeve Yin ; Bonnie Balderrama ; Elizabeth Luo ; Christina Torres ; Lucie Ballesteros Service: Medical Other Interventions: Discharge Summary Assessment (RN) Last Done: 07/22/18 13:26 DC Date/Time DO NOT enter until pt leaves facility: 07/22/18 18:00
== END 2018-07-22 18:00 | disposition home health service (06) ==
LOC: 2S 18:27 → ED 18:27 → 2S 21:54 → 4E 07-21 16:09